=== PATIENT | male | born 1985 | race Caucasian/White ===

== ENCOUNTER 2018-05-21 12:05 | Emergency (ER) | payer MEDICAID, SELFPAY ==
[2018-05-21 12:10] VITALS: BP 150/62; PULSE 93; RESP 16; TEMP 36.4; O2SAT 98
--- NOTE | 2018-05-21 12:44 | ED.GENADUL_ITS ---
Discharge Plan Disposition Patient Disposition: AGAINST MEDICAL ADVICE Condition: Fair Discharge Details Chief Complaint: Nausea/Vomit/Diar Clinical Impression: Alcohol abuse, Abdominal pain Primary Care Provider: Joel Martinez ED Provider: Abigail Villafana Home Meds and New Rx's Prescriptions: No Action gabapentin 600 MG tablet 600 mg PO TID Qty: 270 RF: 4 buprenorphine-naloxone [Suboxone] 1 EACH film 8 mg Sublingual DAILY RF: 0 magnesium oxide 400 MG tablet 800 mg PO DAILY RF: 0 methocarbamol 500 MG tablet 500 mg PO Q 8 pm Qty: 30 RF: 3 acetaminophen [Mapap Extra Strength] 500 MG tablet 1,000 mg PO Q8H Qty: 60 RF: 2 ibuprofen 800 MG tablet 800 mg PO Q8H PRN PRNQty: 60 RF: 3 Discharge Instructions Instructions: Abuse of Alcohol (ED), Abdominal Pain (ED) Additional Instructions: You should stop drinking safely under the supervision of a physician or rehab. Return immediately to the emergency department any worsening or new concerning symptoms. Discharge Data Discharge Physician: Abigail Villafana Medical Decision Making 33yo M w/ a h/o daily alcohol use and former heroin/prescription drug abuse, on suboxone, who presents with 1 month ago of vomiting, diarrhea, weakness and productive cough and 1 week of epigastric and RLQ abdominal pain. Afebrile. Blood pressure and heart rate mildly elevated. Patient appears uncomfortable. Abdomen diffusely tender. No rigidity. No signs of acute abdomen. No other physical signs of acute alcohol withdrawal, no shaking or tremors. Differential diagnosis includes pancreatitis, gastroenteritis, appendicitis, pneumonia, cholecystitis, alcohol withdrawal, electrolyte abnormality. We will place an IV, fluids, labs, CT abdomen and pelvis and chest x-ray. Will give a dose of Zofran, Pepcid and order Ativan as needed. 1350 --nurse initially unable to obtain IV access due to poor peripheral access. Additional staff attempting to obtain IV and patient now requesting to leave. Patient stated if I waited to be taking care of by you guys, I would never be treated. It was discussed with patient that we had tried multiple times to obtain an IV, and subsequently around the same time a critical patient came into the ED which required multiple nursing staff. Patient refusing to sign AMA form or wait for paperwork. HPI General Mode of arrival: ambulatory . Date/Time Provider Initiated Documentation: 05/21/18 12:13 . Limitations to Documentation: no limitations . Information obtained by: patient . HPI Narrative: Patient is a 33-year-old male with a history of daily alcohol abuse and former heroin and prescription drug abuse on Suboxone who presents to the ED with complaint of 1 month of vomiting, alternating diarrhea and constipation, generalized weakness and cough. His cough has been productive of green sputum. States he has been vomiting approximately 20 times daily which is mainly yellow or bile. States he has not had diarrhea for the past few days but prior to that he had one episode daily of watery brown stool with no bleeding. States he has had history of pancreatitis and is concerned that this may be causing his epigastric and right lower quadrant pain for the past week. States the pain is diffuse and feels like bloating and is currently 8/10. He denies any known fever or urinary symptoms. He states his last alcoholic drink was this morning but this made him sick so he stopped. He drank because he thought it would make him feel better. States he did not drink at all yesterday due to his symptoms but states he normally drinks daily. Past medical history: Alcohol abuse, Heroin abuse, Migraines Surgical history: None Social history: Smokes tobacco, Daily alcohol use - 1 pint of liquor or 2 tall boys daily, Former oxycontin/hydrocodone addiction, former heroin user ~ clean since 2014 Meds: Suboxone Allergies: NKDA PCP: Dr. Martinez Related Data Home Medications Medication Instructions Recorded Confirmed buprenorphine-naloxone [Suboxone] 8 mg SUBLINGUAL DAILY film 10/11/17 05/21/18 gabapentin 600 mg PO TID #270 tab-cap 10/11/17 05/21/18 magnesium oxide 800 mg PO DAILY 11/18/17 05/21/18 acetaminophen [Mapap Extra 1,000 mg PO Q8H #60 tab 12/11/17 05/21/18 Strength] ibuprofen 800 mg PO Q8H PRN PRN #60 tablet 12/11/17 05/21/18 methocarbamol 500 mg PO Q 8 pm #30 tab-cap 12/16/17 05/21/18 Previous Rx's Medication Instructions Recorded gabapentin 600 mg PO TID #270 tab-cap 10/11/17 acetaminophen [Mapap Extra 1,000 mg PO Q8H #60 tab 12/11/17 Strength] ibuprofen 800 mg PO Q8H PRN PRN #60 tablet 12/11/17 methocarbamol 500 mg PO Q 8 pm #30 tab-cap 12/16/17 Allergies Allergy/AdvReac Type Severity Reaction Status Date / Time No Known Allergies Allergy Unverified 05/21/18 12:14 General Stated Complaint: Nausea/Vomit/Diar KAVEH: 3 Review of Systems Review of Systems All systems reviewed & are unremarkable except as noted in HPI and below Constitutional Denies chills, Denies excessive sweating, Denies fatigue, Denies fever(s), Reports weakness and Denies weight loss Eyes Reports system reviewed and no additional complaints, except as docu and Denies blurry vision ENT Denies vertigo, Denies dizziness, Denies otalgia, Denies nasal congestion, Denies sore throat and Denies throat swelling Cardiovascular Denies chest pain, Denies syncope, Denies rapid heart rate and Denies dyspnea Respiratory Denies dyspnea Gastrointestinal Reports abdominal pain, Reports diarrhea and Reports vomiting Genitourinary Denies hematuria, Denies dysuria and Denies flank pain Musculoskeletal Denies back pain and Denies joint swelling Integumentary/Breasts Denies lesions and Denies rash Neurologic Denies behavioral changes, Denies confusion, Denies vertigo, Denies dizziness, Denies syncope and Reports weakness Psychiatric Denies behavioral changes, Denies confusion and Denies depression Endocrine Denies excessive sweating and Denies fatigue Hematologic/Lymphatic Denies easy bruising and Denies lymphadenopathy Allergic/Immunologic Denies throat swelling PFSH Family History Mother Heart disease Asthma Father No problems noted. Sister Asthma Sister No problems noted. Brother No problems noted. Grandfather Essential hypertension Heart disease Asthma Grandfather Essential hypertension Heart disease Grandmother No problems noted. Grandmother No problems noted. Son No problems noted. Daughter No problems noted. Daughter Asthma Social History Smoking/Tobacco Use Status: Current every day Exam Const General: cooperative and healthy appearing Orientation: alert and awake [facility] Head: normal to inspection Ears: hearing grossly normal bilaterally and external ears normal General nose exam: external nose normal Face and sinus: normal facial exam Mouth: oral mucosae normal Teeth and gingiva: poor dentition Throat: posterior oropharynx normal Eyes General: appearance normal, both eyes and all related structures Eyelids: eyelids normal EOM: EOM intact bilaterally Neck Neck: normal visual inspection Lymphatic: no lymphadenopathy noted Chest Chest: normal inspection of the chest Resp Effort & Inspection: normal respiratory effort and able to speak in complete sentences Auscultation: clear to auscultation bilaterally Cardio Rate: regular rate Rhythm: regular rhythm GI Inspection: normal to inspection Palpation: soft, not firm, no guarding, no hepatosplenomegaly, no masses and tender in the epigastrum, in the RLQ and in the RUQ; not at McBurney's point, obturator sign negative, psoas sign negative and with no rebound tenderness Auscultation: normal bowel sounds Back/Spine/Pelvis Back: no CVA tenderness Skin General skin exam: no rashes or lesions noted Neuro General: alert and awake Cognition: normal cognition Speech: speech normal Gait: normal gait Motor: muscle tone normal throughout Sensory Exam: no sensory deficits noted Extrem General: normal to inspection, full ROM, normal capillary refill and no edema Psych Appearance: grossly normal Mental Status: mental status grossly normal Speech and Movement: speech and movement normal Affect: normal affect Thought Process: normal Course Vital Signs Temperature 97.5 F L 05/21/18 12:10 Pulse 93 H 05/21/18 12:10 Respiratory Rate 16 05/21/18 12:10 Blood Pressure 150/62 H 05/21/18 12:10 Pulse Oximetry 98 05/21/18 12:10 Temperature 97.5 F L 05/21/18 12:10 Temperature Source Skin 05/21/18 12:10 Pulse 93 H 05/21/18 12:10 Respiratory Rate 16 05/21/18 12:10 Respiratory Effort Non-Labored 05/21/18 12:12 Blood Pressure 150/62 H 05/21/18 12:10 Pulse Oximetry 98 05/21/18 12:10 Oxygen Delivery Method Room Air 05/21/18 12:10 Oxygen Flow Rate 0 05/21/18 12:10 Pain Level 8 05/21/18 12:10
== END 2018-05-21 13:58 | disposition left against medical advice (07) ==
LOC: ER 14:06
PROVIDERS: Emergency Provider Physician Assistant; PCP Family Medicine
DX: F10.10 Alcohol abuse, uncomplicated (principal); R10.13 Epigastric pain; Z53.29 Procedure and treatment not carried out because of patient's decision for other reasons; R10.31 Right lower quadrant pain
CPT/HCPCS: 80053; 83690; 99282; 83735; 84484; 85025

== ENCOUNTER 2018-07-07 10:45 | Emergency (ER) | payer MEDICAID, SELFPAY ==
[2018-07-07 10:54] VITALS: BP 129/79; PULSE 74; RESP 16; TEMP 36.8; O2SAT 99
--- NOTE | 2018-07-07 11:16 | DI.CT_ITS ---
SYMPTOMS/DIAGNOSIS: WRETCHING 1 MONTH, CHRONIC PANCREATITIS, SEVERE PAIN, ? GASTRIC PERFORATION, ACUTE ABD PROCESS CT OF THE CHEST: The heart size is normal. No pleural or pericardial effusions are seen. There is mild respiratory motion. The lungs appear clear. IMPRESSION: Negative chest CT. CT OF THE ABDOMEN AND PELVIS: There is patchy fatty infiltration of the liver. The gallbladder is unremarkable. No biliary dilatation is seen. The spleen is normal in size. There is some fluid around the pancreas and mild dilatation of the pancreatic duct. No focal mass is seen. There is no drainable pseudocyst. The appendix appears normal. Stool is noted throughout the colon. There are no inflammatory changes or bowel dilatation. The bladder and prostate are unremarkable. The kidneys also appear normal. IMPRESSION: Fluid is seen around the pancreas. There is no focal drainable pseudocyst. There is pancreatic ductal dilatation but no biliary dilatation or evidence of calcified gallstones.
[2018-07-07 12:02] LABS: Abs Immature Grans 0.05 k/cumm (0.0-0.09); Absolute Basophil Count 0.02 k/cumm (0.0-0.2); Absolute Eosinophil Count 0.04 k/cumm (0.0-0.7); Basophils % 0.1; Eosinophils % 0.2; HCT 51.2 % (40.0-50.0); HGB 17.9 g/dL (13.5-17.5); Immature Grans % 0.3; Lymphocytes % 6.6; Mean Corpuscular Hemoglobin 34.1 pg (27.0-33.0); Mean Corpuscular Volume 97.5 fL (80-95); Mean Platelet Volume 9.6 fL (8.0-11.0); Monocytes % 4.7; Neutrophils % 88.1; Platelet Count 248 x1000/uL (130-400); RBC 5.25 m/cumm (4.50-6.00); White Blood Cell Count 18.87 k/cumm (4.4-10.8)
--- NOTE | 2018-07-07 12:02 | ED.GENADUL_ITS ---
Discharge Plan Disposition Patient Disposition: HOME Condition: Good Discharge Details Chief Complaint: Abd Prob Clinical Impression: Acute pancreatitis Primary Care Provider: Joel Martinez ED Provider: Jarrod Vaughn Home Meds and New Rx's Prescriptions: New ondansetron HCl [Zofran] 4 mg tablet 4 mg PO QID PRN (Reason: nausea and vomiting) Qty: 20 RF: 0 No Action gabapentin 600 MG tablet 600 mg PO TID Qty: 270 RF: 4 Suboxone 1 EACH film 8 mg Sublingual DAILY RF: 0 magnesium oxide 400 MG tablet 800 mg PO DAILY RF: 0 methocarbamol 500 MG tablet 500 mg PO Q 8 pm Qty: 30 RF: 3 acetaminophen [Mapap Extra Strength] 500 MG tablet 1,000 mg PO Q8H Qty: 60 RF: 2 ibuprofen 800 MG tablet 800 mg PO Q8H PRN PRNQty: 60 RF: 3 Discharge Instructions Instructions: Pancreatitis (ED), Clear Liquid Diet (ED) Additional Instructions: Please take the Zofran as directed for control of your nausea. Please drink 10- 12 cups of fluids per day at minimum. Please start eating and drinking with clear liquids for water down juice and water. Avoid anything fatty. After 1-2 days of this please graduate towards low-sodium low-fat broth, applesauce, crackers and Jell-O. Gradually advance her diet daily from there. If you notice any return of your vomiting in spite of the Zofran please return for admission and IV hydration. If you notice any worsening of your symptoms, or any new symptoms such as vomiting, diarrhea, fever, chills, shortness of breath, chest pain, numbness, weakness, or fainting , please return immediately to the emergency department for reevaluation. Please follow up with your primary care provider as soon as possible for reassessment and reevaluation. As always, it was a pleasure participating in your medical care today. Referrals: Joel Martinez DO [Primary Care Provider] - Medical Decision Making This is a 33-year-old male with past medical history of pancreatitis secondary to alcohol use who presents with 1-2 months of chronic and worsening abdominal pain. His symptoms notably got worse over [place] when he did some drinking during the holidays. Patient has been vomiting 10-20 times per day. He describes it as yellow vomiting with no significant blood. No clinical red flags of Boerhaave syndrome or Melissa-Beckham tear. The patient's symptoms are made worse with food. Physical exam demonstrates tenderness throughout his abdomen including the epigastric region. Because of his symptoms and the frequency of his vomiting we will get a CT scan of the abdomen and chest to rule out any acute process. I do feel that his symptoms are most likely secondary to a worsening chronic pancreatitis versus pancreatic abscess or cyst. We will hold off on narcotics at this time secondary to the patient Suboxone use, but will give Toradol and Tylenol. We will rehydrate the patient and reassess. 1:[address] scan results have returned and per Dr. Mckeon the radiologist there is some mild fluid around the pancreas, but no evidence of Melissa-Beckham tear, mediastinal air, gastric perforation, or other acute abdominal pathology. Patient's laboratory workup demonstrates an elevated white count which I feel is most likely reactive secondary to his multiple episodes of vomiting. No evidence of bandemia. Electrolytes are normal however the patient has an elevated anion gap of 25 most likely secondary to his notably decreased bicarb from his vomiting. Renal function is stable, lipase is notably elevated. Glucose is normal, and laboratory workup is inconsistent with diabetic ketoacidosis. Notable urine ketones are present in the urine. We will do a p.o. trial, the patient has been rehydrated with 2 L of normal saline at this point. Patient's pain is notably improved currently. We will discuss discharge versus admission with the patient. 2 PM The patient has had a notable p.o. trial with a significant amount of water and he has done very well with this. Patient is feeling much better at this time. I had a long discussion with the patient regarding discharge versus admission. Since he is able to tolerate p.o. we have given discharge as an option clearly outlining the risks and benefits with both though especially in light of his labs. At this time patient is requesting discharge home, she do feel is reasonable however I made it very clear to the patient that if he is unable to tolerate anything p.o. that he needs to return immediately for admission and IV hydration. The patient will be given instructions for a brat diet and a graduated diet starting from clear liquids. I had a long and thorough discussion regarding red flags for which to return including a low threshold for return the patient understands. I have extensively reviewed the treatment plan and discharge instructions with the patient and their family. I have addressed all patient concerns at this time. The patient and family was made aware of what symptoms to monitor for that would warrant a return to the emergency department. Discussed the plan with the patient and family, they demonstrate verbal understanding and agreement with our assessment and plan at this time. HPI General Date/Time Provider Initiated Documentation: 07/07/18 10:46 . HPI Narrative: This is a 33-year-old male with a past medical history of IV drug use, who is currently on methadone, as well as a history of chronic alcoholic pancreatitis who presents today for evaluation of abdominal pain. Patient states that for the last month and 1/2-2 months he had has had consistent epigastric abdominal pain which she describes as burning stabbing and aching. It is worse with eating, it is improved by nothing. He has associated vomiting, 10-20 times per day. He describes the vomitus. Yellow with no significant blood. He denies any diarrhea. The patient's symptoms notably got worse over [place] when he did drinking around the holiday season. He had otherwise been sober for quite some time. The patient denies any red flags of tearing chest pain, systemic symptoms of fever or chills, or any other complaints. He states that this feels similar to his previous episodes of pancreatitis. Patient denies any other modifying factors aside for his symptoms being worse with anything he eats. It is improved by nothing. He has no other complaints at this time. Of note the patient did not illicit information initially that he was taking Suboxone or was seen at the Suboxone clinic earlier this morning. Patient denies any previous surgeries on his abdomen. He does admit to both t obacco and marijuana use. Marijuana does not improve his symptoms. His symptoms are not improved with hot showers. He denies any current IV or illicit drug use. Related Data Home Medications Medication Instructions Recorded Confirmed Suboxone 8 mg SUBLINGUAL DAILY film 10/11/17 07/07/18 gabapentin 600 mg PO TID #270 tab-cap 10/11/17 07/07/18 magnesium oxide 800 mg PO DAILY 11/18/17 07/07/18 acetaminophen [Mapap Extra 1,000 mg PO Q8H #60 tab 12/11/17 07/07/18 Strength] ibuprofen 800 mg PO Q8H PRN PRN #60 tablet 12/11/17 07/07/18 methocarbamol 500 mg PO Q 8 pm #30 tab-cap 12/16/17 07/07/18 ondansetron HCl [Zofran] 4 mg PO QID PRN #20 tab 07/07/18 Previous Rx's Medication Instructions Recorded gabapentin 600 mg PO TID #270 tab-cap 10/11/17 acetaminophen [Mapap Extra 1,000 mg PO Q8H #60 tab 12/11/17 Strength] ibuprofen 800 mg PO Q8H PRN PRN #60 tablet 12/11/17 methocarbamol 500 mg PO Q 8 pm #30 tab-cap 12/16/17 ondansetron HCl [Zofran] 4 mg PO QID PRN #20 tab 07/07/18 Allergies Allergy/AdvReac Type Severity Reaction Status Date / Time No Known Allergies Allergy Unverified 07/07/18 12:55 General Stated Complaint: Abd Prob KAVEH: 3 Review of Systems Review of Systems All systems reviewed & are unremarkable except as noted in HPI and below PFSH Social History Smoking/Tobacco Use Status: Current every day Exam Narrative Exam Narrative: 1.Const: Well-nourished, Well-developed, appearing stated age 2.Eyes: PERRL, no conjunctival injection, and symmetrical lids. 3.ENT: Atraumatic external nose and ears. Notably dry MM. Neck: Symmetric, trachea midline, No thyromegaly. 4.CVS: +S1/S2, No murmurs or gallops. Peripheral pulses 2+ and equal in all extremities. Brisk capillary refill in all extremities. No evidence of Marika's crunch, or other abnormality. 5.RESP: Unlabored respiratory effort. Clear to auscultation bilaterally. No wheezes rales or rhonchi 6.GI: Soft, nondistended, tenderness throughout, voluntary guarding in the epigastric region. No evidence of an acute surgical abdomen. 7.MSK: Normocephalic/Atraumatic, Extremities w/o deformity or ttp No cyanosis or clubbing, Normal movement of all extremities 8.Skin: Warm, Dry. No rashes or lesions. No subcutaneous crepitus around the neck or under the skin under the chest. 9.Neuro: cruise staff member II-XII grossly intact. Sensation grossly intact, no focal neurologic deficits. 10.Psych: (AAO) x3. Appropriate mood and affect Course Vital Signs Temperature 36.8 C 07/07/18 10:54 Pulse 74 07/07/18 10:54 Respiratory Rate 16 07/07/18 10:54 Blood Pressure 129/79 07/07/18 10:54 Pulse Oximetry 99 07/07/18 10:54 Temperature 36.8 C 07/07/18 10:54 Temperature Source Skin 07/07/18 10:54 Pulse 74 07/07/18 10:54 Respiratory Rate 16 07/07/18 10:54 Respiratory Effort 07/07/18 11:09 Blood Pressure 129/79 07/07/18 10:54 Blood Pressure Position Sitting 07/07/18 10:54 Pulse Oximetry 99 07/07/18 10:54 Oxygen Delivery Method Room Air 07/07/18 10:54 Oxygen Flow Rate 0 07/07/18 10:54 Pain Level 9 07/07/18 10:54
[2018-07-07 12:03] LABS: Absolute Lymphocyte Count 1.25 k/cumm (1.2-3.4); Absolute Monocyte Count 0.89 k/cumm (0.11-0.7); Absolute Neutrophil Count 16.62 k/cumm (1.2-6.7)
[2018-07-07] MEDS: Acetaminophen 500 MG TAB 1000 MG PO (12:06)
[2018-07-07] MEDS: Ketorolac 30 MG/ML VIAL IVP (12:07)
[2018-07-07] MEDS: Ondansetron 4 MG/2 ML VIAL IVP (12:08)
[2018-07-07] MEDS: Lactated Ringers 1,000 ML 1000 ML IV (12:09)
[2018-07-07 12:18] LABS: Bilirubin Negative (Negative); Blood Trace-intact (Negative); Clarity Clear; Glucose Negative (Negative); Ketones 80 mg/dL (Negative); Leukocyte Esterase Negative (Negative); Nitrite Negative (Negative); Specific Gravity >= 1.030 (1.005-1.025); Urobilinogen 0.2 EU/dL (Up TO 0.2)
[2018-07-07 12:20] LABS: ALT 86 U/L (12-78); AST 82 U/L (15-37); Albumin 5.3 g/dL (3.4-5.0); Alkaline Phosphatase 102 U/L (46-116); Anion Gap 25.6 mmol/L (3-11); BUN 13 mg/dL (7-18); Bilirubin, Total 0.8 mg/dL (0.2-1.0); CO2 14.4 mmol/L (21.0-32.0); CREATININE 1.11 mg/dL (0.70-1.30); Calcium 9.8 mg/dL (8.5-10.1); Chloride 95 mmol/L (98-107); Glucose 91 mg/dL (70-100); Lipase 1351 U/L (73-393); Sodium 135 mmol/L (136-145); Total Protein 9.8 g/dL (6.4-8.2)
[2018-07-07 12:29] LABS: Bacteria Negative HPF (Negative); C & S Indicated? No; Casts 3-5 Hyaline LPF (Negative); Crystals Few Amorphous HPF (Negative); Epithelial Cells Few HPF (Negative); Mucus Trace (Negative); RBC 0-2 (0-2); WBC 0-2 HPF (0-5)
[2018-07-07] MEDS: Normal Saline 1,000 ML 1000 ML IV (12:50)
[2018-07-07] MEDS: Omnipaque 350 MG/ML 100 ML BTL IJ (13:11)
--- NOTE | 2018-07-07 13:46 | NUR.NOTE ---
Nursipt sitting up drinking water at this time just little sips with ice and tolerating well ng Note:
[2018-07-07 14:00] VITALS: BP 136/66; PULSE 63; RESP 16; TEMP 37.1; O2SAT 99
== END 2018-07-07 14:12 | disposition home or self-care (01) ==
PROVIDERS: Emergency Provider Student in an Organized Health Care Education/Training Program; PCP Family Medicine
DX: K85.90 Acute pancreatitis without necrosis or infection, unspecified (principal); Z79.891 Long term (current) use of opiate analgesic; F10.20 Alcohol dependence, uncomplicated
CPT/HCPCS: 36415; 74177; 80053; 83690; 96361; 96374; 96375; 99285; 71260; 81003; 81015; 85025; 99284; J1885; J2405; J3490

== ENCOUNTER 2018-07-07 21:12 | Inpatient (IN) | payer MEDICAID, SELFPAY ==
[2018-07-07 21:14] VITALS: BP 150/80; PULSE 55; RESP 16; TEMP 36.8; O2SAT 99
--- NOTE | 2018-07-07 21:22 | ED.GENADUL_ITS ---
Discharge Plan Disposition Patient Disposition: [facility] INPATIENT Condition: Stable Discharge Details Chief Complaint: Abd Prob Clinical Impression: Acute pancreatitis Reason For Visit: TA Primary Care Provider: Joel Martinez ED Provider: Alex Avendaño Home Meds and New Rx's Prescriptions: No Action gabapentin 600 MG tablet 600 mg PO TID Qty: 270 RF: 4 Suboxone 1 EACH film 8 mg Sublingual DAILY RF: 0 magnesium oxide 400 MG tablet 800 mg PO DAILY RF: 0 methocarbamol 500 MG tablet 500 mg PO Q 8 pm Qty: 30 RF: 3 acetaminophen [Mapap Extra Strength] 500 MG tablet 1,000 mg PO Q8H Qty: 60 RF: 2 ibuprofen 800 MG tablet 800 mg PO Q8H PRN PRNQty: 60 RF: 3 ondansetron HCl [Zofran] 4 mg tablet 4 mg PO QID PRN (Reason: nausea and vomiting) Qty: 20 RF: 0 Medical Decision Making Patient comes in with abodminal pain and persistent vomit since being d/c'd earlier with pancreatitis. He was able to tolerate PO at that time but hasn't since being home and pain hasn't been controlled so came back here. He is actively vomit on my exam. Has epigastric pain without distention. Will repeat labs and speak to hospitalist about admission given he failed outpatient management. HAd CT earlier today so do not feel repeat imaging to eval for acute process is indicated Spoke with Dr. Lazcano who accepts the patient. He feels better but still has pain, will order more pain medication, no long having vomit. He still has no guarding or rebound on exam. Differential Diagnosis pancretitis, hepatitis Lab Data Lab results reviewed: Yes I reviewed the patient's lab results. HPI General Mode of arrival: EMS . Date/Time Provider Initiated Documentation: 07/07/18 21:13 . Limitations to Documentation: no limitations . Information obtained by: patient . History of Present Illness 33 year old M presents to the emergency department with the chief complaint of abdominal pain, described as severe, with intensity rated at 10. Quality is described as sharp, and is localized to the abdomen. Patient started experiencing this day(s) (2) and it has been constant. No relieving factors improve symptom(s), No exacerbating factors reported . Patient notes nausea/vomiting. Patient did receive the following treatments prior to arrival, none Related Data Home Medications Medication Instructions Recorded Confirmed Suboxone 8 mg SUBLINGUAL DAILY film 10/11/17 07/07/18 gabapentin 600 mg PO TID #270 tab-cap 10/11/17 07/07/18 magnesium oxide 800 mg PO DAILY 11/18/17 07/07/18 acetaminophen [Mapap Extra 1,000 mg PO Q8H #60 tab 12/11/17 07/07/18 Strength] ibuprofen 800 mg PO Q8H PRN PRN #60 tablet 12/11/17 07/07/18 methocarbamol 500 mg PO Q 8 pm #30 tab-cap 12/16/17 07/07/18 ondansetron HCl [Zofran] 4 mg PO QID PRN #20 tab 07/07/18 07/07/18 Previous Rx's Medication Instructions Recorded gabapentin 600 mg PO TID #270 tab-cap 10/11/17 acetaminophen [Mapap Extra 1,000 mg PO Q8H #60 tab 12/11/17 Strength] ibuprofen 800 mg PO Q8H PRN PRN #60 tablet 12/11/17 methocarbamol 500 mg PO Q 8 pm #30 tab-cap 12/16/17 ondansetron HCl [Zofran] 4 mg PO QID PRN #20 tab 07/07/18 Allergies Allergy/AdvReac Type Severity Reaction Status Date / Time No Known Allergies Allergy Unverified 07/07/18 12:55 General Stated Complaint: Abd Prob KAVEH: 3 Review of Systems Review of Systems All systems reviewed & are unremarkable except as noted in HPI and below Constitutional Denies chills, Denies fever(s) and Denies weakness ENT Denies change in voice Cardiovascular Denies chest pain Gastrointestinal Denies nausea Musculoskeletal Denies joint swelling Neurologic Denies weakness Endocrine Denies cold intolerance and Denies heat intolerance PFSH Family History Mother Heart disease Asthma Father No problems noted. Sister Asthma Sister No problems noted. Brother No problems noted. Grandfather Essential hypertension Heart disease Asthma Grandfather Essential hypertension Heart disease Grandmother No problems noted. Grandmother No problems noted. Son No problems noted. Daughter No problems noted. Daughter Asthma Social History Smoking/Tobacco Use Status: Current every day Exam Const Orientation: alert HENMT Head: normal to inspection Ears: external ears normal General nose exam: external nose normal Mouth: moist mucous membranes Eyes General: appearance normal, both eyes and all related structures Neck Neck: normal visual inspection Resp Effort & Inspection: normal respiratory effort and able to speak in complete sentences Cardio Rate: regular rate Skin General skin exam: no rashes or lesions noted Neuro General: alert and oriented x3 Extrem General: normal to inspection Psych Mental Status: mental status grossly normal Course Vital Signs Temperature 36.8 C 07/07/18 21:14 Pulse 55 L 07/07/18 21:14 Respiratory Rate 16 07/07/18 21:14 Blood Pressure 150/80 H 07/07/18 21:14 Pulse Oximetry 99 07/07/18 21:14 Temperature 36.8 C 07/07/18 21:14 Temperature Source Skin 07/07/18 21:14 Pulse 55 L 07/07/18 21:14 Respiratory Rate 16 07/07/18 21:14 Blood Pressure 150/80 H 07/07/18 21:14 Blood Pressure Position Sitting 07/07/18 21:14 Pulse Oximetry 99 07/07/18 21:14 Oxygen Delivery Method Room Air 07/07/18 21:14 Oxygen Flow Rate 0 07/07/18 21:14
[2018-07-07] MEDS: Normal Saline 50 ML (21:46)
[2018-07-07] MEDS: HYDROmorphone 2 MG/ML VIAL IVP (21:46)
[2018-07-07] MEDS: Normal Saline 1,000 ML 1000 ML IV (21:47)
[2018-07-07 22:00] LABS: Abs Immature Grans 0.04 k/cumm (0.0-0.09); Absolute Basophil Count 0.02 k/cumm (0.0-0.2); Absolute Eosinophil Count 0.09 k/cumm (0.0-0.7); Absolute Lymphocyte Count 1.31 k/cumm (1.2-3.4); Basophils % 0.1; Eosinophils % 0.6; HCT 47.9 % (40.0-50.0); HGB 16.8 g/dL (13.5-17.5); Immature Grans % 0.3; Lymphocytes % 8.3; Mean Corp. HGB Concentration 35.1 g/dL (32.0-36.0); Mean Corpuscular Hemoglobin 33.8 pg (27.0-33.0); Mean Corpuscular Volume 96.4 fL (80-95); Mean Platelet Volume 9.8 fL (8.0-11.0); Monocytes % 7.5; Neutrophils % 83.2; Platelet Count 216 x1000/uL (130-400); RBC 4.97 m/cumm (4.50-6.00); RBC Distribution Width 12.1 % (11.8-14.1); White Blood Cell Count 15.82 k/cumm (4.4-10.8)
[2018-07-07 22:01] LABS: Absolute Monocyte Count 1.19 k/cumm (0.11-0.7); Absolute Neutrophil Count 13.16 k/cumm (1.2-6.7)
[2018-07-07] MEDS: HYDROmorphone 2 MG/ML VIAL 1 MG IVP (22:06)
[2018-07-07 22:12] LABS: ALT 68 U/L (12-78); AST 56 U/L (15-37); Albumin 4.8 g/dL (3.4-5.0); Alkaline Phosphatase 87 U/L (46-116); BUN 11 mg/dL (7-18); Bilirubin, Direct 0.26 mg/dL (0.00-0.20); Bilirubin, Total 1.1 mg/dL (0.2-1.0); CREATININE 1.02 mg/dL (0.70-1.30); Calcium 9.7 mg/dL (8.5-10.1); Chloride 98 mmol/L (98-107); Glucose 98 mg/dL (70-100); Magnesium 1.9 mg/dL (1.8-2.4); Potassium 3.8 mmol/L (3.5-5.1); Sodium 136 mmol/L (136-145); Total Protein 8.5 g/dL (6.4-8.2)
[2018-07-07 23:01] LABS: ETHANOL BLOOD < 3.0 mg/dL (<3); Lipase 7127 U/L (73-393)
[2018-07-07 23:08] VITALS: BP 150/80; PULSE 55; RESP 16; TEMP 36.8; O2SAT 99
[2018-07-07 23:37] VITALS: BP 144/85; PULSE 48; RESP 16; TEMP 36.5; O2SAT 100
[2018-07-08] VITALS (79 sets, daily range): BP systolic 127–172; BP diastolic 67–97; PULSE 52–82; RESP 11–22; TEMP 36.5–37.7; O2SAT 80–100
[2018-07-08] MEDS: Normal Saline Flush 10 ML SYR IVP ×3 (00:40→10:36)
[2018-07-08] MEDS: Normal Saline 50 ML 100 ML (00:40)
[2018-07-08 01:05] LABS: *AMPHETAMINES SCREEN URINE Negative (Negative); *BARBITURATES SCREEN URINE Negative (Negative); *BENZODIAZEPINES SCREEN URINE Negative (Negative); Cannabinoids THC POSITIVE (Negative); Cocaine Screen,Urine Negative (Negative); METHADONE URINE SCREEN Negative (Negative); OPIATES URINE SCREEN POSITIVE (Negative)
[2018-07-08 01:07] LABS: Tricyclic Antidepressants Negative (Negative)
--- NOTE | 2018-07-08 02:03 | HPE_ITS ---
Date of service: 07/08/18 Time of Service: 02:02 Assessment and Plan (1) Acute pancreatitis: Current visit: Yes Status: Acute Most likely cause of his pancreatitis is his chronic alcohol abuse. CT scan of the abdomen and pelvis failed to show any calcified gallstones. Nevertheless will follow up with an abdominal ultrasound in the morning. Keep n.p.o. for now and give aggressive IV fluid hydration along with narcotic analgesics and antiemetics. (2) High anion gap metabolic acidosis: Current visit: Yes Status: Acute Probably secondary to dehydration and chronic alcoholism in the setting of acute pancreatitis. Will check venous blood gas to assess acidosis and obtain blood lactate level. Continue with aggressive IV fluid hydration (3) Alcohol abuse: Current visit: Yes Status: Chronic Patient states he went through acute alcohol withdrawal the first time he abstain from alcohol. He reportedly has not had a drink of alcohol for a week now. Nevertheless we will monitor CIWA scale and treat accordingly (4) Elevated transaminase level: Current visit: Yes Status: Acute Probably due to alcoholic hepatitis. However given his tattoos and history of IV drug abuse will screen him for HIV and hepatitis History of Present Illness Chief Complaint: nausea, vomiting, abdominal pain Narrative: 33-year-old male with a history of alcohol abuse and former abuser of heroin and narcotics currently in his Suboxone maintenance program to [facility]. He presented earlier on morning of July 07, 2018 to the emergency department with nausea and vomiting and was diagnosed with acute pancreatitis and was found to have an elevated lipase of 1351 and mild elevation of his transaminases and CT scan demonstrated peripancreatic fluid and mild dilatation of the pancreatic duct with no evidence for pseudocyst nor evidence of calcified gallstones. Working diagnosis was that he had acute alcoholic pancreatitis. He has had a history of pancreatitis in the past was first diagnosed in 2015. It is been recommended to him that he be admitted to the hospital when he first presented the emergency room on the morning of July 07, 2018 but because he was able to keep down fluids he decided he would try to treat this as an outpatient. He represented to the emergency department later in the evening of July 07, 2018 with continued nausea and vomiting and worsening abdominal pain. Imaging was not repeated but labs were repeated and now his lipase was found to be elevated to over 7000 and a leukocytosis of 15,000 and an elevated anion gap of 23 with modest elevation of his transaminases with an AST of 56 but a normal alkaline phosphatase of 87 and an elevated total bilirubin of 1.1. Urine drug screen was positive for opiates and THC but otherwise was negative for routine drugs of abuse including methadone barbiturates tricyclic antidepressants amphetamines and benzodiazepines and cocaine. Patient is now admitted for treatment of acute pancreatitis and dehydration. Repeat imaging with an abdominal ultrasound will be performed in the morning. Review of Systems Review of Systems All systems reviewed & are unremarkable except as noted in HPI and below Constitutional Reports system reviewed and no additional complaints, except as docu Gastrointestinal Reports abdominal pain (epigastric and LUQ), Denies coffee ground emesis, Reports nausea and Reports vomiting (biliary emesis) [facility] Medical History Acute pancreatitis (Acute) Opiate addiction (Chronic) Alcohol abuse (Chronic) Heroin abuse (Chronic) Chronic back pain (Chronic) Depression (Chronic) Anxiety, generalized (Chronic) Family History Mother Heart disease Asthma Father No problems noted. Sister Asthma Sister No problems noted. Brother No problems noted. Grandfather Essential hypertension Heart disease Asthma Grandfather Essential hypertension Heart disease Grandmother No problems noted. Grandmother No problems noted. Son No problems noted. Daughter No problems noted. Daughter Asthma Social History Smoking/Tobacco Use Status: Current every day Meds Home Medications Medication Instructions Recorded Confirmed Type Suboxone 8 mg SUBLINGUAL DAILY film 10/11/17 07/07/18 History gabapentin 600 mg PO TID #270 tab-cap 10/11/17 07/07/18 Rx magnesium oxide 800 mg PO DAILY 11/18/17 07/07/18 History acetaminophen [Mapap Extra 1,000 mg PO Q8H #60 tab 12/11/17 07/07/18 Rx Strength] ibuprofen 800 mg PO Q8H PRN PRN #60 tablet 12/11/17 07/07/18 Rx methocarbamol 500 mg PO Q 8 pm #30 tab-cap 12/16/17 07/07/18 Rx ondansetron HCl [Zofran] 4 mg PO QID PRN #20 tab 07/07/18 07/07/18 Rx Allergies Allergy/AdvReac Type Severity Reaction Status Date / Time No Known Allergies Allergy Unverified 07/07/18 12:55 Exam Const General: uncooperative, acute distress moderate, anxious and ill appearing Nutritional Appearance: average body habitus Orientation: alert, awake and oriented x3 Limitations: other limitations (poor historian; not cooperative in obtaining history secondary to abd. pain) [facility] Head: normal to inspection Chest Chest: normal inspection of the chest and normal palpation of entire chest wall Resp Effort & Inspection: normal respiratory effort and able to speak in complete sentences Auscultation: clear to auscultation bilaterally Cardio Jugular venous pressure: no JVD Palpation: normal PMI Rate: tachycardic Rhythm: regular rhythm Heart Sounds: S1 normal, S2 normal and normal, physiologic split S2 Pulses: normal peripheral pulses GI Palpation: soft, no hepatosplenomegaly, guarding in the LUQ and tender in the epigastrum and in the LUQ Percussion: normal to percussion Auscultation: hypoactive bowel sounds Skin General skin exam: no rashes or lesions noted Neuro General: alert, awake, oriented x3, moves all extremities and no focal motor deficits Cognition: normal cognition Speech: speech normal Motor: muscle tone normal throughout and strength 5/5 throughout Sensory Exam: no sensory deficits noted Extrem General: normal to inspection, full ROM, normal capillary refill and no clubbing, cyanosis or edema Psych Appearance: disheveled Mental Status: mental status grossly normal Speech and Movement: speech and movement normal Mood: congruent mood Affect: normal affect Attitude: guarded and avoids eye contact Thought Process: normal Thought Content: normal Insight: fair Judgment: fair Results Imaging Abdomen CT scan report/results: report reviewed (CT OF THE ABDOMEN AND PELVIS: There is patchy fatty infiltration of the liver. The gallbladder is unremarkable. No biliary dilatation is seen. The spleen is normal in size. There is some fluid around the pancreas and mild dilatation of the pancreatic duct. No focal mass is seen. There is no draina) Labs : 07/07/18 21:40 07/08/18 02:25 Laboratory Results - last 24 hr 07/07/18 07/07/18 07/08/18 21:40 21:40 00:30 WBC 15.82 H RBC 4.97 Hgb 16.8 Hct 47.9 MCV 96.4 H MCH 33.8 H MCHC 35.1 RDW 12.1 Plt Count 216 MPV 9.8 Immature Gran % 0.3 Neutrophils % 83.2 Lymphocytes % 8.3 Monocytes % 7.5 Eosinophils % 0.6 Basophils % 0.1 Absolute Neutrophils 13.16 H Absolute Lymphocytes 1.31 Absolute Monocytes 1.19 H Absolute Eosinophils 0.09 Absolute Basophils 0.02 Sodium 136 Potassium 3.8 D Chloride 98 Carbon Dioxide 15.0 L Anion Gap 23.0 H BUN 11 Creatinine 1.02 Estimated GFR/1.73 m2 >= 60.00 Glucose 98 Calcium 9.7 Magnesium 1.9 Total Bilirubin 1.1 H Conjugated Bilirubin 0.26 H AST 56 H ALT 68 Alkaline Phosphatase 87 Total Protein 8.5 H Albumin 4.8 Lipase 7127 H Urine Opiates Screen Positive Urine Methadone Screen Negative Ur Barbiturates Screen Negative Ur Tricyclics Screen Negative Ur Amphetamines Screen Negative U Benzodiazepines Scrn Negative Urine Cocaine Screen Negative Ur THC Screen Positive Ethyl Alcohol < 3.0 Last Vital Signs Temp 36.5 C 07/07/18 23:37 Pulse 48 L 07/07/18 23:37 Resp 16 07/07/18 23:37 BP 144/85 H 07/07/18 23:37 Pulse Ox 100 07/07/18 23:37
[2018-07-08] MEDS: HYDROmorphone 2 MG/ML VIAL IVP ×5 (02:04→13:43)
[2018-07-08] MEDS: Lactated Ringers 1,000 ML 250 ML IV ×4 (02:07→20:43)
[2018-07-08 02:29] LABS: HCO3 (Venous) 16 mmol/L (22-28); O2 Sat (Venous) 87 % (70-80); TCO2 (Venous) 14 mmol/L (22-29); pCO2 (Venous) 30 mm/Hg (34-47); pH (Venous) 7.32 (7.32-7.43); pO2 (Venous) 49 mm/Hg (28-44)
[2018-07-08 02:30] LABS: BE (Venous) -10.4 mmol/L (-3-3); Lactate-non-spesis 1.1 mmol/L (0.6-1.4)
[2018-07-08] MEDS: Ondansetron 4 MG/2 ML VIAL IVP ×3 (02:38→13:42)
[2018-07-08 02:41] LABS: Anion Gap 18.9 mmol/L (3-11); BUN 9 mg/dL (7-18); CO2 16.1 mmol/L (21.0-32.0); CREATININE 0.77 mg/dL (0.70-1.30); Calcium 8.8 mg/dL (8.5-10.1); Chloride 101 mmol/L (98-107); Glucose 105 mg/dL (70-100); Potassium 4.1 mmol/L (3.5-5.1); Sodium 136 mmol/L (136-145)
--- NOTE | 2018-07-08 07:46 | NUR.NOTE ---
Nursing Note: 0745: called [facility] and spoke with Ronit dispensing nurse. verified suboxone dosing of 8mg with last dose at [facility] on 07/07/2018. pt concerned that he cannot slate picker his take home dosing; Ronit states that pt can come if discharged and get his dosing as needed. please send a letter with pt at discharge for [facility] with last dosing information from [facility].
[2018-07-08] MEDS: Buprenorphine/Naloxone 8 mg/2 mg FILM 1 EACH SL (08:02)
[2018-07-08] MEDS: Gabapentin 600 MG TAB PO ×2 (08:02→19:49)
[2018-07-08 08:13] LABS: Abs Immature Grans 0.04 k/cumm (0.0-0.09); Absolute Basophil Count 0.01 k/cumm (0.0-0.2); Absolute Eosinophil Count 0.09 k/cumm (0.0-0.7); Absolute Lymphocyte Count 1.04 k/cumm (1.2-3.4); Absolute Monocyte Count 1.28 k/cumm (0.11-0.7); Absolute Neutrophil Count 11.78 k/cumm (1.2-6.7); Basophils % 0.1; Eosinophils % 0.6; HCT 43.9 % (40.0-50.0); HGB 15.2 g/dL (13.5-17.5); Immature Grans % 0.3; Lymphocytes % 7.3; Mean Corp. HGB Concentration 34.6 g/dL (32.0-36.0); Mean Corpuscular Hemoglobin 33.6 pg (27.0-33.0); Mean Corpuscular Volume 97.1 fL (80-95); Mean Platelet Volume 10.3 fL (8.0-11.0); Neutrophils % 82.7; Platelet Count 193 x1000/uL (130-400); RBC 4.52 m/cumm (4.50-6.00); RBC Distribution Width 11.9 % (11.8-14.1); White Blood Cell Count 14.24 k/cumm (4.4-10.8)
[2018-07-08 08:32] LABS: HIV 1/2 Ab Rapid Negative (Negative)
[2018-07-08 08:34] LABS: ALT 51 U/L (12-78); AST 40 U/L (15-37); Albumin 3.9 g/dL (3.4-5.0); Alkaline Phosphatase 70 U/L (46-116); Anion Gap 17.1 mmol/L (3-11); BUN 7 mg/dL (7-18); Bilirubin, Total 0.9 mg/dL (0.2-1.0); CO2 16.9 mmol/L (21.0-32.0); CREATININE 0.68 mg/dL (0.70-1.30); Chloride 102 mmol/L (98-107); Glucose 105 mg/dL (70-100); Magnesium 1.9 mg/dL (1.8-2.4); Potassium 3.8 mmol/L (3.5-5.1); Sodium 136 mmol/L (136-145); Total Protein 7.2 g/dL (6.4-8.2)
[2018-07-08 08:35] LABS: Lipase 2143 U/L (73-393)
--- NOTE | 2018-07-08 10:23 | DI.US_ITS ---
SYMPTOMS/DIAGNOSIS: PANCREATITIS ABDOMEN ULTRASOUND: Comparison is made with CT dated . The liver is again noted to show fatty infiltration. The gallbladder has a normal appearance. No stones, wall thickening or biliary dilatation is seen. A small amount of fluid is seen around the tail of the pancreas. There is a trace amount of fluid near the inferior pole of the right kidney. The spleen is normal in size. IMPRESSION: A small amount of fluid is seen around the pancreas and near the lower pole of the right kidney. No biliary dilatation, gallstones or common duct stones are seen.
[2018-07-08 11:03] LABS: Bilirubin Small (Negative); Blood Negative (Negative); Clarity Clear; Glucose Negative (Negative); Ketones >=160 mg/dL (Negative); Leukocyte Esterase Negative (Negative); Nitrite Negative (Negative); Specific Gravity >= 1.030 (1.005-1.025); Urobilinogen 0.2 EU/dL (Up TO 0.2)
[2018-07-08 11:05] LABS: C & S Indicated? C&S Done As Ordered
[2018-07-08] MEDS: LORazepam 1 MG TAB PO/SL (11:15)
[2018-07-08 11:49] LABS: Bacteria Negative HPF (Negative); Casts Negative LPF (Negative); Crystals Negative HPF (Negative); Epithelial Cells Rare HPF (Negative); Mucus Negative (Negative); Other Cells Few Transitional (Negative); RBC Negative (0-2); WBC 0-2 HPF (0-5)
--- NOTE | 2018-07-08 12:31 | DI.MRI_ITS ---
SYMPTOMS/DIAGNOSIS: ACUTE PANCREATITIS, ? CHOLEDOCHOLITHIASIS, MRCP MRI OF THE ABDOMEN AND MRCP: Comparison is made with abdominal and pelvic CT dated June,. The exam is limited by patient motion. No biliary dilatation was demonstrated on the ultrasound or previous CT. No biliary dilatation is demonstrated on the current exam. No gallstones or common bile duct stones are seen. There is no abnormal gallbladder wall thickening. The common bile duct is normal in diameter. There is mild dilatation of the pancreatic duct, unchanged. No pancreatic mass is visible. Ascites is present, which appears to have increased when compared with the previous CT. The liver shows fatty infiltration. The kidneys, spleen and adrenals are unremarkable. IMPRESSION: Increased ascites. No evidence of biliary dilatation, gallstones or common duct stones. There is stable mild dilatation of the pancreatic duct.
[2018-07-08] MEDS: Nicotine 14 MG/24 HR PATCH TD (13:42)
[2018-07-08] MEDS: THIAMINE 100 MG in Normal Saline 100 ML 200 MG IVPB (15:06)
--- NOTE | 2018-07-08 16:50 | PDOC.CMIN ---
- If Service Date Differs Date of service: 07/08/18 Time of Service: 16:50 Care Management Initial Assess REASON FOR HOSPITALIZATION:: Pancreatitis and ETOH withdrawal PAST MEDICAL HISTORY/PAST SURGICAL HISTORY:: Acute pancreatitis, opiate addiction, alcohol abuse, elevated transaminase level, chronic back pain, depression, anxiety general. PREVIOUS FUNCTIONAL STATUS/SOCIAL/FAMILY SUPPORTS:: Jose lives with his fianc?e in [facility] he works full-time at [employer]. He identifies his support system as his fianc?. He is independent with ADLs he uses [facility] for transportation. CURRENT FUNCTIONAL STATUS:: Jose is lying in bed, he does not make eye contact nor does he engage with disease case manager rn. He states he is unable to engage due to pain and nausea in his abdomen. Jose is currently being monitored for alcohol withdrawal his CIWA scores have been increasing. ADVANCE DIRECTIVES:: None on file Has patient been provided with information about the portal?: Yes Did the patient sign up for the portal?: No CODE STATUS:: Full Code INSURANCE COVERAGE / FINANCIAL ISSUES:: Medicaid CURRENT HOME/COMMUNITY SERVICES/EQUIPMENT:: [employer], [employer] PRIMARY CARE PHYSICIAN:: POTENTIAL DISCHARGE NEEDS:: Follow-up appointment with primary care provider scheduled prior to discharge.Will need a last dose letter for BAART upon discharge. PATIENT/FAMILY EDUCATION NEEDS:: Discharge education, limitations, follow-up plan of care, and ask me 3 education. Education related to substance abuse and support services. ANTICIPATED BARRIERS TO DISCHARGE:: No anticipated barriers identified at this time. TRANSPORTATION:: Via [facility] at time of discharge. PLAN:: Jose is currently receiving IV fluids, pain management, antiemetics, and benzodiazepines for withdrawal. He continues to be monitored for alcohol withdrawal, and transferred to the ICU for acute detox. CM will continue to provide support to patient, care team, discharge planning.
--- NOTE | 2018-07-08 17:25 | INITIAL_ITS ---
- If Service Date Differs Date of service: 07/08/18 Time of Service: 16:50 Care Management Initial Assess REASON FOR HOSPITALIZATION:: Pancreatitis and ETOH withdrawal PAST MEDICAL HISTORY/PAST SURGICAL HISTORY:: Acute pancreatitis, opiate addiction, alcohol abuse, elevated transaminase level, chronic back pain, depression, anxiety general. PREVIOUS FUNCTIONAL STATUS/SOCIAL/FAMILY SUPPORTS:: Jose lives with his fianc?e in [facility] he works full-time at [employer]. He identifies his support system as his fianc?. He is independent with ADLs he uses [facility] for transportation. CURRENT FUNCTIONAL STATUS:: Jose is lying in bed, he does not make eye contact nor does he engage with immigration case worker. He states he is unable to engage due to pain and nausea in his abdomen. Jose is currently being monitored for alcohol withdrawal his CIWA scores have been increasing. ADVANCE DIRECTIVES:: None on file Has patient been provided with information about the portal?: Yes Did the patient sign up for the portal?: No CODE STATUS:: Full Code INSURANCE COVERAGE / FINANCIAL ISSUES:: Medicaid CURRENT HOME/COMMUNITY SERVICES/EQUIPMENT:: [employer], [employer] PRIMARY CARE PHYSICIAN:: POTENTIAL DISCHARGE NEEDS:: Follow-up appointment with primary care provider scheduled prior to discharge.Will need a last dose letter for BAART upon discharge. PATIENT/FAMILY EDUCATION NEEDS:: Discharge education, limitations, follow-up plan of care, and ask me 3 education. Education related to substance abuse and support services. ANTICIPATED BARRIERS TO DISCHARGE:: No anticipated barriers identified at this time. TRANSPORTATION:: Via [facility] at time of discharge. PLAN:: Jose is currently receiving IV fluids, pain management, antiemetics, and benzodiazepines for withdrawal. He continues to be monitored for alcohol withdrawal, and transferred to the ICU for acute detox. CM will continue to provide support to patient, care team, discharge planning.
--- NOTE | 2018-07-08 19:30 | W.PM.PROGNOT ---
Date of Service Date of service: 07/08/18 Time of Service: 13:00 Assessment and Plan (1) Acute pancreatitis: Current visit: Yes Status: Acute No evidence of choledocholithiasis. Keep in NPO status with aggressive IV hydration and serial abdominal exams. Consider surgical consult. (2) Delirium tremens: Current visit: Yes Status: Acute Transfer to ICU for closer monitoring on CIWA. Has a history of alcohol withdrawal seizures. Continue prn ativan. (3) High anion gap metabolic acidosis: Current visit: Yes Status: Acute Improving. Likely a combination of alcoholic and starvation ketoacidoses. Continue aggressive IVF and monitor. (4) Opiate addiction: Current visit: No Status: Chronic On buprenorphine and naloxone as well as dilaudid - will hold suboxone. (5) Alcohol abuse: Current visit: Yes Status: Chronic As above - continue CIWA, thiamine, banana bag (6) Chronic back pain: Current visit: No Status: Chronic Continue gabapentin (7) Anxiety, generalized: Current visit: No Status: Chronic continue gabapentin (8) Depression: Current visit: No Status: Chronic follow up as outpatient (9) Discharge planning issues: Current visit: Yes Status: Acute Full code Transferred to ICU (10) DVT prophylaxis: Current visit: Yes Status: Acute Not required in an ambulatory 33 year old patient. Subjective Interval history since last seen: Patient reports epigastric pain, nausea. Denies dizziness, chest pain, shortness of breath. He states he hadn't had a bowel movement or flatus in 3 days. Overnight and during the day, the patient reports episodes of having auditory hallucinations. Exam Narrative Exam Narrative: General: male, appears to be under influence of narcotic, in position in bed, in pain HEENT: EOMI, MMM Heart: RRR, tachycardic Lungs: CTAB, diminished breath sounds B GI: abdome is soft, + bowel sounds, tender in epigastrium Extremities: no edema, clubbing, or cyanosis of BLE's Objective Objective Clinical Data: Abnormal lab results 07/07/18 07/07/18 07/08/18 Range/Units 21:40 21:40 02:25 WBC 15.82 H (4.4-10.8) k/cumm MCV 96.4 H (80-95) fL MCH 33.8 H (27.0-33.0) pg Absolute Neutrophils 13.16 H (1.2-6.7) k/cumm Absolute Lymphocytes (1.2-3.4) k/cumm Absolute Monocytes 1.19 H (0.11-0.7) k/cumm VBG pCO2 (34-47) mm/Hg VBG pO2 (28-44) mm/Hg VBG HCO3 (22-28) mmol/L VBG Total CO2 (22-29) mmol/L VBG O2 Saturation (70-80) % VBG Base Excess (-3-3) mmol/L Carbon Dioxide 15.0 L 16.1 L (21.0-32.0) mmol/L Anion Gap 23.0 H 18.9 H (3-11) mmol/L Creatinine (0.70-1.30) mg/dL Glucose 105 H (70-100) mg/dL Total Bilirubin 1.1 H (0.2-1.0) mg/dL Conjugated Bilirubin 0.26 H (0.00-0.20) mg/dL AST 56 H (15-37) U/L Total Protein 8.5 H (6.4-8.2) g/dL Lipase 7127 H (73-393) U/L Ur Specific [place] (1.005-1.025) Urine Protein (Negative) mg/dL Urine Ketones (Negative) mg/dL Urine Bilirubin (Negative) 07/08/18 07/08/18 07/08/18 Range/Units 02:25 07:35 07:35 WBC 14.24 H (4.4-10.8) k/cumm MCV 97.1 H (80-95) fL MCH 33.6 H (27.0-33.0) pg Absolute Neutrophils 11.78 H (1.2-6.7) k/cumm Absolute Lymphocytes 1.04 L (1.2-3.4) k/cumm Absolute Monocytes 1.28 H (0.11-0.7) k/cumm VBG pCO2 30 L (34-47) mm/Hg VBG pO2 49 H (28-44) mm/Hg VBG HCO3 16 L (22-28) mmol/L VBG Total CO2 14 L (22-29) mmol/L VBG O2 Saturation 87 H (70-80) % VBG Base Excess -10.4 L (-3-3) mmol/L Carbon Dioxide 16.9 L (21.0-32.0) mmol/L Anion Gap 17.1 H (3-11) mmol/L Creatinine 0.68 L (0.70-1.30) mg/dL Glucose 105 H (70-100) mg/dL Total Bilirubin (0.2-1.0) mg/dL Conjugated Bilirubin (0.00-0.20) mg/dL AST 40 H (15-37) U/L Total Protein (6.4-8.2) g/dL Lipase 2143 H (73-393) U/L Ur Specific [place] (1.005-1.025) Urine Protein (Negative) mg/dL Urine Ketones (Negative) mg/dL Urine Bilirubin (Negative) 07/08/18 Range/Units 10:30 WBC (4.4-10.8) k/cumm MCV (80-95) fL MCH (27.0-33.0) pg Absolute Neutrophils (1.2-6.7) k/cumm Absolute Lymphocytes (1.2-3.4) k/cumm Absolute Monocytes (0.11-0.7) k/cumm VBG pCO2 (34-47) mm/Hg VBG pO2 (28-44) mm/Hg VBG HCO3 (22-28) mmol/L VBG Total CO2 (22-29) mmol/L VBG O2 Saturation (70-80) % VBG Base Excess (-3-3) mmol/L Carbon Dioxide (21.0-32.0) mmol/L Anion Gap (3-11) mmol/L Creatinine (0.70-1.30) mg/dL Glucose (70-100) mg/dL Total Bilirubin (0.2-1.0) mg/dL Conjugated Bilirubin (0.00-0.20) mg/dL AST (15-37) U/L Total Protein (6.4-8.2) g/dL Lipase (73-393) U/L Ur Specific [place] >= 1.030 H (1.005-1.025) Urine Protein 30 H (Negative) mg/dL Urine Ketones >=160 H (Negative) mg/dL Urine Bilirubin Small H (Negative) Vital Signs Temperature 37.5 C 07/08/18 16:11 Temperature Source Tympanic 07/08/18 16:11 Pulse 58 L 07/08/18 16:11 Pulse Rhythm Regular 07/08/18 14:50 Respiratory Rate 18 07/08/18 16:11 Respiratory Effort 07/08/18 15:50 Respiratory Depth Normal 07/08/18 15:50 Respiratory Pattern Normal 07/08/18 15:50 Blood Pressure 160/92 H 07/08/18 16:11 Blood Pressure Mean 111 07/08/18 15:50 Blood Pressure Position Supine 07/08/18 15:50 Pulse Oximetry 98 07/08/18 16:11 Oxygen Delivery Method Room Air 07/08/18 16:11 Oxygen Flow Rate 0 07/08/18 16:11 Pain Level 7 07/08/18 15:50 Comment 07/08/18 13:28 Intake & Output 07/07/18 07/08/18 07/08/18 23:59 11:59 23:59 Intake Total 1000 / 2060 1060 / 2060 Output Total 200 / 800 600 / 800 Balance 800 / 1260 460 / 1260 Weight 65.771 kg 65.771 kg Intake: IV 1000 / 0 1060 / 2060 Output: Urine 200 / 800 600 / 800 Other: Urine Color Yellow Straw Urine Appearance Clear Clear Urine Odor Normal Voiding Methods Urinal Urinal Laboratory Results WBC 14.24 k/cumm (4.4-10.8) H 07/08/18 07:35 RBC 4.52 m/cumm (4.50-6.00) 07/08/18 07:35 Hgb 15.2 g/dL (13.5-17.5) 07/08/18 07:35 Hct 43.9 % (40.0-50.0) 07/08/18 07:35 MCV 97.1 fL (80-95) H 07/08/18 07:35 MCH 33.6 pg (27.0-33.0) H 07/08/18 07:35 MCHC 34.6 g/dL (32.0-36.0) 07/08/18 07:35 RDW 11.9 % (11.8-14.1) 07/08/18 07:35 Plt Count 193 x1000/uL (130-400) 07/08/18 07:35 MPV 10.3 fL (8.0-11.0) 07/08/18 07:35 Immature Gran % 0.3 07/08/18 07:35 Neutrophils % 82.7 07/08/18 07:35 Lymphocytes % 7.3 07/08/18 07:35 Monocytes % 9.0 07/08/18 07:35 Eosinophils % 0.6 07/08/18 07:35 Basophils % 0.1 07/08/18 07:35 Absolute Neutrophils 11.78 k/cumm (1.2-6.7) H 07/08/18 07:35 Absolute Lymphocytes 1.04 k/cumm (1.2-3.4) L 07/08/18 07:35 Absolute Monocytes 1.28 k/cumm (0.11-0.7) H 07/08/18 07:35 Absolute Eosinophils 0.09 k/cumm (0.0-0.7) 07/08/18 07:35 Absolute Basophils 0.01 k/cumm (0.0-0.2) 07/08/18 07:35 VBG pH 7.32 (7.32-7.43) 07/08/18 02:25 VBG pCO2 30 mm/Hg (34-47) L 07/08/18 02:25 VBG pO2 49 mm/Hg (28-44) H 07/08/18 02:25 VBG HCO3 16 mmol/L (22-28) L 07/08/18 02:25 VBG Total CO2 14 mmol/L (22-29) L 07/08/18 02:25 VBG O2 Saturation 87 % (70-80) H 07/08/18 02:25 VBG Base Excess -10.4 mmol/L (-3-3) L 07/08/18 02:25 Sodium 136 mmol/L (136-145) 07/08/18 07:35 Potassium 3.8 mmol/L (3.5-5.1) 07/08/18 07:35 Chloride 102 mmol/L (98-107) 07/08/18 07:35 Carbon Dioxide 16.9 mmol/L (21.0-32.0) L 07/08/18 07:35 Anion Gap 17.1 mmol/L (3-11) H 07/08/18 07:35 BUN 7 mg/dL (7-18) 07/08/18 07:35 Creatinine 0.68 mg/dL (0.70-1.30) L 07/08/18 07:35 Estimated GFR/1.73 m2 >= 60.00 (mL/min/1.73m2) 07/08/18 07:35 Glucose 105 mg/dL (70-100) H 07/08/18 07:35 Lactate 1.1 mmol/L (0.6-1.4) 07/08/18 02:25 Calcium 9.0 mg/dL (8.5-10.1) 07/08/18 07:35 Magnesium 1.9 mg/dL (1.8-2.4) 07/08/18 07:35 Total Bilirubin 0.9 mg/dL (0.2-1.0) 07/08/18 07:35 Conjugated Bilirubin 0.26 mg/dL (0.00-0.20) H 07/07/18 21:40 AST 40 U/L (15-37) H 07/08/18 07:35 ALT 51 U/L (12-78) 07/08/18 07:35 Alkaline Phosphatase 70 U/L (46-116) 07/08/18 07:35 Total Protein 7.2 g/dL (6.4-8.2) 07/08/18 07:35 Albumin 3.9 g/dL (3.4-5.0) 07/08/18 07:35 Lipase 2143 U/L (73-393) H 07/08/18 07:35 Urine Color Yellow (Yellow) 07/08/18 10:30 Urine Clarity Clear 07/08/18 10:30 Urine pH 6.0 (5-8) 07/08/18 10:30 Ur Specific [place] >= 1.030 (1.005-1.025) H 07/08/18 10:30 Urine Protein 30 mg/dL (Negative) H 07/08/18 10:30 Urine Ketones >=160 mg/dL (Negative) H 07/08/18 10:30 Urine Blood Negative (Negative) 07/08/18 10:30 Urine Nitrite Negative (Negative) 07/08/18 10:30 Urine Bilirubin Small (Negative) H 07/08/18 10:30 Urine Urobilinogen 0.2 EU/dL (Up TO 0.2) 07/08/18 10:30 Ur Leukocyte Esterase Negative (Negative) 07/08/18 10:30 Urine RBC Negative (0-2) 07/08/18 10:30 Urine WBC 0-2 HPF (0-5) 07/08/18 10:30 Ur Epithelial Cells Rare HPF (Negative) 07/08/18 10:30 Urine Crystals Negative HPF (Negative) 07/08/18 10:30 Urine Bacteria Negative HPF (Negative) 07/08/18 10:30 Urine Casts Negative LPF (Negative) 07/08/18 10:30 Urine Mucus Negative (Negative) 07/08/18 10:30 Urine Other Few transitional (Negative) 07/08/18 10:30 Ur Culture Indicated? C&s done as ordered 07/08/18 10:30 Urine Glucose Negative mg/dL (Negative) 07/08/18 10:30 Urine Opiates Screen Positive (Negative) 07/08/18 00:30 Urine Methadone Screen Negative (Negative) 07/08/18 00:30 Ur Barbiturates Screen Negative (Negative) 07/08/18 00:30 Ur Tricyclics Screen Negative (Negative) 07/08/18 00:30 Ur Amphetamines Screen Negative (Negative) 07/08/18 00:30 U Benzodiazepines Scrn Negative (Negative) 07/08/18 00:30 Urine Cocaine Screen Negative (Negative) 07/08/18 00:30 Ur THC Screen Positive (Negative) 07/08/18 00:30 Ethyl Alcohol < 3.0 mg/dL (<3) 07/07/18 21:40 HIV 1&2 Antibody Rapid Negative (Negative) 07/08/18 07:35 US abdomen: A small amount of fluid is seen around the pancreas and near the lower pole of the right kidney. No biliary dilatation, gallstones or common duct stones are seen. MRCP: Increased ascites. No evidence of biliary dilatation, gallstones or common duct stones. There is stable mild dilatation of the pancreatic duct
[2018-07-09] VITALS (66 sets, daily range): BP systolic 120–155; BP diastolic 79–126; PULSE 57–113; RESP 8–25; TEMP 36.2–36.8; O2SAT 92–100
[2018-07-09] MEDS: Lactated Ringers 1,000 ML 250 ML IV ×3 (00:38→08:37)
[2018-07-09 07:12] LABS: Abs Immature Grans 0.01 k/cumm (0.0-0.09); Absolute Basophil Count 0.02 k/cumm (0.0-0.2); Absolute Eosinophil Count 0.17 k/cumm (0.0-0.7); Absolute Lymphocyte Count 1.98 k/cumm (1.2-3.4); Absolute Monocyte Count 1.04 k/cumm (0.11-0.7); Absolute Neutrophil Count 6.48 k/cumm (1.2-6.7); Basophils % 0.2; Eosinophils % 1.8; HCT 41.1 % (40.0-50.0); HGB 14.4 g/dL (13.5-17.5); Immature Grans % 0.1; Lymphocytes % 20.4; Mean Corpuscular Hemoglobin 33.7 pg (27.0-33.0); Mean Corpuscular Volume 96.3 fL (80-95); Mean Platelet Volume 9.9 fL (8.0-11.0); Monocytes % 10.7; Neutrophils % 66.8; Platelet Count 184 x1000/uL (130-400); RBC 4.27 m/cumm (4.50-6.00); RBC Distribution Width 11.6 % (11.8-14.1)
[2018-07-09 07:30] LABS: ALT 36 U/L (12-78); AST 28 U/L (15-37); Albumin 3.3 g/dL (3.4-5.0); Alkaline Phosphatase 62 U/L (46-116); Anion Gap 10.3 mmol/L (3-11); BUN 6 mg/dL (7-18); Bilirubin, Direct 0.19 mg/dL (0.00-0.20); Bilirubin, Total 0.8 mg/dL (0.2-1.0); CO2 25.7 mmol/L (21.0-32.0); CREATININE 0.76 mg/dL (0.70-1.30); Calcium 8.9 mg/dL (8.5-10.1); Chloride 102 mmol/L (98-107); Glucose 89 mg/dL (70-100); Magnesium 1.6 mg/dL (1.8-2.4); Potassium 3.3 mmol/L (3.5-5.1); Sodium 138 mmol/L (136-145); Total Protein 6.5 g/dL (6.4-8.2)
--- NOTE | 2018-07-09 07:39 | PDOC.CMPRO ---
Care Management Progress Note S/O: Jose was sitting up in bed, his significant other at his bedside when CM met with him; he shared no concerns at this time. Jose was transferred to the ICU and ICU level of care for closer monitoring on CIWA, he continues aggressive IV hydration and will be kept NPO per MD. CM will continue to follow. A: 33 year old male with Opiate and Alcohol addiction, chronic back pain, anxiety and depression as well as hx of alcohol withdrawal seizures-admitted to [facility] with Acute Pancreatitis P: Jose is currently receiving IV fluids, pain management, antiemetics, and benzodiazepines for withdrawal. He continues to be monitored for alcohol withdrawal, and transferred to the ICU for acute detox. CM will continue to provide support to patient, care team, discharge planning.
--- NOTE | 2018-07-09 07:42 | CMPROGNOTE_ITS ---
Care Management Progress Note S/O: Jose was sitting up in bed, his significant other at his bedside when CM met with him; he shared no concerns at this time. Jose was transferred to the ICU and ICU level of care for closer monitoring on CIWA, he continues aggressive IV hydration and will be kept NPO per MD. CM will continue to follow. A: 33 year old male with Opiate and Alcohol addiction, chronic back pain, anxiety and depression as well as hx of alcohol withdrawal seizures-admitted to [facility] with Acute Pancreatitis P: Jose is currently receiving IV fluids, pain management, antiemetics, and benzodiazepines for withdrawal. He continues to be monitored for alcohol withdrawal, and transferred to the ICU for acute detox. CM will continue to prov lissa support to patient, care team, discharge planning.
[2018-07-09] MEDS: Potassium Chloride 20 MEQ TABCR 40 MEQ PO (08:37)
[2018-07-09] MEDS: Gabapentin 600 MG TAB PO ×3 (08:37→20:36)
[2018-07-09] MEDS: MAGNESIUM SULFATE 2 GM/50 ML BAG IVPB (08:37)
[2018-07-09] MEDS: Nicotine 14 MG/24 HR PATCH TD (09:58)
[2018-07-09] MEDS: Buprenorphine/Naloxone 8 mg/2 mg FILM 1 EACH SL (10:24)
[2018-07-09 11:08] LABS: Lipase 499 U/L (73-393)
[2018-07-09] MEDS: Oxazepam 10 MG CAP PO (11:27)
--- NOTE | 2018-07-09 14:43 | NUR.NOTE ---
Patient removed all monitoring equipment stating that the doctor said he was not detoxingso he doesn't need to be held prisoner. Dr. Nelson made aware. Shortly there after patient walked out of room with IV pole asking where the waiting room was and left the unit. Superviser made aware. Dr. Nelson in to speak with patient.Nursing Note:
--- NOTE | 2018-07-09 15:03 | PGE_ITS ---
Date of Service Date of service: 07/09/18 Time of Service: 14:58 Assessment and Plan (1) Acute pancreatitis: Current visit: Yes Status: Acute No evidence of gallstones, and MRCP negative. May be on basis of prior history of ETOH abuse, with recent binge type drinking during the holidays, in patient with prior history of recurrent pancreatitis. Triglycerides were not checked, but previously normal. Was kept NPO with IVFs and pain control. Doing well, with lipase nearly normalized this morning. Reinitiate diet with clears and advance to full if tolerated. Adjust IVFs and pain control. Patient improved overall. (2) Alcohol abuse: Current visit: Yes Status: Chronic Recent drinking behavior during the holidays, with prior elevated daily use. Currently reports that he does not drink on a daily basis, and last drank over 10 days ago. Showing no signs of withdrawl. (3) High anion gap metabolic acidosis: Current visit: Yes Status: Acute Resolved. (4) Opiate addiction: Current visit: No Status: Chronic D/C Dilaudid as abdominal pain is essentially resolved, and restart Suboxone at home doses. (5) DVT prophylaxis: Current visit: Yes Status: Acute SCDs when in bed. Subjective Interval history since last seen: 33-year-old man with a history of alcohol abuse admitted from [facility] Emergency Department on 07/07 with a diagnosis of Acute Pancreatitis. Mr. Burns has a history of ETOH and heroin/narcotics abuse currently on a Suboxone maintenance program through [facility]. He states that during his time he drank upwards of 1-2 bottles of Vodka daily, most recently not been drinking but had lapsed through the holidays. He specifically states that the last time he drank was on Radha. He also reports a prior history of recurrent pancreatitis, first diagnosed in 2014. He presented early on the morning of admission to the ED with complaints of nausea and vomiting, diagnosed with acute pancreatitis with an elevated lipase and CT scan showing peripancreatic fluid with mild dilatation of the pancreatic duct - no evidence for pseudocyst nor evidence of gallstones were seen however. As he was able to tolerate fluids he was discharged, but returned shortly after with worsening abdominal pain - repeat lipase was markedly higher, and the patient had developed a leukocytosis and an elevated anion gap. At that time he was referred for admission for further evaluation and treatment. Since admission Mr. Burns has been moved to the ICU, maintained NPO and on IVFs, and on CIWA protocol. This morning he reports vast improvement in his symptoms. No overnight events reported. Afebrile. Exam Narrative Exam Narrative: General: Patient appears comfortable, AAOX3, NAD Neck: Supple CV: Regular, nontachycardic, S1S2, No rubs, murmurs, or gallops. Pulmonary: Clear to auscultation bilaterally, no crackles, wheezing, or rhonchi Abdomen: + Bowel Sounds, soft, Minimally tender in the epigastric region, nondistended Vascular: No lower extremity edema Psych: Normal mood and affect. Objective Objective Clinical Data: Abnormal lab results 07/09/18 07/09/18 Range/Units 06:35 06:35 RBC 4.27 L (4.50-6.00) m/cumm MCV 96.3 H (80-95) fL MCH 33.7 H (27.0-33.0) pg RDW 11.6 L (11.8-14.1) % Absolute Monocytes 1.04 H (0.11-0.7) k/cumm Potassium 3.3 L (3.5-5.1) mmol/L BUN 6 L (7-18) mg/dL Magnesium 1.6 L (1.8-2.4) mg/dL Albumin 3.3 L (3.4-5.0) g/dL Lipase 499 H (73-393) U/L Vital Signs Temperature 36.2 C L 07/09/18 10:52 Temperature Source Tympanic 07/09/18 10:52 Pulse 63 07/09/18 14:01 Pulse Rhythm Regular 07/08/18 14:50 Pulse 66 07/09/18 14:20 Respiratory Rate 15 07/09/18 14:20 Respiratory Effort 07/09/18 10:52 Respiratory Depth Normal 07/09/18 10:52 Respiratory Pattern Normal 07/09/18 10:52 Blood Pressure 130/83 07/09/18 14:01 Blood Pressure Mean 93 07/09/18 14:01 Blood Pressure Position Sitting 07/09/18 10:52 Pulse Oximetry 100 07/09/18 14:20 Oxygen Delivery Method Room Air 07/09/18 10:52 Oxygen Flow Rate 0 07/09/18 10:52 Pain Level 2 07/08/18 19:59 Comment 07/08/18 13:28 Intake & Output 07/08/18 07/09/18 07/09/18 23:59 11:59 23:59 Intake Total 2060 / 3060 2945.834 / 2945.834 Output Total 1200 / 1400 2200 / 2800 600 / 2800 Balance 860 / 1660 745.834 / 145.834 -600 / 145.834 Weight 65.771 kg Intake: IV 2060 / 3060 2945.834 / 2945.834 Output: Urine 1200 / 1400 2200 / 2800 600 / 2800 Other: Urine Color Yellow Yellow Urine Appearance Clear Clear Clear Urine Odor None Normal Comment has voided 600cc's so far this shift with dipstick negative except for ketones Voiding Methods Urinal Urinal Urinal Laboratory Results WBC 9.70 k/cumm (4.4-10.8) D 07/09/18 06:35 RBC 4.27 m/cumm (4.50-6.00) L 07/09/18 06:35 Hgb 14.4 g/dL (13.5-17.5) 07/09/18 06:35 Hct 41.1 % (40.0-50.0) 07/09/18 06:35 MCV 96.3 fL (80-95) H 07/09/18 06:35 MCH 33.7 pg (27.0-33.0) H 07/09/18 06:35 MCHC 35.0 g/dL (32.0-36.0) 07/09/18 06:35 RDW 11.6 % (11.8-14.1) L 07/09/18 06:35 Plt Count 184 x1000/uL (130-400) 07/09/18 06:35 MPV 9.9 fL (8.0-11.0) 07/09/18 06:35 Immature Gran % 0.1 07/09/18 06:35 Neutrophils % 66.8 07/09/18 06:35 Lymphocytes % 20.4 07/09/18 06:35 Monocytes % 10.7 07/09/18 06:35 Eosinophils % 1.8 07/09/18 06:35 Basophils % 0.2 07/09/18 06:35 Absolute Neutrophils 6.48 k/cumm (1.2-6.7) 07/09/18 06:35 Absolute Lymphocytes 1.98 k/cumm (1.2-3.4) 07/09/18 06:35 Absolute Monocytes 1.04 k/cumm (0.11-0.7) H 07/09/18 06:35 Absolute Eosinophils 0.17 k/cumm (0.0-0.7) 07/09/18 06:35 Absolute Basophils 0.02 k/cumm (0.0-0.2) 07/09/18 06:35 VBG pH 7.32 (7.32-7.43) 07/08/18 02:25 VBG pCO2 30 mm/Hg (34-47) L 07/08/18 02:25 VBG pO2 49 mm/Hg (28-44) H 07/08/18 02:25 VBG HCO3 16 mmol/L (22-28) L 07/08/18 02:25 VBG Total CO2 14 mmol/L (22-29) L 07/08/18 02:25 VBG O2 Saturation 87 % (70-80) H 07/08/18 02:25 VBG Base Excess -10.4 mmol/L (-3-3) L 07/08/18 02:25 Sodium 138 mmol/L (136-145) 07/09/18 06:35 Potassium 3.3 mmol/L (3.5-5.1) L 07/09/18 06:35 Chloride 102 mmol/L (98-107) 07/09/18 06:35 Carbon Dioxide 25.7 mmol/L (21.0-32.0) 07/09/18 06:35 Anion Gap 10.3 mmol/L (3-11) 07/09/18 06:35 BUN 6 mg/dL (7-18) L 07/09/18 06:35 Creatinine 0.76 mg/dL (0.70-1.30) 07/09/18 06:35 Estimated GFR/1.73 m2 >= 60.00 (mL/min/1.73m2) 07/09/18 06:35 Glucose 89 mg/dL (70-100) 07/09/18 06:35 Lactate 1.1 mmol/L (0.6-1.4) 07/08/18 02:25 Calcium 8.9 mg/dL (8.5-10.1) 07/09/18 06:35 Magnesium 1.6 mg/dL (1.8-2.4) L 07/09/18 06:35 Total Bilirubin 0.8 mg/dL (0.2-1.0) 07/09/18 06:35 Conjugated Bilirubin 0.19 mg/dL (0.00-0.20) 07/09/18 06:35 AST 28 U/L (15-37) 07/09/18 06:35 ALT 36 U/L (12-78) 07/09/18 06:35 Alkaline Phosphatase 62 U/L (46-116) 07/09/18 06:35 Total Protein 6.5 g/dL (6.4-8.2) 07/09/18 06:35 Albumin 3.3 g/dL (3.4-5.0) L 07/09/18 06:35 Lipase 499 U/L (73-393) H 07/09/18 06:35 Urine Color Yellow (Yellow) 07/08/18 10:30 Urine Clarity Clear 07/08/18 10:30 Urine pH 6.0 (5-8) 07/08/18 10:30 Ur Specific [place] >= 1.030 (1.005-1.025) H 07/08/18 10:30 Urine Protein 30 mg/dL (Negative) H 07/08/18 10:30 Urine Ketones >=160 mg/dL (Negative) H 07/08/18 10:30 Urine Blood Negative (Negative) 07/08/18 10:30 Urine Nitrite Negative (Negative) 07/08/18 10:30 Urine Bilirubin Small (Negative) H 07/08/18 10:30 Urine Urobilinogen 0.2 EU/dL (Up TO 0.2) 07/08/18 10:30 Ur Leukocyte Esterase Negative (Negative) 07/08/18 10:30 Urine RBC Negative (0-2) 07/08/18 10:30 Urine WBC 0-2 HPF (0-5) 07/08/18 10:30 Ur Epithelial Cells Rare HPF (Negative) 07/08/18 10:30 Urine Crystals Negative HPF (Negative) 07/08/18 10:30 Urine Bacteria Negative HPF (Negative) 07/08/18 10:30 Urine Casts Negative LPF (Negative) 07/08/18 10:30 Urine Mucus Negative (Negative) 07/08/18 10:30 Urine Other Few transitional (Negative) 07/08/18 10:30 Ur Culture Indicated? C&s done as ordered 07/08/18 10:30 Urine Glucose Negative mg/dL (Negative) 07/08/18 10:30 Urine Opiates Screen Positive (Negative) 07/08/18 00:30 Urine Methadone Screen Negative (Negative) 07/08/18 00:30 Ur Barbiturates Screen Negative (Negative) 07/08/18 00:30 Ur Tricyclics Screen Negative (Negative) 07/08/18 00:30 Ur Amphetamines Screen Negative (Negative) 07/08/18 00:30 U Benzodiazepines Scrn Negative (Negative) 07/08/18 00:30 Urine Cocaine Screen Negative (Negative) 07/08/18 00:30 Ur THC Screen Positive (Negative) 07/08/18 00:30 Ethyl Alcohol < 3.0 mg/dL (<3) 07/07/18 21:40 HIV 1&2 Antibody Rapid Negative (Negative) 07/08/18 07:35
[2018-07-09] MEDS: POTASSIUM CHLORIDE 20 MEQ, POTASSIUM CHLORIDE 10 MEQ 30 MEQ PO (16:02)
[2018-07-09] MEDS: Lactated Ringers 1,000 ML 75 ML IV (16:27)
--- NOTE | 2018-07-09 17:08 | NUR.NOTE ---
Visitor in room during VS and urinal emtying by nurse. Patient looked at monitor and stated to visitor, See? They got my blood pressure up... bastards. No outward behaviors manifesting aggression. Nursing Note:
[2018-07-09] MEDS: Acetaminophen 325 MG TAB PO (18:37)
[2018-07-10 04:08] VITALS: TEMP 36.5
[2018-07-10] MEDS: Lactated Ringers 1,000 ML 75 ML IV (06:39)
[2018-07-10] MEDS: Nicotine 14 MG/24 HR PATCH TD (06:47)
[2018-07-10 07:34] LABS: Abs Immature Grans 0.02 k/cumm (0.0-0.09); Absolute Basophil Count 0.04 k/cumm (0.0-0.2); Absolute Eosinophil Count 0.14 k/cumm (0.0-0.7); Absolute Lymphocyte Count 2.87 k/cumm (1.2-3.4); Absolute Monocyte Count 0.87 k/cumm (0.11-0.7); Absolute Neutrophil Count 4.27 k/cumm (1.2-6.7); Basophils % 0.5; Eosinophils % 1.7; HCT 48.8 % (40.0-50.0); Immature Grans % 0.2; Mean Corp. HGB Concentration 35.2 g/dL (32.0-36.0); Mean Corpuscular Hemoglobin 33.6 pg (27.0-33.0); Mean Corpuscular Volume 95.3 fL (80-95); Mean Platelet Volume 9.7 fL (8.0-11.0); Monocytes % 10.6; Platelet Count 180 x1000/uL (130-400); RBC 5.12 m/cumm (4.50-6.00); RBC Distribution Width 11.5 % (11.8-14.1); White Blood Cell Count 8.21 k/cumm (4.4-10.8)
[2018-07-10 07:37] LABS: HGB 17.2 g/dL (13.5-17.5)
[2018-07-10 07:42] LABS: Anion Gap 10.1 mmol/L (3-11); BUN 8 mg/dL (7-18); CO2 27.9 mmol/L (21.0-32.0); CREATININE 0.89 mg/dL (0.70-1.30); Calcium 9.9 mg/dL (8.5-10.1); Chloride 101 mmol/L (98-107); Glucose 102 mg/dL (70-100); Magnesium 2.1 mg/dL (1.8-2.4); Potassium 3.8 mmol/L (3.5-5.1); Sodium 139 mmol/L (136-145)
[2018-07-10] MEDS: Potassium Chloride 20 MEQ TABCR PO (08:37)
[2018-07-10] MEDS: Buprenorphine/Naloxone 8 mg/2 mg FILM 1 EACH SL (08:37)
[2018-07-10] MEDS: Gabapentin 600 MG TAB PO ×2 (08:37→13:30)
[2018-07-10 08:38] VITALS: BP 144/89; PULSE 70; TEMP 36.9; O2SAT 97
--- NOTE | 2018-07-10 09:51 | PDOC.CMDIS ---
LACE Index Scoring Tool - Questions: Length of Stay (in days): 3 Acuity (Admit via E.D.?): Yes E.D. Visits: 4 - Answers: Total Score: 10 Risk of Readmission: High Risk Care Management Discharge Reason for Hospitalization: Pancreatitis and ETOH withdrawal Discharge Plan: Jose will return home when ready per MD. He will follow up with [facility] (CM faxed last dose letter), his PCP and plan of care as prescribed. Jose was also provided resources for substance abuse cessation. CM reviewed follow up contact information as well. Jose will transport via private vehicle with a friend. Patient/Family Education Needs: Cessation, substance abuse treatment and service support information, discharge instructions, discussed Ask Me Three self care needs upon discharge. Services Needed at Discharge: Outpatient Therapy ([facility], Recovery supports)
[2018-07-10 12:37] VITALS: TEMP 37.1
[2018-07-10 12:49] VITALS: BP 140/89; PULSE 69; RESP 16; TEMP 37.1; O2SAT 96
--- NOTE | 2018-07-10 13:02 | W.PM.DS.N ---
Date of service: 07/10/18 Time of Service: 13:02 DS: Diagnosis Discharge Diagnosis (1) Acute pancreatitis: Status: Acute (2) Alcohol abuse: Status: Chronic (3) High anion gap metabolic acidosis: Status: Acute (4) Opiate addiction: Status: Chronic Discharge Plan Disposition Patient Disposition: HOME Condition: Stable Discharge Details Reason For Visit: ACUTE PANCREATITIS Admit Date/Time: 07/07/18 21:31 Admit Provider: Miko Lazcano Attending Provider: Miko Lazcano Primary Care Provider: Joel Martinez [facility] Course Hospital Course: CC: Abdominal Pain, Nausea HPI: 33-year-old man with a history of alcohol abuse and recurrent pancreatitis, admitted from [facility] Emergency Department on 07/07 with a diagnosis of Acute Pancreatitis. Mr. Burns has a history of ETOH and heroin/narcotics abuse currently on a Suboxone maintenance program through [email or web address]. He states that during his time he drank upwards of 1-2 bottles of Vodka daily, most recently not been drinking but had lapsed through the holidays. He specifically states that the last time he drank was on [employer] Radha. He also reports a prior history of recurrent pancreatitis, first diagnosed in 2014. He presented early on the morning of admission to the ED with complaints of nausea and vomiting, diagnosed with acute pancreatitis with an elevated lipase and CT scan showing peripancreatic fluid with mild dilatation of the pancreatic duct - no evidence for pseudocyst nor evidence of gallstones were seen however. As he was able to tolerate fluids he was discharged, but returned shortly after with worsening abdominal pain - repeat lipase was markedly higher, and the patient had developed a leukocytosis and an elevated anion gap. At that time he was referred for admission for further evaluation and treatment. Since admission Mr. Burns was moved to the ICU, maintained NPO and on IVFs, and on a CIWA protocol. His initial symptoms of sweating, tachycardia, and slightly altered mental status may have been secondary to acute pancreatitis, as the patient has been clear and without any withdrawl symptoms over the last 48 hours. This morning he reports essential resolution of his abdominal pain, and has tolerated advancement in his diet without any recurrence of symptoms. No overnight events reported. He remains Afebrile. Hospital Course: (1) Acute pancreatitis: No evidence of gallstones, and MRCP negative. May be on basis of prior history of ETOH abuse, with recent binge type drinking during the holidays, in patient with prior history of recurrent pancreatitis. Triglycerides were not checked, but previously normal. Was kept NPO with IVFs and pain control, with diet advanced slowly over the last 24 hours. Doing well, with lipase nearly normalized yesterday morning, and currently asymptomatic with pain and nausea essentially resolved. Recommend patient advance diet slowly, and avoid alcohol entirely. (2) Alcohol abuse: Recent drinking behavior during the holidays, with prior elevated daily use. Currently reports that he does not drink on a daily basis, and last drank over 10 days prior to admission. Showing no signs of withdrawl currently, asymptomatic over the course of last 2 days. (3) High anion gap metabolic acidosis: Resolved. (4) Opiate addiction: Initially maintained on Dilaudid, discontinued yesterday as abdominal pain was essentially resolved, and restarted Suboxone at home doses. Home Meds and New Rx's Prescriptions: Continued gabapentin 600 MG tablet 600 mg PO TID Qty: 270 RF: 4 Suboxone 1 EACH film 8 mg Sublingual DAILY RF: 0 magnesium oxide 400 MG tablet 800 mg PO DAILY RF: 0 methocarbamol 500 MG tablet 500 mg PO Q 8 pm Qty: 30 RF: 3 acetaminophen [Mapap Extra Strength] 500 MG tablet 1,000 mg PO Q8H Qty: 60 RF: 2 ibuprofen 800 MG tablet 800 mg PO Q8H PRN PRNQty: 60 RF: 3 ondansetron HCl [Zofran] 4 mg tablet 4 mg PO QID PRN (Reason: nausea and vomiting) Qty: 20 RF: 0 Discharge Instructions Instructions: Pancreatitis (DC), Pancreatitis (GEN) Additional Instructions: Please see your PCP within 2 weeks of discharge. Activity:: No strenuous activity Equipment/Supplies:: No Equipment Needed Diet:: GI Diet - slowly advance Discharge Orders Discharge Orders: Discharge Order (Routine); Ordered 07/10/18 Ordered By: Shahab Nelson Exam Narrative Exam Narrative: General: Patient appears comfortable, AAOX3, NAD Neck: Supple CV: Regular, nontachycardic, S1S2, No rubs, murmurs, or gallops. Pulmonary: Clear to auscultation bilaterally, no crackles, wheezing, or rhonchi Abdomen: + Bowel Sounds, soft, Minimally tender in the epigastric region, nondistended Vascular: No lower extremity edema Psych: Normal mood and affect. DS: Data Vitals/I&O Vitals and I&O: Vital Signs Temperature 37.1 C 07/10/18 12:49 Temperature Source Temporal Artery Scan 07/10/18 12:49 Pulse 69 07/10/18 12:49 Pulse Rhythm Regular 07/08/18 14:50 Pulse 66 07/09/18 14:20 Respiratory Rate 16 07/10/18 12:49 Respiratory Effort Non-Labored 07/10/18 12:37 Respiratory Depth Normal 07/10/18 12:37 Respiratory Pattern Normal 07/10/18 12:37 Blood Pressure 140/89 07/10/18 12:49 Blood Pressure Mean 107 07/10/18 08:38 Blood Pressure Position Sitting 07/10/18 12:37 Pulse Oximetry 96 07/10/18 12:49 Oxygen Delivery Method Room Air 07/10/18 12:49 Oxygen Flow Rate 0 07/10/18 12:49 Pain Level 0 07/10/18 12:37 Comment 07/08/18 13:28 Intake & Output 07/09/18 07/10/18 07/10/18 23:59 11:59 23:59 Intake Total 3271.2 / 6217.034 1165 / 1165 Output Total 2525 / 4725 1000 / 1000 Balance 746.2 / 1492.034 165 / 165 Intake: IV 2010.2 / 4957.034 1165 / 1165 Oral 1260 / 1260 Output: Urine 2525 / 4725 1000 / 1000 Other: Urine Color Yellow Yellow Urine Appearance Cloudy Cloudy Urine Odor Normal Normal Voiding Methods Urinal Urinal Completed studies during hospitalization [Text1]: Exam(s) 07/07/[address]:CT chest/abd/pel w SYMPTOMS/DIAGNOSIS: WRETCHING 1 MONTH, CHRONIC PANCREATITIS, SEVERE PAIN, ? GASTRIC PERFORATION, ACUTE ABD PROCESS CT OF THE CHEST: The heart size is normal. No pleural or pericardial effusions are seen. There is mild respiratory motion. The lungs appear clear. IMPRESSION: Negative chest CT. CT OF THE ABDOMEN AND PELVIS: There is patchy fatty infiltration of the liver. The gallbladder is unremarkable. No biliary dilatation is seen. The spleen is normal in size. There is some fluid around the pancreas and mild dilatation of the pancreatic duct. No focal mass is seen. There is no drainable pseudocyst. The appendix appears normal. Stool is noted throughout the colon. There are no inflammatory changes or bowel dilatation. The bladder and prostate are unremarkable. The kidneys also appear normal. IMPRESSION: Fluid is seen around the pancreas. There is no focal drainable pseudocyst. There is pancreatic ductal dilatation but no biliary dilatation or evidence of calcified gallstones. Exam(s) 07/08/2018 a US:US abdomen SYMPTOMS/DIAGNOSIS: PANCREATITIS ABDOMEN ULTRASOUND: Comparison is made with CT dated . The liver is again noted to show fatty infiltration. The gallbladder has a normal appearance. No stones, wall thickening or biliary dilatation is seen. A small amount of fluid is seen around the tail of the pancreas. There is a trace amount of fluid near the inferior pole of the right kidney. The spleen is normal in size. IMPRESSION: A small amount of fluid is seen around the pancreas and near the lower pole of the right kidney. No biliary dilatation, gallstones or common duct stones are seen. Exam(s) 07/08/2018 a MRI:MR abdsam wo SYMPTOMS/DIAGNOSIS: ACUTE PANCREATITIS, ? CHOLEDOCHOLITHIASIS, MRCP MRI OF THE ABDOMEN AND MRCP: Comparison is made with abdominal and pelvic CT dated June,. The exam is limited by patient motion. No biliary dilatation was demonstrated on the ultrasound or previous CT. No biliary dilatation is demonstrated on the current exam. No gallstones or common bile duct stones are seen. There is no abnormal gallbladder wall thickening. The common bile duct is normal in diameter. There is mild dilatation of the pancreatic duct, unchanged. No pancreatic mass is visible. Ascites is present, which appears to have increased when compared with the previous CT. The liver shows fatty infiltration. The kidneys, spleen and adrenals are unremarkable. IMPRESSION: Increased ascites. No evidence of biliary dilatation, gallstones or common duct stones. There is stable mild dilatation of the pancreatic duct. Labs on day of discharge: Labs from last 24 hours 07/10/18 07/10/18 07:20 07:20 WBC 8.21 RBC 5.12 Hgb 17.2 D Hct 48.8 MCV 95.3 H MCH 33.6 H MCHC 35.2 RDW 11.5 L Plt Count 180 MPV 9.7 Immature Gran % 0.2 Neutrophils % 52.0 Lymphocytes % 35.0 Monocytes % 10.6 Eosinophils % 1.7 Basophils % 0.5 Absolute Neutrophils 4.27 Absolute Lymphocytes 2.87 Absolute Monocytes 0.87 H Absolute Eosinophils 0.14 Absolute Basophils 0.04 Sodium 139 Potassium 3.8 Chloride 101 Carbon Dioxide 27.9 Anion Gap 10.1 BUN 8 Creatinine 0.89 Estimated GFR/1.73 m2 >= 60.00 Glucose 102 H Calcium 9.9 Magnesium 2.1 Additional Comments Urine Culture Final 07/10/18 Day 1 Result NO GROWTH 24 HOURS Day 2 Result NO GROWTH 48 HOURS [facility] Medical History Acute pancreatitis (Acute) Opiate addiction (Chronic) Alcohol abuse (Chronic) Heroin abuse (Chronic) Chronic back pain (Chronic) Depression (Chronic) Anxiety, generalized (Chronic) Family History Mother Heart disease Asthma Father No problems noted. Sister Asthma Sister No problems noted. Brother No problems noted. Grandfather Essential hypertension Heart disease Asthma Grandfather Essential hypertension Heart disease Grandmother No problems noted. Grandmother No problems noted. Son No problems noted. Daughter No problems noted. Daughter Asthma Social History Smoking/Tobacco Use Status: Current every day
[2018-07-11 11:35] LABS: Hepatitis A Antibody IgM Negative (NEGAT); Hepatitis B Core Antibody Negative (NEGAT); Hepatitis B surface Ag Negative (NEGAT); Hepatitis C Ab w Rflx HCV PCR Negative (NEGAT)
[2018-07-11 11:36] LABS: HIV-1/2 Ag & Ab Screen Negative (NEGAT)
== END 2018-07-10 14:45 | disposition home or self-care (01) | DRG 439 ==
LOC: ER 22:18 → MS 07-08 08:35 → ICU 07-08 19:04
PROVIDERS: Internal Medicine; Admitting Provider Internal Medicine; Emergency Provider Emergency Medicine; PCP Family Medicine; Visit Provider Internal Medicine
DX: K85.90 Acute pancreatitis without necrosis or infection, unspecified (principal); F10.121 Alcohol abuse with intoxication delirium; E87.2 Acidosis; K86.1 Other chronic pancreatitis; E86.0 Dehydration; M54.5 Low back pain; G89.29 Other chronic pain; F41.8 Other specified anxiety disorders; F17.210 Nicotine dependence, cigarettes, uncomplicated; F11.21 Opioid dependence, in remission
CPT/HCPCS: 36415; 80048; 80053; 80076; 80307; 82805; 83690; 86704; 86709; 86803; 87340; 87389; 96361; 96374; 96375; 96376; 99223; 99232; 99239; 99285; 99291; 74181; 76700; 80320; 81003; 81015; 83605; 83735; 85025; 87086; 99284; G0378; J2405; J3490

== ENCOUNTER 2018-09-19 15:00 | Emergency (ER) | payer MEDICAID, SELFPAY ==
[2018-09-19 15:03] VITALS: BP 132/72; PULSE 57; RESP 20; TEMP 37.3; O2SAT 98
--- NOTE | 2018-09-19 15:18 | W.ED.GENAD ---
Discharge Plan Disposition Patient Disposition: HOME Condition: Stable Discharge Details Chief Complaint: Cellulitis Clinical Impression: Cellulitis of arm, right Primary Care Provider: Joel Martinez ED Provider: Alex Avendaño Home Meds and New Rx's Prescriptions: New sulfamethoxazole-trimethoprim [Bactrim DS] 800-160 mg tablet 1 tab PO BID Qty: 10 RF: 0 cephalexin 500 mg capsule 500 mg PO TID 5 Days Qty: 15 RF: 0 No Action Creon 24,000-76,000 -120,000 unit capsule,delayed release(DR/EC) 1 cap PO TID Qty: 90 RF: 3 ketoconazole 2 % cream 1 applic TP DAILY Qty: 30 RF: 0 gabapentin 600 MG tablet 600 mg PO TID Qty: 270 RF: 4 buprenorphine-naloxone [Suboxone] 1 EACH film 8 mg Sublingual DAILY RF: 0 magnesium oxide 400 MG tablet 800 mg PO DAILY RF: 0 methocarbamol 500 MG tablet 500 mg PO Q 8 pm Qty: 30 RF: 3 acetaminophen [Mapap Extra Strength] 500 MG tablet 1,000 mg PO Q8H Qty: 60 RF: 2 ibuprofen 800 MG tablet 800 mg PO Q8H PRN PRNQty: 60 RF: 3 ondansetron HCl [Zofran] 4 mg tablet 4 mg PO QID PRN (Reason: nausea and vomiting) Qty: 20 RF: 0 Discharge Instructions Instructions: Cellulitis (ED) Additional Instructions: You are being treated for a skin infection if not better in a week see your primary care provider if you feel the rash is becoming worse, you start to have high fevers or feel more ill return to the emergency department for reevaluation Medical Decision Making 33 yo male with hx of prior opiate abuse on suboxone who denies recent use of drugs, who comes in with complaint of rash in the right arm in the ac fossa area. States he woke up with it and denies any trauma. Denies any recent needle sticks. HE has a small 5mm area that appears to be an area that either an insect bit or a needle keven. He has no swelling and has full rom of the elbow. He has around this about 5cm of brown and erythema without crepitus and has mild warmth. there is no fluctuance. There is no drainable pocket of fluid on bedside u/s but the skin does have appearance of cellulitis. Given lack of trauma and the u/s findings will tx as possible cellulitis. No crepitus or fevers and appears well systemically so doubt nec fasc at this time. ADvised f/u with pcp and return precautions given. No murmurs or other stigmata of endocarditis so doubt this at this time Differential Diagnosis cellulitis, contusion HPI General Mode of arrival: ambulatory. Date/Time Provider Initiated Documentation: 09/19/18 15:06. Limitations to Documentation: no limitations. Information obtained by: patient. History of Present Illness 33 year old M presents to the emergency department with the chief complaint of right arm rash, described as moderate, and is localized to the right and upper extremity. Patient reports no radiation. Patient started experiencing this day(s) (1) and it has been constant. No relieving factors improve symptom(s), No exacerbating factors reported . Patient notes no other symptoms.. Patient did receive the following treatments prior to arrival, none Related Data Home Medications Medication Instructions Recorded Confirmed buprenorphine-naloxone [Suboxone] 8 mg SUBLINGUAL DAILY film 10/11/17 09/19/18 gabapentin 600 mg PO TID #270 tab-cap 10/11/17 09/19/18 magnesium oxide 800 mg PO DAILY 11/18/17 09/19/18 acetaminophen [Mapap Extra 1,000 mg PO Q8H #60 tab 12/11/17 09/19/18 Strength] ibuprofen 800 mg PO Q8H PRN PRN #60 tab 12/11/17 09/19/18 methocarbamol 500 mg PO Q 8 pm #30 tab-cap 12/16/17 09/19/18 ondansetron HCl [Zofran] 4 mg PO QID PRN #20 tab 07/07/18 09/19/18 ketoconazole 2 % topical cream 1 applic TP DAILY #30 gm 07/21/18 09/19/18 [id number] 1 cap PO TID #90 cap 07/21/18 09/19/18 24,000-76,000-120,000 unit capsule,delayed rel cephalexin 500 mg PO TID 5 Days #15 cap 09/19/18 sulfamethoxazole-trimethoprim 1 tab PO BID #10 tab 09/19/18 [Bactrim DS] Previous Rx's Medication Instructions Recorded gabapentin 600 mg PO TID #270 tab-cap 10/11/17 acetaminophen [Mapap Extra 1,000 mg PO Q8H #60 tab 12/11/17 Strength] ibuprofen 800 mg PO Q8H PRN PRN #60 tab 12/11/17 methocarbamol 500 mg PO Q 8 pm #30 tab-cap 12/16/17 ondansetron HCl [Zofran] 4 mg PO QID PRN #20 tab 07/07/18 ketoconazole 2 % topical cream 1 applic TP DAILY #30 gm 07/21/18 [id number] 1 cap PO TID #90 cap 07/21/18 24,000-76,000-120,000 unit capsule,delayed rel cephalexin 500 mg PO TID 5 Days #15 cap 09/19/18 sulfamethoxazole-trimethoprim 1 tab PO BID #10 tab 09/19/18 [Bactrim DS] Allergies Allergy/AdvReac Type Severity Reaction Status Date / Time No Known Allergies Allergy Verified 07/21/18 10:13 General Stated Complaint: Cellulitis KAVEH: 3 Review of Systems Review of Systems All systems reviewed & are unremarkable except as noted in HPI and below Constitutional Denies weakness ENT Denies change in voice Cardiovascular Denies chest pain and Denies dyspnea Respiratory Denies cough and Denies dyspnea Gastrointestinal Denies abdominal pain, Denies nausea and Denies vomiting Genitourinary Denies dysuria Neurologic Denies weakness COUNT INCLUDES THE [facility] Medical History Acute pancreatitis (Acute) Opiate addiction (Chronic) Alcohol abuse (Chronic) Heroin abuse (Chronic) Chronic back pain (Chronic) Depression (Chronic) Anxiety, generalized (Chronic) Family History Mother Heart disease Asthma Father No problems noted. Sister Asthma Sister No problems noted. Brother No problems noted. Grandfather Essential hypertension Heart disease Asthma Grandfather Essential hypertension Heart disease Grandmother No problems noted. Grandmother No problems noted. Son No problems noted. Daughter No problems noted. Daughter Asthma Social History Smoking/Tobacco Use Status: Current every day Alcohol Intake: current Alcohol Intake frequency: a few times a week Drug use: Daily Substance use type: marijuana Housing: apartment Number of Children: 3 What type of physical activity do you participate in: none Drive intox or ride w/intox rail car driver: No Working smoke detector in home: Yes Carbon monox detector in home: Yes Do you feel safe at home: Yes Do you feel safe in your relationship?: Yes Exam Const General: no acute distress Orientation: alert HENMT Head: normal to inspection Ears: external ears normal General nose exam: external nose normal Mouth: moist mucous membranes Eyes General: appearance normal, both eyes and all related structures Neck Neck: normal visual inspection Resp Effort & Inspection: normal respiratory effort and able to speak in complete sentences Cardio Rate: regular rate Skin General skin exam: elasticity normal Neuro General: alert and oriented x3 Extrem General: normal capillary refill Psych Mental Status: mental status grossly normal Course Vital Signs Temperature 37.3 C 09/19/18 15:03 Pulse 57 L 09/19/18 15:03 Respiratory Rate 20 09/19/18 15:03 Blood Pressure 132/72 09/19/18 15:03 Pulse Oximetry 98 09/19/18 15:03 Temperature 37.3 C 09/19/18 15:03 Pulse 57 L 09/19/18 15:03 Respiratory Rate 20 09/19/18 15:03 Respiratory Effort Non-Labored 09/19/18 15:03 Blood Pressure 132/72 09/19/18 15:03 Pulse Oximetry 98 09/19/18 15:03 Oxygen Delivery Method Room Air 09/19/18 15:03 Oxygen Flow Rate 0 09/19/18 15:03 Pain Level 7 09/19/18 15:03
--- NOTE | 2018-09-19 15:22 | ED.GENADUL_ITS ---
Discharge Plan Disposition Patient Disposition: HOME Condition: Stable Discharge Details Chief Complaint: Cellulitis Clinical Impression: Cellulitis of arm, right Primary Care Provider: Joel Martinez ED Provider: Alex Avendaño Home Meds and New Rx's Prescriptions: New sulfamethoxazole-trimethoprim [Bactrim DS] 800-160 mg tablet 1 tab PO BID Qty: 10 RF: 0 cephalexin 500 mg capsule 500 mg PO TID 5 Days Qty: 15 RF: 0 No Action Creon 24,000-76,000 -120,000 unit capsule,delayed release(DR/EC) 1 cap PO TID Qty: 90 RF: 3 ketoconazole 2 % cream 1 applic TP DAILY Qty: 30 RF: 0 gabapentin 600 MG tablet 600 mg PO TID Qty: 270 RF: 4 buprenorphine-naloxone [Suboxone] 1 EACH film 8 mg Sublingual DAILY RF: 0 magnesium oxide 400 MG tablet 800 mg PO DAILY RF: 0 methocarbamol 500 MG tablet 500 mg PO Q 8 pm Qty: 30 RF: 3 acetaminophen [Mapap Extra Strength] 500 MG tablet 1,000 mg PO Q8H Qty: 60 RF: 2 ibuprofen 800 MG tablet 800 mg PO Q8H PRN PRNQty: 60 RF: 3 ondansetron HCl [Zofran] 4 mg tablet 4 mg PO QID PRN (Reason: nausea and vomiting) Qty: 20 RF: 0 Discharge Instructions Instructions: Cellulitis (ED) Additional Instructions: You are being treated for a skin infection if not better in a week see your primary care provider if you feel the rash is becoming worse, you start to have high fevers or feel more ill return to the emergency department for reevaluation Medical Decision Making 33 yo male with hx of prior opiate abuse on suboxone who denies recent use of drugs, who comes in with complaint of rash in the right arm in the ac fossa area. States he woke up with it and denies any trauma. Denies any recent needle sticks. HE has a small 5mm area that appears to be an area that either an insect bit or a needle keven. He has no swelling and has full rom of the elbow. He has around this about 5cm of brown and erythema without crepitus and has mild warmth. there is no fluctuance. There is no drainable pocket of fluid on bedside u/s but the skin does have appearance of cellulitis. Given lack of trauma and the u/s findings will tx as possible cellulitis. No crepitus or fevers and appears well systemically so doubt nec fasc at this time. ADvised f/u with pcp and return precautions given. No murmurs or other stigmata of endocarditis so doubt this at this time Differential Diagnosis cellulitis, contusion HPI General Mode of arrival: ambulatory . Date/Time Provider Initiated Documentation: 09/19/18 15:06 . Limitations to Documentation: no limitations . Information obtained by: patient . History of Present Illness 33 year old M presents to the emergency department with the chief complaint of right arm rash, described as moderate, and is localized to the right and upper extremity. Patient reports no radiation. Patient started experiencing this day(s) (1) and it has been constant. No relieving factors improve symptom(s), No ex acerbating factors reported . Patient notes no other symptoms.. Patient did receive the following treatments prior to arrival, none Related Data Home Medications Medication Instructions Recorded Confirmed buprenorphine-naloxone [Suboxone] 8 mg SUBLINGUAL DAILY film 10/11/17 09/19/18 gabapentin 600 mg PO TID #270 tab-cap 10/11/17 09/19/18 magnesium oxide 800 mg PO DAILY 11/18/17 09/19/18 acetaminophen [Mapap Extra 1,000 mg PO Q8H #60 tab 12/11/17 09/19/18 Strength] ibuprofen 800 mg PO Q8H PRN PRN #60 tab 12/11/17 09/19/18 methocarbamol 500 mg PO Q 8 pm #30 tab-cap 12/16/17 09/19/18 ondansetron HCl [Zofran] 4 mg PO QID PRN #20 tab 07/07/18 09/19/18 ketoconazole 2 % topical cream 1 applic TP DAILY #30 gm 07/21/18 09/19/18 itgruf-xclkjdbf-koxujxw 1 cap PO TID #90 cap 07/21/18 09/19/18 24,000-76,000-120,000 unit capsule,delayed rel cephalexin 500 mg PO TID 5 Days #15 cap 09/19/18 sulfamethoxazole-trimethoprim 1 tab PO BID #10 tab 09/19/18 [Bactrim DS] Previous Rx's Medication Instructions Recorded gabapentin 600 mg PO TID #270 tab-cap 10/11/17 acetaminophen [Mapap Extra 1,000 mg PO Q8H #60 tab 12/11/17 Strength] ibuprofen 800 mg PO Q8H PRN PRN #60 tab 12/11/17 methocarbamol 500 mg PO Q 8 pm #30 tab-cap 12/16/17 ondansetron HCl [Zofran] 4 mg PO QID PRN #20 tab 07/07/18 ketoconazole 2 % topical cream 1 applic TP DAILY #30 gm 07/21/18 tgqiff-isrwnbic-yiljptu 1 cap PO TID #90 cap 07/21/18 24,000-76,000-120,000 unit capsule,delayed rel cephalexin 500 mg PO TID 5 Days #15 cap 09/19/18 sulfamethoxazole-trimethoprim 1 tab PO BID #10 tab 09/19/18 [Bactrim DS] Allergies Allergy/AdvReac Type Severity Reaction Status Date / Time No Known Allergies Allergy Verified 07/21/18 10:13 General Stated Complaint: Cellulitis KAVEH: 3 Review of Systems Review of Systems All systems reviewed & are unremarkable except as noted in HPI and below Constitutional Denies weakness ENT Denies change in voice Cardiovascular Denies chest pain and Denies dyspnea Respiratory Denies cough and Denies dyspnea Gastrointestinal Denies abdominal pain, Denies nausea and Denies vomiting Genitourinary Denies dysuria Neurologic Denies weakness [facility] Medical History Acute pancreatitis (Acute) Opiate addiction (Chronic) Alcohol abuse (Chronic) Heroin abuse (Chronic) Chronic back pain (Chronic) Depression (Chronic) Anxiety, generalized (Chronic) Family History Mother Heart disease Asthma Father No problems noted. Sister Asthma Sister No problems noted. Brother No problems noted. Grandfather Essential hypertension Heart disease Asthma Grandfather Essential hypertension Heart disease Grandmother No problems noted. Grandmother No problems noted. Son No problems noted. Daughter No problems noted. 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 Working smoke detector in home: Yes Carbon monox detector in home: Yes Do you feel safe at home: Yes Do you feel safe in your relationship?: Yes Exam Const General: no acute distress Orientation: alert HENMT Head: normal to inspection Ears: external ears normal General nose exam: external nose normal Mouth: moist mucous membranes Eyes General: appearance normal, both eyes and all related structures Neck Neck: normal visual inspection Resp Effort & Inspection: normal respiratory effort and able to speak in complete sentences Cardio Rate: regular rate Skin General skin exam: elasticity normal Neuro General: alert and oriented x3 Extrem General: normal capillary refill Psych Mental Status: mental status grossly normal Course Vital Signs Temperature 37.3 C 09/19/18 15:03 Pulse 57 L 09/19/18 15:03 Respiratory Rate 20 09/19/18 15:03 Blood Pressure 132/72 09/19/18 15:03 Pulse Oximetry 98 09/19/18 15:03 Temperature 37.3 C 09/19/18 15:03 Pulse 57 L 09/19/18 15:03 Respiratory Rate 20 09/19/18 15:03 Respiratory Effort Non-Labored 09/19/18 15:03 Blood Pressure 132/72 09/19/18 15:03 Pulse Oximetry 98 09/19/18 15:03 Oxygen Delivery Method Room Air 09/19/18 15:03 Oxygen Flow Rate 0 09/19/18 15:03 Pain Level 7 09/19/18 15:03
[2018-09-19 15:29] VITALS: BP 132/72; PULSE 57; RESP 20; TEMP 37.3; O2SAT 98
== END 2018-09-19 15:29 | disposition home or self-care (01) ==
LOC: ER 15:25
PROVIDERS: Emergency Provider Emergency Medicine; PCP Family Medicine
DX: L03.113 Cellulitis of right upper limb (principal)
CPT/HCPCS: 99283

== ENCOUNTER 2019-03-08 11:36 | Emergency (ER) | payer MEDICAID, SELFPAY ==
[2019-03-08] VITALS (9 sets, daily range): BP systolic 122–127; BP diastolic 72–83; PULSE 68–89; RESP 15–29; TEMP 36.7; O2SAT 93–98
[2019-03-08] MEDS: LORazepam 2 MG/ML VIAL 1 MG IVP (12:00)
[2019-03-08] MEDS: Normal Saline 1,000 ML 1000 ML IV (12:00)
--- NOTE | 2019-03-08 12:06 | W.ED.GENAD ---
Discharge Plan Disposition Patient Disposition: HOME Condition: Stable Discharge Details Chief Complaint: DrugWithdr Clinical Impression: Opiate addiction, Alcohol abuse Primary Care Provider: Joel Martinez ED Provider: Alex Avendaño Home Meds and New Rx's Prescriptions: New chlordiazepoxide HCl 25 mg capsule See Rx Instructions .ROUTE .COMPLEX PRN (Reason: alcohol withdrawal) Qty: 15 RF: 0 Continued Creon 24,000-76,000 -120,000 unit capsule,delayed release(DR/EC) 1 cap PO TID Qty: 90 RF: 3 ketoconazole 2 % cream 1 applic TP DAILY Qty: 30 RF: 0 gabapentin 600 MG tablet 600 mg PO TID Qty: 270 RF: 4 buprenorphine-naloxone [Suboxone] 1 EACH film 8 mg Sublingual DAILY RF: 0 magnesium oxide 400 MG tablet 800 mg PO DAILY RF: 0 methocarbamol 500 MG tablet 500 mg PO Q 8 pm Qty: 30 RF: 3 acetaminophen [Mapap Extra Strength] 500 MG tablet 1,000 mg PO Q8H Qty: 60 RF: 2 ibuprofen 800 MG tablet 800 mg PO Q8H PRN PRNQty: 60 RF: 3 Discharge Instructions Instructions: Abuse of Alcohol (ED) Additional Instructions: call [facility] services for help with your opiate addictions if you have persistent vomit, high fevers or feel more ill return to the emergency department Medical Decision Making 33 yo male with hx of substance abuse, depession, prior hx of pancreatits, who comes in with chief complaint of feeling shaky and that he is going through withdrawal. Denies fevers, chest pain, sob. Has been drinking alcohol today already but is clinically sober on my exam. He has no outward evidence of alcohol withdrawal, no tachycardia, diaphhoresis, htn and has no focal deficits. He states his whole body hurts similar to when he has gone through opiate withdrawal. Will give dose of ativan as he does appear anxious and check for electrolyte abnormalities and monitor pt's labs show mild anion gap acidosis likely from alcoholic ketoacidosis and ethyl alcohol level of over 200 so doubt alcohol withdrawal. The patient is very upset that I advised I can't admit him to the hospital for alcohol withdrawal when he is not in alcohol withdrawal. He is clinically sober and stable for d/c. He denies si/hi on my exam. Will give him librium as he states he does want to come off alcohol. Return precautions given. given resources for [facility] and friend is going to take him home. shortly after d/c the patient injected unknown substance into left forearm. No changes in mental status so do not feel he requires any additional work up Differential Diagnosis alcohol withdrawal, opiate withdrawal, anxiety Medical Records Medical records reviewed: Yes I reviewed the patient's medical records. Lab Data Lab results reviewed: Yes I reviewed the patient's lab results. HPI General Mode of arrival: ambulatory. Date/Time Provider Initiated Documentation: 03/08/19 11:51. Limitations to Documentation: no limitations. Information obtained by: patient. History of Present Illness 33 year old M presents to the emergency department with the chief complaint of I'm detoxing, described as moderate, No relieving factors improve symptom(s), No exacerbating factors reported . Patient did receive the following treatments prior to arrival, none Related Data Home Medications Medication Instructions Recorded Confirmed buprenorphine-naloxone [Suboxone] 8 mg SUBLINGUAL DAILY film 10/11/17 03/08/19 gabapentin 600 mg PO TID #270 tab-cap 10/11/17 03/08/19 magnesium oxide 800 mg PO DAILY 11/18/17 03/08/19 acetaminophen [Mapap Extra 1,000 mg PO Q8H #60 tab 12/11/17 03/08/19 Strength] ibuprofen 800 mg PO Q8H PRN PRN #60 tab 12/11/17 03/08/19 methocarbamol 500 mg PO Q 8 pm #30 tab-cap 12/16/17 03/08/19 ketoconazole 2 % topical cream 1 applic TP DAILY #30 gm 07/21/18 03/08/19 qplrro-efcmpazq-ubsssmi 1 cap PO TID #90 cap 07/21/18 03/08/19 24,000-76,000-120,000 unit capsule,delayed rel chlordiazepoxide HCl See Rx Instructions .ROUTE 03/08/19 .COMPLEX PRN #15 cap Previous Rx's Medication Instructions Recorded gabapentin 600 mg PO TID #270 tab-cap 10/11/17 acetaminophen [Mapap Extra 1,000 mg PO Q8H #60 tab 12/11/17 Strength] ibuprofen 800 mg PO Q8H PRN PRN #60 tab 12/11/17 methocarbamol 500 mg PO Q 8 pm #30 tab-cap 12/16/17 ketoconazole 2 % topical cream 1 applic TP DAILY #30 gm 07/21/18 bipgkm-qsycpchl-hmpswix 1 cap PO TID #90 cap 07/21/18 24,000-76,000-120,000 unit capsule,delayed rel chlordiazepoxide HCl See Rx Instructions .ROUTE 03/08/19 .COMPLEX PRN #15 cap Allergies Allergy/AdvReac Type Severity Reaction Status Date / Time No Known Allergies Allergy Verified 03/08/19 11:52 General Stated Complaint: DrugWithdr KAVEH: 2 Review of Systems Review of Systems All systems reviewed & are unremarkable except as noted in HPI and below Constitutional Denies chills, Denies fever(s) and Denies weakness Cardiovascular Denies chest pain and Denies dyspnea Respiratory Denies cough and Denies dyspnea Gastrointestinal Denies abdominal pain, Denies nausea and Denies vomiting Musculoskeletal Denies joint swelling Neurologic Denies weakness [facility] Social History (Updated 07/21/18 @ 10:20 by Nilda Butcher LPN) Smoking/Tobacco Use Status: Current every day Tobacco Type: cigarettes Alcohol Intake: current Alcohol Intake frequency: a few times a week Alcohol type: hard liquor Drug use: Daily Substance use type: marijuana Housing: apartment Number of Children: 3 What type of physical activity do you participate in: none Drive 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 Working smoke detector in home: Yes Carbon monox detector in home: Yes Do you feel safe at home: Yes Do you feel safe in your relationship?: Yes Exam Const General: no acute distress Orientation: alert HENMT Head: normal to inspection Ears: external ears normal Mouth: moist mucous membranes Eyes General: appearance normal, both eyes and all related structures Neck Neck: normal visual inspection Resp Effort & Inspection: normal respiratory effort and able to speak in complete sentences Cardio Rate: regular rate Skin General skin exam: no rashes or lesions noted Neuro General: alert and oriented x3 Extrem General: normal to inspection Psych Mental Status: mental status grossly normal Course Vital Signs Temperature 36.7 C 03/08/19 11:47 Pulse 82 03/08/19 11:47 Respiratory Rate 16 03/08/19 11:47 Blood Pressure 125/82 03/08/19 11:47 Pulse Oximetry 97 03/08/19 11:47 Temperature 36.7 C 03/08/19 11:47 Temperature Source Skin 03/08/19 11:47 Pulse 82 03/08/19 11:47 Respiratory Rate 16 03/08/19 11:47 Respiratory Effort Non-Labored 03/08/19 11:47 Blood Pressure 125/82 03/08/19 11:47 Blood Pressure Position Supine 03/08/19 11:47 Pulse Oximetry 97 03/08/19 11:47 Oxygen Delivery Method Room Air 03/08/19 11:47 Oxygen Flow Rate 0 03/08/19 11:47 Pain Level 10 03/08/19 11:47
[2019-03-08 12:09] LABS: Abs Immature Grans 0.01 k/cumm (0.0-0.09); Absolute Basophil Count 0.02 k/cumm (0.0-0.2); Absolute Eosinophil Count 0.04 k/cumm (0.0-0.7); Absolute Lymphocyte Count 1.96 k/cumm (1.2-3.4); Absolute Monocyte Count 0.64 k/cumm (0.11-0.7); Absolute Neutrophil Count 5.91 k/cumm (1.2-6.7); Basophils % 0.2; Eosinophils % 0.5; HCT 42.1 % (40.0-50.0); HGB 14.4 g/dL (13.5-17.5); Immature Grans % 0.1; Lymphocytes % 22.8; Mean Corp. HGB Concentration 34.2 g/dL (32.0-36.0); Mean Corpuscular Hemoglobin 33.9 pg (27.0-33.0); Mean Corpuscular Volume 99.1 fL (80-95); Mean Platelet Volume 9.4 fL (8.0-11.0); Monocytes % 7.5; Neutrophils % 68.9; Platelet Count 271 x1000/uL (130-400); RBC 4.25 m/cumm (4.50-6.00); RBC Distribution Width 11.5 % (11.8-14.1); White Blood Cell Count 8.58 k/cumm (4.4-10.8)
[2019-03-08] MEDS: Ketorolac 15 MG/ML VIAL IVP (12:10)
[2019-03-08] MEDS: chlordiazePOXIDE 25 MG CAP 50 MG PO (12:13)
[2019-03-08 12:27] LABS: ALT 116 U/L (16-63); AST 194 U/L (15-37); Albumin 3.9 g/dL (3.4-5.0); Alkaline Phosphatase 122 U/L (46-116); Anion Gap 15.1 mmol/L (3-11); BUN 5 mg/dL (7-18); Bilirubin, Total 0.4 mg/dL (0.2-1.0); CO2 22.9 mmol/L (21.0-32.0); Calcium 8.8 mg/dL (8.5-10.1); Chloride 103 mmol/L (98-107); ETHANOL BLOOD 223.1 mg/dL (<3); Glucose 94 mg/dL (70-100); Lipase 45 U/L (73-393); Magnesium 1.9 mg/dL (1.8-2.4); Potassium 3.3 mmol/L (3.5-5.1); Sodium 141 mmol/L (136-145); Total Protein 7.6 g/dL (6.4-8.2)
--- NOTE | 2019-03-08 16:13 | NUR.NOTE ---
1300 pt angry that he will not be admitted. pt seen injecting something into L forearm. informed him to stop, he should not be injecting drugs here-he agreed. 5 minutes later pt was injecting again. kellen escorted pt out of ER. dropped his syringe and some of his paraphenalia on the floor on the way out.Nursing Note:
== END 2019-03-08 13:12 | disposition home or self-care (01) ==
LOC: ER 13:28
PROVIDERS: Emergency Provider Emergency Medicine; PCP Family Medicine
DX: F11.23 Opioid dependence with withdrawal (principal); F10.229 Alcohol dependence with intoxication, unspecified; Y90.7 Blood alcohol level of 200-239 mg/100 ml; E87.2 Acidosis
CPT/HCPCS: 36415; 80053; 83690; 96361; 96374; 96375; 99284; 80320; 83735; 85025; J1885; J2060

== ENCOUNTER 2019-04-24 14:46 | Inpatient (IN) | payer MEDICAID, SELFPAY ==
[2019-04-24] VITALS (33 sets, daily range): BP systolic 99–137; BP diastolic 48–91; PULSE 58–92; RESP 13–28; TEMP 36.5–37; O2SAT 96–99
--- NOTE | 2019-04-24 15:09 | ED.GENADUL_ITS ---
Discharge Plan Disposition Patient Disposition: [facility] INPATIENT Condition: Stable Discharge Details Chief Complaint: GenMedical Clinical Impression: Acute alcohol intoxication with alcoholism with delirium, Polysubstance abuse Primary Care Provider: Joel Martinez ED Provider: Angel Quintanilla Home Meds and New Rx's Prescriptions: No Action Creon 24,000-76,000 -120,000 unit capsule,delayed release(DR/EC) 1 cap PO TID Qty: 90 RF: 3 ketoconazole 2 % cream 1 applic TP DAILY Qty: 30 RF: 0 gabapentin 600 MG tablet 600 mg PO TID Qty: 270 RF: 4 buprenorphine-naloxone [Suboxone] 1 EACH film 8 mg Sublingual DAILY RF: 0 magnesium oxide 400 MG tablet 800 mg PO DAILY RF: 0 methocarbamol 500 MG tablet 500 mg PO Q 8 pm Qty: 30 RF: 3 acetaminophen [Mapap Extra Strength] 500 MG tablet 1,000 mg PO Q8H Qty: 60 RF: 2 ibuprofen 800 MG tablet 800 mg PO Q8H PRN PRNQty: 60 RF: 3 clonazepam [Klonopin] 1 mg Tablet 1 mg PO TID RF: 0 chlordiazepoxide HCl 25 mg capsule See Rx Instructions .ROUTE .COMPLEX PRN (Reason: alcohol withdrawal) Qty: 15 RF: 0 Medical Decision Making 34yom polysubstance abuser who has a hx of PTSD, Anx, previous [place] attempt and [place] [facility] [place]icidailty. Lost his job 2 weeks ago and with sworsening mood and heroin (4-6bags IV) and Alcohol (1/2- 1pint) use. Depression with thoughts of bleeding to . Vital signs are stable. IV placed, labs obtained. [facility] and mental health consultation ordered. He is given anxiolytic, parenteral fluids with banana bag. Medical screening examination including laboratory analysis performed. Initial blood draw with elevated alcohol, slight anion gap. Patient able to take liquids by mouth but became progressively more agitated. As above, received parenteral fluids. His presentation is of withdrawal and an agitated delirium, requiring Ativan. Likely this is polysubstance withdrawal although a component of mood disorder and alcohol intoxication is present. Patient medically stable for evaluation by mental health team once further alert. He will require a period of observation given his persistent delirium and withdrawal symptoms. Discussed with Dr. Shah and patient to be admitted. Lab Data Lab results reviewed: Yes I reviewed the patient's lab results. Labs: Laboratory Results - last 24 hr 04/24/19 04/24/19 04/24/19 15:40 15:40 15:40 WBC 11.46 H RBC 4.45 L Hgb 15.2 Hct 43.9 MCV 98.7 H MCH 34.2 H MCHC 34.6 RDW 11.2 L Plt Count 309 MPV 9.6 Immature Gran % 0.3 Neutrophils % 77.2 Lymphocytes % 17.5 Monocytes % 4.7 Eosinophils % 0.1 Basophils % 0.2 Absolute Neutrophils 8.85 H Absolute Lymphocytes 2.01 Absolute Monocytes 0.54 Absolute Eosinophils 0.01 Absolute Basophils 0.02 Sodium 142 Potassium 3.7 Chloride 104 Carbon Dioxide 25.3 Anion Gap 12.7 H BUN 6 L Creatinine 0.92 Estimated GFR/1.73 m2 >= 60.00 Glucose 95 Calcium 9.2 Total Bilirubin 0.3 AST 204 H ALT 205 H Alkaline Phosphatase 102 Total Protein 8.2 Albumin 4.3 Lipase 42 L TSH 0.30 L Salicylates 5.7 Acetaminophen < 2 L Ethyl Alcohol 243.4 HPI General Mode of arrival: ambulatory . Date/Time Provider Initiated Documentation: 04/24/19 15:04 . Limitations to Documentation: no limitations . Information obtained by: patient . History of Present Illness 34 year old M presents to the emergency department with the chief complaint of Vomiting x 1 day, feels like pancreatitis acting up, described as moderate, Quality is described as dull, and is localized to the abdomen. Patient reports no radiation. Patient started experiencing this hour(s) and it has been constant. Patient notes other; denies fever/chills. Patient did receive the following treatments prior to arrival, other (has been using etoh, heroin. reports suicidality) Related Data Home Medications Medication Instructions Recorded Confirmed buprenorphine-naloxone [Suboxone] 8 mg SUBLINGUAL DAILY film 10/11/17 04/24/19 gabapentin 600 mg PO TID #270 tab-cap 10/11/17 04/24/19 magnesium oxide 800 mg PO DAILY 11/18/17 04/24/19 acetaminophen [Mapap Extra 1,000 mg PO Q8H #60 tab 12/11/17 04/24/19 Strength] ibuprofen 800 mg PO Q8H PRN PRN #60 tab 12/11/17 04/24/19 methocarbamol 500 mg PO Q 8 pm #30 tab-cap 12/16/17 04/24/19 ketoconazole 2 % topical cream 1 applic TP DAILY #30 gm 07/21/18 04/24/19 ifwmyc-qnjufyqq-ftmcjxg 1 cap PO TID #90 cap 07/21/18 04/24/19 24,000-76,000-120,000 unit capsule,delayed rel chlordiazepoxide HCl See Rx Instructions .ROUTE 03/08/19 04/24/19 .COMPLEX PRN #15 cap clonazepam [Klonopin] 1 mg PO TID 04/24/19 04/24/19 Previous Rx's Medication Instructions Recorded gabapentin 600 mg PO TID #270 tab-cap 10/11/17 acetaminophen [Mapap Extra 1,000 mg PO Q8H #60 tab 12/11/17 Strength] ibuprofen 800 mg PO Q8H PRN PRN #60 tab 12/11/17 methocarbamol 500 mg PO Q 8 pm #30 tab-cap 12/16/17 ketoconazole 2 % topical cream 1 applic TP DAILY #30 gm 07/21/18 dupocs-kjlmeibc-zynhjhh 1 cap PO TID #90 cap 07/21/18 24,000-76,000-120,000 unit capsule,delayed rel chlordiazepoxide HCl See Rx Instructions .ROUTE 03/08/19 .COMPLEX PRN #15 cap Allergies Allergy/AdvReac Type Severity Reaction Status Date / Time No Known Allergies Allergy Verified 04/24/19 15:15 General Stated Complaint: GenMedical KAVEH: 2 Review of Systems Narrative: see hpi. No CP, SOB. No injury. [facility] Medical History Acute pancreatitis (Acute) Alcohol abuse (Chronic) Anxiety, generalized (Chronic) Chronic back pain (Chronic) Depression (Chronic) Heroin abuse (Chronic) Opiate addiction (Chronic) Family History Mother Heart disease Asthma Father No problems noted. Sister Asthma Sister No problems noted. Brother No problems noted. Grandfather Essential hypertension Heart disease Asthma Grandfather Essential hypertension Heart disease Grandmother No problems noted. Grandmother No problems noted. Son No problems noted. Daughter No problems noted. 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 HEAD: Normocephalic, atraumatic ENT: Mucous membranes dry, oropharynx unremarkable, External ear exam unremarkable EYES: PERRL, EOMI NECK: Full ROM, no LINDA, no menigismus CHEST/RESP: Nontender, clear to auscultation bilateral, no wheeze/rhonchi/rales CARDIOVASCULAR: RRR, no murmur, rub estuardo. 2+ Rad pulse bilateral ABDOMEN: Soft, mild diffuse tenderness without rebound or guarding, no mass. +Bowel sounds EXT: Full ROM, no edema, no rash Neuro: Grossly normal neurologic exam, conversant, interactive. Psych: Speech fluent, thoughts congruent, affect depressed and anxious Course Vital Signs Vital signs: Vital Signs Temperature 36.6 C 04/24/19 14:56 Pulse 82 04/24/19 14:56 Respiratory Rate 22 04/24/19 14:56 Blood Pressure 107/61 04/24/19 14:56 Pulse Oximetry 97 04/24/19 14:56 Temperature 36.6 C 04/24/19 15:00 Temperature Source Skin 04/24/19 15:00 Pulse 71 04/24/19 15:00 Respiratory Rate 18 04/24/19 15:00 Blood Pressure 107/61 04/24/19 15:00 Blood Pressure Position Left Lateral 04/24/19 15:00 Pulse Oximetry 97 04/24/19 15:00 Oxygen Delivery Method Room Air 04/24/19 15:00 Oxygen Flow Rate 0 04/24/19 15:00 Comment 04/24/19 14:56
--- NOTE | 2019-04-24 15:25 | NUR.NOTE ---
Nursing Note: blood draw at this time with ultrasound by Bernadette NAM
--- NOTE | 2019-04-24 15:28 | NUR.NOTE ---
Nursing Note: patient is uncooperative with blood draws, screaming at RN
--- NOTE | 2019-04-24 15:30 | NUR.NOTE ---
Nursing Note: requested other rn
--- NOTE | 2019-04-24 15:39 | NUR.NOTE ---
Nursing Note: at this time patient requested his phone to be returned to him, doctor was notified of this request.
--- NOTE | 2019-04-24 15:42 | NUR.NOTE ---
Nursing Note: Access in room at this time
--- NOTE | 2019-04-24 15:43 | NUR.NOTE ---
Nursing Note:access left room at this time
--- NOTE | 2019-04-24 15:43 | NUR.NOTE ---
Nursing Note: rn in room at this time, talk about his phone per Dr Quintanilla
[2019-04-24] MEDS: Normal Saline 1,000 ML 150 ML IV (15:45)
[2019-04-24] MEDS: LORazepam 2 MG/ML VIAL 0.5 MG IVP (15:46)
[2019-04-24] MEDS: Pantoprazole 40 MG VIAL IVP (15:47)
[2019-04-24] MEDS: Ondansetron 4 MG/2 ML VIAL IVP (15:47)
[2019-04-24 15:49] LABS: Abs Immature Grans 0.03 k/cumm (0.0-0.09); Absolute Basophil Count 0.02 k/cumm (0.0-0.2); Absolute Eosinophil Count 0.01 k/cumm (0.0-0.7); Absolute Monocyte Count 0.54 k/cumm (0.11-0.7); Basophils % 0.2; Eosinophils % 0.1; HCT 43.9 % (40.0-50.0); HGB 15.2 g/dL (13.5-17.5); Immature Grans % 0.3; Lymphocytes % 17.5; Mean Corp. HGB Concentration 34.6 g/dL (32.0-36.0); Mean Corpuscular Hemoglobin 34.2 pg (27.0-33.0); Mean Corpuscular Volume 98.7 fL (80-95); Mean Platelet Volume 9.6 fL (8.0-11.0); Monocytes % 4.7; Neutrophils % 77.2; Platelet Count 309 x1000/uL (130-400); RBC 4.45 m/cumm (4.50-6.00); RBC Distribution Width 11.2 % (11.8-14.1); White Blood Cell Count 11.46 k/cumm (4.4-10.8)
--- NOTE | 2019-04-24 15:49 | NUR.NOTE ---
Nursing Note: patient requested drink at this time.
[2019-04-24 15:50] LABS: Absolute Lymphocyte Count 2.01 k/cumm (1.2-3.4); Absolute Neutrophil Count 8.85 k/cumm (1.2-6.7)
--- NOTE | 2019-04-24 15:50 | NUR.NOTE ---
Nursing Note:Per Doctor Socorro patient was given water at this time.
--- NOTE | 2019-04-24 15:51 | NUR.NOTE ---
Nursing Note: Nurse is room at this time
--- NOTE | 2019-04-24 15:56 | NUR.NOTE ---
pt has an IV pump in the room for admin of bannana bag. pts observer has visibilty of the pump and cord .Nursing Note:
[2019-04-24] MEDS: clonazePAM 0.5 MG TAB 1 MG PO (15:57)
[2019-04-24] MEDS: Ketorolac 15 MG/ML VIAL IVP (15:57)
[2019-04-24] MEDS: MAGNESIUM SULFATE 8.12 MEQ, MULTIVITAMIN 10 ML, THIAMINE 100 MG, FOLIC ACID 1 MG in Nor... 168.867 MG IV (15:57)
--- NOTE | 2019-04-24 15:58 | NUR.NOTE ---
Nursing Note: rn left room, 15:53
--- NOTE | 2019-04-24 16:14 | NUR.NOTE ---
Nursing Note: rn in room at this time, wrapping IV
--- NOTE | 2019-04-24 16:15 | NUR.NOTE ---
Nursing Note: patient's spouse in room with patient, approved/per Doctor Socorro da silva
[2019-04-24 16:19] LABS: ALT 205 U/L (16-63); AST 204 U/L (15-37); Albumin 4.3 g/dL (3.4-5.0); Alkaline Phosphatase 102 U/L (46-116); Anion Gap 12.7 mmol/L (3-11); BUN 6 mg/dL (7-18); Bilirubin, Total 0.3 mg/dL (0.2-1.0); CO2 25.3 mmol/L (21.0-32.0); CREATININE 0.92 mg/dL (0.70-1.30); Calcium 9.2 mg/dL (8.5-10.1); Chloride 104 mmol/L (98-107); ETHANOL BLOOD 243.4 mg/dL (<3); Glucose 95 mg/dL (70-100); Lipase 42 U/L (73-393); Potassium 3.7 mmol/L (3.5-5.1); Sodium 142 mmol/L (136-145); Total Protein 8.2 g/dL (6.4-8.2)
--- NOTE | 2019-04-24 16:32 | NUR.NOTE ---
Nursing Note: spouse left the room.
[2019-04-24 16:33] LABS: Salicylate 5.7 mg/dL (2.8-20.0)
[2019-04-24 16:35] LABS: Acetaminophen < 2 ug/mL (10-30)
--- NOTE | 2019-04-24 16:40 | NUR.NOTE ---
Nursing Note: RN in room, getting vitals signs
--- NOTE | 2019-04-24 16:41 | NUR.NOTE ---
Nursing Note: patient stumble onto iv cart, patient assisted back to bed, Vital went obtain at this time
--- NOTE | 2019-04-24 16:45 | NUR.NOTE ---
Nursing Note: spouse in room to say goodbye
--- NOTE | 2019-04-24 16:46 | NUR.NOTE ---
Nursing Note: Dr Quintanilla and Rn in room with patient.
--- NOTE | 2019-04-24 16:47 | CMSP_ITS ---
- If Service Date Differs Date of service: 04/24/19 Time of Service: 16:47 Care Management Safety Plan Jose presented to the ED with complaints of vomiting X 1 day which he reports feels like his pancreatitis. He shared that he lost his job 2 weeks ago and has had an increase in depression with an associated increase in alcohol and heroin use. Per provider, he stated that he has thoughts of bleeding to . CPSO has been ordered. Per provider, he is medically stable for evaluation by mental health which has been ordered. Jose has had a previous suicide attempt and hospitalization at [facility]. CM will respond to ED to assess patient after patient has been medically cleared and assessed by screener. If screener deems patient meets criteria for psychiatric stabilization CM will facilitate interdepartmental huddle with [facility] screener for safety planning considerations and meet with patient to review [facility] policy and safety plan, establish individual wishes for treatment and maintain patient rights. In the interim; please note safety plan below to guide patient care while awaiting further assessment in the ED. INTERIM SAFETY PLAN: 1. Will remain on suicide precautions and in paper clothes. 2. Will remain in room under direct supervision of one-on-one staff at all times provided by ATIYA, CLIENT SERVICES DIRECTOR oral surgery assistant. 3. May have paper cups, plates, finger foods as well as a cardboard spoon with which to eat meals. 4. Follow [facility] Management of the Admitted Behavioral Health Patient policy. 5. Comfort bath system only. 6. No personal belongings 7. No visitors. 8. Phone contact limited to incoming calls. 9. Due to VOLUNTARY status, if patient wishes to leave [facility], the [facility] animal care service worker must be contacted to re-evaluate patient prior to patient exiting the building. If deemed appropriate for inpatient psychiatric care, safety plan will be established with patient, and care team, to adhere to patient goals, identify restrictions based on behavioral status, address nutrition, and determine allowed personal belongings, tools for hygiene and personal care. As well plan will determine level of activity including ambulation, level of supervision, visitors, and determine privileges based on level of acuity, behaviors and level of engagement by patient.
[2019-04-24] MEDS: LORazepam 2 MG/ML VIAL 1 MG IVP ×2 (17:01→17:43)
[2019-04-24 17:42] LABS: Bilirubin Negative (Negative); Blood Negative (Negative); Clarity Clear (Clear); Glucose Negative (Negative); Ketones Negative (Negative); Leukocyte Esterase Negative (Negative); Nitrite Negative (Negative); Urobilinogen 0.2 EU/dL (Up TO 0.2); pH 5.5 (5-8)
[2019-04-24 17:48] LABS: *AMPHETAMINES SCREEN URINE Negative (Negative); *BARBITURATES SCREEN URINE Negative (Negative); *BENZODIAZEPINES SCREEN URINE Negative (Negative); Cannabinoids THC POSITIVE (Negative); Cocaine Screen,Urine Negative (Negative); METHADONE URINE SCREEN Negative (Negative); OPIATES URINE SCREEN POSITIVE (Negative)
--- NOTE | 2019-04-24 17:52 | NUR.NOTE ---
pt has continued to be agitated in his bed , sitting upa and attempting to get out . he was transferd to 1 and placed on monitor while he continues to receive Ativan as orderd . anticipate admit to ICU .Nursing Note:
[2019-04-24 17:53] LABS: Tricyclic Antidepressants Negative (Negative)
[2019-04-24] MEDS: Haloperidol 5 MG/ML VIAL (18:30)
--- NOTE | 2019-04-24 18:36 | NUR.NOTE ---
pt has continued to be sitting up in the bed and falling back requirinfg constant assist to not bang his head on the rails ect, Nursing Note:
--- NOTE | 2019-04-24 19:22 | W.PM.HP.N ---
Date of service: 04/24/19 Time of Service: 19:22 Assessment and Plan Assessment and plan (1) Delirium: Status: Acute Assessment and plan: patient is acutely delirious secondary to alcohol intoxication and/or opioid abuse. He is afebrile although he has a mild leukocytosis. he has no obvious signs of infection for cause for his delirium. I will treat him for alcohol intoxication, monitor for signs of alcohol withdrawal w/ CIWA scoring and treat w/ benzodiazepines accordingly. He liz receive iv fluids as he appears to be dehydrated (dry mucous membranes and poor oral intake); give MVS/thiamine per iv, and await clearance of his opiates. Once he is mentallly alert then mental health consult can be obtained to assess the seriousness of his S.I. and depression. (2) Alcohol abuse: Status: Chronic Assessment and plan: treatment as above w/ iv fluids, MVS, thiamine and treatment for acute alcohol withdrawal. (3) Opiate addiction: Status: Chronic Assessment and plan: patient reportedly is in treatment at [facility] with suboxone but patient is currently abusing heroin and therefore should probably be referred to inpatient treatment program as his outpatient program is not working for him. Qualifiers: Substance use status: with opioid-induced mood disorder Qualified Code(s): F11.24 - Opioid dependence with opioid-induced mood disorder (4) Heroin abuse: Status: Chronic Assessment and plan: consider referral to inpatient drug treatment and psychiatric treatment facility once he rosy up. (5) Elevated transaminase level: Status: Acute Assessment and plan: secondary to alcoholic hepatitis (6) Depression: Status: Chronic Assessment and plan: by report he has been more depressed since losing his job couple weeks ago. Once he is more awake and coherent then he can be assessed as to the seriousness of his suicidal ideation and determine whether or not he needs inpatient psychiatric treatment of his depression. Qualifiers: Depression Type: major depressive disorder Major depression recurrence: recurrent Active/Remission status: currently active Major depression episode severity: moderate Qualified Code(s): F33.1 - Major depressive disorder, recurrent, moderate History of Present Illness History of Present Illness Chief Complaint: alcohol intoxication, delirium, Narrative: Information from telephone report from Dr. Angel Quintanilla, review of patient's chart and interview w/ patient's girlfriend. Limited information from patient as he is delirious and unable to sustain attention for interview. 34 yr old male w/ PMH PTSD, depression, alcoholism, heroin abuse who has been in drug treatment through [facility], who lost his job 2 weeks ago and has been contemplating suicide w/ plan to cut himself and bleed to or to take an overdose. He has been increasing his alcohol use drinking 1 pint per day and abusing heroin (4 to 6 bags/day). Evaluation in the ER by Dr. Angel Quintanilla revealed the patient to be agitated, tachycardic and intoxicated w/ CAREN of 243 mg/dL, nauseated with dull abdominal pain. Labs reveal leukocytosis of 11,460, elevated transaminases (AST 204, ALT 205 w/ normal alkaline phosphatase and normal bilirubin and normal lipase), negative UA, tox screen + for opiates and THC. Patient was treated in the ER w/ iv fluids, MVS/thiamine via banana bag, and given benzodiazepines including oral Klonopin 1 mg and total of 3.5 mg lorazepam and haldol 4 mg IV. He is now being admitted to ICU for evluation and treatment of acute delirium, alcohol intoxication, possible narcotic withdrawal and suicidal ideation. Review of Systems Unobtainable due to mental status [facility] Medical History (Updated 04/24/19 @ 20:42 by Miko Lazcano) Acute pancreatitis (Resolved) Alcohol abuse (Chronic) Anxiety, generalized (Chronic) Chronic back pain (Chronic) Depression (Chronic) Heroin abuse (Chronic) Opiate addiction (Chronic) Family History Mother Heart disease Asthma Father No problems noted. Sister Asthma Sister No problems noted. Brother No problems noted. Grandfather Essential hypertension Heart disease Asthma Grandfather Essential hypertension Heart disease Grandmother No problems noted. Grandmother No problems noted. Son No problems noted. Daughter No problems noted. 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: No Working smoke detector in home: Yes Carbon monox detector in home: Yes Do you feel safe at home: Yes Do you feel safe in your relationship?: Yes Meds Home Medications and Allergies Home Medications Medication Instructions Recorded Confirmed Type buprenorphine-naloxone [Suboxone] 8 mg SUBLINGUAL DAILY film 10/11/17 04/24/19 History gabapentin 600 mg PO TID #270 tab-cap 10/11/17 04/24/19 Rx magnesium oxide 800 mg PO DAILY 11/18/17 04/24/19 History acetaminophen [Mapap Extra 1,000 mg PO Q8H #60 tab 12/11/17 04/24/19 Rx Strength] ibuprofen 800 mg PO Q8H PRN PRN #60 tab 12/11/17 04/24/19 Rx methocarbamol 500 mg PO Q 8 pm #30 tab-cap 12/16/17 04/24/19 Rx ketoconazole 2 % topical cream 1 applic TP DAILY #30 gm 07/21/18 04/24/19 Rx [id number]-[id number]-[id number] 1 cap PO TID #90 cap 07/21/18 04/24/19 Rx 24,000-76,000-120,000 unit capsule,delayed rel chlordiazepoxide HCl See Rx Instructions .ROUTE 03/08/19 04/24/19 Rx .COMPLEX PRN #15 cap clonazepam [Klonopin] 1 mg PO TID 04/24/19 04/24/19 History Allergies Allergy/AdvReac Type Severity Reaction Status Date / Time No Known Allergies Allergy Verified 04/24/19 15:15 Exam Const General: combative, disheveled, ill appearing acutely, intoxicated appearing and lethargic Nutritional Appearance: average body habitus Orientation: oriented to person, not oriented to place, not oriented to time and confused Limitations: altered mental status [facility] Head: normal to inspection, no palpable skull fracture, normocephalic and atraumatic Ears: hearing grossly normal bilaterally General nose exam: mucous membranes and turbinates abnormal other (dry) Face and sinus: normal facial exam Mouth: oral mucosa abnormal (dry) Teeth and gingiva: poor dentition Eyes General: appearance normal, both eyes and all related structures Alignment and Position: alignment normal Periorbital: periorbital findings normal Eyelids: eyelids normal Conjunctivae: conjunctival abnormality right conjunctival injection Sclera: sclerae normal Cornea: corneas normal Pupils: pinpoint bilaterally EOM: EOM intact bilaterally Direct ophthalmoscopy: normal light reflex Neck Neck: normal visual inspection, full ROM, no lymphadenopathy, no meningeal signs, trachea midline, supple and no JVD Thyroid: thyroid normal Carotids: normal carotid upstroke Lymphatic: no lymphadenopathy noted Resp Effort & Inspection: normal respiratory effort and able to speak in complete sentences Auscultation: clear to auscultation bilaterally Cardio Jugular venous pressure: no JVD Palpation: normal PMI Rate: regular rate Rhythm: regular rhythm Heart Sounds: S1 normal, S2 normal, normal, physiologic split S2, no gallops, no murmurs and no rubs Bruits: no abdominal aortic bruits and no carotid bruits Pulses: normal peripheral pulses GI Inspection: normal to inspection Palpation: soft, no hepatosplenomegaly and nontender Percussion: normal to percussion Auscultation: normal bowel sounds Skin General skin exam: no rashes or lesions noted, elasticity normal and turgor normal Neuro General: tone normal, moves all extremities, no meningeal signs and no focal motor deficits Cranial Nerves: PERRL, EOM intact bilaterally, no nystagmus, facial strength normal, tongue midline, hearing normal, able to rotate head bilaterally and able to elevate shoulders bilaterally Cognition: abnormal cognition Speech: abnormal speech slurred Motor: muscle tone normal throughout, strength 5/5 throughout and no movement abnormalities noted Sensory Exam: no sensory deficits noted Extrem General: normal to inspection, full ROM, no joint enlargement, no clubbing, cyanosis or edema, no pedal edema and no calf tenderness Psych Appearance: disheveled Mental Status: other (delirium) Speech and Movement: agitated and restless Mood: labile mood and other (delirium) Affect: dysphoric affect Attitude: avoids eye contact Thought Process: circumstantial Thought Content: delusions Insight: poor Judgment: poor Results Labs Result diagrams: 04/24/19 15:40 04/24/19 15:40 Labs: Laboratory Results - last 24 hr 04/24/19 04/24/19 04/24/19 15:40 15:40 15:40 WBC 11.46 H RBC 4.45 L Hgb 15.2 Hct 43.9 MCV 98.7 H MCH 34.2 H MCHC 34.6 RDW 11.2 L Plt Count 309 MPV 9.6 Immature Gran % 0.3 Neutrophils % 77.2 Lymphocytes % 17.5 Monocytes % 4.7 Eosinophils % 0.1 Basophils % 0.2 Absolute Neutrophils 8.85 H Absolute Lymphocytes 2.01 Absolute Monocytes 0.54 Absolute Eosinophils 0.01 Absolute Basophils 0.02 Sodium 142 Potassium 3.7 Chloride 104 Carbon Dioxide 25.3 Anion Gap 12.7 H BUN 6 L Creatinine 0.92 Estimated GFR/1.73 m2 >= 60.00 Glucose 95 Calcium 9.2 Total Bilirubin 0.3 AST 204 H ALT 205 H Alkaline Phosphatase 102 Total Protein 8.2 Albumin 4.3 Lipase 42 L TSH 0.30 L Urine Color Urine Clarity Urine pH Ur Specific [place] Urine Protein Urine Ketones Urine Blood Urine Nitrite Urine Bilirubin Urine Urobilinogen Ur Leukocyte Esterase Urine Glucose Salicylates 5.7 Urine Opiates Screen Urine Methadone Screen Acetaminophen < 2 L Ur Barbiturates Screen Ur Tricyclics Screen Ur Amphetamines Screen U Benzodiazepines Scrn Urine Cocaine Screen Ur THC Screen Ethyl Alcohol 243.4 04/24/19 04/24/19 17:30 17:30 WBC RBC Hgb Hct MCV MCH MCHC RDW Plt Count MPV Immature Gran % Neutrophils % Lymphocytes % Monocytes % Eosinophils % Basophils % Absolute Neutrophils Absolute Lymphocytes Absolute Monocytes Absolute Eosinophils Absolute Basophils Sodium Potassium Chloride Carbon Dioxide Anion Gap BUN Creatinine Estimated GFR/1.73 m2 Glucose Calcium Total Bilirubin AST ALT Alkaline Phosphatase Total Protein Albumin Lipase TSH Urine Color Yellow Urine Clarity Clear Urine pH 5.5 Ur Specific [place] 1.010 Urine Protein Negative Urine Ketones Negative Urine Blood Negative Urine Nitrite Negative Urine Bilirubin Negative Urine Urobilinogen 0.2 Ur Leukocyte Esterase Negative Urine Glucose Negative Salicylates Urine Opiates Screen Positive A Urine Methadone Screen Negative Acetaminophen Ur Barbiturates Screen Negative Ur Tricyclics Screen Negative Ur Amphetamines Screen Negative U Benzodiazepines Scrn Negative Urine Cocaine Screen Negative Ur THC Screen Positive A Ethyl Alcohol Last Vital Signs Temp 36.6 C 04/24/19 17:39 Pulse 84 04/24/19 17:48 Resp 21 04/24/19 18:30 BP 128/71 04/24/19 17:46 Pulse Ox 99 04/24/19 18:30
[2019-04-24] MEDS: diazePAM 10 MG/2 ML SYR IVP ×3 (19:54→21:46)
[2019-04-24] MEDS: Normal Saline Flush 10 ML SYR IVP ×2 (20:19→21:48)
[2019-04-24] MEDS: DEXTROSE 5%-0.45% SALINE 1,000 ML 150 ML IV (20:36)
[2019-04-24] MEDS: Enoxaparin 40 MG/0.4 ML SYR SC (22:37)
[2019-04-25] VITALS (22 sets, daily range): BP systolic 104–129; BP diastolic 57–104; PULSE 0–97; RESP 14–35; TEMP 36.4–37.1; O2SAT 95–100
[2019-04-25] MEDS: ACETAMINOPHEN 1,000 MG/100 ML BTL 400 MG IVPB (00:17)
[2019-04-25] MEDS: Normal Saline Flush 10 ML SYR IVP ×3 (00:17→10:39)
[2019-04-25] MEDS: DEXTROSE 5%-0.45% SALINE 1,000 ML 150 ML IV (03:28)
[2019-04-25] MEDS: diazePAM 10 MG/2 ML SYR IVP ×2 (03:41→05:44)
[2019-04-25 07:14] LABS: Abs Immature Grans 0.01 k/cumm (0.0-0.09); Absolute Basophil Count 0.02 k/cumm (0.0-0.2); Absolute Eosinophil Count 0.07 k/cumm (0.0-0.7); Absolute Lymphocyte Count 2.08 k/cumm (1.2-3.4); Absolute Monocyte Count 0.85 k/cumm (0.11-0.7); Basophils % 0.2; Eosinophils % 0.8; HCT 41.2 % (40.0-50.0); HGB 14.2 g/dL (13.5-17.5); Immature Grans % 0.1; Lymphocytes % 24.7; Mean Corp. HGB Concentration 34.5 g/dL (32.0-36.0); Mean Corpuscular Hemoglobin 34.3 pg (27.0-33.0); Mean Corpuscular Volume 99.5 fL (80-95); Monocytes % 10.1; Neutrophils % 64.1; Platelet Count 264 x1000/uL (130-400); RBC 4.14 m/cumm (4.50-6.00); White Blood Cell Count 8.43 k/cumm (4.4-10.8)
[2019-04-25 07:35] LABS: ALT 148 U/L (16-63); AST 122 U/L (15-37); Albumin 2.1 g/dL (3.4-5.0); Alkaline Phosphatase 87 U/L (46-116); Anion Gap 11.1 mmol/L (3-11); BUN 5 mg/dL (7-18); Bilirubin, Total 0.6 mg/dL (0.2-1.0); CO2 22.9 mmol/L (21.0-32.0); CREATININE 0.78 mg/dL (0.70-1.30); Calcium 8.6 mg/dL (8.5-10.1); Chloride 107 mmol/L (98-107); Glucose 127 mg/dL (70-100); Magnesium 2.1 mg/dL (1.8-2.4); Potassium 3.9 mmol/L (3.5-5.1); Sodium 141 mmol/L (136-145); Total Protein 6.8 g/dL (6.4-8.2)
--- NOTE | 2019-04-25 08:36 | PDOC.CMIN ---
- If Service Date Differs Date of service: 04/25/19 Time of Service: 08:36 Care Management Initial Assess REASON FOR HOSPITALIZATION:: delerium PAST MEDICAL HISTORY/PAST SURGICAL HISTORY:: Medical History (Updated 04/24/19 @ 20:42 by Miko Lazcano). Acute pancreatitis (Resolved). Alcohol abuse (Chronic). Anxiety, generalized (Chronic). Chronic back pain (Chronic). Depression (Chronic). Heroin abuse (Chronic). Opiate addiction (Chronic ADVANCE DIRECTIVES:: None on file CODE STATUS:: Full Code INSURANCE COVERAGE / FINANCIAL ISSUES:: Medicaid PRIMARY CARE PHYSICIAN:: Joel Martinez POTENTIAL DISCHARGE NEEDS:: Substance abuse treatment program PATIENT/FAMILY EDUCATION NEEDS:: Discharge plan, limitations, follow up plan, Ask Me Three. TRANSPORTATION:: via private vehicle
[2019-04-25] MEDS: Acetaminophen 325 MG TAB PO (09:39)
--- NOTE | 2019-04-25 10:22 | PHARADMIT ---
Admission Pharmacy Clinical Review Code Status Full Code Current Weight 63.9 kg Renally Cleared and Narrow Therapeutic Index Meds CrCl ~115 ML/MIN QTc Value / Action Taken QTc 416 BP Control, Fever BP 124/73 Electrolytes reviewed Na 141, K+ 3.9, Mag 2.1 DVT Prophylaxis LMWH 40mg Opiate Usage / Scheduled Bowel Regimen Ordered no opiates, yes bowel reg Plt/SCr for Heparin / Enoxaparin Plt 264, SCr 0.78 INR for Warfarin H/H stable, WBC/Bands H/H 14.2/41.2, WBC 8.43 (down from admission) Antibiotic appropriateness Cultures and Sensitivities Surgical ABX d/c within 24 hr DM control / Insulin Dosing Heart Failure (Check EF%) (CARLOS's, B-Block, Diuretics) IV to PO Switch Home Meds Reviewed Yes - Clonazepam+methocarbamol -- additive [employer] esteban's Home Meds Not Ordered Clonazepam, methocarbamol, gabapentin, creon, magnesium oxide, suboxone 8mg film Comments Acute leukocytosis yesterday but no sign of infection; MEHNAZ pt but currently abusing opiates so suboxone not ordered [facility] protocol
--- NOTE | 2019-04-25 11:46 | NUR.NOTE ---
The girlfriend is at the bedside visiting. She stepped out while the patient spoke with the recovery coordinator. Nursing Note:
--- NOTE | 2019-04-25 12:16 | DSE_ITS ---
Date of service: 04/25/19 Time of Service: 12:16 DS: Diagnosis Discharge Diagnosis (1) Delirium: Status: Acute (2) Alcohol abuse: Status: Chronic (3) Opiate addiction: Status: Chronic (4) Heroin abuse: Status: Chronic (5) Elevated transaminase level: Status: Acute (6) Depression: Status: Chronic Discharge Plan Disposition Patient Disposition: HOME Condition: Stable Discharge Details Chief Complaint: GenMedical Clinical Impression: Acute alcohol intoxication with alcoholism with delirium, Polysubstance abuse Reason For Visit: DELIRIUM,ALCOHOL INTOX,POLYSUBST ABUSE,SI Admit Date/Time: 04/24/19 17:47 Admit Provider: Miko Lazcano Attending Provider: Miko Lazcano Primary Care Provider: Joel Martinez ED Provider: Angel Quintanilla Hospital Course Hospital Course: Chief Complaint: Intoxication HPI: 33-year-old man with a history of alcohol abuse and recurrent pancreatitis, adm itted from [facility] Emergency Department on 06/24 with a diagnosis of Acute Delirium due to intoxication. Mr. Burns has a history of ETOH and heroin/narcotics abuse, and follows chronically at [facility]. He states that he has in the past drank upwards of 1-2 bottles of Vodka daily. He has also had a prior history of recurrent pancreatitis, PTSD, depression, and anxiety. He is also on pancreatic replace ment therapy for chronic pancreatitis. There was possible note of contemplation of suicide following loss of his job 2 weeks ago prior to admission, according to the admitting physician's conversation with the patient's girlfriend at the time of admission, with increase in alcohol use and recurrent abuse of heroin following. The patient presented to the ED agitated, tachycardic, and intoxicated with a BAL of 243. He had mild leukocytosis, elevated LFTs (AST/ALT in the 200's), and a tox screen positive for Opiates and THC. He was administered benzos and haldol, and given hydration and IVFs with thiamine/MVI, and referred for admission for acute delirium in the setting of alcohol and drug intoxication. This morning Mr. Burns is at his baseline mental status. He has met with a Drug and Alcohol counselor, with information provided to him to contact [facility] for treatment. He denies any suicidality, and indicates that he may have stated this in order to stop from being discharged home from the ED. Labwork is without significant abnormality, LFTs appear improved and with elevation in setting of EtOH and drug abuse. TSH was mildly low in the setting of acute illness, and should be rechecked soon as an outpatient. Home Meds and New Rx's Prescriptions: Continued Creon 24,000-76,000 -120,000 unit capsule,delayed release(DR/EC) 1 cap PO TID Qty: 90 RF: 3 ketoconazole 2 % cream 1 applic TP DAILY Qty: 30 RF: 0 gabapentin 600 MG tablet 600 mg PO TID Qty: 270 RF: 4 buprenorphine-naloxone [Suboxone] 1 EACH film 8 mg Sublingual DAILY RF: 0 magnesium oxide 400 MG tablet 800 mg PO DAILY RF: 0 methocarbamol 500 MG tablet 500 mg PO Q 8 pm Qty: 30 RF: 3 acetaminophen [Mapap Extra Strength] 500 MG tablet 1,000 mg PO Q8H Qty: 60 RF: 2 ibuprofen 800 MG tablet 800 mg PO Q8H PRN PRNQty: 60 RF: 3 clonazepam [Klonopin] 1 mg Tablet 1 mg PO TID RF: 0 chlordiazepoxide HCl 25 mg capsule See Rx Instructions .ROUTE .COMPLEX PRN (Reason: alcohol withdrawal) Qty: 15 RF: 0 Discharge Instructions Activity:: Activity as Tolerated Equipment/Supplies:: No Equipment Needed Diet:: As Tolerated Discharge Orders Discharge Orders: Discharge Order (Routine); Ordered 04/25/19 Ordered By: Shahab Nelson DS: Summary Status at Discharge Functional status at discharge: independent ambulation Overall status at discharge: patient is back to baseline Mental Status: mental status grossly normal Speech and Movement: speech and movement normal Mood: congruent mood Affect: normal affect Exam Psych Mental Status: mental status grossly normal Speech and Movement: speech and movement normal Mood: congruent mood Affect: normal affect DS: Data Vitals/I&O Vitals and I&O: Vital Signs Temperature 37.1 C 04/25/19 07:43 Temperature Source Temporal Artery Scan 04/25/19 07:43 Pulse 88 04/25/19 08:01 Pulse 84 04/25/19 10:00 Respiratory Rate 20 04/25/19 10:00 Respiratory Effort Non-Labored 04/25/19 07:43 Respiratory Depth Normal 04/25/19 07:43 Respiratory Pattern Normal 04/25/19 07:43 Blood Pressure 124/73 04/25/19 08:01 Blood Pressure Mean 84 04/25/19 08:01 Blood Pressure Position Supine 04/24/19 17:40 Pulse Oximetry 97 04/25/19 07:43 Oxygen Delivery Method Room Air 04/25/19 07:43 Oxygen Flow Rate 0 04/25/19 07:43 Pain Level 7 04/25/19 09:39 Comment 04/24/19 14:56 Intake & Output 04/24/19 04/25/19 04/25/19 23:59 11:59 23:59 Intake Total 3027 / 3027 Output Total 350 / 350 0 / 0 Balance -350 / -350 3026 / 3027 Weight 62.3 kg 63.9 kg Intake: IV 2109 / 2109 Oral 7 / 7 Output: Urine 350 / 350 0 / 0 Other: Urine Color Yellow Urine Appearance Cloudy Urine Odor None Comment Pt getting up to void with urinal. I have not assessed any urine yet Voiding Methods Urinal Urinal Data Completed and Pending Labs on day of discharge: Labs from last 24 hours 04/25/19 04/25/19 04/24/19 06:45 06:20 17:30 WBC 8.43 RBC 4.14 L Hgb 14.2 Hct 41.2 MCV 99.5 H MCH 34.3 H MCHC 34.5 RDW 11.0 L Plt Count 264 MPV 10.0 Immature Gran % 0.1 Neutrophils % 64.1 Lymphocytes % 24.7 Monocytes % 10.1 Eosinophils % 0.8 Basophils % 0.2 Absolute Neutrophils 5.40 Absolute Lymphocytes 2.08 Absolute Monocytes 0.85 H Absolute Eosinophils 0.07 Absolute Basophils 0.02 Sodium 141 Potassium 3.9 Chloride 107 Carbon Dioxide 22.9 Anion Gap 11.1 H BUN 5 L Creatinine 0.78 Estimated GFR/1.73 m2 >= 60.00 Glucose 127 H Calcium 8.6 Magnesium 2.1 Total Bilirubin 0.6 AST 122 H ALT 148 H Alkaline Phosphatase 87 Total Protein 6.8 Albumin 2.1 L Lipase TSH Urine Color Urine Clarity Urine pH Ur Specific Red[place] Urine Protein Urine Ketones Urine Blood Urine Nitrite Urine Bilirubin Urine Urobilinogen Ur Leukocyte Esterase Urine Glucose Salicylates Urine Opiates Screen Positive A Urine Methadone Screen Negative Acetaminophen Ur Barbiturates Screen Negative Ur Tricyclics Screen Negative Ur Amphetamines Screen Negative U Benzodiazepines Scrn Negative Urine Cocaine Screen Negative Ur THC Screen Positive A Ethyl Alcohol 04/24/19 04/24/19 04/24/19 17:30 15:40 15:40 WBC 11.46 H RBC 4.45 L Hgb 15.2 Hct 43.9 MCV 98.7 H MCH 34.2 H MCHC 34.6 RDW 11.2 L Plt Count 309 MPV 9.6 Immature Gran % 0.3 Neutrophils % 77.2 Lymphocytes % 17.5 Monocytes % 4.7 Eosinophils % 0.1 Basophils % 0.2 Absolute Neutrophils 8.85 H Absolute Lymphocytes 2.01 Absolute Monocytes 0.54 Absolute Eosinophils 0.01 Absolute Basophils 0.02 Sodium Potassium Chloride Carbon Dioxide Anion Gap BUN Creatinine Estimated GFR/1.73 m2 Glucose Calcium Magnesium Total Bilirubin AST ALT Alkaline Phosphatase Total Protein Albumin Lipase TSH Urine Color Yellow Urine Clarity Clear Urine pH 5.5 Ur Specific [place] 1.010 Urine Protein Negative Urine Ketones Negative Urine Blood Negative Urine Nitrite Negative Urine Bilirubin Negative Urine Urobilinogen 0.2 Ur Leukocyte Esterase Negative Urine Glucose Negative Salicylates 5.7 Urine Opiates Screen Urine Methadone Screen Acetaminophen < 2 L Ur Barbiturates Screen Ur Tricyclics Screen Ur Amphetamines Screen U Benzodiazepines Scrn Urine Cocaine Screen Ur THC Screen Ethyl Alcohol 04/24/19 15:40 WBC RBC Hgb Hct MCV MCH MCHC RDW Plt Count MPV Immature Gran % Neutrophils % Lymphocytes % Monocytes % Eosinophils % Basophils % Absolute Neutrophils Absolute Lymphocytes Absolute Monocytes Absolute Eosinophils Absolute Basophils Sodium 142 Potassium 3.7 Chloride 104 Carbon Dioxide 25.3 Anion Gap 12.7 H BUN 6 L Creatinine 0.92 Estimated GFR/1.73 m2 >= 60.00 Glucose 95 Calcium 9.2 Magnesium Total Bilirubin 0.3 AST 204 H ALT 205 H Alkaline Phosphatase 102 Total Protein 8.2 Albumin 4.3 Lipase 42 L TSH 0.30 L Urine Color Urine Clarity Urine pH Ur Specific [place] Urine Protein Urine Ketones Urine Blood Urine Nitrite Urine Bilirubin Urine Urobilinogen Ur Leukocyte Esterase Urine Glucose Salicylates Urine Opiates Screen Urine Methadone Screen Acetaminophen Ur Barbiturates Screen Ur Tricyclics Screen Ur Amphetamines Screen U Benzodiazepines Scrn Urine Cocaine Screen Ur THC Screen Ethyl Alcohol 243.4 [facility] Medical History Acute pancreatitis (Resolved) Alcohol abuse (Chronic) Anxiety, generalized (Chronic) Chronic back pain (Chronic) Depression (Chronic) Heroin abuse (Chronic) Opiate addiction (Chronic) Family History Mother Heart disease Asthma Father No problems noted. Sister Asthma Sister No problems noted. Brother No problems noted. Grandfather Essential hypertension Heart disease Asthma Grandfather Essential hypertension Heart disease Grandmother No problems noted. Grandmother No problems noted. Son No problems noted. Daughter No problems noted. 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
== END 2019-04-25 13:15 | disposition home or self-care (01) | DRG 897 ==
LOC: ER 18:00 → ICU 19:27
PROVIDERS: Admitting Provider Internal Medicine; Emergency Provider Emergency Medicine; PCP Family Medicine; Visit Provider Internal Medicine
DX: F10.221 Alcohol dependence with intoxication delirium (principal); F11.24 Opioid dependence with opioid-induced mood disorder; Y90.8 Blood alcohol level of 240 mg/100 ml or more; R94.6 Abnormal results of thyroid function studies; F32.9 Major depressive disorder, single episode, unspecified; Z56.0 Unemployment, unspecified; F17.210 Nicotine dependence, cigarettes, uncomplicated
CPT/HCPCS: 36415; 80053; 80307; 83690; 96361; 96365; 96366; 96375; 96376; 99223; 99238; 99285; J1650; 80320; 80329; 81003; 83735; 84443; 85025; 99284; J0131; J1630; J1885; J2060; J2405; J3360

== ENCOUNTER 2019-08-30 16:37 | Emergency (ER) | payer MEDICAID, SELFPAY ==
[2019-08-30 16:44] VITALS: BP 128/79; PULSE 68; RESP 15; TEMP 36.4; O2SAT 96
--- NOTE | 2019-08-30 16:48 | ED.GENADUL_ITS ---
Discharge Plan Disposition Patient Disposition: AGAINST MEDICAL ADVICE Discharge Details Chief Complaint: Laceration Clinical Impression: Eloped from emergency department Primary Care Provider: Joel Martinez ED Provider: Jarrod Vaughn Home Meds and New Rx's Prescriptions: No Action quetiapine [Seroquel] 50 mg Tablet 50 RF: 0 Medical Decision Making This is a 33-year-old male with a past medical history of IV drug use, who is currently on methadone, as well as a history of chronic alcoholic pancreatitis. Unfortunately the patient left without being seen. He was in the emergency department and triage area for a total of less than 25 minutes. He was pursued to the parking lot when nursing did go to look for him, he stated that he had a bus to catch and that he was fine. Recommendations at that time by nursing staff were given to the patient that he should come and be seen. He declined. I was not able to evaluate the patient. HPI General Date/Time Provider Initiated Documentation: 08/30/19 16:45 . HPI Narrative: This is a 33-year-old male with a past medical history of IV drug use, who is currently on methadone, as well as a history of chronic alcoholic pancreatitis. Unfortunately the patient left without being seen. He was in the emergency department and triage area for a total of less than 25 minutes. He was pursued to the parking lot when nursing did go to look for him, he stated that he had a bus to catch and that he was fine. Recommendations at that time by nursing staff were given to the patient that he should come and be seen. He declined. I was not able to evaluate the patient. Related Data Home Medications Medication Instructions Recorded Confirmed quetiapine [Seroquel] 50 08/30/19 Allergies Allergy/AdvReac Type Severity Reaction Status Date / Time No Known Allergies Allergy Verified 08/30/19 16:48 General Stated Complaint: Laceration KAVEH: 3 PFSH Medical History (Updated 08/30/19 @ 17:04 by Jarrod Vaughn DO) Acute pancreatitis (Resolved) Alcohol abuse (Chronic) Anxiety, generalized (Chronic) Chronic back pain (Chronic) Depression (Chronic) Heroin abuse (Chronic) Opiate addiction (Chronic) Severe depression (Acute) Social History (Updated 05/01/19 @ 10:29 by Nilda Butcher LPN) Smoking/Tobacco Use Status: Current every day Tobacco Type: cigarettes Alcohol Intake: current Alcohol Intake frequency: 3 or more drinks per day Alcohol type: hard liquor Counseling provided: other Drug use: Daily Substance use type: marijuana Details: pt states that he drinks vodka throughout day Housing: apartment Number of Children: 3 What type of physical activity do you participate in: none Drive intox or ride w/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 Working smoke detector in home: Yes Carbon monox detector in home: Yes Do you feel safe at home: Yes Do you feel safe in your relationship?: Yes Course Vital Signs Vital signs: Vital Signs Temperature 36.4 C L 08/30/19 16:44 Pulse 68 08/30/19 16:44 Respiratory Rate 15 08/30/19 16:44 Blood Pressure 128/79 08/30/19 16:44 Pulse Oximetry 96 08/30/19 16:44 Temperature 36.4 C L 08/30/19 16:44 Temperature Source Tympanic 08/30/19 16:44 Pulse 68 08/30/19 16:44 Respiratory Rate 15 08/30/19 16:44 Respiratory Effort Non-Labored 08/30/19 16:47 Blood Pressure 128/79 08/30/19 16:44 Blood Pressure Position Sitting 08/30/19 16:44 Pulse Oximetry 96 08/30/19 16:44 Oxygen Delivery Method Room Air 08/30/19 16:44 Oxygen Flow Rate 0 08/30/19 16:44 Pain Level 2 08/30/19 16:44
== END 2019-08-30 17:02 | disposition left against medical advice (07) ==
PROVIDERS: Emergency Provider Student in an Organized Health Care Education/Training Program; PCP Family Medicine
DX: Z53.21 Procedure and treatment not carried out due to patient leaving prior to being seen by health care provider (principal)

== ENCOUNTER 2020-01-27 08:48 | Inpatient (IN) | payer MEDICAID, SELFPAY ==
[2020-01-27] VITALS (95 sets, daily range): BP systolic 92–130; BP diastolic 48–77; PULSE 68–112; RESP 8–18; TEMP 36.9–37; O2SAT 91–100
--- NOTE | 2020-01-27 08:45 | RT.EKG_ITS ---
APPROVED REPORT Exam: Resting ECG Patient Location: E HR:67 bpm ECG Measurements Heart Rate 67 AXIS DE 145 P 82 QRSd 88 QRS 72 QT 411 T 57 QTc 433 <Conclusion> Sinus rhythm, rate 67, peaked t waves, inferior J pt elvation. Similar tracing to that of 05/21/18
--- NOTE | 2020-01-27 08:45 | DI.CT_ITS ---
EXAM: CT ABDOMEN PELVIS W CLINICAL HISTORY: epigastric and LUQ pain TECHNIQUE: FINDINGS: CT examination pelvis was performed bolus infusion of 100 cc of Omnipaque 350. Visualized lung bases are clear. There is severe hepatic steatosis. No biliary dilatation. Gallbladder CT normal. Spleen. Pancreas unremarkable except for a couple of small calcifications in the pancreatic head. Adrenals and kidneys appear normal. No urinary tract calcification or obstruction. Unremarkable diamond earance of urinary bladder. Small fat containing left inguinal hernia noted. No significant abdominal or pelvic. Appendix is normal in appearance. There are multiple loops of small bowel with significantly thickened red[place] predominantly left upper q uadrant. There is apparent wall thickening portions of the colon including sigmoid, descending, mathew sverse and ascending colon. Findings are suggestive of colitis and enteritis, please correlate clini umer. No evidence of obstruction. IMPRESSION: Marked small bowel and colonic wall thickening, consistent with enteritis, infectious versus inflamma tory process suggested. Please correlate clinically.
--- NOTE | 2020-01-27 08:47 | W.ED.GENAD ---
Discharge Plan Disposition Patient Disposition: [facility] INPATIENT Condition: Poor Discharge Details Chief Complaint: Abd Prob Clinical Impression: Elevated transaminase level, Alcohol abuse, Colitis, Alcoholic fatty liver, Nausea and vomiting, Hypoglycemia Admit Date/Time: 01/27/20 11:33 Admit Provider: Selvin Tavarez Attending Provider: Selvin Tavarez Primary Care Provider: Joel Martinez ED Provider: Prachi Sharif Discharge Data Discharge Date/Time-TO BE ENTERED AT DEPARTURE: 01/27/20 13:10 Medical Decision Making Patient is a 34-year-old gentleman presenting today with chief complaint of epigastric and left upper quadrant which began at 6 PM last night. States sudden onset. He reports this feels like recurrent bout of his chronic pancreatitis. Possible history significant for depression, delirium, opiate addiction, alcohol abuse, anxiety. Patient is on Suboxone. States that since last night he has had frequent vomiting. Contacted EMS, EMS noted to be hypoglycemic in the 40s. Mentation was normal. They were able to give oral glucagon as well as ODT Zofran. He denies any fevers or chills. States he did have black tarry stools yesterday. States the pain does radiate into his back. States that this feels like his pancreatitis has historically. Patient reports that he drinks alcohol daily, typically takes multiple shots at night. He did not drink any alcohol last night secondary to his pain and vomiting. On exam, patient appears uncomfortable. He is holding an emesis bag. He appears dehydrated. No jaundice. Lungs are clear, normal cardiac exam. Vital signs are stable. Abdomen is significant for tenderness in epigastrium left upper quadrant with guarding and rebound tenderness. No pain elsewhere. No mass. Fingerstick here 63. Glucose is increasing. We will begin aggressive hydration, piggyback this with D5 NS. Will give Ativan. I am wondering if some of this is also due to alcohol withdrawal, the stress the patient nausea. Will give morphine to help with discomfort. Plan for imaging. Contacted by the lab. Patient is elected 4.5. Will add on VBG. CBC reviewed. No significant abnormalities noted. Chemistry significant for 9.8, anion gap of 30.2, glucose of 54, lactate 4.5. T bili and albumin are within normal limits. AST 408, ALT 255. Historically, this is been in the 200 range. Troponin is less than 0.05. Urine is still pending. Patient reports feeling much improved after the IV Ativan. Will increase patients D5NS to 100mL/hr as repeat is now 58. FINDINGS: Lungs: Visualized portions of the lung bases are normal. Liver: Severe fatty infiltration of the liver. Gallbladder and bile ducts: Normal. No calcified stones. No ductal dilation. Pancreas: Calcification in the head of the pancreas. Small. Spleen: Normal. No splenomegaly. Adrenals: Normal. No mass. Kidneys and ureters: Normal. No hydronephrosis. Stomach and bowel: Thickening of the rectosigmoid colon. Thickening of much of the sigmoid colon descending colon splenic flexure transverse colon hepatic flexure and ascending colon. Colitis either infectious versus inflammatory. Pseudomembranous colitis within the differential diagnosis. Fluidfilled stomach Numerous loops of thickened small bowel in the left upper and mid abdomen. Probable enteritis. Appendix: Appendix normal. Intraperitoneal space: No free fluid within the pelvis or within the dependent portions of the peritoneum. Vasculature: Unremarkable. No abdominal aortic aneurysm. Lymph nodes: Unremarkable. No enlarged lymph nodes. Bladder: Unremarkable as visualized. Reproductive: Unremarkable as visualized. Bones/joints: Osseous structures are unremarkable. No fracture. Soft tissues: Unremarkable. IMPRESSION: 1. Thickening of the rectosigmoid colon. Thickening of much of the sigmoid colon descending colon splenic flexure transverse colon hepatic flexure and ascending colon. Colitis either infectious versus inflammatory. Pseudomembranous colitis within the differential diagnosis. 2. Numerous loops of thickened small bowel in the left upper and mid abdomen. Probable enteritis. 3. Severe fatty infiltration of the liver. 4. No free fluid within the pelvis or within the dependent portions of the peritoneum. 5. Appendix normal. Discussed these findings with the patient. Has not had any diarrhea. His pain is much improved. He does feel that he is able to tolerate his Suboxone at this point. We will also place nicotine patch. Spoke with Dr. Tavarez regarding admission for colitis, hypoglycemia, alcohol dependence, transaminitis. He agrees to admission is as I place holding orders. Patient agrees to admission as well. He did speak with recovery collector and does want to be coming from alcohol. Since that there has been any social separates, in particular a spouse that has been wanting him to drink alcohol, that has caused him to continue to relapse over the past year. HPI General Mode of arrival: EMS. Date/Time Provider Initiated Documentation: 01/27/20 09:33. Limitations to Documentation: no limitations. Information obtained by: patient, EMS, RN notes reviewed and old records reviewed. History of Present Illness 34 year old M presents to the emergency department with the chief complaint of abdominal pain, nausea/vomiting, described as severe and similar to prior episodes, with intensity rated at 8. Quality is described as stabbing, and is localized to the abdomen. Patient reports radiation to back. Patient started experiencing this day(s) (last night) and it has been constant. No relieving factors improve symptom(s), No exacerbating factors reported . Patient notes loss of appetite and nausea/vomiting; denies chest pain, cough, fever/chills, headaches, rash and shortness of breath. Patient did receive the following treatments prior to arrival, none Related Data Home Medications Medication Instructions Recorded Confirmed buprenorphine 8 mg-naloxone 2 mg 1 film SL DAILY 11/22/19 01/27/20 sublingual film gabapentin 600 mg PO TID 01/27/20 01/27/20 methocarbamol 500 mg PO PRN PRN 01/27/20 01/27/20 Allergies Allergy/AdvReac Type Severity Reaction Status Date / Time No Known Allergies Allergy Verified 01/27/20 08:56 General KAVEH: 3 Review of Systems Constitutional Constitutional: Reports as per HPI, Denies chills, Denies fatigue, Denies fever(s) and Denies headache(s) ENT Ears, Nose, Mouth, and Throat: Denies headache(s) Cardiovascular Cardiovascular: Reports as per HPI, Denies chest pain and Denies dyspnea Respiratory Respiratory: Reports as per HPI, Denies cough and Denies dyspnea Gastrointestinal Gastrointestinal: Reports as per HPI Genitourinary Genitourinary: Denies system reviewed and no additional complaints, except as documented (patient denies any change in urinary habits) Musculoskeletal Musculoskeletal: Reports as per HPI and Denies back pain Integumentary/Breasts Skin/Breast: Reports as per HPI and Denies rash Neurologic Neurologic: Reports as per HPI and Denies headache(s) Endocrine Endocrine: Denies fatigue [facility], [facility] Medical History Acute pancreatitis (Resolved) Alcohol abuse (Chronic) Anxiety, generalized (Chronic) Chronic back pain (Chronic) Depression (Chronic) Heroin abuse (Chronic) Opiate addiction (Chronic) Severe depression (Acute) Family History Mother Heart disease Asthma Father No problems noted. Sister Asthma Sister No problems noted. Brother No problems noted. Grandfather Essential hypertension Heart disease Asthma Grandfather Essential hypertension Heart disease Grandmother No problems noted. Grandmother No problems noted. Son No problems noted. Daughter No problems noted. 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 Working smoke detector in home: Yes Carbon monox detector in home: Yes Do you feel safe at home: Yes Do you feel safe in your relationship?: Yes Exam Const General: cooperative, disheveled and ill appearing acutely Nutritional Appearance: average body habitus Orientation: alert, awake and oriented x3 HENMT Head: normal to inspection Mouth: mucous membranes dry (appears dry) Resp Effort & Inspection: normal respiratory effort, able to speak in complete sentences and no respiratory distress Auscultation: clear to auscultation bilaterally, no rales, no rhonchi and no wheezes Cardio Rate: regular rate Rhythm: regular rhythm Heart Sounds: S1 normal and S2 normal GI Inspection: normal to inspection, no abdominal wall ecchymosis, non-distended, no visible herniation and no visible pulsation Palpation: soft, no hepatosplenomegaly, no aortic enlargement, not firm, guarding in the LUQ, no hepatomegaly, no hepatosplenomegaly, no hernias, no masses, not rigid, tender in the epigastrum, in the LUQ and with rebound tenderness; Rivers's sign negative and No ascites Percussion: normal to percussion Auscultation: hypoactive bowel sounds Back/Spine/Pelvis Back: no CVA tenderness Skin General skin exam: no rashes or lesions noted Trauma: no lacerations or abrasions Neuro General: patient alert and patient awake Cognition: normal cognition Speech: speech normal Gait: normal gait Psych Appearance: grossly normal and well kempt Mental Status: mental status grossly normal Speech and Movement: speech and movement normal
[2020-01-27] MEDS: Normal Saline 1,000 ML 1000 ML IV (09:42)
[2020-01-27] MEDS: LORazepam 2 MG/ML VIAL 1 MG IVP ×3 (09:43→22:28)
[2020-01-27] MEDS: MORPHine 10 MG/ML VIAL 2 MG IVP (09:43)
[2020-01-27] MEDS: DEXTROSE 5%-0.9% SALINE 1,000 ML 80 ML IV ×2 (10:04→21:14)
[2020-01-27 10:06] LABS: Abs Immature Grans 0.02 10^3/uL (0.0-0.06); Absolute Basophil Count 0.04 10^3/uL (0.0-0.2); Absolute Lymphocyte Count 0.67 10^3/uL (1.2-3.4); Absolute Monocyte Count 0.36 10^3/uL (0.1-0.8); Absolute Neutrophil Count 9.53 10^3/uL (1.2-6.7); Basophils % 0.4; HCT 43.8 % (40.0-50.0); HGB 14.6 g/dL (13.5-17.5); Immature Grans % 0.2; Lymphocytes % 6.3; MCH 33.8 pg (27.0-33.0); MCHC 33.3 % (32.0-36.0); MCV 101.4 fL (80-95); MPV 10.3 fL (8.0-11.0); Monocytes % 3.4; Neutrophils % 89.7; Platelet Count 189 10^3/uL (130-400); RBC 4.32 10^6/uL (4.36-5.78); RDW 12.5 % (11.8-14.1); RDW-SD 47.2 fL; WBC 10.62 10^3/uL (4.4-10.8)
[2020-01-27 10:13] LABS: Lactate 4.5 mmol/L (0.6-1.4)
[2020-01-27] MEDS: Omnipaque 350 MG/ML 100 ML BTL IJ (10:13)
[2020-01-27] MEDS: Normal Saline - Diluent 50 ML VIAL IV (10:14)
[2020-01-27 10:41] LABS: ALT 255 U/L (16-63); AST 408 U/L (15-37); Albumin 4.9 g/dL (3.4-5.0); Alkaline Phosphatase 91 U/L (46-116); Anion Gap 30.2 mmol/L (3-11); BUN 13 mg/dL (7-18); Bilirubin, Total 0.7 mg/dL (0.2-1.0); CO2 9.8 mmol/L (21.0-32.0); Calcium 8.8 mg/dL (8.5-10.1); Chloride 98 mmol/L (98-107); Glucose 54 mg/dL (74-106); Lipase 51 U/L (73-393); Magnesium 2.1 mg/dL (1.8-2.4); Potassium 5.1 mmol/L (3.5-5.1); Sodium 138 mmol/L (136-145); Total Protein 8.3 g/dL (6.4-8.2); Troponin I < 0.05 ng/mL (<0.06)
[2020-01-27 10:58] LABS: BE (Venous) -14.4 mmol/L (-3-3); HCO3 (Venous) 13 mmol/L (22-28); O2 Sat (Venous) 83 % (70-80); TCO2 (Venous) 12 mmol/L (22-29); pCO2 (Venous) 33 mm/Hg (34-47); pH (Venous) 7.22 (7.35-7.45); pO2 (Venous) 51 mm/Hg (28-44)
--- NOTE | 2020-01-27 11:14 | DI.VRAD_ITS ---
PROCEDURE INFORMATION: Exam: CT Abdomen And Pelvis With Contrast Exam date and time: 01/27/2020 8:56 AM Age: 34 years old Clinical indication: Other: Epigastric and luq pain TECHNIQUE: Imaging protocol: Computed tomography of the abdomen and pelvis with intravenous contrast. Radiation optimization: All CT scans at this facility use at least one of these dose optimization techniques: automated exposure control; mA and/or kV adjustment per patient size (includes targeted exams where dose is matched to clinical indication); or iterative reconstruction. Contrast material: OMNIPAQUE 350; Contrast volume: 100 ml; Contrast route: INTRAVENOUS (IV); COMPARISON: CT Abdomen^CAP WITH (Adult) 07/07/2018 12:58 PM FINDINGS: Lungs: Visualized portions of the lung bases are normal. Liver: Severe fatty infiltration of the liver. Gallbladder and bile ducts: Normal. No calcified stones. No ductal dilation. Pancreas: Calcification in the head of the pancreas. Small. Spleen: Normal. No splenomegaly. Adrenals: Normal. No mass. Kidneys and ureters: Normal. No hydronephrosis. Stomach and bowel: Thickening of the rectosigmoid colon. Thickening of much of the sigmoid colon descending colon splenic flexure transverse colon hepatic flexure and ascending colon. Colitis either infectious versus inflammatory. Pseudomembranous colitis within the differential diagnosis. Fluid-filled stomach Numerous loops of thickened small bowel in the left upper and mid abdomen. Probable enteritis. Appendix: Appendix normal. Intraperitoneal space: No free fluid within the pelvis or within the dependent portions of the peritoneum. Vasculature: Unremarkable. No abdominal aortic aneurysm. Lymph nodes: Unremarkable. No enlarged lymph nodes. Bladder: Unremarkable as visualized. Reproductive: Unremarkable as visualized. Bones/joints: Osseous structures are unremarkable. No fracture. Soft tissues: Unremarkable. IMPRESSION: 1. Thickening of the rectosigmoid colon. Thickening of much of the sigmoid colon descending colon splenic flexure transverse colon hepatic flexure and ascending colon. Colitis either infectious versus inflammatory. Pseudomembranous colitis within the differential diagnosis. 2. Numerous loops of thickened small bowel in the left upper and mid abdomen. Probable enteritis. 3. Severe fatty infiltration of the liver. 4. No free fluid within the pelvis or within the dependent portions of the peritoneum. 5. Appendix normal. Dictated and Authenticated by: Fernando Schaffer MD. Ordering:LIVE Velarde MD
--- NOTE | 2020-01-27 11:14 | NUR.NOTE ---
1114 patient speaking with a football coach
[2020-01-27] MEDS: Lactated Ringers 1,000 ML 1000 ML IV (11:49)
[2020-01-27 11:51] LABS: Bilirubin Negative (Negative); Blood Negative (Negative); Clarity Clear (Clear); Glucose Negative (Negative); Ketones 80 mg/dL (Negative); Leukocyte Esterase Negative (Negative); Nitrite Negative (Negative); Specific Gravity >= 1.030 (1.005-1.025); Urobilinogen 0.2 EU/dL (Up TO 0.2); pH 5.5 (5-8)
[2020-01-27 11:55] LABS: Tricyclic Antidepressants Negative (Negative)
[2020-01-27] MEDS: Buprenorphine/Naloxone 8 mg/2 mg FILM 1 EACH SL (11:55)
[2020-01-27 12:02] LABS: Bacteria Rare HPF (Negative); Epithelial Cells Rare HPF (Negative); RBC Negative HPF (0-2); WBC 0-2 HPF (0-5)
[2020-01-27] MEDS: Nicotine 21 MG/24 HR PATCH TD (12:02)
[2020-01-27 12:03] LABS: *AMPHETAMINES SCREEN URINE Negative (Negative); *BARBITURATES SCREEN URINE Negative (Negative); *BENZODIAZEPINES SCREEN URINE Negative (Negative); C & S Indicated? No; Cannabinoids THC POSITIVE (Negative); Casts Negative LPF (Negative); Cocaine Screen,Urine Negative (Negative); Crystals Negative HPF (Negative); METHADONE URINE SCREEN Negative (Negative); Mucus Negative (Negative); OPIATES URINE SCREEN POSITIVE (Negative)
[2020-01-27] MEDS: PHENobarbital 130 MG/ML VIAL 60 MG IVP (14:11)
[2020-01-27] MEDS: Normal Saline Flush 10 ML SYR IVP ×3 (14:12→19:59)
--- NOTE | 2020-01-27 15:26 | HPE_ITS ---
Date of service: 01/27/20 Time of Service: 15:26 Assessment and Plan Assessment and plan (1) Colitis: Status: Acute Assessment and plan: CT findings of rectosigmoid colitis / enteritis also noted. Inflammatory vs infectious. C. Diff possibly. C. Diff screening pending. IV fluids. Pain control. No elevated WBC count, F/C. Elevated Lactate; repeat pending. Holding off on antibiotics for now pending C.Diff results and whether there is improvement with fluids or not. Toradol prn for pain. Watch for GI bleeding. (2) Hypoglycemia: Status: Acute Assessment and plan: Low normal. + ketotic breath and urine ketones Receiving D5 NS at 80ml/hr. Finger stick glucose Q4H until stabilizes. (3) Severe depression: Status: Acute Assessment and plan: Not currently on antidepressant. Treats with Etoh. (4) Opiate addiction: Status: Chronic Assessment and plan: Cont Suboxone. Qualifiers: Substance use status: with opioid-induced mood disorder Qualified Code(s): F11.24 - Opioid dependence with opioid-induced mood disorder (5) Alcohol abuse: Status: Chronic Assessment and plan: Withdrawal precautions; CIWA monitoring. Phenobarbital loading dose 10mg/kg; 60mg administered. PRN lorazepam for CIWA scoring. Thiamine received in ED; continue daily. Continuous cardiac monitoring. (6) Elevated transaminase level: Status: Acute Assessment and plan: Chronic d/t Etoh abuse. + fatty liver. Monitor. Avoid acetaminophen. History of Present Illness History of Present Illness Chief Complaint: abdominal pain Narrative: This is a 34 yo male with a PMH of chronic pancreatitis, Etoh and substance abuse, alcoholic fatty liver / hepatitis. He presented with LUQ and epigastric pain that came on suddenly the evening befo re admission. + nauseam emesis, diaphoresis. Pain described as stabbing and radiating to his back. It feeks like his previous episodes of acute pancreatitis. Yesterday, he did have watery stools that he described as black but no ongoing diarrhea today. No hematemesis. He drinks alcohol daily and his last drink was at 4 PM the day before presentation. No F/C. CIWA score in the ED was 18. CT abd/pelvis showed evidence of colitis; rectosigmoid colon. Pancreas appeared normal. Urine ketones +. Serum glucose 63. Review of Systems All systems reviewed & are unremarkable except as noted in HPI and below PFSH Medical History Acute pancreatitis (Resolved) Alcohol abuse (Chronic) Anxiety, generalized (Chronic) Chronic back pain (Chronic) Depression (Chronic) Heroin abuse (Chronic) Opiate addiction (Chronic) Severe depression (Acute) Family History Mother Heart disease Asthma Father No problems noted. Sister Asthma Sister No problems noted. Brother No problems noted. Grandfather Essential hypertension Heart disease Asthma Grandfather Essential hypertension Heart disease Grandmother No problems noted. Grandmother No problems noted. Son No problems noted. Daughter No problems noted. 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 Working smoke detector in home: Yes Carbon monox detector in home: Yes Do you feel safe at home: Yes Do you feel safe in your relationship?: Yes Meds Home Medications and Allergies Home Medications Medication Instructions Recorded Confirmed Type buprenorphine 8 mg-naloxone 2 mg 1 film SL DAILY 11/22/19 01/27/20 History sublingual film gabapentin 600 mg PO TID 01/27/20 01/27/20 History methocarbamol 500 mg PO PRN PRN 01/27/20 01/27/20 History Allergies Allergy/AdvReac Type Severity Reaction Status Date / Time No Known Allergies Allergy Verified 01/27/20 08:56 Exam Const General: cooperative and acute distress mild Nutritional Appearance: average body habitus Orientation: alert and oriented x3 HENMT Head: normal to inspection and normocephalic Neck Neck: normal visual inspection and full ROM Resp Effort & Inspection: normal respiratory effort Auscultation: clear to auscultation bilaterally Cardio Jugular venous pressure: no JVD Rate: regular rate Rhythm: regular rhythm Heart Sounds: S1 normal and S2 normal GI Inspection: normal to inspection Palpation: soft and tender (epigastric and LUQ. No guarding/rebound.) Auscultation: hypoactive bowel sounds Skin General skin exam: no rashes or lesions noted Neuro General: patient alert, patient oriented x3 and moves all extremities Cognition: normal cognition Speech: speech normal Extrem General: no clubbing, cyanosis or edema Psych Appearance: grossly normal Mental Status: mental status grossly normal Speech and Movement: speech and movement normal Mood: congruent mood Affect: blunted Attitude: cooperative Results Labs Result diagrams: 01/27/20 10:00 01/27/20 10:00 Labs: Laboratory Results - last 24 hr 01/27/20 01/27/20 01/27/20 10:00 10:00 10:00 WBC 10.62 RBC 4.32 L Hgb 14.6 Hct 43.8 MCV 101.4 H MCH 33.8 H MCHC 33.3 RDW 12.5 Plt Count 189 MPV 10.3 Immature Gran % 0.2 Neutrophils % 89.7 Lymphocytes % 6.3 Monocytes % 3.4 Eosinophils % 0.0 Basophils % 0.4 Absolute Neutrophils 9.53 H Absolute Lymphocytes 0.67 L Absolute Monocytes 0.36 Absolute Eosinophils 0.00 Absolute Basophils 0.04 VBG pH VBG pCO2 VBG pO2 VBG HCO3 VBG Total CO2 VBG O2 Saturation VBG Base Excess Sodium 138 Potassium 5.1 Chloride 98 Carbon Dioxide 9.8 L Anion Gap 30.2 H BUN 13 Creatinine 1.00 Estimated GFR/1.73 m2 >= 60.00 Glucose 54 L Lactate 4.5 H* Calcium 8.8 Magnesium 2.1 Total Bilirubin 0.7 AST 408 H ALT 255 H Alkaline Phosphatase 91 Troponin I < 0.05 Total Protein 8.3 H Albumin 4.9 Lipase 51 Urine Color Urine Clarity Urine pH Ur Specific [place] Urine Protein Urine Ketones Urine Blood Urine Nitrite Urine Bilirubin Urine Urobilinogen Ur Leukocyte Esterase Urine RBC Urine WBC Ur Epithelial Cells Urine Crystals Urine Bacteria Urine Casts Urine Mucus Ur Culture Indicated? Urine Glucose Urine Opiates Screen Urine Methadone Screen Ur Barbiturates Screen Ur Tricyclics Screen Ur Amphetamines Screen U Benzodiazepines Scrn Urine Cocaine Screen Ur THC Screen 01/27/20 01/27/20 01/27/20 10:55 11:15 11:15 WBC RBC Hgb Hct MCV MCH MCHC RDW Plt Count MPV Immature Gran % Neutrophils % Lymphocytes % Monocytes % Eosinophils % Basophils % Absolute Neutrophils Absolute Lymphocytes Absolute Monocytes Absolute Eosinophils Absolute Basophils VBG pH 7.22 L VBG pCO2 33 L VBG pO2 51 H VBG HCO3 13 L VBG Total CO2 12 L VBG O2 Saturation 83 H VBG Base Excess -14.4 L Sodium Potassium Chloride Carbon Dioxide Anion Gap BUN Creatinine Estimated GFR/1.73 m2 Glucose Lactate Calcium Magnesium Total Bilirubin AST ALT Alkaline Phosphatase Troponin I Total Protein Albumin Lipase Urine Color Yellow Urine Clarity Clear Urine pH 5.5 Ur Specific [place] >= 1.030 H Urine Protein 30 H Urine Ketones 80 H Urine Blood Negative Urine Nitrite Negative Urine Bilirubin Negative Urine Urobilinogen 0.2 Ur Leukocyte Esterase Negative Urine RBC Negative Urine WBC 0-2 Ur Epithelial Cells Rare Urine Crystals Negative Urine Bacteria Rare Urine Casts Negative Urine Mucus Negative Ur Culture Indicated? No Urine Glucose Negative Urine Opiates Screen Positive A Urine Methadone Screen Negative Ur Barbiturates Screen Negative Ur Tricyclics Screen Negative Ur Amphetamines Screen Negative U Benzodiazepines Scrn Negative Urine Cocaine Screen Negative Ur THC Screen Positive A Last Vital Signs Temp 37.0 C 01/27/20 13:38 Pulse 79 01/27/20 14:16 Resp 11 L 01/27/20 14:16 BP 98/63 L 01/27/20 14:16 Pulse Ox 93 L 01/27/20 14:16
[2020-01-27] MEDS: LORazepam 2 MG/ML VIAL IVP ×2 (15:30→20:24)
[2020-01-27] MEDS: MAGNESIUM SULFATE 8.12 MEQ, MULTIVITAMIN 10 ML, THIAMINE 100 MG, FOLIC ACID 1 MG in Nor... 169 MG IV (15:58)
[2020-01-27 16:06] LABS: Lactate 1.1 mmol/L (0.6-1.4)
[2020-01-27] MEDS: Heparin 5,000 UNITS/ML VIAL 5000 UNITS SC (16:31)
[2020-01-27] MEDS: Gabapentin 600 MG TAB PO (19:58)
[2020-01-28] VITALS (43 sets, daily range): BP systolic 98–123; BP diastolic 63–98; PULSE 57–91; RESP 9–22; TEMP 36.4–36.6; O2SAT 95–100
[2020-01-28] MEDS: Thiamine 100 MG TAB PO (08:03)
[2020-01-28] MEDS: Gabapentin 600 MG TAB PO ×2 (08:03→14:07)
[2020-01-28] MEDS: Heparin 5,000 UNITS/ML VIAL 5000 UNITS SC ×2 (08:03→16:05)
[2020-01-28] MEDS: Buprenorphine/Naloxone 8 mg/2 mg FILM 1 EACH SL (08:04)
[2020-01-28 08:12] LABS: ALT 146 U/L (16-63); AST 126 U/L (15-37); Albumin 3.6 g/dL (3.4-5.0); Alkaline Phosphatase 65 U/L (46-116); Anion Gap 9.6 mmol/L (3-11); BUN 8 mg/dL (7-18); Bilirubin, Total 1.1 mg/dL (0.2-1.0); CO2 24.4 mmol/L (21.0-32.0); CREATININE 0.91 mg/dL (0.70-1.30); Chloride 103 mmol/L (98-107); Glucose 160 mg/dL (74-106); Potassium 3.9 mmol/L (3.5-5.1); Sodium 137 mmol/L (136-145); Total Protein 6.3 g/dL (6.4-8.2)
[2020-01-28] MEDS: Normal Saline Flush 10 ML SYR IVP ×5 (08:14→16:06)
[2020-01-28] MEDS: LORazepam 2 MG/ML VIAL IVP ×3 (08:15→14:07)
[2020-01-28] MEDS: Ketorolac 30 MG/ML VIAL IVP ×2 (08:15→14:07)
[2020-01-28 08:18] LABS: COVID-19 RT-PCR UVMMC Result Negative (Negative)
[2020-01-28 08:33] LABS: Abs Immature Grans 0.02 10^3/uL (0.0-0.06); Absolute Basophil Count 0.01 10^3/uL (0.0-0.2); Absolute Eosinophil Count 0.07 10^3/uL (0.0-0.7); Absolute Lymphocyte Count 1.89 10^3/uL (1.2-3.4); Absolute Monocyte Count 0.62 10^3/uL (0.1-0.8); Basophils % 0.1; Eosinophils % 0.9; HCT 37.8 % (40.0-50.0); HGB 13.2 g/dL (13.5-17.5); Immature Grans % 0.3; Lymphocytes % 24.8; MCH 34.9 pg (27.0-33.0); MCHC 34.9 % (32.0-36.0); MPV 10.1 fL (8.0-11.0); Monocytes % 8.1; Neutrophils % 65.8; Platelet Count 182 10^3/uL (130-400); RBC 3.78 10^6/uL (4.36-5.78); RDW 12.3 % (11.8-14.1); RDW-SD 45.3 fL; WBC 7.61 10^3/uL (4.4-10.8)
--- NOTE | 2020-01-28 09:06 | PHA.REVIEW ---
Pharmacy Admission Review - Admission Clinical Review (Last Reviewed 01/27/20 @ 15:36 by Selvin Tavarez MD) Colitis (Acute) Alcoholic fatty liver (Acute) Nausea and vomiting (Acute) Hypoglycemia (Acute) Severe depression (Acute) Elevated transaminase level (Acute) No Known Allergies Allergy (Verified 01/27/20 08:56) Height 5 ft 6 in Weight 63.93 kg - Comments Comments/Follow Ups: Follow CIWA score, withdrawl may level out rather than ramp up. Eating well, slept most of night, will walk today. Scheduled Oxazepam, prn Lorazepam for withdrawl score. Ketorolac IVP, Gabapentin for pain. Suboxone - Renal Dosing Renal Dosing: BUN 8 mg/dL (7-18) 01/28/20 07:45 Creatinine 0.91 mg/dL (0.70-1.30) 01/28/20 07:45 Medications needing adjustments: Reviewed (CrCl~101ml/min) - Anticoagulation Anticoagulation: Hgb 13.2 g/dL (13.5-17.5) L 01/28/20 07:45 Hct 37.8 % (40.0-50.0) L 01/28/20 07:45 Plt Count 182 10^3/uL (130-400) 01/28/20 07:45 Creatinine 0.91 mg/dL (0.70-1.30) 01/28/20 07:45 DVT Prohphylaxis: Reviewed Medications: Heparin Therapeutic Anticoagulation: N/A - Opiate Usage Evaluate Pain Scale/Pains Meds: Reviewed (Pain 01/04-no bowel meds orderd, Ketorolac & Gabpentin) - Relevant Labs Sodium 137 mmol/L (136-145) 01/28/20 07:45 Potassium 3.9 mmol/L (3.5-5.1) D 01/28/20 07:45 Chloride 103 mmol/L (98-107) 01/28/20 07:45 Magnesium 2.1 mg/dL (1.8-2.4) 01/27/20 10:00 Electrolytes, C-Reactive P, ESR: Reviewed (Lytes good, did receive Banana bag x1 on admission, LFT's improved but elevated, Lactate down 4.5 to 1.1) - DM Control DM Control: Glucose 160 mg/dL (74-106) H D 01/28/20 07:45 Finger Stick Blood Glucose 177 Insulin Dosing: N/A - Heart Failure/KY Heart Failure/[place]: Troponin I < 0.05 ng/mL (<0.06) 01/27/20 10:00 EF%, CARLOS's, B-Blockers, Diuretics: N/A - BP Control BP Control: Blood Pressure 115/78 Blood Pressure 123/84 Blood Pressure 106/66 Blood Pressure 106/68 Blood Pressure 103/68 Blood Pressure 102/66 Blood Pressure 103/68 Blood Pressure 98/63 Blood Pressure 101/61 Blood Pressure 121/73 If elevated: N/A - Qtc Review If Elevated: N/A - IV to PO Switch IV Medications: Reviewed (Ketorolac, avoid APAP due to elevated LFT's) - Home Meds Home Med List reviewed: Reviewed Relevent Home Meds Not ordered & why?: Buspar-has Lorazepam for anxiety, Methocarbamol-not needed - Current meds Current Medication Order Review: Reviewed (Does not have Multivit or Folic acid ordered)
[2020-01-28] MEDS: DEXTROSE 5%-0.9% SALINE 1,000 ML 80 ML IV (09:44)
--- NOTE | 2020-01-28 11:21 | INITIAL_ITS ---
- If Service Date Differs Date of service: 01/28/20 Time of Service: 11:21 Care Management Initial Assess REASON FOR HOSPITALIZATION:: Colitis, ETOH withdrawal PAST MEDICAL HISTORY/PAST SURGICAL HISTORY:: Medical History (Updated 04/24/19 @ 20:42 by Miko Lazcano). Acute pancreatitis (Resolved). Alcohol abuse (Chronic). Anxiety, generalized (Chronic). Chronic back pain (Chronic). Depression (Chronic). Heroin abuse (Chronic). Opiate addiction PREVIOUS FUNCTIONAL STATUS/SOCIAL/FAMILY SUPPORTS:: Jose was living with his girlfriend until a recent breakup. He was kicked out of his apartment after she left. Jose is not engage with this CM at the time of assessment. CURRENT FUNCTIONAL STATUS:: Jose is standing at the sink with his back to the door, he is not able to engage at this time. CM attempted to speak with Jose he did not turn around or acknowledge CM in the room. Jose NICHOLAS's are in the high teens and 20's he is being treated with ativan and Serax. CM will attempt to meet with him again when his scores are lower. CM did review paitent with primary nurse. ADVANCE DIRECTIVES:: None on file Has patient been provided with info about the portal/API?: No Did the patient sign up for the portal?: No CODE STATUS:: Full Code INSURANCE COVERAGE / FINANCIAL ISSUES:: Medicaid CURRENT HOME/COMMUNITY SERVICES/EQUIPMENT:: [facility] PRIMARY CARE PHYSICIAN:: POTENTIAL DISCHARGE NEEDS:: Follow up with primary care, last dose letter PATIENT/FAMILY EDUCATION NEEDS:: Discharge education, limitations and follow up plan of care including ask me three and self management. Local resources for housing supports. ANTICIPATED BARRIERS TO DISCHARGE:: Pateint reports to nursing he is now homeless, if he is discharge early during the day he can go to economic services and discuss senior living with them if after hours he will need to contact 211 to assist with senior living. TRANSPORTATION:: Anticipate RCT PLAN:: Jose is currently being treated for colitis and alcohol withdrawal. He may benefit form a referral to retail performance coach and economic services. CM will need to complete an assessment of services when he is engaged and ready to meet with CM.
--- NOTE | 2020-01-28 13:13 | PGE_ITS ---
Date of Service Date of service: 01/28/20 Time of Service: 13:14 Assessment and Plan Assessment and plan (1) Colitis: Status: Acute Assessment and plan: WBC count remains normal No fever. Inflammatory? Infectious? No further stools to check for C.Diff Stable with improvement. (2) Hypoglycemia: Status: Acute Assessment and plan: Resolved with IV D5NS and oral fluid intake. Stop IV fluids. Monitor. (3) Severe depression: Status: Acute Assessment and plan: Currently not on an antidepressant (4) Anxiety, generalized: Status: Chronic Assessment and plan: Heightened with alcohol withdrawal but generally doing well w/o behavioral disturbances or delirium CIWA monitoring with prn Lorazepam Baseline Serax; 15mg po Q6H; change to Q8 hours tomorrow. (5) Alcohol abuse: Status: Chronic Assessment and plan: See anxiety. Subjective Subjective Interval history since last seen: Pt slept well through the night and required to Lorazepam per CIWA scoring until this AM Feels anxious. States he has a generally high anxiety level at baseline and panic attacks. No delirium. No diarrhea; no sample for C.Diff testing has been available. Ongoing discomfort in R abd; improves with IV Toradol. Exam Const General: cooperative and anxious Nutritional Appearance: average body habitus Orientation: alert and oriented x3 Eyes Sclera: sclerae normal Resp Effort & Inspection: normal respiratory effort Auscultation: clear to auscultation bilaterally Cardio Jugular venous pressure: no JVD Rate: regular rate Rhythm: regular rhythm Heart Sounds: S1 normal and S2 normal Neuro General: patient alert, patient oriented x3 and moves all extremities Cognition: normal cognition Speech: speech normal Psych Appearance: grossly normal Speech and Movement: speech and movement normal Mood: anxious mood Affect: blunted Attitude: cooperative Thought Process: normal Thought Content: normal Objective Objective Clinical Data: Abnormal lab results 01/28/20 01/28/20 Range/Units 07:45 07:45 RBC 3.78 L (4.36-5.78) 10^6/uL Hgb 13.2 L (13.5-17.5) g/dL Hct 37.8 L (40.0-50.0) % MCV 100.0 H (80-95) fL MCH 34.9 H (27.0-33.0) pg Glucose 160 H D (74-106) mg/dL Calcium 8.0 L (8.5-10.1) mg/dL Total Bilirubin 1.1 H (0.2-1.0) mg/dL AST 126 H (15-37) U/L ALT 146 H (16-63) U/L Total Protein 6.3 L (6.4-8.2) g/dL Vital Signs Temperature 36.4 C L 01/28/20 07:50 Temperature Source Tympanic 01/28/20 07:50 Pulse 57 L 01/28/20 13:01 Pulse 60 01/28/20 13:01 Respiratory Rate 11 L 01/28/20 13:01 Respiratory Effort Non-Labored 01/28/20 07:50 Respiratory Depth Normal 01/28/20 07:50 Respiratory Pattern Normal 01/28/20 07:50 Blood Pressure 121/74 01/28/20 13:01 Blood Pressure Mean 83 01/28/20 13:01 Blood Pressure Position Supine 01/27/20 13:38 Pulse Oximetry 97 01/28/20 13:01 Oxygen Delivery Method Room Air 01/27/20 15:30 Oxygen Flow Rate 0 01/27/20 15:30 Pain Level 7 01/28/20 09:14 Intake & Output 01/27/20 01/28/20 01/28/20 23:59 11:59 23:59 Intake Total 3580.200 / 4672.200 3253.2 / 3753.2 500 / 3753.2 Output Total 500 / 500 Balance 3580.200 / 4672.200 2753.2 / 3253.2 500 / 3253.2 Weight 63.93 kg Intake: IV 2890.200 / 3982.200 2053.2 / 2053.2 Oral 690 / 690 1200 / 1700 500 / 1700 Output: Urine 500 / 500 Other: Urine Color Yellow Urine Appearance Clear Comment Pt reports history of burning with urination. Urinal available at bedside. Patient voided to ICU room toilet before I could get a measurement on it. The amount above is approximated. Voiding Methods Urinal Laboratory Results WBC 7.61 10^3/uL (4.4-10.8) 01/28/20 07:45 RBC 3.78 10^6/uL (4.36-5.78) L 01/28/20 07:45 Hgb 13.2 g/dL (13.5-17.5) L 01/28/20 07:45 Hct 37.8 % (40.0-50.0) L 01/28/20 07:45 MCV 100.0 fL (80-95) H 01/28/20 07:45 MCH 34.9 pg (27.0-33.0) H 01/28/20 07:45 MCHC 34.9 % (32.0-36.0) 01/28/20 07:45 RDW 12.3 % (11.8-14.1) 01/28/20 07:45 Plt Count 182 10^3/uL (130-400) 01/28/20 07:45 MPV 10.1 fL (8.0-11.0) 01/28/20 07:45 Immature Gran % 0.3 01/28/20 07:45 Neutrophils % 65.8 01/28/20 07:45 Band Neutrophils % Cancelled 01/28/20 06:15 Lymphocytes % 24.8 01/28/20 07:45 Atypical Lymphs % Cancelled 01/28/20 06:15 Monocytes % 8.1 01/28/20 07:45 Eosinophils % 0.9 01/28/20 07:45 Basophils % 0.1 01/28/20 07:45 Metamyelocytes % Cancelled 01/28/20 06:15 Myelocytes % Cancelled 01/28/20 06:15 Promyelocytes % Cancelled 01/28/20 06:15 Other Cells % Cancelled 01/28/20 06:15 Nucleated RBC % Cancelled 01/28/20 06:15 Absolute Neutrophils 5.00 10^3/uL (1.2-6.7) 01/28/20 07:45 Absolute Lymphocytes 1.89 10^3/uL (1.2-3.4) 01/28/20 07:45 Absolute Monocytes 0.62 10^3/uL (0.1-0.8) 01/28/20 07:45 Absolute Eosinophils 0.07 10^3/uL (0.0-0.7) 01/28/20 07:45 Absolute Basophils 0.01 10^3/uL (0.0-0.2) 01/28/20 07:45 RBC Morphology Cancelled 01/28/20 06:15 Polychromasia Cancelled 01/28/20 06:15 Hypochromasia Cancelled 01/28/20 06:15 Poikilocytosis Cancelled 01/28/20 06:15 Basophilic Stippling Cancelled 01/28/20 06:15 Anisocytosis Cancelled 01/28/20 06:15 Microcytosis Cancelled 01/28/20 06:15 Macrocytosis Cancelled 01/28/20 06:15 Spherocytes Cancelled 01/28/20 06:15 Tear Drop Cells Cancelled 01/28/20 06:15 Ovalocytes Cancelled 01/28/20 06:15 Stomatocytes Cancelled 01/28/20 06:15 [place] Bodies Cancelled 01/28/20 06:15 Patricia Cells/Echinocytes Cancelled 01/28/20 06:15 Acanthocytes (Spur) Cancelled 01/28/20 06:15 Schistocytes Cancelled 01/28/20 06:15 VBG pH 7.22 (7.35-7.45) L 01/27/20 10:55 VBG pCO2 33 mm/Hg (34-47) L 01/27/20 10:55 VBG pO2 51 mm/Hg (28-44) H 01/27/20 10:55 VBG HCO3 13 mmol/L (22-28) L 01/27/20 10:55 VBG Total CO2 12 mmol/L (22-29) L 01/27/20 10:55 VBG O2 Saturation 83 % (70-80) H 01/27/20 10:55 VBG Base Excess -14.4 mmol/L (-3-3) L 01/27/20 10:55 Sodium 137 mmol/L (136-145) 01/28/20 07:45 Potassium 3.9 mmol/L (3.5-5.1) D 01/28/20 07:45 Chloride 103 mmol/L (98-107) 01/28/20 07:45 Carbon Dioxide 24.4 mmol/L (21.0-32.0) 01/28/20 07:45 Anion Gap 9.6 mmol/L (3-11) 01/28/20 07:45 BUN 8 mg/dL (7-18) 01/28/20 07:45 Creatinine 0.91 mg/dL (0.70-1.30) 01/28/20 07:45 Estimated GFR/1.73 m2 >= 60.00 (mL/min/1.73m2) 01/28/20 07:45 Glucose 160 mg/dL (74-106) H D 01/28/20 07:45 Lactate 1.1 mmol/L (0.6-1.4) 01/27/20 15:57 Calcium 8.0 mg/dL (8.5-10.1) L 01/28/20 07:45 Magnesium 2.1 mg/dL (1.8-2.4) 01/27/20 10:00 Total Bilirubin 1.1 mg/dL (0.2-1.0) H 01/28/20 07:45 AST 126 U/L (15-37) H 01/28/20 07:45 ALT 146 U/L (16-63) H 01/28/20 07:45 Alkaline Phosphatase 65 U/L (46-116) 01/28/20 07:45 Troponin I < 0.05 ng/mL (<0.06) 01/27/20 10:00 Total Protein 6.3 g/dL (6.4-8.2) L 01/28/20 07:45 Albumin 3.6 g/dL (3.4-5.0) 01/28/20 07:45 Lipase 51 U/L (73-393) 01/27/20 10:00 Urine Color Yellow (Yellow) 01/27/20 11:15 Urine Clarity Clear (Clear) 01/27/20 11:15 Urine pH 5.5 (5-8) 01/27/20 11:15 Ur Specific [place] >= 1.030 (1.005-1.025) H 01/27/20 11:15 Urine Protein 30 mg/dL (Negative) H 01/27/20 11:15 Urine Ketones 80 mg/dL (Negative) H 01/27/20 11:15 Urine Blood Negative (Negative) 01/27/20 11:15 Urine Nitrite Negative (Negative) 01/27/20 11:15 Urine Bilirubin Negative (Negative) 01/27/20 11:15 Urine Urobilinogen 0.2 EU/dL (Up TO 0.2) 01/27/20 11:15 Ur Leukocyte Esterase Negative (Negative) 01/27/20 11:15 Urine RBC Negative HPF (0-2) 01/27/20 11:15 Urine WBC 0-2 HPF (0-5) 01/27/20 11:15 Ur Epithelial Cells Rare HPF (Negative) 01/27/20 11:15 Urine Crystals Negative HPF (Negative) 01/27/20 11:15 Urine Bacteria Rare HPF (Negative) 01/27/20 11:15 Urine Casts Negative LPF (Negative) 01/27/20 11:15 Urine Mucus Negative (Negative) 01/27/20 11:15 Ur Culture Indicated? No 01/27/20 11:15 Urine Glucose Negative mg/dL (Negative) 01/27/20 11:15 Urine Opiates Screen Positive (Negative) A 01/27/20 11:15 Urine Methadone Screen Negative (Negative) 01/27/20 11:15 Ur Barbiturates Screen Negative (Negative) 01/27/20 11:15 Ur Tricyclics Screen Negative (Negative) 01/27/20 11:15 Ur Amphetamines Screen Negative (Negative) 01/27/20 11:15 U Benzodiazepines Scrn Negative (Negative) 01/27/20 11:15 Urine Cocaine Screen Negative (Negative) 01/27/20 11:15 Ur THC Screen Positive (Negative) A 01/27/20 11:15 COVID-19 PCR Negative (Negative) 01/27/20 12:05 Nasopharyn COVID-19 PCR Not Applicable 01/27/20 12:05 Ref Test [facility] 01/27/20 12:05
[2020-01-28] MEDS: Nicotine 14 MG/24 HR PATCH TD (14:33)
--- NOTE | 2020-01-28 17:29 | NUR.NOTE ---
The patient had been sitting in the chair texting when I noted him getting dressed. I went in the room and questioned what his intentions were. The patient states that he is having to leave because his ex-girlfriend found out he is in the hospital and she is breaking into his apartment to take his stuff. I explained to the patient the dangers of leaving without having resolved his pancreatitis and how alcohol withdrawal could be life-threatening if left un-treated. The patient verbalized understanding and states I wish I could stay another day and get better but I have to go. I am not losing my stuff that I have worked so hard for. I called Dr. Tavarez and got no response so I paged him. I called Kelli [facility] Nursing Divisional Human Resources Director and notified her of the patient leaving. Dr. Tavarez arrived and spoke with the patient within 5 min of the text page. He advised the patient of the dangers of leaving and informed him to return immediately if his symptoms worsened. I removed the midline held pressure for 5 min. No bleeding present under gauze after the 5 min. I secured it with tape and gauze. RCT was called and a ride was arraigned for the patient as he did not have a safe ride home. The patient exited the unit at 1740 to wait at the ER entrance. Nursing Note:
== END 2020-01-28 17:42 | disposition left against medical advice (07) | DRG 392 ==
LOC: ER 12:55 → ICU 13:22
PROVIDERS: Emergency Medicine; Admitting Provider Family Medicine; Emergency Provider Physician Assistant; PCP Family Medicine; Visit Provider Family Medicine
DX: K52.9 Noninfective gastroenteritis and colitis, unspecified (principal); F32.9 Major depressive disorder, single episode, unspecified; F11.90 Opioid use, unspecified, uncomplicated; F10.10 Alcohol abuse, uncomplicated; K76.0 Fatty (change of) liver, not elsewhere classified; F41.1 Generalized anxiety disorder; G89.29 Other chronic pain; M54.9 Dorsalgia, unspecified; F17.210 Nicotine dependence, cigarettes, uncomplicated; E16.2 Hypoglycemia, unspecified
CPT/HCPCS: 36410; 36415; 36416; 80053; 80307; 82805; 82962; 83690; 93005; 96361; 96374; 96375; 99223; 99232; 99285; U0003; 74177; 81003; 81015; 83605; 83735; 84484; 85025; 93010; J1644; J1885; J2060; J2270; J2560; J3490; J7042

== ENCOUNTER 2020-02-13 09:19 | Emergency (ER) | payer MEDICAID, SELFPAY ==
[2020-02-13 09:23] VITALS: BP 141/80; PULSE 77; RESP 18; TEMP 36.7; O2SAT 97
--- NOTE | 2020-02-13 09:30 | DI.CT_ITS ---
EXAM: CT ABDOMEN PELVIS W CLINICAL HISTORY: abdominal pain, n/v. TECHNIQUE: Imaging Protocol: Axial computed tomography images with coronal and sagittal reformatted images were created and reviewed CONTRAST MATERIAL: Intravenous: Omnipaque 350 Contrast volume:100 Oral: no COMPARISON: CT CT ABDOMEN PELVIS W from 01/27/2020 FINDINGS: ABDOMEN: Lung Bases: Normal where visualized. Liver: Severe hepatic steatosis.. No measurable mass. Gallbladder and biliary tract: No radiodense calculus or dilation. Pancreas: Normal density, no abnormal calcifications or inflammatory process. Spleen: Normal. Kidneys: Normal size, contour and axis. No radiodense stones or obstructive uropathy. No masses seen. Adrenal glands: No masses seen. Abdominal Aorta: Abdominal portion non-dilated. PELVIS: Bladder: Symmetric distention, no gross wall thickening. Bowel: Limited evaluation of the bowel due to lack of oral contrast and paucity of intra-abdominal fa t. There is no abnormal small or large bowel dilatation. The colon is nearly empty of stool. There is a question of mild colonic wall thickening versus decompression. There is no small bowel wall th ickening. There is no free air or free fluid. Peritoneal cavity: No ascites, collection or mesenteric inflammatory response. Bones: Within normal limits. Reproductive organs: Within normal limits. Lymph nodes: Unremarkable. Impression: Continued or recurrent colonic wall thickening, greatest at the transverse and descending colons. RADIATION DOSE DELIVERED: 595.57mGy.cm Total DLP DATA REPOSITORY: All CT scans at this facility are submitted to the National Radiology Data Registry (NRDR) Dose Index Registry (DIR) with the [employer] (ACR). RADIATION OPTIMIZATION: All CT scans at this facility use at least one of these dose optimization te chniques: automated exposure control; mA and/or kV adjustment per patient size (includes targeted exa ms where dose is matched to clinical indication); or iterative reconstruction.
--- NOTE | 2020-02-13 09:43 | W.ED.GENAD ---
Discharge Plan Disposition Patient Disposition: HOME Condition: Stable Discharge Details Chief Complaint: Abd Prob Clinical Impression: Anxiety, generalized, Nausea and vomiting, Abdominal pain Primary Care Provider: Joel Martinez ED Provider: Alex Avendaño Home Meds and New Rx's Prescriptions: New ondansetron 4 mg tablet,disintegrating 4 mg PO Q8H PRN (Reason: nausea and vomiting) Qty: 30 RF: 0 lorazepam 1 mg tablet 1 mg PO TID PRN (Reason: anxiety) Qty: 14 RF: 0 Continued buprenorphine-naloxone 8-2 mg film 1 film SL DAILY RF: 0 methocarbamol 500 mg tablet 500 mg PO PRN PRNRF: 0 gabapentin 600 mg tablet 600 mg PO TID RF: 0 Discharge Instructions Instructions: Acute Nausea and Vomiting (ED), Abdominal Pain (ED) Additional Instructions: your blood work and cat scan did not show any concerning findings follow up with your primary care provider and [facility] as soon as possible do not drink alcohol or operate heavy machinery if you take the lorazepam return to the emergency department if you feel more ill, have worsening pain or persistent vomit you can take 1000mg tylenol and 600mg ibuprofen every 6 hours for pain as needed Medical Decision Making 34 yo male with hx of opiate abuse on suboxone, alcohol abuse with last drink yesterday, depression, who comes in with cc of abdominal pain and n/v since yesterday. Was admitted beginning of the month for similar symptoms and then left ama. HE states he had been feeling better until yesterday. Denies drug use and denies fevers, chest pain/pressure, dyspnea. He arrives HD stable, does appear anxious. Has soft abdomen with no distention and has tenderness to deep palpation in all quadrants. Suspect alcohol withdrawal vs possible ibs but given his history will evaluate for pancreatitis, hepatitis and also obtain ct to eval for recurrent colitis vs sbo labs show no significant acute abnormality, awaiting ct results. Pt now sleeping in no distress hd stable ct shows mild nonspecific inflammation of descending colon otherwise no acute findings per Dr. Mckeon. He is sleeping on reassessment and has no tenderness. Feel he is appropriate for outpatient management, will d/c with zofran and given I feel partly his symptoms could be from anxiety prn ativan. Stressed f/u with pcp and nekhs and return precautions given Differential Diagnosis Differential Diagnosis: alcohol abuse, colitis, alcohol withdrawal, pancreatitis Medical Records Medical records reviewed: Yes I reviewed the patient's medical records. Imaging Data Radiologic Study: Attestation: I personally reviewed and interpreted this imaging study as follows: Imaging: CT Scan Radiologist's impression: mild nonspecific inflammation of descending colon otherwise no acute changes per dr. mckeon, no longer has any small bowel inflammation Lab Data Lab results reviewed: Yes I reviewed the patient's lab results. HPI General Mode of arrival: ambulatory. Date/Time Provider Initiated Documentation: 02/13/20 09:23. Limitations to Documentation: no limitations. Information obtained by: patient. History of Present Illness 34 year old M presents to the emergency department with the chief complaint of abdominal pain, described as moderate, Patient started experiencing this day(s) (1) and it has been constant. No relieving factors improve symptom(s), No exacerbating factors reported . Patient notes nausea/vomiting. Patient did receive the following treatments prior to arrival, none Related Data Home Medications Medication Instructions Recorded Confirmed buprenorphine 8 mg-naloxone 2 mg 1 film SL DAILY 11/22/19 01/27/20 sublingual film gabapentin 600 mg PO TID 01/27/20 01/27/20 methocarbamol 500 mg PO PRN PRN 01/27/20 01/27/20 lorazepam 1 mg PO TID PRN #14 tab 02/13/20 ondansetron 4 mg PO Q8H PRN #30 tab 02/13/20 Previous Rx's Medication Instructions Recorded lorazepam 1 mg PO TID PRN #14 tab 02/13/20 ondansetron 4 mg PO Q8H PRN #30 tab 02/13/20 Allergies Allergy/AdvReac Type Severity Reaction Status Date / Time No Known Allergies Allergy Verified 02/07/20 14:30 General Stated Complaint: Abd Prob KAVEH: 3 Review of Systems All systems reviewed & are unremarkable except as noted in HPI and below Constitutional Constitutional: Denies chills, Denies fever(s) and Denies weakness ENT Ears, Nose, Mouth, and Throat: Denies change in voice Cardiovascular Cardiovascular: Denies chest pain and Denies dyspnea Respiratory Respiratory: Denies cough and Denies dyspnea Genitourinary Genitourinary: Denies dysuria Neurologic Neurologic: Denies weakness Psychiatric Psychiatric: Denies depression [facility] Medical History (Updated 02/13/20 @ 11:36 by Alex Avendaño MD) Acute pancreatitis (Resolved) Alcohol abuse (Chronic) Anxiety, generalized (Chronic) Chronic back pain (Chronic) Depression (Chronic) Heroin abuse (Chronic) Opiate addiction (Chronic) Severe depression (Acute) Family History Mother Heart disease Asthma Father No problems noted. Sister Asthma Sister No problems noted. Brother No problems noted. Grandfather Essential hypertension Heart disease Asthma Grandfather Essential hypertension Heart disease Grandmother No problems noted. Grandmother No problems noted. Son No problems noted. Daughter No problems noted. Daughter Asthma Social History Smoking/Tobacco Use Status: Current every day Tobacco Type: cigarettes Alcohol Intake: current Alcohol Intake frequency: 3 or more drinks per day Alcohol type: hard liquor Counseling provided: other Drug use: Daily Substance use type: marijuana Details: pt states that he drinks vodka throughout day Housing: apartment Number of Children: 3 What type of physical activity do you participate in: none Drive intox or ride w/intox mechanic driver: No Working smoke detector in home: Yes Carbon monox detector in home: Yes Do you feel safe at home: Yes Do you feel safe in your relationship?: Yes Exam Const General: no acute distress Orientation: alert HENMT Head: normal to inspection Ears: external ears normal General nose exam: external nose normal Mouth: moist mucous membranes Eyes General: appearance normal, both eyes and all related structures Neck Neck: normal visual inspection Resp Effort & Inspection: normal respiratory effort and able to speak in complete sentences Cardio Rate: regular rate GI Palpation: soft Skin General skin exam: no rashes or lesions noted Neuro General: patient alert and patient oriented x3 Extrem General: capillary refill normal Psych Mental Status: mental status grossly normal Course Vital Signs Vital signs: Vital Signs Temperature 36.7 C 02/13/20 09:23 Pulse 77 02/13/20 09:23 Respiratory Rate 18 02/13/20 09:23 Blood Pressure 141/80 H 02/13/20 09:23 Pulse Oximetry 97 02/13/20 09:23 Temperature 36.7 C 02/13/20 09:23 Temperature Source Skin 02/13/20 09:23 Pulse 77 02/13/20 09:23 Respiratory Rate 18 02/13/20 09:23 Blood Pressure 141/80 H 02/13/20 09:23 Blood Pressure Position Sitting 02/13/20 09:23 Pulse Oximetry 97 02/13/20 09:23 Oxygen Delivery Method Room Air 02/13/20 09:23 Oxygen Flow Rate 0 02/13/20 09:23 Pain Level 7 02/13/20 09:23
[2020-02-13] MEDS: Normal Saline 1,000 ML 1000 ML IV (10:04)
[2020-02-13] MEDS: Ondansetron 4 MG/2 ML VIAL IVP (10:05)
[2020-02-13] MEDS: LORazepam 2 MG/ML VIAL IVP (10:06)
[2020-02-13] MEDS: Ketorolac 15 MG/ML VIAL IVP (10:06)
[2020-02-13 10:12] LABS: Abs Immature Grans 0.01 10^3/uL (0.0-0.06); Absolute Basophil Count 0.02 10^3/uL (0.0-0.2); Absolute Eosinophil Count 0.02 10^3/uL (0.0-0.7); Absolute Lymphocyte Count 0.86 10^3/uL (1.2-3.4); Absolute Monocyte Count 0.49 10^3/uL (0.1-0.8); Absolute Neutrophil Count 4.65 10^3/uL (1.2-6.7); Basophils % 0.3; Eosinophils % 0.3; HCT 41.1 % (40.0-50.0); HGB 14.3 g/dL (13.5-17.5); Immature Grans % 0.2; Lymphocytes % 14.2; MCH 34.5 pg (27.0-33.0); MCHC 34.8 % (32.0-36.0); MPV 10.3 fL (8.0-11.0); Monocytes % 8.1; Neutrophils % 76.9; Nucleated RBC 0 %; Platelet Count 148 10^3/uL (130-400); RBC 4.15 10^6/uL (4.36-5.78); RDW 12.8 % (11.8-14.1); RDW-SD 46.7 fL; WBC 6.05 10^3/uL (4.4-10.8)
[2020-02-13 10:24] LABS: PTT Activated 22.7 sec (21.0-31.4); Prothrombin Time 10.5 sec (9.3-11.0)
[2020-02-13 10:26] LABS: ALT 357 U/L (16-63); AST 543 U/L (15-37); Albumin 4.4 g/dL (3.4-5.0); Alkaline Phosphatase 99 U/L (46-116); Anion Gap 13.1 mmol/L (3-11); BUN 7 mg/dL (7-18); Bilirubin, Direct 0.25 mg/dL (0.00-0.20); Bilirubin, Total 0.9 mg/dL (0.2-1.0); CO2 26.9 mmol/L (21.0-32.0); CREATININE 0.84 mg/dL (0.70-1.30); Calcium 9.1 mg/dL (8.5-10.1); Chloride 100 mmol/L (98-107); Glucose 123 mg/dL (74-106); Lipase 222 U/L (73-393); Magnesium 1.9 mg/dL (1.8-2.4); Potassium 3.8 mmol/L (3.5-5.1); Sodium 140 mmol/L (136-145); Total Protein 7.7 g/dL (6.4-8.2)
[2020-02-13] MEDS: Omnipaque 350 MG/ML 100 ML BTL IJ (10:51)
[2020-02-13] MEDS: Normal Saline - Diluent 50 ML VIAL IV (10:52)
--- NOTE | 2020-02-13 12:40 | CMSP_ITS ---
- If Service Date Differs Date of service: 02/13/20 Time of Service: 12:40 Care Management Safety Plan Chief Complaint: Jose is a 34 year old male who originally presents in the emergency department for medical reasons. Once Jose is medically cleared and is about to be discharged, he reports suicidal ideation, telling CM he will kill himself if he is discharged from the hospital. CM will respond to ED to assess patient after patient has been medically cleared and assessed by screener. If screener deems patient meets criteria for psychiatric stabilization CM will facilitate interdepartmental huddle with [facility] screener for safety planning considerations and meet with patient to review [facility] policy and safety plan, establish individual wishes for treatment and maintain patient rights. In the interim; please note safety plan below to guide patient care while aw aiting further assessment in the ED. SAFETY PLAN: 1. Will remain on suicide precautions and in paper clothes. 2. Will remain in room under direct supervision of one-on-one staff at all times provided by [employer], ATIYA, FITNESS AND WELLNESS MANAGER primary special educator. 3. May have paper cups, plates, finger foods as well as a cardboard spoon with which to eat meals. 4. Follow [facility] Management of the Admitted Behavioral Health Patient policy. 5. Comfort bath system only. 6. No personal belongings 7. Visitors: No visitors at this time. 8. Activities: None currently but will be allowed television if moved to Med/Surg. 8. No telephone privileges at this time. 9. Due to VOLUNTARY status, if patient wishes to leave [facility], the [facility] probation worker must be contacted to re-evaluate patient prior to patient exiting the building. If deemed appropriate for inpatient psychiatric care, safety plan will be established with patient, and care team, to adhere to patient goals, identify restrictions based on behavioral status, address nutrition, and determine allowed personal belongings, tools for hygiene and personal care. As well plan will determine level of activity including ambulation, level of supervision, visitors, and determine privileges based on level of acuity, behaviors and level of engagement by patient. DISPOSITION: [facility] is contacted and Malathi, crisis screener, evaluates Jose for safety. Jose denies suicidal ideation during the screening and refuses inpatient alcohol rehab. Jose also speaks with a swimming coach or instructor by telephone. Jose is discharged back to the community with a plan to follow-up with Malathi from [facility] and the swimming coach or instructor tomorrow to address housing and alcohol use issues.
--- NOTE | 2020-02-13 12:41 | NUR.NOTE ---
Nursing Note: Attempted to discharge patient. Patient states he does not want to be discharged because he's homeless and has no way to make meals or anywhere to go. Requested care management to speak with patient prior to discharge. Patient states he can't be discharged so he will just kill myself. provider made aware. Pt was changed into safety attire, all belongings are out of room and secured. CPSO in place, notified.
[2020-02-13 13:10] LABS: *AMPHETAMINES SCREEN URINE Negative (Negative); *BARBITURATES SCREEN URINE POSITIVE (Negative); *BENZODIAZEPINES SCREEN URINE Negative (Negative); Cannabinoids THC POSITIVE (Negative); Cocaine Screen,Urine Negative (Negative); METHADONE URINE SCREEN Negative (Negative); OPIATES URINE SCREEN Negative (Negative)
[2020-02-13 13:14] LABS: Tricyclic Antidepressants Negative (Negative)
[2020-02-13 13:17] LABS: ETHANOL BLOOD < 3.0 mg/dL (<3)
[2020-02-13 13:40] VITALS: BP 130/72; PULSE 74; RESP 14; TEMP 36.8; O2SAT 97
[2020-02-13] MEDS: Buprenorphine/Naloxone 8 mg/2 mg FILM 1 EACH SL (14:51)
[2020-02-13 14:57] VITALS: BP 134/81; PULSE 64; RESP 16; TEMP 36.7; O2SAT 100
== END 2020-02-13 15:02 | disposition home or self-care (01) ==
PROVIDERS: Emergency Provider Emergency Medicine; PCP Family Medicine
DX: R10.12 Left upper quadrant pain (principal); R11.2 Nausea with vomiting, unspecified; F41.8 Other specified anxiety disorders; R45.851 Suicidal ideations; Z59.0 Homelessness; F10.10 Alcohol abuse, uncomplicated; F11.20 Opioid dependence, uncomplicated
CPT/HCPCS: 36415; 80053; 80307; 83690; 96361; 96374; 96375; 99285; 74177; 80320; 81003; 82248; 83735; 85025; 85610; 85730; 99284; J1885; J2060; J2405; J3490

== ENCOUNTER 2020-02-15 19:28 | Emergency (ER) | payer MEDICAID, SELFPAY ==
[2020-02-15 19:22] VITALS: BP 113/64; PULSE 69; RESP 16; TEMP 36.6; O2SAT 100
[2020-02-15] MEDS: Normal Saline 1,000 ML 1000 ML IV (19:45)
[2020-02-15 19:51] LABS: Abs Immature Grans 0.02 10^3/uL (0.0-0.06); Absolute Basophil Count 0.04 10^3/uL (0.0-0.2); Absolute Eosinophil Count 0.04 10^3/uL (0.0-0.7); Absolute Lymphocyte Count 1.62 10^3/uL (1.2-3.4); Absolute Monocyte Count 0.48 10^3/uL (0.1-0.8); Absolute Neutrophil Count 4.89 10^3/uL (1.2-6.7); Basophils % 0.6; Eosinophils % 0.6; HCT 43.4 % (40.0-50.0); HGB 14.9 g/dL (13.5-17.5); Immature Grans % 0.3; Lymphocytes % 22.8; MCH 34.5 pg (27.0-33.0); MCHC 34.3 % (32.0-36.0); MCV 100.5 fL (80-95); MPV 10.3 fL (8.0-11.0); Monocytes % 6.8; Neutrophils % 68.9; Nucleated RBC 0 %; Platelet Count 153 10^3/uL (130-400); RBC 4.32 10^6/uL (4.36-5.78); RDW 12.7 % (11.8-14.1); RDW-SD 47.5 fL; WBC 7.09 10^3/uL (4.4-10.8)
[2020-02-15] MEDS: Pantoprazole 40 MG VIAL IVP (19:51)
[2020-02-15] MEDS: Normal Saline Flush 10 ML SYR IVP (19:52)
[2020-02-15 20:04] LABS: ALT 309 U/L (16-63); AST 376 U/L (15-37); Albumin 4.4 g/dL (3.4-5.0); Alkaline Phosphatase 90 U/L (46-116); Anion Gap 16.7 mmol/L (3-11); BUN 5 mg/dL (7-18); Bilirubin, Total 0.7 mg/dL (0.2-1.0); CO2 24.3 mmol/L (21.0-32.0); Calcium 9.1 mg/dL (8.5-10.1); Chloride 103 mmol/L (98-107); ETHANOL BLOOD 173.7 mg/dL (<3); Glucose 76 mg/dL (74-106); Lipase 113 U/L (73-393); Magnesium 1.9 mg/dL (1.8-2.4); Potassium 3.4 mmol/L (3.5-5.1); Sodium 144 mmol/L (136-145); Total Protein 7.6 g/dL (6.4-8.2)
--- NOTE | 2020-02-15 20:34 | ED.GENADUL_ITS ---
Discharge Plan Disposition [facility] Condition: Fair Discharge Details Clinical Impression: Alcohol abuse, Elevated transaminase level, Nausea and vomiting Primary Care Provider: Joel Martinez ED Provider: Myranda Yoo Home Meds and New Rx's Prescriptions: Continued buprenorphine-naloxone 8-2 mg film 1 film SL DAILY RF: 0 methocarbamol 500 mg tablet 500 mg PO PRN PRNRF: 0 gabapentin 600 mg tablet 600 mg PO TID RF: 0 ondansetron 4 mg tablet,disintegrating 4 mg PO Q8H PRN (Reason: nausea and vomiting) Qty: 30 RF: 0 lorazepam 1 mg tablet 1 mg PO TID PRN (Reason: anxiety) Qty: 14 RF: 0 Discharge Instructions Instructions: Abuse of Alcohol (ED), Acute Nausea and Vomiting (ED) Additional Instructions: Continue usual meds as previously directed Referrals: Joel Martinez DO [Primary Care Provider] - Medical Decision Making 34-year-old male with a past medical history significant for alcohol abuse opioid addiction homeless who returns to the emergency department for reports of nausea vomiting and abdominal pain. He refused an IV by EMS we established 1 here he is given a liter of normal saline. He received Zofran in route to the hospital which resolved his nausea and vomiting. CBC CMP lipase obtained remains with persistent transaminitis but improved since yesterday. His blood alcohol level is 170. He has been resting quietly in his room when I reviewed his labs with him he states that he will not be discharged. He states that he cannot go on living on the street. He states that he will kill himself if I discharge him. He denies any specific plan. He makes it clear that he is only suicidal if I discharge him. Plan is to sober him up and obtain a mental health consult. CPS so initiated. When patient was asked to undress to secure personal belongings per protocol for suicidal patient he denied suicidal ideation. He stated he just wanted a mental health consult because he was hearing voices. Case discussed with Elza Goodrich from mental health who will evaluate patient. Personal belongings removed and patient remains under constant observation. Patient has been medically cleared and mental health screening completed. Recommendations are for protective custody. 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 Medical Records Medical records reviewed: Yes I reviewed the patient's medical records. Lab Data Lab results reviewed: Yes I reviewed the patient's lab results. HPI General Mode of arrival: EMS . Date/Time Provider Initiated Documentation: 02/15/20 19:32 . Limitations to Documentation: altered mental status (Intoxicated) . Information obtained by: patient and old records reviewed (EMS) . HPI Narrative: This is a 34-year-old homeless male known to the emergency department with a history significant for alcohol abuse. He was evaluated in the emergency department yesterday medical screening showed no acute medical condition he refused to leave the emergency department stating that he was now suicidal. There was no specific plan he states he just cannot live this way. He had a mental health evaluation and was ultimately discharged. Tonight he called 911 again complaining of nausea and vomiting. He received ODT Zofran as he refused to allow EMS to start a IV on him. Related Data Home Medications Medication Instructions Recorded Confirmed buprenorphine 8 mg-naloxone 2 mg 1 film SL DAILY 11/22/19 02/15/20 sublingual film gabapentin 600 mg PO TID 01/27/20 02/15/20 methocarbamol 500 mg PO PRN PRN 01/27/20 01/27/20 lorazepam 1 mg PO TID PRN #14 tab 02/13/20 02/15/20 ondansetron 4 mg PO Q8H PRN #30 tab 02/13/20 02/15/20 Previous Rx's Medication Instructions Recorded lorazepam 1 mg PO TID PRN #14 tab 02/13/20 ondansetron 4 mg PO Q8H PRN #30 tab 02/13/20 Allergies Allergy/AdvReac Type Severity Reaction Status Date / Time No Known Allergies Allergy Verified 02/15/20 19:30 General Stated Complaint: Abd Prob KAVEH: 3 Review of Systems Constitutional Constitutional: Denies fever(s) ENT Ears, Nose, Mouth, and Throat: Reports system reviewed and no additional complaints, except as documented Cardiovascular Cardiovascular: Denies chest pain and Denies dyspnea Respiratory Respiratory: Denies cough and Denies dyspnea Gastrointestinal Gastrointestinal: Reports abdominal pain, Denies diarrhea, Reports nausea and Reports vomiting Genitourinary Genitourinary: Reports other (No difficulty urinating) Psychiatric Psychiatric: Reports suicidal ideation and Reports other (Ongoing alcohol abuse) [facility] Medical History Acute pancreatitis (Resolved) Alcohol abuse (Chronic) Anxiety, generalized (Chronic) Chronic back pain (Chronic) Depression (Chronic) Heroin abuse (Chronic) Opiate addiction (Chronic) Severe depression (Acute) Family History Mother Heart disease Asthma Father No problems noted. Sister Asthma Sister No problems noted. Brother No problems noted. Grandfather Essential hypertension Heart disease Asthma Grandfather Essential hypertension Heart disease Grandmother No problems noted. Grandmother No problems noted. Son No problems noted. Daughter No problems noted. Daughter Asthma Social History Smoking/Tobacco Use Status: Current every day Tobacco Type: cigarettes Alcohol Intake: current Alcohol Intake frequency: 3 or more drinks per day Alcohol type: hard liquor Counseling provided: other Drug use: Occasionally Substance use type: marijuana and heroin Details: pt states that he drinks vodka throughout day has not used heroin for years occasional marijuana Housing: apartment Number of Children: 3 What type of physical activity do you participate in: none Drive intox or ride w/intox ambulance driver paramedic: No Working smoke detector in home: Yes Carbon monox detector in home: Yes Do you feel safe at home: Yes Do you feel safe in your relationship?: Yes Exam Const General: disheveled, frail appearing, ill appearing chronically and intoxicated appearing Nutritional Appearance: cachectic Orientation: oriented x3 HENMT Head: normal to inspection, normocephalic and atraumatic Mouth: moist mucous membranes abnormal Resp Effort & Inspection: normal respiratory effort Cardio Rate: regular rate Rhythm: regular rhythm GI Inspection: normal to inspection and non-distended Palpation: soft, not firm, no guarding, no masses and tender (Generalized) Auscultation: normal bowel sounds Neuro General: patient awake and patient oriented x3 Extrem General: normal to inspection, full ROM and no pedal edema Psych Appearance: disheveled Speech and Movement: agitated Mood: angry Affect: blunted Insight: limited Judgment: poor Course Vital Signs Vital signs: Vital Signs Temperature 36.6 C 02/15/20 19:22 Pulse 69 02/15/20 19:22 Respiratory Rate 16 02/15/20 19:22 Blood Pressure 113/64 02/15/20 19:22 Pulse Oximetry 100 02/15/20 19:22 Temperature 36.6 C 02/15/20 19:22 Temperature Source Skin 02/15/20 19:22 Pulse 69 02/15/20 19:22 Respiratory Rate 16 02/15/20 19:22 Respiratory Effort 02/15/20 19:28 Blood Pressure 113/64 02/15/20 19:22 Blood Pressure Position Left Lateral 02/15/20 19:22 Pulse Oximetry 100 02/15/20 19:22 Oxygen Delivery Method Room Air 02/15/20 19:22 Oxygen Flow Rate 0 02/15/20 19:22 Pain Level 8 02/15/20 19:22 Comment 02/15/20 19:22 Lab/Test Results Lab/Test Results: Laboratory Tests Range/Units 02/15/20 02/15/20 19:40 19:40 WBC (4.4-10.8) 10^3/uL 7.09 RBC (4.36-5.78) 10^6/uL 4.32 L Hgb (13.5-17.5) g/dL 14.9 Hct (40.0-50.0) % 43.4 MCV (80-95) fL 100.5 H MCH (27.0-33.0) pg 34.5 H MCHC (32.0-36.0) % 34.3 RDW (11.8-14.1) % 12.7 Plt Count (130-400) 10^3/uL 153 MPV (8.0-11.0) fL 10.3 Immature Gran % 0.3 Neutrophils % 68.9 Lymphocytes % 22.8 Monocytes % 6.8 Eosinophils % 0.6 Basophils % 0.6 Nucleated RBC % % 0 Absolute Neutrophils (1.2-6.7) 10^3/uL 4.89 Absolute Lymphocytes (1.2-3.4) 10^3/uL 1.62 Absolute Monocytes (0.1-0.8) 10^3/uL 0.48 Absolute Eosinophils (0.0-0.7) 10^3/uL 0.04 Absolute Basophils (0.0-0.2) 10^3/uL 0.04 Sodium (136-145) mmol/L 144 Potassium (3.5-5.1) mmol/L 3.4 L Chloride (98-107) mmol/L 103 Carbon Dioxide (21.0-32.0) mmol/L 24.3 Anion Gap (3-11) mmol/L 16.7 H BUN (7-18) mg/dL 5 L Creatinine (0.70-1.30) mg/dL 0.90 Estimated GFR/1.73 m2 (mL/min/1.73m2) >= 60.00 Glucose (74-106) mg/dL 76 Calcium (8.5-10.1) mg/dL 9.1 Magnesium (1.8-2.4) mg/dL 1.9 Total Bilirubin (0.2-1.0) mg/dL 0.7 AST (15-37) U/L 376 H ALT (16-63) U/L 309 H Alkaline Phosphatase (46-116) U/L 90 Total Protein (6.4-8.2) g/dL 7.6 Albumin (3.4-5.0) g/dL 4.4 Lipase (73-393) U/L 113 Ethyl Alcohol (<3) mg/dL 173.7
[2020-02-15 21:12] VITALS: BP 138/78; PULSE 65; RESP 16; TEMP 36.7; O2SAT 98
--- NOTE | 2020-02-15 21:13 | CMSP_ITS ---
- If Service Date Differs Date of service: 02/15/20 Time of Service: 21:14 Care Management Safety Plan Jose is a 34 year old man who presented to the ED with medical issues. He has a history of alcohol and drug use, is homeless and is intoxicated. He was treated and upon discharge stated that if he was discharged, he would kill himself. He was also seen in the ED on 02/13/20 and made the same statement upon discharge. He was seen and released by [facility] at that time. This evening [facility] crisis was contacted and will evaluate when sober. CM will respond to ED to assess patient after patient has been medically cleared and assessed by screener. If screener deems patient meets criteria for psychiatric stabilization CM will facilitate interdepartmental huddle with [facility] screener for safety planning considerations and meet with patient to review [facility] policy and safety plan, establish individual wishes for treatment and maintain patient rights. In the interim; please note safety plan below to guide patient care while awaiting further assessment in the ED. SAFETY PLAN: 1. Will remain on suicide precautions and in paper clothes. 2. Will remain in room under direct supervision of one-on-one staff at all times provided by ATIYA, PROFESSIONAL FEE CODER relay worker. 3. May have paper cups, plates, finger foods as well as a cardboard spoon with which to eat meals. 4. Follow [facility] Management of the Admitted Behavioral Health Patient policy. 5. Comfort bath system only. 6. No personal belongings 7. No visitors. 8. Phone contact - none 9. Due to VOLUNTARY status, if patient wishes to leave [facility], the [facility] ball worker must be contacted to re-evaluate patient prior to patient exiting the building. If deemed appropriate for inpatient psychiatric care, safety plan will be established with patient, and care team, to adhere to patient goals, identify restrictions based on behavioral status, address nutrition, and determine allowed personal belongings, tools for hygiene and personal care. As well plan will determine level of activity including ambulation, level of supervision, visitors, and determine privileges based on level of acuity, behaviors and level of engagement by patient.
[2020-02-15 22:25] VITALS: BP 122/69; PULSE 64; RESP 16; O2SAT 100
--- NOTE | 2020-02-15 22:28 | NUR.NOTE ---
all pt belongings given to police
[2020-02-17 10:28] LABS: TSH 4.89 uIU/mL (0.36-3.74)
== END 2020-02-15 22:30 | disposition home or self-care (01) ==
PROVIDERS: Family Medicine; Emergency Provider Nurse Practitioner Acute Care; PCP Family Medicine
DX: F10.120 Alcohol abuse with intoxication, uncomplicated (principal); R74.0 Nonspecific elevation of levels of transaminase and lactic acid dehydrogenase [LDH]; Y90.6 Blood alcohol level of 120-199 mg/100 ml; R11.2 Nausea with vomiting, unspecified; Z59.0 Homelessness
CPT/HCPCS: 36415; 80053; 83690; 96361; 96374; 99285; 80320; 83735; 85025; 99284

== ENCOUNTER 2020-02-16 06:08 | Inpatient (IN) | payer MEDICAID, SELFPAY ==
[2020-02-16] VITALS (9 sets, daily range): BP systolic 118–138; BP diastolic 69–91; PULSE 59–74; RESP 16–17; TEMP 36.5–37; O2SAT 96–100
--- NOTE | 2020-02-16 06:11 | ED.GENADUL_ITS ---
Discharge Plan Disposition [facility] Condition: Serious Discharge Details Chief Complaint: PsychEval Clinical Impression: Suicidal ideation Admit Date/Time: 02/16/20 11:49 Admit Provider: Selvin Tavarez Attending Provider: Selvin Tavarez Primary Care Provider: Joel Martinez ED Provider: Luis Hill Discharge Data Discharge Date/Time-TO BE ENTERED AT DEPARTURE: 02/16/20 13:10 Medical Decision Making <Arnulfo Junior MD - Last Filed: 02/16/20 21:24> Patient returns to ED after sobering up at corrections. Wants help with his alcohol dependence. Threatens suicide if discharged. Has been here on the in the . He is medically cleared and no further laboratory studies to him is required. CPSO ordered. Mental health contacted. Patient has been screened by mental health. He will be a voluntary psych admission. I have confirmed his dose of Suboxone with [facility]. Will place him on CIWA protocol. Continue his gabapentin. Start multivitamin, thiamine, folic acid. Care management to fill out care plan. If unlikely to be placed today will recommend admission to the transition unit this afternoon. Medical Records Medical records reviewed: Yes I reviewed the patient's medical records. Lab Data Lab results reviewed: Yes I reviewed the patient's lab results. Lab results narrative: Labs from last 2 days unremarkable. Transaminitis which is likely from his drinking. <Luis Hill MD - Last Filed: 02/16/20 11:09> 8:00??care signed out by Dr. Junior. Please see Dr. Junior's documentation regarding initial ED presentation and course. Plan at signout was to follow-up psychiatric placement for disposition. UDS is only test pending. [facility] human services is working on placement. 11:08??patient has remained stable here in the emergency department. UDS reviewed and positive for THC. Notified the patient will not be able to leave facility secondary to COVID-19 testing today. Plan to hospitalize as a hold pending transfer to psychiatric treatment facility. I called and spoke with Dr. Tavarez who will admit the patient. Care transition to Dr. Tavarez at this time. HPI <Arnulfo Junior MD - Last Filed: 02/16/20 21:24> General Mode of arrival: EMS . Date/Time Provider Initiated Documentation: 02/16/20 06:28 . Limitations to Documentation: no limitations . Information obtained by: patient, RN notes reviewed and old records reviewed . HPI Narrative: Patient is transported by EMS from [facility] to ED with complaint of being suicidal. Patient was seen here last night with complaint of continued abdominal pain and vomiting. Laboratory studies remain unchanged. He was treated with Zofran and fluids. At time of discharge she stated at that point that he was suicidal if we discharged him back to the street. He was taken into protective custody because his alcohol level was 170. He has spent the night in corrections. This morning his alcohol by breathalyzer is 0. EMS was called because he is complaining of being suicidal. Patient states as long as he gets help with his drinking problem he will not kill himself. But if we discharge him he will jump in front of a truck or jump off a bridge. Continues to complain of abdominal pain and nausea. Related Data Home Medications Medication Instructions Recorded Confirmed buprenorphine 8 mg-naloxone 2 mg 1 film SL DAILY 11/22/19 02/16/20 sublingual film gabapentin 600 mg PO TID 01/27/20 02/16/20 lorazepam 1 mg PO TID PRN #14 tab 02/13/20 02/16/20 Previous Rx's Medication Instructions Recorded lorazepam 1 mg PO TID PRN #14 tab 02/13/20 Allergies Allergy/AdvReac Type Severity Reaction Status Date / Time No Known Allergies Allergy Verified 02/15/20 19:30 General Stated Complaint: PsychEval KAVEH: 2 Review of Systems <Arnulfo Junior MD - Last Filed: 02/16/20 21:24> Narrative: 04/10 Review of Systems completed and is negative except as stated above in HPI (Systems reviewed: Const, ENT, Resp, CV, GI, , MSK, Skin, Neuro, Psych) PFSH <Arnulfo Junior MD - Last Filed: 02/16/20 21:24> Medical History Alcohol abuse (Chronic) Anxiety, generalized (Chronic) Chronic back pain (Chronic) Depression (Chronic) Opiate addiction (Chronic) Severe depression (Acute) Family History Mother Heart disease Asthma Father No problems noted. Sister Asthma Sister No problems noted. Brother No problems noted. Grandfather Essential hypertension Heart disease Asthma Grandfather Essential hypertension Heart disease Grandmother No problems noted. Grandmother No problems noted. Son No problems noted. Daughter No problems noted. Daughter Asthma Social History Smoking/Tobacco Use Status: Current every day Tobacco Type: cigarettes Alcohol Intake: current Alcohol Intake frequency: 3 or more drinks per day Alcohol type: hard liquor Counseling provided: other Drug use: Occasionally Substance use type: marijuana and heroin Details: pt states that he drinks vodka throughout day has not used heroin for years occasional marijuana Housing: apartment Number of Children: 3 What type of physical activity do you participate in: none Drive intox or ride w/intox flatbed driver: No Working smoke detector in home: Yes Carbon monox detector in home: Yes Do you feel safe at home: Yes Do you feel safe in your relationship?: Yes Exam <Arnulfo Junior MD - Last Filed: 02/16/20 21:24> Narrative Exam Narrative: Vitals: Afebrile with normal vitals and normal room air pulse ox. Const: WDWN male in NAD. HEENT: NC/AT. Normal facial exam. Eyes: Normal conjunctiva and sclera. Neck: Supple. Trachea midline. Lungs: Normal respiratory effort. Lungs are clear. Cor: RRR without murmur/gallop. Good radial pulses. GI: Soft. NT/ND. No guarding or rebound. Neuro: A+O x 3. Normal speech, mentation, gait. Cranial nerves II - XII grossly intact. No gross motor or sensory deficit. Ext: No C/C/E. Skin: Warm and dry. Psych: Depressed. Keeps eyes closed during interview. Wants help with detox/rehab and threatens suicide if discharged. Course <Arnulfo Junior MD - Last Filed: 02/16/20 21:24> Vital Signs Vital signs: Respiratory Effort 02/16/20 06:04 Sign Out <Arnulfo Junior MD - Last Filed: 02/16/20 21:24> Sign Out Data: Sign Out Comment: pending psych admission Last updated by Arnulfo Junior MD at 02/16/20 07:32
--- NOTE | 2020-02-16 06:32 | CMSP_ITS ---
- If Service Date Differs Date of service: 02/16/20 Time of Service: 06:33 Care Management Safety Plan Jose is a 34 year old man who presented to the ED stating that he wanted to kill himself. He has a history of alcohol and drug use, and is homeless. He was seen in the ED last night and made the same statement at the time of discharge, associating the SI with being homeless. Per provider, he stated If you send me home I will kill myself. I cant live on the street anymore . At the time he was intoxicated . He was screened by [facility] crisis and then was released into protective custody under [facility]. This morning he was released by the [facility] and returned to the ED. He was also seen in the ED on 02/13/20 and made a similar statement re: SI upon discharge. He was seen and released by [facility] at that time as well. CM will respond to ED to assess patient after patient has been medically cleared and assessed by screener. If screener deems patient meets criteria for psychiatric stabilization CM will facilitate interdepartmental huddle with [facility] screener for safety planning considerations and meet with patient to review [facility] policy and safety plan, establish individual wishes for treatment and maintain patient rights. In the interim; please note safety plan below to guide patient care while awaiting further assessment in the ED. SAFETY PLAN: 1. Will remain on suicide precautions and in paper clothes. 2. Will remain in room under direct supervision of one-on-one staff at all times provided by ATIYA, BLADDER CHANGER tar heater operator. 3. May have paper cups, plates, finger foods as well as a cardboard spoon with which to eat meals. 4. Follow [facility] Management of the Admitted Behavioral Health Patient policy. 5. Comfort bath system only. 6. No personal belongings 7. No visitors. 8. Phone contact - none 9. Due to VOLUNTARY status, if patient wishes to leave [facility], the [facility] lumber yard worker must be contacted to re-evaluate patient prior to patient exiting the building. If deemed appropriate for inpatient psychiatric care, safety plan will be established with patient, and care team, to adhere to patient goals, identify restrictions based on behavioral status, address nutrition, and determine allowed personal belongings, tools for hygiene and personal care. As well plan will determine level of activity including ambulation, level of supervision, visitors, and determine privileges based on level of acuity, behaviors and level of engagement by patient. cc: Dictated by: Melina Hobbs Dictated: 02/15/20 me: [id number] <Electronically signed by Melina Clayton > Date: 2128 Date:
[2020-02-16] MEDS: LORazepam 1 MG TAB PO/SL ×3 (07:41→16:27)
[2020-02-16] MEDS: Buprenorphine/Naloxone 8 mg/2 mg FILM 1 EACH SL (08:34)
[2020-02-16] MEDS: Thiamine 100 MG TAB PO (08:34)
[2020-02-16] MEDS: Multivitamin TAB 1 TAB PO (08:34)
[2020-02-16] MEDS: Folic Acid 1 MG TAB PO (08:34)
[2020-02-16] MEDS: Gabapentin 300 MG CAP 600 MG PO ×2 (08:34→13:39)
[2020-02-16 08:59] LABS: *AMPHETAMINES SCREEN URINE Negative (Negative); *BARBITURATES SCREEN URINE Negative (Negative); *BENZODIAZEPINES SCREEN URINE Negative (Negative); Cannabinoids THC POSITIVE (Negative); Cocaine Screen,Urine Negative (Negative); METHADONE URINE SCREEN Negative (Negative); OPIATES URINE SCREEN Negative (Negative)
[2020-02-16 09:03] LABS: Tricyclic Antidepressants Negative (Negative)
--- NOTE | 2020-02-16 11:17 | CMSP_ITS ---
- If Service Date Differs Date of service: 02/16/20 Time of Service: 11:17 Care Management Safety Plan Chief Complaint: Jose is a 34 year old male who presents in the ED for the third time in the last 4 days. Jose has a history of alcohol and drug use and is currently homeless. He receives services through [facility]. Jose is reporting vague suicidal ideation and expresses a desire to detox from alcohol. He is at [facility] seeking a voluntary placement. Jose was assessed by Elza Miller, [facility] Crisis Screener, earlier this morning and he was found to meet criteria for a voluntary psychiatric hospitalization. A referral is faxed to [facility] for review. All other [facility] are full at this time and not accepting referrals. VOLUNTARY FOR INPATIENT PSYCHIATRIC STABILIZATION. Patient is appropriate in all interactions since arriving at [facility]; Pt has demonstrated appropriate coping and communication skills, has articulated his needs and concerns and is fully engaged during staff interactions. Safety plan has been established with patient, and care team, to adhere to patient goals, identify restrictions based on behavioral status, address nutrition, and determine allowed personal belongings, tools for hygiene and personal care. Determine level of activity including ambulation, level of supervision, visitors, and determine privileges based on behaviors and level of engagement by pt. SAFETY PLAN: 1. Will remain on suicide precautions and in paper clothes. 2. Will remain in room under direct supervision of one-on-one staff at all times provided by [employer]; [employer], [employer] supervisor vat house. 3. May have paper cups, plates, finger foods as well as a cardboard spoon with which to eat meals. 4. Follow [facility] Management of the Admitted Behavioral Health Patient policy. 5. Comfort bath system only while in the ED. Will be allowed to shower with supervision if moved to Med/Surg, if behavior remains appropriate. 6. No personal belongings 7. Visitors-No visitors at this time 8. Activities: Soft tip markers, paper, television if available, and other activities at nursing discretion. 9. Bathroom privileges: While in the ED, must be accompanied by staff. If patient is moved to Med/Surg, he will be allowed to use the bathroom in his room without supervision. 10. Phone: Once a mobile phone is available, patient will be allowed one telephone call to his significant other to let her know he is seeking a voluntary psychiatric placement and will be remaining at [facility] until a placement is secured. 11. Due to VOLUNTARY status, if patient wishes to leave [facility], the [facility] cement storage worker must be contacted to re-evaluate patient prior to patient exiting the building. Patient is currently voluntarily at [facility] and seeking inpatient admission when a bed becomes available. [facility] Frontline Editorial Cartoonist will continue seeking placement. Please contact the [employer] Ski Molder ([phone]) and [facility] Editorial Cartoonist ([phone]) for any needed changes in the Safety Plan. Safety plan has been provided to interdepartmental care team.
--- NOTE | 2020-02-16 11:58 | PDOC.MHCN_ITS ---
Date of service: 02/16/20 Time of Service: 11:58 Mental Health Crisis Note Presenting Issue How did you arrive at the ED and why did you come: Jose arrived to ER via [facility] after disclosing to corrections he wanted to swan dive off a bridge. I told corrections to call for an ambulance and have him brought to [facility]. Precipitating Factors Jose stated to the doctor that he wanted to jump in front of a car or off a bridge. He told this worker he wanted to jump in front of a car or o.d. He deneid to this worker any other thoughts of SI. He is not showing signs of delusions. Disposition BEHAVIOR: Jose is cooperative but seems to be manipulating the system to get his needs met. He is simple in his answers and very linier in his thoughts even though he reported last night he was having hallucinations. EYE CONTACT: Eye contact is avoidant. MOOD: Jose presents as sleepy and reports depression. AFFECT: Jose's affect is flat. APPETITE: Jose reported he has not eaten in days. SLEEP(trouble falling/staying asleep: Jose reported that he is not sleeping well and is tired. Plan Jose is seeking a voluntary admission. [facility] is the only possible to today so all information was faxed to them. Informed career resource technician who will fax hospital information. Signature Clinician's Name/Title: Elza Miller MS, [facility] Emergency Services Clinician
--- NOTE | 2020-02-16 14:06 | HPE_ITS ---
Date of service: 02/16/20 Time of Service: 14:06 Assessment and Plan Assessment and plan (1) Suicidal ideation: Status: Acute Assessment and plan: Stated to ED physician and mental health provider that he would jump off a bridge or throw himself in front of a vehicle if he wasn't admitted and treated. No current SI (2) Colitis: Status: Acute Assessment and plan: No fever, elevated WBC count. bowel wall thickening on CT scans of 01/26 and 02/13/2020: inflammatory? Less likely infectious. Will give prednisone 40 mg now and daily. (3) Alcoholic fatty liver: Status: Acute Assessment and plan: Elevated LFTs; have been elevated with each admission. Encouraging alcohol cessation. (4) Alcohol abuse: Status: Chronic Assessment and plan: CIWA monitoring Serax 10mg Q8H PRN lorazepam Thiamine and folate daily. (5) Heroin abuse: Status: Chronic Assessment and plan: Cont Buprenorphine/Naloxone per home dose. History of Present Illness History of Present Illness Chief Complaint: alcohol withdrawal and SI Narrative: This is a 34 yo male with a h/o alcohol abuse syndrome, alcoholic fatty liver, depression/anxiety opiate addition. He has been sobbering in corrections facility after presenting to the ED on 02/12 and 02/14. He threatened suicide if not admitted. Mental health has evaluated. He is a voluntary admission. He does wish to detox and remain sober. He does c/o abd pain that has improved since presenting to the ED; tolerating small amounts of food. Lipase normal. He reported that he had been vomiting at home earlier in the week. CT abd/pelvis on 02/13/2020 showed recurrent colonic wall thickening , greatest at the transverse and descending colons. AST and ALT elevated at 376 adn 309 respectively. Bilirubin normal. Review of Systems All systems reviewed & are unremarkable except as noted in HPI and below PFSH Medical History Alcohol abuse (Chronic) Anxiety, generalized (Chronic) Chronic back pain (Chronic) Depression (Chronic) Opiate addiction (Chronic) Severe depression (Acute) Family History Mother Heart disease Asthma Father No problems noted. Sister Asthma Sister No problems noted. Brother No problems noted. Grandfather Essential hypertension Heart disease Asthma Grandfather Essential hypertension Heart disease Grandmother No problems noted. Grandmother No problems noted. Son No problems noted. Daughter No problems noted. Daughter Asthma Social History Smoking/Tobacco Use Status: Current every day Tobacco Type: cigarettes Alcohol Intake: current Alcohol Intake frequency: 3 or more drinks per day Alcohol type: hard liquor Counseling provided: other Drug use: Occasionally Substance use type: marijuana and heroin Details: pt states that he drinks vodka throughout day has not used heroin for years occasional marijuana Housing: apartment Number of Children: 3 What type of physical activity do you participate in: none Drive intox or ride w/intox regional otr company driver: No Working smoke detector in home: Yes Carbon monox detector in home: Yes Do you feel safe at home: Yes Do you feel safe in your relationship?: Yes Meds Home Medications and Allergies Home Medications Medication Instructions Recorded Confirmed Type buprenorphine 8 mg-naloxone 2 mg 1 film SL DAILY 11/22/19 02/16/20 History sublingual film gabapentin 600 mg PO TID 01/27/20 02/16/20 History lorazepam 1 mg PO TID PRN #14 tab 02/13/20 02/16/20 Rx Allergies Allergy/AdvReac Type Severity Reaction Status Date / Time No Known Allergies Allergy Verified 02/15/20 19:30 Exam Const General: cooperative and in distress mild Nutritional Appearance: average body habitus Orientation: alert and oriented x3 Eyes General: appearance normal, both eyes and all related structures Conjunctivae: conjunctivae normal Resp Effort & Inspection: normal respiratory effort Auscultation: clear to auscultation bilaterally Cardio Rate: regular rate Rhythm: regular rhythm Heart Sounds: S1 normal and S2 normal Neuro General: moves all extremities Cranial Nerves: CN's II-XI intact bilaterally Cognition: normal cognition Extrem General: no clubbing, cyanosis or edema Psych Appearance: grossly normal Speech and Movement: slowed movement Mood: irritable mood Affect: blunted Attitude: cooperative Thought Process: normal Thought Content: normal Results Labs Labs: Laboratory Results - last 24 hr 02/16/20 08:40 Urine Opiates Screen Negative Urine Methadone Screen Negative Ur Barbiturates Screen Negative Ur Tricyclics Screen Negative Ur Amphetamines Screen Negative U Benzodiazepines Scrn Negative Urine Cocaine Screen Negative Ur THC Screen Positive A Last Vital Signs Temp 37.0 C 02/16/20 13:53 Pulse 74 02/16/20 13:53 Resp 16 02/16/20 13:53 BP 132/85 02/16/20 13:53 Pulse Ox 100 02/16/20 13:53 COVID-19 Screening Have you,or household,traveled outside [place] in last 14 days?: No Had IN PERSON contact w/suspected or confirmed C-19 person: No
[2020-02-16 15:05] LABS: Vitamin B12 1157 pg/mL (193-986)
[2020-02-16] MEDS: Nicotine 7 MG/24 HR PATCH TD (15:54)
[2020-02-16] MEDS: Oxazepam 10 MG CAP PO ×2 (15:54→23:00)
[2020-02-17] VITALS (15 sets, daily range): BP systolic 114–142; BP diastolic 68–98; PULSE 56–85; TEMP 36.5–36.9; O2SAT 98–100
[2020-02-17] LABS: COVID-19 RT-PCR UVMMC Result Negative (Negative)
[2020-02-17] MEDS: Oxazepam 10 MG CAP PO ×4 (06:17→20:17)
[2020-02-17] MEDS: Folic Acid 1 MG TAB PO (08:54)
[2020-02-17] MEDS: Thiamine 100 MG TAB PO (08:54)
[2020-02-17] MEDS: Buprenorphine/Naloxone 8 mg/2 mg FILM 1 EACH SL (08:54)
[2020-02-17] MEDS: Gabapentin 300 MG CAP 600 MG PO (08:54)
[2020-02-17] MEDS: Nicotine 7 MG/24 HR PATCH TD (08:54)
[2020-02-17] MEDS: Multivitamin TAB 1 TAB PO (08:54)
[2020-02-17] MEDS: HYDROmorphone 2 MG/ML VIAL 0.5 MG IVP (08:55)
[2020-02-17] MEDS: LORazepam 1 MG TAB PO/SL ×4 (08:55→20:17)
[2020-02-17] MEDS: Normal Saline Flush 10 ML SYR IVP (08:55)
[2020-02-17 09:09] LABS: Lipase 467 U/L (73-393)
--- NOTE | 2020-02-17 09:26 | W.PM.PROGNOT ---
Date of Service Date of service: 02/17/20 Time of Service: 09:26 Assessment and Plan Assessment and plan (1) Acute alcoholic pancreatitis: Status: Acute Assessment and plan: Sounds the patient is not vomiting allow him to have clear liquids but place him on a low-fat diet. I have ordered antiemetics as well as narcotic analgesics to control his abdominal pain. Patient had an abdominal and pelvic CT scan on admission with IV contrast from February 13, 2020 that showed severe hepatic steatosis but no gallstones and no biliary ductal dilatation and the pancreas showed no calcifications or inflammatory process. If his pancreatitis does not resolve quickly then I will reimage his abdomen with an ultrasound of his pancreas on Wednesday. If he starts throwing up if he has emesis I will make him n.p.o. For now we will start aggressive IV fluid hydration along with analgesics and antiemetics. Qualifiers: Acute pancreatitis complication: unspecified Qualified Code(s): K85.20 - Alcohol induced acute pancreatitis without necrosis or infection (2) Alcohol abuse: Status: Chronic Assessment and plan: See was score this morning is 8 however her last day he has been scoring between 2-7 but has been as high as 15 yesterday morning. He is currently on Serax 10 mg every 8 hours. We will increase this up to 10 mg q6h continue with thiamine and multivitamin supplementation along with PRN lorazepam. (3) Opiate addiction: Status: Chronic Qualifiers: Substance use status: with opioid-induced mood disorder Qualified Code(s): F11.24 - Opioid dependence with opioid-induced mood disorder (4) Severe depression: Status: Chronic Assessment and plan: Patient is not currently on any antidepressants to treat his depression. We will start him on low-dose citalopram while in the hospital. (5) Suicidal ideation: Status: Acute Assessment and plan: Awaiting voluntary placement in a psychiatric bed pending medical clearance and treatment from his pancreatitis and alcohol withdrawal. Subjective Subjective Interval history since last seen: Patient's had some increased abdominal pain since last night. He has been on a clear liquid diet he was diagnosed with a colitis but has a history of pancreatitis. Checked a lipase level this morning was elevated 467. His transaminases are also elevated with an AST of 288 and ALT of 331. Electrolytes and renal function within normal limits. CBC this morning shows no anemia but he has macrocytic changes consistent with his history of alcoholism. He has no leukocytosis. Vital signs are otherwise stable with normal blood pressure and heart rate. As for his alcohol withdrawal he is scoring a CIWA score of 8 this morning. He is receiving program doses of Serax 10 mg every 8 hours as well as thiamine and folic acid and nicotine replacement. He is on Suboxone for his chronic narcotic addiction. Patient remains voluntary admission for suicidal ideation. At present time is not medically cleared for transfer to an inpatient psychiatric bed as he is currently under treatment for acute alcoholic pancreatitis and undergoing treatment for acute alcohol withdrawal. Exam Narrative Exam Narrative: Young male sitting up in bed alert and oriented x3. No hallucinations. Lungs are clear to auscultation Heart is regular rate and rhythm without murmur rub or gallop. Abdomen with active bowel sounds he has voluntary guarding but no rebound tenderness. When I am able to distract him his abdomen is soft but when he is aware and pushing on his abdomen he tightens up his abdominal wall muscles. There is no palpable masses no bruits. Extremities without peripheral cyanosis or edema. Neurologic exam is grossly intact no tremors. Skin is warm and dry not diaphoretic. Objective Objective Clinical Data: Abnormal lab results 02/15/20 02/17/20 Range/Units 19:40 08:52 Lipase 467 H (73-393) U/L Vitamin B12 1157 H (193-986) pg/mL Vital Signs Temperature 36.6 C 02/16/20 19:54 Temperature Source Temporal Artery Scan 02/16/20 19:54 Pulse 68 02/17/20 07:50 Pulse Rhythm Regular 02/17/20 07:55 Respiratory Rate 16 02/16/20 19:54 Respiratory Effort Non-Labored 02/17/20 07:55 Respiratory Depth Normal 02/17/20 07:55 Respiratory Pattern Normal 02/17/20 07:55 Blood Pressure 136/79 02/17/20 07:50 Blood Pressure Mean 93 02/17/20 07:50 Blood Pressure Position Supine 02/16/20 13:53 Pulse Oximetry 99 02/17/20 07:50 Oxygen Delivery Method Room Air 02/16/20 19:54 Oxygen Flow Rate 0 02/16/20 19:54 Pain Level 8 02/17/20 08:00 Intake & Output 02/16/20 02/16/20 02/17/20 11:59 23:59 11:59 Intake Total 118 / 836 718 / 836 Output Total 290 / 1065 775 / 1065 Balance -172 / -229 -57 / -229 Weight 63.503 kg 63.503 kg Intake: Oral 118 / 836 718 / 836 Output: Urine 290 / 1065 775 / 1065 Other: Urine Color Dark Norma Yellow Urine Appearance Clear Clear Urine Odor Strong Normal Voiding Methods Urinal Urinal Laboratory Results Lipase 467 U/L (73-393) H 02/17/20 08:52 Vitamin B12 Cancelled 02/16/20 13:37 Urine Opiates Screen Negative (Negative) 02/16/20 08:40 Urine Methadone Screen Negative (Negative) 02/16/20 08:40 Ur Barbiturates Screen Negative (Negative) 02/16/20 08:40 Ur Tricyclics Screen Negative (Negative) 02/16/20 08:40 Ur Amphetamines Screen Negative (Negative) 02/16/20 08:40 U Benzodiazepines Scrn Negative (Negative) 02/16/20 08:40 Urine Cocaine Screen Negative (Negative) 02/16/20 08:40 Ur THC Screen Positive (Negative) A 02/16/20 08:40 COVID-19 PCR Negative (Negative) 02/16/20 08:00 Nasopharyn COVID-19 PCR Not Applicable 02/16/20 08:00 Ref Test Perform Site [facility] 02/16/20 08:00
[2020-02-17 09:32] LABS: Abs Immature Grans 0.02 10^3/uL (0.0-0.06); Absolute Basophil Count 0.02 10^3/uL (0.0-0.2); Absolute Eosinophil Count 0.04 10^3/uL (0.0-0.7); Absolute Lymphocyte Count 1.38 10^3/uL (1.2-3.4); Absolute Monocyte Count 0.65 10^3/uL (0.1-0.8); Absolute Neutrophil Count 5.73 10^3/uL (1.2-6.7); Basophils % 0.3; Eosinophils % 0.5; HCT 45.7 % (40.0-50.0); HGB 15.7 g/dL (13.5-17.5); Immature Grans % 0.3; Lymphocytes % 17.6; MCH 34.3 pg (27.0-33.0); MCHC 34.4 % (32.0-36.0); MCV 99.8 fL (80-95); MPV 11.4 fL (8.0-11.0); Monocytes % 8.3; Nucleated RBC 0 %; Platelet Count 115 10^3/uL (130-400); RBC 4.58 10^6/uL (4.36-5.78); RDW 12.1 % (11.8-14.1); RDW-SD 44.6 fL; WBC 7.84 10^3/uL (4.4-10.8)
[2020-02-17 09:44] LABS: ALT 331 U/L (16-63); AST 288 U/L (15-37); Albumin 3.7 g/dL (3.4-5.0); Alkaline Phosphatase 89 U/L (46-116); Anion Gap 12.7 mmol/L (3-11); BUN 8 mg/dL (7-18); Bilirubin, Total 0.9 mg/dL (0.2-1.0); CO2 25.3 mmol/L (21.0-32.0); Calcium 8.8 mg/dL (8.5-10.1); Chloride 98 mmol/L (98-107); Glucose 104 mg/dL (74-106); Sodium 136 mmol/L (136-145)
[2020-02-17 09:54] LABS: Potassium 4.5 mmol/L (3.5-5.1)
[2020-02-17] MEDS: Lactated Ringers 1,000 ML 200 ML IV ×3 (11:00→20:28)
--- NOTE | 2020-02-17 11:46 | PDOC.MHCN ---
Date of service: 02/17/20 Time of Service: 11:12 Mental Health Crisis Note Presenting Issue How did you arrive at the ED and why did you come: Client arrived at the ED two days ago with SI. Precipitating Factors Client reports feeling much better than he has been feeling. He reported that they diagnosed him with pancreatitis. Client is happy with this diagnosis because he feels like no one was listening to him when he was saying that he wasn't well. Client is reporting no SI or HI. Client is unsure if he will continue to seek voluntary hospitalization. Client is future orientated and wants supports to help him stay sober when he leaves the hospital. Disposition BEHAVIOR: Client was engaged and cooperative when speaking with this communications writer. EYE CONTACT: Client was unable to see this communications writer when being assessed due to technical difficulties with the hospital device, but this communications writer was able to see client. Client did look at the device although he could not see this communications writer. MOOD: Client appeared happy that a diagnosis was made. AFFECT: Normal APPETITE: Client was able to eat some fruit today, but when he was given a creamy soup, he was in extreme pain. SLEEP(trouble falling/staying asleep: unkown Plan Client will remain at [facility] until medically cleared. production control manager will contact [facility] when he is medically cleared to discuss with him if he feels he is still in need of inpatient treatment. Signature Clinician's Name/Title: Bridget Baca [facility] Emergency Clinician
--- NOTE | 2020-02-17 13:35 | PHACLINREV_ITS ---
Pharmacy Admission Review - Admission Clinical Review (Last Reviewed 02/16/20 @ 14:20 by Selvin Tavarez MD) Acute alcoholic pancreatitis (Acute) Suicidal ideation (Acute) Colitis (Acute) Alcoholic fatty liver (Acute) No Known Allergies Allergy (Verified 02/15/20 19:30) Height 5 ft 6 in Weight 63.503 kg - Renal Dosing Renal Dosing: BUN 8 mg/dL (7-18) 02/17/20 09:12 Creatinine 0.70 mg/dL (0.70-1.30) 02/17/20 09:12 Medications needing adjustments: Reviewed (CRCL ~102ML/MIN) - Anticoagulation Anticoagulation: Hgb 15.7 g/dL (13.5-17.5) 02/17/20 09:12 Hct 45.7 % (40.0-50.0) 02/17/20 09:12 Plt Count 115 10^3/uL (130-400) L 02/17/20 09:12 Creatinine 0.70 mg/dL (0.70-1.30) 02/17/20 09:12 DVT Prohphylaxis: N/A Therapeutic Anticoagulation: N/A - Opiate Usage Evaluate Pain Scale/Pains Meds: N/A - Relevant Labs Sodium 136 mmol/L (136-145) 02/17/20 09:12 Potassium 4.5 mmol/L (3.5-5.1) D 02/17/20 09:12 Chloride 98 mmol/L (98-107) 02/17/20 09:12 - DM Control DM Control: Glucose 104 mg/dL (74-106) 02/17/20 09:12 Insulin Dosing: N/A - BP Control BP Control: Blood Pressure 132/78 Blood Pressure 136/79 If elevated: N/A - Qtc Review If Elevated: N/A - Home Meds Home Med List reviewed: Reviewed (methocarbamol not ordered) - Current meds Current Medication Order Review: Reviewed (spoke with MD re: promethazine, cital opram and QT prolongation. Md will order Qtc measurement if promethazine multiple doses needed)
[2020-02-17] MEDS: Gabapentin 600 MG TAB PO ×2 (14:04→20:17)
[2020-02-17] MEDS: Citalopram 10 MG TAB PO (14:04)
--- NOTE | 2020-02-17 19:39 | CMPROGNOTE_ITS ---
- If Service Date Differs Date of service: 02/17/20 Time of Service: 19:39 Care Management Progress Note S/O: Jose was lying in bed when CM met with him. CM facilitated a zoom meeting with Bridget from [facility] who determined that he is no longer feeling suicidal. He stated that he was feeling suicidal because he felt that he wasn't being heard regarding his medical concerns and he needed help with his withdrawal. Now that he is being medically treated for acute pancreatitis vs colitis. He also feels that he is through the hardest part of alcohol withdrawal. He agreed to speak with a recovery collector, and agreed to starting outpatient services with [facility] upon discharge. CM will contact [facility] once he is ready for discharge to ensure that services can begin. CM paged the recovery collector, who will be reaching out to Jose by phone. Jose is no longer on suicide precautions. CM will continue to follow. A: Jose is a 34 year old male admitted to [facility] on 02/16/20 for alcohol withdrawal. P: Anticipate Jose will return home once medically cleared. He will receive support from a recovery collector, and will begin outpatient services at [facility]. He will be driven home via private vehicle by friends. He will follow up with his PCP and discharge plan of care. CM will continue to follow.
--- NOTE | 2020-02-17 19:39 | PDOC.CMPRO ---
- If Service Date Differs Date of service: 02/17/20 Time of Service: 19:39 Care Management Progress Note S/O: Jose was lying in bed when CM met with him. CM facilitated a zoom meeting with Bridget from [facility] who determined that he is no longer feeling suicidal. He stated that he was feeling suicidal because he felt that he wasn't being heard regarding his medical concerns and he needed help with his withdrawal. Now that he is being medically treated for acute pancreatitis vs colitis. He also feels that he is through the hardest part of alcohol withdrawal. He agreed to speak with a high school football coach, and agreed to starting outpatient services with [facility] upon discharge. CM will contact [facility] once he is ready for discharge to ensure that services can begin. CM paged the high school football coach, who will be reaching out to Jose by phone. Jose is no longer on suicide precautions. CM will continue to follow. A: Jose is a 34 year old male admitted to [facility] on 02/16/20 for alcohol withdrawal. P: Anticipate Jose will return home once medically cleared. He will receive support from a high school football coach, and will begin outpatient services at [facility]. He will be driven home via private vehicle by friends. He will follow up with his PCP and discharge plan of care. CM will continue to follow.
[2020-02-18] MEDS: LORazepam 2 MG/ML VIAL IVP ×2 (00:25→06:26)
[2020-02-18] MEDS: Lactated Ringers 1,000 ML 200 ML IV ×2 (01:28→06:27)
[2020-02-18] MEDS: HYDROmorphone 2 MG/ML VIAL IVP ×2 (06:26→13:04)
[2020-02-18 06:41] VITALS: O2SAT 98
[2020-02-18 08:15] VITALS: BP 147/91; PULSE 72; O2SAT 100
[2020-02-18] MEDS: Folic Acid 1 MG TAB PO (08:40)
[2020-02-18] MEDS: Thiamine 100 MG TAB PO (08:41)
[2020-02-18] MEDS: Buprenorphine/Naloxone 8 mg/2 mg FILM 1 EACH SL (08:41)
[2020-02-18] MEDS: Citalopram 10 MG TAB PO (08:41)
[2020-02-18] MEDS: Multivitamin TAB 1 TAB PO (08:41)
[2020-02-18] MEDS: Gabapentin 600 MG TAB PO ×3 (08:41→19:45)
[2020-02-18] MEDS: Nicotine 7 MG/24 HR PATCH TD (08:42)
[2020-02-18] MEDS: Oxazepam 10 MG CAP PO (08:42)
--- NOTE | 2020-02-18 09:32 | PGE_ITS ---
Date of Service Date of service: 02/18/20 Time of Service: 09:32 Assessment and Plan Assessment and plan (1) Acute alcoholic pancreatitis: Status: Acute Assessment and plan: Trial of solid foods. If he is intolerant of this then we will back off to clear liquids or even make him n.p.o. except ice chips. Continue aggressive IV fluid hydration although I think we can decrease the rate from 200 mL an hour of lactated Ringer's to 100 mL/h. If he tolerates his diet will be able to discontinue IV fluids. Qualifiers: Acute pancreatitis complication: unspecified Qualified Code(s): K85.20 - Alcohol induced acute pancreatitis without necrosis or infection (2) Alcohol abuse: Status: Chronic Assessment and plan: Continue thiamine multivitamin and folic acid supplementation. Increase Serax to 15 mg p.o. 4 times daily. Continue to monitor for withdrawal. Once he gets to the point where he is no longer requiring parenteral Ativan he can be transferred out to the medical/surgical floor. (3) Opiate addiction: Status: Chronic Assessment and plan: Continue his current dose of Suboxone. Hopefully as his pancreatitis improves we can back off the use of Dilaudid. Qualifiers: Substance use status: with opioid-induced mood disorder Qualified Code(s): F11.24 - Opioid dependence with opioid-induced mood disorder (4) Severe depression: Status: Chronic Assessment and plan: Patient is no longer suicidal. [facility] services mental health officer his signed off any need for acute inpatient psychiatric treatment. Upon discharge she will be set up with close outpatient follow-up. I started the patient on citalopram 10 mg daily beginning yesterday. We will give the medication a few days to work before we titrate the dose. (5) Suicidal ideation: Status: Acute Assessment and plan: No longer having suicidal thoughts. Patient be referred to [facility] for outpatient mental health upon discharge Subjective Subjective Interval history since last seen: Patient denies any vomiting or nausea. He has been on clear liquids low-fat diet for his pancreatitis. He would like to try some solid foods today. Still having some epigastric pain which he says is different than his pancreatitis pain. On the put him on some Carafate and Protonix in case he has a alcoholic gastritis. Repeat labs are pending at this time. Apparently lab try to draw him this morning and could not get him and they were going to come back after breakfast. With respect to his alcohol withdrawal he scored a CIWA score of 16 this morning is still requiring Serax. He was given lorazepam 2 mg IV this morning at 6 AM for his high CIWA score. He was also given a milligram of hydromorphone for his pain. Because he still requiring parenteral lorazepam for his withdrawal he is requiring ICU ene toring. I will attempt to advance his diet as tolerated but if he has increased pain or nausea then will back off to clear liquids. May increase his Serax to 15 mg 4 times daily. Exam Narrative Exam Narrative: Alert and oriented person place time circumstance. Skin is nondiaphoretic. Lungs are clear to auscultation. Heart regular rate and rhythm without murmur rub or gallop. Abdomen reveals normal active bowel sounds it soft he does have some voluntary guarding particularly when I palpate in the epigastrium. There is no rebound tenderness. Neurologic exam grossly intact no focal motor or sensory deficits. No visible tremors. Objective Objective Clinical Data: Abnormal lab results 02/17/20 02/17/20 Range/Units 09:12 09:12 MCV 99.8 H (80-95) fL MCH 34.3 H (27.0-33.0) pg Plt Count 115 L (130-400) 10^3/uL MPV 11.4 H (8.0-11.0) fL Anion Gap 12.7 H (3-11) mmol/L AST 288 H (15-37) U/L ALT 331 H (16-63) U/L Vital Signs Temperature 36.9 C 02/17/20 14:43 Temperature Source Temporal Artery Scan 02/17/20 14:43 Pulse 70 02/17/20 20:23 Pulse Rhythm Regular 02/18/20 08:28 Respiratory Rate 16 02/16/20 19:54 Respiratory Effort Non-Labored 02/18/20 08:28 Respiratory Depth Normal 02/18/20 08:28 Respiratory Pattern Normal 02/18/20 08:28 Blood Pressure 142/98 H 02/17/20 20:23 Blood Pressure Mean 107 02/17/20 20:23 Blood Pressure Position Supine 02/16/20 13:53 Pulse Oximetry 98 02/18/20 06:41 Oxygen Delivery Method Room Air 02/16/20 19:54 Oxygen Flow Rate 0 02/16/20 19:54 Pain Level 6 02/17/20 09:55 Intake & Output 02/17/20 02/17/20 02/18/20 11:59 23:59 11:59 Intake Total 3706.666 / 3706.666 2196.667 / 2196.667 Output Total 250 / 3050 2800 / 3050 Balance -250 / 656.666 906.666 / 421.598 8541.667 / 2196.667 Intake: IV 2806.666 / 2806.666 1995.667 / 1995.667 Oral 900 / 900 200 / 200 Output: Urine 250 / 3050 2800 / 3050 Other: Urine Color Yellow Yellow Urine Appearance Clear Clear Clear Urine Odor Normal Normal Voiding Methods Urinal Urinal Laboratory Results WBC 7.84 10^3/uL (4.4-10.8) 02/17/20 09:12 RBC 4.58 10^6/uL (4.36-5.78) 02/17/20 09:12 Hgb 15.7 g/dL (13.5-17.5) 02/17/20 09:12 Hct 45.7 % (40.0-50.0) 02/17/20 09:12 MCV 99.8 fL (80-95) H 02/17/20 09:12 MCH 34.3 pg (27.0-33.0) H 02/17/20 09:12 MCHC 34.4 % (32.0-36.0) 02/17/20 09:12 RDW 12.1 % (11.8-14.1) 02/17/20 09:12 Plt Count 115 10^3/uL (130-400) L 02/17/20 09:12 MPV 11.4 fL (8.0-11.0) H 02/17/20 09:12 Immature Gran % 0.3 02/17/20 09:12 Neutrophils % 73.0 02/17/20 09:12 Lymphocytes % 17.6 02/17/20 09:12 Monocytes % 8.3 02/17/20 09:12 Eosinophils % 0.5 02/17/20 09:12 Basophils % 0.3 02/17/20 09:12 Nucleated RBC % 0 % 02/17/20 09:12 Absolute Neutrophils 5.73 10^3/uL (1.2-6.7) 02/17/20 09:12 Absolute Lymphocytes 1.38 10^3/uL (1.2-3.4) 02/17/20 09:12 Absolute Monocytes 0.65 10^3/uL (0.1-0.8) 02/17/20 09:12 Absolute Eosinophils 0.04 10^3/uL (0.0-0.7) 02/17/20 09:12 Absolute Basophils 0.02 10^3/uL (0.0-0.2) 02/17/20 09:12 Sodium 136 mmol/L (136-145) 02/17/20 09:12 Potassium 4.5 mmol/L (3.5-5.1) D 02/17/20 09:12 Chloride 98 mmol/L (98-107) 02/17/20 09:12 Carbon Dioxide 25.3 mmol/L (21.0-32.0) 02/17/20 09:12 Anion Gap 12.7 mmol/L (3-11) H 02/17/20 09:12 BUN 8 mg/dL (7-18) 02/17/20 09:12 Creatinine 0.70 mg/dL (0.70-1.30) 02/17/20 09:12 Estimated GFR/1.73 m2 >= 60.00 (mL/min/1.73m2) 02/17/20 09:12 Glucose 104 mg/dL (74-106) 02/17/20 09:12 Calcium 8.8 mg/dL (8.5-10.1) 02/17/20 09:12 Total Bilirubin 0.9 mg/dL (0.2-1.0) 02/17/20 09:12 AST 288 U/L (15-37) H 02/17/20 09:12 ALT 331 U/L (16-63) H 02/17/20 09:12 Alkaline Phosphatase 89 U/L (46-116) 02/17/20 09:12 Total Protein 7.0 g/dL (6.4-8.2) 02/17/20 09:12 Albumin 3.7 g/dL (3.4-5.0) 02/17/20 09:12 Lipase 467 U/L (73-393) H 02/17/20 08:52 Vitamin B12 Cancelled 02/16/20 13:37 Urine Opiates Screen Negative (Negative) 02/16/20 08:40 Urine Methadone Screen Negative (Negative) 02/16/20 08:40 Ur Barbiturates Screen Negative (Negative) 02/16/20 08:40 Ur Tricyclics Screen Negative (Negative) 02/16/20 08:40 Ur Amphetamines Screen Negative (Negative) 02/16/20 08:40 U Benzodiazepines Scrn Negative (Negative) 02/16/20 08:40 Urine Cocaine Screen Negative (Negative) 02/16/20 08:40 Ur THC Screen Positive (Negative) A 02/16/20 08:40 COVID-19 PCR Negative (Negative) 02/16/20 08:00 Nasopharyn COVID-19 PCR Not Applicable 02/16/20 08:00 Ref Test [facility] 02/16/20 08:00
[2020-02-18] MEDS: Pantoprazole 40 MG TABCR PO (11:08)
[2020-02-18] MEDS: Sucralfate 1 GM TAB PO ×2 (11:08→17:17)
[2020-02-18] MEDS: Methocarbamol 500 MG TAB PO (11:09)
[2020-02-18 12:15] LABS: Abs Immature Grans 0.01 10^3/uL (0.0-0.06); Absolute Basophil Count 0.02 10^3/uL (0.0-0.2); Absolute Eosinophil Count 0.04 10^3/uL (0.0-0.7); Absolute Lymphocyte Count 1.63 10^3/uL (1.2-3.4); Basophils % 0.3; Eosinophils % 0.7; HCT 41.4 % (40.0-50.0); HGB 14.4 g/dL (13.5-17.5); Immature Grans % 0.2; Lymphocytes % 26.7; MCH 34.7 pg (27.0-33.0); MCHC 34.8 % (32.0-36.0); MCV 99.8 fL (80-95); MPV 11.5 fL (8.0-11.0); Monocytes % 11.5; Neutrophils % 60.6; Nucleated RBC 0 %; Platelet Count 121 10^3/uL (130-400); RBC 4.15 10^6/uL (4.36-5.78); RDW 12.1 % (11.8-14.1)
[2020-02-18 12:27] LABS: ALT 284 U/L (16-63); AST 199 U/L (15-37); Albumin 3.9 g/dL (3.4-5.0); Alkaline Phosphatase 84 U/L (46-116); Anion Gap 9.9 mmol/L (3-11); BUN 4 mg/dL (7-18); Bilirubin, Total 0.7 mg/dL (0.2-1.0); CO2 27.1 mmol/L (21.0-32.0); CREATININE 0.72 mg/dL (0.70-1.30); Calcium 9.3 mg/dL (8.5-10.1); Chloride 103 mmol/L (98-107); Glucose 81 mg/dL (74-106); Lipase 211 U/L (73-393); Potassium 3.7 mmol/L (3.5-5.1); Sodium 140 mmol/L (136-145); Total Protein 7.2 g/dL (6.4-8.2)
[2020-02-18] MEDS: Normal Saline Flush 10 ML SYR IVP (13:30)
[2020-02-18] MEDS: Lactated Ringers 1,000 ML 125 ML IV (13:51)
[2020-02-18] MEDS: LORazepam 1 MG TAB PO/SL (14:45)
--- NOTE | 2020-02-18 16:43 | CMPROGNOTE_ITS ---
- If Service Date Differs Date of service: 02/18/20 Time of Service: 16:43 Care Management Progress Note S/O: CM witnessed Jose walking in the sepulveda independently today. Per report, he did have a high CIWA score of 16 this morning which required IV lorazepam. He remains at ICU level of care today to continue to monitor his withdrawal. Per provider, his diet will be advanced today to see if he can tolerate solid foods. CM will continue to follow. A: Jose is a 34 year old male admitted to [facility] on 02/16/20 for alcohol withdrawal. P: Anticipate Jose will return home once medically cleared. He will receive support from a monomer recovery supervisor, and will begin outpatient services at [facility]. He wi ll be driven home via private vehicle by friends. He will follow up with his PCP and discharge plan of care. CM will continue to follow.
[2020-02-18 17:48] VITALS: O2SAT 100
[2020-02-18 17:49] VITALS: BP 145/94; PULSE 69; O2SAT 100
[2020-02-18 19:42] VITALS: O2SAT 100
[2020-02-18 19:43] VITALS: BP 142/85; PULSE 53
--- NOTE | 2020-02-21 17:50 | W.PM.DS.N ---
Date of service: 02/21/20 Time of Service: 17:51 DS: Diagnosis Discharge Diagnosis (1) Acute alcoholic pancreatitis: Status: Acute (2) Alcohol abuse: Status: Chronic (3) Opiate addiction: Status: Chronic (4) Severe depression: Status: Chronic (5) Suicidal ideation: Status: Resolved Discharge Plan Disposition Patient Disposition: AGAINST MEDICAL ADVICE Condition: Serious Discharge Details Chief Complaint: PsychEval Clinical Impression: Suicidal ideation Reason For Visit: ALCOHOL WITHDRAWAL Admit Date/Time: 02/17/20 09:40 Admit Provider: Selvin Tavarez Attending Provider: Selvin Tavarez Primary Care Provider: Joel Martinez ED Provider: [facility] Hospital Course Hospital Course: Please see Dr. Selvin Tavarez's admission H&P from February 16, 2020 regarding patient's presentation. In summary this 34-year-old male with a past medical history significant for alcoholism and heroin abuse currently on Suboxone therapy also history of depression anxiety disorder had presented emergency department 3 times in the last 4 days and has been homeless since being released from incarceration. Patient had been sobering while incarcerated and now that he is been released from custody is indicated that he wants help with his alcohol dependence and had been to the emergency department 3 times in 4 days and was threatening suicide if he is discharged from the emergency department. He has been a client of [facility] where he receives his Suboxone therapy. Patient was admitted expressly because of the suicidal ideation and a referral to [facility] human services was made. Eventually they deemed that he was of low risk for suicidal intent and indicated that he could be managed as an outpatient. During the interim the patient was complaining of abdominal discomfort and a CT scan of his abdomen pelvis demonstrated colonic wall thickening greatest at the transverse and descending colon suggestive of a colitis. There is no bowel obstruction. CT the pancreas showed normal density with no calcification or acute inflammatory process in biliary tract showed no calculus or dilatation. He does have fatty liver changes. Eventually laboratory evaluation demonstrated evidence of an acute pancreatitis with a lipase of 467 transaminases were elevated with an AST of 288 and ALT of 331. Patient was admitted to the hospital given IV fluids see PSO observer was placed to monitor until [facility] cleared him from any suicidal precautions. Patient was given Serax on a program basis at 10 mg 4 times daily and later increased to 15 mg 4 times daily and was monitored with for withdrawal symptoms with CIWA protocol and was given multivitamin and thiamine and folic acid along with PRN Ativan. Patient's pancreatitis improved and his diet was advanced. However patient became upset that the medications were not prescribed the way he wanted them as prescribed and he left the hospital facility AGAINST MEDICAL ADVICE on the evening of February 18, 2020. Home Meds and New Rx's Prescriptions: No Action gabapentin 600 mg tablet 600 mg PO TID Qty: 270 RF: 3 methocarbamol 500 mg tablet 500 mg PO DAILY PRN (Reason: at first sign of headaches) Qty: 60 RF: 1 sumatriptan succinate 50 mg tablet See Rx Instructions PO .COMPLEX Qty: 20 RF: 3 venlafaxine 75 mg tablet 75 mg PO BID Qty: 60 RF: 3 buprenorphine-naloxone 8-2 mg film 1 film SL DAILY RF: 0 lorazepam 1 mg tablet 1 mg PO TID PRN (Reason: anxiety) Qty: 14 RF: 0 Discharge Instructions Additional Instructions: Patient informed that he may still have additional symptoms of withdrawl. RN told patient to seek medical attention if he is having symptoms that he is unable to control on his own. Activity:: Activity as Tolerated Equipment/Supplies:: No Equipment Needed Diet:: Low Fat Discharge Data Discharge Date/Time-TO BE ENTERED AT DEPARTURE: 02/18/20 20:20 Discharge Comment: Patient escorted out of hospital. DS: Summary Status at Discharge Functional status at discharge: independent ambulation Overall status at discharge: patient is back to baseline Mental Status: mental status grossly normal Speech and Movement: speech and movement normal Mood: congruent mood Affect: normal affect Exam Psych Mental Status: mental status grossly normal Speech and Movement: speech and movement normal Mood: congruent mood Affect: normal affect DS: Data Vitals/I&O Vitals and I&O: Vital Signs Temperature 36.9 C 02/17/20 14:43 Temperature Source Temporal Artery Scan 02/17/20 14:43 Pulse 53 L 02/18/20 19:43 Pulse Rhythm Regular 02/18/20 17:51 Respiratory Rate 16 02/16/20 19:54 Respiratory Effort 02/18/20 20:00 Respiratory Depth Normal 02/18/20 20:00 Respiratory Pattern Normal 02/18/20 20:00 Blood Pressure 142/85 H 02/18/20 19:43 Blood Pressure Mean 95 02/18/20 19:43 Blood Pressure Position Supine 02/16/20 13:53 Pulse Oximetry 100 02/18/20 19:42 Oxygen Delivery Method Room Air 02/16/20 19:54 Oxygen Flow Rate 0 02/16/20 19:54 Pain Level 8 02/18/20 08:00 [facility] Medical History (Updated 02/21/20 @ 17:53 by Miko Lazcano) Alcohol abuse (Chronic) Anxiety, generalized (Chronic) Chronic back pain (Chronic) Depression (Chronic) Family history of schizophrenia (Chronic) Father Migraine with aura (Acute) Opiate addiction (Chronic) Severe depression (Chronic) Family History Mother Heart disease Asthma Father No problems noted. Sister Asthma Sister No problems noted. Brother No problems noted. Grandfather Essential hypertension Heart disease Asthma Grandfather Essential hypertension Heart disease Grandmother No problems noted. Grandmother No problems noted. Son No problems noted. Daughter No problems noted. 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
== END 2020-02-18 20:20 | disposition left against medical advice (07) | DRG 894 ==
LOC: ER 12:03 → ICU 14:29
PROVIDERS: Emergency Medicine; Internal Medicine; Admitting Provider Family Medicine; Emergency Provider Student in an Organized Health Care Education/Training Program; PCP Family Medicine; Visit Provider Family Medicine
DX: F10.239 Alcohol dependence with withdrawal, unspecified (principal); K85.20 Alcohol induced acute pancreatitis without necrosis or infection; F32.2 Major depressive disorder, single episode, severe without psychotic features; R45.851 Suicidal ideations; F11.24 Opioid dependence with opioid-induced mood disorder; F41.1 Generalized anxiety disorder; G89.29 Other chronic pain; M54.9 Dorsalgia, unspecified; F17.210 Nicotine dependence, cigarettes, uncomplicated; K52.9 Noninfective gastroenteritis and colitis, unspecified; K70.0 Alcoholic fatty liver
CPT/HCPCS: 36410; 36415; 80053; 80307; 83690; 87798; 99222; 99233; 99285; NC; U0003; 82607; 84443; 85025; 99284; G0378; J2060

== ENCOUNTER 2020-04-22 12:32 | Inpatient (IN) | payer MEDICAID, SELFPAY ==
--- NOTE | 2020-04-22 13:15 | DI.CT_ITS ---
EXAM: CT ABDOMEN PELVIS W CLINICAL HISTORY: abd pain, vomiting, h/o pancreatitis TECHNIQUE: CT CT ABDOMEN PELVIS W from 02/13/2020 FINDINGS: CT examination of the abdomen and pelvis was performed with bolus infusion of 100 cc of Omnipaque 350 . Images obtained through the lung bases are unremarkable except for a 4 millimeter in diameter nonca lcified left lower lobe intrapulmonary nodule.. There is severe hepatic steatosis without evidence of focal mass.. Spleen is unremarkable in appearance.. Gallbladder and bile ducts are unremarkable except for mild nonspecific distention the gallbladder. . There are multiple pancreatic head coarse calcifications consistent with chronic pancreatitis. There is slight prominence of the pancreatic duct which is a nonspecific finding. No biliary dilatation s een.. Adrenals appear normal bilaterally. Kidneys are unremarkable in appearance except for an incidental tiny nonobstructing left renal calculus. No ureteral calcification seen. There is no evidence of abdominal or pelvic adenopathy. Abdominal aorta is of normal diameter and no major vascular abnormality is seen. Appendix is normal. No evidence diverticulitis or bowel obstruction. No significant abdominal wall hernia seen. Impression: Coarse pancreatic calcifications are seen, these appear to have been present on prior CT of February 12. Findings are consistent with chronic pancreatitis. No evidence of acute process. RADIATION DOSE DELIVERED: 552.68mGy.cm Total DLP 552.68mGy.cm Total DLP DATA REPOSITORY: All CT scans at this facility are submitted to the National Radiology Data Registry (NRDR) Dose Index Registry (DIR) with the [employer] (ACR). RADIATION OPTIMIZATION: All CT scans at this facility use at least one of these dose optimization te chniques: automated exposure control; mA and/or kV adjustment per patient size (includes targeted exa ms where dose is matched to clinical indication); or iterative reconstruction.
--- NOTE | 2020-04-22 13:17 | ED.GENADUL_ITS ---
Discharge Plan Disposition Condition: Fair Discharge Details Chief Complaint: PsychEval Admit Date/Time: 04/22/20 16:03 Admit Provider: Selvin Tavarez Attending Provider: Selvin Tavarez Primary Care Provider: Joel Martinez ED Provider: Cammie Hill Discharge Instructions Activity:: Activity as Tolerated Equipment/Supplies:: No Equipment Needed Diet:: As Tolerated Discharge Orders Discharge Orders: Discharge Order (Routine); Ordered 04/24/20 Ordered By: Selvin Tavarez Discharge Data Discharge Date/Time-TO BE ENTERED AT DEPARTURE: 04/22/20 19:20 Medical Decision Making Jose Burns is a 35 y/o man who presented to the emergency department with depression, upper abdominal pain, vomiting. Benign cardiopulmonary exam. Abdomen TTP in upper quadrants, worse on left, no peritoneal signs. No acute suicidality, no psychosis. Concern for pancreatitis, gastritis, dehydration, metabolic/lyte derangement, depression. Exam/hx at this time not c/w acute coronary syndrome, acute aortic pathology, other acute vascular etiology, sepsis, acute emergent intracranial process, etoh withdrawal. Plan for IVF hydration, CT a/p, screening labs, UA, IV zofran, will monitor and reassess. Labs concerning for AKA. Will continue IVF. Plan for admission. Clinical Impression: AKA, depression Disposition: [facility] inpatient Medical Records Medical records reviewed: Yes I reviewed the patient's medical records. Imaging Data Radiologic Study: Attestation: I personally reviewed and interpreted this imaging study as follows: Radiologist's impression: EXAM: CT ABDOMEN PELVIS W CLINICAL HISTORY: abd pain, vomiting, h/o pancreatitis TECHNIQUE: CT CT ABDOMEN PELVIS W from 02/13/2020 FINDINGS: CT examination of the abdomen and pelvis was performed with bolus infusion of 100 cc of Omnipaque 350. Images obtained through the lung bases are unremarkable except for a 4 millimeter in diameter noncalcified left lower lobe intrapulmonary nodule.. There is severe hepatic steatosis without evidence of focal mass.. Spleen is unremarkable in appearance.. Gallbladder and bile ducts are unremarkable except for mild nonspecific distention the gallbladder.. There are multiple pancreatic head coarse calcifications consistent with chronic pancreatitis. There is slight prominence of the pancreatic duct which is a nonspecific finding. No biliary dilatation seen.. Adrenals appear normal bilaterally. Kidneys are unremarkable in appearance except for an incidental tiny nonobstructing left renal calculus. No ureteral calcification seen. There is no evidence of abdominal or pelvic adenopathy. Abdominal aorta is of normal diameter and no major vascular abnormality is seen. Appendix is normal. No evidence diverticulitis or bowel obstruction. No significant abdominal wall hernia seen. Impression: Coarse pancreatic calcifications are seen, these appear to have been present on prior CT of February 12. Findings are consistent with chronic pancreatitis. No evidence of acute process. Lab Data Lab results reviewed: Yes I reviewed the patient's lab results. HPI General Mode of arrival: ambulatory . Date/Time Provider Initiated Documentation: 04/22/20 12:34 . Limitations to Documentation: no limitations . Information obtained by: patient, RN notes reviewed and old records reviewed . HPI Narrative: Jose Hdz is a 35-year-old man with a history of alcohol abuse, alcoholic fatty liver, opiate addiction, depression, anxiety presenting to emergency department for abdominal pain, vomiting, and depression. Patient reports that he had stopped drinking, but began drinking again 1.5 weeks ago. Patient reports that he is drinking 1 gallon of vodka per day. Patient reports that he did drink this morning prior to arrival. He states that since drinking he has had abdominal pain in the left upper quadrant becoming generalized and severe over the past few days. Patient reports that he vomits whenever he tries to eat or drink anything. He notes occasional blood streaking in his vomit, no coffee-ground emesis. Denies fever, diarrhea, constipation, shortness of breath, cough, numbness, weakness. Patient reports that he has had pancreatitis in the past, which feels similar to this. Patient reports that he intermittently has suicidal thoughts and would like to go to [place]. Patient states I want to live that's why I'm here, he denies any acute s uicidality but would like to go to [place] for treatment of his depression. He denies homicidality. He denies any attempt to self-harm. Related Data Home Medications Medication Instructions Recorded Confirmed buprenorphine 8 mg-naloxone 2 mg 1 film SL DAILY 11/22/19 04/22/20 sublingual film gabapentin 600 mg tablet 600 mg PO TID #270 tab 02/20/20 04/22/20 venlafaxine 100 mg tablet 100 mg PO BID #60 tab 03/11/20 04/22/20 multivitamin [Multiple Vitamins] 1 tab PO DAILY #0 tab 04/24/20 Previous Rx's Medication Instructions Recorded gabapentin 600 mg tablet 600 mg PO TID #270 tab 02/20/20 venlafaxine 100 mg tablet 100 mg PO BID #60 tab 03/11/20 multivitamin [Multiple Vitamins] 1 tab PO DAILY #0 tab 04/24/20 Allergies Allergy/AdvReac Type Severity Reaction Status Date / Time No Known Allergies Allergy Verified 03/11/20 15:42 General Stated Complaint: Abd Prob KAVEH: 2 Review of Systems Narrative: Constitutional: denies fevers Eyes: denies eye pain ENT: denies ear pain, dental pain, sore throat Cardiovascular: denies chest pain, edema Respiratory: denies SOB, cough GI: reports abdominal pain, vomiting, denies diarrhea : denies flank pain MSK: denies back pain, neck pain, arthralgias, myalgias Skin: denies rash Neuro: denies headaches, numbness, weakness Psych: reports depression, denies suicidal thoughts, homicidal thoughts, hallucinations PFSH Medical History Alcohol abuse Anxiety, generalized Chronic back pain Depression Family history of schizophrenia Father History of alcohol abuse Migraine with aura Opiate addiction Severe depression Family History Mother Heart disease Asthma Father No problems noted. Sister Asthma Sister No problems noted. Brother No problems noted. Grandfather Essential hypertension Heart disease Asthma Grandfather Essential hypertension Heart disease Grandmother No problems noted. Grandmother No problems noted. Son No problems noted. Daughter No problems noted. 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 Working smoke detector in home: Yes Carbon monox detector in home: Yes Do you feel safe at home: Yes Do you feel safe in your relationship?: Yes Exam Narrative Exam Narrative: Constitutional: well and run-[id number], pleasant, conversing normally HENT: head atraumatic/normocephalic/normal inspection, mucous membranes moist Eyes: conjunctiva normal, sclera normal, pupils 3mm b/l Neck: no stridor, normal ROM, trachea midline Chest: normal inspection Resp: normal work of breathing, LCTAB Cardio: normal rate, normal rhythm, no murmur appreciated GI: abdomen soft, tender to palpation across the upper abdomen, worse in the LUQ, neg murphys, no rebound, no guarding, non-distended Back: normal inspection, no rash Skin: warm, dry, normal color, no rash Neuro: alert, not altered, grossly non-focal, normal tone Ext: no edema Psych: normal mood, somewhat flat affect, normal behavior, good eye contact, no ortiz, no hallucinations Course Vital Signs Vital signs: Respiratory Effort 04/22/20 13:14
[2020-04-22 13:46] LABS: Abs Immature Grans 0.02 10^3/uL (0.0-0.06); Absolute Basophil Count 0.04 10^3/uL (0.0-0.2); Absolute Eosinophil Count 0.02 10^3/uL (0.0-0.7); Absolute Lymphocyte Count 0.77 10^3/uL (1.2-3.4); Absolute Monocyte Count 0.58 10^3/uL (0.1-0.8); Absolute Neutrophil Count 6.37 10^3/uL (1.2-6.7); Basophils % 0.5; Eosinophils % 0.3; HCT 41.5 % (40.0-50.0); HGB 14.3 g/dL (13.5-17.5); Immature Grans % 0.3; Lymphocytes % 9.9; MCHC 34.5 % (32.0-36.0); MCV 101.7 fL (80-95); MPV 10.9 fL (8.0-11.0); Monocytes % 7.4; Neutrophils % 81.6; Nucleated RBC 0 %; RBC 4.08 10^6/uL (4.36-5.78); RDW 11.7 % (11.8-14.1); RDW-SD 43.8 fL
[2020-04-22 13:58] LABS: Diff Comment PLT Morph Reviewed; Macrocytosis 1+
[2020-04-22 14:00] LABS: ALT 132 U/L (16-63); AST 158 U/L (15-37); Albumin 4.7 g/dL (3.4-5.0); Alkaline Phosphatase 94 U/L (46-116); Anion Gap 24.1 mmol/L (3-11); BUN 12 mg/dL (7-18); Bilirubin, Total 1.9 mg/dL (0.2-1.0); CO2 14.9 mmol/L (21.0-32.0); CREATININE 0.97 mg/dL (0.70-1.30); Calcium 9.1 mg/dL (8.5-10.1); Chloride 93 mmol/L (98-107); ETHANOL BLOOD 30.7 mg/dL (<3); Glucose 62 mg/dL (74-106); Lipase 35 U/L (73-393); Potassium 4.1 mmol/L (3.5-5.1); Sodium 132 mmol/L (136-145); Total Protein 8.3 g/dL (6.4-8.2)
[2020-04-22] MEDS: Normal Saline 1,000 ML 1000 ML IV (14:00)
[2020-04-22] MEDS: Ondansetron 4 MG/2 ML VIAL IVP (14:20)
[2020-04-22] MEDS: Omnipaque 350 MG/ML 100 ML BTL IJ (14:58)
[2020-04-22] MEDS: Normal Saline - Diluent 50 ML VIAL IV (14:59)
[2020-04-22] MEDS: Normal Saline Flush 10 ML SYR IVP ×3 (15:00→22:53)
[2020-04-22] MEDS: DEXTROSE 5%-0.9% SALINE 1,000 ML 500 ML IV (15:49)
--- NOTE | 2020-04-22 16:03 | PDOC.CMSAFED ---
- If Service Date Differs Date of service: 04/22/20 Time of Service: 16:18 Care Management Safety Plan Well known patient to [facility] ER with four visits in January 2020 central to alcohol withdrawal, SI, homelessness. Hx of MALIK (Opiate addiction, heroin use disorder, alcohol use disorder) alcoholic fatty liver, severe depression, chronic back pain, generalized anxiety disorder, alcoholic pancreatitis, SI, family hx of schizophrenia. Awaiting medical clearance and MH assessment. In the interim; please note safety plan below to guide patient care while awaiting further assessment. SAFETY PLAN: 1. Will remain on suicide precautions and in paper clothes. 2. Will remain in room under direct supervision of one-on-one staff at all times provided by ATIYA, [employer] OFFICER resource manager forester. 3. May have paper cups, plates, finger foods as well as a cardboard spoon with which to eat meals. 4. Follow [facility] Management of the Admitted Behavioral Health Patient policy. 5. Shower permitted with escort. 6. Television, remote, soft cart items permitted per RN discretion. 7. No visitors. 8. Permitted patient's own phone, use of cordless phone per RN discretion. 9. Due to VOLUNTARY status, if patient wishes to leave [facility], the [facility] pediatric social worker must be contacted to re-evaluate patient prior to patient exiting the building. Please contact the Facilities Mechanical Design Engineer Learning Analyst ([phone]) and [facility] Demonstrator Sewing Techniques ([phone]) for any needed changes in the Safety Plan. Safety plan has been provided to interdepartmental care team. If deemed appropriate for inpatient psychiatric care, safety plan will be established with patient, and care team, to adhere to patient goals, identify restrictions based on behavioral status, address nutrition, and determine allowed personal belongings, tools for hygiene and personal care. As well plan will determine level of activity including ambulation, level of supervision, visitors, and determine privileges based on level of acuity, behaviors and level of engagement by patient.
--- NOTE | 2020-04-22 17:52 | NUR.NOTE ---
Nursing Note: Pt expresses frustration at not being seen by mental health because that's why I'm here. Pt made aware he was not medically cleared for mental health to screen him. Pt again expresses frustration at NPO status and being locked in a glass room. Pt educated on policy for all psychiatric evaluation patients, in that the expectation for the ED is to secure belongings, change into safety attire and provide safe room for evaluation.
[2020-04-22 18:05] LABS: Bilirubin Negative (Negative); Blood Negative (Negative); Clarity Clear (Clear); Glucose Negative (Negative); Ketones >=160 mg/dL (Negative); Leukocyte Esterase Negative (Negative); Nitrite Negative (Negative); Specific Gravity 1.025 (1.005-1.025); Urobilinogen 0.2 EU/dL (Up TO 0.2); pH 5.5 (5-8)
[2020-04-22] MEDS: Normal Saline 1,000 ML 100 ML IV (18:05)
[2020-04-22 18:16] LABS: Bacteria Negative HPF (Negative); C & S Indicated? No; Casts Negative LPF (Negative); Crystals Negative HPF (Negative); Epithelial Cells Rare HPF (Negative); Mucus Negative (Negative); RBC 0-2 HPF (0-2); WBC 0-2 HPF (0-5)
[2020-04-22 18:58] VITALS: BP 117/82; PULSE 72; RESP 18; TEMP 36.7; O2SAT 98
--- NOTE | 2020-04-22 19:18 | HPE_ITS ---
Date of service: 04/22/20 Time of Service: 19:19 Assessment and Plan Assessment and plan (1) Alcohol abuse: Status: Chronic Assessment and plan: Etoh level of 30.7 CIWA precautions Scheduled oral phenobarbitol for withdrawal; tapering dosage. He desires detox then placement. Case management involved. (2) Depression with anxiety: Status: Acute Assessment and plan: Cont Venlafaxine 100mg BID Desires dual treatment at [facility]. (3) Homeless: Status: Acute Assessment and plan: Case Managment involved. (4) Abdominal pain with vomiting: Status: Acute Assessment and plan: Chronic pancreatitis? Gastritis? PUD? Pantoprazole 40mg IV BID NPO except for ice chips and water as tolerated. IV fluids PRN compazine. (5) Alcoholic ketoacidosis: Status: Acute Assessment and plan: Feed when able. IV D5 NS History of Present Illness History of Present Illness Chief Complaint: abd pain Narrative: Jose Hdz is a 35-year-old man with a history of alcohol abuse, alcoholic fatty liver, opiate addiction, chronic pancreatitis, depression, anxiety presented to emergency department for abdominal pain, vomiting, and depression. Patient reported that he had stopped drinking, but began drinking again 1.5 weeks ago; drinking 1 gallon of vodka per day. He did drink the morning prior to arrival. He stated that since drinking he has had abdominal pain in the left upper quadrant becoming generalized and severe over the past few days. Patient reports that he vomits whenever he tries to eat or drink anything. He notes occasional blood streaking in his vomit, no coffee-ground emesis. Denied fever, diarrhea, constipation, shortness of breath, cough, numbness, weakness. He intermittently has suicidal thoughts and would like to go to [place]. Patient states I want to live that's why I'm here, he denies any acute evaristo cidality but would like to go to [place] for treatment of his depression. He denies homicidality. He denies any attempt to self-harm He endorses being homeless at this time and has been sleeping [id number]. In the ED his CT abd/pelvis showed calcifications of the pancreas compatible with chronic pancreatitis. WBC count and Hgb normal but with an elevated MCV. VGB pH low at 7.22 Na 132. K 4.1. CO2 low at 14.9. Anion Gap high at 24.1 BUN 12, Creatinine 0.97. TBili 1.9. AST 158. Alt 132. Troponin neg. Trigs 106. B12 1157. TSH 4.89. Review of Systems All systems reviewed & are unremarkable except as noted in HPI and below PFSH Medical History Alcohol abuse Anxiety, generalized Chronic back pain Depression Family history of schizophrenia Father History of alcohol abuse Migraine with aura Opiate addiction Severe depression Family History Mother Heart disease Asthma Father No problems noted. Sister Asthma Sister No problems noted. Brother No problems noted. Grandfather Essential hypertension Heart disease Asthma Grandfather Essential hypertension Heart disease Grandmother No problems noted. Grandmother No problems noted. Son No problems noted. Daughter No problems noted. 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 Working smoke detector in home: Yes Carbon monox detector in home: Yes Do you feel safe at home: Yes Do you feel safe in your relationship?: Yes Meds Home Medications and Allergies Home Medications Medication Instructions Recorded Confirmed Type buprenorphine 8 mg-naloxone 2 mg 1 film SL DAILY 11/22/19 04/22/20 History sublingual film gabapentin 600 mg tablet 600 mg PO TID #270 tab 02/20/20 04/22/20 Rx venlafaxine 100 mg tablet 100 mg PO BID #60 tab 03/11/20 04/22/20 Rx Allergies Allergy/AdvReac Type Severity Reaction Status Date / Time No Known Allergies Allergy Verified 03/11/20 15:42 Exam Const General: cooperative, anxious and disheveled Nutritional Appearance: thin Orientation: alert, oriented to person and oriented to place Eyes Sclera: sclerae normal EOM: EOM intact bilaterally Resp Effort & Inspection: normal respiratory effort Auscultation: clear to auscultation bilaterally Cardio Rate: regular rate Rhythm: regular rhythm Heart Sounds: S1 normal and S2 normal GI Inspection: normal to inspection Palpation: soft and tender in the epigastrum and in the LLQ Auscultation: normal bowel sounds Skin General skin exam: no rashes or lesions noted Extrem General: no pedal edema and no calf tenderness Psych Appearance: grossly normal Speech and Movement: speech and movement normal Affect: anxious affect Attitude: cooperative Results Labs Result diagrams: 04/22/20 13:40 04/22/20 13:40 Labs: Laboratory Results - last 24 hr 04/22/20 04/22/20 04/22/20 13:40 13:40 16:24 WBC 7.80 RBC 4.08 L Hgb 14.3 Hct 41.5 MCV 101.7 H MCH 35.0 H MCHC 34.5 RDW 11.7 L Plt Count MPV 10.9 Immature Gran % 0.3 Neutrophils % 81.6 Lymphocytes % 9.9 Monocytes % 7.4 Eosinophils % 0.3 Basophils % 0.5 Nucleated RBC % 0 Absolute Neutrophils 6.37 Absolute Lymphocytes 0.77 L Absolute Monocytes 0.58 Absolute Eosinophils 0.02 Absolute Basophils 0.04 RBC Morphology See below Macrocytosis 1+ Sodium 132 L Potassium 4.1 Chloride 93 L Carbon Dioxide 14.9 L Anion Gap 24.1 H BUN 12 Creatinine 0.97 Estimated GFR/1.73 m2 >= 60.00 Glucose 62 L Calcium 9.1 Total Bilirubin 1.9 H AST 158 H ALT 132 H Alkaline Phosphatase 94 Total Protein 8.3 H Albumin 4.7 Lipase 35 Urine Color Yellow Urine Clarity Clear Urine pH 5.5 Ur Specific [place] 1.025 Urine Protein Trace H Urine Ketones >=160 H Urine Blood Negative Urine Nitrite Negative Urine Bilirubin Negative Urine Urobilinogen 0.2 Ur Leukocyte Esterase Negative Urine RBC 0-2 Urine WBC 0-2 Ur Epithelial Cells Rare Urine Crystals Negative Urine Bacteria Negative Urine Casts Negative Urine Mucus Negative Ur Culture Indicated? No Urine Glucose Negative Ethyl Alcohol 30.7 Last Vital Signs Temp 36.7 C 04/22/20 18:58 Pulse 72 04/22/20 18:58 Resp 18 04/22/20 18:58 BP 117/82 04/22/20 18:58 Pulse Ox 98 04/22/20 18:58 COVID-19 Screening Have you,or household,traveled outside [place] in last 14 days?: No Had IN PERSON contact w/suspected or confirmed C-19 person: No
[2020-04-22] MEDS: DEXTROSE 5%-0.9% SALINE 1,000 ML 150 ML IV (20:31)
[2020-04-22] MEDS: Gabapentin 600 MG TAB PO (20:32)
[2020-04-22] MEDS: Venlafaxine 50 MG TAB 100 MG PO (20:32)
[2020-04-22] MEDS: PHENobarbital 64.8 MG TAB PO (20:32)
[2020-04-22 20:41] VITALS: BP 120/74; PULSE 81; RESP 20; TEMP 37.3; O2SAT 95
[2020-04-22] MEDS: Pantoprazole 40 MG VIAL IVP (21:18)
[2020-04-22 22:32] VITALS: BP 131/78; PULSE 70; RESP 18; TEMP 37.1; O2SAT 97
[2020-04-22] MEDS: LORazepam 1 MG TAB PO/SL (22:51)
[2020-04-22] MEDS: chlordiazePOXIDE 25 MG CAP PO (22:52)
[2020-04-22] MEDS: MORPHine 10 MG/ML VIAL 5 MG IVP (22:53)
[2020-04-22] MEDS: Prochlorperazine 10 MG/2 ML VIAL 5 MG IVP (23:02)
[2020-04-23 00:31] VITALS: BP 138/76; PULSE 70; RESP 18; TEMP 36.6; O2SAT 96
[2020-04-23 01:36] LABS: COVID-19 RT-PCR UVMMC Result Negative (Negative)
[2020-04-23] MEDS: LORazepam 1 MG TAB PO/SL ×3 (02:02→20:35)
[2020-04-23 02:27] VITALS: BP 117/74; PULSE 70; RESP 17; TEMP 36.4; O2SAT 94
[2020-04-23] MEDS: DEXTROSE 5%-0.9% SALINE 1,000 ML 150 ML IV ×4 (02:49→22:40)
[2020-04-23 04:30] VITALS: BP 115/66; PULSE 67; RESP 17; TEMP 36.7; O2SAT 94
[2020-04-23 06:30] VITALS: BP 118/65; PULSE 61; RESP 16; TEMP 36.6; O2SAT 93
[2020-04-23 07:37] LABS: ALT 80 U/L (16-63); AST 73 U/L (15-37); Albumin 3.3 g/dL (3.4-5.0); Alkaline Phosphatase 64 U/L (46-116); Anion Gap 8.1 mmol/L (3-11); BUN 7 mg/dL (7-18); Bilirubin, Total 1.3 mg/dL (0.2-1.0); CO2 23.9 mmol/L (21.0-32.0); CREATININE 0.74 mg/dL (0.70-1.30); Calcium 7.8 mg/dL (8.5-10.1); Chloride 103 mmol/L (98-107); Glucose 139 mg/dL (74-106); Magnesium 1.9 mg/dL (1.8-2.4); Potassium 3.7 mmol/L (3.5-5.1); Sodium 135 mmol/L (136-145); Total Protein 5.8 g/dL (6.4-8.2)
[2020-04-23 08:47] VITALS: BP 115/73; PULSE 70; RESP 18; TEMP 36.9; O2SAT 92
[2020-04-23] MEDS: Normal Saline Flush 10 ML SYR IVP (09:35)
[2020-04-23] MEDS: Enoxaparin 40 MG/0.4 ML SYR SC (09:36)
[2020-04-23] MEDS: Pantoprazole 40 MG VIAL IVP ×2 (09:36→20:33)
[2020-04-23] MEDS: Gabapentin 600 MG TAB PO ×3 (09:36→20:34)
[2020-04-23] MEDS: Venlafaxine 50 MG TAB 100 MG PO ×2 (09:36→20:34)
[2020-04-23] MEDS: Buprenorphine/Naloxone 8 mg/2 mg FILM 1 EACH SL (09:36)
[2020-04-23] MEDS: Thiamine 100 MG TAB PO (09:37)
[2020-04-23] MEDS: Folic Acid 1 MG TAB PO (09:37)
[2020-04-23] MEDS: chlordiazePOXIDE 25 MG CAP PO ×4 (09:37→20:35)
[2020-04-23] MEDS: Multivitamin TAB 1 TAB PO (09:37)
--- NOTE | 2020-04-23 11:57 | INITIAL_ITS ---
- If Service Date Differs Date of service: 04/23/20 Time of Service: 16:35 Care Management Initial Assess REASON FOR HOSPITALIZATION:: Chronic Pancreatitis PAST MEDICAL HISTORY/PAST SURGICAL HISTORY:: Alcohol use disorder, generalized anxiety, chronic back pain, depression, family hx of schizophrenia, migraine with aura, opiate addiction, severe depression. PREVIOUS FUNCTIONAL STATUS/SOCIAL/FAMILY SUPPORTS:: Jose has a long history of struggling with mental health, substance use and in relationships. He has been homeless and per chart review, seeking support for sometime. He is attached to [facility] who sent him to ED. He has chronic pancreatitis and has been sick and unable to eat for over a week. CURRENT FUNCTIONAL STATUS:: Jose is currently scoring high enough on the CIWA scale to delay mental health crisis evaluation. He is hopeful to detox and then transfer to for psychiatric stabilization. Awaiting medical clearance for evaluation to support disposition coordination. CM continues to follow. ADVANCE DIRECTIVES:: None on file. Has patient been provided with info about the portal/API?: No Did the patient sign up for the portal?: No CODE STATUS:: Full Code INSURANCE COVERAGE / FINANCIAL ISSUES:: [employer] CURRENT HOME/COMMUNITY SERVICES/EQUIPMENT:: [employer]ART PRIMARY CARE PHYSICIAN:: Joel Martinez POTENTIAL DISCHARGE NEEDS:: Mental Health Crisis Eval, Container Repairer (connected), CIWA monitoring, possible [facility] follow up; last dose letter if needed. PATIENT/FAMILY EDUCATION NEEDS:: Review discharge instructions, discuss Ask Me Three. ANTICIPATED BARRIERS TO DISCHARGE:: None identified. TRANSPORTATION:: TBD by disposition. PLAN:: Jose continues to be closely monitored on CIWA scale. Once medically cleared, he will have a mental health crisis evaluation. He is hopeful to detox and then transfer to for psychiatric stabilization. Awaiting medical clearance for evaluation to support disposition coordination. CM continues to follow.
--- NOTE | 2020-04-23 13:45 | W.PM.PROGNOT ---
Date of Service Date of service: 04/23/20 Time of Service: 13:45 Assessment and Plan Assessment and plan (1) Alcoholic ketoacidosis: Status: Acute Assessment and plan: Resolved (2) Alcohol abuse: Status: Chronic Assessment and plan: On CIWA monitoring with prn Ativan for scoring. MVI, thiamine, folate daily (3) Depression with anxiety: Status: Acute Assessment and plan: Cont Effexor. (4) Abdominal pain: Status: Acute Assessment and plan: Chronic pancreatitis and likely gastritis vs PUD. IV pantoprazole. Will advance diet as tolerates. Qualifiers: Abdominal location: left upper quadrant Qualified Code(s): R10.12 - Left upper quadrant pain Subjective Subjective Patient reports: afebrile; denies shortness of breath Interval history since last seen: required lorazepam for CIWA scoring of 8 last PM; anxiety. Slept much of the morning Still has abd pain but somewhat improved. + nausea, no emesis. Exam Const General: cooperative Nutritional Appearance: average body habitus Orientation: awake (wakens to verbal stimuli) Resp Effort & Inspection: normal respiratory effort Auscultation: clear to auscultation bilaterally Cardio Rate: regular rate Rhythm: regular rhythm Heart Sounds: S1 normal and S2 normal GI Palpation: soft and tender in the epigastrum and in the LUQ Auscultation: hypoactive bowel sounds Extrem General: no pedal edema and no calf tenderness Psych Appearance: grossly normal Affect: blunted Attitude: cooperative Objective Last Vital Signs Temp 36.9 C 04/23/20 08:47 Pulse 70 04/23/20 08:47 Resp 18 04/23/20 08:47 BP 115/73 04/23/20 08:47 Pulse Ox 92 04/23/20 08:47 Laboratory Results - last 24 hr 04/22/20 04/22/20 04/22/20 13:40 13:40 16:24 WBC 7.80 RBC 4.08 L Hgb 14.3 Hct 41.5 MCV 101.7 H MCH 35.0 H MCHC 34.5 RDW 11.7 L Plt Count MPV 10.9 Immature Gran % 0.3 Neutrophils % 81.6 Lymphocytes % 9.9 Monocytes % 7.4 Eosinophils % 0.3 Basophils % 0.5 Nucleated RBC % 0 Absolute Neutrophils 6.37 Absolute Lymphocytes 0.77 L Absolute Monocytes 0.58 Absolute Eosinophils 0.02 Absolute Basophils 0.04 RBC Morphology See below Macrocytosis 1+ Sodium 132 L Potassium 4.1 Chloride 93 L Carbon Dioxide 14.9 L Anion Gap 24.1 H BUN 12 Creatinine 0.97 Estimated GFR/1.73 m2 >= 60.00 Glucose 62 L Calcium 9.1 Magnesium Total Bilirubin 1.9 H AST 158 H ALT 132 H Alkaline Phosphatase 94 Total Protein 8.3 H Albumin 4.7 Lipase 35 Urine Color Yellow Urine Clarity Clear Urine pH 5.5 Ur Specific [place] 1.025 Urine Protein Trace H Urine Ketones >=160 H Urine Blood Negative Urine Nitrite Negative Urine Bilirubin Negative Urine Urobilinogen 0.2 Ur Leukocyte Esterase Negative Urine RBC 0-2 Urine WBC 0-2 Ur Epithelial Cells Rare Urine Crystals Negative Urine Bacteria Negative Urine Casts Negative Urine Mucus Negative Ur Culture Indicated? No Urine Glucose Negative Ethyl Alcohol 30.7 COVID-19 PCR Nasopharyn COVID-19 PCR Ref Test Perform Site 04/22/20 04/23/20 04/23/20 18:24 06:47 06:47 WBC RBC Hgb Hct MCV MCH MCHC RDW Plt Count MPV Immature Gran % Neutrophils % Lymphocytes % Monocytes % Eosinophils % Basophils % Nucleated RBC % Absolute Neutrophils Absolute Lymphocytes Absolute Monocytes Absolute Eosinophils Absolute Basophils RBC Morphology Macrocytosis Sodium 135 L Potassium 3.7 Chloride 103 Carbon Dioxide 23.9 Anion Gap 8.1 BUN 7 Creatinine 0.74 Estimated GFR/1.73 m2 >= 60.00 Glucose 139 H D Calcium 7.8 L Magnesium 1.9 Total Bilirubin 1.3 H AST 73 H ALT 80 H Alkaline Phosphatase 64 Total Protein 5.8 L Albumin 3.3 L Lipase Urine Color Urine Clarity Urine pH Ur Specific [place] Urine Protein Urine Ketones Urine Blood Urine Nitrite Urine Bilirubin Urine Urobilinogen Ur Leukocyte Esterase Urine RBC Urine WBC Ur Epithelial Cells Urine Crystals Urine Bacteria Urine Casts Urine Mucus Ur Culture Indicated? Urine Glucose Ethyl Alcohol COVID-19 PCR Negative Nasopharyn COVID-19 PCR Not Applicable Ref Test Perform Site [facility]
[2020-04-23 15:35] VITALS: BP 137/93; PULSE 70; RESP 18; TEMP 36.4; O2SAT 95
--- NOTE | 2020-04-23 16:32 | PDOC.CMSAFE ---
- If Service Date Differs Date of service: 04/23/20 Time of Service: 16:32 Care Management Safety Plan Well known patient to [facility] ER with four visits in January 2020 central to alcohol withdrawal, SI, homelessness. Hx of MALIK (Opiate addiction, heroin use disorder, alcohol use disorder) alcoholic fatty liver, severe depression, chronic back pain, generalized anxiety disorder, alcoholic pancreatitis, SI, family hx of schizophrenia. Awaiting medical clearance and MH assessment. In the interim; please note safety plan below to guide patient care while awaiting further assessment. SAFETY PLAN: 1. Will remain on suicide precautions and in paper clothes. 2. Will remain in room under direct supervision of one-on-one staff at all times provided by ATIYA, INSTRUMENTATION CONTROLS ENGINEER sap basis administrator. 3. May have paper cups, plates, finger foods as well as a cardboard spoon with which to eat meals. 4. Follow [facility] Management of the Admitted Behavioral Health Patient policy. 5. Shower permitted with escort. 6. Television, remote, soft cart items permitted per RN discretion. 7. No visitors. 8. Permitted patient's own phone, use of cordless phone per RN discretion. 9. Due to VOLUNTARY status, if patient wishes to leave [facility], the [facility] shed workers supervisor must be contacted to re-evaluate patient prior to patient exiting the building. Please contact the Delivery Supervisor Disk And Tape Machine Tender ([phone]) and [facility] Wind Turbine Engineer ([phone]) for any needed changes in the Safety Plan. Safety plan has been provided to interdepartmental care team. If deemed appropriate for inpatient psychiatric care, safety plan will be established with patient, and care team, to adhere to patient goals, identify restrictions based on behavioral status, address nutrition, and determine allowed personal belongings, tools for hygiene and personal care. As well plan will determine level of activity including ambulation, level of supervision, visitors, and determine privileges based on level of acuity, behaviors and level of engagement by patient.
[2020-04-24] MEDS: DEXTROSE 5%-0.9% SALINE 1,000 ML 150 ML IV (05:01)
[2020-04-24] MEDS: Normal Saline Flush 10 ML SYR IVP (08:28)
[2020-04-24] MEDS: Venlafaxine 50 MG TAB 100 MG PO (08:28)
[2020-04-24] MEDS: Pantoprazole 40 MG VIAL IVP (08:29)
[2020-04-24] MEDS: Gabapentin 600 MG TAB PO ×2 (08:29→13:39)
[2020-04-24] MEDS: Buprenorphine/Naloxone 8 mg/2 mg FILM 1 EACH SL (08:29)
[2020-04-24] MEDS: Enoxaparin 40 MG/0.4 ML SYR SC (08:29)
[2020-04-24] MEDS: Multivitamin TAB 1 TAB PO (08:30)
[2020-04-24] MEDS: chlordiazePOXIDE 25 MG CAP PO ×2 (08:30→13:39)
[2020-04-24] MEDS: Folic Acid 1 MG TAB PO (08:30)
[2020-04-24] MEDS: Thiamine 100 MG TAB PO (08:30)
--- NOTE | 2020-04-24 09:21 | PDOC.MHCN ---
Date of service: 04/24/20 Time of Service: 09:21 Mental Health Crisis Note Presenting Issue How did you arrive at the ED and why did you come: Jose arrived to the ER Wednesday and was admitted. Precipitating Factors Jose is denying SI and HI. He is not showing any signs of delusions. Disposition BEHAVIOR: Jose is cooperative and engaged. He seems to not have any memories of yesterday and this is confusing for him. He has a lot that he is carrying around with him emotionally so was very talkative. EYE CONTACT: Jose made good eye contact. MOOD: Jose presents as depressed and overwhelmed. AFFECT: Jose's affect is flat. APPETITE: Jose reported that he has been eating a lot. SLEEP(trouble falling/staying asleep: Jose reported he slept okay. Plan Jose will go to [facility] to see about getting money to put minutes on his phone. He will need to go to [employer] for housing needs. This clinician will do an in house referral for IOP, counseling and case management. Signature Clinician's Name/Title: Elza Miller MS, [facility] [[email or web address]] Emergency Services Clinician
[2020-04-24 09:42] VITALS: BP 135/87; PULSE 85; RESP 20; TEMP 36.9; O2SAT 94
[2020-04-24] MEDS: LORazepam 1 MG TAB PO/SL ×3 (09:48→13:47)
--- NOTE | 2020-04-24 13:49 | W.PM.DS.N ---
Date of service: 04/24/20 Time of Service: 13:50 DS: Diagnosis Discharge Diagnosis (1) Alcoholic ketoacidosis: Status: Acute (2) Alcohol abuse: Status: Chronic (3) Depression with anxiety: Status: Acute (4) Abdominal pain: Status: Acute Discharge Plan Disposition Patient Disposition: HOME Condition: Fair Discharge Details Reason For Visit: CHRONIC PANCREATITIS Admit Date/Time: 04/22/20 16:03 Admit Provider: Selvin Tavarez Attending Provider: Selvin Tavarez Primary Care Provider: Joel Martinez [facility] Course Hospital Course: Jose Hdz is a 35-year-old man with a history of alcohol abuse, alcoholic fatty liver, opiate addiction, chronic pancreatitis, depression, anxiety presented to emergency department for abdominal pain, vomiting, and depression. Patient reported that he had stopped drinking, but began drinking again 1.5 weeks ago; drinking 1 gallon of vodka per day. He did drink the morning prior to arrival. He stated that since drinking he has had abdominal pain in the left upper quadrant becoming generalized and severe over the past few days. Patient reported that he vomits whenever he tries to eat or drink anything. He noted occasional blood streaking in his vomit, no coffee-ground emesis. Denied fever, diarrhea, constipation, shortness of breath, cough, numbness, weakness. He intermittently has suicidal thoughts and would like to go to [facility]. Patient stated I want to live that's why I'm here, he denied any acute suicidality but would like to go to [facility] for treatment of his depression. He denied homicidality. He denied any attempt to self-harm He endorsed being homeless at this time and has been sleeping [id number]. In the ED his CT abd/pelvis showed calcifications of the pancreas compatible with chronic pancreatitis. WBC count and Hgb normal but with an elevated MCV. VGB pH low at 7.22 Na 132. K 4.1. CO2 low at 14.9. Anion Gap high at 24.1 BUN 12, Creatinine 0.97. TBili 1.9. AST 158. Alt 132. Troponin neg. Trigs 106. B12 1157. TSH 4.89. He was placed on CIWA precautions with prn Ativan for withdrawal signs and symptoms. Mental health consulted. A plan for him to call [facility] for assistance to obtain minutes for his phone, [employer] for housing needs. He is not transferring to [facility] and he is OK with the above plan. His abd pain resolved and his appetite was good. Home Meds and New Rx's Prescriptions: New multivitamin [Multiple Vitamins] Tablet 1 tab PO DAILY Qty: 0 RF: 0 Continued venlafaxine 100 mg tablet 100 mg PO BID Qty: 60 RF: 1 gabapentin 600 mg tablet 600 mg PO TID Qty: 270 RF: 3 buprenorphine-naloxone 8-2 mg film 1 film SL DAILY RF: 0 Discharge Instructions Activity:: Activity as Tolerated Equipment/Supplies:: No Equipment Needed Diet:: As Tolerated DS: Summary Status at Discharge Functional status at discharge: independent ambulation Overall status at discharge: patient is progressing back to baseline Mental Status: mental status grossly normal Speech and Movement: slowed movement Mood: dysthymic mood Affect: blunted Exam Const General: cooperative and no acute distress Nutritional Appearance: average body habitus Resp Effort & Inspection: normal respiratory effort Auscultation: clear to auscultation bilaterally Cardio Rate: regular rate Rhythm: regular rhythm Heart Sounds: S1 normal and S2 normal Extrem General: no pedal edema and no calf tenderness Psych Appearance: grossly normal Mental Status: mental status grossly normal Speech and Movement: slowed movement Mood: dysthymic mood Affect: blunted DS: Data Vitals/I&O Vitals and I&O: Vital Signs Temperature 36.9 C 04/24/20 09:42 Temperature Source Tympanic 04/24/20 09:42 Pulse 85 04/24/20 09:42 Pulse Rhythm Regular 04/24/20 08:30 Respiratory Rate 20 04/24/20 09:42 Respiratory Effort Non-Labored 04/24/20 08:30 Respiratory Depth Normal 04/24/20 08:30 Respiratory Pattern Normal 04/24/20 08:30 Blood Pressure 135/87 04/24/20 09:42 Pulse Oximetry 94 04/24/20 09:42 Oxygen Delivery Method Room Air 04/24/20 09:42 Oxygen Flow Rate 0 04/24/20 09:42 Pain Level 0 04/24/20 09:42 Intake & Output 04/23/20 04/24/20 04/24/20 23:59 11:59 23:59 Intake Total 2897.5 / 4842.5 2129.65 / 2129.65 Balance 2897.5 / 4842.5 / Intake: IV 1937.5 / 3882.5 1649.65 / 1648. Oral 960 / 960 480 / 480 Other: Urine Color Yellow Urine Appearance Clear Clear Urine Odor Normal Voiding Methods Toilet [facility] Medical History Alcohol abuse Anxiety, generalized Chronic back pain Depression Family history of schizophrenia Father History of alcohol abuse Migraine with aura Opiate addiction Severe depression Family History Mother Heart disease Asthma Father No problems noted. Sister Asthma Sister No problems noted. Brother No problems noted. Grandfather Essential hypertension Heart disease Asthma Grandfather Essential hypertension Heart disease Grandmother No problems noted. Grandmother No problems noted. Son No problems noted. Daughter No problems noted. 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
--- NOTE | 2020-04-24 18:12 | PDOC.CMDIS ---
- If Service Date Differs Date of service: 04/24/20 Time of Service: 18:12 LACE Index Scoring Tool - Questions: Length of Stay (in days): 3 Acuity (Admit via E.D.?): Yes E.D. Visits: 6 - Answers: Total Score: 10 Risk of Readmission: High Risk Care Management Discharge Reason for Hospitalization: Chronic Pancreatitis Discharge Plan: Jose was discharged today after being medically cleared. He was seen by Mental Health crisis and was cleared, as he has no SI/HI. He was referred to outpatient management and follow up for his mental health. [facility] has also offered to help Jose pay for his phone in order to keep in contact with him. CM offered him resources for drug/alcohol cessation. CM wrote a last dose letter and printed out an RCT bus schedule. CM also found and provided to him a direct contact for [employer] services in order for him to seek long term in the community. Patient/Family Education Needs: Review discharge instructions regarding activity levels and local resources, discussion of self care needs including ask me three.
== END 2020-04-24 15:25 | disposition home or self-care (01) | DRG 641 ==
LOC: ER 16:25 → MS 19:21
PROVIDERS: General Practice; Admitting Provider Family Medicine; Emergency Provider Student in an Organized Health Care Education/Training Program; PCP Family Medicine; Visit Provider Family Medicine
DX: E87.2 Acidosis (principal); F11.20 Opioid dependence, uncomplicated; F10.10 Alcohol abuse, uncomplicated; F41.8 Other specified anxiety disorders; K70.0 Alcoholic fatty liver; Z59.0 Homelessness; K86.89 Other specified diseases of pancreas; G89.29 Other chronic pain; M54.9 Dorsalgia, unspecified; F17.210 Nicotine dependence, cigarettes, uncomplicated
CPT/HCPCS: 36415; 80053; 83690; 96361; 96374; 99222; 99232; 99239; 99285; J1650; U0003; 74177; 80320; 81003; 81015; 83735; 85025; 85049; J0780; J2270; J2405; J3490; J7042

== ENCOUNTER 2021-01-09 12:37 | Emergency (ER) | payer MEDICAID, SELFPAY ==
[2021-01-09] VITALS (7 sets, daily range): BP systolic 142; BP diastolic 77; PULSE 77–109; RESP 14–16; TEMP 36.9; O2SAT 94–98
--- NOTE | 2021-01-09 12:30 | RT.EKG_ITS ---
APPROVED REPORT Exam: Resting ECG Reason for Exam: nausea Patient Location: E HR:84 bpm ECG Measurements Heart Rate 84 AXIS IA 140 P 62 QRSd 81 QRS 75 QT 371 T 60 QTc 438 Conclusion Sinus rhythm...normal P axis, V-rate 60- 99. Peaked T waves, seen in previous EKG. No STEMI. I have reviewed and interpreted ECG and agree with software generated interpretation.
--- NOTE | 2021-01-09 13:15 | DI.CT_ITS ---
Exam(s) CT ABDOMEN PELVIS W EXAM: CT ABDOMEN PELVIS W CLINICAL HISTORY: LUQ abd pain, r/o acute pancreatitis. TECHNIQUE: Imaging Protocol: Axial computed tomography images with coronal and sagittal reformatted images were created and reviewed CONTRAST MATERIAL: Intravenous: Omnipaque 100cc Oral: None CT CT ABDOMEN PELVIS W from 01/27/[address] ABDOMEN PELVIS W from 04/22/2020 FINDINGS: VISUALIZED LUNG BASES: Small 4 millimeter noncalcified subpleural nodule in the lateral basal segment of the left lower lobe is unchanged from June 2018 and therefore most probably benign.. No pleur al effusions. ABDOMEN: There is no ascites. LIVER: There is again noted be profoundly hypodense implying severe fatty parenchymal change just jeffery atosis, unchanged. There are no discrete focal hepatic lesions identified. No dilatation of intrahe patic ducts. GALLBLADDER/BILIARY: Again noted be somewhat distended but without obvious calculi therein nor promin ent edema of the gallbladder wall. CBD is not dilated. PANCREAS: There are coarse calcifications evident within the pancreatic head and other calcifications evident within the tail now evident. These have developed since the bout of pancreatitis in June 2018 (see CT scan 07/07/2018). The pancreatic duct is slightly prominent, unchanged. There is no t jonathan discernible mass in the pancreas. No peripancreatic fluid although there is very mild haziness in the fat around the pancreas evident. SPLEEN: Spleen is not enlarged. No obvious intrasplenic lesions. Splenic and portal veins are paten t. ADRENALS: There are no significant adrenal masses. KIDNEYS:No cysts evident. No solid renal masses. No calculi nor hydronephrosis.. ABDOMINAL AORTA: Abdominal aorta is not enlarged. LYMPH NODES:There is no retroperitineal nor paraaortic adenopathy. ABDOMINAL WALL: No evidence of significant anterior abdominal wall hernia. GI: Stomach appears slightly distended. There is no evidence of small-bowel obstruction. However, t here appearance of the colon is that of a diffuse colitis pattern. The colon is not distended. PELVIS: GI: No evidence of appendicitis.There is no evidence of significant sigmoid diverticular disease.Diff use colitis pattern LYMPH NODES: There is no intrapelvic nor inguinal adenopathy. REPRODUCTIVE: Prostate size normal. Seminal vesicles appear unremarkable. URINARY BLADDER: No calculi nor obvious masses evident OSSEOUS: No significant osseous lesions. Benign bone islands noted in the right femoral head. Sacroiliac joints appear unremarkable. IMPRESSION: 1. Severe hepatic steatosis is again noted. No discrete focal hepatic lesions identified. 2. Progressive calcification within the pancreatic head and tail reflect chronic pancreatitis. Pancr eatic duct is again noted be slightly dilated. There is very subtle haziness in the peripancreatic f at. Correlation with appropriate blood work recommended. There is no peripancreatic fluid collectio n. There is no obvious mass in the pancreas nor regional lymphadenopathy. 3. Appears mildly distended. No obvious calcified gallstones within the gallbladder lumen. Gallblad elva wall does not appear edematous. The common bile duct is not dilated. 4. There appears to be a diffuse abnormality of the colon wall consistent with colitis involving the entire length of the colon (the appendix appears unremarkable). RADIATION DOSE DELIVERED: 512.65mGy.cm Total DLP DATA REPOSITORY: All CT scans at this facility are submitted to the National Radiology Data Registry (NRDR) Dose Index Registry (DIR) with the [employer] (ACR). RADIATION OPTIMIZATION: All CT scans at this facility use at least one of these dose optimization te chniques: automated exposure control; mA and/or kV adjustment per patient size (includes targeted exa ms where dose is matched to clinical indication); or iterative reconstruction.
[2021-01-09 13:18] LABS: Abs Immature Grans 0.04 10^3/uL (0.0-0.06); Absolute Basophil Count 0.03 10^3/uL (0.0-0.2); Absolute Lymphocyte Count 1.05 10^3/uL (1.2-3.4); Absolute Monocyte Count 0.42 10^3/uL (0.1-0.8); Basophils % 0.3; HCT 42.6 % (40.0-50.0); HGB 14.6 g/dL (13.5-17.5); Immature Grans % 0.3; Lymphocytes % 9.1; MCH 34.3 pg (27.0-33.0); MCHC 34.3 % (32.0-36.0); MPV 9.3 fL (8.0-11.0); Monocytes % 3.6; Neutrophils % 86.7; Nucleated RBC 0 %; Platelet Count 258 10^3/uL (130-400); RBC 4.26 10^6/uL (4.36-5.78); RDW 11.9 % (11.8-14.1); RDW-SD 43.5 fL; WBC 11.53 10^3/uL (4.4-10.8)
[2021-01-09] MEDS: Normal Saline 1,000 ML 1000 ML IV (13:24)
--- NOTE | 2021-01-09 13:24 | ED.GENADUL_ITS ---
Discharge Plan Disposition Patient Disposition: AGAINST MEDICAL ADVICE Condition: Fair Discharge Details Clinical Impression: Alcoholic ketoacidosis, Vomiting Primary Care Provider: Joel Martinez ED Provider: Abigail Villafana Home Meds and New Rx's Prescriptions: Continued gabapentin 600 mg tablet 600 mg PO TID Qty: 270 RF: 3 buprenorphine-naloxone 8-2 mg film 1 film SL DAILY RF: 0 Discharge Instructions Instructions: Abuse of Alcohol (ED), Acute Nausea and Vomiting (ED) Additional Instructions: You are leaving the hospital AGAINST MEDICAL ADVICE. It is recommended that you stay for admission for continued fluids and observation. If you plan to stop drinking, be sure to do this safely as abruptly stopping drinking can result in alcohol withdrawal seizures or even . Take the Ativan as needed for symptoms of alcohol withdrawal. Do not take the Ativan with alcohol. Call your primary care doctor for information regarding rehabilitation centers such as [facility] or talk to the [facility]. Return immediately to the emergency department if you develop any worsening or new concerning symptoms. 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 Patient appears uncomfortable. Heart rate 90s, blood pressure 142/77. He is afebrile and appears nontoxic. Abdomen tender but no guarding or rigidity. He has tenderness in the left side of his abdomen. Differential diagnosis includes gastritis, pancreatitis, biliary colic, cholecystitis. Will place an IV, bolus IV fluids, screening labs, CT abdomen and pelvis and gallbladder ultrasound. Labs and imaging reviewed. White blood cell count 11. Bicarb 7. Anion gap 31. T bili 1.2. AST 130. ALT 98. Lipase normal at 194. Gallbladder ultrasound negative for acute findings. CT notes hepatic steatosis, chronic pancreatitis and colitis but no other acute findings. Patient reassessed and he feels somewhat better. With his elevated anion gap, will continue fluid hydration. Will give Pepcid IV and Carafate PO. Patient reassessed. He was given a total of 3 L of IV fluids and states he feels better. Repeat BMP notes his bicarb is still low at 11 and anion gap still high at 20. His potassium is 5.3 which I suspect is likely due to the shift in ions with his fluid hydration and alcoholic ketoacidosis. He denies chest pain or sob. I discussed with patient that I recommend he stay for admission but he declines. Patient states he does not have a ride home and plans to walk home. I advised patient that this is not recommended and he s hould stay. Patient understands the risks of leaving including risks of and disability due to missed diagnoses or worsening condition. He demonstrates capacity to make decisions. We will send patient home with a few tabs of Ativan for withdrawal symptoms as he states he plans to stop drinking. He states he will talk to his primary care doctor about rehab. He was offered to speak to the chemical recovery operator but declined. He states he will also follow-up with the [facility] clinic. He was advised to return here immediately with any worsening symptoms. Medical Records Medical records reviewed: Yes I reviewed the patient's medical records. Imaging Data Radiologic Study: Radiologist's impression: CT ABDOMEN PELVIS W CLINICAL HISTORY: LUQ abd pain, r/o acute pancreatitis. TECHNIQUE: Imaging Protocol: Axial computed tomography images with coronal and sagittal reformatted images were created and reviewed CONTRAST MATERIAL: Intravenous: Omnipaque 100cc Oral: None CT CT ABDOMEN PELVIS W from 01/27/[address] ABDOMEN PELVIS W from 04/22/2020 FINDINGS: VISUALIZED LUNG BASES: Small 4 millimeter noncalcified subpleural nodule in the lateral basal segment of the left lower lobe is unchanged from June 2018 and therefore most probably benign.. No pleural effusions. ABDOMEN: There is no ascites. LIVER: There is again noted be profoundly hypodense implying severe fatty parenchymal change just steatosis, unchanged. There are no discrete focal hepatic lesions identified. No dilatation of intrahepatic ducts. GALLBLADDER/BILIARY: Again noted be somewhat distended but without obvious araceli culi therein nor prominent edema of the gallbladder wall. CBD is not dilated. PANCREAS: There are coarse calcifications evident within the pancreatic head and other calcifications evident within the tail now evident. These have developed since the bout of pancreatitis in June 2018 (see CT scan 07/07/2018). The pancreatic duct is slightly prominent, unchanged. There is no truly discernible mass in the pancreas. No peripancreatic fluid although there is very mild haziness in the fat around the pancreas evident. SPLEEN: Spleen is not enlarged. No obvious intrasplenic lesions. Splenic and portal veins are patent. ADRENALS: There are no significant adrenal masses. KIDNEYS:No cysts evident. No solid renal masses. No calculi nor hydronephrosis.. ABDOMINAL AORTA: Abdominal aorta is not enlarged. LYMPH NODES:There is no retroperitineal nor paraaortic adenopathy. ABDOMINAL WALL: No evidence of significant anterior abdominal wall hernia. GI: Stomach appears slightly distended. There is no evidence of small-bowel obstruction. However, there appearance of the colon is that of a diffuse colitis pattern. The colon is not distended. PELVIS: GI: No evidence of appendicitis.There is no evidence of significant sigmoid diverticular disease.Diffuse colitis pattern LYMPH NODES: There is no intrapelvic nor inguinal adenopathy. REPRODUCTIVE: Prostate size normal. Seminal vesicles appear unremarkable. URINARY BLADDER: No calculi nor obvious masses evident OSSEOUS: No significant osseous lesions. Benign bone islands noted in the right femoral head. Sacroiliac joints appear unremarkable. IMPRESSION: 1. Severe hepatic steatosis is again noted. No discrete focal hepatic lesions identified. 2. Progressive calcification within the pancreatic head and tail reflect chronic pancreatitis. Pancreatic duct is again noted be slightly dilated. There is very subtle haziness in the peripancreatic fat. Correlation with appropriate blood work recommended. There is no peripancreatic fluid collection. There is no obvious mass in the pancreas nor regional lymphadenopathy. 3. Appears mildly distended. No obvious calcified gallstones within the gallbladder lumen. Gallbladder wall does not appear edematous. The common bile duct is not dilated. 4. There appears to be a diffuse abnormality of the colon wall consistent with colitis involving the entire length of the colon (the appendix appears unremarkable). Lab Data Lab results reviewed: Yes I reviewed the patient's lab results. Labs: Laboratory Tests Range/Units 01/09/21 01/09/21 01/09/21 13:10 13:10 13:10 WBC (4.4-10.8) 10^3/uL 11.53 H RBC (4.36-5.78) 10^6/uL 4.26 L Hgb (13.5-17.5) g/dL 14.6 Hct (40.0-50.0) % 42.6 MCV (80-95) fL 100.0 H MCH (27.0-33.0) pg 34.3 H MCHC (32.0-36.0) % 34.3 RDW (11.8-14.1) % 11.9 Plt Count (130-400) 10^3/uL 258 MPV (8.0-11.0) fL 9.3 Immature Gran % 0.3 Neutrophils % 86.7 Lymphocytes % 9.1 Monocytes % 3.6 Eosinophils % 0.0 Basophils % 0.3 Nucleated RBC % % 0 Absolute Neutrophils (1.2-6.7) 10^3/uL 10.00 H Absolute Lymphocytes (1.2-3.4) 10^3/uL 1.05 L Absolute Monocytes (0.1-0.8) 10^3/uL 0.42 Absolute Eosinophils (0.0-0.7) 10^3/uL 0.00 Absolute Basophils (0.0-0.2) 10^3/uL 0.03 Sodium (136-145) mmol/L 138 Potassium (3.5-5.1) mmol/L 4.7 Chloride (98-107) mmol/L 99 Carbon Dioxide (21.0-32.0) mmol/L 7.6 L Anion Gap (3-11) mmol/L 31.4 H BUN (7-18) mg/dL 11 Creatinine (0.70-1.30) mg/dL 1.0 Estimated GFR/1.73 m2 (mL/min/1.73m2) >= 60.00 Glucose (74-106) mg/dL 73 L Calcium (8.5-10.1) mg/dL 9.4 Total Bilirubin (0.2-1.0) mg/dL 1.2 H AST (15-37) U/L 130 H ALT (16-63) U/L 98 H Alkaline Phosphatase (46-116) U/L 98 Total Protein (6.4-8.2) g/dL 8.4 H Albumin (3.4-5.0) g/dL 4.9 Lipase (73-393) U/L 194 Range/Units 01/09/21 16:56 WBC (4.4-10.8) 10^3/uL RBC (4.36-5.78) 10^6/uL Hgb (13.5-17.5) g/dL Hct (40.0-50.0) % MCV (80-95) fL MCH (27.0-33.0) pg MCHC (32.0-36.0) % RDW (11.8-14.1) % Plt Count (130-400) 10^3/uL MPV (8.0-11.0) fL Immature Gran % Neutrophils % Lymphocytes % Monocytes % Eosinophils % Basophils % Nucleated RBC % % Absolute Neutrophils (1.2-6.7) 10^3/uL Absolute Lymphocytes (1.2-3.4) 10^3/uL Absolute Monocytes (0.1-0.8) 10^3/uL Absolute Eosinophils (0.0-0.7) 10^3/uL Absolute Basophils (0.0-0.2) 10^3/uL Sodium (136-145) mmol/L 135 L Potassium (3.5-5.1) mmol/L 5.3 H Chloride (98-107) mmol/L 103 Carbon Dioxide (21.0-32.0) mmol/L 11.4 L Anion Gap (3-11) mmol/L 20.6 H BUN (7-18) mg/dL 10 Creatinine (0.70-1.30) mg/dL 0.9 Estimated GFR/1.73 m2 (mL/min/1.73m2) >= 60.00 Glucose (74-106) mg/dL 93 Calcium (8.5-10.1) mg/dL 7.7 L Total Bilirubin (0.2-1.0) mg/dL AST (15-37) U/L ALT (16-63) U/L Alkaline Phosphatase (46-116) U/L Total Protein (6.4-8.2) g/dL Albumin (3.4-5.0) g/dL Lipase (73-393) U/L ECG Data Attestation: I personally reviewed and interpreted this ECG (s) as follows: Interpretation: Rate of 84, sinus, peaked T waves, seen in previous EKG. No STEMI. HPI General Mode of arrival: ambulatory . Date/Time Provider Initiated Documentation: 01/09/21 12:37 . Limitations to Documentation: no limitations . Information obtained by: patient . HPI Narrative: Patient is a 35-year-old male with a history of narcotic abuse currently on buprenorphine and a history of daily alcohol abuse presents for left-sided abdominal pain and multiple episodes of vomiting for the past few days. Patient states the vomitus is mainly bile or food. He denies any hematemesis. He states he had a few loose stools yesterday but denies any rectal bleeding. He does admit to intermittent sharp left-sided abdominal pain. He denies any known fever, recent antibiotics, recent travel. He states he has been drinking 1/5 of liquor daily for the past several weeks to months. He states he has had a history of pancreatitis in the past and states this feels similar. He states his last drink was last night. Related Data Home Medications Medication Instructions Recorded Confirmed buprenorphine 8 mg-naloxone 2 mg 1 film SL DAILY 11/22/19 01/09/21 sublingual film gabapentin 600 mg tablet 600 mg PO TID #270 tab 02/20/20 01/09/21 Previous Rx's Medication Instructions Recorded gabapentin 600 mg tablet 600 mg PO TID #270 tab 02/20/20 Allergies Allergy/AdvReac Type Severity Reaction Status Date / Time No Known Allergies Allergy Verified 03/11/20 15:42 General Stated Complaint: Abd Prob KAVEH: 3 Review of Systems All systems reviewed & are unremarkable except as noted in HPI and below Constitutional Constitutional: Reports as per HPI, Denies chills and Denies fever(s) Eyes Eyes: Denies blurry vision ENT Ears, Nose, Mouth, and Throat: Denies dizziness, Denies sore throat and Denies throat swelling Cardiovascular Cardiovascular: Denies chest pain and Denies dyspnea Respiratory Respiratory: Denies cough and Denies dyspnea Gastrointestinal Gastrointestinal: Reports abdominal pain, Denies diarrhea and Reports vomiting Genitourinary Genitourinary: Denies hematuria and Denies dysuria Musculoskeletal Musculoskeletal: Denies back pain and Denies numbness Integumentary/Breasts Skin/Breast: Denies lesions and Denies rash Neurologic Neurologic: Denies dizziness, Denies localized weakness and Denies numbness Allergic/Immunologic Allergic/Immunologic: Denies throat swelling [facility] Medical History Alcohol abuse Anxiety, generalized Chronic back pain Depression Family history of schizophrenia Father History of alcohol abuse Migraine with aura Opiate addiction Severe depression Family History Mother Heart disease Asthma Father No problems noted. Sister Asthma Sister No problems noted. Brother No problems noted. Grandfather Essential hypertension Heart disease Asthma Grandfather Essential hypertension Heart disease Grandmother No problems noted. Grandmother No problems noted. Son No problems noted. Daughter No problems noted. Daughter Asthma Social History Smoking/Tobacco Use Status: Current every day Tobacco Type: cigarettes Smoking risk assessment performed?: Yes Alcohol Intake: current Alcohol Intake frequency: 3 or more drinks per day Alcohol type: hard liquor Counseling provided: other Drug use: Occasionally Substance use type: marijuana and heroin Housing: apartment Number of Children: 3 What type of physical activity do you participate in: none Drive intox or ride w/intox driver education instructor: No Working smoke detector in home: Yes Carbon monox detector in home: Yes Do you feel safe at home: Yes Do you feel safe in your relationship?: Yes Exam Const General: cooperative and no acute distress HENMT Head: normal to inspection Face and sinus: normal facial exam Eyes General: appearance normal, both eyes and all related structures EOM: EOM intact bilaterally Neck Neck: normal visual inspection and No submandibular swelling Lymphatic: no lymphadenopathy noted Chest Chest: normal inspection of the chest and no tenderness Resp Effort & Inspection: normal respiratory effort and able to speak in complete sentences Auscultation: clear to auscultation bilaterally Cardio Rate: regular rate Rhythm: regular rhythm GI Inspection: normal to inspection Palpation: soft, not firm, not rigid and tender in the epigastrum and in the LUQ Auscultation: hypoactive bowel sounds Skin General skin exam: no rashes or lesions noted Neuro General: patient alert, patient awake and patient oriented x3 Cognition: normal cognition Speech: speech normal Motor: muscle tone normal throughout Sensory Exam: no sensory deficits noted Extrem General: normal to inspection, full ROM, capillary refill normal, no calf tenderness bilaterally and no edema Psych Appearance: grossly normal Mental Status: mental status grossly normal Speech and Movement: speech and movement normal Affect: normal affect Course Vital Signs Vital signs: Vital Signs Temperature 98.4 F 01/09/21 12:44 Pulse 94 H 01/09/21 12:44 Respiratory Rate 16 01/09/21 12:44 Blood Pressure 142/77 H 01/09/21 12:44 Pulse Oximetry 98 01/09/21 12:44 Temperature 98.4 F 01/09/21 12:44 Temperature Source Tympanic 01/09/21 12:44 Pulse 94 H 01/09/21 12:44 Pulse 109 H 01/09/21 13:09 Respiratory Rate 16 01/09/21 13:09 Respiratory Effort Non-Labored 01/09/21 13:17 Blood Pressure 142/77 H 01/09/21 12:44 Pulse Oximetry 97 01/09/21 13:09 Oxygen Delivery Method Room Air 01/09/21 12:44 Oxygen Flow Rate 0 01/09/21 12:44 Pain Level 8 01/09/21 12:44 Lab/Test Results Lab/Test Results: Laboratory Tests Range/Units 01/09/21 13:10 WBC (4.4-10.8) 10^3/uL 11.53 H RBC (4.36-5.78) 10^6/uL 4.26 L Hgb (13.5-17.5) g/dL 14.6 Hct (40.0-50.0) % 42.6 MCV (80-95) fL 100.0 H MCH (27.0-33.0) pg 34.3 H MCHC (32.0-36.0) % 34.3 RDW (11.8-14.1) % 11.9 Plt Count (130-400) 10^3/uL 258 MPV (8.0-11.0) fL 9.3 Immature Gran % 0.3 Neutrophils % 86.7 Lymphocytes % 9.1 Monocytes % 3.6 Eosinophils % 0.0 Basophils % 0.3 Nucleated RBC % % 0 Absolute Neutrophils (1.2-6.7) 10^3/uL 10.00 H Absolute Lymphocytes (1.2-3.4) 10^3/uL 1.05 L Absolute Monocytes (0.1-0.8) 10^3/uL 0.42 Absolute Eosinophils (0.0-0.7) 10^3/uL 0.00 Absolute Basophils (0.0-0.2) 10^3/uL 0.03
[2021-01-09 13:31] LABS: Lipase 194 U/L (73-393)
[2021-01-09] MEDS: Ondansetron 4 MG/2 ML VIAL IVP (13:32)
[2021-01-09 13:34] LABS: ALT 98 U/L (16-63); AST 130 U/L (15-37); Albumin 4.9 g/dL (3.4-5.0); Alkaline Phosphatase 98 U/L (46-116); Anion Gap 31.4 mmol/L (3-11); BUN 11 mg/dL (7-18); Bilirubin, Total 1.2 mg/dL (0.2-1.0); CO2 7.6 mmol/L (21.0-32.0); Calcium 9.4 mg/dL (8.5-10.1); Chloride 99 mmol/L (98-107); Glucose 73 mg/dL (74-106); Potassium 4.7 mmol/L (3.5-5.1); Sodium 138 mmol/L (136-145); Total Protein 8.4 g/dL (6.4-8.2)
--- NOTE | 2021-01-09 13:45 | DI.US_ITS ---
Exam(s) US ABDOMEN LIMITED EXAM: US ABDOMEN LIMITED CLINICAL HISTORY: LUQ abd pain, elev bili, LFTs, r/o cholecystitis TECHNIQUE: Ultrasound abdomen performed using standard protocol. COMPARISON: US US ABDOMEN from 07/08/[address] ABDOMEN PELVIS W from 01/09/2021 FINDINGS: Study apparently limited to the gallbladder There is no ascites evident. LIVER: 1 is seen in the liver appears hyperechoic indicating steatosis. GALLBLADDER/BILIARY: Gallbladder lumen is somewhat distended.. No obvious gallstones or gallbladder wall edema. No pericholecystic fluid. The common hepatic duct isnot dilated, measuring 3-4mm at the level of jeanna hepatis. PANCREAS: Not studied IMPRESSION: 1. Gallbladder appears somewhat distended but not truly edematous and there is also no pericholecyst ic fluid. Common hepatic duct is not dilated. 2. Hepatic steatosis incidentally noted. 3. No ascites evident on these limited right upper quadrant images. DATA REPOSITORY:
[2021-01-09] MEDS: Normal Saline - Diluent 50 ML VIAL IV (13:57)
[2021-01-09] MEDS: Omnipaque 350 MG/ML 100 ML BTL IV (13:57)
[2021-01-09] MEDS: Sucralfate 1 GM TAB PO (14:38)
[2021-01-09] MEDS: FAMOTIDINE 20 MG/50 ML BAG 200 MG IVPB (14:38)
[2021-01-09 17:13] LABS: Anion Gap 20.6 mmol/L (3-11); BUN 10 mg/dL (7-18); CO2 11.4 mmol/L (21.0-32.0); CREATININE 0.9 mg/dL (0.70-1.30); Calcium 7.7 mg/dL (8.5-10.1); Chloride 103 mmol/L (98-107); Glucose 93 mg/dL (74-106); Potassium 5.3 mmol/L (3.5-5.1); Sodium 135 mmol/L (136-145)
[2021-01-09] MEDS: LORazepam 0.5 MG TAB 2 MG PO (19:01)
== END 2021-01-09 19:10 | disposition left against medical advice (07) ==
PROVIDERS: Emergency Provider Physician Assistant; PCP Family Medicine
DX: R11.10 Vomiting, unspecified (principal); E78.2 Mixed hyperlipidemia; Z53.29 Procedure and treatment not carried out because of patient's decision for other reasons; F10.10 Alcohol abuse, uncomplicated
CPT/HCPCS: 36415; 80048; 80053; 83690; 93005; 96361; 96374; 96375; 99285; 74177; 76705; 85025; 93010; J2405; J3490

== ENCOUNTER 2021-04-03 15:01 | Outpatient (REF) | payer MEDICAID, SELFPAY ==
[2021-04-03 22:11] LABS: Abs Immature Grans 0.01 10^3/uL (0.0-0.06); Absolute Basophil Count 0.02 10^3/uL (0.0-0.2); Absolute Lymphocyte Count 1.37 10^3/uL (1.2-3.4); Absolute Monocyte Count 0.74 10^3/uL (0.1-0.8); Absolute Neutrophil Count 3.98 10^3/uL (1.2-6.7); Basophils % 0.3; Eosinophils % 1.6; HCT 37.9 % (40.0-50.0); HGB 12.8 g/dL (13.5-17.5); Immature Grans % 0.2; MCH 33.5 pg (27.0-33.0); MCHC 33.8 % (32.0-36.0); MCV 99.2 fL (80-95); MPV 10.4 fL (8.0-11.0); Monocytes % 11.9; Nucleated RBC 0 %; Platelet Count 384 10^3/uL (130-400); RBC 3.82 10^6/uL (4.36-5.78); RDW 12.5 % (11.8-14.1); RDW-SD 45.8 fL; WBC 6.22 10^3/uL (4.4-10.8)
[2021-04-03 22:32] LABS: ALT 37 U/L (16-63); AST 40 U/L (15-37); Albumin 3.8 g/dL (3.4-5.0); Alkaline Phosphatase 106 U/L (46-116); Anion Gap 7.1 mmol/L (3-11); BUN 9 mg/dL (7-18); Bilirubin, Total 0.3 mg/dL (0.2-1.0); CO2 29.9 mmol/L (21.0-32.0); CREATININE 1.1 mg/dL (0.70-1.30); Calcium 8.9 mg/dL (8.5-10.1); Chloride 101 mmol/L (98-107); Glucose 92 mg/dL (74-106); Potassium 4.1 mmol/L (3.5-5.1); Sodium 138 mmol/L (136-145); Total Protein 7.4 g/dL (6.4-8.2)
[2021-04-03 22:36] LABS: ESR 32 mm/hr (0-15)
[2021-04-03 23:07] LABS: C-Reactive Protein 1.43 mg/dL (0.0-0.3); Uric Acid 6.3 mg/dL (3.5-7.2)
== END 2021-04-03 15:02 | disposition home or self-care (01) ==
LOC: LBN 15:01
PROVIDERS: PCP Family Medicine; Visit Provider Nurse Practitioner Family
DX: M25.572 Pain in left ankle and joints of left foot (principal)
CPT/HCPCS: 80053; 85652; 84550; 85025; 86140

== ENCOUNTER 2021-04-04 04:02 | Outpatient (CLI) | payer MEDICAID, SELFPAY ==
--- NOTE | 2021-04-04 | DI.RAD_ITS ---
Exam(s) XR FOOT LT COMPLETE XR ANKLE LT COMPLETE EXAM: XR FOOT LT COMPLETE CLINICAL HISTORY: LT ANKLE PAIN, M25.572 TECHNIQUE: COMPARISON: CR XR ANKLE LT COMPLETE from 04/04/2021 CR XR ANKLE LT COMPLETE from 04/04/2021 FINDINGS: Three views of the ankle and three views of the foot were obtained. The ankle mortise is well mainta ined. Alignment of the ankle and foot appears within normal limits except for a mild hallux valgus d eformity. There are mild secondary degenerative changes at the 1st MTP joint with a prominent medial marginal o steophyte of the base of the proximal phalanx of the great toe. Mild marginal osteophyte formation also noted at the talonavicular joint. IMPRESSION: RADIATION DOSE DELIVERED: Total DLP
== END 2021-04-04 04:22 ==
PROVIDERS: PCP Family Medicine; Visit Provider Nurse Practitioner Family
DX: M25.572 Pain in left ankle and joints of left foot (principal); M25.775 Osteophyte, left foot; M19.272 Secondary osteoarthritis, left ankle and foot
CPT/HCPCS: 73610; 73630

== ENCOUNTER 2021-04-17 14:06 | Outpatient (REF) | payer MEDICAID, SELFPAY ==
[2021-04-17 14:38] LABS: Clarity Cloudy; Nucleated Cells 11938 uL (0)
[2021-04-17 14:44] LABS: Mononuclear Cells 20 %; Polynuclear Cells 80 %
[2021-04-17 14:50] LABS: Crystals (BF) No Crystals seen
[2021-04-19 10:58] LABS: COVID-19 RT-PCR UVMMC Result Negative (Negative)
== END 2021-04-17 14:07 | disposition home or self-care (01) ==
LOC: LBN 14:06
PROVIDERS: PCP Family Medicine; Visit Provider Physician Assistant Medical
DX: Z20.822 Contact with and (suspected) exposure to COVID-19 (principal); J06.9 Acute upper respiratory infection, unspecified; M25.461 Effusion, right knee
CPT/HCPCS: U0003; 85025; 87070; 87205; 89051; 89060

== ENCOUNTER 2021-05-02 12:53 | Outpatient (REF) | payer MEDICAID, SELFPAY ==
[2021-05-05 15:19] LABS: Chlamydia Result Negative (Negative); GC Result Negative (Negative)
== END 2021-05-02 12:54 | disposition home or self-care (01) ==
LOC: LBN 12:53
PROVIDERS: PCP Family Medicine; Visit Provider Family Medicine
DX: Z11.3 Encounter for screening for infections with a predominantly sexual mode of transmission (principal)
CPT/HCPCS: 87491; 87591

== ENCOUNTER 2021-05-08 12:50 | Emergency (ER) | payer MEDICAID, SELFPAY ==
[2021-05-08 13:16] VITALS: BP 113/72; PULSE 67; RESP 16; TEMP 36.7; O2SAT 100
--- NOTE | 2021-05-08 14:00 | DI.RAD_ITS ---
Exam(s) XR KNEE RT 3V AP,LAT,CARLINE EXAM: XR KNEE RT 3V AP,LAT,CARLINE CLINICAL HISTORY: pain post injury TECHNIQUE: COMPARISON: No exams were available for comparison FINDINGS: Three views were obtained. There is no evidence of acute fracture or dislocation. Note is made of a knee joint effusion. IMPRESSION: RADIATION DOSE DELIVERED: Total DLP
--- NOTE | 2021-05-08 14:00 | DI.CT_ITS ---
Exam(s) CT CHEST/ABD/PEL W EXAM: CT CHEST/ABD/PEL W TECHNIQUE: CT examination of the chest, abdomen, and pelvis was performed with bolus infusion of 50 cc of Omnipaque 350. The IV reportedly infiltrated, there is decreased opacification of vascular str uctures period Note is also made that there was significant motion artifact on this examination which limits interpr etation.. COMPARISON: CT CT ABDOMEN PELVIS W from 01/09/2021 FINDINGS: There is no evidence of a thoracic vascular injury. The lungs are clear. No pneumothorax or pleural effusion. No mediastinal hematoma. No adenopathy in the chest. Tracheobronchial tree appears intact. The liver, spleen, and pancreas appear hugo except for atrophy and calcification of the pancreas, polanco spicious for chronic pancreatitis. No acute injury. L. Gallbladder and bile ducts are normal. Adrenals and kidneys are unremarkable except for bilateral nonobstructing nephrolithiasis.. No evide nce of urinary tract injury or obstruction. No abdominal or pelvic vascular injury seen. No abdominal or pelvic adenopathy. No significant abdomi nal wall hernia or hematoma. No evidence of bowel injury. No fracture identified in the region surveyed. IMPRESSION: No evidence of acute injury of the chest, abdomen, or pelvis. RADIATION DOSE DELIVERED: 1,044.47mGy.cm Total DLP 1,044.47mGy.cm Total DLP CTDIvol DATA REPOSITORY: All CT scans at this facility are submitted to the National Radiology Data Registry (NRDR) Dose Index Registry (DIR) with the [employer] ([employer]). RADIATION OPTIMIZATION: All CT scans at this facility use at least one of these dose optimization te chniques: automated exposure control; mA and/or kV adjustment per patient size (includes targeted exa ms where dose is matched to clinical indication); or iterative reconstruction.
--- NOTE | 2021-05-08 14:00 | DI.CT_ITS ---
Exam(s) CT HEAD CERVICAL SPINE WO EXAM: CT HEAD CERVICAL SPINE WO COMPARISON: No exams were available for comparison FINDINGS: CT examination of the cervical spine was performed without contrast administration. There is no evidence of acute cervical spine fracture or dislocation. Intervertebral disc spaces are well maintained. Tracheolaryngeal structures appear intact. No cervical mass or adenopathy. Noncontrast cranial CT was performed. Ventricular system is normal in appearance. No evidence of acute intracranial hemorrhage, mass effect, or midline shift. No calvarial fracture. The orbital and temporal bone structures appear intact. Visualized mastoid air cells and paranasal sinuses appear clear. IMPRESSION: No evidence of acute cervical spine injury. No evidence of acute intracranial injury. RADIATION DOSE DELIVERED: 1,248.4mGy.cm Total DLP 1,248.4mGy.cm Total DLP CTDIvol DATA REPOSITORY: All CT scans at this facility are submitted to the National Radiology Data Registry (NRDR) Dose Index Registry (DIR) with the [employer] (ACR). RADIATION OPTIMIZATION: All CT scans at this facility use at least one of these dose optimization te chniques: automated exposure control; mA and/or kV adjustment per patient size (includes targeted exa ms where dose is matched to clinical indication); or iterative reconstruction.
[2021-05-08 14:47] LABS: Clarity Clear (Clear); Specific Gravity 1.015 (1.005-1.025)
[2021-05-08 14:48] LABS: Bilirubin Negative (Negative); Blood Negative (Negative); Glucose 250 mg/dL (Negative); Ketones Negative (Negative); Leukocyte Esterase Negative (Negative); Nitrite Negative (Negative); Urobilinogen 0.2 EU/dL (Up TO 0.2)
[2021-05-08 16:00] LABS: Abs Immature Grans 0.04 10^3/uL (0.0-0.06); Absolute Basophil Count 0.01 10^3/uL (0.0-0.2); Absolute Lymphocyte Count 0.46 10^3/uL (1.2-3.4); Absolute Monocyte Count 0.18 10^3/uL (0.1-0.8); Absolute Neutrophil Count 9.22 10^3/uL (1.2-6.7); Basophils % 0.1; HCT 38.9 % (40.0-50.0); HGB 12.9 g/dL (13.5-17.5); Immature Grans % 0.4; Lymphocytes % 4.6; MCH 32.2 pg (27.0-33.0); MCHC 33.2 % (32.0-36.0); Monocytes % 1.8; Neutrophils % 93.1; Nucleated RBC 0 %; Platelet Count 236 10^3/uL (130-400); RBC 4.01 10^6/uL (4.36-5.78); RDW-SD 46.2 fL; WBC 9.91 10^3/uL (4.4-10.8)
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
[2021-05-08] MEDS: Omnipaque 350 MG/ML 100 ML BTL IJ (16:14)
[2021-05-08] MEDS: Normal Saline - Diluent 50 ML VIAL IV (16:22)
[2021-05-08 16:51] LABS: Albumin 3.5 g/dL (3.4-5.0); Alkaline Phosphatase 109 U/L (46-116); BUN 5 mg/dL (7-18); Bilirubin, Total 0.7 mg/dL (0.2-1.0); CREATININE 0.8 mg/dL (0.70-1.30); Calcium 9.1 mg/dL (8.5-10.1); Glucose 179 mg/dL (74-106); Total Protein 8.2 g/dL (6.4-8.2)
[2021-05-08 16:52] LABS: ALT 27 U/L (16-63); AST 32 U/L (15-37); Anion Gap 8.5 mmol/L (3-11); CO2 27.5 mmol/L (21.0-32.0); Chloride 100 mmol/L (98-107); Lipase 27 U/L (73-393); Magnesium 2.5 mg/dL (1.8-2.4); Potassium 4.5 mmol/L (3.5-5.1); Sodium 136 mmol/L (136-145)
--- NOTE | 2021-05-08 17:00 | DI.VRAD_ITS ---
PROCEDURE INFORMATION: Exam: CT Head Without Contrast Exam date and time: 05/08/2021 2:05 PM Age: 36 years old Clinical indication: Injury or trauma; Other: Loc and hi; Blunt trauma (contusions or hematomas) TECHNIQUE: Imaging protocol: Computed tomography of the head without contrast. COMPARISON: No relevant prior studies available. FINDINGS: Brain: There is no evidence of acute hemorrhage within the brain parenchyma or the subarachnoid space. No abnormal attenuation is noted within the brain parenchyma. Cerebral ventricles: There is no significant ventricular effacement or midline shift. The ventricular system is normal in size and distribution. Paranasal sinuses: The sinuses are normal. Mastoid air cells: The mastoid sinuses are normal. Orbital cavity: The orbits are normal. Bones/joints: The skull is normal. No skull fracture. Soft tissues: The extracranial soft tissues are normal. IMPRESSION: No acute abnormality. PROCEDURE INFORMATION: Exam: CT Cervical Spine Without Contrast Exam date and time: 05/08/2021 2:05 PM Age: 36 years old Clinical indication: Injury or trauma; Other: Loc and hi; Blunt trauma (contusions or hematomas) TECHNIQUE: Imaging protocol: Computed tomography images of the cervical spine without contrast. COMPARISON: No relevant prior studies available. FINDINGS: Bones/joints: Normal lordotic curvature of the cervical spine. No spondylolysis or spondylolisthesis. No vertebral body compression fractures. No fracture of the posterior or lateral elements. Discs/Spinal canal/Neural foramina: No significant disc protrusion. No severe spinal canal stenosis. No significant neural foraminal narrowing. Lungs: The visualized bilateral upper lung delgado are clear. Soft tissues: No prevertebral soft tissue swelling. IMPRESSION: No acute cervical spine fracture or malalignment. Dictated and Authenticated by: Tabatha Trivedi MD. Ordering:JUAN LUIS Pat MD
--- NOTE | 2021-05-08 17:10 | DI.VRAD_ITS ---
PROCEDURE INFORMATION: Exam: CT Chest With Contrast; Diagnostic Exam date and time: 05/08/2021 4:19 PM Age: 36 years old Clinical indication: Injury or trauma; Other: Trauma, pain, chest abd/pelvis, left hip; Lower; Blunt trauma (contusions or hematomas) TECHNIQUE: Imaging protocol: Diagnostic computed tomography of the chest with contrast. Contrast material: OMNIPAQUE 350; Contrast volume: 50 ml; Contrast route: INTRAVENOUS (IV); COMPARISON: CT Abdomen^CAP WITH (Adult) 07/07/2018 12:58 PM FINDINGS: Thyroid: The thyroid gland is within normal limits. Lungs: The tracheobronchial tree is patent bilaterally. There are dependent atelectatic changes at the lung bases. Pleural spaces: Unremarkable. No pneumothorax. No pleural effusion. Heart: The heart and pericardium are within normal limits. Aorta: The aorta is unremarkable. Lymph nodes: No enlarged lymph nodes. Bones/joints: Unremarkable. No acute fracture. Soft tissues: Unremarkable. IMPRESSION: Unremarkable CT scan of the chest. PROCEDURE INFORMATION: Exam: CT Abdomen And Pelvis With Contrast Exam date and time: 05/08/2021 4:19 PM Age: 36 years old Clinical indication: Injury or trauma; Other: Trauma, pain, chest abd/pelvis, left hip; Lower; Blunt trauma (contusions or hematomas) TECHNIQUE: Imaging protocol: Computed tomography of the abdomen and pelvis with contrast. Contrast material: OMNIPAQUE 350; Contrast volume: 50 ml; Contrast route: INTRAVENOUS (IV); COMPARISON: CT Abdomen^CAP WITH (Adult) 07/07/2018 12:58 PM FINDINGS: Liver: The liver is within normal limits. Gallbladder and bile ducts: The gallbladder is unremarkable. Pancreas: The pancreas appears somewhat atrophic. There are calcifications within the pancreas which are suspicious for chronic pancreatitis. Clinical correlation is recommended. Spleen: The spleen is within normal limits. Adrenal glands: The adrenal glands are unremarkable. Kidneys and ureters: There is bilateral nephrolithiasis without evidence of obstruction. Stomach and bowel: There are feces within the colon which are suspicious for constipation. Appendix: No evidence of appendicitis. Intraperitoneal space: Unremarkable. No free air. No significant fluid collection. Vasculature: Unremarkable. No abdominal aortic aneurysm. Lymph nodes: No enlarged lymph nodes. Urinary bladder: The urinary bladder is unremarkable. Reproductive: The prostate and seminal vesicles are within normal limits. Bones/joints: Unremarkable. No acute fracture. Soft tissues: Unremarkable. Other findings: The study is limited due to motion artifact. IMPRESSION: Bilateral nephrolithiasis without evidence of obstruction. Somewhat atrophic pancreas. There are pancreatic calcifications which are suspicious for chronic pancreatitis. Clinical correlation is recommended. Suspect some degree of constipation. Limited study as above. Dictated and Authenticated by: Eber Benavides MD. Ordering:JUAN LUIS Pat MD
--- NOTE | 2021-05-08 17:12 | DI.VRAD_ITS ---
PROCEDURE INFORMATION: Exam: XR Right Knee Exam date and time: 05/08/2021 2:05 PM Age: 36 years old Clinical indication: Other: Pain post injury TECHNIQUE: Imaging protocol: XR Right knee. Views: 3 views. COMPARISON: No relevant prior studies available. FINDINGS: Bones/joints: There is a suprapatellar effusion. Soft tissues: There is slight soft tissue swelling at the level of the patella tendon. IMPRESSION: Suprapatellar effusion. Clinical correlation is recommended. Further evaluation as clinically warranted. Dictated and Authenticated by: Eber Benavides MD. Ordering:JUAN LUIS Pat MD
[2021-05-08 17:25] LABS: ETHANOL BLOOD < 3.0 mg/dL (<10)
== END 2021-05-08 18:14 | disposition home or self-care (01) ==
PROVIDERS: Physician Assistant; Emergency Provider Physician Assistant; PCP Family Medicine
DX: S06.899A Other specified intracranial injury with loss of consciousness of unspecified duration, initial encounter (principal); M25.561 Pain in right knee; M25.461 Effusion, right knee; V03.90XA Pedestrian on foot injured in collision with car, pick-up truck or van, unspecified whether traffic or nontraffic accident, initial encounter
CPT/HCPCS: 29505; 73562; 74177; 80053; 83690; 86900; 86901; 90471; 99285; 70450; 71260; 72125; 80320; 81003; 83735; 85025; 99284; J3490

== ENCOUNTER 2021-06-03 02:45 | Outpatient (CLI) | payer MEDICAID, SELFPAY ==
[2021-06-03 11:21] LABS: ESR 41 mm/hr (0-15)
[2021-06-03 13:09] LABS: C-Reactive Protein 0.63 mg/dL (0.0-0.3)
[2021-06-03 21:57] LABS: Rheumatoid Factor 14.2 IU/mL (<12.0)
[2021-06-04 11:50] LABS: Cyclic Citrullinated Peptide <2.5 U/mL (<5.0)
[2021-06-04 13:56] LABS: Lyme Ab w Rflx to Lyme Confirm Positive (Negative)
[2021-06-04 20:24] LABS: Anaplasma phagocytophilum Negative (Negative); B. miyamotoi PCR Negative (Negative); Babesia divergens/MO-1 Negative (Negative); Babesia duncani Negative (Negative); Babesia microti Negative (Negative); Ehrlichia chaffeensis Negative (Negative); Ehrlichia ewingii/canis Negative (Negative); Ehrlichia muris eauclairensis Negative (Negative)
[2021-06-05 13:25] LABS: Lyme IgG Ab Positive (Negative); Lyme IgM Ab Positive (Negative)
== END 2021-06-03 02:46 | disposition home or self-care (01) ==
LOC: LBO 02:45
PROVIDERS: PCP Family Medicine; Visit Provider Family Medicine
DX: M25.561 Pain in right knee (principal); M25.572 Pain in left ankle and joints of left foot; R22.41 Localized swelling, mass and lump, right lower limb
CPT/HCPCS: 36415; 85652; 86200; 86617; 87798; 86140; 86431; 86618

== ENCOUNTER 2021-07-08 07:06 | Emergency (ER) | payer MEDICAID, SELFPAY ==
[2021-07-08 07:18] VITALS: BP 139/87; PULSE 84; RESP 20; TEMP 37.1; O2SAT 100
--- NOTE | 2021-07-08 07:22 | ED.GENADUL_ITS ---
Discharge Plan Disposition Patient Disposition: HOME Condition: Stable Discharge Details Clinical Impression: Abdominal pain, Acute pancreatitis Primary Care Provider: Joel Martinez ED Provider: Jarrod Vaughn Home Meds and New Rx's Prescriptions: New pantoprazole [Protonix] 40 mg tablet,delayed release (DR/EC) 40 mg PO DAILY Qty: 60 RF: 0 Continued buprenorphine-naloxone 8-2 mg film 1 film SL DAILY RF: 0 pregabalin 150 mg capsule 150 mg PO BID Qty: 60 RF: 3 Discharge Instructions Instructions: Pancreatitis (ED) Additional Instructions: At this time you have evidence of mild pancreatitis. Please continue to decrease your alcohol use. Please take the Protonix as directed to help with your stomach pain. Maalox and Pepto-Bismol can also help with the irritation in your stomach, intestines and pancreas please avoid any fatty or greasy foods. Drink plenty of fluids. Avoid any spicy foods if you notice any worsening of your symptoms, or any new symptoms such as vomiting, diarrhea, fever, chills, shortness of breath, chest pain, numbness, weakness, or fainting , please return immediately to the emergency department for reevaluation. Please follow up with your primary care provider as soon as possible for reassessment and reevaluation. As always, it was a pleasure participating in your medical care today. Referrals: Joel Martinez DO [Primary Care Provider] - Medical Decision Making <Alex Avendaño MD - Last Filed: 07/08/21 07:26> 36 yo male with hx of alcohol abuse, prior substance abuse and states he has been clean for years, prior pancreatitis, who comes in with 3 days of worsening mid abdomen pain and n/v. STates his last drink of alcohol was during the night and was liquor. HE denies chest pain, fevers, chills. He arrives clinically sober, does appear in pain. He localizes the pain to the mid abdomen and is tender with palpation around the umbilicus and llq as well. Given his history and acute worsening pain will obtain labs and ct to evaluate for acute pancreatitis, hepatitis and small bowel obstruction Differential Diagnosis Differential Diagnosis: chronic vs acute pancreatitis, sbo, alcohol induced gastritis Medical Records Medical records reviewed: Yes I reviewed the patient's medical records. Lab Data Lab results reviewed: Yes I reviewed the patient's lab results. <Jarrod Vaughn DO - Last Filed: 07/08/21 10:43> Patient was signed out to me by my colleague Dr. Alex Avendaño, please refer to his HPI, physical exam, assessment and plan. At time of signout we are awaiting CT scan. CT scan shows evidence of acute on chronic pancreatitis with mild duodenitis gastritis. No biliary obstruction. Laboratory work-up demonstrates a mild white count like secondary to his vomiting and stomach irritation. Initial lactate was elevated at 3.6, repeat lactate after fluid rehydration is down to 1.8. Electrolytes stable. Patient has mild elevation of his transaminases, bilirubin is normal. He has a history of transaminitis. Secondary to his alcohol intake. Lipase is elevated at 551. Symptoms consistent with pancreatitis. Recommend continued fluids at home. Will give Protonix here. We will give Protonix for home use as well. Recommend continue alcohol cessation. Did offer to contact the recovery coaches, however the patient is not interested in that at this time. Discussed red flags for which to return. Patient was able to tolerate p.o. Stable for discharge. He has received liters of normal saline. I have extensively reviewed the treatment plan and discharge instructions with the patient. I have addressed all patient concerns at this time. The patient was made aware of what symptoms to monitor for that would warrant a return to the emergency department. Discussed the plan with the patient, they demonstrate verbal understanding and agreement with our assessment and plan at this time. The documentation in this chart was dictated using [employer] dictation software. Please excuse any dictation errors. FINDINGS: CT examination of the abdomen and pelvis was performed with bolus infusion of 100 cc of Omnipaque 350. Images obtained through the lung bases are unremarkable. The liver shows decreased attenuation consistent with hepatic steatosis. The liver may be mildly enlarged.. Spleen is unremarkable in appearance.. Gallbladder and bile ducts are unremarkable. The pancreas appears atrophic and contains multiple calcifications, mostly in the head of the pancreas. Pancreatic duct is moderately dilated. There is moderate peripancreatic edema. The findings are consistent with acute and chronic pancreatitis.. There is marked associated dilatation and wall thickening portions of the stomach and duodenum, presumably secondary to adjacent pancreatitis. No gross free fluid in the peritoneal cavity. No pseudocyst identified. Adrenals appear normal bilaterally. Kidneys appear normal with no evidence of renal mass, hydronephrosis, or nephr olithiasis. Unremarkable bladder. There is no evidence of abdominal or pelvic adenopathy. Abdominal aorta is of normal diameter and no abnormality is seen involving major visceral branches.. Appendix is normal. No evidence diverticulitis or bowel obstruction. No significant abdominal wall hernia seen. Impression: The appearance is consistent with acute and chronic pancreatitis with secondary inflammation of adjacent duodenum and stomach. No evidence of duodenal obstruction. No biliary obstruction.. HPI <Alex Avendaño MD - Last Filed: 07/08/21 07:26> General Mode of arrival: ambulatory . Date/Time Provider Initiated Documentation: 07/08/21 07:13 . Limitations to Documentation: no limitations . Information obtained by: patient . History of Present Illness 36 year old M presents to the emergency department with the chief complaint of abdominal pain, described as moderate, with intensity rated at 8. Quality is described as sharp, and is localized to the abdomen. Patient reports no radiation. Patient started experiencing this day(s) (3) and it has been constant. No exacerbating factors reported . Patient notes nausea/vomiting. Patient did receive the following treatments prior to arrival, none Related Data Home Medications Medication Instructions Recorded Confirmed buprenorphine 8 mg-naloxone 2 mg 1 film SL DAILY 11/22/19 07/08/21 sublingual film pregabalin 150 mg capsule 150 mg PO BID #60 cap 07/03/21 07/08/21 pantoprazole [Protonix] 40 mg PO DAILY #60 tab 07/08/21 Previous Rx's Medication Instructions Recorded pregabalin 150 mg capsule 150 mg PO BID #60 cap 07/03/21 pantoprazole [Protonix] 40 mg PO DAILY #60 tab 07/08/21 Allergies Allergy/AdvReac Type Severity Reaction Status Date / Time No Known Allergies Allergy Verified 07/08/21 07:54 General Stated Complaint: Abd Prob KAVEH: 3 Review of Systems <Alex Avendaño MD - Last Filed: 07/08/21 07:26> All systems reviewed & are unremarkable except as noted in HPI and below Constitutional Constitutional: Denies chills, Denies fever(s) and Denies weakness Cardiovascular Cardiovascular: Denies chest pain and Denies dyspnea Respiratory Respiratory: Denies cough and Denies dyspnea Musculoskeletal Musculoskeletal: Denies joint swelling Neurologic Neurologic: Denies weakness PFS <Alex Avendaño MD - Last Filed: 07/08/21 07:26> All Active Problems (Updated 07/08/21 @ 10:35 by Jarrod Vaughn DO) Abdominal pain (Acute) Acute pancreatitis (Acute) Contusion of right knee (Acute) Lyme disease (Acute) Abrasion (Acute) Trauma (Acute) Inflammatory arthritis (Acute) Alcoholic ketoacidosis (Acute) Vomiting (Acute) Abdominal pain (Acute) Alcoholic ketoacidosis (Acute) Abdominal pain with vomiting (Acute) Depression with anxiety (Acute) History of alcohol abuse (Acute) Family history of schizophrenia (Chronic) Father Migraine with aura (Acute) Homeless (Acute) Colitis (Acute) Alcoholic fatty liver (Acute) Nausea and vomiting (Acute) Hypoglycemia (Acute) Severe depression (Chronic) Delirium (Acute) Opiate addiction (Chronic) Alcohol abuse (Chronic) Heroin abuse (Chronic) Elevated transaminase level (Acute) Chronic back pain (Chronic) Depression (Chronic) Anxiety, generalized (Chronic) Family History Mother Heart disease Asthma Father No problems noted. Sister Asthma Sister No problems noted. Brother No problems noted. Grandfather Essential hypertension Heart disease Asthma Grandfather Essential hypertension Heart disease Grandmother No problems noted. Grandmother No problems noted. Son No problems noted. Daughter No problems noted. Daughter Asthma Social History Smoking/Tobacco Use Status: Current every day Tobacco Type: cigarettes Smoking risk assessment performed?: Yes Alcohol Intake: current Alcohol Intake frequency: 3 or more drinks per day Alcohol type: hard liquor Counseling provided: other Drug use: Occasionally Substance use type: marijuana and heroin Details: middle of the night. Housing: apartment Number of Children: 3 What type of physical activity do you participate in: none Drive intox or ride w/intox stock car driver: No Working smoke detector in home: Yes Carbon monox detector in home: Yes Do you feel safe at home: Yes Do you feel safe in your relationship?: Yes Exam <Alex Avendaño MD - Last Filed: 07/08/21 07:26> Const General: no acute distress Orientation: alert HENMT Head: normal to inspection Ears: external ears normal General nose exam: external nose normal Mouth: moist mucous membranes Eyes General: appearance normal, both eyes and all related structures Neck Neck: normal visual inspection Resp Effort & Inspection: normal respiratory effort and able to speak in complete sentences Cardio Rate: regular rate GI Palpation: tender Skin General skin exam: no rashes or lesions noted Neuro General: patient alert and patient oriented x3 Extrem General: normal to inspection Psych Mental Status: mental status grossly normal Course <Alex Avendaño MD - Last Filed: 07/08/21 07:26> Vital Signs Vital signs: Vital Signs Temperature 37.1 C 07/08/21 07:18 Pulse 84 07/08/21 07:18 Respiratory Rate 20 07/08/21 07:18 Blood Pressure 139/87 07/08/21 07:18 Pulse Oximetry 100 07/08/21 07:18 Temperature 37.1 C 07/08/21 07:18 Temperature Source Temporal Artery Scan 07/08/21 07:18 Pulse 84 07/08/21 07:18 Respiratory Rate 20 07/08/21 07:18 Blood Pressure 139/87 07/08/21 07:18 Blood Pressure Position Sitting 07/08/21 07:18 Pulse Oximetry 100 07/08/21 07:18 Oxygen Delivery Method Room Air 07/08/21 07:18 Oxygen Flow Rate 0 07/08/21 07:18 Pain Level 8 07/08/21 07:18 Sign Out <Alex Avendaño MD - Last Filed: 07/08/21 07:26> Sign Out Data: Sign Out Comment: alcohol abuse, prior pancreatitis, 3 days of worsening abdomen pain/n/v. Pending labs and ct Last updated by Alex Avendaño MD at 07/08/21 07:26
[2021-07-08 07:45] LABS: Abs Immature Grans 0.04 10^3/uL (0.0-0.06); Absolute Basophil Count 0.05 10^3/uL (0.0-0.2); Absolute Lymphocyte Count 2.16 10^3/uL (1.2-3.4); Absolute Monocyte Count 0.94 10^3/uL (0.1-0.8); Basophils % 0.3; Eosinophils % 0.3; HCT 47.8 % (40.0-50.0); HGB 16.6 g/dL (13.5-17.5); Immature Grans % 0.3; Lymphocytes % 14.1; MCH 32.5 pg (27.0-33.0); MCHC 34.7 % (32.0-36.0); MCV 93.5 fL (80-95); MPV 9.2 fL (8.0-11.0); Monocytes % 6.1; Neutrophils % 78.9; Nucleated RBC 0 %; Platelet Count 271 10^3/uL (130-400); RBC 5.11 10^6/uL (4.36-5.78); RDW 12.8 % (11.8-14.1); RDW-SD 44.3 fL; WBC 15.33 10^3/uL (4.4-10.8)
[2021-07-08 07:47] LABS: Lactate 3.6 mmol/L (0.6-1.4)
[2021-07-08] MEDS: Ketorolac 15 MG/ML VIAL IVP (07:49)
[2021-07-08] MEDS: Normal Saline 1,000 ML 1000 ML IV ×2 (07:49→09:35)
[2021-07-08 07:50] LABS: Absolute Eosinophil Count 0.05 10^3/uL (0.0-0.7)
[2021-07-08] MEDS: Normal Saline Flush 10 ML SYR IVP (07:50)
[2021-07-08] MEDS: Ondansetron 4 MG/2 ML VIAL IVP (07:50)
[2021-07-08] MEDS: HYDROmorphone 2 MG/ML VIAL 1 MG IVP (07:50)
[2021-07-08 08:06] LABS: ALT 82 U/L (16-63); AST 63 U/L (15-37); Albumin 4.8 g/dL (3.4-5.0); Alkaline Phosphatase 156 U/L (46-116); Anion Gap 15.9 mmol/L (3-11); BUN 9 mg/dL (7-18); Bilirubin, Direct 0.2 mg/dL (0.0-0.2); Bilirubin, Total 0.8 mg/dL (0.2-1.0); CO2 24.1 mmol/L (21.0-32.0); CREATININE 0.9 mg/dL (0.70-1.30); Calcium 9.9 mg/dL (8.5-10.1); Chloride 98 mmol/L (98-107); ETHANOL BLOOD 52.8 mg/dL (<10); Glucose 103 mg/dL (74-106); Lipase 551 U/L (73-393); Magnesium 2.1 mg/dL (1.8-2.4); Potassium 4.1 mmol/L (3.5-5.1); Sodium 138 mmol/L (136-145); Total Protein 9.1 g/dL (6.4-8.2)
[2021-07-08] MEDS: Omnipaque 350 MG/ML 100 ML BTL IJ (09:00)
--- NOTE | 2021-07-08 09:05 | DI.CT_ITS ---
Exam(s) CT ABDOMEN PELVIS W EXAM: CT ABDOMEN PELVIS W CLINICAL HISTORY: abdominal pain, n/v TECHNIQUE: COMPARISON: CT CT CHEST/ABD/PEL W from 05/08/2021 FINDINGS: CT examination of the abdomen and pelvis was performed with bolus infusion of 100 cc of Omnipaque 350 . Images obtained through the lung bases are unremarkable. The liver shows decreased attenuation consistent with hepatic steatosis. The liver may be mildly enl arged.. Spleen is unremarkable in appearance.. Gallbladder and bile ducts are unremarkable. The pancreas appears atrophic and contains multiple calcifications, mostly in the head of the pancrea s. Pancreatic duct is moderately dilated. There is moderate peripancreatic edema. The findings are consistent with acute and chronic pancreatitis.. There is marked associated dilatation and wall thickening portions of the stomach and duodenum, presu mably secondary to adjacent pancreatitis. No gross free fluid in the peritoneal cavity. No pseudocy st identified. Adrenals appear normal bilaterally. Kidneys appear normal with no evidence of renal mass, hydronephrosis, or nephrolithiasis. Unremarkab le bladder. There is no evidence of abdominal or pelvic adenopathy. Abdominal aorta is of normal diameter and no abnormality is seen involving major visceral branches.. Appendix is normal. No evidence diverticulitis or bowel obstruction. No significant abdominal wall hernia seen. Impression: The appearance is consistent with acute and chronic pancreatitis with secondary inflammation of adjac ent duodenum and stomach. No evidence of duodenal obstruction. No biliary obstruction.. RADIATION DOSE DELIVERED: 672.68mGy.cm Total DLP 672.68mGy.cm Total DLP 12.89mGy CTDIvol DATA REPOSITORY: All CT scans at this facility are submitted to the National Radiology Data Registry (NRDR) Dose Index Registry (DIR) with the [employer] (A[employer]). RADIATION OPTIMIZATION: All CT scans at this facility use at least one of these dose optimization te chniques: automated exposure control; mA and/or kV adjustment per patient size (includes targeted exa ms where dose is matched to clinical indication); or iterative reconstruction.
[2021-07-08 09:51] LABS: Lactate 1.8 mmol/L (0.6-1.4)
[2021-07-08 09:52] LABS: Bilirubin Negative (Negative); Blood Negative (Negative); Clarity Clear (Clear); Glucose Negative (Negative); Ketones 15 mg/dL (Negative); Leukocyte Esterase Negative (Negative); Nitrite Negative (Negative); Specific Gravity 1.015 (1.005-1.025); Urobilinogen 0.2 EU/dL (Up TO 0.2)
[2021-07-08 10:01] LABS: *AMPHETAMINES SCREEN URINE Negative (Negative); *BARBITURATES SCREEN URINE Negative (Negative); *BENZODIAZEPINES SCREEN URINE Negative (Negative); Cannabinoids THC Positive (Negative); Cocaine Screen,Urine Negative (Negative); METHADONE URINE SCREEN Negative (Negative); OPIATES URINE SCREEN Positive (Negative)
[2021-07-08 10:02] LABS: Bacteria Few HPF (Negative); C & S Indicated? Yes; Casts Negative LPF (Negative); Crystals Negative HPF (Negative); Epithelial Cells Rare HPF (Negative); Mucus Moderate (Negative); RBC 0-2 HPF (0-2); WBC 0-2 HPF (0-5)
[2021-07-08 10:06] LABS: Tricyclic Antidepressants Negative (Negative)
[2021-07-08] MEDS: Pantoprazole 40 MG VIAL IVP (10:52)
--- NOTE | 2021-07-08 10:53 | NUR.NOTE ---
Nursing Note: Pt reports my pain is really bad, i need help before I leave [facility], medicated IV protonix as ordered, provider notified of pt request for clonipin or ativan to help me detox at home, I cant go to rehab, cont. to monitor.
[2021-07-08 10:55] VITALS: BP 125/86; PULSE 79; RESP 18; TEMP 36.1; O2SAT 100
[2021-07-08 11:29] VITALS: BP 139/72; PULSE 84; RESP 19; TEMP 36.5; O2SAT 98
== END 2021-07-08 11:31 | disposition home or self-care (01) ==
PROVIDERS: Emergency Medicine; Emergency Provider Student in an Organized Health Care Education/Training Program; PCP Family Medicine
DX: R10.9 Unspecified abdominal pain (principal); R11.2 Nausea with vomiting, unspecified; K85.90 Acute pancreatitis without necrosis or infection, unspecified; F10.20 Alcohol dependence, uncomplicated
CPT/HCPCS: 36415; 80053; 80307; 83690; 96361; 96374; 96375; 99285; 74177; 80320; 81003; 81015; 82248; 83605; 83735; 85025; 87086; 99284; J1885; J2405; J3490

== ENCOUNTER 2021-07-12 05:10 | Emergency (ER) | payer MEDICAID, SELFPAY ==
[2021-07-12] VITALS (43 sets, daily range): BP systolic 120–171; BP diastolic 72–99; PULSE 59–80; RESP 18; TEMP 36.5; O2SAT 93–100
--- NOTE | 2021-07-12 05:19 | W.ED.GENAD ---
Discharge Plan Disposition Patient Disposition: HOME Condition: Improving Discharge Details Clinical Impression: Vomiting, Chronic abdominal pain, Acute on chronic pancreatitis Primary Care Provider: Joel Martinez ED Provider: Abigail Villafana Home Meds and New Rx's Prescriptions: New sucralfate [Carafate] 1 gram tablet 1 gm PO QACHS Qty: 14 RF: 0 ondansetron 4 mg tablet,disintegrating 4 mg PO TID PRN (Reason: nausea and vomiting) Qty: 6 RF: 0 pantoprazole [Protonix] 40 mg tablet,delayed release (DR/EC) 40 mg PO DAILY Qty: 30 RF: 0 Continued buprenorphine-naloxone 8-2 mg film 1 film SL DAILY RF: 0 pregabalin 150 mg capsule 150 mg PO BID Qty: 60 RF: 3 pantoprazole [Protonix] 40 mg tablet,delayed release (DR/EC) 40 mg PO DAILY Qty: 60 RF: 0 Discharge Instructions Instructions: Gastritis (ED), Pancreatitis (ED), Diet for Stomach Ulcers and Gastritis (ED), Alcohol Use Disorder (ED) Additional Instructions: Your lab work and imaging today revealed that you currently still have acute pancreatitis. Your lab work appears to be improving. Your symptoms may also be associated with inflammation in your stomach related to vomiting. This can also be related to an ulcer or gastroesophageal reflux disease (GERD). Drink plenty of fluids and get plenty of rest. You are being sent home with prescriptions for Protonix and carafate to take as needed and directed for abdominal pain and Zofran to take as needed injected for nausea or vomiting. Follow-up with your primary care doctor in 1 week. Follow-up with general surgery if your symptoms do not improve or worsen for further evaluation and consideration for upper endoscopy. Return to the emergency department with any worsening or new concerning symptoms. Referrals: Zoraida Fox MD [ [facility] STAFF PHYSICIAN] - Discharge Data Discharge Date/Time-TO BE ENTERED AT DEPARTURE: 07/12/21 13:49 Discharge Physician: Abigail Villafana Medical Decision Making <Arnulfo Junior MD - Last Filed: 07/12/21 07:29> Patient with worsening abdominal pain despite initially doing better after discharge from ED with acute on chronic pancreatitis. Reports no alcohol since discharge and already through withdrawal. Vomiting this morning. CP, back pain and abdominal at this point. Will place IV and give fluids, Phenergan and Toradol. He is on suboxone so opiates unlikely to be helpful. Recheck labs, EKG. Chest x-ray due to complaint of chest pain and vomiting. Will likely need admission. Medical Records Medical records reviewed: Yes I reviewed the patient's medical records. Lab Data Lab results reviewed: Yes I reviewed the patient's lab results. ECG Data Attestation: I personally reviewed and interpreted this ECG (s) as follows: <Abigail Villafana DO - Last Filed: 07/12/21 19:22> 0800 --please see Dr. Junior's note for initial presentation, exam and plan. Case endorsed to follow-up on labs and imaging and final disposition. Patient seen in the ED 4 days ago and diagnosed with acute on chronic pancreatitis and discharged home. He had a CT abdomen and pelvis on that ED visit which noted The appearance is consistent with acute and chronic pancreatitis with secondary inflammation of adjacent duodenum and stomach. No evidence of duodenal obstruction. No biliary obstruction. His last alcoholic drink was 5 days ago. 0850 -- Labs and imaging reviewed. WBC 10.86. Lactate 1.1. Troponin within normal limits. Lipase 456, decreased from 551 on 07/08/21. UA notes ketones but no evidence of infection. UDS positive for THC. Negative alcohol. CXR negative. Patient reassessed at bedside and he states his symptoms are improving but still with some pain. He states he has been vomiting all week. Mainly with pain in the upper abdomen radiating to his chest. Chest pain is now resolved. Troponin negative. EKG was unremarkable for acute findings. As his lipase is improving and his symptoms are somewhat improved at this time, do not see an indication for repeat imaging at this time. Consider alcoholic gastritis as a compounding diagnosis in addition to his acute on chronic pancreatitis which may be resolving and pain and vomiting associated with his recent alcohol withdrawal/detox. 1200 -- patient able to take sips of water and eat and admitted to improvement of the symptoms but still complains of some abdominal distention. Patient endorses that he is concerned about a bowel obstruction. Will refer for repeat in 1320 --CT notes acute on chronic pancreatitis but no bowel obstruction. Patient reassessed and he feels comfortable going home. We will send prescriptions for PPI, antiemetic and Carafate electronically to his pharmacy. He was given doses of Zofran, Carafate to go. Advised to follow up with the primary care doctor for re-evaluation. Usual and customary return precautions given prior to discharge. Medical Records Medical records reviewed: Yes I reviewed the patient's medical records. Imaging Data Radiologic Study: Radiologist's impression: XR Chest --07/12/21 Exam date and time: 07/12/2021 5:33 AM Age: 36 years old Clinical indication: Pain; Other: Cp TECHNIQUE: Imaging protocol: XR of the chest. Views: 1 view. COMPARISON: CT CHEST/ABD/PEL W 05/08/2021 4:15 PM FINDINGS: Lungs: Unremarkable. No consolidation. Pleural spaces: Unremarkable. No pleural effusion. No pneumothorax. Heart/Mediastinum: Unremarkable. No cardiomegaly. Bones/joints: Unremarkable. IMPRESSION: No acute findings. CT from 07/08/[address] ABDOMEN PELVIS W/ CLINICAL HISTORY: abdominal pain, n/v TECHNIQUE: COMPARISON: CT CT CHEST/ABD/PEL W from 05/08/2021 FINDINGS: CT examination of the abdomen and pelvis was performed with bolus infusion of 100 cc of Omnipaque 350. Images obtained through the lung bases are unremarkable. The liver shows decreased attenuation consistent with hepatic steatosis. The liver may be mildly enlarged.. Spleen is unremarkable in appearance.. Gallbladder and bile ducts are unremarkable. The pancreas appears atrophic and contains multiple calcifications, mostly in the head of the pancreas. Pancreatic duct is moderately dilated. There is moderate peripancreatic edema. The findings are consistent with acute and chronic pancreatitis.. There is marked associated dilatation and wall thickening portions of the stomach and duodenum, presumably secondary to adjacent pancreatitis. No gross free fluid in the peritoneal cavity. No pseudocyst identified. Adrenals appear normal bilaterally. Kidneys appear normal with no evidence of renal mass, hydronephrosis, or nephrolithiasis. Unremarkable bladder. There is no evidence of abdominal or pelvic adenopathy. Abdominal aorta is of normal diameter and no abnormality is seen involving major visceral branches.. Appendix is normal. No evidence diverticulitis or bowel obstruction. No significant abdominal wall hernia seen. Impression: The appearance is consistent with acute and chronic pancreatitis with secondary inflammation of adjacent duodenum and stomach. No evidence of duodenal obstruction. No biliary obstruction. CT Abdomen And Pelvis With Contrast Exam date and time: 07/12/2021 12:09 PM Age: 36 years old Clinical indication: Abdominal pain; Generalized; Patient HX: Abd pain/nausea/vomiting. ? Sbo TECHNIQUE: Imaging protocol: Computed tomography of the abdomen and pelvis with contrast. Radiation optimization: All CT scans at this facility use at least one of these dose optimization techniques: automated exposure control; mA and/or kV adjustment per patient size (includes targeted exams where dose is matched to clinical indication); or iterative reconstruction. Contrast material: [id number]; Contrast volume: 94 ml; Contrast route: INTRAVENOUS (IV); COMPARISON: CT ABDOMEN PELVIS W 07/08/2021 9:00 AM FINDINGS: Lungs: Mild basilar atelectasis. No significant airspace consolidation at the lung bases Liver: There is fatty infiltration of the liver. No new intrahepatic abnormality is identified. Gallbladder and bile ducts: There is no significant biliary ductal dilatation. Pancreas: As noted on the patient's prior examination there calcifications in the pancreatic head likely related to chronic calcific pancreatitis. There is pancreatic duct dilatation which was previously identified, it appears slightly more prominent/increased on the current examination. There is mild peripancreatic inflammation, findings are suspicious for acute pancreatitis, in the setting of also chronic calcific pancreatitis. Spleen: Spleen is unremarkable. Adrenal glands: Adrenals are unremarkable Kidneys and ureters: See Urinary bladder finding. Stomach and bowel: Non-opacified loops of bowel are unremarkable. No evidence of obstruction, mass or pneumatosis. Prominent stool is seen within the right colon. The Appendix: No findings to suggest acute appendicitis Intraperitoneal space: No free fluid focal collections or free intraperitoneal air. No new fluid collections. Vasculature: Aorta is nonaneurysmal Lymph nodes: No significant adenopathy. There are small retroperitoneal nodes which are not enlarged by size criteria. Urinary bladder: No radiopaque urinary tract calculi. No mass or hydronephrosis. No radiopaque bladder calculi. Mild bladder wall thickening Reproductive: Prostate gland, seminal vesicles are unremarkable Bones/joints: There is no new or acute bony abnormality identified. Soft tissues: Subcutaneous soft tissues are unremarkable the the IMPRESSION: 1. Pancreatic calcifications consistent with chronic calcific pancreatitis. There is inflammation in the peripancreatic fat consistent with active/acute pancreatitis. Pancreatic ductal dilatation appears slightly more prominent than on the patient's recent examination. 2. Fatty infiltration of the liver also previously noted. 3. No other new or progressive findings identified. Lab Data Lab results reviewed: Yes I reviewed the patient's lab results. Labs: Laboratory Tests Range/Units 07/12/21 07/12/21 07/12/21 05:15 05:15 05:55 WBC (4.4-10.8) 10^3/uL RBC (4.36-5.78) 10^6/uL Hgb (13.5-17.5) g/dL Hct (40.0-50.0) % MCV (80-95) fL MCH (27.0-33.0) pg MCHC (32.0-36.0) % RDW (11.8-14.1) % Plt Count (130-400) 10^3/uL MPV (8.0-11.0) fL Immature Gran % Neutrophils % Lymphocytes % Monocytes % Eosinophils % Basophils % Nucleated RBC % % Absolute Neutrophils (1.2-6.7) 10^3/uL Absolute Lymphocytes (1.2-3.4) 10^3/uL Absolute Monocytes (0.1-0.8) 10^3/uL Absolute Eosinophils (0.0-0.7) 10^3/uL Absolute Basophils (0.0-0.2) 10^3/uL VBG Lactate (0.6-1.4) mmol/L Sodium (136-145) mmol/L Potassium (3.5-5.1) mmol/L Chloride (98-107) mmol/L Carbon Dioxide (21.0-32.0) mmol/L Anion Gap (3-11) mmol/L BUN (7-18) mg/dL Creatinine (0.70-1.30) mg/dL Estimated GFR/1.73 m2 (mL/min/1.73m2) Glucose (74-106) mg/dL Calcium (8.5-10.1) mg/dL Magnesium (1.8-2.4) mg/dL Total Bilirubin (0.2-1.0) mg/dL AST (15-37) U/L ALT (16-63) U/L Alkaline Phosphatase (46-116) U/L Troponin I (<or=60) ng/L Total Protein (6.4-8.2) g/dL Albumin (3.4-5.0) g/dL Lipase (73-393) U/L Urine Color (Yellow) Yellow Urine Clarity (Clear) Clear Urine pH (5-8) 7.5 Ur Specific [place] (1.005-1.025) 1.025 Urine Protein (Negative) mg/dL Negative Urine Ketones (Negative) mg/dL 15 H Urine Blood (Negative) Negative Urine Nitrite (Negative) Negative Urine Bilirubin (Negative) Negative Urine Urobilinogen (Up TO 0.2) EU/dL 0.2 Ur Leukocyte Esterase (Negative) Negative Urine Glucose (Negative) mg/dL Negative Urine Opiates Screen (Negative) Negative Urine Methadone Screen (Negative) Negative Ur Barbiturates Screen (Negative) Negative Ur Tricyclics Screen (Negative) Negative Ur Amphetamines Screen (Negative) Negative U Benzodiazepines Scrn (Negative) Negative Urine Cocaine Screen (Negative) Negative Ur THC Screen (Negative) Positive A Ethyl Alcohol (<10) mg/dL COVID-19 Source Nasal/Nares Range/Units 07/12/21 07/12/21 07/12/21 07:35 07:35 07:35 WBC (4.4-10.8) 10^3/uL 10.86 H RBC (4.36-5.78) 10^6/uL 4.58 Hgb (13.5-17.5) g/dL 14.9 Hct (40.0-50.0) % 43.3 MCV (80-95) fL 94.5 MCH (27.0-33.0) pg 32.5 MCHC (32.0-36.0) % 34.4 RDW (11.8-14.1) % 12.8 Plt Count (130-400) 10^3/uL 267 MPV (8.0-11.0) fL 9.5 Immature Gran % 0.5 Neutrophils % 76.9 Lymphocytes % 14.4 Monocytes % 7.3 Eosinophils % 0.5 Basophils % 0.4 Nucleated RBC % % 0 Absolute Neutrophils (1.2-6.7) 10^3/uL 8.35 H Absolute Lymphocytes (1.2-3.4) 10^3/uL 1.56 Absolute Monocytes (0.1-0.8) 10^3/uL 0.79 Absolute Eosinophils (0.0-0.7) 10^3/uL 0.05 Absolute Basophils (0.0-0.2) 10^3/uL 0.04 VBG Lactate (0.6-1.4) mmol/L 1.1 Sodium (136-145) mmol/L 136 Potassium (3.5-5.1) mmol/L 3.4 L Chloride (98-107) mmol/L 98 Carbon Dioxide (21.0-32.0) mmol/L 24.2 Anion Gap (3-11) mmol/L 13.8 H BUN (7-18) mg/dL 5 L Creatinine (0.70-1.30) mg/dL 0.9 Estimated GFR/1.73 m2 (mL/min/1.73m2) >= 60.00 Glucose (74-106) mg/dL 119 H Calcium (8.5-10.1) mg/dL 9.9 Magnesium (1.8-2.4) mg/dL 2.1 Total Bilirubin (0.2-1.0) mg/dL 0.5 AST (15-37) U/L 50 H ALT (16-63) U/L 61 Alkaline Phosphatase (46-116) U/L 133 H Troponin I (<or=60) ng/L < 50 Total Protein (6.4-8.2) g/dL 8.6 H Albumin (3.4-5.0) g/dL 4.4 Lipase (73-393) U/L 456 H Urine Color (Yellow) Urine Clarity (Clear) Urine pH (5-8) Ur Specific [place] (1.005-1.025) Urine Protein (Negative) mg/dL Urine Ketones (Negative) mg/dL Urine Blood (Negative) Urine Nitrite (Negative) Urine Bilirubin (Negative) Urine Urobilinogen (Up TO 0.2) EU/dL Ur Leukocyte Esterase (Negative) Urine Glucose (Negative) mg/dL Urine Opiates Screen (Negative) Urine Methadone Screen (Negative) Ur Barbiturates Screen (Negative) Ur Tricyclics Screen (Negative) Ur Amphetamines Screen (Negative) U Benzodiazepines Scrn (Negative) Urine Cocaine Screen (Negative) Ur THC Screen (Negative) Ethyl Alcohol (<10) mg/dL < 3.0 COVID-19 Source ECG Data Attestation: I personally reviewed and interpreted this ECG (s) as follows: Interpretation: Rate of 54, sinus, peaked T waves in inferior and anterior lateral leads which is seen in but more prominent compared to previous EKG. No STEMI. HPI <Arnulfo Junior MD - Last Filed: 07/12/21 07:29> General Mode of arrival: ambulatory. Date/Time Provider Initiated Documentation: 07/12/21 05:11. Limitations to Documentation: no limitations. Information obtained by: patient, RN notes reviewed and old records reviewed. HPI Narrative: Patient returns to ED with worsening abdominal pain. Patient seen here Wednesday and diagnosed with acute on chronic pancreatitis. Home on Protonix and clear liquids. Seems to be better for the first couple of days but worse in the last 24 hours. Has not had any alcohol since last visit to ED. Reports he has already gone through withdrawal and has not a problem. Pain is worse radiating to the back and into the chest. Has had sweats and felt hot but never actually took his temperature. Vomited this morning. Related Data Home Medications Medication Instructions Recorded Confirmed buprenorphine 8 mg-naloxone 2 mg 1 film SL DAILY 11/22/19 07/12/21 sublingual film pregabalin 150 mg capsule 150 mg PO BID #60 cap 07/03/21 07/12/21 pantoprazole [Protonix] 40 mg PO DAILY #60 tab 07/08/21 07/12/21 ondansetron 4 mg PO TID PRN #6 tab 07/12/21 pantoprazole [Protonix] 40 mg PO DAILY #30 tab 07/12/21 sucralfate [Carafate] 1 gm PO QACHS #14 tab 07/12/21 Previous Rx's Medication Instructions Recorded pregabalin 150 mg capsule 150 mg PO BID #60 cap 07/03/21 pantoprazole [Protonix] 40 mg PO DAILY #60 tab 07/08/21 ondansetron 4 mg PO TID PRN #6 tab 07/12/21 pantoprazole [Protonix] 40 mg PO DAILY #30 tab 07/12/21 sucralfate [Carafate] 1 gm PO QACHS #14 tab 07/12/21 Allergies Allergy/AdvReac Type Severity Reaction Status Date / Time No Known Allergies Allergy Verified 07/12/21 05:22 General KAVEH: 3 Review of Systems <Arnulfo Junior MD - Last Filed: 07/12/21 07:29> Narrative: 04/10 Review of Systems completed and is negative except as stated above in HPI (Systems reviewed: Const, Eyes, ENT, Resp, CV, GI, , MSK, Skin, Neuro) PFSH <Arnulfo Junior MD - Last Filed: 07/12/21 07:29> All Active Problems (Updated 07/12/21 @ 13:27 by Abigail Villafana DO) Vomiting (Acute) Chronic abdominal pain (Acute) Acute on chronic pancreatitis (Acute) Abdominal pain (Acute) Acute pancreatitis (Acute) Contusion of right knee (Acute) Lyme disease (Acute) Abrasion (Acute) Trauma (Acute) Inflammatory arthritis (Acute) Alcoholic ketoacidosis (Acute) Vomiting (Acute) Abdominal pain (Acute) Alcoholic ketoacidosis (Acute) Abdominal pain with vomiting (Acute) Depression with anxiety (Acute) Family history of schizophrenia (Chronic) Father Migraine with aura (Acute) Homeless (Acute) Colitis (Acute) Alcoholic fatty liver (Acute) Nausea and vomiting (Acute) Hypoglycemia (Acute) Severe depression (Chronic) Delirium (Acute) Alcohol abuse (Chronic) Heroin abuse (Chronic) Elevated transaminase level (Acute) Chronic back pain (Chronic) Anxiety, generalized (Chronic) Medical History Depression History of alcohol abuse Opiate addiction Surgical History No significant past surgical history Family History Mother Heart disease Asthma Father No problems noted. Sister Asthma Sister No problems noted. Brother No problems noted. Grandfather Essential hypertension Heart disease Asthma Grandfather Essential hypertension Heart disease Grandmother No problems noted. Grandmother No problems noted. Son No problems noted. Daughter No problems noted. Daughter Asthma Social History Smoking/Tobacco Use Status: Current every day Tobacco Type: cigarettes Smoking risk assessment performed?: Yes Alcohol Intake: current Alcohol Intake frequency: 3 or more drinks per day Alcohol type: hard liquor Counseling provided: other Drug use: Occasionally Substance use type: former substance user and marijuana Details: middle of the night. Denies any Heroin use. 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 HEENT: NC/AT. Normal facial exam. Eyes: Normal conjunctiva and sclera. Neck: Supple. Trachea midline. Lungs: Normal respiratory effort. Lungs are clear. Cor: RRR without murmur/gallop. Good radial pulses. GI: Soft. ND. Tender in the epigastric area. No guarding. Neuro: A+O x 3. Normal speech, mentation, gait. Cranial nerves II - XII grossly intact. No gross motor or sensory deficit. Ext: No C/C/E. Skin: Warm and dry. Sign Out <Arnulfo Junior MD - Last Filed: 07/12/21 07:29> Sign Out Data: Sign Out Comment: difficulty getting access; labs pending Last updated by Arnulfo Junior MD at 07/12/21 07:59
--- NOTE | 2021-07-12 05:30 | DI.RAD_ITS ---
Exam(s) XR PORTABLE CHEST AP EXAM: XR PORTABLE CHEST AP CLINICAL HISTORY: cp. TECHNIQUE: 2D digital imaging was performed. COMPARISON: No exams were available for comparison FINDINGS: Heart size is upper normal. The mediastinum is not widened. Lungs are clear. No infiltrates nor obvious pleural effusions. IMPRESSION: No acute pulmonary findings on this single AP portable view of the chest. DATA REPOSITORY: RADIATION DOSE DELIVERED: All CT scans at this facility use at least one of these dose optimization techniques: automated exposure control; mA and/or kV adjustment per patient size (includes targeted e xams where dose is matched to clinical indication); or iterative reconstruction.
--- NOTE | 2021-07-12 05:30 | RT.EKG_ITS ---
APPROVED REPORT Exam: Resting ECG Reason for Exam: Patient Location: E HR:54 bpm ECG Measurements Heart Rate 54 AXIS TN 181 P 54 QRSd 71 QRS 77 QT 443 T 72 QTc 419 Conclusion Slow sinus arrhythmia...V-rate 43- 60, mean< 60 Normal Britt There are no significant changes compared to prior EKG performed on 01/09/2021 at 13:36.
[2021-07-12 06:13] LABS: Source Nasal/Nares
[2021-07-12 06:24] LABS: Bilirubin Negative (Negative); Blood Negative (Negative); Clarity Clear (Clear); Glucose Negative (Negative); Ketones 15 mg/dL (Negative); Leukocyte Esterase Negative (Negative); Nitrite Negative (Negative); Specific Gravity 1.025 (1.005-1.025); Urobilinogen 0.2 EU/dL (Up TO 0.2); pH 7.5 (5-8)
[2021-07-12 06:54] LABS: *AMPHETAMINES SCREEN URINE Negative (Negative); *BARBITURATES SCREEN URINE Negative (Negative); *BENZODIAZEPINES SCREEN URINE Negative (Negative); Cannabinoids THC Positive (Negative); Cocaine Screen,Urine Negative (Negative); METHADONE URINE SCREEN Negative (Negative); OPIATES URINE SCREEN Negative (Negative); Tricyclic Antidepressants Negative (Negative)
--- NOTE | 2021-07-12 07:42 | DI.VRAD_ITS ---
PROCEDURE INFORMATION: Exam: XR Chest Exam date and time: 07/12/2021 5:33 AM Age: 36 years old Clinical indication: Pain; Other: Cp TECHNIQUE: Imaging protocol: XR of the chest. Views: 1 view. COMPARISON: CT CHEST/ABD/PEL W 05/08/2021 4:15 PM FINDINGS: Lungs: Unremarkable. No consolidation. Pleural spaces: Unremarkable. No pleural effusion. No pneumothorax. Heart/Mediastinum: Unremarkable. No cardiomegaly. Bones/joints: Unremarkable. IMPRESSION: No acute findings. Dictated and Authenticated by: Igor Laird MD. Ordering:LASHAY Arredondo MD
[2021-07-12 07:50] LABS: Lactate 1.1 mmol/L (0.6-1.4)
[2021-07-12] MEDS: Normal Saline Flush 10 ML SYR IVP ×3 (07:50→12:30)
[2021-07-12] MEDS: Lactated Ringers 1,000 ML 1000 ML IV (07:51)
[2021-07-12 07:56] LABS: Abs Immature Grans 0.05 10^3/uL (0.0-0.06); Absolute Basophil Count 0.04 10^3/uL (0.0-0.2); Absolute Eosinophil Count 0.05 10^3/uL (0.0-0.7); Absolute Lymphocyte Count 1.56 10^3/uL (1.2-3.4); Absolute Monocyte Count 0.79 10^3/uL (0.1-0.8); Basophils % 0.4; Eosinophils % 0.5; HCT 43.3 % (40.0-50.0); HGB 14.9 g/dL (13.5-17.5); Immature Grans % 0.5; Lymphocytes % 14.4; MCH 32.5 pg (27.0-33.0); MCHC 34.4 % (32.0-36.0); MCV 94.5 fL (80-95); MPV 9.5 fL (8.0-11.0); Monocytes % 7.3; Neutrophils % 76.9; Nucleated RBC 0 %; Platelet Count 267 10^3/uL (130-400); RBC 4.58 10^6/uL (4.36-5.78); RDW 12.8 % (11.8-14.1); RDW-SD 44.3 fL; WBC 10.86 10^3/uL (4.4-10.8)
[2021-07-12 08:00] LABS: Absolute Neutrophil Count 8.35 10^3/uL (1.2-6.7)
[2021-07-12 08:16] LABS: ALT 61 U/L (16-63); AST 50 U/L (15-37); Albumin 4.4 g/dL (3.4-5.0); Alkaline Phosphatase 133 U/L (46-116); Anion Gap 13.8 mmol/L (3-11); BUN 5 mg/dL (7-18); Bilirubin, Total 0.5 mg/dL (0.2-1.0); CO2 24.2 mmol/L (21.0-32.0); CREATININE 0.9 mg/dL (0.70-1.30); Calcium 9.9 mg/dL (8.5-10.1); Chloride 98 mmol/L (98-107); Glucose 119 mg/dL (74-106); Lipase 456 U/L (73-393); Magnesium 2.1 mg/dL (1.8-2.4); Potassium 3.4 mmol/L (3.5-5.1); Sodium 136 mmol/L (136-145); Total Protein 8.6 g/dL (6.4-8.2)
[2021-07-12 08:17] LABS: ETHANOL BLOOD < 3.0 mg/dL (<10); Troponin I < 50 ng/L (<or=60)
[2021-07-12] MEDS: Ketorolac 30 MG/ML VIAL IVP (08:18)
[2021-07-12] MEDS: Sucralfate 1 GM TAB PO (09:32)
[2021-07-12] MEDS: LORazepam 2 MG/ML VIAL 0.5 MG IVP (09:33)
[2021-07-12] MEDS: FAMOTIDINE 20 MG/50 ML BAG 200 MG IVPB (09:33)
--- NOTE | 2021-07-12 12:00 | DI.CT_ITS ---
Exam(s) CT ABDOMEN PELVIS W EXAM: CT ABDOMEN PELVIS W CLINICAL HISTORY: abdominal pain, nausea, constipation. TECHNIQUE: Imaging Protocol: Axial computed tomography images with coronal and sagittal reformatted images were created and reviewed CONTRAST MATERIAL: Intravenous: Omnipaque 94cc Oral: None COMPARISON: CT CT ABDOMEN PELVIS W from 07/08/2021 FINDINGS: VISUALIZED LUNG BASES: Mild increased markings in the posterior basal segment of both lower lobes but no pleural effusions.. ABDOMEN: There is no ascites in the upper abdomen. LIVER: Hepatic steatosis again noted. No discrete new focal hepatic lesions. Subcapsular finding in the medial aspect of the right hepatic lobe is again noted and most probably related to 5 more profo und fatty parenchymal change. GALLBLADDER/BILIARY: No obvious gallbladder pathology. CBD is not dilated. PANCREAS: Multilevel parenchymal calcifications are again noted in the pancreatic head and tail and t here is dilatation of the pancreatic duct to a diameter of 7-8 millimeters. Duct in the uncinate pro cess is not dilated. The dilatation of the duct appears proximal to the largest group of calcificati ons which is in the pancreatic head. There is mild peripancreatic streaking noted consistent with an element of pancreatitis. Splenic vein behind the pancreas remains patent. There is no pseudoaneury sm of the gastroduodenal mCi gastro duodenal artery. Spleen size is normal. There is no evidence of pancreatic pseudocyst SPLEEN: Spleen is not enlarged. No obvious intrasplenic lesions. Splenic and portal veins are paten t. ADRENALS: There are no significant adrenal masses. KIDNEYS:No cysts evident. No solid renal masses. No calculi nor hydronephrosis.. ABDOMINAL AORTA: Abdominal aorta is not enlarged. LYMPH NODES:There is no retroperitoneal nor paraaortic adenopathy. ABDOMINAL WALL: No evidence of significant anterior abdominal wall nor inguinal hernia. GI: There is no evidence of bowel obstruction, free air, nor abscess. PELVIS: GI: No evidence of appendicitis.No evidence of sigmoid diverticulitis. LYMPH NODES: There is no intrapelvic nor inguinal adenopathy. REPRODUCTIVE: Prostate gland is not enlarged. Seminal vesicles unremarkable although there is small amount of fluid adjacent to the right side of the seminal vesicles. This was not previously present. URINARY BLADDER: No calculi nor obvious masses evident OSSEOUS: No significant osseous lesions. IMPRESSION: 1. Again noted are prominent pancreatic calcifications in the pancreatic head with pancreatic duct di latation again noted and mild peripancreatic streaking consistent with acute pancreatitis superimpose d upon an element of chronic pancreatitis. Also calcifications noted in the pancreatic tail. Althou gh there is no obvious discrete mass evident in the pancreas, a subtle ductal lesion cannot be exclud ed. There is no evidence of pancreatic pseudocyst although there is a small amount of free fluid in the lower right pelvis which was not previously present 4 days ago. 2. Hepatic steatosis is again noted. 3. No significant findings in the kidneys. No splenomegaly. 4. RADIATION DOSE DELIVERED: 629.99mGy.cm Total DLP DATA REPOSITORY: All CT scans at this facility are submitted to the National Radiology Data Registry (NRDR) Dose Index Registry (DIR) with the [employer] ([employer]). RADIATION OPTIMIZATION: All CT scans at this facility use at least one of these dose optimization te chniques: automated exposure control; mA and/or kV adjustment per patient size (includes targeted exa ms where dose is matched to clinical indication); or iterative reconstruction.
--- NOTE | 2021-07-12 12:08 | NUR.NOTE ---
Nursing Note: Pt tolerated water, chicken broth, and jello. States he does not feel nauseas but I didn't come here for that, I came here because my stomach is swollen and nothings moving . made aware
[2021-07-12] MEDS: Normal Saline 100 ML BAG IJ (12:26)
[2021-07-12] MEDS: Omnipaque 350 MG/ML 100 ML BTL IJ (12:29)
[2021-07-12 12:35] LABS: COVID-19 PCR Negative (Negative)
--- NOTE | 2021-07-12 12:45 | DI.VRAD_ITS ---
PROCEDURE INFORMATION: Exam: CT Abdomen And Pelvis With Contrast Exam date and time: 07/12/2021 12:09 PM Age: 36 years old Clinical indication: Abdominal pain; Generalized; Patient HX: Abd pain/nausea/vomiting. ? Sbo TECHNIQUE: Imaging protocol: Computed tomography of the abdomen and pelvis with contrast. Radiation optimization: All CT scans at this facility use at least one of these dose optimization techniques: automated exposure control; mA and/or kV adjustment per patient size (includes targeted exams where dose is matched to clinical indication); or iterative reconstruction. Contrast material: [id number]; Contrast volume: 94 ml; Contrast route: INTRAVENOUS (IV); COMPARISON: CT ABDOMEN PELVIS W 07/08/2021 9:00 AM FINDINGS: Lungs: Mild basilar atelectasis. No significant airspace consolidation at the lung bases Liver: There is fatty infiltration of the liver. No new intrahepatic abnormality is identified. Gallbladder and bile ducts: There is no significant biliary ductal dilatation. Pancreas: As noted on the patient's prior examination there calcifications in the pancreatic head likely related to chronic calcific pancreatitis. There is pancreatic duct dilatation which was previously identified, it appears slightly more prominent/increased on the current examination. There is mild peripancreatic inflammation, findings are suspicious for acute pancreatitis, in the setting of also chronic calcific pancreatitis. Spleen: Spleen is unremarkable. Adrenal glands: Adrenals are unremarkable Kidneys and ureters: See Urinary bladder finding. Stomach and bowel: Non-opacified loops of bowel are unremarkable. No evidence of obstruction, mass or pneumatosis. Prominent stool is seen within the right colon. The Appendix: No findings to suggest acute appendicitis Intraperitoneal space: No free fluid focal collections or free intraperitoneal air. No new fluid collections. Vasculature: Aorta is nonaneurysmal Lymph nodes: No significant adenopathy. There are small retroperitoneal nodes which are not enlarged by size criteria. Urinary bladder: No radiopaque urinary tract calculi. No mass or hydronephrosis. No radiopaque bladder calculi. Mild bladder wall thickening Reproductive: Prostate gland, seminal vesicles are unremarkable Bones/joints: There is no new or acute bony abnormality identified. Soft tissues: Subcutaneous soft tissues are unremarkable the the IMPRESSION: 1. Pancreatic calcifications consistent with chronic calcific pancreatitis. There is inflammation in the peripancreatic fat consistent with active/acute pancreatitis. Pancreatic ductal dilatation appears slightly more prominent than on the patient's recent examination. 2. Fatty infiltration of the liver also previously noted. 3. No other new or progressive findings identified. Dictated and Authenticated by: Kendra Garcia MD. Ordering:SCOTT Hayes MD
== END 2021-07-12 13:49 | disposition home or self-care (01) ==
PROVIDERS: Emergency Medicine; Emergency Provider Physician Assistant; PCP Family Medicine
DX: K85.90 Acute pancreatitis without necrosis or infection, unspecified (principal); K86.1 Other chronic pancreatitis; R10.9 Unspecified abdominal pain; G89.29 Other chronic pain; R11.10 Vomiting, unspecified; K59.00 Constipation, unspecified
CPT/HCPCS: 80053; 80307; 83690; 87635; 93005; 96374; 96375; 99285; 71045; 74177; 80320; 81003; 83605; 83735; 84484; 85025; 93010; 99284; J1885; J2060; J3490

== ENCOUNTER 2022-01-13 15:47 | Emergency (ER) | payer MEDICAID, SELFPAY ==
[2022-01-13 15:25] VITALS: BP 120/64; PULSE 80; RESP 18; TEMP 36.1; O2SAT 98
--- NOTE | 2022-01-13 15:32 | ED.GENADUL_ITS ---
Discharge Plan Disposition Patient Disposition: HOME Condition: Improving Discharge Details Clinical Impression: Abdominal pain, vomiting, and diarrhea Primary Care Provider: Joel Martinez ED Provider: Abigail Villafana Home Meds and New Rx's Prescriptions: New sucralfate [Carafate] 1 gram tablet 1 gm PO QACHS Qty: 14 0RF famotidine [Pepcid] 20 mg tablet 20 mg PO DAILY Qty: 14 0RF promethazine 25 mg tablet 25 mg PO TID PRN (Reason: nausea and vomiting) Qty: 7 0RF Continued buprenorphine-naloxone 8-2 mg film 1 film SL DAILY pregabalin 150 mg capsule 150 mg PO BID Qty: 60 3RF pantoprazole [Protonix] 40 mg tablet,delayed release (DR/EC) 40 mg PO DAILY Qty: 60 0RF sucralfate [Carafate] 1 gram tablet 1 gm PO QACHS Qty: 14 0RF ondansetron 4 mg tablet,disintegrating 4 mg PO TID PRN (Reason: nausea and vomiting) Qty: 6 0RF pantoprazole [Protonix] 40 mg tablet,delayed release (DR/EC) 40 mg PO DAILY Qty: 30 0RF Discharge Instructions Instructions: Abdominal Pain (ED) Additional Instructions: Your CT scan today revealed chronic pancreatitis but your lab work is reassuring and shows no evidence of acute pancreatitis. Your CT scan also noted possible duodenitis which may be an inflammation of your small intestine in the setting of a viral illness. As you have vomiting, this is best treated with fluids, rest, and antinausea medication. Prescriptions for Pepcid, Phenergan and Carafate have been sent electronically to your mail delivery pharmacy. Drink plenty of fluids and get plenty of rest. Follow-up with your primary care doctor in 1 week and for referral to general surgery if your symptoms do not improve or worsen for further evaluation as needed. Return to the emergency department with any worsening or new concerning symptoms. Referrals: Zoraida Fox MD [ [facility] STAFF PHYSICIAN] - Discharge Data Discharge Date/Time-TO BE ENTERED AT DEPARTURE: 01/13/22 20:39 Discharge Physician: Abigail Villafana Medical Decision Making 36-year-old male with history of polysubstance abuse, pancreatitis, anxiety and depression presents with epigastric abdominal pain, nausea, vomiting and near sy ncope and syncopal episodes over the past few days. Vitals within normal limits. Patient appears diaphoretic and uncomfortable. Repeat oral temp in room 98.4. His abdomen is diffusely tender but worse in the epigastrium. Differential diagnosis includes pancreatitis, gastroenteritis, cholecystitis, appendicitis, GERD, PUD, ACS. History and presentation does not appear consistent with PE or dissection. Will obtain screening labs, CT abdomen and pelvis, give Phenergan, IV Tylenol, GI cocktail and reassess. Labs and imaging reviewed. White blood cell count 17. Bicarb 19. Anion gap 21. Lipase within normal limits. Troponin negative. Mild elevation of transaminases which is his baseline. Alcohol level 57. Ct notes: IMPRESSION: 1. Chronic calcific pancreatitis with mild-moderate atrophy of the pancreas and mild irregular distension of the pancreatic duct through the body and much of the tail. Peripancreatic fat stranding in keeping with superimposed acute pancreatitis. 2. Apparent mural thickening through the proximal duodenum with adjacent hazy fat stranding suggesting possible secondary acute duodenitis, uncertain finding. 3. Probable fatty infiltration of the liver, difficult to confidently diagnose by CT imaging after administration of intravenous contrast. 4. Possible mild mural thickening suggested through the partially collapsed descending colon, sigmoid colon, and rectum. Artifact of incomplete distention is suspected. Acute proctocolitis could probably mimic this appearance. Clinical correlation is recommended. BMP rechecked after IV fluids and significantly improved. Patient had a repeat glucose of 59. He was able to drink juice and eat crackers and felt much better and felt good to go home. Advised to increase fluids, rest and a bland diet. Prescriptions for Phenergan, Carafate and Pepcid sent electronically to his pharmacy. He was given Carafate and Phenergan to go. Advised to follow up with the primary care doctor for re-evaluation. Usual and customary return precautions given prior to discharge. Medical Records Medical records reviewed: Yes I reviewed the patient's medical records. Imaging Data Radiologic Study: Radiologist's impression: CT Abdomen And Pelvis With Contrast Exam date and time: 01/13/2022 5:54 PM Age: 36 years old Clinical indication: Other: Abd pain, vomiting; Additional info: R/O appendicitis, colitis, sbo TECHNIQUE: Imaging protocol: Computed tomography of the abdomen and pelvis with contrast. Radiation optimization: All CT scans at this facility use at least one of these dose optimization techniques: automated exposure control; mA and/or kV adjustment per patient size (includes targeted exams where dose is matched to clinical indication); or iterative reconstruction. Contrast material: OMNIPAQUE 350; Contrast volume: 100 ml; Contrast route: INTRAVENOUS (IV);? COMPARISON: CT ABDOMEN PELVIS W 07/12/2021 12:19 PM FINDINGS: Lungs: Minimal dependent atelectasis. Liver: Probable fatty infiltration of the liver, difficult to confidently diagnose by CT imaging after administration of intravenous contrast. Gallbladder and bile ducts: Normal appearing gallbladder. No calcified gallstones. No biliary dilatation. Pancreas: Mild-moderate pancreatic atrophy. Numerous coarse pancreatic calcifications suggesting chronic calcific pancreatitis. Mild irregular distention of the pancreatic duct through the body and much of the tail. Mild peripancreatic fat stranding suggesting superimposed acute pancreatitis. Spleen: Normal appearing spleen. Adrenal glands: Normal appearing adrenal glands. Kidneys and ureters: 1 mm nonobstructing left renal calculus. Otherwise normal-appearing kidneys. No hydronephrosis. No obstructing ureteral stones. Stomach and bowel: No oral contrast. Stomach partially decompressed. Mild hazy fat stranding adjacent to the proximal duodenum. No small bowel dilatation to suggest obstruction. Mild mural thickening suggested through the partially collapsed descending colon, sigmoid colon, and rectum. Artifact of incomplete distention? Acute segmental colitis/proctocolitis? Mild prominence of the perirectal veins suggesting probable hemorrhoids. Appendix: Normal appendix. Intraperitoneal space: No gross ascites or free air. Vasculature: Normal caliber abdominal aorta. Lymph nodes: No pathologically enlarged mesenteric, retroperitoneal, or pelvic sidewall lymph nodes. Urinary bladder: Normal appearing urinary bladder. Reproductive: Normal-appearing prostate gland and seminal vesicles. Bones/joints: No acute fracture seen among the bones of the abdomen or pelvis. Soft tissues: Small fat containing left inguinal region hernia. IMPRESSION: 1. Chronic calcific pancreatitis with mild-moderate atrophy of the pancreas and mild irregular distension of the pancreatic duct through the body and much of the tail. Peripancreatic fat stranding in keeping with superimposed acute pancreatitis. 2. Apparent mural thickening through the proximal duodenum with adjacent hazy fat stranding suggesting possible secondary acute duodenitis, uncertain finding. 3. Probable fatty infiltration of the liver, difficult to confidently diagnose by CT imaging after administration of intravenous contrast. 4. Possible mild mural thickening suggested through the partially collapsed descending colon, sigmoid colon, and rectum. Artifact of incomplete distention is suspected. Acute proctocolitis could probably mimic this appearance. Clinical correlation is recommended. Lab Data Lab results reviewed: Yes I reviewed the patient's lab results. Labs: Laboratory Tests Range/Units 01/13/22 01/13/22 01/13/22 15:35 15:35 15:35 WBC (4.4-10.8) 10^3/uL 17.47 H RBC (4.36-5.78) 10^6/uL 4.55 Hgb (13.5-17.5) g/dL 15.3 Hct (40.0-50.0) % 42.4 MCV (80-95) fL 93 MCH (27.0-33.0) pg 33.6 H MCHC (32.0-36.0) % 36.1 H RDW (11.8-14.1) % 11.9 Plt Count (130-400) 10^3/uL 238 MPV (8.0-11.0) fL 9.3 Immature Gran % 0.5 Neutrophils % 80.8 Lymphocytes % 11.8 Monocytes % 6.5 Eosinophils % 0.1 Basophils % 0.3 Nucleated RBC % (0.0-0.3) % 0.0 Absolute Neutrophils (1.2-6.7) 10^3/uL 14.12 H Absolute Lymphocytes (1.2-3.4) 10^3/uL 2.06 Absolute Monocytes (0.1-0.8) 10^3/uL 1.14 H Absolute Eosinophils (0.0-0.7) 10^3/uL 0.02 Absolute Basophils (0.0-0.2) 10^3/uL 0.05 Sodium (136-145) mmol/L 136 Potassium (3.5-5.1) mmol/L 3.6 Chloride (98-107) mmol/L 96 L Carbon Dioxide (21.0-32.0) mmol/L 19.0 L Anion Gap (3-11) mmol/L 21.0 H BUN (7-18) mg/dL 12 Creatinine (0.70-1.30) mg/dL 0.8 Estimated GFR/1.73 m2 (mL/min/1.73m2) >= 60.00 Glucose (74-106) mg/dL 64 L Calcium (8.5-10.1) mg/dL 9.3 Magnesium (1.8-2.4) mg/dL 1.9 Total Bilirubin (0.2-1.0) mg/dL 0.7 AST (15-37) U/L 73 H ALT (16-63) U/L 66 H Alkaline Phosphatase (46-116) U/L 107 Troponin I (<or=60) ng/L < 50 Total Protein (6.4-8.2) g/dL 7.9 Albumin (3.4-5.0) g/dL 4.5 Lipase (73-393) U/L 121 Ethyl Alcohol (<10) mg/dL 57.1 H Cancelled ECG Data Attestation: I personally reviewed and interpreted this ECG (s) as follows: Interpretation: rate of 71, sinus, normal axis, no STEMI. HPI General Mode of arrival: ambulatory . Date/Time Provider Initiated Documentation: 01/13/22 16:05 . Limitations to Documentation: no limitations . Information obtained by: patient . HPI Narrative: Patient is a 36-year-old male with a history of polysubstance abuse, pancreatitis, anxiety and depression who presents with abdominal pain and nausea and vomiting over the past 2 days. He states pain feels different than his usual pancreatitis and that it is more severe and associated with frequent nausea and vomiting. Patient states he did drink 3 beers today. He states his pain is in the epigastrium, sharp, constant. He states he has been vomiting every time he attempts to drink or eat anything. He states the vomiting initially with food and is now clear and bile. He denies any fever, cough, chest pain, urinary symptoms or diarrhea. He has not taken any medication for pain. Related Data Home Medications Medication Instructions Recorded Confirmed buprenorphine 8 mg-naloxone 2 mg 1 film sublingual DAILY 11/22/19 01/13/22 sublingual film pregabalin 150 mg capsule 150 mg PO BID #60 caps 07/03/21 01/13/22 pantoprazole 40 mg tablet,delayed 40 mg PO DAILY #60 tabs 07/08/21 01/13/22 release (Protonix) ondansetron 4 mg disintegrating 4 mg PO TID PRN nausea and 07/12/21 01/13/22 tablet vomiting #6 tabs pantoprazole 40 mg tablet,delayed 40 mg PO DAILY #30 tabs 07/12/21 01/13/22 release (Protonix) sucralfate 1 gram tablet (Carafate) 1 gm PO QACHS #14 tabs 07/12/21 01/13/22 famotidine 20 mg tablet (Pepcid) 20 mg PO DAILY #14 tabs 01/13/22 promethazine 25 mg tablet 25 mg PO TID PRN nausea and 01/13/22 vomiting #7 tabs sucralfate 1 gram tablet (Carafate) 1 gm PO QACHS #14 tabs 01/13/22 Previous Rx's Medication Instructions Recorded pregabalin 150 mg capsule 150 mg PO BID #60 caps 07/03/21 pantoprazole 40 mg tablet,delayed 40 mg PO DAILY #60 tabs 07/08/21 release (Protonix) ondansetron 4 mg disintegrating 4 mg PO TID PRN nausea and 07/12/21 tablet vomiting #6 tabs pantoprazole 40 mg tablet,delayed 40 mg PO DAILY #30 tabs 07/12/21 release (Protonix) sucralfate 1 gram tablet (Carafate) 1 gm PO QACHS #14 tabs 07/12/21 famotidine 20 mg tablet (Pepcid) 20 mg PO DAILY #14 tabs 01/13/22 promethazine 25 mg tablet 25 mg PO TID PRN nausea and 01/13/22 vomiting #7 tabs sucralfate 1 gram tablet (Carafate) 1 gm PO QACHS #14 tabs 01/13/22 Allergies Allergy/AdvReac Type Severity Reaction Status Date / Time No Known Allergies Allergy Verified 07/12/21 05:22 General Stated Complaint: Abd Prob KAVEH: 3 Review of Systems All systems reviewed & are unremarkable except as noted in HPI and below Constitutional Constitutional: Denies chills, Denies excessive sweating, Denies fatigue, Denies fever(s), Denies weakness and Denies weight loss Eyes Eyes: Reports system reviewed and no additional complaints, except as documented and Denies blurry vision ENT Ears, Nose, Mouth, and Throat: Denies vertigo, Denies dizziness, Denies otalgia, Denies nasal congestion, Denies sore throat and Denies throat swelling Cardiovascular Cardiovascular: Denies chest pain, Denies syncope, Denies rapid heart rate and Denies dyspnea Respiratory Respiratory: Denies chest congestion, Denies cough, Denies pain on inspiration and Denies dyspnea Gastrointestinal Gastrointestinal: Reports abdominal pain, Denies diarrhea, Reports nausea and Reports vomiting Genitourinary Genitourinary: Denies hematuria, Denies dysuria and Denies flank pain Musculoskeletal Musculoskeletal: Denies back pain and Denies joint swelling Integumentary/Breasts Skin/Breast: Denies lesions and Denies rash Neurologic Neurologic: Denies behavioral changes, Denies confusion, Denies vertigo, Denies dizziness, Denies syncope, Denies localized weakness and Denies weakness Psychiatric Psychiatric: Denies behavioral changes, Denies confusion and Denies depression Endocrine Endocrine: Denies excessive sweating and Denies fatigue Hematologic/Lymphatic Hematologic/Lymphatic: Denies easy bruising and Denies lymphadenopathy Allergic/Immunologic Allergic/Immunologic: Denies throat swelling PFSH All Active Problems (Updated 01/13/22 @ 19:45 by Abigail Villafana DO) Abdominal pain, vomiting, and diarrhea (Acute) Contusion of right knee (Acute) Lyme disease (Acute) Abrasion (Acute) Trauma (Acute) Inflammatory arthritis (Acute) Alcoholic ketoacidosis (Acute) Vomiting (Acute) Abdominal pain (Acute) Alcoholic ketoacidosis (Acute) Abdominal pain with vomiting (Acute) Depression with anxiety (Acute) Family history of schizophrenia (Chronic) Father Migraine with aura (Acute) Homeless (Acute) Colitis (Acute) Alcoholic fatty liver (Acute) Nausea and vomiting (Acute) Hypoglycemia (Acute) Severe depression (Chronic) Delirium (Acute) Alcohol abuse (Chronic) Heroin abuse (Chronic) Elevated transaminase level (Acute) Chronic back pain (Chronic) Anxiety, generalized (Chronic) Medical History Depression History of alcohol abuse Opiate addiction Surgical History No significant past surgical history Family History Mother Heart disease Asthma Father No problems noted. Sister Asthma Sister No problems noted. Brother No problems noted. Grandfather Essential hypertension Heart disease Asthma Grandfather Essential hypertension Heart disease Grandmother No problems noted. Grandmother No problems noted. Son No problems noted. Daughter No problems noted. Daughter Asthma Social History Smoking/Tobacco Use Status: Current every day Tobacco Type: cigarettes Smoking risk assessment performed?: Yes Alcohol Intake: current Alcohol Intake frequency: 3 or more drinks per day Alcohol type: hard liquor Counseling provided: other Drug use: Occasionally Substance use type: former substance user and marijuana Details: middle of the night. Denies any Heroin use. Housing: apartment Number of Children: 3 What type of physical activity do you participate in: none Drive intox or ride w/intox train driver: No Working smoke detector in home: Yes Carbon monox detector in home: Yes Do you feel safe at home: Yes Do you feel safe in your relationship?: Yes Exam Const General: uncomfortable and diaphoretic Orientation: alert, awake and oriented x3 HENMT Head: normal to inspection Ears: hearing grossly normal bilaterally and external ears normal General nose exam: external nose normal Face and sinus: normal facial exam Mouth: oral mucosae normal Teeth and gingiva: poor dentition Throat: posterior oropharynx normal Eyes General: appearance normal, both eyes and all related structures Eyelids: eyelids normal Pupils: PERRL EOM: EOM intact bilaterally Neck Neck: normal visual inspection Lymphatic: no lymphadenopathy noted Chest Chest: normal inspection of the chest Resp Effort & Inspection: normal respiratory effort and able to speak in complete sentences Auscultation: clear to auscultation bilaterally Cardio Rate: regular rate Rhythm: regular rhythm GI Inspection: normal to inspection Palpation: soft, not firm, no guarding, no hepatosplenomegaly, no masses and tender (diffuse, worse in epigastrum) Auscultation: normal bowel sounds Skin General skin exam: no rashes or lesions noted Neuro General: patient alert and patient awake Cognition: normal cognition Speech: speech normal Gait: normal gait Motor: muscle tone normal throughout Sensory Exam: no sensory deficits noted Extrem General: normal to inspection, full ROM and capillary refill normal Psych Appearance: grossly normal Mental Status: mental status grossly normal Speech and Movement: speech and movement normal Affect: normal affect Thought Process: normal Course Vital Signs Vital signs: Vital Signs Temperature 97.0 F L 01/13/22 15:25 Pulse 80 01/13/22 15:25 Respiratory Rate 18 01/13/22 15:25 Blood Pressure 120/64 01/13/22 15:25 Pulse Oximetry 98 01/13/22 15:25 Temperature 97.0 F L 01/13/22 15:25 Pulse 80 01/13/22 15:25 Respiratory Rate 18 01/13/22 15:25 Blood Pressure 120/64 01/13/22 15:25 Blood Pressure Position Supine 01/13/22 15:25 Pulse Oximetry 98 01/13/22 15:25 Oxygen Delivery Method Room Air 01/13/22 15:25 Oxygen Flow Rate 0 01/13/22 15:25 Pain Level 10 01/13/22 15:25
[2022-01-13] MEDS: ACETAMINOPHEN 1,000 MG/100 ML BTL 400 MG IVPB (15:43)
[2022-01-13 15:45] LABS: Abs Immature Grans 0.09 10^3/uL (0.0-0.06); Absolute Basophil Count 0.05 10^3/uL (0.0-0.2); Absolute Eosinophil Count 0.02 10^3/uL (0.0-0.7); Absolute Lymphocyte Count 2.06 10^3/uL (1.2-3.4); Absolute Monocyte Count 1.14 10^3/uL (0.1-0.8); Basophils % 0.3; Eosinophils % 0.1; HCT 42.4 % (40.0-50.0); HGB 15.3 g/dL (13.5-17.5); Immature Grans % 0.5; Lymphocytes % 11.8; MCH 33.6 pg (27.0-33.0); MCHC 36.1 % (32.0-36.0); MCV 93 fL (80-95); MPV 9.3 fL (8.0-11.0); Monocytes % 6.5; Neutrophils % 80.8; Platelet Count 238 10^3/uL (130-400); RBC 4.55 10^6/uL (4.36-5.78); RDW 11.9 % (11.8-14.1); RDW-SD 40.7 fL; WBC 17.47 10^3/uL (4.4-10.8)
[2022-01-13 15:47] LABS: Absolute Neutrophil Count 14.12 10^3/uL (1.2-6.7)
--- NOTE | 2022-01-13 15:55 | NUR.NOTE ---
pt unable to answer questions regaurding alcohol screening d/t intoxitation IAN RN
[2022-01-13 16:05] LABS: ALT 66 U/L (16-63); AST 73 U/L (15-37); Albumin 4.5 g/dL (3.4-5.0); Alkaline Phosphatase 107 U/L (46-116); BUN 12 mg/dL (7-18); Bilirubin, Total 0.7 mg/dL (0.2-1.0); CREATININE 0.8 mg/dL (0.70-1.30); Calcium 9.3 mg/dL (8.5-10.1); Chloride 96 mmol/L (98-107); ETHANOL BLOOD 57.1 mg/dL (<10); Glucose 64 mg/dL (74-106); Lipase 121 U/L (73-393); Magnesium 1.9 mg/dL (1.8-2.4); Potassium 3.6 mmol/L (3.5-5.1); Sodium 136 mmol/L (136-145); Total Protein 7.9 g/dL (6.4-8.2); Troponin I < 50 ng/L (<or=60)
--- NOTE | 2022-01-13 16:30 | RT.EKG_ITS ---
APPROVED REPORT Exam: Resting ECG Reason for Exam: upper abd pain Patient Location: E HR:71 bpm ECG Measurements Heart Rate 71 AXIS PA 156 P 40 QRSd 85 QRS 68 QT 409 T 60 QTc 446 Conclusion Sinus rhythm...normal P axis, V-rate 60- 99 ST elev, probable normal early repol pattern...ST elevation, age<55. Sinus. Normal axis. Benign early repolarization, seen in previous EKG. No STEMI. I have reviewed and interpreted ECG and agree with software generated interpretation.
[2022-01-13] MEDS: Normal Saline 1,000 ML 1000 ML IV (16:36)
[2022-01-13] MEDS: Famotidine 20 MG/2 ML VIAL IVP (16:50)
[2022-01-13] MEDS: LORazepam 20 MG/10 ML VIAL IVP (16:50)
--- NOTE | 2022-01-13 17:57 | DI.CT_ITS ---
Exam(s) CT ABDOMEN PELVIS W EXAM: CT ABDOMEN PELVIS W CLINICAL HISTORY: abd pain, vomiting. TECHNIQUE: Imaging Protocol: Axial computed tomography images with coronal and sagittal reformatted images were created and reviewed CONTRAST MATERIAL: Intravenous: Omnipaque 350 Contrast volume:100 ml Oral: / no COMPARISON: CT CT ABDOMEN PELVIS W from 07/12/2021 FINDINGS: ABDOMEN: Lung Bases: Normal where visualized. Liver: Moderate diffuse fatty infiltration.. No measurable mass. Gallbladder and biliary tract: No radiodense calculus or dilation. Pancreas: Evaluation mildly limited by motion. Pancreatic calcifications are again seen. There is s table ductal dilatation. There is a question of mild surrounding stranding in the fat which could in dicate an element of acute pancreatitis. No pseudocyst. No surrounding fluid. No visible mass. Spleen: Normal. Kidneys: Normal size, contour and axis. No radiodense stones or obstructive uropathy. No masses seen. Adrenal glands: No masses seen. Abdominal Aorta: Abdominal portion non-dilated. Stomach and small bowel: There is mild thickening of the wall of the descending duodenum adjacent to the pancreatic head which could represent secondary involvement by pancreatitis. PELVIS: Bladder: No gross wall thickening. No calculi.No focal mass. Bowel: Descending colon mostly decompressed. No definite wall thickening or inflammation. No obstru ction or bowel wall thickening. Appendix normal. Peritoneal cavity: No ascites, collection or mesenteric inflammatory response. Soft tissues: Small fa tty containing left inguinal hernia. Bones: Within normal limits for age. Reproductive organs: Within normal limits. Lymph nodes: Unremarkable. Impression: Evidence of chronic pancreatitis as seen previously. Superimposed mild acute pancreatitis. No surro unding fluid collection. Mild adjacent wall thickening of the duodenum. RADIATION DOSE DELIVERED: 566.11mGy.cm Total DLP DATA REPOSITORY: All CT scans at this facility are submitted to the National Radiology Data Registry (NRDR) Dose Index Registry (DIR) with the [employer] (ACR). RADIATION OPTIMIZATION: All CT scans at this facility use at least one of these dose optimization te chniques: automated exposure control; mA and/or kV adjustment per patient size (includes targeted exa ms where dose is matched to clinical indication); or iterative reconstruction.
[2022-01-13] MEDS: Omnipaque 350 MG/ML 100 ML BTL IJ (18:04)
[2022-01-13] MEDS: Normal Saline Flush 10 ML SYR IVP (18:05)
--- NOTE | 2022-01-13 18:21 | PDOC.ERCMPRO ---
- If Service Date Differs Date of service: 01/13/22 Time of Service: 18:21 Care Management Progress Note Pt declines full [employer] screen but states he is off drugs because I dont want to be a Junkie and his current coping mechanis is drinking. Pt reports he has cut down his alcohol use to 8 drinks per day. Pt was not interested in AA or treatment programs but was intrigued by the idea of [employer] online recovery resource which includes contingency management. He was provided the information and he agreed to a follow up call by [employer] staff two days from now.
--- NOTE | 2022-01-13 18:47 | DI.VRAD_ITS ---
PROCEDURE INFORMATION: Exam: CT Abdomen And Pelvis With Contrast Exam date and time: 01/13/2022 5:54 PM Age: 36 years old Clinical indication: Other: Abd pain, vomiting; Additional info: R/O appendicitis, colitis, sbo TECHNIQUE: Imaging protocol: Computed tomography of the abdomen and pelvis with contrast. Radiation optimization: All CT scans at this facility use at least one of these dose optimization techniques: automated exposure control; mA and/or kV adjustment per patient size (includes targeted exams where dose is matched to clinical indication); or iterative reconstruction. Contrast material: OMNIPAQUE 350; Contrast volume: 100 ml; Contrast route: INTRAVENOUS (IV); COMPARISON: CT ABDOMEN PELVIS W 07/12/2021 12:19 PM FINDINGS: Lungs: Minimal dependent atelectasis. Liver: Probable fatty infiltration of the liver, difficult to confidently diagnose by CT imaging after administration of intravenous contrast. Gallbladder and bile ducts: Normal appearing gallbladder. No calcified gallstones. No biliary dilatation. Pancreas: Mild-moderate pancreatic atrophy. Numerous coarse pancreatic calcifications suggesting chronic calcific pancreatitis. Mild irregular distention of the pancreatic duct through the body and much of the tail. Mild peripancreatic fat stranding suggesting superimposed acute pancreatitis. Spleen: Normal appearing spleen. Adrenal glands: Normal appearing adrenal glands. Kidneys and ureters: 1 mm nonobstructing left renal calculus. Otherwise normal-appearing kidneys. No hydronephrosis. No obstructing ureteral stones. Stomach and bowel: No oral contrast. Stomach partially decompressed. Mild hazy fat stranding adjacent to the proximal duodenum. No small bowel dilatation to suggest obstruction. Mild mural thickening suggested through the partially collapsed descending colon, sigmoid colon, and rectum. Artifact of incomplete distention? Acute segmental colitis/proctocolitis? Mild prominence of the perirectal veins suggesting probable hemorrhoids. Appendix: Normal appendix. Intraperitoneal space: No gross ascites or free air. Vasculature: Normal caliber abdominal aorta. Lymph nodes: No pathologically enlarged mesenteric, retroperitoneal, or pelvic sidewall lymph nodes. Urinary bladder: Normal appearing urinary bladder. Reproductive: Normal-appearing prostate gland and seminal vesicles. Bones/joints: No acute fracture seen among the bones of the abdomen or pelvis. Soft tissues: Small fat containing left inguinal region hernia. IMPRESSION: 1. Chronic calcific pancreatitis with mild-moderate atrophy of the pancreas and mild irregular distension of the pancreatic duct through the body and much of the tail. Peripancreatic fat stranding in keeping with superimposed acute pancreatitis. 2. Apparent mural thickening through the proximal duodenum with adjacent hazy fat stranding suggesting possible secondary acute duodenitis, uncertain finding. 3. Probable fatty infiltration of the liver, difficult to confidently diagnose by CT imaging after administration of intravenous contrast. 4. Possible mild mural thickening suggested through the partially collapsed descending colon, sigmoid colon, and rectum. Artifact of incomplete distention is suspected. Acute proctocolitis could probably mimic this appearance. Clinical correlation is recommended. Dictated and Authenticated by: Stas Frausto MD. Ordering:SCOTT Hayes MD
[2022-01-13 19:41] LABS: Anion Gap 11.7 mmol/L (3-11); BUN 12 mg/dL (7-18); CO2 23.3 mmol/L (21.0-32.0); CREATININE 0.8 mg/dL (0.70-1.30); Calcium 8.3 mg/dL (8.5-10.1); Chloride 100 mmol/L (98-107); Glucose 59 mg/dL (74-106); Potassium 4.4 mmol/L (3.5-5.1); Sodium 135 mmol/L (136-145)
[2022-01-13] MEDS: Sucralfate 1 GM TAB PO (20:01)
[2022-01-13 20:15] VITALS: BP 122/76; PULSE 70; RESP 18; TEMP 37; O2SAT 99
== END 2022-01-13 20:39 | disposition home or self-care (01) ==
PROVIDERS: Emergency Provider Physician Assistant; PCP Family Medicine
DX: R10.10 Upper abdominal pain, unspecified (principal); R11.10 Vomiting, unspecified; R19.7 Diarrhea, unspecified; R93.5 Abnormal findings on diagnostic imaging of other abdominal regions, including retroperitoneum; R55 Syncope and collapse; F10.10 Alcohol abuse, uncomplicated; F11.20 Opioid dependence, uncomplicated
CPT/HCPCS: 36415; 80048; 80053; 83690; 93005; 96361; 96374; 96375; 99285; 74177; 80320; 83735; 84484; 85025; 93010; 99284; J0131; J3490

== ENCOUNTER 2022-01-23 18:10 | Outpatient (REF) | payer MEDICAID, SELFPAY ==
[2022-01-25 14:15] LABS: COVID-19 RT-PCR UVMMC Result Negative (Negative)
== END 2022-01-23 18:11 | disposition home or self-care (01) ==
LOC: LBN 18:10
PROVIDERS: PCP Family Medicine; Visit Provider Physician Assistant Medical
DX: Z20.822 Contact with and (suspected) exposure to COVID-19 (principal); R11.2 Nausea with vomiting, unspecified
CPT/HCPCS: U0003

== ENCOUNTER 2022-01-24 13:43 | Emergency (ER) | payer MEDICAID, SELFPAY ==
[2022-01-24 13:59] VITALS: BP 134/86; PULSE 63; RESP 18; TEMP 36.9; O2SAT 98
--- NOTE | 2022-01-24 14:00 | DI.CT_ITS ---
Exam(s) CT ABDOMEN PELVIS WO EXAM: CT ABDOMEN PELVIS WO CLINICAL HISTORY: recurrent abdominal pain alcoholism TECHNIQUE: COMPARISON: CT CT ABDOMEN PELVIS W from 01/13/2022 FINDINGS: CT examination of the abdomen and pelvis was performed without contrast administration. Images obtained through the lung bases are unremarkable. The liver shows geographic steatosis with no evidence of a focal mass. Spleen is unremarkable in appearance.. Gallbladder and bile ducts are unremarkable. The pancreas shows evidence of chronic pancreatitis with multiple calcifications and mild ductal dila tation, there is also mild peripancreatic edema not present on prior CT of January 13 which may repres ent acute pancreatitis period. Adrenals appear normal bilaterally. Kidneys appear normal except for a small nonobstructing left renal calculus.. Unremarkable bladder. There is no evidence of abdominal or pelvic adenopathy. Abdominal aorta is of normal diameter and no abnormality is seen involving major visceral branches.. Appendix is nonvisualized but no evidence of appendicitis. No evidence diverticulitis or bowel obstr uction. No significant abdominal wall hernia seen. Impression: Findings are suggestive of acute on chronic pancreatitis. Some interval increase in peripancreatic e cyndi in comparison with prior CT of January 13.. RADIATION DOSE DELIVERED: 666.63mGy.cm Total DLP 666.63mGy.cm Total DLP !Error CTDIvol DATA REPOSITORY: All CT scans at this facility are submitted to the National Radiology Data Registry (NRDR) Dose Index Registry (DIR) with the [employer] (ACR). RADIATION OPTIMIZATION: All CT scans at this facility use at least one of these dose optimization te chniques: automated exposure control; mA and/or kV adjustment per patient size (includes targeted exa ms where dose is matched to clinical indication); or iterative reconstruction.
--- NOTE | 2022-01-24 14:14 | W.ED.GENAD ---
Discharge Plan Disposition Patient Disposition: HOME Condition: Stable Discharge Details Clinical Impression: Nausea, Gastritis, Chronic alcoholic pancreatitis Primary Care Provider: Joel Martinez ED Provider: Selvin Reis Home Meds and New Rx's Prescriptions: New pantoprazole 40 mg tablet,delayed release (DR/EC) 40 mg PO DAILY 20 Days Qty: 20 0RF ondansetron 4 mg tablet,disintegrating 4 mg PO Q8H PRN (Reason: nausea and vomiting) Qty: 10 0RF No Action buprenorphine-naloxone 8-2 mg film 1 film SL DAILY pregabalin 150 mg capsule 150 mg PO BID Qty: 60 3RF pantoprazole [Protonix] 40 mg tablet,delayed release (DR/EC) 40 mg PO DAILY Qty: 60 0RF sucralfate [Carafate] 1 gram tablet 1 gm PO QACHS Qty: 14 0RF ondansetron 4 mg tablet,disintegrating 4 mg PO TID PRN (Reason: nausea and vomiting) Qty: 6 0RF pantoprazole [Protonix] 40 mg tablet,delayed release (DR/EC) 40 mg PO DAILY Qty: 30 0RF sucralfate [Carafate] 1 gram tablet 1 gm PO QACHS Qty: 14 0RF famotidine [Pepcid] 20 mg tablet 20 mg PO DAILY Qty: 14 0RF promethazine 25 mg tablet 25 mg PO TID PRN (Reason: nausea and vomiting) Qty: 7 0RF Discharge Instructions Instructions: Gastritis (ED) Additional Instructions: Please follow-up with primary care physician care management team. Please return to the emergency department he needed any further assistance. Medical Decision Making 36-year-old male presents with epigastric abdominal discomfort over the past several days to weeks, decreased p.o. intake, in the setting of alcoholism, drinks multiple beers per day, has a history of chronic pancreatitis. Patient is nontoxic afebrile nontachycardic normotensive. Abdomen soft nontender nondistended subjective epigastric discomfort. Consider acute on chronic pancreatitis versus gastritis. Screening labs imaging fluids GI cocktail close reassessment likely discharge home with GI follow-up he was admission 18: 36 patient resting comfortably no acute distress. No vomiting in department was able to tolerate p.o. medications. Likely acute on chronic pancreatitis however lipase level is normal patient is nonperitoneal well-hydrated hemodynamically stable. Providing p.o. medications as an outpatient and outpatient follow-up. Patient upset that he is being discharged throwing stuff in the room, security called to bedside. HPI General Date/Time Provider Initiated Documentation: 01/24/22 14:05. HPI Narrative: 36-year-old male history of alcoholism presents with epigastric abdominal discomfort chronic however worsening over the past couple of days, decreased p.o. intake. Endorses drinking multiple beers per day. Has been told he is chronic pancreatitis Related Data Home Medications Medication Instructions Recorded Confirmed buprenorphine 8 mg-naloxone 2 mg 1 film sublingual DAILY 11/22/19 01/24/22 sublingual film pregabalin 150 mg capsule 150 mg PO BID #60 caps 07/03/21 01/24/22 pantoprazole 40 mg tablet,delayed 40 mg PO DAILY #60 tabs 07/08/21 01/24/22 release (Protonix) ondansetron 4 mg disintegrating 4 mg PO TID PRN nausea and 07/12/21 01/24/22 tablet vomiting #6 tabs pantoprazole 40 mg tablet,delayed 40 mg PO DAILY #30 tabs 07/12/21 01/24/22 release (Protonix) sucralfate 1 gram tablet (Carafate) 1 gm PO QACHS #14 tabs 07/12/21 01/24/22 famotidine 20 mg tablet (Pepcid) 20 mg PO DAILY #14 tabs 01/13/22 01/24/22 promethazine 25 mg tablet 25 mg PO TID PRN nausea and 01/13/22 01/24/22 vomiting #7 tabs sucralfate 1 gram tablet (Carafate) 1 gm PO QACHS #14 tabs 01/13/22 01/24/22 ondansetron 4 mg disintegrating 4 mg PO Q8H PRN nausea and 01/24/22 tablet vomiting #10 tabs pantoprazole 40 mg tablet,delayed 40 mg PO DAILY 20 days #20 tabs 01/24/22 release Previous Rx's Medication Instructions Recorded pregabalin 150 mg capsule 150 mg PO BID #60 caps 07/03/21 pantoprazole 40 mg tablet,delayed 40 mg PO DAILY #60 tabs 07/08/21 release (Protonix) ondansetron 4 mg disintegrating 4 mg PO TID PRN nausea and 07/12/21 tablet vomiting #6 tabs pantoprazole 40 mg tablet,delayed 40 mg PO DAILY #30 tabs 07/12/21 release (Protonix) sucralfate 1 gram tablet (Carafate) 1 gm PO QACHS #14 tabs 07/12/21 famotidine 20 mg tablet (Pepcid) 20 mg PO DAILY #14 tabs 01/13/22 promethazine 25 mg tablet 25 mg PO TID PRN nausea and 01/13/22 vomiting #7 tabs sucralfate 1 gram tablet (Carafate) 1 gm PO QACHS #14 tabs 01/13/22 ondansetron 4 mg disintegrating 4 mg PO Q8H PRN nausea and 01/24/22 tablet vomiting #10 tabs pantoprazole 40 mg tablet,delayed 40 mg PO DAILY 20 days #20 tabs 01/24/22 release Allergies Allergy/AdvReac Type Severity Reaction Status Date / Time No Known Allergies Allergy Verified 01/24/22 14:02 General Stated Complaint: Abd Prob KAVEH: 3 Review of Systems Narrative: Review of Systems Constitutional: negative Eyes: negative ENT: negative Cardiovascular: negative Respiratory: negative Gastrointestinal: Abdominal pain, nausea : negative Musculoskeletal: negative Skin: negative Neurologic: negative Psych: negative PFSH All Active Problems (Updated 01/24/22 @ 18:41 by Selvin Reis MD) Abdominal pain, vomiting, and diarrhea (Acute) Nausea (Acute) Gastritis (Acute) Chronic alcoholic pancreatitis (Acute) Contusion of right knee (Acute) Lyme disease (Acute) Abrasion (Acute) Trauma (Acute) Inflammatory arthritis (Acute) Alcoholic ketoacidosis (Acute) Vomiting (Acute) Abdominal pain (Acute) Alcoholic ketoacidosis (Acute) Abdominal pain with vomiting (Acute) Depression with anxiety (Acute) Family history of schizophrenia (Chronic) Father Migraine with aura (Acute) Homeless (Acute) Colitis (Acute) Alcoholic fatty liver (Acute) Nausea and vomiting (Acute) Hypoglycemia (Acute) Severe depression (Chronic) Delirium (Acute) Alcohol abuse (Chronic) Heroin abuse (Chronic) Elevated transaminase level (Acute) Chronic back pain (Chronic) Anxiety, generalized (Chronic) Medical History Depression History of alcohol abuse Opiate addiction Surgical History No significant past surgical history Family History Mother Heart disease Asthma Father No problems noted. Sister Asthma Sister No problems noted. Brother No problems noted. Grandfather Essential hypertension Heart disease Asthma Grandfather Essential hypertension Heart disease Grandmother No problems noted. Grandmother No problems noted. Son No problems noted. Daughter No problems noted. Daughter Asthma Social History Smoking/Tobacco Use Status: Current every day Tobacco Type: cigarettes Smoking risk assessment performed?: Yes Alcohol Intake: current Alcohol Intake frequency: 3 or more drinks per day Alcohol type: hard liquor Counseling provided: other Drug use: Occasionally Substance use type: former substance user and marijuana Details: middle of the night. Denies any Heroin use. Housing: apartment Number of Children: 3 What type of physical activity do you participate in: none Drive intox or ride w/intox feedmobile driver: No Working smoke detector in home: Yes Carbon monox detector in home: Yes Do you feel safe at home: Yes Do you feel safe in your relationship?: Yes Exam Narrative Exam Narrative: Physical Examination General: alert, awake, cooperative, resting comfortably, no acute distress HEENT: normocephalic, atraumatic; PERRL, EOM intact, conjunctiva normal; no nasal discharge; moist mucous membranes, oral and pharyngeal mucosa normal, tolerating secretions Neck: supple, trachea midline; full ROM Chest: normal to inspection Respiratory: normal respiratory effort, speaking in full sentences, clear to auscultation, no wheezing, rales or rhonchi Cardiac: regular rate, regular rhythm, S1S2 intact, no murmurs rubs or gallops GI: Subjective epigastric abdominal discomfort no guarding no rebound no distention Skin: no lesions, rashes or trauma appreciated Neuro: AAOx3, normal speech, moving all extremities Psych: Appropriate mood and affect Course Vital Signs Vital signs: Vital Signs Temperature 36.9 C 01/24/22 13:59 Pulse 63 01/24/22 13:59 Respiratory Rate 18 01/24/22 13:59 Blood Pressure 134/86 01/24/22 13:59 Pulse Oximetry 98 01/24/22 13:59 Temperature 36.9 C 01/24/22 13:59 Temperature Source Temporal Artery Scan 01/24/22 13:59 Pulse 63 01/24/22 13:59 Respiratory Rate 18 01/24/22 13:59 Blood Pressure 134/86 01/24/22 13:59 Blood Pressure Position Sitting 01/24/22 13:59 Pulse Oximetry 98 01/24/22 13:59 Oxygen Delivery Method Room Air 01/24/22 13:59 Oxygen Flow Rate 0 01/24/22 13:59
[2022-01-24] MEDS: Lidocaine 2% Viscous 15 ML CUP PO (16:00)
[2022-01-24] MEDS: Mylanta Suspension 30 ML CUP PO (16:01)
[2022-01-24 16:54] LABS: Abs Immature Grans 0.04 10^3/uL (0.0-0.06); Absolute Basophil Count 0.05 10^3/uL (0.0-0.2); Absolute Eosinophil Count 0.09 10^3/uL (0.0-0.7); Absolute Lymphocyte Count 2.63 10^3/uL (1.2-3.4); Absolute Monocyte Count 0.85 10^3/uL (0.1-0.8); Absolute Neutrophil Count 6.78 10^3/uL (1.2-6.7); Basophils % 0.5; Eosinophils % 0.9; HCT 41.9 % (40.0-50.0); HGB 14.8 g/dL (13.5-17.5); Immature Grans % 0.4; Lymphocytes % 25.2; MCH 32.9 pg (27.0-33.0); MCHC 35.3 % (32.0-36.0); MCV 93 fL (80-95); MPV 9.5 fL (8.0-11.0); Monocytes % 8.1; Neutrophils % 64.9; Platelet Count 251 10^3/uL (130-400); RDW 11.5 % (11.8-14.1); RDW-SD 39.1 fL; WBC 10.44 10^3/uL (4.4-10.8)
[2022-01-24 16:58] LABS: Bilirubin Negative (Negative); Blood Negative (Negative); Clarity Clear (Clear); Glucose Negative (Negative); Ketones Negative (Negative); Leukocyte Esterase Negative (Negative); Nitrite Negative (Negative); Urobilinogen 0.2 EU/dL (Up TO 0.2); pH 5.5 (5-8)
[2022-01-24 17:01] LABS: ALT 75 U/L (16-63); AST 81 U/L (15-37); Albumin 3.9 g/dL (3.4-5.0); Alkaline Phosphatase 123 U/L (46-116); Anion Gap 9.8 mmol/L (3-11); BUN 7 mg/dL (7-18); Bilirubin, Total 0.7 mg/dL (0.2-1.0); CO2 26.2 mmol/L (21.0-32.0); CREATININE 0.8 mg/dL (0.70-1.30); Calcium 8.9 mg/dL (8.5-10.1); Chloride 98 mmol/L (98-107); Glucose 103 mg/dL (74-106); Lipase 191 U/L (73-393); Potassium 3.5 mmol/L (3.5-5.1); Sodium 134 mmol/L (136-145); Total Protein 7.3 g/dL (6.4-8.2)
[2022-01-24 17:11] LABS: *AMPHETAMINES SCREEN URINE Negative (Negative); *BARBITURATES SCREEN URINE Negative (Negative); *BENZODIAZEPINES SCREEN URINE Negative (Negative); Cannabinoids THC Positive (Negative); Cocaine Screen,Urine Negative (Negative); METHADONE URINE SCREEN Negative (Negative); OPIATES URINE SCREEN Negative (Negative)
[2022-01-24 17:13] LABS: Tricyclic Antidepressants Negative (Negative)
[2022-01-24] MEDS: LORazepam 20 MG/10 ML VIAL IVP (17:14)
[2022-01-24] MEDS: Ondansetron 4 MG/2 ML VIAL IVP (17:16)
[2022-01-24] MEDS: Famotidine 20 MG/2 ML VIAL IVP (17:16)
[2022-01-24] MEDS: Normal Saline 1,000 ML 1000 ML IV (17:17)
--- NOTE | 2022-01-24 18:30 | DI.VRAD_ITS ---
PROCEDURE INFORMATION: Exam: CT Abdomen And Pelvis Without Contrast Exam date and time: 01/24/2022 17:47 Age: 36 years old Clinical indication: Other: Recurrent abdominal pain alcoholism TECHNIQUE: Imaging protocol: Computed tomography of the abdomen and pelvis without contrast. Radiation optimization: All CT scans at this facility use at least one of these dose optimization techniques: automated exposure control; mA and/or kV adjustment per patient size (includes targeted exams where dose is matched to clinical indication); or iterative reconstruction. COMPARISON: CT ABDOMEN PELVIS W 01/13/2022 17:54 FINDINGS: Liver: Heterogeneous fatty liver. No hepatic masses on noncontrast imaging. Gallbladder and bile ducts: No calcified stones. No ductal dilation. Pancreas: Chronic pathology in the pancreas including atrophy for age, ductal dilation and calcifications. All similar to prior. There is evidence of acute pancreatitis as well with mild edema involving the entirety of the parenchyma as well as the surrounding retroperitoneal fat. Spleen: No splenomegaly or focal lesions. Adrenal glands: No mass. Kidneys and ureters: Nonobstructive left nephrolithiasis. No right nephrolithiasis. No right hydronephrosis. Stomach and bowel: Submucosal fat deposition in the colon, likely habitus and or diet related. No colitis or diverticular disease. No gross pathology in the small bowel without IV contrast. Appendix: No evidence of appendicitis. Intraperitoneal space: No free air. No significant fluid collection. Vasculature: No abdominal aortic aneurysm. Lymph nodes: No significantly enlarged lymph nodes. Urinary bladder: Unremarkable as visualized. Reproductive: Unremarkable as visualized. Bones/joints: No acute fracture. Soft tissues: No suspicious lesions. IMPRESSION: 1. Acute on chronic pancreatitis. The acute component appears mild. Chronic component appears similar to prior. 2. Additional findings as described. Dictated and Authenticated by: Maritza Reyes MD. Ordering:MARIE Montalvo MD
--- NOTE | 2022-01-24 18:42 | NUR.NOTE ---
Nursing Note: Referral faxed to PCP needs multiple resoures within 1 week.
[2022-01-24 19:00] VITALS: PULSE 85; RESP 22; TEMP 36.6; O2SAT 98
== END 2022-01-24 19:00 | disposition home or self-care (01) ==
PROVIDERS: Emergency Provider Emergency Medicine; PCP Family Medicine
DX: K29.70 Gastritis, unspecified, without bleeding (principal); K86.0 Alcohol-induced chronic pancreatitis; F17.210 Nicotine dependence, cigarettes, uncomplicated
CPT/HCPCS: 36415; 80053; 80307; 83690; 96361; 96374; 96375; 99284; 74176; 81003; 85025; J2405; J3490

== ENCOUNTER 2022-02-20 17:07 | Inpatient (IN) | payer MEDICAID, SELFPAY ==
[2022-02-20] VITALS (10 sets, daily range): BP systolic 121; BP diastolic 60; PULSE 70–100; RESP 18; TEMP 37.7; O2SAT 94
[2022-02-20 17:51] LABS: Abs Immature Grans 0.04 10^3/uL (0.0-0.06); Absolute Basophil Count 0.02 10^3/uL (0.0-0.2); Absolute Lymphocyte Count 0.19 10^3/uL (1.2-3.4); Absolute Monocyte Count 0.05 10^3/uL (0.1-0.8); Absolute Neutrophil Count 10.28 10^3/uL (1.2-6.7); Basophils % 0.2; HGB 12.8 g/dL (13.5-17.5); Immature Grans % 0.4; Lymphocytes % 1.8; MCH 33.5 pg (27.0-33.0); MCHC 34.6 % (32.0-36.0); MCV 97 fL (80-95); MPV 9.7 fL (8.0-11.0); Monocytes % 0.5; Neutrophils % 97.1; Platelet Count 179 10^3/uL (130-400); RBC 3.82 10^6/uL (4.36-5.78); RDW 12.4 % (11.8-14.1); RDW-SD 43.8 fL; WBC 10.58 10^3/uL (4.4-10.8)
--- NOTE | 2022-02-20 17:58 | W.ED.GENAD ---
Discharge Plan Disposition Patient Disposition: [facility] INPATIENT Condition: Stable Discharge Details Clinical Impression: Abdominal pain, vomiting, and diarrhea, Pancolitis, Transaminitis, Hypokalemia Admit Date/Time: 02/20/22 22:43 Admit Provider: Giuseppe Vicente Attending Provider: Giuseppe Vicente Primary Care Provider: Joel Martinez ED Provider: Abigail Villafana Discharge Data Discharge Date/Time-TO BE ENTERED AT DEPARTURE: 02/21/22 00:02 Medical Decision Making 36-year-old male with a history of chronic alcohol abuse, recurrent pancreatitis, anxiety, depression, heroin use in remission presents for vomiting, diarrhea and abdominal pain since this morning. Last drink last night. Heart rate 100. Temperature 99.9. Patient appears uncomfortable and is moaning but is nontoxic-appearing. His abdomen is soft and diffusely mildly tender. Differential diagnosis includes acute pancreatitis, chronic pancreatitis, gastroenteritis, colitis, cholecystitis, appendicitis. Will obtain screening labs, CT abdomen pelvis and give Zofran, fluids and reassess. Labs and imaging reviewed. White blood cell count normal at 10. Potassium low at 2.9, will replete. Elevation of transaminases with AST of 780, ALT of 162 and alk phos of 272. T bili elevated at 1.3. Lipase within normal limits at 35. CT abdomen and pelvis notes pancolitis with no significant biliary dilatation or radiopaque stones in the biliary tree. Pancreatic calcifications most suggestive of chronic pancreatitis and no signs of appendicitis. Patient reassessed and he is still complaining of some nausea but pain somewhat improved. He is hemodynamically stable and currently demonstrates no signs of alcohol withdrawal. Will admit for persistent nausea in the setting of significant elevation of transaminitis. Acetaminophen level within normal limits. Acute hepatitis panel pending. Case discussed with Dr. Vicente who accepts patient for admission. Medical Records Medical records reviewed: Yes I reviewed the patient's medical records. Imaging Data Radiologic Study: Radiologist's impression: CT Abdomen And Pelvis With Contrast Exam date and time: 02/20/2022 18:46 Age: 36 years old Clinical indication: Other: Diffuse abd pain, h/o pancreatitis TECHNIQUE: Imaging protocol: Computed tomography of the abdomen and pelvis with contrast. Contrast material: 350; Contrast volume: 100 ml; Contrast route: INTRAVENOUS (IV);? COMPARISON: CT ABDOMEN PELVIS WO 01/24/2022 17:47 FINDINGS: Liver: No mass. Gallbladder and bile ducts: No significant biliary dilation or radiopaque stones in the biliary tree. Pancreas: Pancreatic calcifications most suggestive of chronic pancreatitis. Pancreatic ductal dilation for age. No acute appearing edema around the pancreas however. Findings all consistent with chronic pancreatitis. Spleen: No splenomegaly or focal lesions. Adrenal glands: No mass. Kidneys and ureters: Punctate left nephrolithiasis is similar. No renal masses or hydronephrosis bilaterally. Stomach and bowel: Wall thickening is centrally throughout the colon, generally moderate with mild disease in the sigmoid colon. No ischemia or obstruction. No focal pathology in the small bowel. Appendix: No evidence of appendicitis. Intraperitoneal space: No free air. No significant fluid collection. Vasculature: No abdominal aortic aneurysm. Lymph nodes: No significantly enlarged lymph nodes. Urinary bladder: Unremarkable as visualized. Reproductive: Unremarkable as visualized. Bones/joints: Minor wall thickening around the gallbladder, minor periportal edema in the liver suggests this is due to systemic illness or fractures other than cholecystitis. Could be worked up further with ultrasound if clinically indicated. Soft tissues: No suspicious lesions.? IMPRESSION: 1. Pancolitis, generally moderate in severity. 2. Additional findings as described. Lab Data Lab results reviewed: Yes I reviewed the patient's lab results. Labs: Laboratory Tests Range/Units 02/20/22 02/20/22 02/20/22 17:30 17:45 17:45 WBC (4.4-10.8) 10^3/uL 10.58 RBC (4.36-5.78) 10^6/uL 3.82 L Hgb (13.5-17.5) g/dL 12.8 L Hct (40.0-50.0) % 37.0 L MCV (80-95) fL 97 H MCH (27.0-33.0) pg 33.5 H MCHC (32.0-36.0) % 34.6 RDW (11.8-14.1) % 12.4 Plt Count (130-400) 10^3/uL 179 MPV (8.0-11.0) fL 9.7 Immature Gran % 0.4 Neutrophils % 97.1 Lymphocytes % 1.8 Monocytes % 0.5 Eosinophils % 0.0 Basophils % 0.2 Nucleated RBC % (0.0-0.3) % 0.0 Absolute Neutrophils (1.2-6.7) 10^3/uL 10.28 H Absolute Lymphocytes (1.2-3.4) 10^3/uL 0.19 L Absolute Monocytes (0.1-0.8) 10^3/uL 0.05 L Absolute Eosinophils (0.0-0.7) 10^3/uL 0.00 Absolute Basophils (0.0-0.2) 10^3/uL 0.02 Sodium (136-145) mmol/L 139 Potassium (3.5-5.1) mmol/L 2.9 L Chloride (98-107) mmol/L 103 Carbon Dioxide (21.0-32.0) mmol/L 27.3 Anion Gap (3-11) mmol/L 8.7 BUN (7-18) mg/dL 4 L Creatinine (0.70-1.30) mg/dL 0.8 Estimated GFR/1.73 m2 (mL/min/1.73m2) >= 60.00 Glucose (74-106) mg/dL 117 H Calcium (8.5-10.1) mg/dL 8.4 L Total Bilirubin (0.2-1.0) mg/dL 1.3 H AST (15-37) U/L 780 H ALT (16-63) U/L 162 H Alkaline Phosphatase (46-116) U/L 272 H Total Protein (6.4-8.2) g/dL 6.2 L Albumin (3.4-5.0) g/dL 3.0 L Lipase (73-393) U/L 35 Urine Color (Yellow) Yellow Urine Clarity (Clear) Clear Urine pH (5-8) 7.0 Ur Specific [facility] (1.005-1.025) 1.015 Urine Protein (Negative) mg/dL Negative Urine Ketones (Negative) mg/dL Trace H Urine Blood (Negative) Negative Urine Nitrite (Negative) Negative Urine Bilirubin (Negative) Negative Urine Urobilinogen (Up TO 0.2) EU/dL 1.0 H Ur Leukocyte Esterase (Negative) Negative Urine Glucose (Negative) mg/dL Negative Acetaminophen (10-30) ug/mL COVID-19 Source Range/Units 02/20/22 02/20/22 17:45 22:50 WBC (4.4-10.8) 10^3/uL RBC (4.36-5.78) 10^6/uL Hgb (13.5-17.5) g/dL Hct (40.0-50.0) % MCV (80-95) fL MCH (27.0-33.0) pg MCHC (32.0-36.0) % RDW (11.8-14.1) % Plt Count (130-400) 10^3/uL MPV (8.0-11.0) fL Immature Gran % Neutrophils % Lymphocytes % Monocytes % Eosinophils % Basophils % Nucleated RBC % (0.0-0.3) % Absolute Neutrophils (1.2-6.7) 10^3/uL Absolute Lymphocytes (1.2-3.4) 10^3/uL Absolute Monocytes (0.1-0.8) 10^3/uL Absolute Eosinophils (0.0-0.7) 10^3/uL Absolute Basophils (0.0-0.2) 10^3/uL Sodium (136-145) mmol/L Potassium (3.5-5.1) mmol/L Chloride (98-107) mmol/L Carbon Dioxide (21.0-32.0) mmol/L Anion Gap (3-11) mmol/L BUN (7-18) mg/dL Creatinine (0.70-1.30) mg/dL Estimated GFR/1.73 m2 (mL/min/1.73m2) Glucose (74-106) mg/dL Calcium (8.5-10.1) mg/dL Total Bilirubin (0.2-1.0) mg/dL AST (15-37) U/L ALT (16-63) U/L Alkaline Phosphatase (46-116) U/L Total Protein (6.4-8.2) g/dL Albumin (3.4-5.0) g/dL Lipase (73-393) U/L Urine Color (Yellow) Urine Clarity (Clear) Urine pH (5-8) Ur Specific [facility] (1.005-1.025) Urine Protein (Negative) mg/dL Urine Ketones (Negative) mg/dL Urine Blood (Negative) Urine Nitrite (Negative) Urine Bilirubin (Negative) Urine Urobilinogen (Up TO 0.2) EU/dL Ur Leukocyte Esterase (Negative) Urine Glucose (Negative) mg/dL Acetaminophen (10-30) ug/mL < 2 COVID-19 Source Nasal/Nares HPI General Mode of arrival: ambulatory. Date/Time Provider Initiated Documentation: 02/20/22 17:29. Limitations to Documentation: no limitations. Information obtained by: patient. HPI Narrative: Patient is a 36-year-old male with a history of chronic alcohol abuse, recurrent pancreatitis, anxiety, depression, history of heroin use now in remission presents for vomiting, diarrhea and abdominal pain since this morning. Patient admits to drinking 2 16 ounce beers last night. He states he has had multiple episodes of bilious vomiting. He also admits to watery brown diarrhea. He states his abdominal pain has been constant and crampy. Related Data Home Medications Medication Instructions Recorded Confirmed buprenorphine 8 mg-naloxone 2 mg 1 film sublingual DAILY 11/22/19 02/20/22 sublingual film pantoprazole 40 mg tablet,delayed 40 mg PO DAILY #60 tabs 07/08/21 02/20/22 release (Protonix) ondansetron 4 mg disintegrating 4 mg PO TID PRN nausea and 07/12/21 02/20/22 tablet vomiting #6 tabs pantoprazole 40 mg tablet,delayed 40 mg PO DAILY #30 tabs 07/12/21 02/20/22 release (Protonix) famotidine 20 mg tablet (Pepcid) 20 mg PO DAILY #14 tabs 01/13/22 02/20/22 sucralfate 1 gram tablet (Carafate) 1 gm PO QACHS #14 tabs 01/13/22 02/20/22 Previous Rx's Medication Instructions Recorded pantoprazole 40 mg tablet,delayed 40 mg PO DAILY #60 tabs 07/08/21 release (Protonix) ondansetron 4 mg disintegrating 4 mg PO TID PRN nausea and 07/12/21 tablet vomiting #6 tabs pantoprazole 40 mg tablet,delayed 40 mg PO DAILY #30 tabs 07/12/21 release (Protonix) famotidine 20 mg tablet (Pepcid) 20 mg PO DAILY #14 tabs 01/13/22 sucralfate 1 gram tablet (Carafate) 1 gm PO QACHS #14 tabs 01/13/22 Allergies Allergy/AdvReac Type Severity Reaction Status Date / Time No Known Allergies Allergy Verified 01/27/22 14:31 General Stated Complaint: Abd Prob KAVEH: 3 Review of Systems All systems reviewed & are unremarkable except as noted in HPI and below Constitutional Constitutional: Denies chills, Denies excessive sweating, Denies fatigue, Denies fever(s), Denies weakness and Denies weight loss Eyes Eyes: Reports system reviewed and no additional complaints, except as documented and Denies blurry vision ENT Ears, Nose, Mouth, and Throat: Denies vertigo, Denies dizziness, Denies otalgia, Denies nasal congestion, Denies sore throat and Denies throat swelling Cardiovascular Cardiovascular: Denies chest pain, Denies syncope, Denies rapid heart rate and Denies dyspnea Respiratory Respiratory: Denies chest congestion, Denies cough, Denies pain on inspiration and Denies dyspnea Gastrointestinal Gastrointestinal: Reports abdominal pain, Reports diarrhea and Reports vomiting Genitourinary Genitourinary: Denies hematuria, Denies dysuria and Denies flank pain Musculoskeletal Musculoskeletal: Denies back pain and Denies joint swelling Integumentary/Breasts Skin/Breast: Denies lesions and Denies rash Neurologic Neurologic: Denies behavioral changes, Denies confusion, Denies vertigo, Denies dizziness, Denies syncope, Denies localized weakness and Denies weakness Psychiatric Psychiatric: Denies behavioral changes, Denies confusion and Denies depression Endocrine Endocrine: Denies excessive sweating and Denies fatigue Hematologic/Lymphatic Hematologic/Lymphatic: Denies easy bruising and Denies lymphadenopathy Allergic/Immunologic Allergic/Immunologic: Denies throat swelling PFSH All Active Problems Abdominal pain, vomiting, and diarrhea (Acute) Pancolitis (Acute) Transaminitis (Acute) Hypokalemia (Acute) Nausea (Acute) Gastritis (Acute) Chronic alcoholic pancreatitis (Acute) Contusion of right knee (Acute) Lyme disease (Acute) Abrasion (Acute) Trauma (Acute) Inflammatory arthritis (Acute) Alcoholic ketoacidosis (Acute) Vomiting (Acute) Abdominal pain (Acute) Alcoholic ketoacidosis (Acute) Abdominal pain with vomiting (Acute) Depression with anxiety (Acute) Family history of schizophrenia (Chronic) Father Migraine with aura (Acute) Homeless (Acute) Colitis (Acute) Alcoholic fatty liver (Acute) Nausea and vomiting (Acute) Hypoglycemia (Acute) Severe depression (Chronic) Delirium (Acute) Alcohol abuse (Chronic) Heroin abuse (Chronic) Elevated transaminase level (Acute) Chronic back pain (Chronic) Anxiety, generalized (Chronic) Medical History Depression History of alcohol abuse Opiate addiction Surgical History No significant past surgical history Family History Mother Heart disease Asthma Father No problems noted. Sister Asthma Sister No problems noted. Brother No problems noted. Grandfather Essential hypertension Heart disease Asthma Grandfather Essential hypertension Heart disease Grandmother No problems noted. Grandmother No problems noted. Son No problems noted. Daughter No problems noted. 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: No Working smoke detector in home: Yes Carbon monox detector in home: Yes Do you feel safe at home: Yes Do you feel safe in your relationship?: Yes Exam Const General: cooperative Orientation: alert, awake and oriented x3 HENMT Head: normal to inspection Ears: hearing grossly normal bilaterally and external ears normal General nose exam: external nose normal Face and sinus: normal facial exam Mouth: oral mucosae normal Teeth and gingiva: poor dentition Eyes General: appearance normal, both eyes and all related structures Eyelids: eyelids normal EOM: EOM intact bilaterally Neck Neck: normal visual inspection Lymphatic: no lymphadenopathy noted Chest Chest: normal inspection of the chest Resp Effort & Inspection: normal respiratory effort and able to speak in complete sentences Auscultation: clear to auscultation bilaterally Cardio Rate: regular rate Rhythm: regular rhythm GI Inspection: normal to inspection Palpation: soft, not firm, no guarding, no hepatosplenomegaly, no masses and tender (diffuse, mild) Auscultation: hypoactive bowel sounds Skin General skin exam: no rashes or lesions noted Neuro General: patient alert, patient awake and moves all extremities Cognition: normal cognition Speech: speech normal Motor: muscle tone normal throughout Sensory Exam: no sensory deficits noted Extrem General: normal to inspection, full ROM and capillary refill normal Psych Appearance: grossly normal Mental Status: mental status grossly normal Speech and Movement: speech and movement normal Affect: normal affect Thought Process: normal Course Vital Signs Vital signs: Vital Signs Temperature 99.9 F H 02/20/22 17:12 Pulse 100 H 02/20/22 17:12 Respiratory Rate 18 02/20/22 17:12 Blood Pressure 121/60 02/20/22 17:12 Pulse Oximetry 94 02/20/22 17:12 Temperature 99.9 F H 02/20/22 17:12 Temperature Source Oral 02/20/22 17:12 Pulse 100 H 02/20/22 17:12 Respiratory Rate 18 02/20/22 17:12 Respiratory Effort Non-Labored 02/20/22 17:30 Blood Pressure 121/60 02/20/22 17:12 Blood Pressure Position Left Lateral 02/20/22 17:12 Pulse Oximetry 94 02/20/22 17:12 Oxygen Delivery Method Room Air 02/20/22 17:12 Oxygen Flow Rate 0 02/20/22 17:12 Pain Level 7 02/20/22 17:30 PAWSS Have you Been Recently Intoxicated or Drunk Within the Last 30 days?: No Have you Ever Experienced Previous Episodes of Alcohol Withdrawal?: Yes Have you ever Experienced Withdrawal Seizures?: Yes Have you ever Experienced Delirium Tremens(DT)s?: Yes Have you ever undergone Alcohol Rehabilitation Treatment (i.e, inpt ot outpatient treatment programs)?: Yes Have you ever Experienced Blackouts?: Yes Have you ever Combined Alcohol with other Downers within the last 90 days?: Yes Have you ever Combined Alcohol with any other Substance of Abuse during the last 90 days?: Yes Positive Blood Alcohol level on Presentation? [PCS.BAL]: Unable to Obtain Evidence of Increased Autonomic Activity (i.e. HR>120, tremor, sweating, agitation, nausea)?: No Result: 7
[2022-02-20 18:19] LABS: ALT 162 U/L (16-63); AST 780 U/L (15-37); Alkaline Phosphatase 272 U/L (46-116); Anion Gap 8.7 mmol/L (3-11); BUN 4 mg/dL (7-18); Bilirubin, Total 1.3 mg/dL (0.2-1.0); CO2 27.3 mmol/L (21.0-32.0); CREATININE 0.8 mg/dL (0.70-1.30); Calcium 8.4 mg/dL (8.5-10.1); Chloride 103 mmol/L (98-107); Glucose 117 mg/dL (74-106); Lipase 35 U/L (73-393); Sodium 139 mmol/L (136-145); Total Protein 6.2 g/dL (6.4-8.2)
[2022-02-20 18:26] LABS: Potassium 2.9 mmol/L (3.5-5.1)
--- NOTE | 2022-02-20 18:30 | DI.CT_ITS ---
Exam(s) CT ABDOMEN PELVIS W EXAM: CT ABDOMEN PELVIS W CLINICAL HISTORY: diffuse abd pain, h/o pancreatitis. TECHNIQUE: Imaging Protocol: Axial computed tomography images with coronal and sagittal reformatted images were created and reviewed CONTRAST MATERIAL: Intravenous: Omnipaque 100cc Oral: None COMPARISON: CT CT ABDOMEN PELVIS WO from 01/24/2022 FINDINGS: VISUALIZED LUNG BASES: No nodules nor pleural effusions evident. ABDOMEN: There is no ascites. LIVER: There are no focal hepatic lesions evident. However, there is some periportal edema evident o n this contrast infused study. GALLBLADDER/BILIARY: No obvious gallstones but gallbladder does appears slightly edematous. CBD is n ot dilated. CBD is not dilated. PANCREAS: Previously described abundant calcifications in the pancreas are again noted, again noted b e most prominent and confluent in the pancreatic head and uncinate process and there is moderate dila tation of the entire pancreatic duct with maximum duct diameter of 6 millimeters. No obvious acute p ancreatitis at this time. No peripancreatic fluid. Slightly enlarged portal caval lymph nodes. There is a suggestion of a possible mass on the medial wall of the duodenum around the just below the insertional site of the CBD into the medial wall the duodenum (series 4/image 31). SPLEEN: Spleen is not enlarged. No obvious intrasplenic lesions. Splenic and portal veins are paten t. ADRENALS: There are no significant adrenal masses. KIDNEYS:No cysts evident. No solid renal masses. Tiny punctate 1 millimeter nonobstructive calculus noted in the lower pole the left kidney. No calculi in the ureters nor within the urinary bladder. Urinary bladder wall is uniformly slightly thickened. No calculi in the bladder. No obvious bladder masses.. ABDOMINAL AORTA: Abdominal aorta is not enlarged. LYMPH NODES:Slightly prominent portacaval lymph node measuring 2 x 1.2 cm. ABDOMINAL WALL: No evidence of significant anterior abdominal wall nor inguinal hernia. GI: There is a Maria colitis pattern involving the entire colon from cecum to the rectosigmoid. The ap pendix appears unremarkable. No evidence of bowel obstruction. No significant colonic diverticular disease. PELVIS: GI: No evidence of appendicitis.No evidence of sigmoid diverticulitis. LYMPH NODES: There is no intrapelvic nor inguinal adenopathy. REPRODUCTIVE: Prostate size normal. Seminal vesicles unremarkable. URINARY BLADDER: Uniform wall mild wall thickening. OSSEOUS: No significant osseous lesions. Sacroiliac joints unremarkable. IMPRESSION: 1. The main acute appearing finding is a diffuse colitis pattern with circumferential edema like thic kening of the entire colon. No colonic distention. No appendicitis. No diverticulitis. No free fl uid. No small bowel obstruction. 2. Numerous prominent parenchymal calcifications throughout the but again noted be most prominent con fluent in the pancreatic head and uncinate process, this resulting in dilatation of the pancreatic du ct to a diameter of 6 millimeters. The CBD is not dilated. However, there is a subtle suggestion of a possible mass on the medial wall of the duodenum adjacent to the insertional aspect of the CBD at this level. Recommend endoscopy with direct visualization. 3. No radiopaque gallstones but the gallbladder wall does appears slightly edematous towards the fund us. Recommend follow-up ultrasound. 4. Other findings as above. RADIATION DOSE DELIVERED: 598.37mGy.cm Total DLP DATA REPOSITORY: All CT scans at this facility are submitted to the National Radiology Data Registry (NRDR) Dose Index Registry (DIR) with the [employer] (A[employer]). RADIATION OPTIMIZATION: All CT scans at this facility use at least one of these dose optimization te chniques: automated exposure control; mA and/or kV adjustment per patient size (includes targeted exa ms where dose is matched to clinical indication); or iterative reconstruction.
[2022-02-20] MEDS: Omnipaque 350 MG/ML 100 ML BTL IJ (18:52)
--- NOTE | 2022-02-20 19:03 | DI.VRAD_ITS ---
PROCEDURE INFORMATION: Exam: CT Abdomen And Pelvis With Contrast Exam date and time: 02/20/2022 18:46 Age: 36 years old Clinical indication: Other: Diffuse abd pain, h/o pancreatitis TECHNIQUE: Imaging protocol: Computed tomography of the abdomen and pelvis with contrast. Contrast material: 350; Contrast volume: 100 ml; Contrast route: INTRAVENOUS (IV); COMPARISON: CT ABDOMEN PELVIS WO 01/24/2022 17:47 FINDINGS: Liver: No mass. Gallbladder and bile ducts: No significant biliary dilation or radiopaque stones in the biliary tree. Pancreas: Pancreatic calcifications most suggestive of chronic pancreatitis. Pancreatic ductal dilation for age. No acute appearing edema around the pancreas however. Findings all consistent with chronic pancreatitis. Spleen: No splenomegaly or focal lesions. Adrenal glands: No mass. Kidneys and ureters: Punctate left nephrolithiasis is similar. No renal masses or hydronephrosis bilaterally. Stomach and bowel: Wall thickening is centrally throughout the colon, generally moderate with mild disease in the sigmoid colon. No ischemia or obstruction. No focal pathology in the small bowel. Appendix: No evidence of appendicitis. Intraperitoneal space: No free air. No significant fluid collection. Vasculature: No abdominal aortic aneurysm. Lymph nodes: No significantly enlarged lymph nodes. Urinary bladder: Unremarkable as visualized. Reproductive: Unremarkable as visualized. Bones/joints: Minor wall thickening around the gallbladder, minor periportal edema in the liver suggests this is due to systemic illness or fractures other than cholecystitis. Could be worked up further with ultrasound if clinically indicated. Soft tissues: No suspicious lesions. IMPRESSION: 1. Pancolitis, generally moderate in severity. 2. Additional findings as described. Dictated and Authenticated by: Maritza Reyes MD. Ordering:SCOTT Hayes MD
[2022-02-20] MEDS: POTASSIUM CHLORIDE 20 MEQ/100 ML BAG 50 MEQ IVPB (21:00)
[2022-02-20] MEDS: Potassium Chloride 20 MEQ TABCR 40 MEQ PO (21:00)
[2022-02-20] MEDS: Ketorolac 30 MG/ML VIAL IVP (21:00)
[2022-02-20] MEDS: Normal Saline 1,000 ML 1000 ML IV (21:00)
[2022-02-20] MEDS: Ondansetron 4 MG/2 ML VIAL IVP (21:00)
[2022-02-20 21:28] LABS: Bilirubin Negative (Negative); Blood Negative (Negative); Clarity Clear (Clear); Glucose Negative (Negative); Ketones Trace mg/dL (Negative); Leukocyte Esterase Negative (Negative); Nitrite Negative (Negative); Specific Gravity 1.015 (1.005-1.025)
[2022-02-20] MEDS: Prochlorperazine 10 MG/2 ML VIAL IVP (22:22)
[2022-02-20 22:53] LABS: Source Nasal/Nares
[2022-02-20 23:07] LABS: Acetaminophen < 2 ug/mL (10-30)
[2022-02-20 23:29] LABS: COVID-19 PCR Negative (Negative)
[2022-02-21] VITALS (45 sets, daily range): BP systolic 110–139; BP diastolic 67–96; PULSE 43–97; RESP 2–31; TEMP 36.4–37.6; O2SAT 95–99
[2022-02-21] MEDS: Ondansetron 4 MG/2 ML VIAL 8 MG IVP ×2 (06:13→23:16)
[2022-02-21] MEDS: Ketorolac 30 MG/ML VIAL IVP ×2 (07:31→19:30)
[2022-02-21] MEDS: Normal Saline Flush 10 ML SYR IVP ×7 (07:32→23:02)
[2022-02-21] MEDS: Multivitamin TAB 1 TAB PO (07:41)
[2022-02-21] MEDS: Thiamine 100 MG TAB PO (07:41)
[2022-02-21] MEDS: Folic Acid 1 MG TAB PO (07:41)
[2022-02-21] MEDS: LORazepam 1 MG TAB PO/SL ×2 (07:41→15:31)
[2022-02-21] MEDS: Prochlorperazine 10 MG/2 ML VIAL IVP (08:19)
--- NOTE | 2022-02-21 10:00 | HPE_ITS ---
Date of service: 02/21/22 Time of Service: 10:00 Assessment and Plan Assessment and plan (1) Abdominal pain, vomiting, and diarrhea: Status: Acute Assessment and plan: I think this with acute alcohol withdrawal. I do not think symptoms of delirium tremens. We will continue to treat him with the CIWA protocol. We will follow-up another white blood cell count over the next 24 hours. If that increases, then we can investigate the colitis a little further. At this time, however, I do not think he has infectious colitis. (2) Transaminitis: Status: Acute Assessment and plan: Awaiting hepatitis test I will repeat comprehensive metabolic panel today History of Present Illness History of Present Illness Chief Complaint: abdominal pain Narrative: -year-old male who comes to the hospital with abdominal pain, and associated nausea and vomiting. He says it has been increasing over the past several days after he stopped drinking alcohol because he was unable to afford it. He developed nausea, vomiting, and some mild diarrhea. In the emergency department, he was found to have an elevated AST. CAT scan was performed that demonstrated some evidence of colitis. White blood cell count was within normal limits. Review of Systems Constitutional Constitutional: Reports body ache(s), Reports chills, Reports difficulty sleeping, Reports excessive sweating, Reports poor appetite and Reports weakness Eyes Eyes: Reports blurry vision and Reports change in vision ENT Ears, Nose, Mouth, and Throat: Reports hoarseness Cardiovascular Cardiovascular: Denies chest pain, Reports diaphoresis and Denies dyspnea Respiratory Respiratory: Denies chest congestion, Reports cough and Denies dyspnea Gastrointestinal Gastrointestinal: Reports abdominal pain, Reports change in bowel habits, Reports change in stool character, Reports heartburn, Reports loose stools, Reports nausea and Reports vomiting Musculoskeletal Musculoskeletal: Reports back pain, Reports myalgias and Reports muscle cramps Neurologic Neurologic: Reports confusion, Reports tremor(s) and Reports weakness Psychiatric Psychiatric: Reports anxiety, Reports confusion, Reports irritability and Reports mood swings Endocrine Endocrine: Reports excessive sweating Hematologic/Lymphatic Hematologic/Lymphatic: Denies easy bleeding and Denies easy bruising PFSH All Active Problems Abdominal pain, vomiting, and diarrhea (Acute) Pancolitis (Acute) Transaminitis (Acute) Hypokalemia (Acute) Nausea (Acute) Gastritis (Acute) Chronic alcoholic pancreatitis (Acute) Contusion of right knee (Acute) Lyme disease (Acute) Abrasion (Acute) Trauma (Acute) Inflammatory arthritis (Acute) Alcoholic ketoacidosis (Acute) Vomiting (Acute) Abdominal pain (Acute) Alcoholic ketoacidosis (Acute) Abdominal pain with vomiting (Acute) Depression with anxiety (Acute) Family history of schizophrenia (Chronic) Father Migraine with aura (Acute) Homeless (Acute) Colitis (Acute) Alcoholic fatty liver (Acute) Nausea and vomiting (Acute) Hypoglycemia (Acute) Severe depression (Chronic) Delirium (Acute) Alcohol abuse (Chronic) Heroin abuse (Chronic) Elevated transaminase level (Acute) Chronic back pain (Chronic) Anxiety, generalized (Chronic) Medical History Depression History of alcohol abuse Opiate addiction Surgical History No significant past surgical history Family History Mother Heart disease Asthma Father No problems noted. Sister Asthma Sister No problems noted. Brother No problems noted. Grandfather Essential hypertension Heart disease Asthma Grandfather Essential hypertension Heart disease Grandmother No problems noted. Grandmother No problems noted. Son No problems noted. Daughter No problems noted. Daughter Asthma Social History Smoking/Tobacco Use Status: Current every day Tobacco Type: cigarettes Smoking risk assessment performed?: Yes Alcohol Intake: current Alcohol Intake frequency: 0-2 drinks per day Alcohol type: beer and hard liquor Counseling provided: other Drug use: Daily Substance use type: marijuana, opiates and IV drugs Details: States has used some oxycotin from his doctor, denies heroin use Housing: apartment Number of Children: 3 What type of physical activity do you participate in: none Drive intox or ride w/intox rickshaw driver: No Working smoke detector in home: Yes Carbon monox detector in home: Yes Do you feel safe at home: Yes Do you feel safe in your relationship?: Yes Meds Allergies and Home Medications Allergies Allergy/AdvReac Type Severity Reaction Status Date / Time No Known Allergies Allergy Verified 01/27/22 14:31 Home Medications Medication Instructions Recorded Confirmed Type buprenorphine 8 mg-naloxone 2 mg 1 film sublingual DAILY 11/22/19 02/20/22 History sublingual film pantoprazole 40 mg tablet,delayed 40 mg PO DAILY #60 tabs 07/08/21 02/20/22 Rx release (Protonix) ondansetron 4 mg disintegrating 4 mg PO TID PRN nausea and 07/12/21 02/20/22 Rx tablet vomiting #6 tabs pantoprazole 40 mg tablet,delayed 40 mg PO DAILY #30 tabs 07/12/21 02/20/22 Rx release (Protonix) famotidine 20 mg tablet (Pepcid) 20 mg PO DAILY #14 tabs 01/13/22 02/20/22 Rx sucralfate 1 gram tablet (Carafate) 1 gm PO QACHS #14 tabs 01/13/22 02/20/22 Rx Exam Const General: cooperative, anxious and lethargic Nutritional Appearance: malnourished Orientation: awake, oriented to person and oriented to place Eyes General: appearance normal, both eyes and all related structures Conjunctivae: conjunctivae normal Sclera: sclerae normal Neck Neck: full ROM and supple Resp Effort & Inspection: normal respiratory effort, no audible wheezes and no use of accessory muscles Auscultation: clear to auscultation bilaterally Cardio Jugular venous pressure: no JVD Rate: regular rate GI Inspection: non-distended Palpation: soft, no guarding, no hernias and tender Auscultation: normal bowel sounds Skin General skin exam: normal turgor Other: diaphoretic Neuro General: no focal motor deficits Cognition: normal cognition Extrem Right lower extremity: no edema Left lower extremity: no edema Psych Appearance: disheveled Speech and Movement: slowed movement Affect: sad Attitude: cooperative and avoids eye contact Thought Content: normal Insight: fair Judgment: fair Results Labs Result diagrams: 02/20/22 17:45 02/20/22 17:45 Labs: Laboratory Results - last 24 hr 02/20/22 02/20/22 02/20/22 17:30 17:45 17:45 WBC 10.58 RBC 3.82 L Hgb 12.8 L Hct 37.0 L MCV 97 H MCH 33.5 H MCHC 34.6 RDW 12.4 Plt Count 179 MPV 9.7 Immature Gran % 0.4 Neutrophils % 97.1 Lymphocytes % 1.8 Monocytes % 0.5 Eosinophils % 0.0 Basophils % 0.2 Nucleated RBC % 0.0 Absolute Neutrophils 10.28 H Absolute Lymphocytes 0.19 L Absolute Monocytes 0.05 L Absolute Eosinophils 0.00 Absolute Basophils 0.02 Sodium 139 Potassium 2.9 L Chloride 103 Carbon Dioxide 27.3 Anion Gap 8.7 BUN 4 L Creatinine 0.8 Estimated GFR/1.73 m2 >= 60.00 Glucose 117 H Calcium 8.4 L Total Bilirubin 1.3 H AST 780 H ALT 162 H Alkaline Phosphatase 272 H Total Protein 6.2 L Albumin 3.0 L Lipase 35 Urine Color Yellow Urine Clarity Clear Urine pH 7.0 Ur Specific [place] 1.015 Urine Protein Negative Urine Ketones Trace H Urine Blood Negative Urine Nitrite Negative Urine Bilirubin Negative Urine Urobilinogen 1.0 H Ur Leukocyte Esterase Negative Urine Glucose Negative Acetaminophen COVID-19 Source SARS-CoV-2 (PCR) 02/20/22 02/20/22 17:45 22:50 WBC RBC Hgb Hct MCV MCH MCHC RDW Plt Count MPV Immature Gran % Neutrophils % Lymphocytes % Monocytes % Eosinophils % Basophils % Nucleated RBC % Absolute Neutrophils Absolute Lymphocytes Absolute Monocytes Absolute Eosinophils Absolute Basophils Sodium Potassium Chloride Carbon Dioxide Anion Gap BUN Creatinine Estimated GFR/1.73 m2 Glucose Calcium Total Bilirubin AST ALT Alkaline Phosphatase Total Protein Albumin Lipase Urine Color Urine Clarity Urine pH Ur Specific [place] Urine Protein Urine Ketones Urine Blood Urine Nitrite Urine Bilirubin Urine Urobilinogen Ur Leukocyte Esterase Urine Glucose Acetaminophen < 2 COVID-19 Source Nasal/Nares SARS-CoV-2 (PCR) Negative Last Vital Signs Temp 98.6 F 02/21/22 07:15 Pulse 52 L 02/21/22 07:15 Resp 18 02/21/22 07:15 BP 138/77 02/21/22 07:15 Pulse Ox 98 02/21/22 07:15 PAWSS Have you Been Recently Intoxicated or Drunk Within the Last 30 days?: Yes Have you Ever Experienced Previous Episodes of Alcohol Withdrawal?: Yes Have you ever Experienced Withdrawal Seizures?: Yes Have you ever Experienced Delirium Tremens(DT)s?: Yes Have you ever undergone Alcohol Rehabilitation Treatment (i.e, inpt ot outpatient treatment programs)?: Yes Have you ever Experienced Blackouts?: Yes Have you ever Combined Alcohol with other Downers within the last 90 days?: Yes Have you ever Combined Alcohol with any other Substance of Abuse during the last 90 days?: Yes Positive Blood Alcohol level on Presentation? [PCS.BAL]: Unable to Obtain Evidence of Increased Autonomic Activity (i.e. HR>120, tremor, sweating, agitation, nausea)?: Yes Result: 9
--- NOTE | 2022-02-21 10:06 | INITIAL_ITS ---
- If Service Date Differs Date of service: 02/21/22 Time of Service: 10:06 Care Management Initial Assess REASON FOR HOSPITALIZATION:: vomiting and diarrhea, pancolitis, transaminitis PAST MEDICAL HISTORY/PAST SURGICAL HISTORY:: All Active Problems. Abdominal pain, vomiting, and diarrhea (Acute). Pancolitis (Acute). Transaminitis (Acute). Hypokalemia (Acute). Nausea (Acute). Gastritis (Acute). Chronic alcoholic pancreatitis (Acute). Contusion of right knee (Acute). Lyme disease (Acute). Abrasion (Acute). Trauma (Acute). Inflammatory arthritis (Acute). Alcoholic ketoacidosis (Acute). Vomiting (Acute). Abdominal pain (Acute). Alcoholic ketoacidosis (Acute). Abdominal pain with vomiting (Acute). Depression with anxiety (Acute). Family history of schizophrenia (Chronic). Father. Migraine with aura (Acute). Homeless (Acute). Colitis (Acute). Alcoholic fatty liver (Acute). Nausea and vomiting (Acute). Hypoglycemia (Acute). Severe depression (Chronic). Delirium (Acute). Alcohol abuse (Chronic). Heroin abuse (Chronic). Elevated transaminase level (Acute). Chronic back pain (Chronic). Anxiety, generalized (Chronic). Medical History. Depression. History of alcohol abuse. Opiate addiction. Surgical History. No significant past surgical history PREVIOUS FUNCTIONAL STATUS/SOCIAL/FAMILY SUPPORTS:: Jose has a long history of struggling with mental health, substance use and in relationships. He is attached to [employer] and has found support with [employer] regularly. He is living in a house in [facility]. He is independent with ADL's. CURRENT FUNCTIONAL STATUS:: Jose was lying in bed when CM met with him. He reported that he is tired and not feeling well today. He stated that he spoke to the MD earlier, but he isn't sure of his plan. CM informed him that he is observation status, and will remain overnight to be re evaluated in the morning. CM will continue to follow. ADVANCE DIRECTIVES:: None on file. Has patient been provided with info about the portal/API?: Yes Did the patient sign up for the portal?: No CODE STATUS:: Full Code INSURANCE COVERAGE / FINANCIAL ISSUES:: [facility] CURRENT HOME/COMMUNITY SERVICES/EQUIPMENT:: [facility] PRIMARY CARE PHYSICIAN:: Joel Myrter POTENTIAL DISCHARGE NEEDS:: Last dose letter for [facility], follow up appointments, recovery resources. PATIENT/FAMILY EDUCATION NEEDS:: Review discharge instructions and limitations, discussion of self care needs inlcuding ask me three. ANTICIPATED BARRIERS TO DISCHARGE:: None. TRANSPORTATION:: [facility] bus vs private vehicle. PLAN:: Anticipate Jose will return home once medically cleared. He will likely take the [facility] bus home. He will follow up with his PCP and discharge plan of care . CM will continue to follow.
[2022-02-21 11:22] LABS: HGB 12.1 g/dL (13.5-17.5); MCH 33.9 pg (27.0-33.0); MCHC 34.6 % (32.0-36.0); MCV 98 fL (80-95); MPV 10.4 fL (8.0-11.0); Platelet Count 175 10^3/uL (130-400); RBC 3.57 10^6/uL (4.36-5.78); RDW 12.9 % (11.8-14.1); RDW-SD 46.7 fL; WBC 14.79 10^3/uL (4.4-10.8)
[2022-02-21 11:39] LABS: ALT 267 U/L (16-63); AST 451 U/L (15-37); Albumin 2.7 g/dL (3.4-5.0); Alkaline Phosphatase 244 U/L (46-116); Anion Gap 4.9 mmol/L (3-11); BUN 7 mg/dL (7-18); Bilirubin, Total 0.7 mg/dL (0.2-1.0); CO2 27.1 mmol/L (21.0-32.0); CREATININE 0.8 mg/dL (0.70-1.30); Calcium 8.2 mg/dL (8.5-10.1); Chloride 105 mmol/L (98-107); Glucose 131 mg/dL (74-106); Potassium 3.9 mmol/L (3.5-5.1); Sodium 137 mmol/L (136-145); Total Protein 5.8 g/dL (6.4-8.2)
[2022-02-21] MEDS: LORazepam 20 MG/10 ML VIAL IVP ×2 (16:26→19:31)
[2022-02-21] MEDS: LORazepam 20 MG/10 ML VIAL 4 MG IVP (21:16)
[2022-02-21 21:41] LABS: ALT 215 U/L (16-63); AST 244 U/L (15-37); Albumin 2.8 g/dL (3.4-5.0); Alkaline Phosphatase 233 U/L (46-116); Bilirubin, Direct 0.2 mg/dL (0.0-0.2); Bilirubin, Total 0.5 mg/dL (0.2-1.0); Total Protein 6.1 g/dL (6.4-8.2)
[2022-02-21] MEDS: PHENobarbital 130 MG/ML VIAL IVP ×5 (22:11→23:35)
[2022-02-21 22:56] LABS: Lab Add On Test DONE
[2022-02-21 23:03] LABS: Magnesium 1.9 mg/dL (1.8-2.4)
[2022-02-22] VITALS (149 sets, daily range): BP systolic 139–168; BP diastolic 56–93; PULSE 35–100; RESP 14–56; TEMP 37; O2SAT 93–98
[2022-02-22] MEDS: PHENobarbital 130 MG/ML VIAL IVP ×6 (00:13→01:26)
[2022-02-22] MEDS: Normal Saline Flush 10 ML SYR IVP ×4 (00:18→05:55)
[2022-02-22] MEDS: dexmedeTOMidine IN 0.9 % NACL 400 MCG/100 ML BTL IVPB (02:52)
[2022-02-22 06:28] LABS: Abs Immature Grans 0.06 10^3/uL (0.0-0.06); Absolute Basophil Count 0.02 10^3/uL (0.0-0.2); Absolute Eosinophil Count 0.06 10^3/uL (0.0-0.7); Absolute Monocyte Count 1.22 10^3/uL (0.1-0.8); Absolute Neutrophil Count 8.68 10^3/uL (1.2-6.7); Basophils % 0.2; Eosinophils % 0.5; HCT 36.1 % (40.0-50.0); HGB 12.5 g/dL (13.5-17.5); Immature Grans % 0.5; Lymphocytes % 16.7; MCH 33.2 pg (27.0-33.0); MCHC 34.6 % (32.0-36.0); MCV 96 fL (80-95); MPV 11.4 fL (8.0-11.0); Monocytes % 10.1; Platelet Count 175 10^3/uL (130-400); RBC 3.77 10^6/uL (4.36-5.78); RDW 12.3 % (11.8-14.1); RDW-SD 43.5 fL; WBC 12.06 10^3/uL (4.4-10.8)
[2022-02-22 06:39] LABS: Absolute Lymphocyte Count 2.01 10^3/uL (1.2-3.4)
[2022-02-22 06:42] LABS: BUN 5 mg/dL (7-18); CREATININE 0.9 mg/dL (0.70-1.30); Calcium 8.5 mg/dL (8.5-10.1); Chloride 105 mmol/L (98-107); Glucose 115 mg/dL (74-106); Potassium 3.7 mmol/L (3.5-5.1); Sodium 139 mmol/L (136-145)
[2022-02-22 06:47] LABS: ALT 184 U/L (16-63); AST 170 U/L (15-37); Albumin 2.9 g/dL (3.4-5.0); Alkaline Phosphatase 221 U/L (46-116); Bilirubin, Direct 0.1 mg/dL (0.0-0.2); Bilirubin, Total 0.5 mg/dL (0.2-1.0); Total Protein 6.2 g/dL (6.4-8.2)
--- NOTE | 2022-02-22 08:30 | W.PM.PROGNOT ---
Date of Service Date of service: 02/22/22 Time of Service: 08:30 Assessment and Plan Assessment and plan (1) Alcohol withdrawal delirium, acute, hyperactive: Status: Acute Assessment and plan: We will continue to treat the signs and symptoms of acute alcohol withdrawal using phenobarbital protocol. If we can wean the dexmedetomidine later, we will try that, but it is not appropriate at this time. I will check a phenobarbital level today. Subjective Subjective Interval history since last seen: His anxiety and agitation increase yesterday with escalating CIWA scores despite benzodiazepine treatment. Eventually required transfer to the intensive care unit for CIWA score greater than 20. LFTs were mildly improved, and benzo diazepam was transition to phenobarbital. Dexmedetomidine was added to help with agitation. Despite maximal medical therapy, his agitation poses a danger to himself. He required four-point restraints. Exam Narrative Exam Narrative: He is agitated, and follows only minimal commands. Const General: anxious and not diaphoretic Orientation: confused Limitations: altered mental status HENMT Mouth: moist mucous membranes Eyes General: appearance normal, both eyes and all related structures Conjunctivae: conjunctivae normal Sclera: sclerae normal Pupils: PERRL Resp Effort & Inspection: normal respiratory effort, no audible wheezes and no cough Auscultation: clear to auscultation bilaterally GI Inspection: normal to inspection and non-distended Palpation: soft, no guarding and nontender Neuro General: patient confused Cognition: abnormal cognition Motor: strength 5/5 throughout Pupils: Normal pupillary reactivity/response: bilateral Objective Last Vital Signs Temp 98.6 F 02/22/22 08:00 Pulse 41 L 02/22/22 08:00 Resp 19 02/22/22 08:00 BP 140/66 02/22/22 08:00 Pulse Ox 96 02/22/22 07:35 Laboratory Results - last 24 hr 02/21/22 02/21/22 02/21/22 11:00 11:00 21:17 WBC 14.79 H RBC 3.57 L Hgb 12.1 L Hct 35.0 L MCV 98 H MCH 33.9 H MCHC 34.6 RDW 12.9 Plt Count 175 MPV 10.4 Immature Gran % Neutrophils % Lymphocytes % Monocytes % Eosinophils % Basophils % Nucleated RBC % Absolute Neutrophils Absolute Lymphocytes Absolute Monocytes Absolute Eosinophils Absolute Basophils Sodium 137 Potassium 3.9 D Chloride 105 Carbon Dioxide 27.1 Anion Gap 4.9 BUN 7 Creatinine 0.8 Estimated GFR/1.73 m2 >= 60.00 Glucose 131 H Calcium 8.2 L Magnesium Total Bilirubin 0.7 0.5 Conjugated Bilirubin 0.2 AST 451 H 244 H ALT 267 H 215 H Alkaline Phosphatase 244 H 233 H Total Protein 5.8 L 6.1 L Albumin 2.7 L 2.8 L Add-On Test Request 02/21/22 02/21/22 02/22/22 21:17 21:17 05:37 WBC RBC Hgb Hct MCV MCH MCHC RDW Plt Count MPV Immature Gran % Neutrophils % Lymphocytes % Monocytes % Eosinophils % Basophils % Nucleated RBC % Absolute Neutrophils Absolute Lymphocytes Absolute Monocytes Absolute Eosinophils Absolute Basophils Sodium 139 Potassium 3.7 Chloride 105 Carbon Dioxide 25.0 Anion Gap 9.0 BUN 5 L Creatinine 0.9 Estimated GFR/1.73 m2 >= 60.00 Glucose 115 H Calcium 8.5 Magnesium 1.9 Total Bilirubin Conjugated Bilirubin AST ALT Alkaline Phosphatase Total Protein Albumin Add-On Test Request DONE 02/22/22 02/22/22 05:43 05:47 WBC 12.06 H RBC 3.77 L Hgb 12.5 L Hct 36.1 L MCV 96 H MCH 33.2 H MCHC 34.6 RDW 12.3 Plt Count 175 MPV 11.4 H Immature Gran % 0.5 Neutrophils % 72.0 Lymphocytes % 16.7 Monocytes % 10.1 Eosinophils % 0.5 Basophils % 0.2 Nucleated RBC % 0.0 Absolute Neutrophils 8.68 H Absolute Lymphocytes 2.01 Absolute Monocytes 1.22 H Absolute Eosinophils 0.06 Absolute Basophils 0.02 Sodium Potassium Chloride Carbon Dioxide Anion Gap BUN Creatinine Estimated GFR/1.73 m2 Glucose Calcium Magnesium Total Bilirubin 0.5 Conjugated Bilirubin 0.1 AST 170 H ALT 184 H Alkaline Phosphatase 221 H Total Protein 6.2 L Albumin 2.9 L Add-On Test Request PAWSS Have you Been Recently Intoxicated or Drunk Within the Last 30 days?: Yes Have you Ever Experienced Previous Episodes of Alcohol Withdrawal?: Yes Have you ever Experienced Withdrawal Seizures?: Yes Have you ever Experienced Delirium Tremens(DT)s?: Yes Have you ever undergone Alcohol Rehabilitation Treatment (i.e, inpt ot outpatient treatment programs)?: Yes Have you ever Experienced Blackouts?: Yes Have you ever Combined Alcohol with other Downers within the last 90 days?: Yes Have you ever Combined Alcohol with any other Substance of Abuse during the last 90 days?: Yes Positive Blood Alcohol level on Presentation? [PCS.BAL]: Unable to Obtain Evidence of Increased Autonomic Activity (i.e. HR>120, tremor, sweating, agitation, nausea)?: Yes Result: 9
[2022-02-22] MEDS: POTASSIUM CHLORIDE/D5-0.9%NACL 1,000 ML 80 MEQ IV ×2 (08:47→21:20)
[2022-02-22 09:03] LABS: PHENOBARBITAL 43.9 ug/mL (15.0-40.0)
[2022-02-22] MEDS: dexmedeTOMidine IN 0.9 % NACL 400 MCG/100 ML BTL 8 MCG IVPB (09:32)
--- NOTE | 2022-02-22 10:45 | PHACLINREV_ITS ---
Pharmacy Admission Review - Admission Clinical Review (Last Reviewed 02/21/22 @ 10:02 by Giuseppe Vicente MD) Alcohol withdrawal delirium, acute, hyperactive (Acute) Abdominal pain, vomiting, and diarrhea (Acute) Pancolitis (Acute) Transaminitis (Acute) Hypokalemia (Acute) No Known Allergies Allergy (Verified 01/27/22 14:31) Resuscitation Status Full Code Height 5 ft 6 in Weight 63 kg Abdominal pain/V&D,Alc withdrawl - Comments Comments/Follow Ups: Patient has rec'd 1430mg Phenobarb so far and has exceeded the soft stop Phenobarbital level per protocol (SS: 1280mg based on IBW) and is approaching hard stop (HS: 1920mg). MD aware per nurse. Precedex infusion increased to 0.7mg/kg...the max in the protocol guidelines, to continue for 24 hours only. Precedex started 02/22/22 ~3am. Previously patient rec'd 6mg oral Lorazepam and 10mg IV Lorazepam before being transferred to ICU and started Phenobarbital. Pt continues to score CIWA>20 and is in harm to himself and others, currently NPO - Renal Dosing Renal Dosing: BUN 5 mg/dL (7-18) L 02/22/22 05:37 Creatinine 0.9 mg/dL (0.70-1.30) 02/22/22 05:37 Medications needing adjustments: Reviewed (CrCl~99ml/min) - Anticoagulation Anticoagulation: Hgb 12.5 g/dL (13.5-17.5) L 02/22/22 05:43 Hct 36.1 % (40.0-50.0) L 02/22/22 05:43 Plt Count 175 10^3/uL (130-400) 02/22/22 05:43 Creatinine 0.9 mg/dL (0.70-1.30) 02/22/22 05:37 DVT Prophylaxis: N/A - Opiate Usage Evaluate Pain Scale/Pains Meds: N/A - Relevant Labs Sodium 139 mmol/L (136-145) 02/22/22 05:37 Potassium 3.7 mmol/L (3.5-5.1) 02/22/22 05:37 Chloride 105 mmol/L (98-107) 02/22/22 05:37 Magnesium 1.9 mg/dL (1.8-2.4) 02/21/22 21:17 Electrolytes, C-Reactive P, ESR: Intervened (Phenobarb level 43.9 (range is 15- 40)) - DM Control DM Control: Glucose 115 mg/dL (74-106) H 02/22/22 05:37 Insulin Dosing: N/A - BP Control BP Control: Blood Pressure [Left Arm] 146/93 Blood Pressure 140/66 Blood Pressure 140/66 Blood Pressure 140/66 Blood Pressure 152/72 Blood Pressure 152/72 Blood Pressure 146/71 Blood Pressure 150/64 If elevated: Reviewed (BP okay, HR in the 40's) - IV to PO Switch IV Medications: Reviewed (Ketorolac, Phenobarb, Zofran) - Home Meds Home Med List reviewed: Reviewed (Suboxone film 8/2mg daily with 12/3mg daily last filled 02/12/22 for 7 day supply, therefore has not had it for a few days, OxyIR 5mg #20 tabs rec'd 01/27/22 from for pancreatitis/abdominal pain) - Current meds Current Medication Order Review: Reviewed (Patient could use a PPI while an inpatient, IVF's with KCL running)
[2022-02-22 10:49] LABS: BE 1 mmol/L (-2-3); HCO3 24 mmol/L (22-26); pCO2 33 mmHg (35-45); pH 7.48 (7.35-7.45); pO2 66 mmHg (80-105); sO2 95 % (95-98); tCO2 22 mmol/L (23-27)
[2022-02-22 10:52] LABS: FIO2 21 %; Site Left Radial
[2022-02-22] MEDS: Ketorolac 30 MG/ML VIAL IVP (12:13)
[2022-02-23] VITALS (73 sets, daily range): BP systolic 107–156; BP diastolic 56–88; PULSE 35–88; RESP 10–44; TEMP 36.6–37.2; O2SAT 93–100
[2022-02-23] MEDS: dexmedeTOMidine IN 0.9 % NACL 400 MCG/100 ML BTL 8 MCG IVPB (00:10)
[2022-02-23 08:11] LABS: HCT 38.9 % (40.0-50.0); MCH 33.5 pg (27.0-33.0); MCV 93 fL (80-95); RBC 4.18 10^6/uL (4.36-5.78); RDW 12.4 % (11.8-14.1); RDW-SD 42.5 fL; WBC 13.57 10^3/uL (4.4-10.8)
--- NOTE | 2022-02-23 08:15 | RT.EKG_ITS ---
APPROVED REPORT Exam: Resting ECG Reason for Exam: med changes Patient Location: I HR:38 bpm ECG Measurements Heart Rate 38 AXIS GA 140 P 61 QRSd 86 QRS 75 QT 528 T 64 QTc 420 Conclusion Sinus bradycardia...rate< 50
--- NOTE | 2022-02-23 08:46 | W.PM.PROGNOT ---
Date of Service Date of service: 02/23/22 Time of Service: 08:46 Assessment and Plan Assessment and plan (1) Alcohol withdrawal delirium, acute, hyperactive: Status: Acute Assessment and plan: Patient is sedated and unable to be aroused today. Will continue with CIWA Abdomen was soft to palpation. Subjective Subjective Interval history since last seen: Arrived with patient in bed. He was sedated and unable to be aroused. Exam Const General: other Orientation: other Resp Effort & Inspection: normal respiratory effort, no audible wheezes and no cough GI Palpation: soft, no guarding and nontender Objective Last Vital Signs Temp 36.8 C 02/23/22 00:31 Pulse 41 L 02/23/22 00:36 Resp 20 02/23/22 06:20 BP 156/62 H 02/23/22 00:36 Pulse Ox 93 02/23/22 06:20 Laboratory Results - last 24 hr 02/22/22 02/22/22 02/23/22 05:43 10:50 07:45 WBC 13.57 H RBC 4.18 L Hgb 14.0 Hct 38.9 L MCV 93 MCH 33.5 H MCHC 36.0 RDW 12.4 Plt Count MPV ABG Sample Site Left Radial ABG pH 7.48 H ABG pCO2 33 L ABG pO2 66 L ABG HCO3 24 ABG Total CO2 22 L ABG O2 Saturation 95 ABG Base Excess 1 FiO2 21 Phenobarbital 43.9 H PAWSS Have you Been Recently Intoxicated or Drunk Within the Last 30 days?: Yes Have you Ever Experienced Previous Episodes of Alcohol Withdrawal?: Yes Have you ever Experienced Withdrawal Seizures?: Yes Have you ever Experienced Delirium Tremens(DT)s?: Yes Have you ever undergone Alcohol Rehabilitation Treatment (i.e, inpt ot outpatient treatment programs)?: Yes Have you ever Experienced Blackouts?: Yes Have you ever Combined Alcohol with other Downers within the last 90 days?: Yes Have you ever Combined Alcohol with any other Substance of Abuse during the last 90 days?: Yes Positive Blood Alcohol level on Presentation? [PCS.BAL]: Unable to Obtain Evidence of Increased Autonomic Activity (i.e. HR>120, tremor, sweating, agitation, nausea)?: Yes Result: 9
--- NOTE | 2022-02-23 09:08 | W.PULMCC ---
General Date of Service Date of service: 02/23/22 Time of Service: 08:45 Reason for Admission to ICU: Alcohol withdrawal Agitation Colitis Assessment and Plan Assessment and plan (1) Alcohol withdrawal delirium, acute, hyperactive: Status: Acute (2) Abdominal pain, vomiting, and diarrhea: Status: Acute (3) Pancolitis: Status: Acute (4) Transaminitis: Status: Acute (5) Hypokalemia: Status: Acute (6) Polysubstance use disorder: Status: Acute (7) Agitation: Status: Acute Assessment and plan: This is a 36 yo man admitted to the ICU for EtOH withdrawal and agitation in addition to transaminitis. His elevated LFT's as improving with supportive care. His EtOH withdrawal has been sufficiently treated with phenobarb (phenobarb level is supratherapeutic). I would not recommend any further benzo's or phenobarb. His agitation could be due to withdrawal of other substances, pain or behavioral in nature. He has been on Precedex for 24 hours and we should try to wean this off. To facilitate this I recommend adding clonidine 0.2 tid and seroquel 50mg qam and qhs while titrating down Precedex to a RASS -1 to 1. If he is unable to take PO we can use Zyprexa IV qhs and qam in addition to Haldol as needed. Prior to either of these regimens we need to obtain an EKG given his bradycardia and the QTc prolonging nature of all of these medications. Once he is more calm and alert and able to take PO the fluids can be discontinued. Recommendations Pulmonary: No acute concerns Cardiac: Recommend EKG to assess QTc Renal: No acute concerns I&O: Intake & Output 02/20/22 02/21/22 02/22/22 02/23/22 23:59 23:59 23:59 23:59 Intake Total 1350 / 1350 1095.599 / 1095.599 133.120 / 133.120 Output Total 100 / 100 3200 / 3200 1600 / 1600 Balance 1250 / 1250 -2104.401 / -2104.401 -1466.880 / -1466.880 Weight 70.307 kg 64 kg 63 kg 61 kg Daily Fluid Goal:: even GI Nutrition: Transaminitis - resolving - supportive care - continue to trend LFT's Colitis - promote PO intake as tolerated Date of Last Bowel Movement: 02/23/22 Infectious Disease: No acute concerns Hematologic: No acute concerns Neurologic: EtOH withdrawal - recommend against further phenobarb or benzo's - withdrawal had been adequately treated - on thiamine and MVI Agitation - appropriate pain control per primary service - recommend starting clonidine 0.2mg tid as blood pressure tolerates - recommend seroquel 50mg qam and qhs - recommend removal of Flores once able - if unable to take PO can try Zyprexa 5mg IV qam and qhs and Haldol prn - prior to any of the above ensure QTc is not prolonged - wean Precedex Endocrine: No acute concerns Lines: PIV Flores Prophylaxis: recommend starting Lovenox for DVT ppx Code Status: Resuscitation Status Full Code Subjective Critical and life-threatening events over the past 24 hours: This is a 36 yo man who has a history of polysubstance use disorder including EtOH with prior withdrawal who is admitted to the ICU wor EtOH withdrawal and agitation. He presented with nausea and vomiting that had been worsening and he had stopped drinking due to financial constraints. He had a CT performed that was significant for a colitis. His labs also found acute liver failure and a hypokalemia. His withdrawal was originally treated with benzo's, which was later switched to phenobarb. A phenobarb level was obtained which did find a supratherapeutic level, but despite appropriate treatment of his withdrawals he remained agitated necessitating a Precedex infusion. On my assessment today he is on the Precedex and easily arousable while on 0.7. Per nursing reports he has episodes of significant agitation that pose safety concerns to both himself and to staff. He tells me he is ahvign significant back pain. He told me he did not know where he was and that they kidnapped me. Exam Narrative Exam Narrative: Gen: NAD, normal respiratory effort, well-nourished HENT: PERRL, nasal turbinates normal without erythema or inflammation, moist oral mucosa, Mallampati 2, No LAD or JVD Chest: No respiratory distress, normal appearance of chest, clear to auscultation bilaterally, no crackles or wheezes, normal inspiratory effort Heart: regular rate and rhythym, no murmurs, rubs or gallops Abdomen: Non-distended, soft, non tender Extremities: No clubbing, edema, cyanosis, rashes Neuro: AAOx3 , non focal Psych: cooperative, appropriate mental affect Most Recent VS/Results Last Vital Signs Temp 36.8 C 02/23/22 08:00 Pulse 37 L 02/23/22 08:54 Resp 20 02/23/22 08:54 BP 145/63 H 02/23/22 08:54 Pulse Ox 96 02/23/22 08:54 Laboratory Results - last 24 hr 02/22/22 02/23/22 10:50 07:45 WBC 13.57 H RBC 4.18 L Hgb 14.0 Hct 38.9 L MCV 93 MCH 33.5 H MCHC 36.0 RDW 12.4 Plt Count MPV ABG Sample Site Left Radial ABG pH 7.48 H ABG pCO2 33 L ABG pO2 66 L ABG HCO3 24 ABG Total CO2 22 L ABG O2 Saturation 95 ABG Base Excess 1 FiO2 21 Review of Systems Unobtainable due to mental status Time spent with patient Time spent in Critical Care: 40 Time spent in Critical care included: Chart review, Documenting critically ill care, Time at immediate bedside and Discussing critically ill care with other medical staff Multi-Disciplinary Checklist Lines/Tubes CENTRAL LINE: no ARTERIAL LINE: no FLORES: yes, Flores Day#: 2 ENDOTRACHEAL TUBE: no ICU Maintenance GLUCOSE 140-180mg/dL: yes NUTRITION AT GOAL: no, Reason/Intervention: patient has been sedated PRESSURE ULCER: no RESTRAINTS: yes, Reviewed Necessity: Yes ANTIBIOTICS(if yes, consider Stewardship): No Social Issues FAMILY UPDATED: no, Reason/Intervention: defer to primary service PT/OT: no, Reason/Intervention: inappropriate at this time GOALS/DISPOSITION/SAMPLE PULLER: yes CODE STATUS: Full Prophylaxis DVT PROPHYLAXIS: no Reason/Intervention: recommend starting this today GI PROPHYLAXIS: no
--- NOTE | 2022-02-23 09:36 | PDOC.CMPRO ---
- If Service Date Differs Date of service: 02/23/22 Time of Service: 09:36 Care Management Progress Note S/O: Jose was using the bathroom when CM attempted to meet with him. Per report, earlier today he was sedated and not able to engage with the provider. CM talked to his RN, who reported that he has been more alert this afternoon. He remains on CIWA, but his most recent score was 0. CM will continue to follow. A: Jose is a 36 year old male admitted to [facility] on 02/20/22 with vomiting, diarrhea, pancolitis. P: Anticipate Jose will return home once medically cleared. He will likely take the [facility] bus home. He will follow up with his PCP and discharge plan of care. CM will continue to follow.
[2022-02-23] MEDS: POTASSIUM CHLORIDE/D5-0.9%NACL 1,000 ML 80 MEQ IV (10:55)
[2022-02-23 11:18] LABS: Hepatitis A Antibody IgM Negative (Negative); Hepatitis B Core Antibody Negative (Negative); Hepatitis B surface Ag Negative (Negative); Hepatitis C Ab w Rflx HCV PCR Negative (Negative)
--- NOTE | 2022-02-23 13:46 | NUR.NOTE ---
Patient has complaints of an 8 out of 10 belly pain. RN notified. Nursing Note:
[2022-02-23] MEDS: Ondansetron 4 MG/2 ML VIAL 8 MG IVP (13:53)
[2022-02-23] MEDS: Ketorolac 30 MG/ML VIAL IVP (13:53)
[2022-02-23] MEDS: Sucralfate 1 GM TAB PO ×2 (16:15→21:08)
[2022-02-23] MEDS: Normal Saline Flush 10 ML SYR IVP (21:08)
[2022-02-23] MEDS: Famotidine 20 MG TAB PO (21:08)
[2022-02-24] MEDS: Ketorolac 30 MG/ML VIAL IVP ×2 (00:38→09:26)
[2022-02-24] MEDS: Normal Saline Flush 10 ML SYR IVP ×3 (00:38→09:27)
[2022-02-24] MEDS: POTASSIUM CHLORIDE/D5-0.9%NACL 1,000 ML 80 MEQ IV (00:39)
[2022-02-24 02:56] VITALS: BP 134/84; PULSE 63; RESP 16; TEMP 36.7; O2SAT 100
[2022-02-24 07:31] VITALS: BP 127/77; PULSE 51; RESP 18; TEMP 37; O2SAT 99
[2022-02-24] MEDS: Sucralfate 1 GM TAB PO (07:35)
[2022-02-24] MEDS: Pantoprazole 40 MG TABCR PO (07:35)
--- NOTE | 2022-02-24 08:45 | W.PM.PROGNOT ---
Date of Service Date of service: 02/24/22 Time of Service: 08:45 Objective Last Vital Signs Temp 37.0 C 02/24/22 07:31 Pulse 51 L 02/24/22 07:31 Resp 18 02/24/22 07:31 BP 127/77 02/24/22 07:31 Pulse Ox 99 02/24/22 07:31 Laboratory Results - last 24 hr 02/20/22 02/23/22 02/23/22 17:45 08:29 08:30 Sodium Cancelled Potassium Cancelled Chloride Cancelled Carbon Dioxide Cancelled Anion Gap Cancelled BUN Cancelled Creatinine Cancelled Est GFR (CKD-EPI 2020) Cancelled Glucose Cancelled Calcium Cancelled Phosphorus Cancelled Magnesium Cancelled Total Bilirubin Cancelled AST Cancelled ALT Cancelled Alkaline Phosphatase Cancelled Total Protein Cancelled Albumin Cancelled Hepatitis A IgM Ab Negative Hep Bs Antigen Negative Hep B Core Total Ab Negative Hepatitis C Antibody Negative PAWSS Have you Been Recently Intoxicated or Drunk Within the Last 30 days?: Yes Have you Ever Experienced Previous Episodes of Alcohol Withdrawal?: Yes Have you ever Experienced Withdrawal Seizures?: Yes Have you ever Experienced Delirium Tremens(DT)s?: Yes Have you ever undergone Alcohol Rehabilitation Treatment (i.e, inpt ot outpatient treatment programs)?: Yes Have you ever Experienced Blackouts?: Yes Have you ever Combined Alcohol with other Downers within the last 90 days?: Yes Have you ever Combined Alcohol with any other Substance of Abuse during the last 90 days?: Yes Positive Blood Alcohol level on Presentation? [PCS.BAL]: Unable to Obtain Evidence of Increased Autonomic Activity (i.e. HR>120, tremor, sweating, agitation, nausea)?: Yes Result: 9
--- NOTE | 2022-02-24 08:57 | W.PM.DS.N ---
Date of service: 02/24/22 Time of Service: 08:57 DS: Diagnosis Discharge Diagnosis (1) Alcohol withdrawal delirium, acute, hyperactive: Status: Acute (2) Abdominal pain, vomiting, and diarrhea: Status: Acute (3) Pancolitis: Status: Acute (4) Transaminitis: Status: Acute (5) Hypokalemia: Status: Acute (6) Polysubstance use disorder: Status: Acute (7) Agitation: Status: Acute Discharge Plan Disposition Patient Disposition: HOME Condition: Stable Discharge Details Reason For Visit: Vomiting and diarrhea,Pancolitis,Transaminitis Admit Date/Time: 02/23/22 11:58 Admit Provider: Zoraida Fox Attending Provider: Zoraida Fox Primary Care Provider: Joel Martinez [facility] Course Hospital Course: see addendum Home Meds and New Rx's Prescriptions: No Action buprenorphine-naloxone 8-2 mg film 1 film SL DAILY ondansetron 4 mg tablet,disintegrating 4 mg PO TID PRN (Reason: nausea and vomiting) Qty: 6 0RF pantoprazole [Protonix] 40 mg tablet,delayed release (DR/EC) 40 mg PO DAILY Qty: 30 0RF sucralfate [Carafate] 1 gram tablet 1 gm PO QACHS Qty: 14 0RF famotidine [Pepcid] 20 mg tablet 20 mg PO DAILY Qty: 14 0RF buprenorphine-naloxone [Suboxone] 12-3 mg film 1 film sublingual DAILY Rx Instructions: TAKES IN ADDITION TO 8MG FILM, BUT HASN'T HAD IN OVER A WEEK -SW 02/23/22 Discharge Instructions Additional Instructions: -No alcohol -low fat diet -take medications -No aspirin/ibuprofen ordered Advil or Aleve or Naprosyn -limit coffee and soda -f/u Primary doctor on Wednesday or Activity:: Activity as Tolerated Equipment/Supplies:: No Equipment Needed Diet:: low fat diet Discharge Orders Discharge Orders: Discharge Order (Routine); Ordered 02/24/22 Ordered By: Becca Douglass DS: Summary Time Spent with Patient providing and/or coordinating discharge services: Less than 30 minutes Status at Discharge Functional status at discharge: independent ambulation Overall status at discharge: patient is back to baseline Mental Status: mental status grossly normal Speech and Movement: speech and movement normal Mood: congruent mood Affect: normal affect Exam Psych Mental Status: mental status grossly normal Speech and Movement: speech and movement normal Mood: congruent mood Affect: normal affect DS: Data Vitals/I&O Vitals and I&O: Vital Signs Temperature 37.0 C 02/24/22 07:31 Temperature Source Tympanic 02/24/22 07:31 Pulse 51 L 02/24/22 07:31 Pulse Rhythm Regular 02/24/22 03:00 Pulse 88 02/23/22 15:00 Respiratory Rate 18 02/24/22 07:31 Respiratory Effort 02/24/22 03:00 Respiratory Depth Normal 02/24/22 03:00 Respiratory Pattern Normal 02/24/22 03:00 Blood Pressure 127/77 02/24/22 07:31 Blood Pressure Mean 73 02/23/22 16:01 Blood Pressure Position Sitting 02/23/22 15:34 Pulse Oximetry 99 02/24/22 07:31 Oxygen Delivery Method Room Air 02/24/22 07:31 Oxygen Flow Rate 0 02/24/22 07:31 Pain Level 7 02/24/22 07:31 Intake & Output 02/23/22 02/23/22 02/24/22 11:59 23:59 11:59 Intake Total 1146.960 / 2756.960 1610 / 2756.960 Output Total 3000 / 3001 1 / 3001 Balance -1853.040 / -909.946 0796 / -244.040 Weight 61 kg 61.5 kg Intake: IV 1146.960 / 2146.960 1000 / 2146.960 Oral 610 / 610 Output: Urine 3000 / 3000 Stool Other: Urine Color Yellow Urine Appearance Clear Comment nash to gravity Nash catheter discontinued ginna colored urine Stool Size Moderate Stool Characteristics Soft Soft Brown [place] Data Completed and Pending Labs on day of discharge: Labs from last 24 hours 02/24/22 02/23/22 02/23/22 06:23 08:30 08:29 Sodium Pending Cancelled Potassium Pending Cancelled Chloride Pending Cancelled Carbon Dioxide Pending Cancelled Anion Gap Pending Cancelled BUN Pending Cancelled Creatinine Pending Cancelled Est GFR (CKD-EPI 2020) Pending Cancelled Glucose Pending Cancelled Calcium Pending Cancelled Phosphorus Cancelled Magnesium Pending Cancelled Total Bilirubin Pending Cancelled AST Pending Cancelled ALT Pending Cancelled Alkaline Phosphatase Pending Cancelled Total Protein Pending Cancelled Albumin Pending Cancelled Hepatitis A IgM Ab Hep Bs Antigen Hep B Core Total Ab Hepatitis C Antibody 02/20/22 17:45 Sodium Potassium Chloride Carbon Dioxide Anion Gap BUN Creatinine Est GFR (CKD-EPI 2020) Glucose Calcium Phosphorus Magnesium Total Bilirubin AST ALT Alkaline Phosphatase Total Protein Albumin Hepatitis A IgM Ab Negative Hep Bs Antigen Negative Hep B Core Total Ab Negative Hepatitis C Antibody Negative PFSH All Active Problems (Updated 02/24/22 @ 00:07 by TIANA ODELL) Agitation (Acute) Polysubstance use disorder (Acute) Alcohol withdrawal delirium, acute, hyperactive (Acute) Abdominal pain, vomiting, and diarrhea (Acute) Pancolitis (Acute) Transaminitis (Acute) Hypokalemia (Acute) Contusion of right knee (Acute) Lyme disease (Acute) Abrasion (Acute) Trauma (Acute) Inflammatory arthritis (Acute) Alcoholic ketoacidosis (Acute) Vomiting (Acute) Abdominal pain (Acute) Alcoholic ketoacidosis (Acute) Abdominal pain with vomiting (Acute) Depression with anxiety (Acute) Family history of schizophrenia (Chronic) Father Migraine with aura (Acute) Homeless (Acute) Colitis (Acute) Alcoholic fatty liver (Acute) Nausea and vomiting (Acute) Hypoglycemia (Acute) Severe depression (Chronic) Delirium (Acute) Alcohol abuse (Chronic) Heroin abuse (Chronic) Elevated transaminase level (Acute) Chronic back pain (Chronic) Anxiety, generalized (Chronic) Medical History Depression History of alcohol abuse Opiate addiction Surgical History No significant past surgical history Family History Mother Heart disease Asthma Father No problems noted. Sister Asthma Sister No problems noted. Brother No problems noted. Grandfather Essential hypertension Heart disease Asthma Grandfather Essential hypertension Heart disease Grandmother No problems noted. Grandmother No problems noted. Son No problems noted. Daughter No problems noted. 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
[2022-02-24] MEDS: Thiamine 100 MG TAB PO (09:17)
[2022-02-24] MEDS: Multivitamin TAB 1 TAB PO (09:17)
--- NOTE | 2022-02-24 09:27 | W.PM.PROGNOT ---
Date of Service Date of service: 02/24/22 Time of Service: 09:27 Assessment and Plan Assessment and plan (1) Alcohol withdrawal delirium, acute, hyperactive: Status: Acute (2) Abdominal pain, vomiting, and diarrhea: Status: Acute (3) Pancolitis: Status: Acute (4) Transaminitis: Status: Acute (5) Hypokalemia: Status: Acute (6) Polysubstance use disorder: Status: Acute (7) Agitation: Status: Acute Assessment and plan: Patient is awake and alert this morning. He is eager to be d/c home. Mild Abdominal tenderness. Encouraged and discussed taking protonix, pepcid and carafate as prescribed to help treat/prevent gastritis. Strongly encouraged he continue to abstain from ETOH consumption. D/C home later today. Subjective Subjective Interval history since last seen: Patient reports having some abdominal discomfort. Denies having any nausea or vomiting. Exam Const General: cooperative, healthy appearing and comfortable Orientation: alert and oriented x3 Resp Effort & Inspection: normal respiratory effort, no audible wheezes and no cough GI Inspection: normal to inspection Palpation: soft, guarding and tender Objective Last Vital Signs Temp 37.0 C 02/24/22 07:31 Pulse 51 L 02/24/22 07:31 Resp 18 02/24/22 07:31 BP 127/77 02/24/22 07:31 Pulse Ox 99 02/24/22 07:31 Laboratory Results - last 24 hr 02/20/22 02/23/22 02/23/22 17:45 08:29 08:30 Sodium Cancelled Potassium Cancelled Chloride Cancelled Carbon Dioxide Cancelled Anion Gap Cancelled BUN Cancelled Creatinine Cancelled Est GFR (CKD-EPI 2020) Cancelled Glucose Cancelled Calcium Cancelled Phosphorus Cancelled Magnesium Cancelled Total Bilirubin Cancelled AST Cancelled ALT Cancelled Alkaline Phosphatase Cancelled Total Protein Cancelled Albumin Cancelled Hepatitis A IgM Ab Negative Hep Bs Antigen Negative Hep B Core Total Ab Negative Hepatitis C Antibody Negative PAWSS Have you Been Recently Intoxicated or Drunk Within the Last 30 days?: Yes Have you Ever Experienced Previous Episodes of Alcohol Withdrawal?: Yes Have you ever Experienced Withdrawal Seizures?: Yes Have you ever Experienced Delirium Tremens(DT)s?: Yes Have you ever undergone Alcohol Rehabilitation Treatment (i.e, inpt ot outpatient treatment programs)?: Yes Have you ever Experienced Blackouts?: Yes Have you ever Combined Alcohol with other Downers within the last 90 days?: Yes Have you ever Combined Alcohol with any other Substance of Abuse during the last 90 days?: Yes Positive Blood Alcohol level on Presentation? [PCS.BAL]: Unable to Obtain Evidence of Increased Autonomic Activity (i.e. HR>120, tremor, sweating, agitation, nausea)?: Yes Result: 9
--- NOTE | 2022-02-24 09:35 | PDOC.CMDIS ---
- If Service Date Differs Date of service: 02/24/22 Time of Service: 09:35 LACE Index Scoring Tool - Questions: Length of Stay (in days): 1 Acuity (Admit via E.D.?): No E.D. Visits: 5 - Answers: Total Score: 5 Risk of Readmission: Low Risk Care Management Discharge Reason for Hospitalization: vomiting and diarrhea, pancolitis, transaminitis Discharge Plan: Jose is discharged home via [facility] with no services. He will follow up with his PCP on 03/03/22 as scheduled and follow discharge plan of care as prescribed. Patient/Family Education Needs: Review discharge instructions, limitations, medications and plan to follow up with community providers. ask me three. Services Needed at Discharge: Transportation ([facility], arranged by CM)
--- NOTE | 2022-02-24 09:37 | W.PM.DS.N ---
Date of service: 02/24/22 Time of Service: 09:37 DS: Diagnosis Discharge Diagnosis (1) Alcohol withdrawal delirium, acute, hyperactive: Status: Acute (2) Abdominal pain, vomiting, and diarrhea: Status: Acute (3) Pancolitis: Status: Acute (4) Transaminitis: Status: Acute (5) Hypokalemia: Status: Acute (6) Polysubstance use disorder: Status: Acute (7) Agitation: Status: Acute Discharge Plan Disposition Patient Disposition: HOME Condition: Stable Discharge Details Reason For Visit: Vomiting and diarrhea,Pancolitis,Transaminitis Admit Date/Time: 02/23/22 11:58 Admit Provider: Zoraida Fox Attending Provider: Zoraida Fox Primary Care Provider: Joel Martinez Hospital Course Hospital Course: see addendum Home Meds and New Rx's Prescriptions: No Action buprenorphine-naloxone 8-2 mg film 1 film SL DAILY ondansetron 4 mg tablet,disintegrating 4 mg PO TID PRN (Reason: nausea and vomiting) Qty: 6 0RF pantoprazole [Protonix] 40 mg tablet,delayed release (DR/EC) 40 mg PO DAILY Qty: 30 0RF sucralfate [Carafate] 1 gram tablet 1 gm PO QACHS Qty: 14 0RF famotidine [Pepcid] 20 mg tablet 20 mg PO DAILY Qty: 14 0RF buprenorphine-naloxone [Suboxone] 12-3 mg film 1 film sublingual DAILY Rx Instructions: TAKES IN ADDITION TO 8MG FILM, BUT HASN'T HAD IN OVER A WEEK -SW 02/23/22 Discharge Instructions Instructions: Low Fat Diet (DC), Alcohol Withdrawal (DC) Additional Instructions: -No alcohol -low fat diet -take medications -No aspirin/ibuprofen ordered Advil or Aleve or Naprosyn -limit coffee and soda -f/u Primary doctor on Wednesday or Stand Alone Forms: Nursing Discharge Form Referrals: Joel Martinez DO [Primary Care Provider] - 03/03/22 10:45 am Activity:: Activity as Tolerated Equipment/Supplies:: No Equipment Needed Diet:: low fat diet Discharge Orders Discharge Orders: Discharge Order (Routine); Ordered 02/24/22 Ordered By: Becca Douglass DS: Data Vitals/I&O Vitals and I&O: Vital Signs Temperature 37.0 C 02/24/22 07:31 Temperature Source Tympanic 02/24/22 07:31 Pulse 51 L 02/24/22 07:31 Pulse Rhythm Regular 02/24/22 03:00 Pulse 88 02/23/22 15:00 Respiratory Rate 18 02/24/22 07:31 Respiratory Effort 02/24/22 03:00 Respiratory Depth Normal 02/24/22 03:00 Respiratory Pattern Normal 02/24/22 03:00 Blood Pressure 127/77 02/24/22 07:31 Blood Pressure Mean 73 02/23/22 16:01 Blood Pressure Position Sitting 02/23/22 15:34 Pulse Oximetry 99 02/24/22 07:31 Oxygen Delivery Method Room Air 02/24/22 07:31 Oxygen Flow Rate 0 02/24/22 07:31 Pain Level 7 02/24/22 07:31 Intake & Output 02/23/22 02/24/22 02/24/22 18:59 06:59 18:59 Intake Total 1684.133 / 2684.133 1000 / 2684.133 708 / 708 Output Total 1401 / 1401 Balance 283.133 / 4714.910 9705 / 1283.133 708 / 708 Weight 61.5 kg Intake: IV 1074.133 / 2074.133 1000 / 2074.133 708 / 708 Oral 610 / 610 Output: Urine 1400 / 1400 Stool 1 / Other: Urine Appearance Clear Comment Perez catheter discontinued ginna colored urine Stool Size Moderate Stool Characteristics Soft Brown [place] Data Completed and Pending Labs on day of discharge: Labs from last 24 hours 02/24/22 02/23/22 02/23/22 06:23 08:30 08:29 Sodium Pending Cancelled Potassium Pending Cancelled Chloride Pending Cancelled Carbon Dioxide Pending Cancelled Anion Gap Pending Cancelled BUN Pending Cancelled Creatinine Pending Cancelled Est GFR (CKD-EPI 2020) Pending Cancelled Glucose Pending Cancelled Calcium Pending Cancelled Phosphorus Cancelled Magnesium Pending Cancelled Total Bilirubin Pending Cancelled AST Pending Cancelled ALT Pending Cancelled Alkaline Phosphatase Pending Cancelled Total Protein Pending Cancelled Albumin Pending Cancelled Hepatitis A IgM Ab Hep Bs Antigen Hep B Core Total Ab Hepatitis C Antibody 02/20/22 17:45 Sodium Potassium Chloride Carbon Dioxide Anion Gap BUN Creatinine Est GFR (CKD-EPI 2020) Glucose Calcium Phosphorus Magnesium Total Bilirubin AST ALT Alkaline Phosphatase Total Protein Albumin Hepatitis A IgM Ab Negative Hep Bs Antigen Negative Hep B Core Total Ab Negative Hepatitis C Antibody Negative PFSH All Active Problems (Updated 02/24/22 @ 00:07 by TIANA ODELL) Agitation (Acute) Polysubstance use disorder (Acute) Alcohol withdrawal delirium, acute, hyperactive (Acute) Abdominal pain, vomiting, and diarrhea (Acute) Pancolitis (Acute) Transaminitis (Acute) Hypokalemia (Acute) Contusion of right knee (Acute) Lyme disease (Acute) Abrasion (Acute) Trauma (Acute) Inflammatory arthritis (Acute) Alcoholic ketoacidosis (Acute) Vomiting (Acute) Abdominal pain (Acute) Alcoholic ketoacidosis (Acute) Abdominal pain with vomiting (Acute) Depression with anxiety (Acute) Family history of schizophrenia (Chronic) Father Migraine with aura (Acute) Homeless (Acute) Colitis (Acute) Alcoholic fatty liver (Acute) Nausea and vomiting (Acute) Hypoglycemia (Acute) Severe depression (Chronic) Delirium (Acute) Alcohol abuse (Chronic) Heroin abuse (Chronic) Elevated transaminase level (Acute) Chronic back pain (Chronic) Anxiety, generalized (Chronic) Medical History Depression History of alcohol abuse Opiate addiction Surgical History No significant past surgical history Family History Mother Heart disease Asthma Father No problems noted. Sister Asthma Sister No problems noted. Brother No problems noted. Grandfather Essential hypertension Heart disease Asthma Grandfather Essential hypertension Heart disease Grandmother No problems noted. Grandmother No problems noted. Son No problems noted. Daughter No problems noted. Daughter Asthma Social History Smoking/Tobacco Use Status: Current every day Tobacco Type: cigarettes Smoking risk assessment performed?: Yes Alcohol Intake: current Alcohol Intake frequency: 0-2 drinks per day Alcohol type: beer and hard liquor Counseling provided: other Drug use: Daily Substance use type: marijuana, opiates and IV drugs Details: States has used some oxycotin from his doctor, denies heroin use Housing: apartment Number of Children: 3 What type of physical activity do you participate in: none Drive intox or ride w/intox driver's license reviewing officer: No Working smoke detector in home: Yes Carbon monox detector in home: Yes Do you feel safe at home: Yes Do you feel safe in your relationship?: Yes
== END 2022-02-24 10:29 | disposition home or self-care (01) | DRG 897 ==
LOC: ER 23:47 → MS 23:51 → ICU 02-21 15:53 → MS 02-23 16:56
PROVIDERS: Surgery; Admitting Provider Surgery; Emergency Provider Physician Assistant; PCP Family Medicine; Visit Provider Surgery
DX: F10.231 Alcohol dependence with withdrawal delirium (principal); K86.0 Alcohol-induced chronic pancreatitis; R74.01 Elevation of levels of liver transaminase levels; E87.6 Hypokalemia; K52.9 Noninfective gastroenteritis and colitis, unspecified; F32.A Depression, unspecified; F11.11 Opioid abuse, in remission; K29.70 Gastritis, unspecified, without bleeding; G43.109 Migraine with aura, not intractable, without status migrainosus; Z59.00 Homelessness unspecified; K70.0 Alcoholic fatty liver; G89.29 Other chronic pain; M54.9 Dorsalgia, unspecified; F41.1 Generalized anxiety disorder; F17.210 Nicotine dependence, cigarettes, uncomplicated; Z78.1 Physical restraint status; R45.1 Restlessness and agitation; F19.10 Other psychoactive substance abuse, uncomplicated
CPT/HCPCS: 36415; 80048; 80053; 80076; 82805; 83690; 85027; 86704; 86709; 86803; 87340; 87635; 96361; 96365; 96366; 96375; 99285; 36600; 74177; 80184; 80329; 81003; 83735; 84100; 85025; 93005; 93010; G0378; J0780; J1885; J2405; J2560; J3480; J3490

== ENCOUNTER 2022-03-03 14:26 | Outpatient (REF) | payer MEDICAID, SELFPAY | END 2022-03-03 14:27 | disposition home or self-care (01) | LOC: LBN 14:26 | PROVIDERS: PCP Family Medicine; Visit Provider Family Medicine | DX: S90.512A Abrasion, left ankle, initial encounter; S90.511A Abrasion, right ankle, initial encounter; L08.89 Other specified local infections of the skin and subcutaneous tissue | CPT/HCPCS: 87077; 87070; 87186; 87205 ==

== ENCOUNTER 2022-06-03 10:38 | Inpatient (IN) | payer MEDICAID, SELFPAY ==
[2022-06-03] VITALS (58 sets, daily range): BP systolic 103–130; BP diastolic 62–103; PULSE 51–91; RESP 9–30; TEMP 36.9–37.7; O2SAT 66–100
[2022-06-03 11:06] LABS: HCT 44.7 % (40.0-50.0); HGB 15.5 g/dL (13.5-17.5); MCH 32.4 pg (27.0-33.0); MCHC 34.7 % (32.0-36.0); MCV 93 fL (80-95); Platelet Count 537 10^3/uL (130-400); RBC 4.79 10^6/uL (4.36-5.78); RDW 13.2 % (11.8-14.1); RDW-SD 45.3 fL; WBC 4.81 10^3/uL (4.4-10.8)
[2022-06-03] MEDS: Normal Saline 1,000 ML 1000 ML IV (11:08)
[2022-06-03 11:20] LABS: Absolute Basophil Count 0.05 10^3/uL (0.0-0.2); Absolute Lymphocyte Count 3.75 10^3/uL (1.2-3.4); Absolute Monocyte Count 0.34 10^3/uL (0.1-0.8); Absolute Neutrophil Count 0.67 10^3/uL (1.2-6.7); Atypical Lymphocytes % 13; Diff Comment Manual Differential; RBC Morphology Normal
[2022-06-03] MEDS: Ketamine 500 MG/10 ML VIAL 19 MG IVP (11:26)
[2022-06-03 11:27] LABS: ALT 106 U/L (16-63); AST 52 U/L (15-37); Albumin 4.1 g/dL (3.4-5.0); Alkaline Phosphatase 123 U/L (46-116); Anion Gap 13.4 mmol/L (3-11); BUN 3 mg/dL (7-18); Bilirubin, Total 0.2 mg/dL (0.2-1.0); CO2 25.6 mmol/L (21.0-32.0); CREATININE 0.8 mg/dL (0.70-1.30); Calcium 9.5 mg/dL (8.5-10.1); Chloride 100 mmol/L (98-107); Estimated GFR 115.45 (mL/min/1.73m2); Glucose 161 mg/dL (74-106); Lipase 14 U/L (73-393); Sodium 139 mmol/L (136-145); Total Protein 7.8 g/dL (6.4-8.2)
--- NOTE | 2022-06-03 11:28 | NUR.NOTE ---
Nursing Note: PT MEDICATED PER EMAR, MONITORS MAINTAINED, PT VISUALIZED FROM NURSING STAION, SR UP AND CALL BHAGAT WITHIN REACH. PT VERBALIZED UNDERSTANDING USE OF KETAMINE AND AGRESS, WILL ALERT STAFF NEEDED, CONT. TO MONITOR.
--- NOTE | 2022-06-03 11:58 | NUR.NOTE ---
Nursing Note: PT RESTING ON STRETCHER, AWAKE, REPORTS FEELING BETTER, MONITORS MAINTAINED.
--- NOTE | 2022-06-03 12:45 | DI.CT_ITS ---
Exam(s) CT ABDOMEN PELVIS W EXAM: CT ABDOMEN PELVIS W CLINICAL HISTORY: abdominal pain TECHNIQUE: COMPARISON: CT CT ABDOMEN PELVIS W from 02/20/2022 FINDINGS: CT examination of the abdomen and pelvis was performed with bolus infusion of 80 cc of Omnipaque 350. Images obtained through the lung bases are unremarkable. The liver appears normal with no evidence of a focal mass. Spleen is unremarkable in appearance.. Gallbladder and bile ducts are unremarkable. Note is again made of prominent coarse pancreatic calcifications and chronic dilatation of the pancre atic duct as noted on prior examinations. On today's examination, there is peripancreatic edema and possible small fluid collection adjacent to the pancreatic head. Additionally, there is wall thicken ing of the gastric antrum and the descending duodenum, these findings may be associated with localize d inflammatory process. Prominence of portal lymph nodes again noted .. Adrenals appear normal bilaterally. Kidneys: Note is made of a tiny nonobstructing left lower pole renal calculus. No other urinary trac t calcification seen. No evidence of hydronephrosis or renal mass. Unremarkable bladder. Apart from the aforementioned prominence of portal lymph nodes, there is no evidence of abdominal or pelvic adenopathy. Abdominal aorta is of normal diameter and no abnormality is seen involving major v isceral branches.. Appendix is normal. No evidence diverticulitis or bowel obstruction. No significant abdominal wall hernia seen. Impression: The appearance is consistent with chronic pancreatitis with superimposed acute pancreatitis. Appropr iate follow-up examinations are requested due to the presence of marked wall thickening of gastric an trum and duodenum, to exclude an underlying neoplastic process.. RADIATION DOSE DELIVERED: 570.87mGy.cm Total DLP 570.87mGy.cm Total DLP DATA REPOSITORY: All CT scans at this facility are submitted to the National Radiology Data Registry (NRDR) Dose Index Registry (DIR) with the [employer] (ACR). RADIATION OPTIMIZATION: All CT scans at this facility use at least one of these dose optimization te chniques: automated exposure control; mA and/or kV adjustment per patient size (includes targeted exa ms where dose is matched to clinical indication); or iterative reconstruction.
[2022-06-03] MEDS: ACETAMINOPHEN 1,000 MG/100 ML BTL 400 MG IVPB (13:48)
--- NOTE | 2022-06-03 13:49 | NUR.NOTE ---
Nursing Note: Vinnie, Pt Risk Assessment, in to see pt, to discusss alcohol treatment/rehab programs with pt per pt request, pt states I need help, I cant stop drinking on my own, pt assisted to call Jasiel Peralta during their visit, continue to monitor.
[2022-06-03] MEDS: Normal Saline - Diluent 50 ML VIAL IJ (14:55)
[2022-06-03] MEDS: Normal Saline Flush 10 ML SYR IVP ×2 (14:56→19:45)
[2022-06-03] MEDS: Omnipaque 350 MG/ML 100 ML BTL IJ (14:56)
--- NOTE | 2022-06-03 15:26 | W.ED.GENAD ---
Discharge Plan Disposition Patient Disposition: Admit to [facility] Condition: Serious Discharge Details Chief Complaint: Abd Prob Clinical Impression: Acute pancreatitis, Duodenal mass, Alcoholism Primary Care Provider: Joel Martinez ED Provider: Luis Hill Home Meds and New Rx's Prescriptions: No Action (DME) Tegaderm-Absorbent 3 inx3.75 in See Rx Instructions .Route .MEDSUPPLY Qty: 10 0RF Rx Instructions: As directed on both ankles, change every 3-5 days until healed gabapentin 800 mg tablet 800 mg PO TID Qty: 270 3RF buprenorphine-naloxone 8-2 mg film 1 film SL DAILY buprenorphine-naloxone [Suboxone] 12-3 mg film 1 film sublingual DAILY Rx Instructions: TAKES IN ADDITION TO 8MG FILM, BUT HASN'T HAD IN OVER A WEEK -SW 02/23/22 Medical Decision Making 37-year-old male with history of alcoholism, opioid use disorder, pancreatitis, here with severe abdominal pain that started yesterday. Patient continues to consume alcohol. Concern for acute pancreatitis. I reviewed CT of the abdomen pelvis from 02/20/2022 as interpreted by radiology: IMPRESSION: 1. The main acute appearing finding is a diffuse colitis pattern with circumferential edema like thickening of the entire colon.? No colonic distention.? No appendicitis.? No diverticulitis.? No free fluid.? No small bowel obstruction. 2. Numerous prominent parenchymal calcifications throughout the but again noted be most prominent confluent in the pancreatic head and uncinate process, this resulting in dilatation of the pancreatic duct to a diameter of 6 millimeters.? The CBD is not dilated.? However, there is a subtle suggestion of a possible mass on the medial wall of the duodenum adjacent to the insertional aspect of the CBD at this level.? Recommend endoscopy with direct visualization. 3. No radiopaque gallstones but the gallbladder wall does appears slightly edematous towards the fundus.? Recommend follow-up ultrasound. 4. Other findings as above. I do not believe patient has had work-up for mass noted on prior CT. Repeat CT of the abdomen pelvis to assess for acute surgical pathology including pancreatic abscess was performed today and interpreted by radiology: Impression: The appearance is consistent with chronic pancreatitis with superimposed acute pancreatitis.? Appropriate follow-up examinations are requested due to the presence of marked wall thickening of gastric antrum and duodenum, to exclude an underlying neoplastic process.. Patient was reassessed and continues to have pain. I will give Pepcid 20 mg IV. I have called the hospitalist and discussed case with Dr. Tavarez, he will admit the patient for IV fluid and analgesia. Lab Data Lab results reviewed: Yes I reviewed the patient's lab results. Labs: Laboratory Tests Range/Units 06/03/22 06/03/22 10:10 10:10 WBC (4.4-10.8) 10^3/uL 4.81 RBC (4.36-5.78) 10^6/uL 4.79 Hgb (13.5-17.5) g/dL 15.5 Hct (40.0-50.0) % 44.7 MCV (80-95) fL 93 MCH (27.0-33.0) pg 32.4 MCHC (32.0-36.0) % 34.7 RDW (11.8-14.1) % 13.2 Plt Count (130-400) 10^3/uL 537 H MPV (8.0-11.0) fL 9.0 Immature Gran % 0.0 Neutrophils % 14.0 Lymphocytes % 65.0 Atypical Lymphs % 13 Monocytes % 7.0 Eosinophils % 0.0 Basophils % 1.0 Nucleated RBC % (0.0-0.3) % 0.0 Absolute Neutrophils (1.2-6.7) 10^3/uL 0.67 L Absolute Lymphocytes (1.2-3.4) 10^3/uL 3.75 H Absolute Monocytes (0.1-0.8) 10^3/uL 0.34 Absolute Eosinophils (0.0-0.7) 10^3/uL 0.00 Absolute Basophils (0.0-0.2) 10^3/uL 0.05 RBC Morphology Normal Sodium (136-145) mmol/L 139 Potassium (3.5-5.1) mmol/L 4.0 Chloride (98-107) mmol/L 100 Carbon Dioxide (21.0-32.0) mmol/L 25.6 Anion Gap (3-11) mmol/L 13.4 H BUN (7-18) mg/dL 3 L Creatinine (0.70-1.30) mg/dL 0.8 Est GFR (CKD-EPI 2020) (mL/min/1.73m2) 115.45 Glucose (74-106) mg/dL 161 H Calcium (8.5-10.1) mg/dL 9.5 Total Bilirubin (0.2-1.0) mg/dL 0.2 AST (15-37) U/L 52 H ALT (16-63) U/L 106 H Alkaline Phosphatase (46-116) U/L 123 H Total Protein (6.4-8.2) g/dL 7.8 Albumin (3.4-5.0) g/dL 4.1 Lipase (73-393) U/L 14 Sign Out No HPI General Mode of arrival: EMS. Date/Time Provider Initiated Documentation: 06/03/22 10:42. Limitations to Documentation: no limitations. Information obtained by: patient. HPI Narrative: 37-year-old male with history of alcoholism, pancreatitis with recurrent episodes, here with chief complaint of severe abdominal pain. Patient notes severe constant mid to upper abdominal pain started yesterday morning and has persisted. Not able to eat anything. Patient notes he drank alcohol last night and tried to drink alcohol again this morning but was vomiting. Patient notes the pain is similar to prior flares of pancreatitis. Patient is quite upset and interested and seeking alcohol rehabilitation. Related Data Home Medications Medication Instructions Recorded Confirmed buprenorphine 8 mg-naloxone 2 mg 1 film sublingual DAILY 11/22/19 06/03/22 sublingual film buprenorphine 12 mg-naloxone 3 mg 1 film sublingual DAILY 02/23/22 02/23/22 sublingual film (Suboxone) Tegaderm-Absorbent #10 ea 03/03/22 03/03/22 gabapentin 800 mg tablet 800 mg PO TID #270 tabs 03/03/22 06/03/22 Previous Rx's Medication Instructions Recorded Tegaderm-Absorbent #10 ea 03/03/22 gabapentin 800 mg tablet 800 mg PO TID #270 tabs 03/03/22 Allergies Allergy/AdvReac Type Severity Reaction Status Date / Time No Known Allergies Allergy Verified 06/03/22 10:47 General Stated Complaint: Abd Prob KAVEH: 3 Review of Systems All systems reviewed & are unremarkable except as noted in HPI and below Constitutional Constitutional: Denies fever(s) Gastrointestinal Gastrointestinal: Reports as per HPI, Reports abdominal pain, Reports nausea and Reports vomiting PFSH All Active Problems (Updated 06/03/22 @ 15:43 by Luis Hill MD) Acute pancreatitis (Acute) Duodenal mass (Acute) Alcoholism (Acute) Infected abrasion of skin of right ankle (Acute) Infected abrasion of skin of left ankle (Acute) Agitation (Acute) Polysubstance use disorder (Acute) Transaminitis (Acute) Contusion of right knee (Acute) Lyme disease (Acute) Abrasion (Acute) Trauma (Acute) Inflammatory arthritis (Acute) Alcoholic ketoacidosis (Acute) Vomiting (Acute) Abdominal pain (Acute) Alcoholic ketoacidosis (Acute) Abdominal pain with vomiting (Acute) Depression with anxiety (Acute) Family history of schizophrenia (Chronic) Father Migraine with aura (Acute) Homeless (Acute) Colitis (Acute) Alcoholic fatty liver (Acute) Nausea and vomiting (Acute) Hypoglycemia (Acute) Severe depression (Chronic) Delirium (Acute) Alcohol abuse (Chronic) Heroin abuse (Chronic) Elevated transaminase level (Acute) Chronic back pain (Chronic) Anxiety, generalized (Chronic) Medical History Depression History of alcohol abuse Opiate addiction Surgical History No significant past surgical history Family History Mother Heart disease Asthma Father No problems noted. Sister Asthma Sister No problems noted. Brother No problems noted. Grandfather Essential hypertension Heart disease Asthma Grandfather Essential hypertension Heart disease Grandmother No problems noted. Grandmother No problems noted. Son No problems noted. Daughter No problems noted. Daughter Asthma Social History Smoking/Tobacco Use Status: Current every day Tobacco Type: cigarettes Smoking risk assessment performed?: Yes Alcohol Intake: current Alcohol Intake frequency: 0-2 drinks per day Alcohol type: beer and hard liquor Counseling provided: other Drug use: Daily Substance use type: marijuana and methamphetamine Details: States has used some oxycotin from his doctor, denies heroin use. past IV drug user. on MAT program now Housing: apartment Number of Children: 3 What type of physical activity do you participate in: none Drive intox or ride w/intox dedicated regional driver: No Working smoke detector in home: Yes Carbon monox detector in home: Yes Do you feel safe at home: Yes Do you feel safe in your relationship?: Yes Exam Const General: cooperative [facility] Mouth: mucous membranes dry Eyes Conjunctivae: normal conjunctivae Sclera: normal sclerae EOM: EOM intact bilaterally Neck Neck: trachea midline and supple Resp Auscultation: clear to auscultation bilaterally, no rales, no rhonchi and no wheezes Cardio Rate: regular rate Rhythm: regular rhythm GI Palpation: soft, not firm, no guarding, no masses and not rigid Skin General skin exam: no rashes or lesions noted Neuro General: patient alert, patient awake and tone normal Extrem General: no edema Psych Appearance: grossly normal Mental Status: mental status grossly normal Affect: anxious affect Course Vital Signs Vital signs: Vital Signs Temperature 36.9 C 06/03/22 10:43 Pulse 86 06/03/22 10:43 Respiratory Rate 18 06/03/22 10:43 Blood Pressure 128/103 H 06/03/22 10:43 Pulse Oximetry 99 06/03/22 10:43 Temperature 36.9 C 06/03/22 10:43 Temperature Source Oral 06/03/22 10:43 Pulse 77 06/03/22 13:31 Pulse 86 06/03/22 13:20 Respiratory Rate 18 06/03/22 13:20 Respiratory Effort 06/03/22 10:45 Blood Pressure 124/90 06/03/22 13:31 Blood Pressure Mean 98 06/03/22 13:31 Blood Pressure Position Sitting 06/03/22 10:43 Pulse Oximetry 99 06/03/22 13:32 Oxygen Delivery Method Room Air 06/03/22 10:43 Oxygen Flow Rate 0 06/03/22 10:43 Pain Level 8 06/03/22 10:43 Lab/Test Results Lab/Test Results: Laboratory Tests Range/Units 06/03/22 06/03/22 10:10 10:10 WBC (4.4-10.8) 10^3/uL 4.81 RBC (4.36-5.78) 10^6/uL 4.79 Hgb (13.5-17.5) g/dL 15.5 Hct (40.0-50.0) % 44.7 MCV (80-95) fL 93 MCH (27.0-33.0) pg 32.4 MCHC (32.0-36.0) % 34.7 RDW (11.8-14.1) % 13.2 Plt Count (130-400) 10^3/uL 537 H MPV (8.0-11.0) fL 9.0 Immature Gran % 0.0 Neutrophils % 14.0 Lymphocytes % 65.0 Atypical Lymphs % 13 Monocytes % 7.0 Eosinophils % 0.0 Basophils % 1.0 Nucleated RBC % (0.0-0.3) % 0.0 Absolute Neutrophils (1.2-6.7) 10^3/uL 0.67 L Absolute Lymphocytes (1.2-3.4) 10^3/uL 3.75 H Absolute Monocytes (0.1-0.8) 10^3/uL 0.34 Absolute Eosinophils (0.0-0.7) 10^3/uL 0.00 Absolute Basophils (0.0-0.2) 10^3/uL 0.05 RBC Morphology Normal Sodium (136-145) mmol/L 139 Potassium (3.5-5.1) mmol/L 4.0 Chloride (98-107) mmol/L 100 Carbon Dioxide (21.0-32.0) mmol/L 25.6 Anion Gap (3-11) mmol/L 13.4 H BUN (7-18) mg/dL 3 L Creatinine (0.70-1.30) mg/dL 0.8 Est GFR (CKD-EPI 2020) (mL/min/1.73m2) 115.45 Glucose (74-106) mg/dL 161 H Calcium (8.5-10.1) mg/dL 9.5 Total Bilirubin (0.2-1.0) mg/dL 0.2 AST (15-37) U/L 52 H ALT (16-63) U/L 106 H Alkaline Phosphatase (46-116) U/L 123 H Total Protein (6.4-8.2) g/dL 7.8 Albumin (3.4-5.0) g/dL 4.1 Lipase (73-393) U/L 14 PAWSS Have you Been Recently Intoxicated or Drunk Within the Last 30 days?: Yes Have you Ever Experienced Previous Episodes of Alcohol Withdrawal?: Yes Have you ever Experienced Withdrawal Seizures?: Yes Have you ever Experienced Delirium Tremens(DT)s?: Yes Have you ever undergone Alcohol Rehabilitation Treatment (i.e, inpt ot outpatient treatment programs)?: No Have you ever Experienced Blackouts?: Yes Have you ever Combined Alcohol with other Downers within the last 90 days?: No Have you ever Combined Alcohol with any other Substance of Abuse during the last 90 days?: No Positive Blood Alcohol level on Presentation? [PCS.BAL]: No Evidence of Increased Autonomic Activity (i.e. HR>120, tremor, sweating, agitation, nausea)?: No Result: 5
[2022-06-03] MEDS: Famotidine 20 MG/2 ML VIAL IVP (15:29)
[2022-06-03 15:59] LABS: Source Nasal/Nares
[2022-06-03 16:39] LABS: COVID-19 PCR POSITIVE (Negative)
[2022-06-03] MEDS: PHENobarbital 150 MG in Normal Saline 50 ML 100 MG IVPB (18:12)
--- NOTE | 2022-06-03 18:40 | HPE_ITS ---
Date of service: 06/03/22 Time of Service: 18:40 Assessment and Plan Assessment and plan (1) Acute pancreatitis: Status: Acute Assessment and plan: Acute on chronic. Lipase normal but imaging and clinical picture are of acute on chronic pancreatitis. NPO with sips and ice chips. Acetaminophen given in ED. Cont his buprenorphine. PRN toradol with max of 2 doses at this time; re-evaluate if he requires these and they are helpful. Aware of potential bleeding risk when used with lovenox. (2) Duodenal mass: Status: Acute Assessment and plan: F/U for further evaluation as outpt. (3) Polysubstance use disorder: Status: Acute Assessment and plan: Cont buprenorphine. (4) Alcoholic fatty liver: Status: Acute Assessment and plan: Mild LFT elevations. (5) Alcohol withdrawal: Status: Acute Assessment and plan: CIWA protocol with phenobarbitol. Soft and hard stops calculated by pharmacy. Will add clonidine 0.2 mg po TID. History of Present Illness History of Present Illness Chief Complaint: Abdominal pain Narrative: This is a 37 yo male with a PMH of chronic pancreatitis, alcohol use disorder, polysubstance use disorder, hepatic steatosis, depression and anxiety. He presented to the ED with c/o severe abdominal pain. The location of the pain was in the mid to upper adb and was described as constant. Onset was the day before presentation. He did endorse drinking alcohol the night before presentation but did not eat the day before. He feels the pain is similar to previous pain from pancreatitis. He was admitted on 02/21/22 to the surgery service with similar complaints. He underwent alcohol withdrawal on a phenobarbitol protocol. Precedex was administered initially during the course of his withdrawal. He was then started on clonidine and seroquel. Lab upon presentation for this admission showed a normal WBC count and Hgb. Platelets 537. Lytes normal. Mildly elevated anion gap of 13.4. Creatinine 0.8. AST 52. ALT 106. CT abd/pelvis: appearance is consistent with chronic pancreatitis with superimposed acute pancreatitis.? Appropriate follow-up examinations are requested due to the presence of marked wall thickening of gastric antrum and duodenum, to exclude an underlying neoplastic process. This later process was noted on previous scan as well. He did have a CIWA score in the ED of 14. Phenobarbitol withdrawal protocol initiated. Review of Systems All systems reviewed & are unremarkable except as noted in HPI and below PFSH All Active Problems (Updated 06/03/22 @ 18:49 by Selvin Tavarez MD) Alcohol withdrawal (Acute) Acute pancreatitis (Acute) Duodenal mass (Acute) Alcoholism (Acute) Infected abrasion of skin of right ankle (Acute) Infected abrasion of skin of left ankle (Acute) Agitation (Acute) Polysubstance use disorder (Acute) Transaminitis (Acute) Contusion of right knee (Acute) Lyme disease (Acute) Abrasion (Acute) Trauma (Acute) Inflammatory arthritis (Acute) Alcoholic ketoacidosis (Acute) Vomiting (Acute) Abdominal pain (Acute) Alcoholic ketoacidosis (Acute) Abdominal pain with vomiting (Acute) Depression with anxiety (Acute) Family history of schizophrenia (Chronic) Father Migraine with aura (Acute) Homeless (Acute) Colitis (Acute) Alcoholic fatty liver (Acute) Nausea and vomiting (Acute) Hypoglycemia (Acute) Severe depression (Chronic) Delirium (Acute) Alcohol abuse (Chronic) Heroin abuse (Chronic) Elevated transaminase level (Acute) Chronic back pain (Chronic) Anxiety, generalized (Chronic) Medical History Depression History of alcohol abuse Opiate addiction Surgical History No significant past surgical history Family History Mother Heart disease Asthma Father No problems noted. Sister Asthma Sister No problems noted. Brother No problems noted. Grandfather Essential hypertension Heart disease Asthma Grandfather Essential hypertension Heart disease Grandmother No problems noted. Grandmother No problems noted. Son No problems noted. Daughter No problems noted. Daughter Asthma Social History Smoking/Tobacco Use Status: Current every day Tobacco Type: cigarettes Smoking risk assessment performed?: Yes Alcohol Intake: current Alcohol Intake frequency: 0-2 drinks per day Alcohol type: beer and hard liquor Counseling provided: other Drug use: Never Substance use type: marijuana and methamphetamine Details: States has used some oxycotin from his doctor, denies heroin use. past IV drug user. 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: No Working smoke detector in home: Yes Carbon monox detector in home: Yes Do you feel safe at home: Yes Do you feel safe in your relationship?: Yes Meds Allergies and Home Medications Allergies Allergy/AdvReac Type Severity Reaction Status Date / Time No Known Allergies Allergy Verified 06/03/22 10:47 Home Medications Medication Instructions Recorded Confirmed Type buprenorphine 8 mg-naloxone 2 mg 1 film sublingual DAILY 11/22/19 06/03/22 History sublingual film buprenorphine 12 mg-naloxone 3 mg 1 film sublingual DAILY 02/23/22 02/23/22 History sublingual film (Suboxone) Tegaderm-Absorbent #10 ea 03/03/22 03/03/22 Rx gabapentin 800 mg tablet 800 mg PO TID #270 tabs 03/03/22 06/03/22 Rx Exam Const General: cooperative and no acute distress Nutritional Appearance: thin Orientation: alert and oriented x3 Eyes General: appearance normal, both eyes and all related structures Sclera: sclerae normal Neck Neck: full ROM and no JVD Resp Effort & Inspection: normal respiratory effort and able to speak in complete sentences Auscultation: clear to auscultation bilaterally Cardio Rate: regular rate Rhythm: regular rhythm Heart Sounds: S1 normal and S2 normal GI Inspection: non-distended Palpation: soft and tender in the epigastrum and in the LUQ Auscultation: normal bowel sounds Skin General skin exam: no rashes or lesions noted Neuro General: no focal motor deficits Cranial Nerves: facial strength normal Cognition: normal cognition Speech: speech normal Extrem General: no pedal edema and no calf tenderness Psych Appearance: grossly normal Mood: congruent mood Affect: normal affect Results Labs Result diagrams: 06/03/22 10:10 06/03/22 10:10 Labs: Laboratory Results - last 24 hr 06/03/22 06/03/22 06/03/22 10:10 10:10 15:56 WBC 4.81 RBC 4.79 Hgb 15.5 Hct 44.7 MCV 93 MCH 32.4 MCHC 34.7 RDW 13.2 Plt Count 537 H MPV 9.0 Immature Gran % 0.0 Neutrophils % 14.0 Lymphocytes % 65.0 Atypical Lymphs % 13 Monocytes % 7.0 Eosinophils % 0.0 Basophils % 1.0 Nucleated RBC % 0.0 Absolute Neutrophils 0.67 L Absolute Lymphocytes 3.75 H Absolute Monocytes 0.34 Absolute Eosinophils 0.00 Absolute Basophils 0.05 RBC Morphology Normal Sodium 139 Potassium 4.0 Chloride 100 Carbon Dioxide 25.6 Anion Gap 13.4 H BUN 3 L Creatinine 0.8 Est GFR (CKD-EPI 2020) 115.45 Glucose 161 H Calcium 9.5 Total Bilirubin 0.2 AST 52 H ALT 106 H Alkaline Phosphatase 123 H Total Protein 7.8 Albumin 4.1 Lipase 14 COVID-19 Source Nasal/Nares SARS-CoV-2 (PCR) POSITIVE A* Last Vital Signs Temp 36.9 C 06/03/22 10:43 Pulse 83 06/03/22 14:31 Resp 18 06/03/22 13:20 BP 115/78 06/03/22 14:31 Pulse Ox 99 06/03/22 13:32 PAWSS Have you Been Recently Intoxicated or Drunk Within the Last 30 days?: Yes Have you Ever Experienced Previous Episodes of Alcohol Withdrawal?: Yes Have you ever Experienced Withdrawal Seizures?: Yes Have you ever Experienced Delirium Tremens(DT)s?: Yes Have you ever undergone Alcohol Rehabilitation Treatment (i.e, inpt ot outpatient treatment programs)?: No Have you ever Experienced Blackouts?: Yes Have you ever Combined Alcohol with other Downers within the last 90 days?: No Have you ever Combined Alcohol with any other Substance of Abuse during the last 90 days?: No Positive Blood Alcohol level on Presentation? [PCS.BAL]: No Evidence of Increased Autonomic Activity (i.e. HR>120, tremor, sweating, agitation, nausea)?: No Result: 5
[2022-06-03] MEDS: REMDESIVIR 200 MG in Normal Saline 250 ML 250 MG IVPB (18:42)
[2022-06-03 19:42] LABS: ETHANOL BLOOD 168.9 mg/dL (<10)
[2022-06-03] MEDS: cloNIDine 0.1 MG TAB 0.2 MG PO (19:45)
[2022-06-03] MEDS: Ketorolac 30 MG/ML VIAL IVP (19:45)
[2022-06-03] MEDS: Gabapentin 800 MG TAB PO (19:45)
[2022-06-03] MEDS: Enoxaparin 40 MG/0.4 ML SYR SC (19:46)
[2022-06-03] MEDS: HYDROmorphone 2 MG/ML SYR 1 MG IVP (20:40)
[2022-06-03] MEDS: PHENobarbital 110 MG in Normal Saline 50 ML 100 MG IVPB (20:44)
[2022-06-04] VITALS (106 sets, daily range): BP systolic 92–128; BP diastolic 58–88; PULSE 44–91; RESP 9–21; TEMP 35.6–37.6; O2SAT 90–100
[2022-06-04] MEDS: PHENobarbital 110 MG in Normal Saline 50 ML 100 MG IVPB (00:17)
[2022-06-04] MEDS: HYDROmorphone 2 MG/ML SYR 1 MG IVP ×2 (04:17→23:59)
[2022-06-04 06:47] LABS: HCT 42.6 % (40.0-50.0); HGB 14.3 g/dL (13.5-17.5); MCH 33.3 pg (27.0-33.0); MCHC 33.6 % (32.0-36.0); MCV 99 fL (80-95); RDW 13.4 % (11.8-14.1); RDW-SD 48.6 fL; WBC 6.83 10^3/uL (4.4-10.8)
[2022-06-04] MEDS: Gabapentin 800 MG TAB PO ×3 (08:57→19:37)
[2022-06-04] MEDS: Thiamine 100 MG TAB PO (08:57)
[2022-06-04] MEDS: Buprenorphine/Naloxone 8 mg/2 mg FILM 1 EACH SL (08:57)
[2022-06-04] MEDS: cloNIDine 0.1 MG TAB 0.2 MG PO ×3 (08:57→19:38)
[2022-06-04] MEDS: Multivitamin TAB 1 TAB PO (08:57)
[2022-06-04] MEDS: Folic Acid 1 MG TAB PO (08:57)
[2022-06-04] MEDS: PHENobarbital 130 MG/ML VIAL IVP ×4 (09:23→23:46)
[2022-06-04] MEDS: Normal Saline Flush 10 ML SYR IVP ×2 (09:24→10:20)
--- NOTE | 2022-06-04 10:03 | INITIAL_ITS ---
- If Service Date Differs Date of service: 06/04/22 Time of Service: 10:03 Care Management Initial Assess REASON FOR HOSPITALIZATION:: Acute pancreatitis PAST MEDICAL HISTORY/PAST SURGICAL HISTORY:: All Active Problems (Updated 06/03/22 @ 18:49 by Selvin Tavarez MD). Alcohol withdrawal (Acute). Acute pancreatitis (Acute). Duodenal mass (Acute). Alcoholism (Acute). Infected abrasion of skin of right ankle (Acute). Infected abrasion of skin of left ankle (Acute). Agitation (Acute). Polysubstance use disorder (Acute). Transaminitis (Acute). Contusion of right knee (Acute). Lyme disease (Acute). Abrasion (Acute). Trauma (Acute). Inflammatory arthritis (Acute). Alcoholic ketoacidosis (Acute). Vomiting (Acute). Abdominal pain (Acute). Alcoholic ketoacidosis (Acute). Abdominal pain with vomiting (Acute). Depression with anxiety (Acute). Family history of schizophrenia (Chronic). Father. Migraine with aura (Acute). Homeless (Acute). Colitis (Acute). Alcoholic fatty liver (Acute). Nausea and vomiting (Acute). Hypoglycemia (Acute). Severe depression (Chronic). Delirium (Acute). Alcohol abuse (Chronic). Heroin abuse (Chronic). Elevated transaminase level (Acute). Chronic back pain (Chronic). Anxiety, generalized (Chronic). Medical History . Depression. History of alcohol abuse. Opiate addiction. Surgical History . No significant past surgical history PREVIOUS FUNCTIONAL STATUS/SOCIAL/FAMILY SUPPORTS:: Jose has a long history of mental health, substance use and relationship issues. He is attached to [employer] and has found support with [employer] for housing in the past. He was living in a house in [facility] and is independent with ADLs. CURRENT FUNCTIONAL STATUS:: CANDICE was unable to meet with Jose as he is on Covid precautions . He is also on a [facility] phenobarbital protocol and has been scoring between 2 and 12. He is afebrile and his vital signs are stable. ADVANCE DIRECTIVES:: none on file Has patient been provided with info about the portal/API?: Yes Did the patient sign up for the portal?: No CODE STATUS:: Full Code INSURANCE COVERAGE / FINANCIAL ISSUES:: Medicaid PRIMARY CARE PHYSICIAN:: Joel Martinez POTENTIAL DISCHARGE NEEDS:: follow up with PCP and plan of care. Jose would likely benefit from substance use treatment but unknown if he would be amenable to the idea. PATIENT/FAMILY EDUCATION NEEDS:: Follow up with PCP and plan of care TRANSPORTATION:: via priavte vehicle with family/friend PLAN:: Anticipate Jose Alfredo will be discharged home with no new services. He will follow up with his PCP and plan of care and transport with a friend. CM will support Jose Alfredo and assess for discharge needs.
[2022-06-04] MEDS: Ketorolac 30 MG/ML VIAL IVP (10:35)
[2022-06-04 12:06] LABS: *AMPHETAMINES SCREEN URINE Negative (Negative); *BARBITURATES SCREEN URINE Positive (Negative); *BENZODIAZEPINES SCREEN URINE Negative (Negative); Cannabinoids THC Positive (Negative); Cocaine Screen,Urine Negative (Negative); METHADONE URINE SCREEN Negative (Negative); OPIATES URINE SCREEN Positive (Negative)
[2022-06-04 12:07] LABS: Tricyclic Antidepressants Negative (Negative)
--- NOTE | 2022-06-04 13:36 | W.PM.PROGNOT ---
Date of Service Date of service: 06/04/22 Time of Service: 13:36 Assessment and Plan Assessment and plan (1) Acute pancreatitis: Status: Acute Assessment and plan: Acute on chronic. Lipase normal but imaging and clinical picture are of acute on chronic pancreatitis. tolerating feedings continue prn ketorolac I think that if he does not escalate later today on his alcohol withdrawal then he could move out of ICU to med/surg. I told him that when his pain is controlled and we are sure that he is tolerating his diet then he could return home. Professional time spent interviewing and examining patient, discussion of goals of care with hospital team (care management, nursing and consulting professionals) was 30 minutes. (2) Duodenal mass: Status: Acute Assessment and plan: F/U for further evaluation as outpt. (3) COVID-19: Status: Acute Assessment and plan: positive testing on admission. not vaccinated. He does not recall any exposures. Currently receiving Remdesivir as he is felt to be higher risk for deterioration however, so far no real symptoms and his oxygen status has been fine. 99% SPO2 on RA. (4) Polysubstance use disorder: Status: Acute Assessment and plan: Cont buprenorphine. (5) Alcoholic fatty liver: Status: Acute Assessment and plan: Mild LFT elevations. (6) Alcohol withdrawal: Status: Acute Assessment and plan: CIWA protocol with phenobarbitol. Soft and hard stops calculated by pharmacy. Will add clonidine 0.2 mg po TID. Subjective Subjective Interval history since last seen: Patient admitted w/ acute alcohol withdrawal and chronic pancreatitis. Lipase was normal. transaminases mildly elevated. Patient was begun on phenobarbital protocol and had 710 mg so far. His calculated soft stop of 15 mg/kg is 960mg and his hard stop of 20 mg/kg is 1280 mg. After being medicated w/ phenobarbital and ketorolac for his abdominal pains, he is much better this afternoon. He tolerated some lunch. Exam Narrative Exam Narrative: Alert and oriented x 3, cooperative and pleasant Lungs: clear Heart: RRR, no murmur Abdomen: soft, minimal tenderness to palpation; normal bowel sounds, no guarding Objective Last Vital Signs Temp 36 C L 06/04/22 04:36 Pulse 76 06/04/22 09:10 Resp 16 06/04/22 11:00 BP 111/65 06/04/22 09:10 Pulse Ox 99 12/08/22 11:00 Laboratory Results - last 24 hr 06/03/22 06/03/22 06/04/22 10:10 15:56 06:00 WBC 6.83 RBC 4.30 L Hgb 14.3 Hct 42.6 MCV 99 H D MCH 33.3 H MCHC 33.6 RDW 13.4 Plt Count MPV Urine Opiates Screen Urine Methadone Screen Ur Barbiturates Screen Ur Tricyclics Screen Ur Amphetamines Screen U Benzodiazepines Scrn Urine Cocaine Screen Ur THC Screen Ethyl Alcohol 168.9 H COVID-19 Source Nasal/Nares SARS-CoV-2 (PCR) POSITIVE A* 06/04/22 10:30 WBC RBC Hgb Hct MCV MCH MCHC RDW Plt Count MPV Urine Opiates Screen Positive A Urine Methadone Screen Negative Ur Barbiturates Screen Positive A Ur Tricyclics Screen Negative Ur Amphetamines Screen Negative U Benzodiazepines Scrn Negative Urine Cocaine Screen Negative Ur THC Screen Positive A Ethyl Alcohol COVID-19 Source SARS-CoV-2 (PCR) PAWSS Have you Been Recently Intoxicated or Drunk Within the Last 30 days?: Yes Have you Ever Experienced Previous Episodes of Alcohol Withdrawal?: Yes Have you ever Experienced Withdrawal Seizures?: Yes Have you ever Experienced Delirium Tremens(DT)s?: Yes Have you ever undergone Alcohol Rehabilitation Treatment (i.e, inpt ot outpatient treatment programs)?: Yes Have you ever Experienced Blackouts?: No Have you ever Combined Alcohol with other Downers within the last 90 days?: Yes Have you ever Combined Alcohol with any other Substance of Abuse during the last 90 days?: No Positive Blood Alcohol level on Presentation? [PCS.BAL]: Yes Evidence of Increased Autonomic Activity (i.e. HR>120, tremor, sweating, agitation, nausea)?: No Result: 6
[2022-06-04] MEDS: Pantoprazole 40 MG TABCR PO (14:34)
[2022-06-04] MEDS: REMDESIVIR 100 MG in Normal Saline 250 ML 250 MG IVPB (18:10)
[2022-06-05] VITALS: PULSE 45
[2022-06-05] MEDS: PHENobarbital 130 MG/ML VIAL IVP (00:36)
[2022-06-05 01:37] VITALS: PULSE 56; RESP 16
[2022-06-05] MEDS: Ketorolac 15 MG/ML VIAL IVP ×2 (04:50→13:48)
[2022-06-05] MEDS: Normal Saline Flush 10 ML SYR IVP ×3 (04:53→13:48)
[2022-06-05 06:59] LABS: Absolute Monocyte Count 0.49 10^3/uL (0.1-0.8); HCT 37.1 % (40.0-50.0); HGB 12.7 g/dL (13.5-17.5); MCH 32.9 pg (27.0-33.0); MCHC 34.2 % (32.0-36.0); MCV 96 fL (80-95); MPV 9.6 fL (8.0-11.0); Platelet Count 411 10^3/uL (130-400); RBC 3.86 10^6/uL (4.36-5.78); RDW 12.9 % (11.8-14.1); RDW-SD 45.3 fL; WBC 6.08 10^3/uL (4.4-10.8)
[2022-06-05 07:00] VITALS: PULSE 73
[2022-06-05 07:17] VITALS: BP 101/65; PULSE 63; RESP 16; TEMP 36.1; O2SAT 99
[2022-06-05 07:18] LABS: ALT 78 U/L (16-63); AST 54 U/L (15-37); Albumin 3.1 g/dL (3.4-5.0); Alkaline Phosphatase 103 U/L (46-116); Anion Gap 7.8 mmol/L (3-11); BUN 10 mg/dL (7-18); Bilirubin, Total 0.2 mg/dL (0.2-1.0); CO2 26.2 mmol/L (21.0-32.0); CREATININE 0.8 mg/dL (0.70-1.30); Calcium 8.5 mg/dL (8.5-10.1); Chloride 104 mmol/L (98-107); Estimated GFR 115.45 (mL/min/1.73m2); Glucose 100 mg/dL (74-106); LDH 158 U/L (85-227); Potassium 3.6 mmol/L (3.5-5.1); Sodium 138 mmol/L (136-145); Total Protein 6.2 g/dL (6.4-8.2)
[2022-06-05 07:26] LABS: Absolute Lymphocyte Count 3.83 10^3/uL (1.2-3.4); Atypical Lymphocytes % 7
[2022-06-05 07:27] LABS: Absolute Basophil Count 0.06 10^3/uL (0.0-0.2); Diff Comment Manual Differential; RBC Morphology Normal
[2022-06-05 07:53] LABS: D-Dimer 518 ng/mlFEU (<500)
[2022-06-05] MEDS: Pantoprazole 40 MG TABCR PO (09:32)
[2022-06-05] MEDS: Gabapentin 800 MG TAB PO ×2 (09:32→13:47)
[2022-06-05] MEDS: Multivitamin TAB 1 TAB PO (09:32)
[2022-06-05] MEDS: Buprenorphine/Naloxone 8 mg/2 mg FILM 1 EACH SL (09:33)
[2022-06-05] MEDS: Folic Acid 1 MG TAB PO (09:33)
[2022-06-05] MEDS: cloNIDine 0.1 MG TAB 0.2 MG PO ×2 (09:33→13:47)
[2022-06-05] MEDS: Thiamine 100 MG TAB PO (09:33)
[2022-06-05 11:33] VITALS: BP 119/68; PULSE 71; RESP 18; TEMP 37; O2SAT 99
--- NOTE | 2022-06-05 12:39 | CMPROGNOTE_ITS ---
- If Service Date Differs Date of service: 06/05/22 Time of Service: 12:39 Care Management Progress Note S/O: Jose remains inpatient, CM connected with Wrapping Checker Mirella who reported meeting with Jose on admission and providing contact information and advised he has a scheduled intake interview with Kellee Kong on Wednesday. No change to overall plan, CM continues to follow. A: 37 year old male admitted to [facility] 06/03/22 for chronic pancreatitis, intractable abdominal pain P: Jose Alfredo will be discharged home with no new services, he met with a recovery collector and has a phone interview with Kellee Kong on Wednesday. He will follow up with his PCP and plan of care and transport with a friend. CM will support Jose Alfredo and assess for discharge needs.
[2022-06-05 14:39] VITALS: BP 123/74; PULSE 51; RESP 18; TEMP 36.8; O2SAT 97
--- NOTE | 2022-06-05 16:55 | DSE_ITS ---
Date of service: 06/05/22 Time of Service: 15:50 DS: Diagnosis Discharge Diagnosis (1) Acute pancreatitis: Status: Acute (2) Duodenal mass: Status: Acute (3) COVID-19: Status: Acute (4) Polysubstance use disorder: Status: Acute (5) Alcoholic fatty liver: Status: Acute (6) Alcohol withdrawal: Status: Acute Discharge Plan Disposition Patient Disposition: Against Medical Advise Condition: Improving Discharge Details Reason For Visit: Chronic Pancreatitis, Intractable Abdominal Pain Admit Date/Time: 06/03/22 15:43 Admit Provider: Selvin Tavarez Attending Provider: Selvin Tavarez Primary Care Provider: Joel Martinez [facility] Course Hospital Course: This is a 37 yo male with a PMH of chronic pancreatitis, alcohol use disorder, polysubstance use disorder, hepatic steatosis, depression and anxiety.? He presented to the ED with c/o severe abdominal pain. The location of the pain was in the mid to upper adb and was described as constant.? Onset was the day before presentation.? He did endorse drinking alcohol the night before presentation but did not eat the day before.? He feels the pain is similar to previous pain from pancreatitis. He was previously admitted on 02/21/22 to the surgery service with similar complaints.? He underwent alcohol withdrawal on a phenobarbitol protocol.? Precedex was administered initially during the course of his withdrawal.? He was then started on clonidine and seroquel. Lab upon presentation for this admission showed a normal WBC count and Hgb. Platelets 537. Lytes normal.? Mildly elevated anion gap of 13.4. Creatinine 0.8. AST 52. ALT 106. CT abd/pelvis:?appearance is consistent with chronic pancreatitis with superimposed acute pancreatitis.? Appropriate follow-up examinations are requested due to the presence of marked wall thickening of gastric antrum and duodenum, to exclude an underlying neoplastic process.? This later process was noted on previous scan as well. He did have a CIWA score in the ED of 14.? Phenobarbitol withdrawal protocol initiated. Patient had 710 mg of Phenobarbital so far. His calculated soft stop of 15 mg/kg is 960mg and his hard stop of 20 mg/kg is 1280 mg. After being medicated w/ phenobarbital and ketorolac for his abdominal pains, he was much better on day 2 of hospitalization and ate some solid food without issue. Today @ 1550 he rang for the nurse, announced he had a family emergency and had to leave. The nurse did take his IV out. He left prior to being seen by a provider, which would have been against medical advice had there been a converstation. Dr Lazcano aware. Home Meds and New Rx's Prescriptions: No Action (DME) Tegaderm-Absorbent 3 inx3.75 in See Rx Instructions .Route .MEDSUPPLY Qty: 10 0RF Rx Instructions: As directed on both ankles, change every 3-5 days until healed gabapentin 800 mg tablet 800 mg PO TID Qty: 270 3RF buprenorphine-naloxone 8-2 mg film 1 film SL DAILY buprenorphine-naloxone [Suboxone] 12-3 mg film 1 film sublingual DAILY Rx Instructions: TAKES IN ADDITION TO 8MG FILM, BUT HASN'T HAD IN OVER A WEEK -SW 02/23/22 Discharge Orders Discharge Orders: Discharge Order (Routine); Ordered 06/05/22 Ordered By: Yashira Groves Discharge Data Discharge Date/Time-TO BE ENTERED AT DEPARTURE: 06/05/22 15:51 DS: Summary Time Spent with Patient providing and/or coordinating discharge services: Less than 30 minutes Status at Discharge Functional status at discharge: independent ambulation Overall status at discharge: patient is progressing back to baseline Mental Status: mental status grossly normal Speech and Movement: speech and movement normal Mood: congruent mood Affect: normal affect Exam Psych Mental Status: mental status grossly normal Speech and Movement: speech and movement normal Mood: congruent mood Affect: normal affect DS: Data Vitals/I&O Vitals and I&O: Vital Signs Temperature 36.8 C 06/05/22 14:39 Temperature Source Tympanic 06/05/22 14:39 Pulse 51 L 06/05/22 14:39 Pulse Rhythm Regular 06/05/22 12:00 Pulse 68 06/04/22 14:50 Respiratory Rate 18 06/05/22 14:39 Respiratory Effort Non-Labored 06/05/22 12:00 Respiratory Depth Normal 06/05/22 12:00 Respiratory Pattern Normal 06/05/22 12:00 Blood Pressure 123/74 06/05/22 14:39 Blood Pressure Mean 86 06/04/22 14:38 Blood Pressure Position Sitting 06/04/22 09:00 Pulse Oximetry 97 06/05/22 14:39 Oxygen Delivery Method Room Air 06/05/22 14:39 Oxygen Flow Rate 0 06/05/22 14:39 Pain Level 8 06/05/22 13:48 Comment 06/05/22 01:37 Intake & Output 06/04/22 06/05/22 06/05/22 23:59 11:59 23:59 Intake Total 610 / 1060.8462 510 / 510 Output Total 120 / 320 1600 / 1600 Balance 490 / 740.8462 -1090 / -1090 Intake: IV 250 / 300.8462 Oral 360 / 760 510 / 510 Output: Urine 120 / 320 1600 / 1600 Other: Urine Color Light Norma Yellow Urine Appearance Clear Clear Clear Urine Odor None Normal Comment using urinal at bedside pT voids independently. Stool Size Moderate Stool Characteristics Soft Formed Green Voiding Methods Toilet Data Completed and Pending Labs on day of discharge: Labs from last 24 hours 06/05/22 06/05/22 06/05/22 06:25 06:25 06:25 WBC 6.08 RBC 3.86 L Hgb 12.7 L Hct 37.1 L MCV 96 H MCH 32.9 MCHC 34.2 RDW 12.9 Plt Count 411 H MPV 9.6 Immature Gran % 0.0 Neutrophils % 28.0 Lymphocytes % 56.0 Atypical Lymphs % 7 Monocytes % 8.0 Eosinophils % 0.0 Basophils % 1.0 Nucleated RBC % 0.0 Absolute Neutrophils 1.70 Absolute Lymphocytes 3.83 H Absolute Monocytes 0.49 Absolute Eosinophils 0.00 Absolute Basophils 0.06 RBC Morphology Normal D-Dimer 518 H Sodium 138 Potassium 3.6 Chloride 104 Carbon Dioxide 26.2 Anion Gap 7.8 BUN 10 Creatinine 0.8 Est GFR (CKD-EPI 2020) 115.45 Glucose 100 Calcium 8.5 Total Bilirubin 0.2 AST 54 H ALT 78 H Alkaline Phosphatase 103 Lactate Dehydrogenase 158 Total Protein 6.2 L Albumin 3.1 L PFSH All Active Problems (Updated 06/04/22 @ 13:58 by Miko Lazcano MD) COVID-19 (Acute) Alcohol withdrawal (Acute) Acute pancreatitis (Acute) Duodenal mass (Acute) Alcoholism (Acute) Infected abrasion of skin of right ankle (Acute) Infected abrasion of skin of left ankle (Acute) Agitation (Acute) Polysubstance use disorder (Acute) Transaminitis (Acute) Contusion of right knee (Acute) Lyme disease (Acute) Abrasion (Acute) Trauma (Acute) Inflammatory arthritis (Acute) Alcoholic ketoacidosis (Acute) Vomiting (Acute) Abdominal pain (Acute) Alcoholic ketoacidosis (Acute) Abdominal pain with vomiting (Acute) Depression with anxiety (Acute) Family history of schizophrenia (Chronic) Father Migraine with aura (Acute) Homeless (Acute) Colitis (Acute) Alcoholic fatty liver (Acute) Nausea and vomiting (Acute) Hypoglycemia (Acute) Severe depression (Chronic) Delirium (Acute) Alcohol abuse (Chronic) Heroin abuse (Chronic) Elevated transaminase level (Acute) Chronic back pain (Chronic) Anxiety, generalized (Chronic) Medical History Depression History of alcohol abuse Opiate addiction Surgical History No significant past surgical history Family History Mother Heart disease Asthma Father No problems noted. Sister Asthma Sister No problems noted. Brother No problems noted. Grandfather Essential hypertension Heart disease Asthma Grandfather Essential hypertension Heart disease Grandmother No problems noted. Grandmother No problems noted. Son No problems noted. Daughter No problems noted. Daughter Asthma Social History Smoking/Tobacco Use Status: Current every day Tobacco Type: cigarettes Smoking risk assessment performed?: Yes Alcohol Intake: current Alcohol Intake frequency: 0-2 drinks per day Alcohol type: beer and hard liquor Counseling provided: other Drug use: Never Substance use type: marijuana and methamphetamine Details: States has used some oxycotin from his doctor, denies heroin use. past IV drug user. 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
== END 2022-06-05 15:51 | disposition left against medical advice (07) | DRG 438 ==
LOC: ER 16:04 → ICU 19:05 → ER 06-04 09:24 → ICU 06-04 09:35 → ER 06-05 13:14 → MSD 06-05 13:14 → MS 06-05 13:14 → ICU 06-05 13:14
PROVIDERS: Internal Medicine; Admitting Provider Family Medicine; Emergency Provider Student in an Organized Health Care Education/Training Program; PCP Family Medicine; Visit Provider Family Medicine
DX: K85.90 Acute pancreatitis without necrosis or infection, unspecified (principal); U07.1 COVID-19; F10.239 Alcohol dependence with withdrawal, unspecified; F17.210 Nicotine dependence, cigarettes, uncomplicated; F12.90 Cannabis use, unspecified, uncomplicated; F15.90 Other stimulant use, unspecified, uncomplicated; Z79.899 Other long term (current) drug therapy; K70.0 Alcoholic fatty liver; K86.1 Other chronic pancreatitis; K31.9 Disease of stomach and duodenum, unspecified; R74.01 Elevation of levels of liver transaminase levels; G43.109 Migraine with aura, not intractable, without status migrainosus; F41.1 Generalized anxiety disorder; F32.9 Major depressive disorder, single episode, unspecified; M54.9 Dorsalgia, unspecified; G89.29 Other chronic pain; F11.21 Opioid dependence, in remission
CPT/HCPCS: 36415; 80053; 80307; 83690; 85027; 87635; 96361; 96365; 96367; 99285; J1650; 74177; 80320; 83615; 85025; 85379; 99223; 99232; 99238; J0131; J0248; J1170; J1885; J2560; J3490

== ENCOUNTER 2022-10-07 22:07 | Emergency (ER) | payer MEDICAID, SELFPAY ==
[2022-10-07 22:11] VITALS: BP 143/82; PULSE 79; RESP 18; TEMP 36.4; O2SAT 96
[2022-10-07 22:23] VITALS: RESP 18
--- NOTE | 2022-10-07 22:24 | ED.GENADUL_ITS ---
Discharge Plan Disposition Patient Disposition: Home Condition: Stable Discharge Details Clinical Impression: Mental health-related complaint Primary Care Provider: Joel Martinez ED Provider: Luis Hill Home Meds and New Rx's Prescriptions: Continued (DME) Tegaderm-Absorbent 3 inx3.75 in See Rx Instructions .Route .MEDSUPPLY Qty: 10 0RF Rx Instructions: As directed on both ankles, change every 3-5 days until healed gabapentin 800 mg tablet 800 mg PO TID Qty: 270 3RF buprenorphine-naloxone 8-2 mg film 1 film SL DAILY buprenorphine-naloxone [Suboxone] 12-3 mg film 1 film sublingual DAILY Rx Instructions: TAKES IN ADDITION TO 8MG FILM, BUT HASN'T HAD IN OVER A WEEK - 02/23/22 Discharge Instructions Additional Instructions: Please follow-up with [facility]. Please follow-up with [facility]. Please contact your primary care physician to arrange follow-up. Return to the ER immediately for any worsening or new concerning symptoms. Referrals: [facility] [Outside] [facility] [Outside] Joel Martinez DO [Primary Care Provider] - Medical Decision Making 37-year-old male with history of anxiety and depression, recently seen in the community last week and there was concern that he may be at risk of harming himself and he was advised to seek mental health treatment and that if he did not seek treatment, a warrant would be made for involuntary psychiatric treatment. Patient has had delayed presentation and has demonstrated safety over the past few days. He is here given threat of warrant. He is not seeking inpatient treatment. Patient is not suicidal and is not at risk of harming himself. I did contact [facility] crisis screener given recent interactions and spoke with carton marker machine screener Dexter. Screener evaluated the patient and agrees with my assessment. He has cancelled warrant. Patient was provided food and referral made to [facility] given alcohol abuse. Patient was encouraged to follow-up with [facility], [facility] and his primary care physician. He was encouraged to return immediately for any worsening or new concerning symptoms. HPI General Mode of arrival: ambulatory . Date/Time Provider Initiated Documentation: 10/07/22 22:21 . Limitations to Documentation: no limitations . Information obtained by: patient . HPI Narrative: 37yo male with history of depression and anxiety, here turning himself in for mental health warrant. Patient notes he has been under a lot of stress recently. He is homeless. His sister recently . He had reached out to [facility] for assistance last week and was told that he needed to seek treatment or any warrant would be completed for involuntary admission. Patient notes he is now in a better place. He is not suicidal and notes that if he did want to kill himself he would have already. He is not seeking inpatient treatment at this time. Related Data Home Medications Medication Instructions Recorded Confirmed buprenorphine 8 mg-naloxone 2 mg 1 film sublingual DAILY 11/22/19 10/07/22 sublingual film buprenorphine 12 mg-naloxone 3 mg 1 film sublingual DAILY 02/23/22 10/07/22 sublingual film (Suboxone) Tegaderm-Absorbent #10 ea 03/03/22 03/03/22 gabapentin 800 mg tablet 800 mg PO TID #270 tabs 03/03/22 10/07/22 Previous Rx's Medication Instructions Recorded Tegaderm-Absorbent #10 ea 03/03/22 gabapentin 800 mg tablet 800 mg PO TID #270 tabs 03/03/22 Allergies Allergy/AdvReac Type Severity Reaction Status Date / Time No Known Allergies Allergy Verified 06/03/22 10:47 General Stated Complaint: GenMedical KAVEH: 3 Review of Systems ENT Comments: Chronic unchanged dental pain Psychiatric Psychiatric: Reports as per HPI [facility] All Active Problems (Updated 10/07/22 @ 22:45 by Luis Hill MD) Mental health-related complaint (Acute) COVID-19 (Acute) Alcohol withdrawal (Acute) Acute pancreatitis (Acute) Duodenal mass (Acute) Alcoholism (Acute) Infected abrasion of skin of right ankle (Acute) Infected abrasion of skin of left ankle (Acute) Agitation (Acute) Polysubstance use disorder (Acute) Transaminitis (Acute) Contusion of right knee (Acute) Lyme disease (Acute) Abrasion (Acute) Trauma (Acute) Inflammatory arthritis (Acute) Alcoholic ketoacidosis (Acute) Vomiting (Acute) Abdominal pain (Acute) Alcoholic ketoacidosis (Acute) Abdominal pain with vomiting (Acute) Depression with anxiety (Acute) Family history of schizophrenia (Chronic) Father Migraine with aura (Acute) Homeless (Acute) Colitis (Acute) Alcoholic fatty liver (Acute) Nausea and vomiting (Acute) Hypoglycemia (Acute) Severe depression (Chronic) Delirium (Acute) Alcohol abuse (Chronic) Heroin abuse (Chronic) Elevated transaminase level (Acute) Chronic back pain (Chronic) Anxiety, generalized (Chronic) Medical History Depression History of alcohol abuse Opiate addiction Surgical History No significant past surgical history Family History Mother Heart disease Asthma Father No problems noted. Sister Asthma Sister No problems noted. Brother No problems noted. Grandfather Essential hypertension Heart disease Asthma Grandfather Essential hypertension Heart disease Grandmother No problems noted. Grandmother No problems noted. Son No problems noted. Daughter No problems noted. Daughter Asthma Social History Smoking/Tobacco Use Status: Current every day Tobacco Type: cigarettes Smoking risk assessment performed?: Yes Alcohol Intake: current Alcohol Intake frequency: 0-2 drinks per day Alcohol type: beer and hard liquor Counseling provided: other Drug use: Never Substance use type: marijuana and methamphetamine Details: States has used some oxycotin from his doctor, denies heroin use. past IV drug user. on MAT program now Housing: apartment Number of Children: 3 What type of physical activity do you participate in: none Drive intox or ride w/intox buggy driver: No Working smoke detector in home: Yes Carbon monox detector in home: Yes Do you feel safe at home: Yes Do you feel safe in your relationship?: Yes Additional Social history: Homeless Exam Const General: cooperative and no acute distress Orientation: alert and awake [facility] Head: normocephalic and atraumatic Mouth: moist mucous membranes Cardio Rate: regular rate and not tachycardic Neuro General: patient alert, patient awake, patient oriented x3 and tone normal Psych Appearance: grossly normal Mental Status: mental status grossly normal and other (depressed recently) Speech and Movement: speech and movement normal Mood: other (depressed recently) Affect: normal affect Attitude: cooperative Thought Process: normal Thought Content: normal Insight: insight good Course Vital Signs Vital signs: Vital Signs Temperature 36.4 C L 10/07/22 22:11 Pulse 79 10/07/22 22:11 Respiratory Rate 18 10/07/22 22:11 Blood Pressure 143/82 H 10/07/22 22:11 Pulse Oximetry 96 10/07/22 22:11 Temperature 36.4 C L 10/07/22 22:11 Temperature Source Oral 10/07/22 22:11 Pulse 79 10/07/22 22:11 Respiratory Rate 18 10/07/22 22:11 Respiratory Effort Normal, Non-Labored 10/07/22 22:21 Blood Pressure 143/82 H 10/07/22 22:11 Blood Pressure Position Sitting 10/07/22 22:11 Pulse Oximetry 96 10/07/22 22:11 Oxygen Delivery Method Room Air 10/07/22 22:11 Oxygen Flow Rate 0 10/07/22 22:11 Pain Level 6 10/07/22 22:11 PAWSS Have you Been Recently Intoxicated or Drunk Within the Last 30 days?: Yes Have you Ever Experienced Previous Episodes of Alcohol Withdrawal?: Yes Have you ever Experienced Withdrawal Seizures?: Yes Have you ever Experienced Delirium Tremens(DT)s?: Yes Have you ever undergone Alcohol Rehabilitation Treatment (i.e, inpt ot outpatient treatment programs)?: Yes Have you ever Experienced Blackouts?: Yes Have you ever Combined Alcohol with other Downers within the last 90 days?: No Have you ever Combined Alcohol with any other Substance of Abuse during the last 90 days?: Yes Positive Blood Alcohol level on Presentation? [PCS.BAL]: Unable to Obtain Evidence of Increased Autonomic Activity (i.e. HR>120, tremor, sweating, agitation, nausea)?: No Result: 8
--- OUTSIDE RECORDS SUMMARY | 2022-10-07 22:28 | XMS_ITS | Continuity of Care Document ---
Author Name Unknown Organization [facility] Address [address] [place] [address] Encounter [facility] FIN NBR [id number] Date(s): 07/01/22 - 07/01/22 [facility] [address] [place] [address]- Encounter Diagnosis Alcoholic ketoacidosis(Discharge Diagnosis) - 07/01/22 Dehydration(Discharge Diagnosis) - 07/01/22 Alcoholic hepatitis(Discharge Diagnosis) - 07/01/22 Discharge Disposition: Home or Self Care Attending Physician: Moises Moreira DO Admitting Physician: Moises Moreira DO Allergies, Adverse Reactions, Alerts No Known Allergies Functional Status 07/01/22 Other exposure to Infectious Disease Non e Medications gabapentin 0 Refill(s) Start Date: 07/01/22 Status: Ordered Suboxone 8 mg-2 mg sublingual film 0 Refill(s) Start Date: 07/01/22 Status: Ordered Mental Status 07/01/22 Eye Opening Response Tyesha Spontaneous ly Best Verbal Response [place] Oriented Best Motor Response Blue [place] Obeys comman ds Blue [place] Coma Score 15 Problem List No Known Problems Results Laboratory List Name Date Amylase Level 07/01/22 Beta Hydroxybutyrate 07/01/22 Comprehensive Metabolic Panel 07/01/22 Lipase Level 07/01/22 Magnesium Level 07/01/22 Phosphorus Level 07/01/22 CBC w/ Diff 07/01/22 Automated Diff 07/01/22 Most recent to oldest [Reference Range]: 1 WBC [4.8-10.8 K/mcL] 7.6 K/mcL (07/01/22 6:46 PM) RBC [4.20-6.10 Million/mcL] 4.04 Million /mcL *LOW* (07/01/22 6:46 PM) Neutro Auto [42.2-75.2 %] 83.9 % *HI* (07/01/22 6:46 PM) Lymph Auto [20.5-51.1 %] 12.0 % *LOW* (07/01/22 6:46 PM) [place] Auto [1.7-9.3 %] 3.5 % (07/01/22 6:46 PM) Basophil Auto [0.0-0.8 %] 0.3 % (07/01/22 6:46 PM) BUN [8-26 mg/dL] 11 mg/dL (07/01/22 6:58 PM) Glucose Level [74-106 mg/dL] 61 mg/dL *LOW* (07/01/22 6:58 PM) Potassium Level [3.5-5.1 mmol/L] 4.3 mmo l/L (07/01/22 6:58 PM) Baso Absolute [0.0-0.2 K/mcL] 0.0 K/mcL (07/01/22 6:46 PM) MCV [80.0-99.0 fL] 100.0 fL *HI* (07/01/22 6:46 PM) AST [15-41 IntlUnit/L] 244 IntlUnit/L *HI* (07/01/22 6:58 PM) Amylase Level [28-100 unit/L] 86 unit/L (07/01/22 6:58 PM) ALT [17-63 IntlUnit/L] 81 IntlUnit/L *HI* (07/01/22 6:58 PM) MCHC [32.0-36.0 g/dL] 33.4 g/dL (07/01/22 6:46 PM) Osmolality [275-295 mOsm/kg] 267 mOsm/kg *LOW* (07/01/22 6:58 PM) Sodium Level [134-143 mmol/L] 135 mmol/L (07/01/22 6:58 PM) Lymph Absolute [1.2-3.4 K/mcL] 0.9 K/mcL *LOW* (07/01/22 6:46 PM) Hct [37.0-52.0 %] 40.4 % (07/01/22 6:46 PM) Lipase Level [18-51 unit/L] 38 unit/L (07/01/22 6:58 PM) Calcium Level [8.9-10.3 mg/dL] 8.9 mg/dL (07/01/22 6:58 PM) [place] Absolute [0.1-0.6 K/mcL] 0.3 K/mcL (07/01/22 6:46 PM) Phosphorus Level 4.8 *NA* (07/01/22 6:58 PM) Albumin Level [3.5-5.0 g/dL] 4.6 g/dL (07/01/22 6:58 PM) Protein Total [6.5-8.1 g/dL] 8.2 g/dL *HI* (07/01/22 6:58 PM) MCH [27.0-31.0 pg] 33.4 pg *HI* (07/01/22 6:46 PM) Magnesium Level [1.8-2.5 mg/dL] 2.1 mg/d L (07/01/22 6:58 PM) Neutro Absolute [1.4-6.5 K/mcL] 6.4 K/mc L (07/01/22 6:46 PM) Bilirubin Total [0.2-1.2 mg/dL] 0.8 mg/d L (07/01/22 6:58 PM) Hgb [12.0-18.0 g/dL] 13.5 g/dL (07/01/22 6:46 PM) Alk Phos [38-130 IntlUnit/L] 144 IntlUni t/L *HI* (07/01/22 6:58 PM) MPV [7.4-10.4 fL] 9.4 fL (07/01/22 6:46 PM) Platelets [130-400 K/mcL] 240 K/mcL (07/01/22 6:46 PM) CO2 [22-32 mmol/L] 12 mmol/L *LOW* (07/01/22 6:58 PM) Eos Absolute [0.0-0.2 K/mcL] 0.0 K/mcL (07/01/22 6:46 PM) eGFR Non-AA 117 *NA* (07/01/22 6:58 PM) eGFR AA 117 *NA* (07/01/22 6:58 PM) Chloride Level [98-111 mmol/L] 98 mmol/L (07/01/22 6:58 PM) RDW-CV [11.5-14.5 %] 13.7 % (07/01/22 6:46 PM) A/G Ratio 1.3 *NA* (07/01/22 6:58 PM) BUN/Creat Ratio [8.0-20.0] 14.5 (07/01/22 6:58 PM) Globulin 3.6 *NA* (07/01/22 6:58 PM) Imm Gran Absolute 0.02 1 *NA* (07/01/22 6:46 PM) Imm Gran Auto [0.0-0.5 %] 0.3 % (07/01/22 6:46 PM) Creatinine Level [0.61-1.24 mg/dL] 0.76 mg/dL (07/01/22 6:58 PM) Anion Gap [3.0-12.0] 25.0 *HI* (07/01/22 6:58 PM) Beta-Hydroxybutyrate [0.02-0.27 mmol/L] 14.54 mmol/L *HI* (07/01/22 6:58 PM) Eos, Auto [0.00-3.00 %] 0.00 % (07/01/22 6:46 PM) 1Result Comment: sample redrawn at 1858 Radiology Reports * Exam Date Time Procedure Performing Provider Status 07/01/22 7:[address] Abdomen and Pelvis w/ Contrast Nelson Corona (Verified) Notes: (CT Abdomen and Pelvis w/ Contrast) Reason For Exam: Abdominal Pain CT Abdomen and Pelvis w/ Contrast PROCEDURE INFORMATION: Exam: CT Abdomen And Pelvis With Contrast Exam date and time: 07/01/2022 6:56 PM Age: 37 years old Clinical indication: Abdominal pain TECHNIQUE: Imaging protocol: Computed tomography of the abdomen and pelvis with contrast. Radiation optimization: All CT scans at this facility use at least one of these dose optimization techniques: automated exposure control; mA and/or kV adjustment per patient size (includes targeted exams where dose is matched to clinical indication); or iterative reconstruction. Contrast material: ISOVUE 300; Contrast volume: 100 ml; Contrast route: INTRAVENOUS (IV); COMPARISON: CT ABD/PELVIS W CONTRAST 08/31/2019 4:49 PM FINDINGS: Lungs: Compared to 08/31/2019, lateral left lower lobe 3 mm stable benign nodule (image 16, series 3). No follow-up imaging is recommended. No acute infiltrate in either lung base. Liver: Liver fatty infiltration. Gallbladder and bile ducts: Normal. No calcified stones. No ductal dilation. Pancreas: Pancreatic atrophy with prominent pancreatic duct. Scattered calcifications throughout the pancreas indicating chronic pancreatitis. Spleen: Normal. No splenomegaly. Adrenal glands: Normal. No mass. Kidneys and ureters: Normal. No hydronephrosis. Stomach and bowel: No generalized ileus or bowel obstruction. The majority of the colon is decompressed or under-distended and wall thickness cannot be accurately assessed. A colitis cannot be excluded. Appendix: Normal appendix. Intraperitoneal space: No free air. No significant fluid collection. Vasculature: Unremarkable. No abdominal aortic aneurysm. Lymph nodes: No enlarged lymph nodes. Urinary bladder: Unremarkable as visualized. Reproductive: Unremarkable as visualized. Bones/joints: Unremarkable for patient age. No acute fracture. Soft tissues: Unremarkable. IMPRESSION: 1. The majority of the colon is decompressed or under-distended and wall thickness cannot be accurately assessed. A colitis cannot be excluded. 2. Scattered calcifications throughout the pancreas indicating chronic pancreatitis. 3. Liver fatty infiltration. 4. Otherwise, no acute intra-abdominal or pelvic process. THIS DOCUMENT HAS BEEN ELECTRONICALLY SIGNED BY NELSON HELTON MD on 07/01/2022 07:50 PM Final Signed by: Nelson Helton MD Signed (Electronic Signature): 07/01/2022 7:50 pm Vital Signs Most recent to oldest [Reference Range]: 1 Temperature Temporal Artery [36-38 Deg C ] 36.6 Deg C (07/01/22 5:54 PM) Peripheral Pulse Rate [60-100 bpm] 80 bp m (07/01/22 5:54 PM) Respiratory Rate [12-24 br/min] 14 br/mi n (07/01/22 5:54 PM) Blood Pressure [90-140/60-90 mmHg] 138/8 2mmHg (07/01/22 5:54 PM) Weight Dosing 58.00 kg (07/01/22 6:10 PM) Weight Estimated 58.00 kg (07/01/22 5:54 PM) Height/Length Dosing 167.000 cm (07/01/22 6:10 PM) Height/Length Estimated 167.000 cm (07/01/22 5:54 PM) Social History Social History Type Response Tobacco Current everyday tob acco user Tobacco Use:. 1ppd per day. Sex Hospital Discharge Instructions Patient Education 07/01/2022 20:56:19 Alcoholic Hepatitis Alcoholic Hepatitis Alcoholic hepatitis is liver inflammation that is caused by drinking a lot of alcohol over a long period of time. Heavy drinking can also be intermittent, such as drinking only on weekends. Inflammation of the liver decreases the liver's ability to function normally. This condition can advance to scarring of the liver (cirrhosis) and liver failure. Alcoholic hepatitis requires that a person stop drinking alcohol permanently to prevent further damage. What are the causes? Alcoholic hepatitis is caused by long-term (chronic) heavy alcohol use. The liver filters alcohol out of the bloodstream. When alcohol gets divided into small particles (broken down) in the liver, substances are produced that can damage liver cells. This causes destruction of the liver cells and inflammation. What increases the risk? The following factors may make you more likely to develop this condition: ??? Regularly drinking large amounts of alcohol in a short amount of time (binge drinking). ??? Drinking heavily for years. ??? Being female. ??? Being obese. ??? Having had a hepatitis infection in the past. ??? Having a liver problem that you were born with (genetic liver disease). ??? Having a lack (deficiency) of certain nutrients, such as folate or thiamine. ??? Having a parent or sibling who has alcoholic hepatitis. What are the signs or symptoms? Symptoms of this condition include: ??? Itching. ??? Fever. ??? Pain and swelling in the abdomen. ??? Loss of appetite or losing weight without trying. ??? Nausea, vomiting, or diarrhea. ??? Yellowing of the skin and the whites of the eyes (jaundice). ??? Veins that you can see (spider veins), especially in the abdomen. ??? Bleeding easily from a minor cut. Signs of the buildup of toxins that affect brain function (hepatic encephalopathy): ??? Trouble thinking clearly. ??? Memory problems. ??? Mood changes. ??? Fatigue. ??? Confusion. How is this diagnosed? This condition may be diagnosed with: ??? A physical exam and a review of your medical history. ??? Blood tests to check liver function. ??? Tests that create detailed images of the body. These may include: ??? A liver ultrasound. ??? CT scan. ??? MRI. ??? A liver biopsy. For this test, a small sample of liver tissue is removed and checked for signs of liver damage. How is this treated? The most important part of treatment is to stop drinking alcohol. If you are addicted to alcohol, your health care provider will help you make a plan to quit. This plan may involve: ??? Taking medicine to decrease unpleasant symptoms that are caused by stopping or decreasing alcohol use (withdrawal symptoms). ??? Entering a treatment program to help you stop drinking. ??? Joining a support group. Treatment for alcoholic hepatitis may also include: ??? Steroid medicines to reduce inflammation. ??? Nutritional therapy. Your health care provider or a dietitian may recommend: ??? Eating a healthy diet. ??? Eating specific foods that contain vitamins and minerals to help you improve nutrient levels inyour body. ??? Taking vitamins and dietary supplements to make sure you maintain nutrient levels in your body. ??? Receiving a donated liver (liver transplant). This is only done in very severe cases and only for people who have completely stopped drinking and can commit to never drinking alcohol again. Follow these instructions at home: ??? Do not drink alcohol. Follow your treatment plan, and work with your health care provider as needed. ??? Consider joining an alcohol support group. These groups can provide emotional support and guidance. ??? Take rkop-[id number]-[id number] and prescription medicines only as told by your health care provider. These include vitamins and supplements. ??? Do not use medicines or eat foods that contain alcohol unless told by your health care provider. ??? Follow instructions from your health care provider or dietitian about nutritional therapy. ??? Keep all follow-up visits. This is important. Where to find support ??? Alcoholics Anonymous: aa.org Contact a health care provider if: ??? You have a fever or chills. ??? You have flu-like symptoms such as fatigue, weakness, or muscle aches. ??? You have nausea, vomiting, or a decreased appetite. ??? You bruise easily. ??? Your urine is very dark. ??? You develop new pain in your abdomen. Get help right away if: ??? You develop jaundice and severely itchy skin. ??? Your legs or abdomen suddenly swell. ??? You bleed easily, such as excessive bleeding from a minor cut. ??? You are confused or not thinking clearly. ??? You have a seizure. ??? You have stools that are black, tar-like, or bloody. ??? You vomit blood. These symptoms may represent a serious problem that is an emergency. Do not wait to see if the symptoms will go away. Get medical help right away. Call your local emergency services (911 in the [place] Do not drive yourself to the hospital. Summary ??? Alcoholic hepatitis is liver inflammation that is caused by drinking a lot of alcohol over a long period of time. ??? Alcoholic hepatitis is diagnosed with blood tests that check liver function. ??? The most important part of treatment is to stop drinking alcohol. Follow your treatment plan, and work with your health care provider as needed. ??? Get help right away if you vomit blood or have stools that are black, tar- like, or bloody. This information is not intended to replace advice given to you by your health care provider. Make sure you discuss any questions you have with your health care provider. Document Revised: 03/27/2021 Document Reviewed: 03/27/2021 [employer] Patient Education ?? 2021 [employer] Follow Up Care 07/01/2022 17:54:09 With:[facility] Address: [address] [place] [phone] When:1 week only if needed Comments:It is very important that you follow-up with??a local PCP for preventative health care. ??I did provide you with information about the [facility] and the contact and service clerks supervisor??who will assist you in getting into recovery. ??It is an amazing resource that I really believe you and your significant other to take advantage of.?? You had significant dehydration and alcoholic ketoacidosis which was??reversed in the emergency department. ??You indicated you are feeling much better. ??Please take Zofran 4 mg??underneath your tongue for any further episodes of nausea/vomiting.?? Please reach out to the above resource to help with getting you into alcohol recovery. ??Return to the emergency department any new/worsening or??for any concerns you may have. Physician Emergency department Note * Moises Moreira DO: PERFORM Event Display: ED Note Physician Authored Date: [id number] FAWN HADDAD :1985 Age:37 years Sex:Male Visit Date:07/01/2022 Basic Information Time Seen: Moises Moreira DO / 07/01/2022 18:01 Chief Complaint Pt reports diffuse abd pain with vomiting that started 2 days ago. hx pancreatitis. 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 ??He states he has a history of chronic pancreatitis.?? No fever/chills.?? No current IVDU.?? Patient denies hematemesis, melena or hematochezia. ??No jaundice.?? No abdominal distention or ascitic fluid noted. Review of Systems: CONSTITUTIONAL: _No weight loss, fever, chills; (+)ve generalized weakness??/ fatigue SKIN: _No rash, no itching, no jaundice EYES: _No visual loss, blurred vision, double vision or scleral icterus ENT: _No hearing loss or tinnitus; patent nares without bleeding or congestion; no sore throat CARDIOLOGY: _No chest pain, No edema, No palpitations PULMONOLOGY: _No pleuritic chest pain, No [id number], No cough, No hemoptysis ABDOMEN:_(+)ve nausea/vomiting,??(+)ve diffuse??abdominal pain, no melena, no hematochezia :_no dysuria, no urinary frequency, no urinary urgency NEURO:_No focal neurological deficit, no headache, no dizziness REST OF REVIEW OF SYSTEMS IS NEGATIVE PERTAINS TO CHIEF COMPLAINT Physical Exam Vitals & Measurements T:??36.6?C ??(Temporal Artery)?? HR:??80??(Peripheral)?? RR:??14?? BP:??138/82?? SpO2:??97%?? HT:??167.000??cm?? WT:??58.00??kg??(Estimated)?? Pain Score:??7?? O2 Therapy:??Room air?? General:??alert,??moderate distress??(nausea/diffuse abdominal cramping). Skin:??warm,??dry. no rash.?? Fair skin turgor with slight delayed capillary refill. Head:??no??trauma,??normocephalic.?? Nares are??patent without rhinorrhea or congestion.?? No posterior pharyngeal erythema or tonsillar exudate. Neck:??trachea??midline,??no??adenopathy,??no??midline tenderness.?? Supple. Eye:??normal??conjunctiva, sclera??clear. PERRLA, EOMI Cardiovascular:??regular??rate and rhythm, normal S1/S2, no murmur,??normal??peripheral perfusion. Respiratory: lungs??CTA, respirations??non-labored. Chest wall:??no??deformity.??no??chest wall tenderness to palpation Gastrointestinal:??soft,??non distended,??no??tenderness,??no??guarding/rebound/rigidity. Extremities:??no??deformity,??no??trauma.??no??unilateral leg swelling,??no??posterior calf tenderness Neurological:??oriented??x 4, LOC??appropriate for age, CN III-XII??intact, motor strength??equal & normal bilaterally, sensation??equal & normal bilaterally, speech??normal Psychiatric:??cooperative, affect??appropriate for age,??normal??judgement,??normal??psychiatric thoughts. Medical Decision Making: Abdominal pain??in the setting of severe??alcohol use disorder.?? Differential diagnosis includes pancreatitis, gastritis, colitis, enteritis has possibilities.?? Other etiologies could include alcoholic ketoacidosis. ??Will obtain screening laboratory work-up??and treat with??D5 normal saline,??replace electrolytes as necessary,??and obtain screening laboratory work-up.?? CT imaging with contrast of the abdomen pelvis will also be obtained. Procedure No Qualifying Data Reexamination/Reevaluation 10:00 PM: Laboratory work-up as documented below.?? Significant findings include alcoholic hepatitis, alcoholic ketoacidosis with low CO2, elevated anion gap, and elevated BHB.?? D5 normal saline in addition to isotonic fluids were administered.?? Patient was administered additionally Protonix, droperidol, Benadryl, and acetaminophen IV.?? He had significant clinical improvement with treatments by the emergency department and was tolerating oral fluids.?? I felt he should remain in the hospitalunder observation admission until clearance of acidosis.?? Patient was adamant about being discharged home.?? At this point he is hemodynamics have improved, he remains afebrile, and is significantlyimproved with regard to nausea/vomiting and abdominal cramping.?? He is tolerating oral liquids.?? I do not find it unreasonable to discharge him home with 4 tablets of Zofran 4 mg ODT and instructions to continue aggressive hydration to light ginna-colored urine.?? Resources were provided specifically for the director of the [facility] for alcohol cessation and recovery support.?? All questions were answered.?? Patient expressed understanding of disposition and was grateful for discharge home. Assessment/Plan 1.??Alcoholic ketoacidosis??E87.29 2.??Dehydration??E86.0 3.??Alcoholic hepatitis??K70.10 Patient Discharge Condition Afebrile. ??Hemodynamically stable. Discharge Disposition Discharge home Patient Education Alcoholic Hepatitis Follow Up With When Contact Information [facility] Within 1 week, only if needed [address], [place] [address]- [phone] Additional Instructions: It is very important that you follow-up with??a local PCP for preventativehealth care. ??I did provide you with information about the [facility] and the contact and service clerks supervisor??who will assist you in getting into recovery. ??It is an amazing resource that I really believe you and your significant other to take advantage of.?? You had significant dehydration and alcoholic ketoacidosis which was??reversed in the emergency department. ??You indicated you are feeling much better. ??Please take Zofran 4 mg??underneath your tongue for any further episodes of nausea/vomiting.??Please reach out to the above resource to help with getting you into alcohol recovery. ??Return to [facility] hospital emergency department any new/worsening or??for any concerns you may have. Medication Reconciliation Unchanged buprenorphine-naloxone (Suboxone 8 mg-2 mg sublingual film) ?? gabapentin Problem List/Past Medical History Ongoing No chronic problems Historical No qualifying data Medication Administration Given D5NS, 1000 mL, IV Bolus Sodium Chloride 0.9%, 2000 mL, IV Bolus acetaminophen, 1000 mg, IV Piggyback diphenhydrAMINE, 25 mg, IV Push droperidol, 1.25 mg, IV Push Normal Saline Flush, 10 mL, IV Flush pantoprazole, 40 mg, IV Push Allergies No Known Allergies Social History Alcohol Current- Comments: fifth of vodka/day Electronic Cigarette/Vaping Electronic Cigarette Use: Never. Substance Use Marijuana Tobacco Current everyday tobacco user Tobacco Use:. 1ppd per day. Family History Non-Contributory Diagnostic Results CT Abdomen and Pelvis w/ Contrast 07/01/2022 19:[address] Abdomen and Pelvis w/ Contrast ?? 07/01/22 18:56:47 PROCEDURE INFORMATION: Exam: CT Abdomen And Pelvis With Contrast Exam date and time: 07/01/2022 6:56 PM Age: 37 years old Clinical indication: Abdominal pain ?? TECHNIQUE: Imaging protocol: Computed tomography of the abdomen and pelvis with contrast. Radiation optimization: All CT scans at this facility use at least one of these dose optimization techniques: automated exposure control; mA and/or kV adjustment per patient size (includes targeted exams where dose is matched to clinical indication); or iterative reconstruction. Contrast material: ISOVUE 300; Contrast volume: 100 ml; Contrast route: INTRAVENOUS (IV); ?? COMPARISON: CT ABD/PELVIS W CONTRAST 08/31/2019 4:49 PM ?? FINDINGS: Lungs: Compared to 08/31/2019, lateral left lower lobe 3 mm stable benign nodule (image 16, series 3). No follow-up imaging is recommended. No acute infiltrate in either lung base. ?? Liver: Liver fatty infiltration. Gallbladder and bile ducts: Normal. No calcified stones. No ductal dilation. Pancreas: Pancreatic atrophy with prominent pancreatic duct. Scattered calcifications throughout the pancreas indicating chronic pancreatitis. Spleen: Normal. No splenomegaly. Adrenal glands: Normal. No mass. Kidneys and ureters: Normal. No hydronephrosis. Stomach and bowel: No generalized ileus or bowel obstruction. The majority of the colon is decompressed or under-distended and wall thickness cannot be accurately assessed. A colitis cannot be excluded. Appendix: Normal appendix. ?? Intraperitoneal space: No free air. No significant fluid collection. Vasculature: Unremarkable. No abdominal aortic aneurysm. Lymph nodes: No enlarged lymph nodes. Urinary bladder: Unremarkable as visualized. Reproductive: Unremarkable as visualized. Bones/joints: Unremarkable for patient age. No acute fracture. Soft tissues: Unremarkable. ?? IMPRESSION: 1. The majority of the colon is decompressed or under-distended and wall thickness cannot be accurately assessed. A colitis cannot be excluded. 2. Scattered calcifications throughout the pancreas indicating chronic pancreatitis. 3. Liver fatty infiltration. 4. Otherwise, no acute intra-abdominal or pelvic process. ? THIS DOCUMENT HAS BEEN ELECTRONICALLY SIGNED BY NELSON HELTON MD on 07/01/2022 07:50 PM ?? Signed By: Nelson Helton MD Lab Results CBC and Differential?? LATEST RESULTS?? WBC?? 07/01/22 18:46?? 7.6?? RBC?? 07/01/22 18:46?? 4.04 ??Low?? Hgb?? 07/01/22 18:46?? 13.5?? Hct?? 07/01/22 18:46?? 40.4?? MCV?? 07/01/22 18:46?? 100.0 ??High?? MCH?? 07/01/22 18:46?? 33.4 ??High?? MCHC?? 07/01/22 18:46?? 33.4?? RDW-CV?? 07/01/22 18:46?? 13.7?? Platelets?? 07/01/22 18:46?? 240?? MPV?? 07/01/22 18:46?? 9.4?? Neutro Auto?? 07/01/22 18:46?? 83.9 ??High?? Lymph Auto?? 07/01/22 18:46?? 12.0 ??Low?? [place] Auto?? 07/01/22 18:46?? 3.5?? Eos, Auto?? 07/01/22 18:46?? 0.00?? Basophil Auto?? 07/01/22 18:46?? 0.3?? Imm Gran Auto?? 07/01/22 18:46?? 0.3?? Neutro Absolute?? 07/01/22 18:46?? 6.4?? Lymph Absolute?? 07/01/22 18:46?? 0.9 ??Low?? [place] Absolute?? 07/01/22 18:46?? 0.3?? Eos Absolute?? 07/01/22 18:46?? 0.0?? Baso Absolute?? 07/01/22 18:46?? 0.0?? Imm Gran Absolute?? 07/01/22 18:46?? 0.02? Routine Chemistry?? LATEST RESULTS?? Sodium Level?? 07/01/22 18:58?? 135?? Potassium Level?? 07/01/22 18:58?? 4.3?? Chloride Level?? 07/01/22 18:58?? 98?? CO2?? 07/01/22 18:58?? 12 ??Low?? Alk Phos?? 07/01/22 18:58?? 144 ??High?? AST?? 07/01/22 18:58?? 244 ??High?? ALT?? 07/01/22 18:58?? 81 ??High?? BUN?? 07/01/22 18:58?? 11?? Glucose Level?? 07/01/22 18:58?? 61 ??Low?? Creatinine Level?? 07/01/22 18:58?? 0.76?? BUN/Creat Ratio?? 07/01/22 18:58?? 14.5?? eGFR AA?? 07/01/22 18:58?? 117?? eGFR Non-AA?? 07/01/22 18:58?? 117?? Calcium Level?? 07/01/22 18:58?? 8.9?? Phosphorus Level?? 07/01/22 18:58?? 4.8?? Protein Total?? 07/01/22 18:58?? 8.2 ??High?? Albumin Level?? 07/01/22 18:58?? 4.6?? Globulin?? 07/01/22 18:58?? 3.6?? A/G Ratio?? 07/01/22 18:58?? 1.3?? Bilirubin Total?? 07/01/22 18:58?? 0.8?? Anion Gap?? 07/01/22 18:58?? 25.0 ??High?? Amylase Level?? 07/01/22 18:58?? 86?? Beta-Hydroxybutyrate?? 07/01/22 18:58?? 14.54 ??High?? Lipase Level?? 07/01/22 18:58?? 38?? Magnesium Level?? 07/01/22 18:58?? 2.1?? Osmolality?? 07/01/22 18:58?? 267 ??Low? Electronically Signed on 07/02/22 10:25 AM Moises Moreira DO Emergency department Discharge instructions * Moises Moreira, DO: PERFORM Event Display: ED Discharge Information Authored Date: [id number] FAWN HADDAD :1985 Age:37 years Sex:Male Visit Date:07/01/2022 Discharge Instructions We would like to thank you for allowing us to assist you with your healthcare needs. The following includes patient education materials and information regarding your injury/illness. Diagnosis from Today's Visit Alcoholic ketoacidosis Dehydration Alcoholic hepatitis Discharge Vitals Temperature??(Temporal Artery) 97.9 ??F (36.6 ??C) Heart Rate??(Peripheral) 80 Respiratory Rate?? 14 Blood Pressure?? 138/82?? Height?? 65.75 in (167.000 cm) Weight??(Estimated) 127.89 lb (58.00 kg) Allergies No Known Allergies What to Do Next You Need to Schedule the Following Appointments Follow Up with??[facility] When:??Within 1 week, only if needed Why: It is very important that you follow-up with??a local PCP for preventative health care. ??I did provide you with information about the [facility] and the contact and service clerks supervisor??who will assist you in getting into recovery. ??It is an amazing resource that I really believe you and your significantother to take advantage of.?? You had significant dehydration and alcoholic ketoacidosis which was??reversed in the emergency department. ??You indicated you are feeling much better. ??Please take Zofran 4 mg??underneath your tongue for any further episodes of nausea/vomiting.?? Please reach out tothe above resource to help with getting you into alcohol recovery. ??Return to the emergency department any new/worsening or??for any concerns you may have. Where: [address], [place] [address] [phone] You were treated today on an emergency basis; it may be coppola to contact your primary care provider to notify them of your visit today. You may have been referred to your regular doctor or a specialist, please follow up as instructed. If your condition worsens or you can't get in to see the doctor, contact the Emergency Department. Medications What When Instructions Next Dose Unchanged buprenorphine-naloxone (Suboxone 8 mg-2 mg sublingual film) Unchanged gabapentin Education Materials Alcoholic Hepatitis Alcoholic hepatitis is liver inflammation that is caused by drinking a lot of alcohol over a long period of time. Heavy drinking can also be intermittent, such as drinking only on weekends. Inflammation of the liver decreases the liver's ability to function normally. This condition can advance to scarring of the liver (cirrhosis) and liver failure. Alcoholic hepatitis requires that a person stop drinking alcohol permanently to prevent further damage. What are the causes? Alcoholic hepatitis is caused by long-term (chronic) heavy alcohol use. The liver filters alcohol out of the bloodstream. When alcohol gets divided into small particles (broken down) in the liver, substances are produced that can damage liver cells. This causes destruction of the liver cells and inflammation. What increases the risk? The following factors may make you more likely to develop this condition: ? Regularly drinking large amounts of alcohol in a short amount of time (binge drinking). ? Drinking heavily for years. ? Being female. ? Being obese. ? Having had a hepatitis infection in the past. ? Having a liver problem that you were born with (genetic liver disease). ? Having a lack (deficiency) of certain nutrients, such as folate or thiamine. ? Having a parent or sibling who has alcoholic hepatitis. What are the signs or symptoms? Symptoms of this condition include: ? Itching. ? Fever. ? Pain and swelling in the abdomen. ? Loss of appetite or losing weight without trying. ? Nausea, vomiting, or diarrhea. ? Yellowing of the skin and the whites of the eyes (jaundice). ? Veins that you can see (spider veins), especially in the abdomen. ? Bleeding easily from a minor cut. Signs of the buildup of toxins that affect brain function (hepatic encephalopathy): ? Trouble thinking clearly. ? Memory problems. ? Mood changes. ? Fatigue. ? Confusion. How is this diagnosed? This condition may be diagnosed with: ? A physical exam and a review of your medical history. ? Blood tests to check liver function. ? Tests that create detailed images of the body. These may include: ? A liver ultrasound. ? CT scan. ? MRI. ? A liver biopsy. For this test, a small sample of liver tissue is removed and checked for signs of liver damage. How is this treated? The most important part of treatment is to stop drinking alcohol. If you are addicted to alcohol, your health care provider will help you make a plan to quit. This plan may involve: ? Taking medicine to decrease unpleasant symptoms that are caused by stopping or decreasing alcohol use (withdrawal symptoms). ? Entering a treatment program to help you stop drinking. ? Joining a support group. Treatment for alcoholic hepatitis may also include: ? Steroid medicines to reduce inflammation. ? Nutritional therapy. Your health care provider or a dietitian may recommend: ? Eating a healthy diet. ? Eating specific foods that contain vitamins and minerals to help you improve nutrient levels in your body. ? Taking vitamins and dietary supplements to make sure you maintain nutrient levels in your body. ? Receiving a donated liver (liver transplant). This is only done in very severe cases and only for people who have completely stopped drinking and can commit to never drinking alcohol again. Follow these instructions at home: ? Do not drink alcohol. Follow your treatment plan, and work with your health care provider as needed. ? Consider joining an alcohol support group. These groups can provide emotional support and guidance. ? Take dyne-rlq-chfevrr and prescription medicines only as told by your health care provider. These include vitamins and supplements. ? Do not use medicines or eat foods that contain alcohol unless told by your health care provider. ? Follow instructions from your health care provider or dietitian about nutritional therapy. ? Keep all follow-up visits. This is important. Where to find support ? Alcoholics Anonymous: aa.org Contact a health care provider if: ? You have a fever or chills. ? You have flu-like symptoms such as fatigue, weakness, or muscle aches. ? You have nausea, vomiting, or a decreased appetite. ? You bruise easily. ? Your urine is very dark. ? You develop new pain in your abdomen. Get help right away if: ? You develop jaundice and severely itchy skin. ? Your legs or abdomen suddenly swell. ? You bleed easily, such as excessive bleeding from a minor cut. ? You are confused or not thinking clearly. ? You have a seizure. ? You have stools that are black, tar-like, or bloody. ? You vomit blood. These symptoms may represent a serious problem that is an emergency. Do not wait to see if the symptoms will go away. Get medical help right away. Call your local emergency services (911 in the [place] Do not drive yourself to the hospital. Summary ? Alcoholic hepatitis is liver inflammation that is caused by drinking a lot of alcohol over a long period of time. ? Alcoholic hepatitis is diagnosed with blood tests that check liver function. ? The most important part of treatment is to stop drinking alcohol. Follow your treatment plan, and work with your health care provider as needed. ? Get help right away if you vomit blood or have stools that are black, tar-like, or bloody. This information is not intended to replace advice given to you by your health care provider. Make sure you discuss any questions you have with your health care provider. Document Revised: 03/27/2021 Document Reviewed: 03/27/2021 [employer] Patient Education ?? 2021 [employer] Tests Performed Radiology CT Abdomen and Pelvis w/ Contrast 07/01/2022 19:51 EST Medications and Immunizations Administered Given D5NS, 1000 mL, IV Bolus Sodium Chloride 0.9%, 2000 mL, IV Bolus acetaminophen, 1000 mg, IV Piggyback diphenhydrAMINE, 25 mg, IV Push droperidol, 1.25 mg, IV Push Normal Saline Flush, 10 mL, IV Flush pantoprazole, 40 mg, IV Push Lab Test Name Test Result Date/Time WBC 7.6 K/mcL 07/01/2022 18:46 EST RBC 4.04 Million/mcL 07/01/2022 18:46 EST Hgb 13.5 g/dL 07/01/2022 18:46 EST Hct 40.4 % 07/01/2022 18:46 EST MCV 100.0 fL 07/01/2022 18:46 EST MCH 33.4 pg 07/01/2022 18:46 EST MCHC 33.4 g/dL 07/01/2022 18:46 EST RDW-CV 13.7 % 07/01/2022 18:46 EST Platelets 240 K/mcL 07/01/2022 18:46 EST MPV 9.4 fL 07/01/2022 18:46 EST Neutro Auto 83.9 % 07/01/2022 18:46 EST Lymph Auto 12.0 % 07/01/2022 18:46 EST [place] Auto 3.5 % 07/01/2022 18:46 EST Eos, Auto 0.00 % 07/01/2022 18:46 EST Basophil Auto 0.3 % 07/01/2022 18:46 EST Imm Gran Auto 0.3 % 07/01/2022 18:46 EST Neutro Absolute 6.4 K/mcL 07/01/2022 18:46 EST Lymph Absolute 0.9 K/mcL 07/01/2022 18:46 EST [place] Absolute 0.3 K/mcL 07/01/2022 18:46 EST Eos Absolute 0.0 K/mcL 07/01/2022 18:46 EST Baso Absolute 0.0 K/mcL 07/01/2022 18:46 EST Imm Gran Absolute 0.02 07/01/2022 18:46 EST Sodium Level 135 mmol/L 07/01/2022 18:58 EST Potassium Level 4.3 mmol/L 07/01/2022 18:58 EST Chloride Level 98 mmol/L 07/01/2022 18:58 EST CO2 12 mmol/L 07/01/2022 18:58 EST Alk Phos 144 IntlUnit/L 07/01/2022 18:58 EST AST 244 IntlUnit/L 07/01/2022 18:58 EST ALT 81 IntlUnit/L 07/01/2022 18:58 EST BUN 11 mg/dL 07/01/2022 18:58 EST Glucose Level 61 mg/dL 07/01/2022 18:58 EST Creatinine Level 0.76 mg/dL 07/01/2022 18:58 EST BUN/Creat Ratio 14.5 07/01/2022 18:58 EST eGFR AA 117 07/01/2022 18:58 EST eGFR Non-AA 117 07/01/2022 18:58 EST Calcium Level 8.9 mg/dL 07/01/2022 18:58 EST Phosphorus Level 4.8 07/01/2022 18:58 EST Protein Total 8.2 g/dL 07/01/2022 18:58 EST Albumin Level 4.6 g/dL 07/01/2022 18:58 EST Globulin 3.6 07/01/2022 18:58 EST A/G Ratio 1.3 07/01/2022 18:58 EST Bilirubin Total 0.8 mg/dL 07/01/2022 18:58 EST Anion Gap 25.0 07/01/2022 18:58 EST Amylase Level 86 unit/L 07/01/2022 18:58 EST Beta-Hydroxybutyrate 14.54 mmol/L 07/01/2022 18:58 EST Lipase Level 38 unit/L 07/01/2022 18:58 EST Magnesium Level 2.1 mg/dL 07/01/2022 18:58 EST Osmolality 267 mOsm/kg 07/01/2022 18:58 EST Patient/Licensed Pesticide Applicator Signature Patient Name:FAWN HADDAD I have received this information and my questions have been answered. Patient/Licensed Pesticide Applicator Name: Patient/Licensed Pesticide Applicator Signature: Relationship to Patient: Witness Name/Signature: Date: Electronically Signed on: 07/01/2022 21:58 ESTSigned by:HAYLIE CT Abdomen and Pelvis W contrast IV * Nelson Helton MD: VERIFY, VERIFY Event Display: Report PROCEDURE INFORMATION: Exam: CT Abdomen And Pelvis With Contrast Exam date and time: 07/01/2022 6:56 PM Age: 37 years old Clinical indication: Abdominal pain TECHNIQUE: Imaging protocol: Computed tomography of the abdomen and pelvis with contrast. Radiation optimization: All CT scans at this facility use at least one of these dose optimization techniques: automated exposure control; mA and/or kV adjustment per patient size (includes targeted exams where dose is matched to clinical indication); or iterative reconstruction. Contrast material: ISOVUE 300; Contrast volume: 100 ml; Contrast route: INTRAVENOUS (IV); COMPARISON: CT ABD/PELVIS W CONTRAST 08/31/2019 4:49 PM FINDINGS: Lungs: Compared to 08/31/2019, lateral left lower lobe 3 mm stable benign nodule (image 16, series 3). No follow-up imaging is recommended. No acute infiltrate in either lung base. Liver: Liver fatty infiltration. Gallbladder and bile ducts: Normal. No calcified stones. No ductal dilation. Pancreas: Pancreatic atrophy with prominent pancreatic duct. Scattered calcifications throughout the pancreas indicating chronic pancreatitis. Spleen: Normal. No splenomegaly. Adrenal glands: Normal. No mass. Kidneys and ureters: Normal. No hydronephrosis. Stomach and bowel: No generalized ileus or bowel obstruction. The majority of the colon is decompressed or under-distended and wall thickness cannot be accurately assessed. A colitis cannot be excluded. Appendix: Normal appendix. Intraperitoneal space: No free air. No significant fluid collection. Vasculature: Unremarkable. No abdominal aortic aneurysm. Lymph nodes: No enlarged lymph nodes. Urinary bladder: Unremarkable as visualized. Reproductive: Unremarkable as visualized. Bones/joints: Unremarkable for patient age. No acute fracture. Soft tissues: Unremarkable.
--- NOTE | 2022-10-07 22:39 | PDOC.MHPN2 ---
Date of service: 10/07/22 Time of Service: 22:39 Suicide Severity Rate CSSRS Have you wished you were or wished you could go to sleep and not wake up?: No Have you actually had any thoughts of killing yourself?: No CSSRS3 Have you ever done anything, started to do anything or prepared to do anything to end your life?: Yes CSSRS4 Was this within the past three months?: No Screening Score Total Score: 2 Screening: Positive Mental Health Emergency Note Release [facility] release signed:: No Reason for Visit Client presented to the ED due to prior knowledge of a warrant for emergency examination being written on his behalf. In the last 2 weeks has the pt presented for ES prior to today?: Yes, presented at [facility] Client Information Client is: New Well Housed: No,status: Homeless Stable housing Non Suicidal Self Injury Current: No History: yes, Cutting Safety Risk/Harm to Self or Others Current Ideation to Harm Self or Others: No Risk: Does risk to harm exist?: yes. Access to means: Yes. Types of Means: Other weapons. Counseling provided: Yes Risk: Low Risk Duty to warn indicated: No Asssessment/Mental Status Appearance: Unremarkable Attitude: Cooperative and Passive Behavior: Unremarkable Speech: Normal Affect: Normal Mood: Anxious Thought process: Unremarkable Hallucinations: No evidence Delusions: No evidence Attention: Unremarkable Perception: Not impaired Orientation: Fully orientated Memory: Intact Insight: Good Judgement: Fair Neurovegetative Symptoms Sleep: No change Appetitie: No change Interests: No change Energy: No change Substance Use: ETOH dependence Do you use nicotine?: Yes Have you used substances in the last 7 days?: No Additional Issues: Assaultive/Threatening Behavior: No Medical Concerns: No Client engaged in active self harm w/weapon: No Threatening to run away: No Child reported abuse/neglect: No Voluntarily presenting for services: Yes Domestic violence is a concern: No Extreme Psychosis or extreme behavior is present: No Impression Katy reports he only presented to the ED to clear the warrant for emergency examination as he is no longer interested in seeking in patient treatment and would like to manage his mental health and substance abuse issues on an outpatient level. The client reports he is connected to a SA counselor and saw her yesterday. This client did not endorse SI/HI/NSSI. This clinician gave the client some resources for food, housing and his general welfare, he declined stating he is fine [facility]. Client declined any additional follow up from [facility]. Client walked off EE based on this assessment, [facility] notified of EE dismissal. Resources Reosurces reviewed and given:: 988, [facility] and Other Plan/Disposition Recommended Disposition: Community resources. Person reported agreement to plan: Yes Reports/communication Outcome discussed with: ED/Personnel
--- NOTE | 2022-10-07 23:31 | NUR.NOTE ---
Referral to [facility], alcoholism, homelessness.Nursing Note:
== END 2022-10-07 22:55 | disposition home or self-care (01) ==
PROVIDERS: Emergency Provider Student in an Organized Health Care Education/Training Program; PCP Family Medicine
DX: Z00.8 Encounter for other general examination (principal); F32.A Depression, unspecified; F41.9 Anxiety disorder, unspecified; Z59.00 Homelessness unspecified
CPT/HCPCS: 99282

== ENCOUNTER 2022-11-08 07:29 | Inpatient (IN) | payer MEDICAID, SELFPAY ==
[2022-11-08] VITALS (116 sets, daily range): BP systolic 108–140; BP diastolic 55–93; PULSE 48–108; RESP 8–37; TEMP 36.8–36.9; O2SAT 96–100
--- NOTE | 2022-11-08 | DI.US_ITS ---
Exam(s) US ABDOMEN EXAM: US ABDOMEN CLINICAL HISTORY: transaminitis TECHNIQUE: Ultrasound abdomen performed using standard protocol. COMPARISON: CT CT ABDOMEN PELVIS W from 11/08/2022 FINDINGS: LIVER: Mild hepatic steatosis.. No focal liver lesions are seen.. GALLBLADDER: 11 millimeter polyp. No evidence of cholelithiasis. No evidence of wall thickening. No pericholecystic fluid identified. DILLON'S SIGN: Negative. BILIARY SYSTEM: No intrahepatic or extrahepatic biliary ductal dilation. KIDNEYS: Kidneys are symmetric in size. No evidence of renal calculi. No evidence of hydronephrosis. No renal mass or cyst identified. PANCREAS: Multiple calcifications noted. The duct is dilated to 8 millimeters. SPLEEN: Not enlarged. ABDOMINAL AORTA AND IVC: Visualized portions normal caliber. ASCITES: None seen. IMPRESSION: Atrophic pancreas with multiple calcifications and pancreatic ductal dilatation. 11 millimeter maximal dimension gallbladder polyp. Follow-up could be considered at 6 months due to size over 10 millimeters. DATA REPOSITORY:
--- NOTE | 2022-11-08 08:00 | RT.EKG_ITS ---
APPROVED REPORT Exam: Resting ECG Reason for Exam: nausea vomitting Patient Location: E HR:69 bpm ECG Measurements Heart Rate 69 AXIS UT 139 P 57 QRSd 85 QRS 82 QT 421 T 73 QTc 451 Conclusion Sinus rhythm...normal P axis, V-rate 60- 99 Narrow complex normal sinus rhythm at a rate of 69. Normal axis. Intervals within normal limits. C oncave upsloping ST segments in V2 and V3. T wave inversion in aVL. No ST segment depressions. No acute injury pattern. No prior for comparison.
[2022-11-08 08:49] LABS: Abs Immature Grans 0.02 10^3/uL (0.0-0.06); Absolute Basophil Count 0.01 10^3/uL (0.0-0.2); Absolute Lymphocyte Count 0.34 10^3/uL (1.2-3.4); Absolute Monocyte Count 0.36 10^3/uL (0.1-0.8); Absolute Neutrophil Count 6.95 10^3/uL (1.2-6.7); Basophils % 0.1; HGB 16.4 g/dL (13.5-17.5); Immature Grans % 0.3; Lymphocytes % 4.4; MCH 34.4 pg (27.0-33.0); MCHC 34.9 % (32.0-36.0); MCV 99 fL (80-95); MPV 9.9 fL (8.0-11.0); Monocytes % 4.7; Neutrophils % 90.5; RBC 4.77 10^6/uL (4.36-5.78); RDW 11.5 % (11.8-14.1); RDW-SD 42.5 fL; WBC 7.68 10^3/uL (4.4-10.8)
[2022-11-08] MEDS: Normal Saline 1,000 ML 1000 ML IV ×2 (08:52→14:53)
[2022-11-08] MEDS: LORazepam 2 MG/ML VIAL 1 MG IVP ×2 (08:59→11:55)
[2022-11-08] MEDS: Ketorolac 15 MG/ML VIAL IVP (08:59)
[2022-11-08 09:09] LABS: Albumin 4.5 g/dL (3.4-5.0); Alkaline Phosphatase 333 U/L (46-116); Anion Gap 19.5 mmol/L (3-11); BUN 15 mg/dL (7-18); Bilirubin, Total 2.6 mg/dL (0.2-1.0); CO2 22.5 mmol/L (21.0-32.0); CREATININE 0.8 mg/dL (0.70-1.30); Calcium 9.9 mg/dL (8.5-10.1); Chloride 96 mmol/L (98-107); ETHANOL BLOOD 7.8 mg/dL (<10); Estimated GFR 115.45 (mL/min/1.73m2); Glucose 95 mg/dL (74-106); Lipase 22 U/L (16-77); Magnesium 1.9 mg/dL (1.8-2.4); Potassium 3.9 mmol/L (3.5-5.1); Sodium 138 mmol/L (136-145); Total Protein 8.9 g/dL (6.4-8.2)
--- NOTE | 2022-11-08 09:15 | DI.CT_ITS ---
Exam(s) CT ABDOMEN PELVIS W EXAM: CT ABDOMEN PELVIS W CLINICAL HISTORY: abd pain, n/v. TECHNIQUE: Imaging Protocol: Axial computed tomography images with coronal and sagittal reformatted images were created and reviewed CONTRAST MATERIAL: Intravenous: Omnipaque 350 Contrast volume:100 ml Oral: no COMPARISON: No exams were available for comparison FINDINGS: ABDOMEN: Lung Bases: Normal where visualized. Liver: Mildly enlarged. Mild fatty infiltration. No measurable mass. Gallbladder and biliary tract: No radiodense calculus or dilation. Pancreas: Atrophic. Multiple calcifications and pancreatic ductal dilatation, consistent with chroni c pancreatitis. No evidence of pseudocyst. Spleen: Normal. Kidneys: Normal size, contour and axis. No radiodense stones or obstructive uropathy. No suspicious m asses seen. Adrenal glands: No masses seen. Abdominal Aorta: Abdominal portion non-dilated. Soft tissues: Unremarkable. PELVIS: Bladder: No gross wall thickening. No calculi.No focal mass. Bowel: Dilated loops of small bowel with thickened wall seen on the left upper and mid abdomen. Duod enum also dilated. No pneumatosis. Colon unremarkable. Appendix normal. Peritoneal cavity: No ascites, collection or mesenteric inflammatory response. Bones: Unremarkable for age. Reproductive organs: Within normal limits. Lymph nodes: Unremarkable. Impression: Findings consistent with duodenitis and enteritis of the proximal jejunum. No abscess or free air pe er Chronic pancreatitis. RADIATION DOSE DELIVERED: 526.94mGy.cm Total DLP DATA REPOSITORY: All CT scans at this facility are submitted to the National Radiology Data Registry (NRDR) Dose Index Registry (DIR) with the [employer] (ACR). RADIATION OPTIMIZATION: All CT scans at this facility use at least one of these dose optimization te chniques: automated exposure control; mA and/or kV adjustment per patient size (includes targeted exa ms where dose is matched to clinical indication); or iterative reconstruction.
[2022-11-08 09:21] LABS: Diff Comment PLT Morph Reviewed; Platelet Count 93 10^3/uL (130-400); RBC Morphology Normal
[2022-11-08 09:26] LABS: ALT 1227 U/L (16-63); AST 3867 U/L (15-37)
[2022-11-08] MEDS: Normal Saline - Diluent 50 ML VIAL IJ (10:04)
[2022-11-08] MEDS: Omnipaque 350 MG/ML 100 ML BTL IJ (10:08)
[2022-11-08] MEDS: Normal Saline Flush 10 ML SYR IVP ×2 (10:08→17:47)
--- NOTE | 2022-11-08 10:36 | DI.VRAD_ITS ---
PROCEDURE INFORMATION: Exam: CT Abdomen And Pelvis With Contrast Exam date and time: 11/08/2022 10:02 AM Age: 37 years old Clinical indication: Abdominal pain; Other: Abd pain, n/v TECHNIQUE: Imaging protocol: Computed tomography of the abdomen and pelvis with contrast. Contrast material: OMNIPAQUE 350; Contrast volume: 100 ml; Contrast route: INTRAVENOUS (IV); COMPARISON: No relevant prior studies available. FINDINGS: Liver: Hepatomegaly and diffuse fatty infiltrationNo mass. Gallbladder and bile ducts: Normal. No calcified stones. No ductal dilation. Pancreas: Chronic calcific pancreatitis with associated ductal dilation. Spleen: Normal. No splenomegaly. Adrenal glands: Normal. No mass. Kidneys and ureters: Normal. No hydronephrosis. Stomach and bowel: Prominent thickened small bowel loops with fluid levels most pronounced in the jejunum. Gastric and duodenal thickening. No obstruction Appendix: No evidence of appendicitis. Intraperitoneal space: Unremarkable. No free air. No significant fluid collection. Vasculature: Unremarkable. No abdominal aortic aneurysm. Lymph nodes: Unremarkable. No enlarged lymph nodes. Urinary bladder: Unremarkable as visualized. Reproductive: Unremarkable as visualized. Bones/joints: Disc bulging at L5-S1 with mild central canal stenosis No acute fracture. Soft tissues: Unremarkable. IMPRESSION: Enteritis/ileus suspected Chronic calcific pancreatitis with associated ductal dilatation. No CT evidence for acute pancreatitis Dictated and Authenticated by: Jack Raymond MD. Ordering:NADIA Kan MD
--- NOTE | 2022-11-08 10:48 | W.ED.GENAD ---
Discharge Plan Disposition Patient Disposition: Admit to [facility] Condition: Serious Discharge Details Clinical Impression: Hepatic dysfunction, Abdominal pain, Nausea & vomiting, Homelessness Admit Date/Time: 11/08/22 14:11 Admit Provider: Rosy Baker Attending Provider: Rosy Baker Primary Care Provider: None,None ED Provider: Lucius Randolph Discharge Data Discharge Date/Time-TO BE ENTERED AT DEPARTURE: 11/08/22 15:36 Medical Decision Making Patient presenting to the emergency department via EMS for chief complaint of abdominal pain. Patient is homeless and states he drinks 1/5 of vodka daily and that he has been increasing his alcohol intake over the last 3 days. He states history of chronic pancreatitis which his symptoms feel similar to in the past. Denies fever chills chest pain. Will admit that there is difficult assessing and obtaining review of systems with patient due to him moaning due to discomfort. Patient states his last drink was last night. Physical exam shows diffuse abdominal tenderness with patient just moaning with any palpation of the abdomen. Attempted to review patient medical records but he has not been to our facility before. We will plan on checking patient's labs and obtaining CT imaging for high potential of pancreatitis given patient's reported history but also considered is alcohol withdrawal, or other intra-abdominal pathology. Pending results we will give patient IV fluids, ketorolac. Please see physician interpretation for full interpretation of EKG but upon my review patient is in sinus rhythm with no acute findings to suggest STEMI. Reviewed labs and patient's CBC does show slightly low platelet count at 93, neutrophils 6.95 lymphocytes 0.34 otherwise nondiagnostic CBC. Patient's INR is appropriate at 1, lactate of 1.9, chloride slightly low at 96, significant elevated anion gap at 19.5. Patient has significant alteration of LFTs with a total bilirubin of 2.6, AST is 3867, ALT 1227, alk phos of 333, total protein high at 8.9. Patient's ammonia is less than 10, lipase is 22, alcohol level is 7.8 and nondetectable acetaminophen. I am concerned for hepatitis. So we will order acute hepatitis panel. Asked patient if he had history of hepatitis which he denies any history of this. Reviewed CT imaging and radiologist interpretation that showed chronic pancreatitis with no findings to suggest acute pancreatitis. Otherwise patient appears to have enteritis/ileus. Did discuss case with hospitalist who recommended at minimum consult to tertiary care center for question of acute versus chronic hepatitis. I feel this is reasonable. Spoke with Dr. Keating at [facility]. She stated that there were no beds available recommended further testing such as Qasim bar panel testing, autoimmune hepatic testing and Doppler ultrasound if available. She stated otherwise supportive treatment pending results. Discussed this with hospitalist who agreed to have patient admitted. Patient was reassessed and did have slightly more interaction with me which was reassuring but will continue with supportive care and additional fluid bolus was ordered. Patient is agreeable to staying in the hospital and states continued abdominal discomfort. Imaging Data Radiologic Study: Imaging: CT Scan Radiologist's impression: Exam(s) PROCEDURE INFORMATION: Exam: CT Abdomen And Pelvis With Contrast Exam date and time: 11/08/2022 10:02 AM Age: 37 years old Clinical indication: Abdominal pain; Other: Abd pain, n/v TECHNIQUE: Imaging protocol: Computed tomography of the abdomen and pelvis with contrast. Contrast material: OMNIPAQUE 350; Contrast volume: 100 ml; Contrast route: INTRAVENOUS (IV); COMPARISON: No relevant prior studies available. FINDINGS: Liver: Hepatomegaly and diffuse fatty infiltrationNo mass. Gallbladder and bile ducts: Normal. No calcified stones. No ductal dilation. Pancreas: Chronic calcific pancreatitis with associated ductal dilation. Spleen: Normal. No splenomegaly. Adrenal glands: Normal. No mass. Kidneys and ureters: Normal. No hydronephrosis. Stomach and bowel: Prominent thickened small bowel loops with fluid levels most pronounced in the jejunum. Gastric and duodenal thickening. No obstruction Appendix: No evidence of appendicitis. Intraperitoneal space: Unremarkable. No free air. No significant fluid collection. Vasculature: Unremarkable. No abdominal aortic aneurysm. Lymph nodes: Unremarkable. No enlarged lymph nodes. Urinary bladder: Unremarkable as visualized. Reproductive: Unremarkable as visualized. Bones/joints: Disc bulging at L5-S1 with mild central canal stenosis No acute fracture. Soft tissues: Unremarkable. IMPRESSION: Enteritis/ileus suspected Chronic calcific pancreatitis with associated ductal dilatation. No CT evidence for acute pancreatitis Lab Data Lab results reviewed: Yes I reviewed the patient's lab results. HPI General Mode of arrival: ambulatory. Date/Time Provider Initiated Documentation: 11/08/22 08:13. Limitations to Documentation: no limitations. Information obtained by: patient and RN notes reviewed. History of Present Illness 37 year old M presents to the emergency department with the chief complaint of Abdominal pain nausea vomiting, described as moderate and similar to prior episodes, with intensity rated at 7. Quality is described as aching, and is localized to the abdomen. Patient started experiencing this day(s) and it has been constant. Patient did receive the following treatments prior to arrival, other (100 mcg of fentanyl) Related Data Home Medications Medication Instructions Recorded Confirmed buprenorphine 8 mg-naloxone 2 mg 2 film sublingual DAILY 11/08/22 11/08/22 sublingual film gabapentin 800 mg tablet 800 mg PO TID 11/08/22 11/08/22 Allergies Allergy/AdvReac Type Severity Reaction Status Date / Time No Known Allergies Allergy Unverified 11/08/22 07:38 General Stated Complaint: Abd Prob KAVEH: 3 Review of Systems Constitutional Constitutional: Denies chills, Reports fatigue, Denies fever(s), Reports malaise and Reports poor appetite Cardiovascular Cardiovascular: Denies chest pain and Denies dyspnea Respiratory Respiratory: Denies dyspnea Gastrointestinal Gastrointestinal: Reports abdominal pain, Denies hematochezia, Reports nausea, Reports vomiting and Denies hematemesis Genitourinary Genitourinary: Denies oliguria Endocrine Endocrine: Reports fatigue PFSH All Active Problems (Updated 11/11/22 @ 09:22 by Miko Lazcano MD) Homelessness (Acute) Unsheltered homelessness (Acute) Nicotine dependence (Acute) Alcohol withdrawal (Acute) Duodenitis (Acute) Portal hypertensive gastropathy (Acute) Thrombocytopenia (Chronic) Discharge planning issues (Acute) DVT prophylaxis (Acute) Opioid abuse (Acute) Dilated pancreatic duct (Acute) Chronic pancreatitis (Chronic) GI bleeding (Chronic) Gallbladder polyp (Acute) Transaminitis (Acute) Alcohol abuse (Chronic) IV drug user (Acute) Fatty liver (Acute) Hepatic dysfunction (Acute) Abdominal pain (Acute) Nausea & vomiting (Acute) Medical History (Updated 11/11/22 @ 09:22 by Miko Lazcano MD) DKA (diabetic ketoacidosis) Pancreatitis Surgical History (Updated 11/08/22 @ 17:47 by Rosy Baker MD) No significant past surgical history Family History (Updated 11/08/22 @ 17:48 by Rosy Baker MD) Mother Heart disease Diabetes Father Heart disease Stroke Hypertension Self No problems noted. Sister Diabetes Hypertension Maternal Grandmother Cancer type Social History (Updated 11/08/22 @ 17:50 by Rosy Baker MD) Smoking/Tobacco Use Status: Current every day Tobacco Type: cigarettes Smoking packs per day: 1 Smoking cigarettes per day: 20.0 Years smoked: 30 Smoking pack-years: 30.00 Counseling given: provider counseling and support medications Smoking risk assessment performed?: Yes Alcohol Intake: current Alcohol Intake frequency: 3 or more drinks per day Alcohol type: hard liquor Counseling given: Yes Counseling provided: provider counseling Drug use: Daily Substance use type: marijuana, IV drugs and other Details: fentanyl Counseling given: Yes Counseling provided: provider counseling Housing: homeless Other: Lives alone in a tent in the [facility] Additional Social history: homeless, lives alone in a tent in the [facility] Exam Const General: ill appearing Orientation: alert and awake Resp Effort & Inspection: normal respiratory effort and able to speak in complete sentences Auscultation: clear to auscultation bilaterally Cardio Rate: regular rate Rhythm: regular rhythm Heart Sounds: S1 normal and S2 normal GI Palpation: not firm, guarding, no masses, no pulsatile masses, not rigid, no splenomegaly and tender (Diffuse slightly more epigastric and upper quadrants) Auscultation: hypoactive bowel sounds Back/Spine/Pelvis Back: no CVA tenderness Neuro General: patient alert, patient awake, patient oriented x3, gait normal and moves all extremities Course Vital Signs Vital signs: Vital Signs Pulse 69 11/08/22 07:34 Respiratory Rate 16 11/08/22 07:34 Blood Pressure 129/73 11/08/22 07:34 Pulse Oximetry 100 11/08/22 07:34 Temperature Source Oral 11/08/22 07:34 Pulse 69 11/08/22 07:34 Respiratory Rate 16 11/08/22 07:34 Respiratory Effort Normal, Short of Breath 11/08/22 07:42 Respiratory Pattern Normal 11/08/22 10:40 Blood Pressure 129/73 11/08/22 07:34 Pulse Oximetry 100 11/08/22 07:34 Oxygen Delivery Method Room Air 11/08/22 07:34 Oxygen Flow Rate 0 11/08/22 07:34 Lab/Test Results Lab/Test Results: Laboratory Tests Range/Units 11/08/22 11/08/22 11/08/22 08:13 08:35 08:35 WBC (4.4-10.8) 10^3/uL 7.68 RBC (4.36-5.78) 10^6/uL 4.77 Hgb (13.5-17.5) g/dL 16.4 Hct (40.0-50.0) % 47.0 MCV (80-95) fL 99 H MCH (27.0-33.0) pg 34.4 H MCHC (32.0-36.0) % 34.9 RDW (11.8-14.1) % 11.5 L Plt Count (130-400) 10^3/uL 93 L MPV (8.0-11.0) fL 9.9 Immature Gran % 0.3 Neutrophils % 90.5 Lymphocytes % 4.4 Monocytes % 4.7 Eosinophils % 0.0 Basophils % 0.1 Nucleated RBC % (0.0-0.3) % 0.0 Absolute Neutrophils (1.2-6.7) 10^3/uL 6.95 H Absolute Lymphocytes (1.2-3.4) 10^3/uL 0.34 L Absolute Monocytes (0.1-0.8) 10^3/uL 0.36 Absolute Eosinophils (0.0-0.7) 10^3/uL 0.00 Absolute Basophils (0.0-0.2) 10^3/uL 0.01 RBC Morphology Normal VBG Lactate Cancelled Sodium (136-145) mmol/L 138 Potassium (3.5-5.1) mmol/L 3.9 Chloride (98-107) mmol/L 96 L Carbon Dioxide (21.0-32.0) mmol/L 22.5 Anion Gap (3-11) mmol/L 19.5 H BUN (7-18) mg/dL 15 Creatinine (0.70-1.30) mg/dL 0.8 Est GFR (CKD-EPI 2020) (mL/min/1.73m2) 115.45 Glucose (74-106) mg/dL 95 Calcium (8.5-10.1) mg/dL 9.9 Magnesium (1.8-2.4) mg/dL 1.9 Total Bilirubin (0.2-1.0) mg/dL 2.6 H AST (15-37) U/L 3867 H ALT (16-63) U/L 1227 H Alkaline Phosphatase (46-116) U/L 333 H Total Protein (6.4-8.2) g/dL 8.9 H Albumin (3.4-5.0) g/dL 4.5 Lipase (16-77) U/L 22 Ethyl Alcohol (<10) mg/dL 7.8 Range/Units 11/08/22 08:35 WBC (4.4-10.8) 10^3/uL RBC (4.36-5.78) 10^6/uL Hgb (13.5-17.5) g/dL Hct (40.0-50.0) % MCV (80-95) fL MCH (27.0-33.0) pg MCHC (32.0-36.0) % RDW (11.8-14.1) % Plt Count (130-400) 10^3/uL MPV (8.0-11.0) fL Immature Gran % Neutrophils % Lymphocytes % Monocytes % Eosinophils % Basophils % Nucleated RBC % (0.0-0.3) % Absolute Neutrophils (1.2-6.7) 10^3/uL Absolute Lymphocytes (1.2-3.4) 10^3/uL Absolute Monocytes (0.1-0.8) 10^3/uL Absolute Eosinophils (0.0-0.7) 10^3/uL Absolute Basophils (0.0-0.2) 10^3/uL RBC Morphology VBG Lactate Sodium (136-145) mmol/L Potassium (3.5-5.1) mmol/L Chloride (98-107) mmol/L Carbon Dioxide (21.0-32.0) mmol/L Anion Gap (3-11) mmol/L BUN (7-18) mg/dL Creatinine (0.70-1.30) mg/dL Est GFR (CKD-EPI 2020) (mL/min/1.73m2) Glucose (74-106) mg/dL Calcium (8.5-10.1) mg/dL Magnesium (1.8-2.4) mg/dL Total Bilirubin (0.2-1.0) mg/dL AST (15-37) U/L ALT (16-63) U/L Alkaline Phosphatase (46-116) U/L Total Protein (6.4-8.2) g/dL Albumin (3.4-5.0) g/dL Lipase (16-77) U/L Ethyl Alcohol (<10) mg/dL Cancelled
[2022-11-08] MEDS: HYDROmorphone 2 MG/ML SYR 1 MG IVP (10:55)
[2022-11-08 11:18] LABS: Acetaminophen < 2 ug/mL (10-30)
[2022-11-08] MEDS: Ondansetron 4 MG/2 ML VIAL IVP (11:55)
[2022-11-08 11:58] LABS: Lactate 1.9 mmol/L (0.6-1.4)
[2022-11-08 12:10] LABS: Ammonia < 10 umol/L (11-32)
[2022-11-08 12:13] LABS: PTT Activated 24.2 sec (21.5-31.9); Prothrombin Time 9.9 sec (9.3-11.0)
[2022-11-08 12:55] LABS: COVID-19 PCR Negative (Negative); Influenza A PCR Negative (Negative); Influenza B PCR Negative (Negative); RSV PCR Negative (Negative)
[2022-11-08 13:41] LABS: Source Nasopharynx
[2022-11-08 14:57] LABS: Lab Add On Test DONE
[2022-11-08 15:34] LABS: Iron 256 ug/dL (65-175); Total Iron Binding Capacity 349 ug/dL (250-450); Transferrin Sat 73 % (20-55)
[2022-11-08 15:45] LABS: *AMPHETAMINES SCREEN URINE Negative (Negative); *BARBITURATES SCREEN URINE Negative (Negative); *BENZODIAZEPINES SCREEN URINE Negative (Negative); Cannabinoids THC Positive (Negative); Cocaine Screen,Urine Negative (Negative); METHADONE URINE SCREEN Negative (Negative); OPIATES URINE SCREEN Positive (Negative)
[2022-11-08 15:49] LABS: Bilirubin Small (Negative); Blood Negative (Negative); Clarity Clear (Clear); Glucose Negative (Negative); Ketones >=160 mg/dL (Negative); Leukocyte Esterase Negative (Negative); Nitrite Negative (Negative); Tricyclic Antidepressants Negative (Negative); Urobilinogen 0.2 mg/dL (Up to 0.2); pH 5.5 (5-8)
--- NOTE | 2022-11-08 15:52 | DI.VRAD_ITS ---
PROCEDURE INFORMATION: Exam: US Abdomen Complete Exam date and time: 11/08/2022 3:09 PM Age: 37 years old Clinical indication: Other: Transaminitis, pancreatic findings on CT TECHNIQUE: Imaging protocol: Real-time ultrasound of the abdomen with image documentation. Complete exam. COMPARISON: CT ABDOMEN PELVIS W 11/08/2022 10:02 AM FINDINGS: Liver: Echogenic. No mass. Gallbladder: Polyp versus mass at the gallbladder fundus measuring 11 x 7 x 10 mm. There is no gallbladder wall thickening. No sonographic Rivers's sign or pericholecystic fluid Biliary ducts: Normal. No stones. No dilation. Pancreas: Dilated up to 8 mm. Calcifications in the pancreatic body Right kidney: Normal. No mass. No hydronephrosis. Left kidney: Normal. No mass. No hydronephrosis. Spleen: Normal. No splenomegaly. Aorta: Normal. No aneurysm. Inferior vena cava: Normal. IMPRESSION: Gallbladder fundus polyp versus mass as noted Fatty infiltration of the liver Chronic calcific pancreatitis and pancreatic ductal dilatation Dictated and Authenticated by: Jack Raymond MD. Ordering:ANGIE Gallegos MD
[2022-11-08 15:56] LABS: RBC 0-2 HPF (0-2); WBC 0-2 HPF (0-5)
[2022-11-08 15:57] LABS: Bacteria Negative HPF (Negative); C & S Indicated? No; Casts Negative LPF (Negative); Crystals Negative HPF (Negative); Epithelial Cells Rare HPF (Negative); Mucus Trace (Negative)
[2022-11-08 16:02] LABS: TSH (W/Ref FT4) 0.45 uIU/mL (0.36-3.74)
[2022-11-08] MEDS: LORazepam 1 MG TAB PO/SL (16:07)
[2022-11-08] MEDS: Lactated Ringers 1,000 ML 125 ML IV (16:52)
[2022-11-08] MEDS: THIAMINE 100 MG in Normal Saline 100 ML 200 MG IVPB (16:55)
--- NOTE | 2022-11-08 17:25 | W.PM.HP.N ---
Date of service: 11/08/22 Time of Service: 17:25 Assessment and Plan Assessment and plan (1) Transaminitis: Status: Acute Assessment and plan: In setting of alcohol abuse, gallbladder polyp, IVD use. Await hepatitis panel, autoimmune hepatitis panel, tick panel, HIV. C/s general surgery. Monitor LFTs, INR. I suspect that the INR will start to increase and that the reason that it is normal is because the liver injury is acute. Obtain MRCP. (2) GI bleeding: Status: Chronic Assessment and plan: NPO. Started on IV protonix + carafate. C/s general surgery. Hold chemical DVT ppx and NSAIDS. Trend H/H's. (3) Gallbladder polyp: Status: Acute Assessment and plan: as above (4) Dilated pancreatic duct: Status: Acute Assessment and plan: as above (5) Thrombocytopenia: Status: Chronic Assessment and plan: Suspect this is due to chronic EtOH use. Will check B12 level, tick panel. (6) Chronic pancreatitis: Status: Chronic Assessment and plan: W/ evidence of calcifications and dilated pancreatic duct on CT/US. Obtain MRCP. (7) Opioid abuse: Status: Acute Assessment and plan: Due to patient's severity of abdominal pain, we are holding his suboxone. His pain will be treated with IV dilaudid. Checking HIV/hepatitis studies as he does use drugs IV, though he states he does not share needles. I have also ordered blood cultures. (8) Alcohol abuse: Status: Chronic Assessment and plan: Monitor for signs of EtOH w/d in the ICU with prn IV ativan. Phenobarbital is contraindicated due to severity of the liver injury. (9) Nausea & vomiting: Status: Acute Assessment and plan: Suspect this could be a combination of the primary process driving the elevation of LFTs, such as hepatitis, opioid withdrawal, gastritis/GI bleeding, gastroenteritis. Provide antiemetics. (10) Abdominal pain: Status: Acute Assessment and plan: As above. Treating with IV dilaudid. (11) DVT prophylaxis: Status: Acute Assessment and plan: SCDs. Hold chemical DVT ppx in setting of GI bleeding (12) Discharge planning issues: Status: Acute Assessment and plan: Full code. Admit to ICU. Total Critical Care Time 60 minutes. He is homeless. History of Present Illness History of Present Illness Chief Complaint: Abdominal pain, nausea, vomiting. I couldn't eat Narrative: Mr Madrid is a 37 year old male with PMHx of fatty liver, EtOH abuse w/ prior EtOH withdrawal and seizures (drinks a fifth of vodka per day, last drink last night), as well as h/o chronic pancreatitis and DKA, but reportedly not diabetes, per patient, IVD use (fentanyl; states he does not share needles) and Lyme disease, who presented to [facility] ED today w/ two days of abdominal pain which started as epigastric but became generalized and started to radiate to the back, as well as n/v, which are described as brown and green diarrhea. He also reports chills. His ER workup revealed AST of 3867, ALT of 1227, alk phos of 333, T. bili of 2.6, albumin of 4.5, INR of 1.0, and ammonia of <10. His lipase is 22 (normal). GI consult was sought with [facility] who recommended testing hepatitis panel as well as autoimmune hepatitis studies and observation. He was refused in transfer due to capacity. The patient is being admitted to the ICU under the hospitalist service, where he is indeed gastroccult positive. He was initiated on pantoprazole 80 mg IV BID and carafate and made NPO. Review of Systems All systems reviewed & are unremarkable except as noted in HPI and below PFSH All Active Problems (Updated 11/08/22 @ 19:33 by Rosy Baker MD) Thrombocytopenia (Chronic) Discharge planning issues (Acute) DVT prophylaxis (Acute) Opioid abuse (Acute) Dilated pancreatic duct (Acute) Chronic pancreatitis (Chronic) GI bleeding (Chronic) Gallbladder polyp (Acute) Transaminitis (Acute) Alcohol abuse (Chronic) IV drug user (Acute) Fatty liver (Acute) Hepatic dysfunction (Acute) Abdominal pain (Acute) Nausea & vomiting (Acute) Medical History (Updated 11/08/22 @ 19:33 by Rosy Baker MD) DKA (diabetic ketoacidosis) Pancreatitis Surgical History (Updated 11/08/22 @ 17:47 by Rosy Baker MD) No significant past surgical history Family History (Updated 11/08/22 @ 17:48 by Rosy Baker MD) Mother Heart disease Diabetes Father Heart disease Stroke Hypertension Self No problems noted. Sister Diabetes Hypertension Maternal Grandmother Cancer type Social History (Updated 11/08/22 @ 17:50 by Rosy Baker MD) Smoking/Tobacco Use Status: Current every day Tobacco Type: cigarettes Smoking packs per day: 1 Smoking cigarettes per day: 20.0 Years smoked: 30 Smoking pack-years: 30.00 Counseling given: provider counseling and support medications Smoking risk assessment performed?: Yes Alcohol Intake: current Alcohol Intake frequency: 3 or more drinks per day Alcohol type: hard liquor Counseling given: Yes Counseling provided: provider counseling Drug use: Daily Substance use type: marijuana, IV drugs and other Details: fentanyl Counseling given: Yes Counseling provided: provider counseling Housing: homeless Other: Lives alone in a tent in the [facility] Additional Social history: homeless, lives alone in a tent in the [facility] Med Allergies and Home Medications Allergies Allergy/AdvReac Type Severity Reaction Status Date / Time No Known Allergies Allergy Unverified 11/08/22 07:38 Home Medications Medication Instructions Recorded Confirmed Type buprenorphine 8 mg-naloxone 2 mg 2 film sublingual DAILY 11/08/22 11/08/22 History sublingual film gabapentin 800 mg tablet 800 mg PO TID 11/08/22 11/08/22 History Exam Narrative Exam Narrative: General: Pleasant but ill appearing male who looks uncomfortable, A&Ox3, unkempt appearance Neurological: A&Ox3, anxious, tremulous (generalized) Psychiatric: Anxious Skin: Several well healed track martinez R and L hand/wrist, R AC; hands unwashed. HEENT: Atraumatic, normocephalic, EOMI, no scleral icterus, dry MM, clear oropharynx, no submandibular or cervical lymphadenopathy, no goiter or JVD Cardiovascular: RRR, no m/r/g Lungs: CTAB Gastrointestinal: soft, diffusely tender, nondistended Genitourinary: deferred Extremities: no edema BLEs, 1+ pedal pulses B, no evidence of injection martinez on feet, no clubbing/cyanosis Results Imaging Additional studies: EKG: NSR, HR 69, peaking T waves and upsloping ST segments in II, III, V2-V6. CT abdomen/pelvis: Enteritis/ileus suspected Chronic calcific pancreatitis with associated ductal dilatation. No CT evidence for acute pancreatitis US abdomen: Atrophic pancreas with multiple calcifications and pancreatic ductal dilatation. 11 millimeter maximal dimension gallbladder polyp.? Follow-up could be considered at 6 months due to size over 10 millimeters. Labs 11/08/22 08:35 11/08/22 08:35 Labs: Laboratory Results - last 24 hr 11/08/22 11/08/22 11/08/22 08:13 08:35 08:35 WBC 7.68 RBC 4.77 Hgb 16.4 Hct 47.0 MCV 99 H MCH 34.4 H MCHC 34.9 RDW 11.5 L Plt Count 93 L MPV 9.9 Immature Gran % 0.3 Neutrophils % 90.5 Lymphocytes % 4.4 Monocytes % 4.7 Eosinophils % 0.0 Basophils % 0.1 Nucleated RBC % 0.0 Absolute Neutrophils 6.95 H Absolute Lymphocytes 0.34 L Absolute Monocytes 0.36 Absolute Eosinophils 0.00 Absolute Basophils 0.01 RBC Morphology Normal PT INR APTT VBG Lactate Cancelled Sodium 138 Potassium 3.9 Chloride 96 L Carbon Dioxide 22.5 Anion Gap 19.5 H BUN 15 Creatinine 0.8 Est GFR (CKD-EPI 2020) 115.45 Glucose 95 Calcium 9.9 Magnesium 1.9 Iron TIBC Transferrin % Sat Total Bilirubin 2.6 H AST 3867 H ALT 1227 H Alkaline Phosphatase 333 H Ammonia Total Protein 8.9 H Albumin 4.5 Lipase 22 TSH Urine Color Urine Clarity Urine pH Ur Specific [place] Urine Protein Urine Ketones Urine Blood Urine Nitrite Urine Bilirubin Urine Urobilinogen Ur Leukocyte Esterase Urine RBC Urine WBC Ur Epithelial Cells Urine Crystals Urine Bacteria Urine Casts Urine Mucus Ur Culture Indicated? Urine Glucose Urine Opiates Screen Urine Methadone Screen Acetaminophen Ur Barbiturates Screen Ur Tricyclics Screen Ur Amphetamines Screen U Benzodiazepines Scrn Urine Cocaine Screen Ur THC Screen Ethyl Alcohol 7.8 COVID-19 Source SARS-CoV-2 (PCR) Influenza Type A (PCR) Influenza Type B (PCR) RSV (PCR) Add-On Test Request 11/08/22 11/08/22 11/08/22 08:35 10:30 11:53 WBC RBC Hgb Hct MCV MCH MCHC RDW Plt Count MPV Immature Gran % Neutrophils % Lymphocytes % Monocytes % Eosinophils % Basophils % Nucleated RBC % Absolute Neutrophils Absolute Lymphocytes Absolute Monocytes Absolute Eosinophils Absolute Basophils RBC Morphology PT INR APTT VBG Lactate Sodium Potassium Chloride Carbon Dioxide Anion Gap BUN Creatinine Est GFR (CKD-EPI 2020) Glucose Calcium Magnesium Iron TIBC Transferrin % Sat Total Bilirubin AST ALT Alkaline Phosphatase Ammonia < 10 L Total Protein Albumin Lipase TSH Urine Color Urine Clarity Urine pH Ur Specific [place] Urine Protein Urine Ketones Urine Blood Urine Nitrite Urine Bilirubin Urine Urobilinogen Ur Leukocyte Esterase Urine RBC Urine WBC Ur Epithelial Cells Urine Crystals Urine Bacteria Urine Casts Urine Mucus Ur Culture Indicated? Urine Glucose Urine Opiates Screen Urine Methadone Screen Acetaminophen < 2 Ur Barbiturates Screen Ur Tricyclics Screen Ur Amphetamines Screen U Benzodiazepines Scrn Urine Cocaine Screen Ur THC Screen Ethyl Alcohol Cancelled COVID-19 Source SARS-CoV-2 (PCR) Influenza Type A (PCR) Influenza Type B (PCR) RSV (PCR) Add-On Test Request 11/08/22 11/08/22 11/08/22 11:53 11:53 12:14 WBC RBC Hgb Hct MCV MCH MCHC RDW Plt Count MPV Immature Gran % Neutrophils % Lymphocytes % Monocytes % Eosinophils % Basophils % Nucleated RBC % Absolute Neutrophils Absolute Lymphocytes Absolute Monocytes Absolute Eosinophils Absolute Basophils RBC Morphology PT 9.9 INR 1.0 APTT 24.2 VBG Lactate 1.9 H Sodium Potassium Chloride Carbon Dioxide Anion Gap BUN Creatinine Est GFR (CKD-EPI 2020) Glucose Calcium Magnesium Iron TIBC Transferrin % Sat Total Bilirubin AST ALT Alkaline Phosphatase Ammonia Total Protein Albumin Lipase TSH Urine Color Urine Clarity Urine pH Ur Specific [place] Urine Protein Urine Ketones Urine Blood Urine Nitrite Urine Bilirubin Urine Urobilinogen Ur Leukocyte Esterase Urine RBC Urine WBC Ur Epithelial Cells Urine Crystals Urine Bacteria Urine Casts Urine Mucus Ur Culture Indicated? Urine Glucose Urine Opiates Screen Urine Methadone Screen Acetaminophen Ur Barbiturates Screen Ur Tricyclics Screen Ur Amphetamines Screen U Benzodiazepines Scrn Urine Cocaine Screen Ur THC Screen Ethyl Alcohol COVID-19 Source Nasopharynx SARS-CoV-2 (PCR) Negative Influenza Type A (PCR) Negative Influenza Type B (PCR) Negative RSV (PCR) Negative Add-On Test Request 11/08/22 11/08/22 11/08/22 14:19 14:19 14:19 WBC RBC Hgb Hct MCV MCH MCHC RDW Plt Count MPV Immature Gran % Neutrophils % Lymphocytes % Monocytes % Eosinophils % Basophils % Nucleated RBC % Absolute Neutrophils Absolute Lymphocytes Absolute Monocytes Absolute Eosinophils Absolute Basophils RBC Morphology PT INR APTT VBG Lactate Sodium Potassium Chloride Carbon Dioxide Anion Gap BUN Creatinine Est GFR (CKD-EPI 2020) Glucose Calcium Magnesium Iron 256 H TIBC 349 Transferrin % Sat 73 H Total Bilirubin AST ALT Alkaline Phosphatase Ammonia Total Protein Albumin Lipase TSH 0.45 Urine Color Urine Clarity Urine pH Ur Specific [place] Urine Protein Urine Ketones Urine Blood Urine Nitrite Urine Bilirubin Urine Urobilinogen Ur Leukocyte Esterase Urine RBC Urine WBC Ur Epithelial Cells Urine Crystals Urine Bacteria Urine Casts Urine Mucus Ur Culture Indicated? Urine Glucose Urine Opiates Screen Urine Methadone Screen Acetaminophen Ur Barbiturates Screen Ur Tricyclics Screen Ur Amphetamines Screen U Benzodiazepines Scrn Urine Cocaine Screen Ur THC Screen Ethyl Alcohol COVID-19 Source SARS-CoV-2 (PCR) Influenza Type A (PCR) Influenza Type B (PCR) RSV (PCR) Add-On Test Request DONE 11/08/22 11/08/22 15:10 15:10 WBC RBC Hgb Hct MCV MCH MCHC RDW Plt Count MPV Immature Gran % Neutrophils % Lymphocytes % Monocytes % Eosinophils % Basophils % Nucleated RBC % Absolute Neutrophils Absolute Lymphocytes Absolute Monocytes Absolute Eosinophils Absolute Basophils RBC Morphology PT INR APTT VBG Lactate Sodium Potassium Chloride Carbon Dioxide Anion Gap BUN Creatinine Est GFR (CKD-EPI 2020) Glucose Calcium Magnesium Iron TIBC Transferrin % Sat Total Bilirubin AST ALT Alkaline Phosphatase Ammonia Total Protein Albumin Lipase TSH Urine Color Yellow Urine Clarity Clear Urine pH 5.5 Ur Specific [place] 1.020 Urine Protein 100 H Urine Ketones >=160 H Urine Blood Negative Urine Nitrite Negative Urine Bilirubin Small H Urine Urobilinogen 0.2 Ur Leukocyte Esterase Negative Urine RBC 0-2 Urine WBC 0-2 Ur Epithelial Cells Rare Urine Crystals Negative Urine Bacteria Negative Urine Casts Negative Urine Mucus Trace Ur Culture Indicated? No Urine Glucose Negative Urine Opiates Screen Positive A Urine Methadone Screen Negative Acetaminophen Ur Barbiturates Screen Negative Ur Tricyclics Screen Negative Ur Amphetamines Screen Negative U Benzodiazepines Scrn Negative Urine Cocaine Screen Negative Ur THC Screen Positive A Ethyl Alcohol COVID-19 Source SARS-CoV-2 (PCR) Influenza Type A (PCR) Influenza Type B (PCR) RSV (PCR) Add-On Test Request Last Vital Signs Pulse 69 11/08/22 15:00 Resp 32 H 11/08/22 15:00 BP 122/86 11/08/22 15:00 Pulse Ox 99 11/08/22 13:40 Time Spent Time spent with Patient: 55-74 minutes Time was spent: preparing to see the patient(eg.review tests), obtaining and/or reviewing separately otained hiistory, ordering medications,tests, procedures, referring, communicating with other health career development consultant, indepentently interpreting results, counseling the patient and care coordination
[2022-11-08] MEDS: Sucralfate 1 GM TAB PO ×2 (17:45→22:42)
[2022-11-08] MEDS: Nicotine 21 MG/24 HR PATCH TD ×2 (17:46→21:12)
[2022-11-08] MEDS: Pantoprazole 40 MG VIAL 80 MG IVP (17:46)
[2022-11-08] MEDS: HYDROmorphone 2 MG/ML SYR IVP ×4 (17:47→22:49)
[2022-11-08 19:13] LABS: HCT 41.2 % (40.0-50.0)
[2022-11-08 19:21] LABS: HGB 14.2 g/dL (13.5-17.5)
[2022-11-08 19:26] LABS: C-Reactive Protein 0.42 mg/dL (0.0-0.3)
[2022-11-08 19:43] LABS: ALT 764 U/L (16-63); Albumin 3.3 g/dL (3.4-5.0); Alkaline Phosphatase 234 U/L (46-116); Bilirubin, Direct 0.4 mg/dL (0.0-0.2); Bilirubin, Total 1.6 mg/dL (0.2-1.0); Total Protein 6.8 g/dL (6.4-8.2)
[2022-11-08 19:47] LABS: AST 1106 U/L (15-37)
[2022-11-08 19:54] LABS: Procalcitonin 0.5 ng/mL
[2022-11-08] MEDS: DEXTROSE 5%-LACTATED RINGERS 1,000 ML 125 ML IV (20:12)
[2022-11-08] MEDS: LORazepam 2 MG/ML VIAL IVP (22:52)
[2022-11-09] VITALS (60 sets, daily range): BP systolic 113–127; BP diastolic 64–85; PULSE 58–103; RESP 11–27; TEMP 37–38.2; TEMPC 36; O2SAT 96–100; BMI 21.9
[2022-11-09] MEDS: HYDROmorphone 2 MG/ML SYR IVP ×5 (02:26→20:54)
[2022-11-09] MEDS: DEXTROSE 5%-LACTATED RINGERS 1,000 ML 125 ML IV ×3 (04:08→17:13)
[2022-11-09] MEDS: LORazepam 2 MG/ML VIAL IVP ×5 (05:43→20:27)
[2022-11-09] MEDS: Sucralfate 1 GM TAB PO ×3 (05:43→23:33)
[2022-11-09 07:44] LABS: Absolute Lymphocyte Count 0.91 10^3/uL (1.2-3.4); Absolute Monocyte Count 0.35 10^3/uL (0.1-0.8); Absolute Neutrophil Count 5.33 10^3/uL (1.2-6.7); HCT 43.3 % (40.0-50.0); HGB 15.2 g/dL (13.5-17.5); Lymphocytes % 13.8; MCH 34.2 pg (27.0-33.0); MCHC 35.1 % (32.0-36.0); MCV 98 fL (80-95); MPV 10.2 fL (8.0-11.0); Monocytes % 5.3; Neutrophils % 80.9; RBC 4.44 10^6/uL (4.36-5.78); RDW 11.5 % (11.8-14.1); RDW-SD 41.5 fL; WBC 6.59 10^3/uL (4.4-10.8)
--- NOTE | 2022-11-09 08:00 | DI.MRI_ITS ---
Exam(s) MR ABDOMEN WO EXAM: MR ABDOMEN WO CLINICAL HISTORY: acute liver injury, pancreatic ductal dilatation TECHNIQUE: Multiplanar multisequence MRI of the Abdomen was performed. MRCP sequences also performed. COMPARISON: CT CT ABDOMEN PELVIS W from 11/08/2022 US US ABDOMEN from 11/08/2022 FINDINGS: Liver: Unremarkable. Gallbladder: Unremarkable. No wall thickening. Polyp visible on ultrasound is not visible by MRI. Bile Ducts: Unremarkable. Pancreas: Atrophic. Dilated pancreatic duct. Adrenals: Unremarkable. Kidneys: Unremarkable. Spleen: Unremarkable. Aorta: Unremarkable. Soft Tissues: Unremarkable. Bone: Unremarkable. Lymph Nodes: Unremarkable. Mesentery: No ascites. No focal fluid collection. Bowel: Wall thickening and dilatation of the 2nd portion of the duodenum. The prior CT showed of bow el wall thickening of loops of bowel in the left upper quadrant. wall thickening remains but there is decreased dilatation and fluid. IMPRESSION: No biliary dilatation. No liver abnormality. Polyp seen on ultrasound not identified on the current study. Atrophic pancreas with dilated duct consistent with sequela of prior episodes of pancreatitis. No ev idence of active inflammation. Wall thickening and dilatation of the descending duodenum. Mild wall thickening of left upper quadra nt jejunum. DATA REPOSITORY:
[2022-11-09 08:01] LABS: ALT 581 U/L (16-63); AST 521 U/L (15-37); Albumin 3.6 g/dL (3.4-5.0); Alkaline Phosphatase 221 U/L (46-116); Anion Gap 9.4 mmol/L (3-11); BUN 11 mg/dL (7-18); Bilirubin, Direct 0.3 mg/dL (0.0-0.2); Bilirubin, Total 1.4 mg/dL (0.2-1.0); CO2 25.6 mmol/L (21.0-32.0); CREATININE 0.8 mg/dL (0.70-1.30); Chloride 100 mmol/L (98-107); Estimated GFR 115.45 (mL/min/1.73m2); Glucose 194 mg/dL (74-106); PHOSPHORUS < 2.0 mg/dL (2.6-4.7); Potassium 3.7 mmol/L (3.5-5.1); Sodium 135 mmol/L (136-145); Total Protein 7.4 g/dL (6.4-8.2)
[2022-11-09 08:02] LABS: INR 0.9 (0.9-1.1); Prothrombin Time 9.6 sec (9.3-11.0)
[2022-11-09 08:03] LABS: Diff Comment Diff Reviewed; Platelet Count 69 10^3/uL (130-400); RBC Morphology Normal
[2022-11-09] MEDS: Normal Saline Flush 10 ML SYR IVP ×5 (08:08→21:11)
--- NOTE | 2022-11-09 08:26 | PDOC.CMIN ---
Date of service: 11/09/22 Time of Service: 08:26 Care Management Initial Assmt Initial Assessment REASON FOR HOSPITALIZATION:: acute liver injury PREVIOUS FUNCTIONAL STATUS/SOCIAL/FAMILY SUPPORTS:: Ayaan is currently homeless. CURRENT FUNCTIONAL STATUS:: CM was unable to meet with Ayaan today. This morning he was off of the unit having an MRI and this afternoon he was in the OR having a gastroscopy. He scored 11 on the CIWA scale this morning. He has been medicated with Ativan for withdrawal symptoms and hydromorphone for pain. ADVANCE DIRECTIVES:: none on file CODE STATUS:: Full Code INSURANCE COVERAGE / FINANCIAL ISSUES:: none PRIMARY CARE PHYSICIAN:: none POTENTIAL DISCHARGE NEEDS:: establish with PCP follow up plan of care PATIENT/FAMILY EDUCATION NEEDS:: Review of discharge instructions. limitations, activity, follow up plan, discuss Ask Me Three TRANSPORTATION:: likely RCT coordinated by CM PLAN:: Anticipate Ayaan will be discharged back to the community when medically cleared by provider. He needs to establish with a PCP and would likely benefit from substance use treatment. CM will follow and support discharge needs. PFSH All Active Problems (Updated 11/08/22 @ 19:33 by Rosy Baker MD) Thrombocytopenia (Chronic) Discharge planning issues (Acute) DVT prophylaxis (Acute) Opioid abuse (Acute) Dilated pancreatic duct (Acute) Chronic pancreatitis (Chronic) GI bleeding (Chronic) Gallbladder polyp (Acute) Transaminitis (Acute) Alcohol abuse (Chronic) IV drug user (Acute) Fatty liver (Acute) Hepatic dysfunction (Acute) Abdominal pain (Acute) Nausea & vomiting (Acute) Medical History (Updated 11/08/22 @ 19:33 by Rosy Baker MD) DKA (diabetic ketoacidosis) Pancreatitis Surgical History (Updated 11/08/22 @ 17:47 by Rosy Baker MD) No significant past surgical history Family History (Updated 11/08/22 @ 17:48 by Rosy Baker MD) Mother Heart disease Diabetes Father Heart disease Stroke Hypertension Self No problems noted. Sister Diabetes Hypertension Maternal Grandmother Cancer type Social History (Updated 11/08/22 @ 17:50 by Rosy Baker MD) Smoking/Tobacco Use Status: Current every day Tobacco Type: cigarettes Smoking packs per day: 1 Smoking cigarettes per day: 20.0 Years smoked: 30 Smoking pack-years: 30.00 Counseling given: provider counseling and support medications Smoking risk assessment performed?: Yes Alcohol Intake: current Alcohol Intake frequency: 3 or more drinks per day Alcohol type: hard liquor Counseling given: Yes Counseling provided: provider counseling Drug use: Daily Substance use type: marijuana, IV drugs and other Details: fentanyl Counseling given: Yes Counseling provided: provider counseling Housing: homeless Other: Lives alone in a tent in the [facility] Additional Social history: homeless, lives alone in a tent in the [facility]
[2022-11-09 09:52] LABS: Hemoglobin A1C 5.4 % (<5.7)
--- NOTE | 2022-11-09 09:53 | W.PM.PROGNOT ---
Date of Service Date of service: 11/09/22 Time of Service: 09:53 Assessment and Plan Assessment and plan (1) Transaminitis: Status: Acute Assessment and plan: In setting of alcohol abuse, gallbladder polyp, IVD use. Await hepatitis panel, autoimmune hepatitis panel, tick panel, HIV. C/s general surgery for an EGD. Monitor LFTs, INR. MRCP has been ordered due to the chronic pancreatitis and pancreatic ductal dilatation although based on his ultrasound and CT scan I do not not think this is acute cholecystitis. (2) GI bleeding: Status: Chronic Assessment and plan: NPO. Started on IV protonix + carafate. C/s general surgery. Hold chemical DVT ppx and NSAIDS. Trend H/H's. (3) Gallbladder polyp: Status: Acute Assessment and plan: as above. Will need follow-up imaging as an outpatient and discussion regarding surgical management (4) Dilated pancreatic duct: Status: Acute Assessment and plan: as above (5) Thrombocytopenia: Status: Chronic Assessment and plan: Suspect this is due to chronic EtOH use. Will check B12 level, tick panel. (6) Chronic pancreatitis: Status: Chronic Assessment and plan: W/ evidence of calcifications and dilated pancreatic duct on CT/US. Obtain MRCP. (7) Opioid abuse: Status: Acute Assessment and plan: Due to patient's severity of abdominal pain, we are holding his suboxone. His pain will be treated with IV dilaudid. Infectious hepatitis and HIV studies have been ordered as well as blood cultures all pending at this point (8) Alcohol abuse: Status: Chronic Assessment and plan: Monitor for signs of EtOH w/d in the ICU with prn IV ativan. Phenobarbital is contraindicated due to severity of the liver injury. (9) DVT prophylaxis: Status: Acute Assessment and plan: SCDs. Hold chemical DVT ppx in setting of GI bleeding (10) Discharge planning issues: Status: Acute Assessment and plan: Full code. Admit to ICU. Total Critical Care Time 30 minutes. He is homeless. Subjective Subjective Interval history since last seen: 37 yr old male w/ hx of alcoholism, alcohol withdrawal seizures, pancreatitis w/ 3 day os epigastric abdominal pains, nausea, vomiting, bilious vomiting. No hematochezia or hematemesis. Evaluation yesterday included abdominal ultrasound and CT scan of the abdomen pelvis. CT of the abdomen pelvis suggested evidence of chronic pancreatitis with multiple calcifications and pancreatic ductal dilatation but no pseudocyst. Pancreas is atrophic. Liver is mildly enlarged with mild fatty infiltration but no mass. Gallbladder and biliary tract showed no radiodense calculi or dilatation. Duodenum and proximal jejunum showed findings consistent with duodenitis and enteritis. Abdominal ultrasound showed atrophic pancreas with multiple calcifications pancreatic ductal dilatation and an 11 mm gallbladder polyp. Overnight patient was started on Carafate and Protonix. Stool was found to be positive for Hemoccult. Surgical consult has been requested Dr. Giuseppe Vicente. I have communicated with Dr. Vicente that the patient should undergo an EGD because of ongoing epigastric abdominal pain. Patient is also scheduled for MRCP although this does not appear to be secondary to an acute cholecystitis. Patient continues to have epigastric abdominal pain and nausea but no vomiting. Patient been receiving IV Dilaudid for his pain he has also been treated for alcohol withdrawal with Ativan per alcohol withdrawal protocol. Exam Narrative Exam Narrative: Ayaan is alert oriented person place time circumstance he has a ready complexion to his face. Lungs are clear to auscultation Heart is regular rate and rhythm Abdomen soft but tender with voluntary guarding no rebound tenderness. Particular tender in the epigastrium and left upper quadrant and right upper quadrant less so in the left lower and right lower quadrant. Objective Last Vital Signs Temp 37.9 C H 11/09/22 08:39 Pulse 66 11/09/22 08:36 Resp 20 11/09/22 08:36 BP 119/75 11/09/22 08:36 Pulse Ox 97 11/09/22 08:36 Laboratory Results - last 24 hr 11/08/22 11/08/22 11/08/22 10:30 11:53 11:53 WBC RBC Hgb Hct MCV MCH MCHC RDW Plt Count MPV Immature Gran % Neutrophils % Lymphocytes % Monocytes % Eosinophils % Basophils % Nucleated RBC % Absolute Neutrophils Absolute Lymphocytes Absolute Monocytes Absolute Eosinophils Absolute Basophils RBC Morphology PT INR APTT VBG Lactate 1.9 H Sodium Potassium Chloride Carbon Dioxide Anion Gap BUN Creatinine Est GFR (CKD-EPI 2020) Glucose Calcium Phosphorus Magnesium Iron TIBC Transferrin % Sat Total Bilirubin Conjugated Bilirubin AST ALT Alkaline Phosphatase Ammonia < 10 L C-Reactive Protein Total Protein Albumin Procalcitonin TSH Urine Color Urine Clarity Urine pH Ur Specific Dorothy Urine Protein Urine Ketones Urine Blood Urine Nitrite Urine Bilirubin Urine Urobilinogen Ur Leukocyte Esterase Urine RBC Urine WBC Ur Epithelial Cells Urine Crystals Urine Bacteria Urine Casts Urine Mucus Ur Culture Indicated? Urine Glucose Urine Opiates Screen Urine Methadone Screen Acetaminophen < 2 Ur Barbiturates Screen Ur Tricyclics Screen Ur Amphetamines Screen U Benzodiazepines Scrn Urine Cocaine Screen Ur THC Screen COVID-19 Source SARS-CoV-2 (PCR) Influenza Type A (PCR) Influenza Type B (PCR) RSV (PCR) Add-On Test Request Patient ABO/Rh Antibody Screen 11/08/22 11/08/22 11/08/22 11:53 12:14 14:19 WBC RBC Hgb Hct MCV MCH MCHC RDW Plt Count MPV Immature Gran % Neutrophils % Lymphocytes % Monocytes % Eosinophils % Basophils % Nucleated RBC % Absolute Neutrophils Absolute Lymphocytes Absolute Monocytes Absolute Eosinophils Absolute Basophils RBC Morphology PT 9.9 INR 1.0 APTT 24.2 VBG Lactate Sodium Potassium Chloride Carbon Dioxide Anion Gap BUN Creatinine Est GFR (CKD-EPI 2020) Glucose Calcium Phosphorus Magnesium Iron TIBC Transferrin % Sat Total Bilirubin Conjugated Bilirubin AST ALT Alkaline Phosphatase Ammonia C-Reactive Protein Total Protein Albumin Procalcitonin TSH Urine Color Urine Clarity Urine pH Ur Specific Dorothy Urine Protein Urine Ketones Urine Blood Urine Nitrite Urine Bilirubin Urine Urobilinogen Ur Leukocyte Esterase Urine RBC Urine WBC Ur Epithelial Cells Urine Crystals Urine Bacteria Urine Casts Urine Mucus Ur Culture Indicated? Urine Glucose Urine Opiates Screen Urine Methadone Screen Acetaminophen Ur Barbiturates Screen Ur Tricyclics Screen Ur Amphetamines Screen U Benzodiazepines Scrn Urine Cocaine Screen Ur THC Screen COVID-19 Source Nasopharynx SARS-CoV-2 (PCR) Negative Influenza Type A (PCR) Negative Influenza Type B (PCR) Negative RSV (PCR) Negative Add-On Test Request DONE Patient ABO/Rh Antibody Screen 11/08/22 11/08/22 11/08/22 14:19 14:19 15:10 WBC RBC Hgb Hct MCV MCH MCHC RDW Plt Count MPV Immature Gran % Neutrophils % Lymphocytes % Monocytes % Eosinophils % Basophils % Nucleated RBC % Absolute Neutrophils Absolute Lymphocytes Absolute Monocytes Absolute Eosinophils Absolute Basophils RBC Morphology PT INR APTT VBG Lactate Sodium Potassium Chloride Carbon Dioxide Anion Gap BUN Creatinine Est GFR (CKD-EPI 2020) Glucose Calcium Phosphorus Magnesium Iron 256 H TIBC 349 Transferrin % Sat 73 H Total Bilirubin Conjugated Bilirubin AST ALT Alkaline Phosphatase Ammonia C-Reactive Protein Total Protein Albumin Procalcitonin TSH 0.45 Urine Color Urine Clarity Urine pH Ur Specific Dorothy Urine Protein Urine Ketones Urine Blood Urine Nitrite Urine Bilirubin Urine Urobilinogen Ur Leukocyte Esterase Urine RBC Urine WBC Ur Epithelial Cells Urine Crystals Urine Bacteria Urine Casts Urine Mucus Ur Culture Indicated? Urine Glucose Urine Opiates Screen Positive A Urine Methadone Screen Negative Acetaminophen Ur Barbiturates Screen Negative Ur Tricyclics Screen Negative Ur Amphetamines Screen Negative U Benzodiazepines Scrn Negative Urine Cocaine Screen Negative Ur THC Screen Positive A COVID-19 Source SARS-CoV-2 (PCR) Influenza Type A (PCR) Influenza Type B (PCR) RSV (PCR) Add-On Test Request Patient ABO/Rh Antibody Screen 11/08/22 11/08/22 11/08/22 15:10 18:25 18:25 WBC RBC Hgb 14.2 D Hct 41.2 MCV MCH MCHC RDW Plt Count MPV Immature Gran % Neutrophils % Lymphocytes % Monocytes % Eosinophils % Basophils % Nucleated RBC % Absolute Neutrophils Absolute Lymphocytes Absolute Monocytes Absolute Eosinophils Absolute Basophils RBC Morphology PT INR APTT VBG Lactate Sodium Potassium Chloride Carbon Dioxide Anion Gap BUN Creatinine Est GFR (CKD-EPI 2020) Glucose Calcium Phosphorus Magnesium Iron TIBC Transferrin % Sat Total Bilirubin 1.6 H Conjugated Bilirubin 0.4 H AST 1106 H ALT 764 H Alkaline Phosphatase 234 H Ammonia C-Reactive Protein Total Protein 6.8 Albumin 3.3 L Procalcitonin TSH Urine Color Yellow Urine Clarity Clear Urine pH 5.5 Ur Specific Dorothy 1.020 Urine Protein 100 H Urine Ketones >=160 H Urine Blood Negative Urine Nitrite Negative Urine Bilirubin Small H Urine Urobilinogen 0.2 Ur Leukocyte Esterase Negative Urine RBC 0-2 Urine WBC 0-2 Ur Epithelial Cells Rare Urine Crystals Negative Urine Bacteria Negative Urine Casts Negative Urine Mucus Trace Ur Culture Indicated? No Urine Glucose Negative Urine Opiates Screen Urine Methadone Screen Acetaminophen Ur Barbiturates Screen Ur Tricyclics Screen Ur Amphetamines Screen U Benzodiazepines Scrn Urine Cocaine Screen Ur THC Screen COVID-19 Source SARS-CoV-2 (PCR) Influenza Type A (PCR) Influenza Type B (PCR) RSV (PCR) Add-On Test Request Patient ABO/Rh Antibody Screen 11/08/22 11/08/22 11/08/22 18:25 18:25 18:25 WBC RBC Hgb Hct MCV MCH MCHC RDW Plt Count MPV Immature Gran % Neutrophils % Lymphocytes % Monocytes % Eosinophils % Basophils % Nucleated RBC % Absolute Neutrophils Absolute Lymphocytes Absolute Monocytes Absolute Eosinophils Absolute Basophils RBC Morphology PT INR APTT VBG Lactate Sodium Potassium Chloride Carbon Dioxide Anion Gap BUN Creatinine Est GFR (CKD-EPI 2020) Glucose Calcium Phosphorus Magnesium Iron TIBC Transferrin % Sat Total Bilirubin Conjugated Bilirubin AST ALT Alkaline Phosphatase Ammonia C-Reactive Protein 0.42 H Total Protein Albumin Procalcitonin 0.5 TSH Urine Color Urine Clarity Urine pH Ur Specific Dorothy Urine Protein Urine Ketones Urine Blood Urine Nitrite Urine Bilirubin Urine Urobilinogen Ur Leukocyte Esterase Urine RBC Urine WBC Ur Epithelial Cells Urine Crystals Urine Bacteria Urine Casts Urine Mucus Ur Culture Indicated? Urine Glucose Urine Opiates Screen Urine Methadone Screen Acetaminophen Ur Barbiturates Screen Ur Tricyclics Screen Ur Amphetamines Screen U Benzodiazepines Scrn Urine Cocaine Screen Ur THC Screen COVID-19 Source SARS-CoV-2 (PCR) Influenza Type A (PCR) Influenza Type B (PCR) RSV (PCR) Add-On Test Request Patient ABO/Rh O Positive Antibody Screen NEGATIVE 11/09/22 11/09/22 11/09/22 07:30 07:30 07:30 WBC 6.59 RBC 4.44 Hgb 15.2 Hct 43.3 MCV 98 H MCH 34.2 H MCHC 35.1 RDW 11.5 L Plt Count 69 L MPV 10.2 Immature Gran % 0.0 Neutrophils % 80.9 Lymphocytes % 13.8 Monocytes % 5.3 Eosinophils % 0.0 Basophils % 0.0 Nucleated RBC % 0.0 Absolute Neutrophils 5.33 Absolute Lymphocytes 0.91 L Absolute Monocytes 0.35 Absolute Eosinophils 0.00 Absolute Basophils 0.00 RBC Morphology Normal PT 9.6 INR 0.9 APTT VBG Lactate Sodium 135 L Potassium 3.7 Chloride 100 Carbon Dioxide 25.6 Anion Gap 9.4 BUN 11 Creatinine 0.8 Est GFR (CKD-EPI 2020) 115.45 Glucose 194 H Calcium 9.0 Phosphorus < 2.0 L Magnesium 2.0 Iron TIBC Transferrin % Sat Total Bilirubin 1.4 H Conjugated Bilirubin 0.3 H AST 521 H ALT 581 H Alkaline Phosphatase 221 H Ammonia C-Reactive Protein Total Protein 7.4 Albumin 3.6 Procalcitonin TSH Urine Color Urine Clarity Urine pH Ur Specific Dorothy Urine Protein Urine Ketones Urine Blood Urine Nitrite Urine Bilirubin Urine Urobilinogen Ur Leukocyte Esterase Urine RBC Urine WBC Ur Epithelial Cells Urine Crystals Urine Bacteria Urine Casts Urine Mucus Ur Culture Indicated? Urine Glucose Urine Opiates Screen Urine Methadone Screen Acetaminophen Ur Barbiturates Screen Ur Tricyclics Screen Ur Amphetamines Screen U Benzodiazepines Scrn Urine Cocaine Screen Ur THC Screen COVID-19 Source SARS-CoV-2 (PCR) Influenza Type A (PCR) Influenza Type B (PCR) RSV (PCR) Add-On Test Request Patient ABO/Rh Antibody Screen PAWSS Have you Been Recently Intoxicated or Drunk Within the Last 30 days?: Yes Have you Ever Experienced Previous Episodes of Alcohol Withdrawal?: Yes Have you ever Experienced Delirium Tremens(DT)s?: Yes Have you ever Experienced Blackouts?: Yes Have you ever Combined Alcohol with other Downers within the last 90 days?: Yes Have you ever Combined Alcohol with any other Substance of Abuse during the last 90 days?: Yes Positive Blood Alcohol level on Presentation? [PCS.BAL]: Yes Evidence of Increased Autonomic Activity (i.e. HR>120, tremor, sweating, agitation, nausea)?: Yes Result: 8 Time Spent with Patient Time Spent with Patient: 25-34 minutes Time was spent: preparing to see the patient(eg.review tests), obtaining and/or reviewing separately otained hiistory, ordering medications,tests, procedures, referring, communicating with other health wound care coordinator (Indication Dr. Vicente general surgery), indepentently interpreting results, counseling the patient and care coordination
[2022-11-09] MEDS: Pantoprazole 40 MG VIAL 80 MG IVP ×2 (10:00→20:23)
[2022-11-09] MEDS: Multivitamin TAB 1 TAB PO (10:01)
[2022-11-09] MEDS: Thiamine 100 MG TAB PO (10:02)
[2022-11-09] MEDS: Folic Acid 1 MG TAB PO (10:02)
[2022-11-09 10:15] LABS: Lab Add On Test DONE
[2022-11-09 10:23] LABS: Lipase 24 U/L (16-77)
[2022-11-09 10:43] LABS: Hepatitis A Antibody IgM Negative (Negative); Hepatitis B Core Antibody Negative (Negative); Hepatitis B surface Ag Negative (Negative); Hepatitis C Ab w Rflx HCV PCR Negative (Negative)
--- NOTE | 2022-11-09 13:43 | W.ANESPRE ---
General Info Date of Service Date Performed: 11/09/22 Height: 5 ft 6 in Weight: 61.5 kg Body Mass Index (BMI): 21.9 Surgical Procedure: Operation Date: 11/09/22 13:35 Proposed Procedure Side Surgeon p Gastroscopy Giuseppe Vicente MD Meds Allergies and Home Medications Allergies Allergy/AdvReac Type Severity Reaction Status Date / Time No Known Allergies Allergy Unverified 11/08/22 07:38 Home Medication Medication Instructions Recorded buprenorphine 8 mg-naloxone 2 mg 2 film sublingual DAILY 11/08/22 sublingual film gabapentin 800 mg tablet 800 mg PO TID 11/08/22 Current Visit Medications: Current Medications Generic Name Dose Route Start Last Admin Trade Name Freq PRN Reason Stop Dose Admin Acetaminophen 0 mg 11/08/22 14:14 Acetaminophen 325 Mg Tab PO Q4H PRN PRN Al Hydrox/Mg Hydrox/Simethicone 30 ml 11/08/22 14:14 Mylanta Suspension 30 Ml Cup PO Q2H PRN PRN Dimethicone/Zinc Oxide 0 gm 11/08/22 14:08 Linda Protect Cream 142 Gm Tube TP PRN PRN Docusate Sodium 100 mg 11/08/22 14:14 Docusate Sodium 100 Mg Cap PO TID PRN PRN Folic Acid 1 mg 11/09/22 08:30 11/09/22 10:02 Folic Acid 1 Mg Tab PO 11/15/22 08:31 1 mg QAM BLSA Administration Hydromorphone HCl 2 - 4 mg 11/08/22 17:38 11/09/22 10:07 Hydromorphone 2 Mg/Ml Syr IVP 4 mg Q1H PRN PRN Administration Sodium Chloride 500 mls @ 0 mls/hr 11/08/22 14:13 Saline 500ml Bag IV PRN PRN As Directed Dextrose/Lactated Ringer's 1,000 mls @ 125 mls/hr 11/08/22 20:00 11/09/22 04:08 Dextrose 5%-Lr IV 125 mls/hr INFUSION BLAS Administration IV Miscellaneous Supplies 1 each 11/08/22 14:15 Iv Access IV DIRECTED BLAS Lorazepam 0 mg 11/08/22 14:14 11/08/22 16:07 Lorazepam 1 Mg Tab PO/SL 2 mg DIRECTED PRN Administration Lorazepam 0 mg 11/08/22 14:14 11/09/22 10:48 Lorazepam 2 Mg/Ml Vial IVP 3 mg DIRECTED PRN Administration Lorazepam 1 mg 11/08/22 17:38 Lorazepam 2 Mg/Ml Vial IVP Q2H PRN PRN Magnesium Hydroxide 30 ml 11/08/22 14:14 Milk Of Magnesia 30 Ml Cup PO DAILY PRN PRN Multivitamins 1 tab 11/09/22 08:30 11/09/22 10:01 Multivitamin Tab PO 11/15/22 08:31 1 tab QAM BLAS Administration Nicotine 21 mg 11/08/22 17:07 11/08/22 21:12 Nicotine 21 Mg/24 Hr Patch TD 21 mg DAILY PRN PRN Administration Ondansetron HCl 4 mg 11/08/22 16:27 Ondansetron 4 Mg/2 Ml Vial IVP Q6H PRN PRN Pantoprazole Sodium 80 mg 11/08/22 20:00 11/09/22 10:00 Pantoprazole 40 Mg Vial IVP 80 mg BID BLAS Administration Sodium Chloride 0 ml 11/08/22 14:13 11/09/22 10:11 Normal Saline Flush 10 Ml Syr IVP 40 ml PRN PRN Administration Sucralfate 1 gm 11/09/22 12:00 Sucralfate 1 Gm Tab PO Q6H BLAS Thiamine HCl 100 mg 11/09/22 08:30 11/09/22 10:02 Thiamine 100 Mg Tab PO 11/15/22 08:31 100 mg QAM BLAS Administration PFSH Active Problems Active Problems: Problem Status Onset Code Thrombocytopenia D69.6 Discharge planning issues Z02.9 DVT prophylaxis Z29.9 Opioid abuse F11.10 Dilated pancreatic duct K86.89 Chronic pancreatitis K86.1 GI bleeding K92.2 Gallbladder polyp K82.4 Transaminitis R74.01 Alcohol abuse F10.10 IV drug user F19.90 Fatty liver K76.0 Hepatic dysfunction K76.9 Abdominal pain R10.9 Nausea & vomiting R11.2 Medical History Medical History (Updated 11/08/22 @ 19:33 by Rosy Baker MD) DKA (diabetic ketoacidosis) Pancreatitis Surgical History Surgical History (Updated 11/08/22 @ 17:47 by Rosy Baker MD) No significant past surgical history Tobacco Smoking/Tobacco Use Status: Current every day Tobacco Type: cigarettes Smoking packs per day: 1 Smoking cigarettes per day: 20.0 Years smoked: 30 Smoking pack-years: 30.00 Counseling given: provider counseling and support medications Alcohol Alcohol Intake: current Alcohol intake frequency: 3 or more drinks per day Alcohol type: hard liquor Counseling provided: provider counseling Substance Use Substance use: Daily Substance use type: marijuana, IV drugs and other Details: fentanyl Counseling provided: provider counseling Vital Signs and Lab Results Vital Signs Most Recent Vital Signs in EMR: Most Recent Vital Signs Temp Pulse Resp BP Pulse Ox 37.9 C H 70 17 120/77 97 11/09/22 08:39 11/09/22 12:44 11/09/22 12:44 11/09/22 12:44 11/09/22 12:44 Point of Care Results Point of Care Results: Finger Stick Blood Glucose 108 11/08/22 08:00 Lab Results 11/09/22 07:30 11/09/22 07:30 Blood Type / Crossmatch: Patient ABO/Rh O Positive 11/08/22 Antibody Screen NEGATIVE 11/08/22 Complete Blood Count: White Blood Count 6.59 10^3/uL (4.4-10.8) 11/09/22 07:30 Red Blood Count 4.44 10^6/uL (4.36-5.78) 11/09/22 07:30 Hemoglobin 15.2 g/dL (13.5-17.5) 11/09/22 07:30 Hematocrit 43.3 % (40.0-50.0) 11/09/22 07:30 Platelet Count 69 10^3/uL (130-400) L 11/09/22 07:30 Venous Blood Lactate 1.9 mmol/L (0.6-1.4) H 11/08/22 11:53 Complete Metabolic Panel: Sodium 135 mmol/L (136-145) L 11/09/22 07:30 Potassium 3.7 mmol/L (3.5-5.1) 11/09/22 07:30 Chloride 100 mmol/L (98-107) 11/09/22 07:30 Carbon Dioxide 25.6 mmol/L (21.0-32.0) 11/09/22 07:30 BUN 11 mg/dL (7-18) 11/09/22 07:30 Creatinine 0.8 mg/dL (0.70-1.30) 11/09/22 07:30 Est GFR (CKD-EPI 2020) 115.45 (mL/min/1.73m2) 11/09/22 07:30 Magnesium 2.0 mg/dL (1.8-2.4) 11/09/22 07:30 Calcium 9.0 mg/dL (8.5-10.1) 11/09/22 07:30 Albumin 3.6 g/dL (3.4-5.0) 11/09/22 07:30 Glucose 194 mg/dL (74-106) H 11/09/22 07:30 Hemoglobin A1c 5.4 % (<5.7) 11/09/22 07:30 C-Reactive Protein 0.42 mg/dL (0.0-0.3) H 11/08/22 18:25 Liver Function Panel: Alanine Aminotransferase (ALT/SGPT) 581 U/L (16-63) H 11/09/22 07:30 Aspartate Amino Transf (AST/SGOT) 521 U/L (15-37) H 11/09/22 07:30 Coagulation Panel: INR International Normalized Ratio 0.9 (0.9-1.1) 11/09/22 07:30 Prothrombin Time 9.6 sec (9.3-11.0) 11/09/22 07:30 Activated Partial Thromboplast Time 24.2 sec (21.5-31.9) 11/08/22 11:53 Cardiac Panel: No Data to Display Arterial Blood Gas: No Data to Display Venous Blood Gas: No Data to Display Pancreas Panel: Lipase 24 U/L (16-77) 11/09/22 07:30 Thyroid Panel: Thyroid Stimulating Hormone (TSH) 0.45 uIU/mL (0.36-3.74) 11/08/22 14:19 Infectious Disease: Coronavirus (COVID-19)(PCR) Negative (Negative) 11/08/22 12:14 Coronavirus 2019 Source Nasopharynx 11/08/22 12:14 Influenza Virus Type A (PCR) Negative (Negative) 11/08/22 12:14 Influenza Virus Type B (PCR) Negative (Negative) 11/08/22 12:14 Respiratory Syncytial Virus (PCR) Negative (Negative) 11/08/22 12:14 HIV (1&2) Ag and Ab, 4th Generation Pending 11/09/22 07:30 Hepatitis B Surface Antigen Negative (Negative) 11/08/22 08:35 Hepatitis C Antibody Negative (Negative) 11/08/22 08:35 Blood Cultures: No Data to Display Toxicology Panel: Ethyl Alcohol Level 7.8 mg/dL (<10) 11/08/22 08:35 Urine Amphetamines Screen Negative (Negative) 11/08/22 15:10 Urine Benzodiazepines Screen Negative (Negative) 11/08/22 15:10 Urine Barbiturates Screen Negative (Negative) 11/08/22 15:10 Urine Cocaine Screen Negative (Negative) 11/08/22 15:10 Urine Methadone Screen Negative (Negative) 11/08/22 15:10 Urine Opiates Screen Positive (Negative) A 11/08/22 15:10 Ur Tricyclic Antidepressants Screen Negative (Negative) 11/08/22 15:10 Ur Tetrahydrocannabinol (THC) Scrn Positive (Negative) A 11/08/22 15:10 Imaging and Studies Imaging and Studies Study information below may be from another EMR and interpreted by another provider. Please see original notes in EMR for more complete details. EKG Summary: PATIENT NAME: Nino [place] #: [id number] ORDERING PROVIDER: Lucius Randolph NPACCOUNT #: [id number] PRIMARY CARE PROVIDER: CEDRIC DATE/TIME OF SERVICE: 11/08/22837 : 1985PERFORMING LOCATION: ICU APPROVED REPORT Exam: Resting ECG Reason for Exam: nausea vomitting Patient Location: E HR:69 bpm ECG Measurements Heart Rate 69 AXIS MT 139 P 57 QRSd 85 QRS 82 QT 421 T73 QTc 451 Conclusion Sinus rhythm...normal P axis, V-rate 60- 99 Narrow complex normal sinus rhythm at a rate of 69. Normal axis. Intervals within normal limits. Concave upsloping ST segments in V2 and V3. T wave inversion in aVL. No ST segment depressions. No acute injury pattern. No prior for comparison. Anesthesia Assessment and Plan Anesthesia History Personal History: No History of Anesthesia Complications Family History: No Family History of Anesthesia Complications Exercise Tolerance Exercise Tolerance: Metabolic Equivalents>4 Pertinent Negatives Pertinent Negatives: No Major Cardiovascular Symptoms or Complaints and No Major Pulmonary Symptoms or Complaints Cardiac & Pulmonary Exam Cardiac Exam: Normal S1/S2 Heart Sounds Pulmonary Exam: Clear Bilateral Breath Sounds and Active Dry Cough Cardiac and Pulmonary Comment:: Uses inhaler one to two times a week. Implantable Cardiac Device Does patient have a Pacemaker or an ICD?: No Airway Exam Known Difficult Airway: No Mallampati Class: 2 Mouth Opening: Normal (> 3cm) Thyromental Distance: Greater than 3 cm Facial Hair: Full [place] Neck Range of Motion: Full ROM Neck Circumference: Normal Teeth Condition: Generalized Poor Dentition, Loose or Chipped, Dental Caries and Advised tooth loss possible given current condition (indicate tooth) (numerous) ASA Classification ASA Score: ASA 3 Emergency Case?: No NPO Status NPO Status: NPO Clears >2 hours, Solids >8 hours Anesthesia Plan Resuscitation Status: Full Code Anesthesia Technique: General Anesthesia Airway Planned: Natural Airway Monitors Used: Standard Monitors
[2022-11-09] MEDS: Lactated Ringers 1,000 ML 30 ML IV (14:35)
--- NOTE | 2022-11-09 15:14 | W.ANESPOSTOP ---
Postoperative Evaluation Date, Time and Location Date Performed: 11/09/22 Time Performed: 15:14 Patient Location: Intensive Care Unit Vital Signs Most Recent Imported Vital Signs: Most Recent Vital Signs Temp Pulse Resp BP Pulse Ox 37.6 C H 94 H 12 125/72 99 11/09/22 13:58 11/09/22 13:43 11/09/22 13:43 11/09/22 13:43 11/09/22 13:43 Most Recent Manually Entered Vital Signs: Adult Blood Pressure: 120/85 Heart Rate: 71 Respirations: 20 Oxygen Saturation (%): 99 Temperature (C): 36 C Pain Score (0-10 Scale): 5 Pain Score Most Recent Pain Score: Most Recent Pain Score Pain Level 7 11/09/22 13:58 Assessment Mental Status: Arousable with meaningful communication Airway and Respiratory Function: Patent airway with normal (patient baseline) respiratory exam Cardiovascular Function: Hemodynamically Stable Hydration Status: Adequately Hydrated Nausea & Vomiting: No Nausea or Vomiting Pain: Pain is tolerable per patient Peripheral Nerve Block: Patient did not receive a nerve block
--- NOTE | 2022-11-09 16:29 | SCONE_ITS ---
Date of service: 11/09/22 Time of Service: 10:30 Assessment and Plan Assessment and plan (1) Abdominal pain: Status: Acute Assessment and plan: Obviously has multiple risk factors for gastritis given his history. Exam also seems consistent with gastritis or peptic ulcer disease. We talked about the risks and benefits of the procedure, and he was able to provide informed consent. We have made arrangements to proceed with EGD this afternoon. History of Present Illness History of Present Illness Chief Complaint: Abdominal pain Narrative: Ayaan is 37 years old. He is got a past medical history that is most significant for chronic alcoholism and multiple episodes of pancreatitis. He comes to the emergency department last night complaining of abdominal pain. It is a sharp and stabbing pain in the midportion of his epigastrium. It radiates across the upper abdomen and back. Is been associated with nausea, and several episodes of vomiting. In the emergency department, he was noted to have elevation of his liver function tests, and total bilirubin. On physical exam he was found to be Gastroccult positive. I been consulted for EGD. Consults Consult date: 11/09/22 Requesting physician: Rosy Baker Review of Systems Constitutional Constitutional: Reports body ache(s), Reports difficulty sleeping, Reports fatigue, Reports malaise, Reports poor appetite and Reports weight loss Eyes Eyes: Reports system reviewed and no additional complaints, except as documented ENT Ears, Nose, Mouth, and Throat: Reports system reviewed and no additional complaints, except as documented Cardiovascular Cardiovascular: Denies chest pain and Denies dyspnea Respiratory Respiratory: Denies chest congestion, Reports cough and Denies dyspnea Gastrointestinal Gastrointestinal: Reports abdominal pain, Reports belching, Denies coffee ground emesis, Reports cramping, Reports nausea, Reports vomiting and Denies hematemesis Genitourinary Genitourinary: Reports system reviewed and no additional complaints, except as documented Musculoskeletal Musculoskeletal: Reports back pain and Reports myalgias Neurologic Neurologic: Reports system reviewed and no additional complaints, except as documented Psychiatric Psychiatric: Reports depression Endocrine Endocrine: Reports fatigue Hematologic/Lymphatic Hematologic/Lymphatic: Denies easy bleeding and Denies easy bruising PFSH All Active Problems (Updated 11/08/22 @ 19:33 by Rosy Baker MD) Thrombocytopenia (Chronic) Discharge planning issues (Acute) DVT prophylaxis (Acute) Opioid abuse (Acute) Dilated pancreatic duct (Acute) Chronic pancreatitis (Chronic) GI bleeding (Chronic) Gallbladder polyp (Acute) Transaminitis (Acute) Alcohol abuse (Chronic) IV drug user (Acute) Fatty liver (Acute) Hepatic dysfunction (Acute) Abdominal pain (Acute) Nausea & vomiting (Acute) Medical History (Updated 11/08/22 @ 19:33 by Rosy Baker MD) DKA (diabetic ketoacidosis) Pancreatitis Surgical History (Updated 11/08/22 @ 17:47 by Rosy Baker MD) No significant past surgical history Family History (Updated 11/08/22 @ 17:48 by Rosy Baker MD) Mother Heart disease Diabetes Father Heart disease Stroke Hypertension Self No problems noted. Sister Diabetes Hypertension Maternal Grandmother Cancer type Social History (Updated 11/08/22 @ 17:50 by Rosy Baker MD) Smoking/Tobacco Use Status: Current every day Tobacco Type: cigarettes Smoking packs per day: 1 Smoking cigarettes per day: 20.0 Years smoked: 30 Smoking pack-years: 30.00 Counseling given: provider counseling and support medications Smoking risk assessment performed?: Yes Alcohol Intake: current Alcohol Intake frequency: 3 or more drinks per day Alcohol type: hard liquor Counseling given: Yes Counseling provided: provider counseling Drug use: Daily Substance use type: marijuana, IV drugs and other Details: fentanyl Counseling given: Yes Counseling provided: provider counseling Housing: homeless Other: Lives alone [facility] a [facility] Additional Social history: homeless, lives alone in a tent in [facility] Exam Const General: ill appearing and lethargic Orientation: awake and oriented x3 HENMT Head: normal to inspection Eyes General: appearance normal, both eyes and all related structures Neck Neck: normal visual inspection and full ROM Resp Effort & Inspection: cough Auscultation: no rhonchi and no wheezes Cardio Rate: regular rate Rhythm: regular rhythm GI Inspection: normal to inspection and non-distended Palpation: soft, no hernias and tender Percussion: dullness to percussion Auscultation: hypoactive bowel sounds Extrem Right lower extremity: no edema Left lower extremity: no edema Results Last Vital Signs Temp 98.6 F 11/09/22 15:05 Pulse 64 11/09/22 16:00 Resp 16 11/09/22 16:00 BP 127/78 11/09/22 16:00 Pulse Ox 99 11/09/22 16:00 Labs 05/15/23 07:30 11/09/22 07:30 Labs: Laboratory Results - last 24 hr 11/08/22 11/08/22 11/08/22 08:35 18:25 18:25 WBC RBC Hgb 14.2 D Hct 41.2 MCV MCH MCHC RDW Plt Count MPV Immature Gran % Neutrophils % Lymphocytes % Monocytes % Eosinophils % Basophils % Nucleated RBC % Absolute Neutrophils Absolute Lymphocytes Absolute Monocytes Absolute Eosinophils Absolute Basophils RBC Morphology PT INR Sodium Potassium Chloride Carbon Dioxide Anion Gap BUN Creatinine Est GFR (CKD-EPI 2020) Glucose Hemoglobin A1c Calcium Phosphorus Magnesium Total Bilirubin 1.6 H Conjugated Bilirubin 0.4 H AST 1106 H ALT 764 H Alkaline Phosphatase 234 H C-Reactive Protein Total Protein 6.8 Albumin 3.3 L Lipase Procalcitonin Hepatitis A IgM Ab Negative Hep Bs Antigen Negative Hep B Core Total Ab Negative Hepatitis C Antibody Negative Add-On Test Request Patient ABO/Rh Antibody Screen 11/08/22 11/08/22 11/08/22 18:25 18:25 18:25 WBC RBC Hgb Hct MCV MCH MCHC RDW Plt Count MPV Immature Gran % Neutrophils % Lymphocytes % Monocytes % Eosinophils % Basophils % Nucleated RBC % Absolute Neutrophils Absolute Lymphocytes Absolute Monocytes Absolute Eosinophils Absolute Basophils RBC Morphology PT INR Sodium Potassium Chloride Carbon Dioxide Anion Gap BUN Creatinine Est GFR (CKD-EPI 2020) Glucose Hemoglobin A1c Calcium Phosphorus Magnesium Total Bilirubin Conjugated Bilirubin AST ALT Alkaline Phosphatase C-Reactive Protein 0.42 H Total Protein Albumin Lipase Procalcitonin 0.5 Hepatitis A IgM Ab Hep Bs Antigen Hep B Core Total Ab Hepatitis C Antibody Add-On Test Request Patient ABO/Rh O Positive Antibody Screen NEGATIVE 11/09/22 11/09/22 11/09/22 07:30 07:30 07:30 WBC 6.59 RBC 4.44 Hgb 15.2 Hct 43.3 MCV 98 H MCH 34.2 H MCHC 35.1 RDW 11.5 L Plt Count 69 L MPV 10.2 Immature Gran % 0.0 Neutrophils % 80.9 Lymphocytes % 13.8 Monocytes % 5.3 Eosinophils % 0.0 Basophils % 0.0 Nucleated RBC % 0.0 Absolute Neutrophils 5.33 Absolute Lymphocytes 0.91 L Absolute Monocytes 0.35 Absolute Eosinophils 0.00 Absolute Basophils 0.00 RBC Morphology Normal PT 9.6 INR 0.9 Sodium 135 L Potassium 3.7 Chloride 100 Carbon Dioxide 25.6 Anion Gap 9.4 BUN 11 Creatinine 0.8 Est GFR (CKD-EPI 2020) 115.45 Glucose 194 H Hemoglobin A1c Calcium 9.0 Phosphorus < 2.0 L Magnesium 2.0 Total Bilirubin 1.4 H Conjugated Bilirubin 0.3 H AST 521 H ALT 581 H Alkaline Phosphatase 221 H C-Reactive Protein Total Protein 7.4 Albumin 3.6 Lipase Procalcitonin Hepatitis A IgM Ab Hep Bs Antigen Hep B Core Total Ab Hepatitis C Antibody Add-On Test Request Patient ABO/Rh Antibody Screen 11/09/22 11/09/22 11/09/22 07:30 07:30 07:30 WBC RBC Hgb Hct MCV MCH MCHC RDW Plt Count MPV Immature Gran % Neutrophils % Lymphocytes % Monocytes % Eosinophils % Basophils % Nucleated RBC % Absolute Neutrophils Absolute Lymphocytes Absolute Monocytes Absolute Eosinophils Absolute Basophils RBC Morphology PT INR Sodium Potassium Chloride Carbon Dioxide Anion Gap BUN Creatinine Est GFR (CKD-EPI 2020) Glucose Hemoglobin A1c 5.4 Calcium Phosphorus Magnesium Total Bilirubin Conjugated Bilirubin AST ALT Alkaline Phosphatase C-Reactive Protein Total Protein Albumin Lipase 24 Procalcitonin Hepatitis A IgM Ab Hep Bs Antigen Hep B Core Total Ab Hepatitis C Antibody Add-On Test Request DONE Patient ABO/Rh Antibody Screen Imaging Abdomen CT scan report/results: report reviewed and image reviewed CT scan - pelvis: report reviewed and image reviewed
[2022-11-09 17:43] LABS: Lactate 2.1 mmol/L (0.6-1.4)
[2022-11-09 17:45] LABS: Abs Immature Grans 0.01 10^3/uL (0.0-0.06); Absolute Basophil Count 0.01 10^3/uL (0.0-0.2); Absolute Lymphocyte Count 1.17 10^3/uL (1.2-3.4); Absolute Monocyte Count 0.27 10^3/uL (0.1-0.8); Absolute Neutrophil Count 3.96 10^3/uL (1.2-6.7); Basophils % 0.2; HCT 42.3 % (40.0-50.0); HGB 14.7 g/dL (13.5-17.5); Immature Grans % 0.2; Lymphocytes % 21.6; MCH 34.8 pg (27.0-33.0); MCHC 34.8 % (32.0-36.0); MCV 100 fL (80-95); MPV 10.4 fL (8.0-11.0); RBC 4.23 10^6/uL (4.36-5.78); RDW 11.5 % (11.8-14.1); RDW-SD 42.1 fL; WBC 5.42 10^3/uL (4.4-10.8)
[2022-11-09] MEDS: VANCOMYCIN/WATER (PEG) 1.75 GM/350 ML BAG IV (17:50)
[2022-11-09 17:53] LABS: C-Reactive Protein 0.14 mg/dL (0.0-0.3)
[2022-11-09 18:05] LABS: Platelet Count 55 10^3/uL (130-400)
[2022-11-09] MEDS: Gabapentin 800 MG TAB PO (20:06)
[2022-11-09] MEDS: Amoxicillin 500 MG CAP 1000 MG PO (20:06)
[2022-11-09] MEDS: Nicotine 21 MG/24 HR PATCH TD (20:23)
[2022-11-10] VITALS (23 sets, daily range): BP systolic 104–154; BP diastolic 65–102; PULSE 54–103; RESP 15–26; TEMP 37.2–37.6; O2SAT 97–100
[2022-11-10] MEDS: HYDROmorphone 2 MG/ML SYR IVP ×2 (00:23→04:04)
[2022-11-10] MEDS: LORazepam 1 MG TAB PO/SL ×5 (00:24→22:44)
[2022-11-10] MEDS: DEXTROSE 5%-LACTATED RINGERS 1,000 ML 125 ML IV (01:30)
[2022-11-10] MEDS: LORazepam 2 MG/ML VIAL IVP ×3 (03:18→05:06)
[2022-11-10] MEDS: VANCOMYCIN/WATER (PEG) 1 GM/200 ML BAG IV ×2 (05:19→23:15)
--- NOTE | 2022-11-10 08:13 | CMPROGNOTE_ITS ---
Date of service: 11/10/22 Time of Service: 08:13 Care Management Progress Note Progress Note Text Progress Note Text: S/O:Ayaan remains in the ICU. When CM met with him, he was curled up in the bed. He stated that he was in a lot of pain and was unsure how much he would be able to converse. Ayaan was unable to provide CM with his social security number to verify Medicaid coverage. He stated that he lost all of his papers. When asked about relatives Ayaan stated that both of his parents have as well as one of his sisters. He has another sister in [place], but they do not speak.Ayaan stated that he was born in [place], [place] and has been in [place] for 7 years. He is not employed. CM reached out to [employer] to see if there is another avenue to pursue to verify his insurance. Clinically, Ayaan is a little better today. He received a total of 16 mgs of Ativan yesterday following the CIWA protocol. Ayaan continues to show symptoms of withdrawal and he has been medicated several times today for CIWA scores of 13, 20, 12 and 16. A: Ayaan is a 37 year old man admitted on 11/08/22 with acute liver injury P:?Anticipate Ayaan will be discharged back to the community when medically cleared by provider. He needs to establish with a PCP and would likely benefit from substance use treatment. CM will follow and support discharge needs.
[2022-11-10] MEDS: Sucralfate 1 GM TAB PO ×3 (08:32→17:52)
[2022-11-10] MEDS: Pantoprazole 40 MG VIAL 80 MG IVP ×2 (08:32→22:38)
[2022-11-10] MEDS: Normal Saline Flush 10 ML SYR IVP (08:34)
[2022-11-10 08:49] LABS: Abs Immature Grans 0.01 10^3/uL (0.0-0.06); Absolute Lymphocyte Count 1.09 10^3/uL (1.2-3.4); Absolute Monocyte Count 0.29 10^3/uL (0.1-0.8); Absolute Neutrophil Count 2.84 10^3/uL (1.2-6.7); HCT 40.5 % (40.0-50.0); HGB 14.2 g/dL (13.5-17.5); Immature Grans % 0.2; Lymphocytes % 25.8; MCH 34.5 pg (27.0-33.0); MCHC 35.1 % (32.0-36.0); MCV 98 fL (80-95); Monocytes % 6.9; Neutrophils % 67.1; RBC 4.12 10^6/uL (4.36-5.78); RDW 11.5 % (11.8-14.1); RDW-SD 42.2 fL; WBC 4.23 10^3/uL (4.4-10.8)
[2022-11-10] MEDS: Folic Acid 1 MG TAB PO (08:51)
[2022-11-10] MEDS: Gabapentin 800 MG TAB PO ×3 (08:51→22:45)
[2022-11-10] MEDS: Clarithromycin 500 MG TAB PO ×2 (08:51→22:43)
[2022-11-10] MEDS: Multivitamin TAB 1 TAB PO (08:51)
[2022-11-10] MEDS: Amoxicillin 500 MG CAP 1000 MG PO ×2 (08:51→22:43)
[2022-11-10] MEDS: Thiamine 100 MG TAB PO (08:52)
[2022-11-10 09:05] LABS: Diff Comment Diff Reviewed; RBC Morphology Normal
[2022-11-10 09:08] LABS: ALT 325 U/L (16-63); AST 187 U/L (15-37); Albumin 3.1 g/dL (3.4-5.0); Alkaline Phosphatase 155 U/L (46-116); Anion Gap 6.9 mmol/L (3-11); BUN 4 mg/dL (7-18); Bilirubin, Direct 0.2 mg/dL (0.0-0.2); Bilirubin, Total 0.8 mg/dL (0.2-1.0); CO2 24.1 mmol/L (21.0-32.0); CREATININE 0.7 mg/dL (0.70-1.30); Calcium 8.6 mg/dL (8.5-10.1); Chloride 105 mmol/L (98-107); Glucose 111 mg/dL (74-106); Potassium 3.6 mmol/L (3.5-5.1); Sodium 136 mmol/L (136-145); Total Protein 6.5 g/dL (6.4-8.2)
--- NOTE | 2022-11-10 09:09 | W.NUTRFU ---
Date of service: 11/10/22 Time of Service: 09:09 Nutrition Note NOTE: Ayaan was admitted with abdominal pain with long standing hx of alcoholism, reoccurent pancreatitis and now dx with duodenitis. Diet advanced last night to full liquid and to be advanced as tolerated. Repleted with MVI, thiamin, folate. BMI wnl. Not considered at nutritional risk. Will continue to monitor. Time Spent in Nutritional Counseling and Treatment: 0
[2022-11-10 09:39] LABS: Procalcitonin 0.1 ng/mL
--- NOTE | 2022-11-10 09:57 | PGE_ITS ---
Date of Service Date of service: 11/10/22 Time of Service: 09:57 Assessment and Plan Assessment and plan (1) GI bleeding: Status: Chronic Assessment and plan: patient has not exhibited any hematemesis nor any hematochezia. he had some dark stools overnight but per his nurse they were heme negative , although earlier in this admission his stools were documented to be positive for occult blood. Dr. Vicente did not see any active bleeding but the patient has severe duodenitis and portal hypertensive gastropathy changes. Patient is on protonix 80 mg bid along w/ carafate 1 gm po qid and I have empirically started him on treatment for H. pylori including biaxin, bismuth and amoxicillin. Critical care time spent interviewing and examining the patient, reviewing studies, discussing case with patient's nurse and consulting physicians was 30 minutes (2) Portal hypertensive gastropathy: Status: Acute Assessment and plan: as above. Patient informed of his diagnosis and treatment plan. He needs to quit drinking alcohol. No varices were seen on yesterday's EGD (3) Duodenitis: Status: Acute Assessment and plan: as above (4) Transaminitis: Status: Acute Assessment and plan: no masses on MRCP and no evidence for biliary obstruction. His transamintitis is secondary to his alcohol. His LFT are slowly improving. His infectious hepatitis panel was neg. However his autoimmune panel and tick panel aer still pending. (5) Gallbladder polyp: Status: Acute Assessment and plan: polyp not seen on MRCP yesterday. recommend follow up imaging as outpatient w/ surgical follow up (6) Dilated pancreatic duct: Status: Acute Assessment and plan: sequelae of his chronic pancratitis (7) Thrombocytopenia: Status: Chronic Assessment and plan: secondary to alcoholism. (8) Chronic pancreatitis: Status: Chronic Assessment and plan: W/ evidence of calcifications and dilated pancreatic duct on CT/US. MRCP showed the same. Qualifiers: Pancreatitis type: alcohol induced Qualified Code(s): K86.0 - Alcohol- induced chronic pancreatitis (9) Opioid abuse: Status: Acute Assessment and plan: Blood culture was positive for gram positive cocci on one bottle from admission. Repeat blood cultures were obtained yesterday and are pending. He is on Vancomycin pending results of his repeat cultures. I have switched his iv dilaudid to oral dilaudid although his abdominal pains are out of proportion to his EGD findings and he is on a good regimen for treating his PUD. he shold go back on his suboxone therapy. Pharmacy has had trouble verifying his provider. He reported that he gets his meds through [facility] but when the pharmacist called the one in [place] she was told he is not a client of theirs. (10) Alcohol abuse: Status: Chronic Assessment and plan: Patient has been scoring up to 20 on his CIWA scores overnight and has required up to 16 mg Ativan total since yesterday evening at 7 pm. Due to his requirement for iv ativan, I have chosen to keep in ICU status. continue thiamine and MVS (11) Alcohol withdrawal: Status: Acute Assessment and plan: as above (12) DVT prophylaxis: Status: Acute Assessment and plan: SCDs. Hold chemical DVT ppx in setting of GI bleeding (13) Discharge planning issues: Status: Acute Assessment and plan: Patient is homeless. He still requires hospitalization for his alcohol withdrawal. CM to provide patient on info for obtaining transitional housing. Subjective Subjective Interval history since last seen: Patient still complaining of epigastric abdominal pain. EGD yesterday demonstrated severe gastritis and duodenitis per Dr. Vicente. He did not obtain bx for H pylori d/t patient's platelets being low at 50,000 yesterday. However he recommended initiation of empiric treatment for H. pylori. As the patient is already on high dose PPI it would be useless to obtain urea breath test or stool for H. pylori antigen. I have put him on Biaxin and amoxacillin along w/ bismuth and he remains on protonix 80 mg bid along w/ carafate. I think after two weeks the protonix can be stepped back to 40 mg bid. Exam Narrative Exam Narrative: Patient sitting up at the bedside requesting more solid foods. He is sitting looking at his phone when I spoke w/ him. He did not look at me and when told that I am stopping his iv dilaudid he proceeded to lie down in the position and began crying that he is still in pain. I have explained to him that his PUD does not require parenteral narcotics. His lipase is normal therefore, he does not have acute pancreatitis although he has evidence of chronic pancreatitis w/ pancreatic calcifications. MRI also did not show any acute inflammatory process around the pancreas but demonstrated atrophic pancreas w/ dilated pancreatic duct, no mass and no biliary dilatation. Abdomen: soft, but tender over epigastrium; bowel sounds present Objective Last Vital Signs Temp 37.2 C 11/10/22 09:41 Pulse 100 H 11/10/22 09:00 Resp 15 11/10/22 09:00 BP 130/87 11/10/22 09:00 Pulse Ox 97 11/10/22 06:00 Laboratory Results - last 24 hr 11/08/22 11/09/22 11/09/22 08:35 07:30 07:30 WBC RBC Hgb Hct MCV MCH MCHC RDW Plt Count MPV Immature Gran % Neutrophils % Lymphocytes % Monocytes % Eosinophils % Basophils % Nucleated RBC % Absolute Neutrophils Absolute Lymphocytes Absolute Monocytes Absolute Eosinophils Absolute Basophils RBC Morphology VBG Lactate Sodium Potassium Chloride Carbon Dioxide Anion Gap BUN Creatinine Est GFR (CKD-EPI 2020) Glucose Calcium Total Bilirubin Conjugated Bilirubin AST ALT Alkaline Phosphatase C-Reactive Protein Total Protein Albumin Lipase 24 Procalcitonin Hepatitis A IgM Ab Negative Hep Bs Antigen Negative Hep B Core Total Ab Negative Hepatitis C Antibody Negative Add-On Test Request DONE 11/09/22 11/09/22 11/09/22 17:30 17:30 17:30 WBC 5.42 RBC 4.23 L Hgb Cancelled 14.7 Hct Cancelled 42.3 MCV 100 H MCH 34.8 H MCHC 34.8 RDW 11.5 L Plt Count 55 L MPV 10.4 Immature Gran % 0.2 Neutrophils % 73.0 Lymphocytes % 21.6 Monocytes % 5.0 Eosinophils % 0.0 Basophils % 0.2 Nucleated RBC % 0.0 Absolute Neutrophils 3.96 Absolute Lymphocytes 1.17 L Absolute Monocytes 0.27 Absolute Eosinophils 0.00 Absolute Basophils 0.01 RBC Morphology VBG Lactate Sodium Potassium Chloride Carbon Dioxide Anion Gap BUN Creatinine Est GFR (CKD-EPI 2020) Glucose Calcium Total Bilirubin Conjugated Bilirubin AST ALT Alkaline Phosphatase C-Reactive Protein 0.14 Total Protein Albumin Lipase Procalcitonin Hepatitis A IgM Ab Hep Bs Antigen Hep B Core Total Ab Hepatitis C Antibody Add-On Test Request 11/09/22 11/10/22 11/10/22 17:30 08:34 08:42 WBC 4.23 L RBC 4.12 L Hgb 14.2 Hct 40.5 MCV 98 H MCH 34.5 H MCHC 35.1 RDW 11.5 L Plt Count MPV Immature Gran % 0.2 Neutrophils % 67.1 Lymphocytes % 25.8 Monocytes % 6.9 Eosinophils % 0.0 Basophils % 0.0 Nucleated RBC % 0.0 Absolute Neutrophils 2.84 Absolute Lymphocytes 1.09 L Absolute Monocytes 0.29 Absolute Eosinophils 0.00 Absolute Basophils 0.00 RBC Morphology Normal VBG Lactate 2.1 H Sodium 136 Potassium 3.6 Chloride 105 Carbon Dioxide 24.1 Anion Gap 6.9 BUN 4 L Creatinine 0.7 Est GFR (CKD-EPI 2020) 120.20 Glucose 111 H Calcium 8.6 Total Bilirubin 0.8 Conjugated Bilirubin 0.2 AST 187 H ALT 325 H Alkaline Phosphatase 155 H C-Reactive Protein Total Protein 6.5 Albumin 3.1 L Lipase Procalcitonin Hepatitis A IgM Ab Hep Bs Antigen Hep B Core Total Ab Hepatitis C Antibody Add-On Test Request 11/10/22 08:42 WBC RBC Hgb Hct MCV MCH MCHC RDW Plt Count MPV Immature Gran % Neutrophils % Lymphocytes % Monocytes % Eosinophils % Basophils % Nucleated RBC % Absolute Neutrophils Absolute Lymphocytes Absolute Monocytes Absolute Eosinophils Absolute Basophils RBC Morphology VBG Lactate Sodium Potassium Chloride Carbon Dioxide Anion Gap BUN Creatinine Est GFR (CKD-EPI 2020) Glucose Calcium Total Bilirubin Conjugated Bilirubin AST ALT Alkaline Phosphatase C-Reactive Protein Total Protein Albumin Lipase Procalcitonin 0.1 Hepatitis A IgM Ab Hep Bs Antigen Hep B Core Total Ab Hepatitis C Antibody Add-On Test Request PAWSS Have you Been Recently Intoxicated or Drunk Within the Last 30 days?: Yes Have you Ever Experienced Previous Episodes of Alcohol Withdrawal?: Yes Have you ever Experienced Delirium Tremens(DT)s?: Yes Have you ever Experienced Blackouts?: Yes Have you ever Combined Alcohol with other Downers within the last 90 days?: Yes Have you ever Combined Alcohol with any other Substance of Abuse during the last 90 days?: Yes Positive Blood Alcohol level on Presentation? [PCS.BAL]: Yes Evidence of Increased Autonomic Activity (i.e. HR>120, tremor, sweating, agitation, nausea)?: Yes Result: 8 Time Spent with Patient Time Spent with Patient: 25-34 minutes Time was spent: preparing to see the patient(eg.review tests), ordering medications,tests, procedures, referring, communicating with other health pharmacist critical care, indepentently interpreting results, counseling the patient and care coordination
[2022-11-10 09:59] LABS: HIV-1/2 Ag & Ab Screen Negative (Negative)
[2022-11-10] MEDS: HYDROmorphone 2 MG TAB PO (10:13)
[2022-11-10 11:08] LABS: Vitamin B12 804 pg/mL (193-986)
[2022-11-10 11:44] LABS: Lyme Ab w Rflx to Lyme Confirm Positive (Negative)
[2022-11-10] MEDS: Acetaminophen 325 MG TAB PO ×2 (11:53→17:52)
--- NOTE | 2022-11-10 11:55 | NUR.NOTE ---
States he vomited up his lunch in the commode. Moderate soft stool noted with toilet paper and saliva. No undigested food matter noted. States he vomited up all his pills with it. Increased temperature noted. Tylenol and carafate given. States he wants to leave and get a drink because he can't stand the detox and he can get Tylenol on the street.Nursing Note:
[2022-11-10 13:12] LABS: Lyme IgG Ab Positive (Negative); Lyme IgM Ab Negative (Negative)
--- NOTE | 2022-11-10 14:54 | NUR.NOTE ---
Episode of increased restlessness with crying and rocking in bed resolved spontaneously/sleeping at present. Nursing Note:
--- NOTE | 2022-11-10 16:17 | W.PM.PROGNOT ---
Date of Service Date of service: 11/10/22 Time of Service: 16:17 Assessment and Plan Assessment and plan (1) Duodenitis: Status: Acute Assessment and plan: Mr. Madrid is a 37 year old with alcoholic liver insufficiency, hx of pancreatitis who was admitted for abdominal pain and abnormal LFT's. Once admitted he had one bout of hematemesis. EGD revealed duodenitis and stigmata of portal hypertensive gastropathy. He is being treated with Protonix IV 80 mg BID, Carafate and H. pylori triple treatment. I no drop in his Hgb tomorrow I think it would be OK to switch him from IV to po protonix. I would decrease to 40 mg BID. Continue Carafate and H. pylori treatment (2) Portal hypertensive gastropathy: Status: Acute (3) Alcohol withdrawal: Status: Acute Subjective Subjective Interval history since last seen: Patient is sleeping soundly. He doesnt wake up when I push on his abdomen Exam GI Palpation: soft and nontender Objective Last Vital Signs Temp 99.7 F H 11/10/22 11:46 Pulse 95 H 11/10/22 12:00 Resp 26 H 11/10/22 12:00 BP 108/67 11/10/22 12:00 Pulse Ox 98 11/10/22 12:00 Laboratory Results - last 24 hr 11/09/22 11/09/22 11/09/22 07:30 07:30 17:30 WBC RBC Hgb Cancelled Hct Cancelled MCV MCH MCHC RDW Plt Count MPV Immature Gran % Neutrophils % Lymphocytes % Monocytes % Eosinophils % Basophils % Nucleated RBC % Absolute Neutrophils Absolute Lymphocytes Absolute Monocytes Absolute Eosinophils Absolute Basophils RBC Morphology VBG Lactate Sodium Potassium Chloride Carbon Dioxide Anion Gap BUN Creatinine Est GFR (CKD-EPI 2020) Glucose Calcium Total Bilirubin Conjugated Bilirubin AST ALT Alkaline Phosphatase C-Reactive Protein Total Protein Albumin Vitamin B12 Procalcitonin B.burgdorferi IgG Positive A B.burgdorferi IgM Negative Lyme Disease Antibody Positive A Lyme Ab Interpretation See Comment HIV 1&2 Ag/Ab, 4th Gen Negative 11/09/22 11/09/22 11/09/22 17:30 17:30 17:30 WBC 5.42 RBC 4.23 L Hgb 14.7 Hct 42.3 MCV 100 H MCH 34.8 H MCHC 34.8 RDW 11.5 L Plt Count 55 L MPV 10.4 Immature Gran % 0.2 Neutrophils % 73.0 Lymphocytes % 21.6 Monocytes % 5.0 Eosinophils % 0.0 Basophils % 0.2 Nucleated RBC % 0.0 Absolute Neutrophils 3.96 Absolute Lymphocytes 1.17 L Absolute Monocytes 0.27 Absolute Eosinophils 0.00 Absolute Basophils 0.01 RBC Morphology VBG Lactate 2.1 H Sodium Potassium Chloride Carbon Dioxide Anion Gap BUN Creatinine Est GFR (CKD-EPI 2020) Glucose Calcium Total Bilirubin Conjugated Bilirubin AST ALT Alkaline Phosphatase C-Reactive Protein 0.14 Total Protein Albumin Vitamin B12 Procalcitonin B.burgdorferi IgG B.burgdorferi IgM Lyme Disease Antibody Lyme Ab Interpretation HIV 1&2 Ag/Ab, 4th Gen 11/09/22 11/10/22 11/10/22 17:30 08:34 08:42 WBC 4.23 L RBC 4.12 L Hgb 14.2 Hct 40.5 MCV 98 H MCH 34.5 H MCHC 35.1 RDW 11.5 L Plt Count MPV Immature Gran % 0.2 Neutrophils % 67.1 Lymphocytes % 25.8 Monocytes % 6.9 Eosinophils % 0.0 Basophils % 0.0 Nucleated RBC % 0.0 Absolute Neutrophils 2.84 Absolute Lymphocytes 1.09 L Absolute Monocytes 0.29 Absolute Eosinophils 0.00 Absolute Basophils 0.00 RBC Morphology Normal VBG Lactate Sodium 136 Potassium 3.6 Chloride 105 Carbon Dioxide 24.1 Anion Gap 6.9 BUN 4 L Creatinine 0.7 Est GFR (CKD-EPI 2020) 120.20 Glucose 111 H Calcium 8.6 Total Bilirubin 0.8 Conjugated Bilirubin 0.2 AST 187 H ALT 325 H Alkaline Phosphatase 155 H C-Reactive Protein Total Protein 6.5 Albumin 3.1 L Vitamin B12 804 Procalcitonin B.burgdorferi IgG B.burgdorferi IgM Lyme Disease Antibody Lyme Ab Interpretation HIV 1&2 Ag/Ab, 4th Gen 11/10/22 08:42 WBC RBC Hgb Hct MCV MCH MCHC RDW Plt Count MPV Immature Gran % Neutrophils % Lymphocytes % Monocytes % Eosinophils % Basophils % Nucleated RBC % Absolute Neutrophils Absolute Lymphocytes Absolute Monocytes Absolute Eosinophils Absolute Basophils RBC Morphology VBG Lactate Sodium Potassium Chloride Carbon Dioxide Anion Gap BUN Creatinine Est GFR (CKD-EPI 2020) Glucose Calcium Total Bilirubin Conjugated Bilirubin AST ALT Alkaline Phosphatase C-Reactive Protein Total Protein Albumin Vitamin B12 Procalcitonin 0.1 B.burgdorferi IgG B.burgdorferi IgM Lyme Disease Antibody Lyme Ab Interpretation HIV 1&2 Ag/Ab, 4th Gen PAWSS Have you Been Recently Intoxicated or Drunk Within the Last 30 days?: Yes Have you Ever Experienced Previous Episodes of Alcohol Withdrawal?: Yes Have you ever Experienced Delirium Tremens(DT)s?: Yes Have you ever Experienced Blackouts?: Yes Have you ever Combined Alcohol with other Downers within the last 90 days?: Yes Have you ever Combined Alcohol with any other Substance of Abuse during the last 90 days?: Yes Positive Blood Alcohol level on Presentation? [PCS.BAL]: Yes Evidence of Increased Autonomic Activity (i.e. HR>120, tremor, sweating, agitation, nausea)?: Yes Result: 8 Time Spent with Patient Time Spent with Patient: <25 minutes Time was spent: preparing to see the patient(eg.review tests) and indepentently interpreting results
[2022-11-10] MEDS: HYDROmorphone 4 MG TAB PO ×2 (17:52→22:43)
--- NOTE | 2022-11-10 21:27 | W.PM.PROGNOT ---
Date of Service Date of service: 11/10/22 Time of Service: 21:00 Assessment and Plan Assessment and plan (1) Alcohol withdrawal: Status: Acute Assessment and plan: He is scoring highly on CIWA consistently. Will add scheduled diazepam to help even out withdrawal. Continue to monitor closely for respiratory depression. (2) Opioid abuse: Status: Acute Assessment and plan: Whether or not he was getting suboxone prescribed, after reviewing his history and talking with him, he clearly meets the criteria for opioid use disorder. Right now, managing pain and avoiding withdrawl with regular hydromorphone dosing. I do think it will be important to transition him to buprenorphine/naloxone but the time he is ready for discharge, as otherwise he may be at high risk of overdose. I would consider a low dose induction protocol (start low dose buprenorphine, possibly with patch, while still on hydromorphone, and titrate up). Part of his anxiety may also be the withdrawal from xylazine, which is a central alpha-2 agonist. Given this, while he is in the ICU we will manage sedation with dexmedetomidine, which has the same mechanism. Ketamine also considered, but I think the Precedex makes more sense pharmacologically. (3) Nicotine dependence: Status: Acute Assessment and plan: nicotrol to replace the vape. Subjective Subjective Interval history since last seen: I was called by RN, patient threatening to leave AMA to drink and use drugs. Also upset that vape and his bag were taken away. He reports extreme anxiety at times, baseline anxiety and pain has been pretty bad. He was using IV heroin/fentanyl/xylazine until 4 days ago, stopped and went to alcohol to cope with withdrawal. He is a chronic alcohol user 16oz vodka over 24 hrs, but increased when stopped using opioids. Lorazepam helps some, but still anxious. hydromorphone helps pain slightly, but doesn't feel like it does much, states he thinks because he was taking 16mg suboxone (unclear timing of this). Exam Narrative Exam Narrative: Alert and oriented. Anxious affect, agitated and squirms in bed but calms with discussion. Breathing comfortably, not sedated. Getting Midline at time of assessment. Objective Last Vital Signs Temp 37.6 C H 11/10/22 11:46 Pulse 75 11/10/22 15:00 Resp 26 H 11/10/22 12:00 BP 108/67 11/10/22 12:00 Pulse Ox 98 11/10/22 12:00 Laboratory Results - last 24 hr 11/09/22 11/09/22 11/09/22 07:30 07:30 17:30 WBC RBC Hgb Hct MCV MCH MCHC RDW Plt Count MPV Immature Gran % Neutrophils % Lymphocytes % Monocytes % Eosinophils % Basophils % Nucleated RBC % Absolute Neutrophils Absolute Lymphocytes Absolute Monocytes Absolute Eosinophils Absolute Basophils RBC Morphology Sodium Potassium Chloride Carbon Dioxide Anion Gap BUN Creatinine Est GFR (CKD-EPI 2020) Glucose Calcium Total Bilirubin Conjugated Bilirubin AST ALT Alkaline Phosphatase Total Protein Albumin Vitamin B12 804 Procalcitonin B.burgdorferi IgG Positive A B.burgdorferi IgM Negative Lyme Disease Antibody Positive A Lyme Ab Interpretation See Comment HIV 1&2 Ag/Ab, 4th Gen Negative 11/10/22 11/10/22 11/10/22 08:34 08:42 08:42 WBC 4.23 L RBC 4.12 L Hgb 14.2 Hct 40.5 MCV 98 H MCH 34.5 H MCHC 35.1 RDW 11.5 L Plt Count MPV Immature Gran % 0.2 Neutrophils % 67.1 Lymphocytes % 25.8 Monocytes % 6.9 Eosinophils % 0.0 Basophils % 0.0 Nucleated RBC % 0.0 Absolute Neutrophils 2.84 Absolute Lymphocytes 1.09 L Absolute Monocytes 0.29 Absolute Eosinophils 0.00 Absolute Basophils 0.00 RBC Morphology Normal Sodium 136 Potassium 3.6 Chloride 105 Carbon Dioxide 24.1 Anion Gap 6.9 BUN 4 L Creatinine 0.7 Est GFR (CKD-EPI 2020) 120.20 Glucose 111 H Calcium 8.6 Total Bilirubin 0.8 Conjugated Bilirubin 0.2 AST 187 H ALT 325 H Alkaline Phosphatase 155 H Total Protein 6.5 Albumin 3.1 L Vitamin B12 Procalcitonin 0.1 B.burgdorferi IgG B.burgdorferi IgM Lyme Disease Antibody Lyme Ab Interpretation HIV 1&2 Ag/Ab, 4th Gen Objective Narrative Objective Narrative: Scoring in teens on CIWA all day PAWSS Have you Been Recently Intoxicated or Drunk Within the Last 30 days?: Yes Have you Ever Experienced Previous Episodes of Alcohol Withdrawal?: Yes Have you ever Experienced Delirium Tremens(DT)s?: Yes Have you ever Experienced Blackouts?: Yes Have you ever Combined Alcohol with other Downers within the last 90 days?: Yes Have you ever Combined Alcohol with any other Substance of Abuse during the last 90 days?: Yes Positive Blood Alcohol level on Presentation? [PCS.BAL]: Yes Evidence of Increased Autonomic Activity (i.e. HR>120, tremor, sweating, agitation, nausea)?: Yes Result: 8 Time Spent with Patient Time Spent with Patient: <25 minutes Time was spent: preparing to see the patient(eg.review tests), obtaining and/or reviewing separately otained hiistory and counseling the patient
[2022-11-10] MEDS: Nicotine 21 MG/24 HR PATCH TD (22:35)
[2022-11-10] MEDS: dexmedeTOMidine IN 0.9 % NACL 400 MCG/100 ML BTL 8.7 MCG IV (22:50)
[2022-11-11] VITALS (34 sets, daily range): BP systolic 90–154; BP diastolic 50–92; PULSE 50–95; RESP 11–30; TEMP 37–37.4; O2SAT 96–100
[2022-11-11] MEDS: LORazepam 2 MG/ML VIAL IVP (00:59)
[2022-11-11] MEDS: dexmedeTOMidine IN 0.9 % NACL 400 MCG/100 ML BTL 11.6 MCG IV ×2 (01:24→06:03)
[2022-11-11 07:28] LABS: HCT 41.4 % (40.0-50.0); HGB 14.6 g/dL (13.5-17.5); MCH 34.8 pg (27.0-33.0); MCHC 35.3 % (32.0-36.0); MCV 99 fL (80-95); MPV 10.9 fL (8.0-11.0); RDW 11.3 % (11.8-14.1); RDW-SD 41.3 fL; WBC 4.42 10^3/uL (4.4-10.8)
[2022-11-11 07:42] LABS: ALT 291 U/L (16-63); AST 126 U/L (15-37); Albumin 3.3 g/dL (3.4-5.0); Alkaline Phosphatase 147 U/L (46-116); Anion Gap 8.9 mmol/L (3-11); BUN 8 mg/dL (7-18); Bilirubin, Direct 0.2 mg/dL (0.0-0.2); Bilirubin, Total 0.8 mg/dL (0.2-1.0); CO2 27.1 mmol/L (21.0-32.0); CREATININE 0.7 mg/dL (0.70-1.30); Calcium 8.9 mg/dL (8.5-10.1); Chloride 104 mmol/L (98-107); Glucose 119 mg/dL (74-106); Magnesium 1.9 mg/dL (1.8-2.4); Potassium 3.6 mmol/L (3.5-5.1); Sodium 140 mmol/L (136-145); Total Protein 6.9 g/dL (6.4-8.2)
[2022-11-11 07:59] LABS: Platelet Count 55 10^3/uL (130-400)
[2022-11-11 08:00] LABS: Absolute Lymphocyte Count 1.77 10^3/uL (1.2-3.4); Absolute Monocyte Count 0.22 10^3/uL (0.1-0.8); Absolute Neutrophil Count 2.43 10^3/uL (1.2-6.7); Atypical Lymphocytes % 4; Diff Comment Manual Differential; RBC Morphology Normal
--- NOTE | 2022-11-11 08:11 | PDOC.CMPRO ---
Date of service: 11/11/22 Time of Service: 08:11 Care Management Progress Note Progress Note Text Progress Note Text: S/O:Ayaan remains in the ICU. A: Ayaan is a 37 year old man admitted on 11/08/22 with acute liver injury P:?Anticipate Ayaan will be discharged back to the community when medically cleared by provider. He needs to establish with a PCP and would likely benefit from substance use treatment. CM will follow and support discharge needs.
[2022-11-11] MEDS: Pantoprazole 40 MG VIAL 80 MG IVP (08:40)
[2022-11-11] MEDS: Amoxicillin 500 MG CAP 1000 MG PO ×2 (08:41→19:23)
[2022-11-11] MEDS: Clarithromycin 500 MG TAB PO ×2 (08:42→19:15)
[2022-11-11] MEDS: Folic Acid 1 MG TAB PO (08:43)
[2022-11-11] MEDS: Thiamine 100 MG TAB PO (08:43)
[2022-11-11] MEDS: Gabapentin 800 MG TAB PO ×3 (08:43→19:15)
[2022-11-11] MEDS: HYDROmorphone 4 MG TAB PO ×4 (08:43→21:34)
[2022-11-11] MEDS: Multivitamin TAB 1 TAB PO (08:43)
[2022-11-11] MEDS: diazePAM 5 MG TAB PO ×3 (08:44→19:16)
[2022-11-11] MEDS: VANCOMYCIN/WATER (PEG) 1 GM/200 ML BAG IV (08:44)
[2022-11-11] MEDS: Normal Saline Flush 10 ML SYR IVP (08:45)
[2022-11-11] MEDS: LORazepam 1 MG TAB PO/SL ×4 (10:25→21:33)
[2022-11-11 11:12] LABS: EBNA IgG Positive (Negative); EBV Interpretation (See Note); VCA IgG Positive (Negative); VCA IgM Negative (Negative)
--- NOTE | 2022-11-11 12:22 | W.PM.PROGNOT ---
Date of Service Date of service: 11/11/22 Time of Service: 12:22 Assessment and Plan Assessment and plan (1) Alcohol withdrawal: Status: Acute Assessment and plan: patient has still been scoring high on CIWA and last night was put on Precedex for treatment of opioid withdrawal and was put on scheduled valium. He stil requires prn iv ativan and as such still needs ICU coverage. (2) Abdominal pain: Status: Acute Assessment and plan: he has chronic pancreatitis but no elevation of his lipase and no inflammatory changes around his pancreas on CT scan. He has PUD and he is currently carafate and protonix. (3) Duodenitis: Status: Acute Assessment and plan: as above (4) Portal hypertensive gastropathy: Status: Acute Assessment and plan: as above (5) Chronic pancreatitis: Status: Chronic Assessment and plan: no evidence of acute inflammation either on CT and lipase remains normal Qualifiers: Pancreatitis type: alcohol induced Qualified Code(s): K86.0 - Alcohol-induced chronic pancreatitis (6) Dilated pancreatic duct: Status: Acute (7) Transaminitis: Status: Acute Assessment and plan: patient's transaminitis is most likely d/t his alcoholic hepatitis. AST 3867>1106>521>187>126 currently and ALT 1227>764>581>325>291 and alkaline phosphataes 333>234>221>155>147 However he is positive for EBV for remote infection and his Lyme antibody testing also is indicative of prior Lyme disease. i.e. his [place] burgdorferi IgG is positive but his IgM is negative. The rest of his tick panel is pending. (8) Unsheltered homelessness: Status: Acute Assessment and plan: patient is homeless. will give him information on applying for transitional housing. (9) Nicotine dependence: Status: Acute Assessment and plan: patient has been put on nicotine replacment therapy (10) Thrombocytopenia: Status: Chronic Assessment and plan: platelet count holding at 55,000 (11) Discharge planning issues: Status: Acute (12) DVT prophylaxis: Status: Acute Assessment and plan: SCD, no chemical prophylaxis d/t low platelets (13) Opioid abuse: Status: Acute Assessment and plan: patient reports being on suboxone but pharmacy has tried all of his alleged providers and none admit to him being their client. Dr. Paul has recommended initiaton of low dose suboxone and discharging him on suboxone w/ titration of the dose. However, I have not passed any federal prescribed program for prescribing suboxone. I have asked case management to make referral to area agencies such as [facility]. Subjective Subjective Interval history since last seen: Patient became very agitated last night despite getting his ativan and he threatened going AMA. Dr. Paul put him on Precedex and scheduled Valium. He also suggests starting on suboxone while inpatient and while on hydromorphone starting low dose and titrating up. Patient was alert and oriented and talking on the phone this morning and became more agitated and nursing had to increase his Precedex. He is now sedated. I have asked nursing to wean down the Precedex. Exam Narrative Exam Narrative: Patient is somnolent, he does not arouse to verbal calling of his name, but does stir when I examined him and particularly when I examined his abdomen Lungs: clear Heart: RRR Abdomen: nondistended, normal bowel sounds, but tender w/deep palation, but no rebound Extremities: no edema Objective Last Vital Signs Temp 37.0 C 11/11/22 07:25 Pulse 54 L 11/11/22 07:25 Resp 16 11/11/22 07:25 BP 123/85 11/11/22 06:33 Pulse Ox 97 11/11/22 07:25 Laboratory Results - last 24 hr 11/08/22 11/09/22 11/11/22 14:19 07:30 06:10 WBC RBC Hgb Hct MCV MCH MCHC RDW Plt Count MPV Immature Gran % Neutrophils % Lymphocytes % Atypical Lymphs % Monocytes % Eosinophils % Basophils % Nucleated RBC % Absolute Neutrophils Absolute Lymphocytes Absolute Monocytes Absolute Eosinophils Absolute Basophils RBC Morphology Sodium 140 Potassium 3.6 Chloride 104 Carbon Dioxide 27.1 Anion Gap 8.9 BUN 8 Creatinine 0.7 Est GFR (CKD-EPI 2020) 120.20 Glucose 119 H Calcium 8.9 Magnesium 1.9 Total Bilirubin 0.8 Conjugated Bilirubin 0.2 AST 126 H ALT 291 H Alkaline Phosphatase 147 H Total Protein 6.9 Albumin 3.3 L B.burgdorferi IgG Positive A B.burgdorferi IgM Negative Lyme Disease Antibody Positive A Lyme Ab Interpretation See Comment EBV IgG Ab Positive A EBV IgM Ab Negative EBV Nuclear Antigen Ab Positive A EBV Antibody Interp (See Note) 11/11/22 06:10 WBC 4.42 RBC 4.20 L Hgb 14.6 Hct 41.4 MCV 99 H MCH 34.8 H MCHC 35.3 RDW 11.3 L Plt Count 55 L MPV 10.9 Immature Gran % 0.0 Neutrophils % 55.0 Lymphocytes % 36.0 Atypical Lymphs % 4 Monocytes % 5.0 Eosinophils % 0.0 Basophils % 0.0 Nucleated RBC % 0.0 Absolute Neutrophils 2.43 Absolute Lymphocytes 1.77 Absolute Monocytes 0.22 Absolute Eosinophils 0.00 Absolute Basophils 0.00 RBC Morphology Normal Sodium Potassium Chloride Carbon Dioxide Anion Gap BUN Creatinine Est GFR (CKD-EPI 2020) Glucose Calcium Magnesium Total Bilirubin Conjugated Bilirubin AST ALT Alkaline Phosphatase Total Protein Albumin B.burgdorferi IgG B.burgdorferi IgM Lyme Disease Antibody Lyme Ab Interpretation EBV IgG Ab EBV IgM Ab EBV Nuclear Antigen Ab EBV Antibody Interp PAWSS Have you Been Recently Intoxicated or Drunk Within the Last 30 days?: Yes Have you Ever Experienced Previous Episodes of Alcohol Withdrawal?: Yes Have you ever Experienced Delirium Tremens(DT)s?: Yes Have you ever Experienced Blackouts?: Yes Have you ever Combined Alcohol with other Downers within the last 90 days?: Yes Have you ever Combined Alcohol with any other Substance of Abuse during the last 90 days?: Yes Positive Blood Alcohol level on Presentation? [PCS.BAL]: Yes Evidence of Increased Autonomic Activity (i.e. HR>120, tremor, sweating, agitation, nausea)?: Yes Result: 8 Time Spent with Patient Time Spent with Patient: 25-34 minutes Time was spent: preparing to see the patient(eg.review tests), ordering medications,tests, procedures, referring, communicating with other health resident care aide, indepentently interpreting results and care coordination
[2022-11-11] MEDS: Sucralfate 1 GM TAB PO ×3 (13:25→23:47)
--- NOTE | 2022-11-11 13:37 | PHACLINREV_ITS ---
Pharmacy Admission Review - Admission Clinical Review (Last Updated 11/08/22 @ 17:47 by Rosy Baker MD) Unsheltered homelessness (Acute) Nicotine dependence (Acute) Alcohol withdrawal (Acute) Duodenitis (Acute) Portal hypertensive gastropathy (Acute) Discharge planning issues (Acute) DVT prophylaxis (Acute) Opioid abuse (Acute) Dilated pancreatic duct (Acute) Gallbladder polyp (Acute) Transaminitis (Acute) Hepatic dysfunction (Acute) Abdominal pain (Acute) Nausea & vomiting (Acute) No Known Allergies Allergy (Unverified 11/08/22 07:38) Resuscitation Status Full Code Height 5 ft 6 in Weight 56.5 kg - Renal Dosing Renal Dosing: BUN 8 mg/dL (7-18) 11/11/22 06:10 Creatinine 0.7 mg/dL (0.70-1.30) 11/11/22 06:10 Medications needing adjustments: Reviewed (Crcl ~113 mL/min current meds okay) - Anticoagulation Anticoagulation: Hgb 14.6 g/dL (13.5-17.5) 11/11/22 06:10 Hct 41.4 % (40.0-50.0) 11/11/22 06:10 Plt Count 55 10^3/uL (130-400) L 11/11/22 06:10 INR 0.9 (0.9-1.1) 11/09/22 07:30 Creatinine 0.7 mg/dL (0.70-1.30) 11/11/22 06:10 DVT Prophylaxis: Reviewed (chemical prophylaxis is being held in the setting of GI bleed per progress note; SCDs ordered) Therapeutic Anticoagulation: N/A - Opiate Usage Evaluate Pain Scale/Pains Meds: Reviewed Scheduled Bowel Reg ordered if on Opiates?: No (will mention to provider) - Relevant Labs Sodium 140 mmol/L (136-145) 11/11/22 06:10 Potassium 3.6 mmol/L (3.5-5.1) 11/11/22 06:10 Chloride 104 mmol/L (98-107) 11/11/22 06:10 Phosphorus < 2.0 mg/dL (2.6-4.7) L 11/09/22 07:30 Magnesium 1.9 mg/dL (1.8-2.4) 11/11/22 06:10 C-Reactive Protein 0.14 mg/dL (0.0-0.3) 11/09/22 17:30 Electrolytes, C-Reactive P, ESR: Reviewed - DM Control DM Control: Glucose 119 mg/dL (74-106) H 11/11/22 06:10 Hemoglobin A1c 5.4 % (<5.7) 11/09/22 07:30 DM Control: Reviewed (DKA noted in pt's medical history but DM is not listed? A1c 5.4 on 11/09/22) Insulin Dosing, Diabetic Medication: n/a - Cardiac Review BP, HR, EF%: Reviewed (BP has been mostly within normal limits and BP has been up and down some since admission.) - Qtc Review QTc: Reviewed (QTc 451 on admission) - IV to PO Switch IV Medications: Intervened (will ask provider about possibly changing pantoprazole from IV to PO) - Home Meds Home Med List reviewed: Intervened (see information in relevant home meds not ordered) Relevent Home Meds Not ordered & why?: suboxone and gabapentin- I tried to verify suboxone and gabapentin dosing. Per patient he suboxone from [facility] in [place] and gabapentin from [facility]. Neither location has him listed as a patient of theirs, he is not found as a patient system wide for [facility]. No information via [facility]. Unclear when patient last filled these/where he gets them from. - Current meds Current Medication Order Review: Intervened (Discontinued duplicate med orders and DI meds that had already been given.) - Comments Comments/Follow Ups: Watch VS, plts, labs and for med changes. Antibiotic Review - Pharmacy Antibiotic Review Pharmacy Antibiotic Activity: C/S review, D/C antibiotic (One BC growing staph hominis, other three have no growth to date. Vanco discontinued by provider. )
[2022-11-11 14:49] LABS: Antinuclear Ab, S 0.2 U
[2022-11-11 15:19] LABS: Smooth Muscle Ab Screen Negative (Negative)
--- NOTE | 2022-11-11 15:22 | CMPROGNOTE_ITS ---
Date of service: 11/11/22 Time of Service: 15:23 Care Management Progress Note Progress Note Text Progress Note Text: S/O: When CM came to meet with Ayaan, he was on the phone with his brother. Ayaan indicated that he wished to continue the call, so CM stated she would return later. After 15 minutes or so CM returned but Ayaan was still on the phone with his brother.. Per staff, he is the only person Ayaan has spoken to. They have not been in close contact for years so it seemed important to allow him to continue the call. CM returned in the afternoon and Ayaan was asleep. He had become anxious and agitated, requiring nursing staff to increase his Preced ex infusion. Last night he had a similar episode, threatening to go AMA and a Precedex infusion was initiated. A: Ayaan is a 37 year old man admitted on 11/08/22 with acute liver injury P:?Anticipate Ayaan will be discharged back to the community when medically cleared by provider. He needs to establish with a PCP and would likely benefit from substance use treatment. CM will follow and support discharge needs.
[2022-11-11] MEDS: dexmedeTOMidine IN 0.9 % NACL 400 MCG/100 ML BTL 5.8 MCG IV (19:14)
[2022-11-11] MEDS: Sennosides/Docusate Sodium TAB 1 TAB PO (19:16)
[2022-11-11] MEDS: Pantoprazole 40 MG TABCR PO (19:16)
[2022-11-11 19:22] LABS: Mitochondrial Ab, M2 <0.1 U
[2022-11-11] MEDS: Docusate Sodium 100 MG CAP PO (21:34)
[2022-11-11] MEDS: Nicotine 14 MG/24 HR PATCH (22:20)
[2022-11-12] VITALS (17 sets, daily range): BP systolic 87–114; BP diastolic 54–80; PULSE 42–88; RESP 11–29; TEMP 36.2–37.1; O2SAT 96–98
[2022-11-12] MEDS: HYDROmorphone 4 MG TAB PO ×4 (01:05→14:15)
[2022-11-12] MEDS: LORazepam 1 MG TAB PO/SL ×2 (01:11→05:52)
--- NOTE | 2022-11-12 01:20 | NUR.NOTE ---
0120 Hydromorphone 4 mg and lorazepam 2 mg given po for restlessness and pain with good effect. continues on precedex at 0.6 mcg/kg/hr.
--- NOTE | 2022-11-12 03:23 | NUR.NOTE ---
0315-precedex increased to 0.8 mcg/kg/hr per pt request for agitation, inability to sleep, restless legs. given two cups itallian ice to eat per request. Now sleeping.
[2022-11-12] MEDS: Sucralfate 1 GM TAB PO ×2 (05:51→13:22)
[2022-11-12] MEDS: dexmedeTOMidine IN 0.9 % NACL 400 MCG/100 ML BTL 8.7 MCG IV (06:03)
--- NOTE | 2022-11-12 06:32 | NUR.NOTE ---
Nursing Note: lorazepam 2 mg given per CIWA score, hydromorphone 4 mg given for abd pain. precedex back down to 0.6mcg/kg/hr so he can be more awake during the day.
--- NOTE | 2022-11-12 06:54 | W.PULMCC ---
General Date of Service Date of service: 11/12/22 Time of Service: 06:54 Reason for Admission to ICU: EtOH withdrawal Agitation Assessment and Plan Assessment and plan (1) Nicotine dependence: Status: Acute (2) Alcohol withdrawal: Status: Acute (3) Duodenitis: Status: Acute (4) Portal hypertensive gastropathy: Status: Acute (5) Thrombocytopenia: Status: Chronic (6) Hepatic dysfunction: Status: Acute (7) Chronic pancreatitis: Status: Chronic Qualifiers: Pancreatitis type: alcohol induced Qualified Code(s): K86.0 - Alcohol-induced chronic pancreatitis (8) Agitation: Status: Acute Assessment and plan: This is a 37 yo admitted for EtOH withdrawal s/p benzodiazepine protocol. He does have liver dysfunction, however it is not elevated as compared to prior admissions. He was started on Precedex for agitation in the setting of his withdrawals. I recommend we start melatonin qhs, nicotine inhaler and guanfacine in order to try and liberate him from the Precedex infusion. Both Precedex and guanfacine can cause bradycardia, which inherently prolongs QTc, so I will repeat an EKG today. Additionally, the clarithromycin may decreased the effective guanfacine (via CYP) for I will order it for 1mg bid. He is being treated with amoxicillin and clarithromycin for duodenitis (presumably H. pylori). He also has not had a BM since admission so recommend Miralax and doc/senna. If this does not work, then he may need Relistor given narotics. Recommendations Pulmonary: No acute concerns Cardiac: No acute concerns Renal: No acute concerns I&O: Intake & Output 11/09/22 11/10/22 11/11/22 11/12/22 23:59 23:59 23:59 23:59 Intake Total 6287.500 / 6287.500 3368.75 / 3368.75 1713.617 / 9132.626 8218.205 / 1291.205 Output Total 5925 / 5925 2525 / 3100 2975 / 2975 2100 / 2100 Balance 362.500 / 362.500 843.75 / 268.75 -1261.383 / -1261.383 -808.795 / -808.795 Weight 61.5 kg 58 kg 56.5 kg 58.9 kg Daily Fluid Goal:: even GI Nutrition: Nutrition - on regular diet Constipation - Miralax - senna/docusate - if no BM, consider Relistor Hepatic dysfunction - does not appear to be in acute liver failure Chronic pancreatitis - negative lipase during this admission Date of Last Bowel Movement: 11/08/22 Infectious Disease: Duodenitis - H. pylori pending - on amoxicillin and clarithromycin Hematologic: Thrombocytopenia - continue to monitor Neurologic: EtOH withdrawal - on MVI, thiamine, folate - s/p benzo protocol - on Valium - home med Agitation - nicotine replacement - melatonin qhs - wean off Precedex: guanfacine started 1mg bid - EKG ordered for today to monitor QTc Endocrine: No acute concern Lines: PIV Prophylaxis: Protonix Recommend starting DVT ppx unless platelets <50,000 consistently Code Status: Resuscitation Status Full Code Subjective Critical and life-threatening events over the past 24 hours: This is a 37 yo who is unhomed with EtOH withdrawal and a history of past seizures and chronic pancreatitis who is admitted for EtOH withdrawal and subsequent agitation. He received benzodiazepines and currently does not appear to be in withdrawal, but rather agitation. He was started on Precedex for this. Today he complains of abdominal pain. He states he 'always gets belly pain until he takes his pain medicine everyday'. He feels as though his withdrawal is improved. Exam Narrative Exam Narrative: Gen: NAD, normal respiratory effort, well-nourished HENT: PERRL, nasal turbinates normal without erythema or inflammation, moist oral mucosa, Mallampati 2, No LAD or JVD Chest: No respiratory distress, normal appearance of chest, clear to auscultation bilaterally, no crackles or wheezes, normal inspiratory effort Heart: regular rate and rhythym, no murmurs, rubs or gallops Abdomen: Non-distended, soft, non tender Extremities: No clubbing, edema, cyanosis, rashes Neuro: AAOx3 , non focal Psych: cooperative, appropriate mental affect Most Recent VS/Results Last Vital Signs Temp 36.3 C L 11/12/22 04:19 Pulse 50 L 11/12/22 04:19 Resp 18 11/12/22 04:19 BP 114/60 11/12/22 04:19 Pulse Ox 96 11/12/22 04:19 Laboratory Results - last 24 hr 11/08/22 11/11/22 11/11/22 14:19 06:10 06:10 WBC 4.42 RBC 4.20 L Hgb 14.6 Hct 41.4 MCV 99 H MCH 34.8 H MCHC 35.3 RDW 11.3 L Plt Count 55 L MPV 10.9 Immature Gran % 0.0 Neutrophils % 55.0 Lymphocytes % 36.0 Atypical Lymphs % 4 Monocytes % 5.0 Eosinophils % 0.0 Basophils % 0.0 Nucleated RBC % 0.0 Absolute Neutrophils 2.43 Absolute Lymphocytes 1.77 Absolute Monocytes 0.22 Absolute Eosinophils 0.00 Absolute Basophils 0.00 RBC Morphology Normal Sodium 140 Potassium 3.6 Chloride 104 Carbon Dioxide 27.1 Anion Gap 8.9 BUN 8 Creatinine 0.7 Est GFR (CKD-EPI 2020) 120.20 Glucose 119 H Calcium 8.9 Magnesium 1.9 Total Bilirubin 0.8 Conjugated Bilirubin 0.2 AST 126 H ALT 291 H Alkaline Phosphatase 147 H Total Protein 6.9 Albumin 3.3 L ALISSON Scrn Quantitative 0.2 Anti-Smooth Muscle Ab Negative EBV IgG Ab Positive A EBV IgM Ab Negative EBV Nuclear Antigen Ab Positive A EBV Antibody Interp (See Note) Review of Systems All systems reviewed & are unremarkable except as noted in HPI and below Time spent with patient Time spent in Critical Care: 45 Time spent in Critical care included: Chart review, Documenting critically ill care, Time at immediate bedside and Discussing critically ill care with other medical staff Multi-Disciplinary Checklist Lines/Tubes CENTRAL LINE: no ARTERIAL LINE: no FLORES: no ENDOTRACHEAL TUBE: no ICU Maintenance GLUCOSE 140-180mg/dL: yes NUTRITION AT GOAL: yes PRESSURE ULCER: no RESTRAINTS: no ANTIBIOTICS(if yes, consider Stewardship): Yes Social Issues FAMILY UPDATED: no, Reason/Intervention: patient able PT/OT: no, Reason/Intervention: recommend PT assessment GOALS/DISPOSITION/[employer]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
--- NOTE | 2022-11-12 07:00 | RT.EKG_ITS ---
APPROVED REPORT Exam: Resting ECG Reason for Exam: prolonged QT Patient Location: I HR:65 bpm ECG Measurements Heart Rate 65 AXIS WI 154 P 56 QRSd 83 QRS 68 QT 393 T 38 QTc 409 Conclusion Sinus rhythm...normal P axis, V-rate 50- 99 Artifact Consider left ventricular hypertrophy...(S V1/V2+R V5/V6) >3.50mV
--- NOTE | 2022-11-12 08:44 | W.PM.ENDDOP ---
Date of service: 11/09/22 Time of Service: 14:46 Endoscopy Report DATE OF PROCEDURE: 11/09/22 PRE-OP DIAGNOSIS: Gastritis POST-OP DIAGNOSIS: other (Duodenitis with ulceration, portal hypertensive gastropathy) PROCEDURE: Esophagogastroduodenoscopy SURGEON: Giuseppe Vicente ANESTHESIA TYPE: General:No Airway ESTIMATED BLOOD LOSS: 0 PATHOLOGY: none sent COMPLICATIONS: None DISPOSITION: ICU INDICATIONS: Ayaan is a 37-year-old male who was hospitalized with midepigastric pain, nausea and vomiting. He is guaiac positive. PROCEDURE START TIME: 14:42 PROCEDURE END TIME: 14:46 FINDINGS: Portal hypertensive gastropathy with duodenitis and ulceration PROCEDURE DESCRIPTION: After the initiation of monitored anesthetic care, and with the assistance of a bite block, I advanced a standard gastroscope through the mouth past the hypopharynx and into the esophagus.? Under the direct vision of the scope, I advanced down the esophagus into the stomach.? Once I entered the stomach, I performed a brief inspection, followed by retroflexion towards the gastric cardia.? This appeared normal.? After that, I gently advanced the scope around the incisura angularis and examined the pylorus.? The gastric mucosa was mildly hyperemic, with clinical findings of portal hypertensive gastropathy. There was mild erythema in the immediate prepyloric region.? Next, I advanced the scope through the pylorus into the duodenum.? The mucosa was extremely erythematous and friable. There was ulceration at the junction of the duodenal bulb and the first portion of the duodenum. Taking great care I gently advanced into the second portion of the duodenum. Again, there was extensive, circumferential erythema with friable mucosa. There were several areas of punctate ulceration with no signs of active bleeding.? I was able to visualize bile draining into the duodenum through the ampulla Vater. ?Next, I began retracting the endoscope. In light of the extent of the inflammation, I did not believe that biopsies would be safe. I brought the scope back into the stomach and desufflated some of the gas. I brought the camera up to the GE junction, which was irregular. The Z-line measured approximately 38 cm from the incisors. 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 However, in light of his overall clinical scenario, I did not perform biopsies at this time. Certainly, once he is recovered from his acute hospitalization, we should give consideration to repeat endoscopy with biopsies of the GE junction. Finally, I brought the scope up along the length of the esophagus. I did not see any obvious signs of esophageal variceal disease.
[2022-11-12] MEDS: guanFACINE 1 MG TAB PO (08:50)
[2022-11-12] MEDS: Amoxicillin 500 MG CAP 1000 MG PO (08:51)
[2022-11-12] MEDS: Clarithromycin 500 MG TAB PO (08:51)
[2022-11-12] MEDS: Thiamine 100 MG TAB PO (08:52)
[2022-11-12] MEDS: diazePAM 5 MG TAB PO ×2 (08:52→14:15)
[2022-11-12] MEDS: Gabapentin 800 MG TAB PO ×2 (08:52→14:15)
[2022-11-12] MEDS: Multivitamin TAB 1 TAB PO (08:53)
[2022-11-12] MEDS: Folic Acid 1 MG TAB PO (08:53)
[2022-11-12] MEDS: Pantoprazole 40 MG TABCR PO (08:53)
[2022-11-12] MEDS: Normal Saline Flush 10 ML SYR IVP (08:56)
--- NOTE | 2022-11-12 09:06 | PDOC.CMPRO ---
Date of service: 11/12/22 Time of Service: 09:06 Care Management Progress Note Progress Note Text Progress Note Text: S/O: Ayaan was sitting up in bed eating lunch when CM met with him. He is awake, anxious, appropriate and engages in conversation. He shares that he's been a patient of Dr. Mcfadden for several years and is only prescribed Gabapentin, he feels that he is not receiving the medication that he needs, specifically Clonazapam. He also indicates that he needs large doses of medications due to his history of drug use and notes that Dilaudid 4 mg doesn't even bring my pain from a 7 to a 6. Ayaan shares that his alcohol intake is excessive and is needed to numb him from wanting to do hard core drugs. Ayaan shares that he is not interested in meeting with a [employer], inpatient Rehab or even a follow up with Dr. Mcfadden because he feels strongly that his problems can not be solved without pills. CM discussed the importance of close community follow up asked where RX's could be sent after discharge and if he has medical coverage? Patient is forthcoming with information and shares that his name is really Jose Burns and he uses [facility]. Per Jose, he shared this with the nurse last night so he could get his records straight. Jose shares that he is homeless [place], but has money in his bag to buy a new one if needed. He shares that he has legal issues and was initially worried that his ex's dad would find out he was here, so he said his name was Ayaan Madrid. Hospitalist is notified of name change with a goal to offer continuity of care. CM will continue to follow. A: Ayaan is a 37 year old man admitted on 11/08/22 with acute liver injury P:?Anticipate Ayaan will be discharged back to the community when medically cleared by provider. He needs to establish with a PCP and would likely benefit from substance use treatment. CM will follow and support discharge needs.
[2022-11-12] MEDS: Acetaminophen 325 MG TAB PO (09:10)
[2022-11-12] MEDS: LORazepam 2 MG/ML VIAL 4 MG IVP (09:20)
--- NOTE | 2022-11-12 13:52 | DSE_ITS ---
Date of service: 11/12/22 Time of Service: 13:52 DS: Diagnosis Discharge Diagnosis (1) Nicotine dependence: (2) Alcohol withdrawal: (3) Duodenitis: (4) Portal hypertensive gastropathy: (5) Thrombocytopenia: (6) Hepatic dysfunction: (7) Chronic pancreatitis: (8) Agitation: Discharge Plan Disposition Patient Disposition: Home Condition: Serious Condition: Stable Discharge Details Reason For Visit: Acute Liver Injury Admit Date/Time: 11/08/22 14:11 Admit Provider: Rosy Baker Attending Provider: Rosy Baker Primary Care Provider: None,None Hospital Course Hospital Course: Patient is a 37 yr old male w/ hx of alcoholism and chronic pancreatitis who presented to the ED under a false name of Ayaan Madrid complaining of abdominal pain. He was found to have severe transamintis w/ AST 3867, AST 1227, alkaline phosphatase 333 and elevated total bilirubin of 2.6 but normal ammonia of <10, normal lipsae 24, blood alcohol was low at 7.8. UDS was posivie for opiates and THC. CT abdomen/pelvis demonstrated duodenitis and enteritis of proximal jejunum and chronic pancreatic calcifications, pancreatic ductal dilatation but no pseudocyst nor peripancreatic inflammation, and no gall stones or biliary ductal dilatation. Fatty liver changes were seen but no hepatic mass. He had subsequent abdominal US and MRCP. US again demonstrated atrophic pancreas w/ multiple calcifications and ductal dilatation and a polyp in the gall bladder. MRCP showed no biliary ductal dilatation, no liver abnormalites and again atrophic pancreas w/ pancreatic ductal dilatation but no acute pancreatic inflammation, however, the GB polyp was not seen on MRI. Patient was admitted to ICU for iv lorazepam treatment for acute alcohol withdrawal. He required narcotics for pain management and was put on protonix and carafate empirically. Surgical consult was obtained. He had EGD done on 11/[address] Giuseppe Vicente who found the patient to have no active bleeding and no varices but evidence of duodenitis w/ ulceration and portal hypertensive gastropathy. Because of his thrombocytopenia from his chronic alcoholism and chronic liver disease, no biopsy was obtained to check for Helicobacter pylori infection. However, patient was placed on amoxicillin, biaxin and bismuth empirically to treat for H. pylori. Patient's transaminitis markedly improved AST 3867 > 126, ALT 1227 > 291, ALK PHOS 333 > 147 and bilirubin 2.6 > 0.8. CRP declined 0.42 to 0.14. Surprisingly his INR/protime was normal w/ PT of 9.9 and INR 1.0 which was repeated and remained normal. Albumin varied between 3.3 and 3.6. During his hospitalization, the patient's behavior became aggressive toward staff and a code giron and eventually a code silver was called. Patient was medically stable and deemed appropriate for discharge and therefore was discharged. Throughout his hospital stay pharmacy attempted to reconcile his medications to attempt to determine his home dose of suboxone and gabapentin, however, because he gave a false identification, the staff had trouble identifying where he got his prescriptions. On the day of his discharge, he revealed to case management his true identification. He was discharged w/ medications for treatment for H. pylori and for his gastritis and duodenitis however, they went to [facility] under his false identification because he had been entered into the system under a false identity. Post discharge his medical record was rectifited to reflect his actual identity of Jose Burns rather than Ayaan Madrid. His Rx will be sent via printed prescriptions which will be faxed to [facility] pharmacy. Home Meds and New Rx's Prescriptions: New doxycycline hyclate 100 mg tablet 100 mg PO BID Qty: 20 0RF amoxicillin 500 mg Capsule 1,000 mg PO BID 12 Days Qty: 48 0RF clarithromycin 500 mg Tablet 500 mg PO BID 12 Days Qty: 24 0RF sucralfate 1 gram Tablet 1 g PO Q6H Qty: 120 0RF pantoprazole 40 mg Tablet,Delayed Release (Dr/Ec) 40 mg PO BID@ 30 Days Qty: 60 0RF bismuth subsalicylate [Stomach Relief] 262 mg/15 mL Suspension 17 ml PO QID 12 Days Qty: 816 0RF folic acid 1 mg Tablet 1 mg PO QAM Qty: 30 0RF thiamine mononitrate (vit B1) [Vitamin B-1 (mononitrate)] 100 mg Tablet 100 mg PO QAM Qty: 30 0RF Continued gabapentin 800 mg Tablet 800 mg PO TID Rx Instructions: LAST FILLED IN MAY OF 2022 FOR A 90 DAY SUPPLY buprenorphine-naloxone 8-2 mg Film 2 film sublingual DAILY Rx Instructions: LAST PICKED UP 5/5/23 FROM [facility] FOR A 7 DAY SUPPLY No Action (DME) Tegaderm-Absorbent 3 inx3.75 in See Rx Instructions .Route .MEDSUPPLY Qty: 10 0RF Rx Instructions: As directed on both ankles, change every 3-5 days until healed gabapentin 800 mg tablet 800 mg PO TID Qty: 270 3RF buprenorphine-naloxone 8-2 mg film 1 film SL DAILY buprenorphine-naloxone [Suboxone] 12-3 mg film 1 film sublingual DAILY Rx Instructions: TAKES IN ADDITION TO 8MG FILM, BUT HASN'T HAD IN OVER A WEEK - 02/23/22 Discharge Instructions Instructions: Alcohol Use Disorder (DC), Narcotic Use Disorder (DC) Additional Instructions: You were admitted to the hospital for evaluation of abdominal pain and were found to have alcoholic gastritis and duodenitis (inflammation from alcohol effects on your stomach and small bowel). You are being prescribed carafate and protonix to help your stomach and duodenum heal. You need to refrain from further use of alcohol. You have also been prescribed Biaxin and amoxacillin and bismuth to treat a potential Helicobacter pylori infection of your stomach which can cause ulcers. Thiamine and folic acid has been prescribed to correct your low levels from your chronic alcohol use. You need to follow up w/ your primary care provider in the next week Referrals: Joel Martinez DO [OSTEOPATHIC DOCTOR] - (follow up within one week) Activity:: Activity as Tolerated Equipment/Supplies:: No Equipment Needed Diet:: low fat Discharge Orders Discharge Orders: Discharge Order (Routine); Ordered 11/12/22 Ordered By: Miko Lazcano Discharge Data Discharge Date/Time-TO BE ENTERED AT DEPARTURE: 11/12/22 14:30 DS: Summary Time Spent with Patient providing and/or coordinating discharge services: Greater than 30 minutes Status at Discharge Functional status at discharge: independent ambulation Overall status at discharge: patient is back to baseline Mental Status: mental status grossly normal Speech and Movement: speech and movement normal Mood: labile mood and angry Affect: hostile Exam Psych Mental Status: mental status grossly normal Speech and Movement: speech and movement normal Mood: labile mood and angry Affect: hostile DS: Data Vitals/I&O Vitals and I&O: Vital Signs Temperature 36.2 C L 11/12/22 07:15 Temperature Source Temporal Artery Scan 11/12/22 07:15 Pulse 83 11/12/22 09:01 Pulse 87 11/12/22 09:01 Respiratory Rate 15 11/12/22 09:00 Respiratory Effort Normal, Non-Labored 11/12/22 07:15 Respiratory Depth Normal 11/12/22 07:15 Respiratory Pattern Normal 11/12/22 07:15 Blood Pressure 95/60 L 11/12/22 09:01 Blood Pressure Mean 69 11/12/22 09:01 Blood Pressure Position Supine 11/12/22 07:15 Pulse Oximetry 98 11/12/22 07:20 Oxygen Delivery Method Room Air 11/12/22 07:15 Oxygen Flow Rate 0 11/12/22 07:15 Pain Level 7 11/12/22 10:50 Comment RN present during vitals 11/10/22 22:45 Intake & Output 11/11/22 11/12/22 11/12/22 23:59 11:59 23:59 Intake Total 1145.437 / 0586.880 6930.623 / 2146.623 Output Total 1750 / 2975 2099 / 2099 Balance -604.563 / -1261.383 46.623 / 46.623 Weight 58.9 kg Intake: IV 55.437 / 383.617 106.623 / 106.623 Oral 1090 / 1330 2039 / 0 Output: Urine 1750 / 2975 2099 / 2099 Other: Urine Color Pale Light Norma Yellow Urine Appearance Clear Clear Urine Odor Normal None Comment voids in urinal. pt denies dysuria voids in urinal Stool Size Large Stool Characteristics Liquid Voiding Methods Urinal Urinal Data Completed and Pending Labs on day of discharge: Labs from last 24 hours 11/08/22 14:19 ALISSON Scrn Quantitative 0.2 Anti-Mitochondrial Ab <0.1 Anti-Smooth Muscle Ab Negative Preliminary micro results at discharge 11/08/22 18:25 Blood Culture - Preliminary Blood NO GROWTH 72 HOURS 11/09/22 16:43 Blood Culture - Preliminary Blood NO GROWTH 48 HOURS 11/09/22 16:43 Blood Culture - Preliminary Blood NO GROWTH 48 HOURS 11/08/22 18:49 Blood Culture - Preliminary Blood Staph hominis ssp hominis PFSH All Active Problems (Updated 11/12/22 @ 15:21 by Dinorah Corbett) Hepatic dysfunction (Acute) Abdominal pain (Acute) Nausea & vomiting (Acute) Fatty liver (Acute) IV drug user (Acute) Alcohol abuse (Chronic) Transaminitis (Acute) Gallbladder polyp (Acute) GI bleeding (Chronic) Chronic pancreatitis (Chronic) Dilated pancreatic duct (Acute) Opioid abuse (Acute) DVT prophylaxis (Acute) Discharge planning issues (Acute) Thrombocytopenia (Chronic) Portal hypertensive gastropathy (Acute) Duodenitis (Acute) Alcohol withdrawal (Acute) Nicotine dependence (Acute) Unsheltered homelessness (Acute) Homelessness (Acute) Agitation (Acute) COVID-19 (Acute) Alcohol withdrawal (Acute) Acute pancreatitis (Acute) Duodenal mass (Acute) Alcoholism (Acute) Infected abrasion of skin of right ankle (Acute) Infected abrasion of skin of left ankle (Acute) Agitation (Acute) Polysubstance use disorder (Acute) Transaminitis (Acute) Contusion of right knee (Acute) Lyme disease (Acute) Abrasion (Acute) Trauma (Acute) Inflammatory arthritis (Acute) Alcoholic ketoacidosis (Acute) Vomiting (Acute) Abdominal pain (Acute) Alcoholic ketoacidosis (Acute) Abdominal pain with vomiting (Acute) Depression with anxiety (Acute) Family history of schizophrenia (Chronic) Father Migraine with aura (Acute) Homeless (Acute) Colitis (Acute) Alcoholic fatty liver (Acute) Nausea and vomiting (Acute) Hypoglycemia (Acute) Severe depression (Chronic) Delirium (Acute) Alcohol abuse (Chronic) Heroin abuse (Chronic) Elevated transaminase level (Acute) Chronic back pain (Chronic) Anxiety, generalized (Chronic) Medical History Depression History of alcohol abuse Opiate addiction Surgical History No significant past surgical history Family History (System 11/12/22 @ 15:21 by Dinorah Corbett) Mother Heart disease Asthma Father No problems noted. Sister Asthma Sister No problems noted. Brother No problems noted. Grandfather Essential hypertension Heart disease Asthma Grandfather Essential hypertension Heart disease Grandmother No problems noted. Grandmother No problems noted. Son No problems noted. Daughter No problems noted. Daughter Asthma Mother Heart disease Diabetes Father Heart disease Stroke Hypertension Self No problems noted. Sister Diabetes Hypertension Maternal Grandmother Cancer type Social History (System 11/12/22 @ 15:21 by Dinorah Corbett) Smoking/Tobacco Use Status: Current every day Tobacco Type: cigarettes Smoking packs per day: 1 Smoking cigarettes per day: 20.0 Years smoked: 30 Smoking pack- years: 30.00 Counseling given: provider counseling and support medications Smoking risk assessment performed?: Yes Alcohol Intake: current Alcohol Intake frequency: 3 or more drinks per day Alcohol type: hard liquor Counseling given: Yes Counseling provided: provider counseling Drug use: Daily Substance use type: marijuana, IV drugs and other Details: fentanyl Counseling given: Yes Counseling provided: provider counseling Details: States has used some oxycotin from his doctor, denies heroin use. past IV drug user. 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
--- NOTE | 2022-11-12 17:05 | PDOC.CMDIS ---
Date of service: 11/12/22 Time of Service: 17:05 LACE Index Scoring Tool Questions: Length of Stay (in days): 4 - 6 Was the patient admitted via the E.D.?: Yes E.D. Visits: 3 Answers: Total Score: 10 Risk of Readmission: High Risk Care Management Discharge Plan Reason for Hospitalization: acute liver injury Discharge Plan: Jose is discharged to the community. He is encouraged to follow up with community providers and discharge plan of care as instructioned. Patient/Family Education Needs: Review discharge instructions, limitations, medications and plan to follow up with community providers.
[2022-11-12 23:25] LABS: Anaplasma phagocytophilum Negative (Negative); B. miyamotoi PCR Negative (Negative); Babesia divergens/MO-1 Negative (Negative); Babesia duncani Negative (Negative); Babesia microti Negative (Negative); Ehrlichia chaffeensis Negative (Negative); Ehrlichia ewingii/canis Negative (Negative); Ehrlichia muris eauclairensis Negative (Negative)
[2022-11-20 13:20] LABS: Buprenorphine Negative ng/mL (Cutoff: 5.0); Norbuprenorphine 27.6 ng/mL (Cutoff: 2.5)
== END 2022-11-12 14:30 | disposition home or self-care (01) | DRG 384 ==
LOC: ER 14:15 → ICU 15:46
PROVIDERS: Internal Medicine; Surgery; Admitting Provider Internal Medicine; Emergency Provider Nurse Practitioner Family; Visit Provider Internal Medicine
PROC: 0DJ68ZZ Inspection of Stomach, Via Natural or Artificial Opening Endoscopic (ICD-10-PCS; CPT 43235; principal; 2022-11-09 13:30)
DX: K26.9 Duodenal ulcer, unspecified as acute or chronic, without hemorrhage or perforation (principal); F10.139 Alcohol abuse with withdrawal, unspecified; K86.0 Alcohol-induced chronic pancreatitis; K76.6 Portal hypertension; R74.01 Elevation of levels of liver transaminase levels; K76.0 Fatty (change of) liver, not elsewhere classified; D69.6 Thrombocytopenia, unspecified; F11.10 Opioid abuse, uncomplicated; F19.90 Other psychoactive substance use, unspecified, uncomplicated; F17.210 Nicotine dependence, cigarettes, uncomplicated; F12.90 Cannabis use, unspecified, uncomplicated; K82.4 Cholesterolosis of gallbladder; K29.80 Duodenitis without bleeding; K52.9 Noninfective gastroenteritis and colitis, unspecified; K31.89 Other diseases of stomach and duodenum; R19.5 Other fecal abnormalities; K86.89 Other specified diseases of pancreas; Z59.02 Unsheltered homelessness; K70.10 Alcoholic hepatitis without ascites; K59.00 Constipation, unspecified
CPT/HCPCS: 43235; 36415; 36416; 36569; 80048; 80053; 80076; 80307; 80348; 82962; 83516; 83690; 84145; 86038; 86255; 86617; 86704; 86709; 86803; 86850; 86900; 86901; 87040; 87077; 87340; 87389; 87637; 87798; 93005; 96361; 96374; 96375; 96376; 99285; 74177; 74181; 76700; 80320; 80329; 81003; 81015; 82140; 82607; 83036; 83540; 83550; 83605; 83735; 84100; 84443; 85014; 85018; 85025; 85610; 85730; 86140; 86618; 86664; 86665; 87186; 93010; 99232; 99239; 99291; J1170; J1885; J2060; J2405; J3490

== ENCOUNTER 2022-11-20 11:32 | Emergency (ER) | payer MEDICAID, SELFPAY ==
[2022-11-20] VITALS (21 sets, daily range): BP systolic 116–141; BP diastolic 73–85; PULSE 59–96; RESP 0–23; TEMP 36.4; O2SAT 98–100
--- NOTE | 2022-11-20 11:45 | DI.CT_ITS ---
Exam(s) CT ABDOMEN PELVIS W EXAM: CT ABDOMEN PELVIS W CLINICAL HISTORY: abd pain. TECHNIQUE: Imaging Protocol: Axial computed tomography images with coronal and sagittal reformatted images were created and reviewed CONTRAST MATERIAL: Intravenous: Omnipaque-350 100cc Oral: None COMPARISON: CT CT ABDOMEN PELVIS W from 06/03/2022 FINDINGS: VISUALIZED LUNG BASES: No nodules nor pleural effusions evident. ABDOMEN: There is no ascites. LIVER: There are no focal hepatic lesions evident. No dilated intrahepatic ducts. GALLBLADDER/BILIARY: No obvious gallbladder pathology. CBD is not dilated. PANCREAS: Multiple parenchymal calcifications are again noted throughout the length of the pancreas, with the largest calcification again noted to be in the pancreatic head and there is dilatation of th e pancreatic duct proximal to this with maximum duct measurement= there is no prominent peripancreati c streaking nor peripancreatic fluid collection. 7.5 mm The duodenal C-loop surrounding the pancreatic head is patulous. SPLEEN: Spleen size remains normal. No splenic lesions. Splenic and portal veins are patent. No ob vious varices. ADRENALS: Unremarkable KIDNEYS:No cysts evident. No solid renal masses. No calculi nor hydronephrosis.. ABDOMINAL AORTA: Abdominal aorta is not enlarged. LYMPH NODES:There is no retroperitoneal nor paraaortic adenopathy. ABDOMINAL WALL: No evidence of significant anterior abdominal wall nor inguinal hernia. GI: There is no evidence of bowel obstruction, free air, nor abscess. PELVIS: GI: Appendix difficult to identify is separate structure. No obvious appendicitis.No evidence of sig moid diverticulitis.However, there is slight uniform thickening of the wall of the sigmoid which may indicate an element colitis. LYMPH NODES: There is no intrapelvic nor inguinal adenopathy. REPRODUCTIVE: Prostate not enlarged. URINARY BLADDER: Uniformly mildly thickened urinary bladder wall. No diverticuli. OSSEOUS: No fractures and no significant osseous lesions. IMPRESSION: 1. Chronic calcific pancreatitis, as described above. The pancreatic duct measures up to 7-8 mm and appears to be partially occluded by a large calcification at the level the pancreatic head. There is presently no obvious peripancreatic streaking but correlation with appropriate blood work recommende d. 2. The surrounding duodenal C-loop is patulous. This may be related to the pancreatic pathology. 3. Previously described calculi in the kidneys are no longer seen. Presently no focal renal findings are no hydronephrosis. 4. Appendix is not able to be isolated is a separate structure. No obvious appendicitis. Subtle colitis pattern in the sigmoid. RADIATION DOSE DELIVERED: 558.87mGy.cm Total DLP DATA REPOSITORY: All CT scans at this facility are submitted to the National Radiology Data Registry (NRDR) Dose Index Registry (DIR) with the [employer] (ACR). RADIATION OPTIMIZATION: All CT scans at this facility use at least one of these dose optimization te chniques: automated exposure control; mA and/or kV adjustment per patient size (includes targeted exa ms where dose is matched to clinical indication); or iterative reconstruction.
--- NOTE | 2022-11-20 11:49 | W.ED.GENAD ---
Discharge Plan Discharge Details Chief Complaint: Abd Prob Primary Care Provider: Joel Martinez ED Provider: Camron Wallace Home Meds and New Rx's Prescriptions: No Action (DME) Tegaderm-Absorbent 3 inx3.75 in See Rx Instructions .Route .MEDSUPPLY Qty: 10 0RF Rx Instructions: As directed on both ankles, change every 3-5 days until healed gabapentin 800 mg tablet 800 mg PO TID Qty: 270 3RF buprenorphine-naloxone 8-2 mg film 1 film SL DAILY buprenorphine-naloxone [Suboxone] 12-3 mg film 1 film sublingual DAILY Rx Instructions: TAKES IN ADDITION TO 8MG FILM, BUT HASN'T HAD IN OVER A WEEK - 02/23/22 gabapentin 800 mg Tablet 800 mg PO TID Rx Instructions: LAST FILLED IN MAY OF 2022 FOR A 90 DAY SUPPLY buprenorphine-naloxone 8-2 mg Film 2 film sublingual DAILY Rx Instructions: LAST PICKED UP 10/30/22 FROM [facility] FOR A 7 DAY SUPPLY doxycycline hyclate 100 mg tablet 100 mg PO BID Qty: 20 0RF Patient Comments: stopped taking amoxicillin 500 mg Capsule 1,000 mg PO BID 12 Days Qty: 48 0RF Patient Comments: stopped taking clarithromycin 500 mg Tablet 500 mg PO BID 12 Days Qty: 24 0RF Patient Comments: stopped taking sucralfate 1 gram Tablet 1 g PO Q6H Qty: 120 0RF pantoprazole 40 mg Tablet,Delayed Release (Dr/Ec) 40 mg PO BID@729,1999 30 Days Qty: 60 0RF bismuth subsalicylate [Stomach Relief] 262 mg/15 mL Suspension 17 ml PO QID 12 Days Qty: 816 0RF folic acid 1 mg Tablet 1 mg PO QAM Qty: 30 0RF thiamine mononitrate (vit B1) [Vitamin B-1 (mononitrate)] 100 mg Tablet 100 mg PO QAM Qty: 30 0RF Medical Decision Making 27-year-old chronic alcoholic, with chronic pancreatitis, opiate abuse, fatty acid, hepatic dysfunction who presents to the emergency department after waking up this morning with recurrent abdominal discomfort. He presents to the emergency department stating that he is having a lot of abdominal discomfort. The patient was treated with IV morphine and ondansetron as well as IV fluids. Labs were obtained which revealed mild elevation of his lactate. Fluid hydration was ordered. Rest of labs were somewhat unremarkable. CT scan of the abdomen pelvis did not reveal any acute abnormalities. He does have chronic disease surrounding the pancreas. At the time of signout to Dr. Peña, a repeat lactate was pending. If this lactate is clearing I believe the patient will be able to be discharged home. HPI General Date/Time Provider Initiated Documentation: 11/20/22 11:37. HPI Narrative: 37-year-old presents to the emergency room via EMS for diffuse abdominal discomfort. He is a patient who has recurrent pancreatitis/chronic pancreatitis secondary to EtOH use. States his last drink was yesterday. Has not drank today. He has diffuse abdominal discomfort. Not associated with vomiting but with some nausea. No fevers no chills. Related Data Home Medications Medication Instructions Recorded Confirmed buprenorphine 8 mg-naloxone 2 mg 1 film sublingual DAILY 11/22/19 11/20/22 sublingual film buprenorphine 12 mg-naloxone 3 mg 1 film sublingual DAILY 02/23/22 11/20/22 sublingual film (Suboxone) Tegaderm-Absorbent #10 ea 03/03/22 11/20/22 gabapentin 800 mg tablet 800 mg PO TID #270 tabs 03/03/22 11/20/22 buprenorphine 8 mg-naloxone 2 mg 2 film sublingual DAILY 11/08/22 11/20/22 sublingual film gabapentin 800 mg tablet 800 mg PO TID 11/08/22 11/20/22 amoxicillin 500 mg capsule 1,000 mg PO BID 12 days #48 caps 11/12/22 11/20/22 bismuth subsalicylate 262 mg/15 mL 17 ml PO QID 12 days #816 mL 11/12/22 11/20/22 oral suspension (Stomach Relief) clarithromycin 500 mg tablet 500 mg PO BID 12 days #24 tabs 11/12/22 11/20/22 doxycycline hyclate 100 mg tablet 100 mg PO BID #20 tabs 11/12/22 11/20/22 folic acid 1 mg tablet 1 mg PO QAM #30 tabs 11/12/22 11/20/22 pantoprazole 40 mg tablet,delayed 40 mg PO BID@0730,2000 30 days #60 11/12/22 11/20/22 release tabs sucralfate 1 gram tablet 1 g PO Q6H #120 tabs 11/12/22 11/20/22 thiamine mononitrate (vit B1) 100 100 mg PO QAM #30 tabs 11/12/22 11/20/22 mg tablet (Vitamin B-1 (mononitrate)) Previous Rx's Medication Instructions Recorded Tegaderm-Absorbent #10 ea 03/03/22 gabapentin 800 mg tablet 800 mg PO TID #270 tabs 03/03/22 amoxicillin 500 mg capsule 1,000 mg PO BID 12 days #48 caps 11/12/22 bismuth subsalicylate 262 mg/15 mL 17 ml PO QID 12 days #816 mL 11/12/22 oral suspension (Stomach Relief) clarithromycin 500 mg tablet 500 mg PO BID 12 days #24 tabs 11/12/22 doxycycline hyclate 100 mg tablet 100 mg PO BID #20 tabs 11/12/22 folic acid 1 mg tablet 1 mg PO QAM #30 tabs 11/12/22 pantoprazole 40 mg tablet,delayed 40 mg PO BID@0730,1999 30 days #60 11/12/22 release tabs sucralfate 1 gram tablet 1 g PO Q6H #120 tabs 11/12/22 thiamine mononitrate (vit B1) 100 100 mg PO QAM #30 tabs 11/12/22 mg tablet (Vitamin B-1 (mononitrate)) Allergies Allergy/AdvReac Type Severity Reaction Status Date / Time No Known Allergies Allergy Verified 11/12/22 15:21 General Stated Complaint: Abd Prob KAVEH: 3 Review of Systems Narrative: 10 point review of systems negative unless otherwise specified in the HPI. PFSH All Active Problems (Updated 11/12/22 @ 15:21 by Dinorah Corbett) Hepatic dysfunction (Acute) Abdominal pain (Acute) Nausea & vomiting (Acute) Fatty liver (Acute) IV drug user (Acute) Alcohol abuse (Chronic) Transaminitis (Acute) Gallbladder polyp (Acute) GI bleeding (Chronic) Chronic pancreatitis (Chronic) Dilated pancreatic duct (Acute) Opioid abuse (Acute) DVT prophylaxis (Acute) Discharge planning issues (Acute) Thrombocytopenia (Chronic) Portal hypertensive gastropathy (Acute) Duodenitis (Acute) Alcohol withdrawal (Acute) Nicotine dependence (Acute) Unsheltered homelessness (Acute) Homelessness (Acute) Agitation (Acute) COVID-19 (Acute) Alcohol withdrawal (Acute) Acute pancreatitis (Acute) Duodenal mass (Acute) Alcoholism (Acute) Infected abrasion of skin of right ankle (Acute) Infected abrasion of skin of left ankle (Acute) Agitation (Acute) Polysubstance use disorder (Acute) Transaminitis (Acute) Contusion of right knee (Acute) Lyme disease (Acute) Abrasion (Acute) Trauma (Acute) Inflammatory arthritis (Acute) Alcoholic ketoacidosis (Acute) Vomiting (Acute) Abdominal pain (Acute) Alcoholic ketoacidosis (Acute) Abdominal pain with vomiting (Acute) Depression with anxiety (Acute) Family history of schizophrenia (Chronic) Father Migraine with aura (Acute) Homeless (Acute) Colitis (Acute) Alcoholic fatty liver (Acute) Nausea and vomiting (Acute) Hypoglycemia (Acute) Severe depression (Chronic) Delirium (Acute) Alcohol abuse (Chronic) Heroin abuse (Chronic) Elevated transaminase level (Acute) Chronic back pain (Chronic) Anxiety, generalized (Chronic) Medical History Depression History of alcohol abuse Opiate addiction Surgical History No significant past surgical history Family History (System 11/12/22 @ 15:21 by Dinorah Corbett) Mother Heart disease Asthma Father No problems noted. Sister Asthma Sister No problems noted. Brother No problems noted. Grandfather Essential hypertension Heart disease Asthma Grandfather Essential hypertension Heart disease Grandmother No problems noted. Grandmother No problems noted. Son No problems noted. Daughter No problems noted. Daughter Asthma Mother Heart disease Diabetes Father Heart disease Stroke Hypertension Self No problems noted. Sister Diabetes Hypertension Maternal Grandmother Cancer type Social History (System 11/12/22 @ 15:21 by Dinorah Corbett) Smoking/Tobacco Use Status: Current every day Tobacco Type: cigarettes Smoking packs per day: 1 Smoking cigarettes per day: 20.0 Years smoked: 30 Smoking pack-years: 30.00 Counseling given: provider counseling and support medications Smoking risk assessment performed?: Yes Alcohol Intake: current Alcohol Intake frequency: 0-2 drinks per day Alcohol type: beer and hard liquor Counseling given: Yes Counseling provided: provider counseling and other Drug use: Never Substance use type: marijuana, IV drugs, methamphetamine and other Details: fentanyl Counseling given: Yes Counseling provided: provider counseling Details: States has used some oxycotin from his doctor, denies heroin use. past IV drug user. 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 PERRLA EOMI MMM anicteric Supple neck Chest clear to auscultation bilaterally Heart regular rate Abdomen soft diffuse tenderness no rebound. Back normal inspection Skin no rashes Neuro 2-12 grossly intact Psych flat affect Course Vital Signs Vital signs: Vital Signs Temperature 36.4 C 11/20/22 11:32 Pulse 83 11/20/22 11:32 Respiratory Rate 15 11/20/22 11:32 Blood Pressure 124/80 11/20/22 11:32 Pulse Oximetry 100 11/20/22 11:32 Temperature 36.4 C 11/20/22 11:32 Temperature Source Oral 11/20/22 11:32 Pulse 83 11/20/22 11:32 Respiratory Rate 15 11/20/22 11:32 Blood Pressure 124/80 11/20/22 11:32 Blood Pressure Position Sitting 11/20/22 11:32 Pulse Oximetry 100 11/20/22 11:32 Oxygen Delivery Method Room Air 11/20/22 11:32 Oxygen Flow Rate 0 11/20/22 11:32 Pain Level 9 11/20/22 11:32
[2022-11-20 12:12] LABS: Lactate 3.4 mmol/L (0.6-1.4)
[2022-11-20] MEDS: Ondansetron 4 MG/2 ML VIAL IVP (12:12)
[2022-11-20 12:13] LABS: Abs Immature Grans 0.11 10^3/uL (0.0-0.06); Absolute Basophil Count 0.04 10^3/uL (0.0-0.2); Absolute Lymphocyte Count 2.12 10^3/uL (1.2-3.4); Absolute Monocyte Count 0.35 10^3/uL (0.1-0.8); Absolute Neutrophil Count 3.12 10^3/uL (1.2-6.7); Basophils % 0.7; HCT 45.2 % (40.0-50.0); HGB 16.2 g/dL (13.5-17.5); Immature Grans % 1.9; Lymphocytes % 36.9; MCH 34.5 pg (27.0-33.0); MCHC 35.8 % (32.0-36.0); MCV 96 fL (80-95); Monocytes % 6.1; Neutrophils % 54.4; RDW-SD 42.4 fL; WBC 5.74 10^3/uL (4.4-10.8)
[2022-11-20] MEDS: Normal Saline 1,000 ML 1000 ML IV (12:13)
[2022-11-20 12:30] LABS: ALT 89 U/L (16-63); AST 62 U/L (15-37); Albumin 4.3 g/dL (3.4-5.0); Alkaline Phosphatase 153 U/L (46-116); Anion Gap 13.9 mmol/L (3-11); BUN 2 mg/dL (7-18); Bilirubin, Direct 0.1 mg/dL (0.0-0.2); Bilirubin, Total 0.4 mg/dL (0.2-1.0); CO2 25.1 mmol/L (21.0-32.0); CREATININE 0.9 mg/dL (0.70-1.30); Calcium 9.5 mg/dL (8.5-10.1); Chloride 99 mmol/L (98-107); Estimated GFR 111.42 (mL/min/1.73m2); Glucose 111 mg/dL (74-106); Lipase 11 U/L (16-77); Potassium 3.5 mmol/L (3.5-5.1); Sodium 138 mmol/L (136-145); Total Protein 8.9 g/dL (6.4-8.2); Troponin I < 50 ng/L (<or=60)
[2022-11-20] MEDS: MORPHine 4 MG/ML SYR IVP (12:38)
[2022-11-20 12:45] LABS: Platelet Count 800 10^3/uL (130-400)
[2022-11-20] MEDS: Normal Saline Flush 10 ML SYR IJ (12:52)
[2022-11-20] MEDS: Omnipaque 350 MG/ML 500 ML BTL-Imaging package 100 ML IJ (12:53)
[2022-11-20] MEDS: Normal Saline - Diluent 50 ML VIAL IJ (12:53)
[2022-11-20 14:14] LABS: Bilirubin Negative (Negative); Blood Negative (Negative); Clarity Clear (Clear); Glucose Negative (Negative); Ketones 15 mg/dL (Negative); Leukocyte Esterase Negative (Negative); Nitrite Negative (Negative); Specific Gravity <= 1.005 (1.005-1.025); Urobilinogen 0.2 mg/dL (Up to 0.2)
[2022-11-20 14:24] LABS: Bacteria Rare HPF (Negative); C & S Indicated? No; Casts Negative LPF (Negative); Crystals Negative HPF (Negative); Epithelial Cells Negative HPF (Negative); Mucus Trace (Negative); Other Cells Negative (Negative); RBC Negative HPF (0-2); WBC Negative HPF (0-5)
[2022-11-20] MEDS: Lactated Ringers 1,000 ML 1000 ML IV (14:24)
[2022-11-20] MEDS: LORazepam 2 MG/ML VIAL IVP (14:24)
--- NOTE | 2022-11-20 15:06 | NUR.NOTE ---
Nursing Note: PT noted to be asleep at this time.
[2022-11-20 15:49] LABS: Lactate 2.5 mmol/L (0.6-1.4)
--- NOTE | 2022-11-20 16:11 | ED.PROG_ITS ---
Date of service: 11/20/22 Time of Service: 16:12 Medical Decision Making I received signout on this 37-year-old male with a history of alcohol abuse. His lactate improved with fluids. Given his history of alcoholism my suspicion is highest for type B lactic acidosis secondary to decreased utilization rather than sepsis as he was neither hypotensive nor tachycardic. Given return indications and discharge with outpatient PCP follow-up as needed. His CT showed chronic pancreatitis. Sign Out Sign Out Data: Sign Out Comment: Mr. Duque is a [age]-year-old gentleman with recurrent abdominal pain. This is most probably related to his chronic alcohol use and recurrent chronic pancreatitis. Labs were unremarkable except for mild elevation of the lactate. CT scan did not reveal any new acute findings. Evita ent requiring more IV fluids and repeat lactate before discharge. Last updated by Camron Wallace MD at 11/20/22 15:39 Discharge Plan Disposition Patient Disposition: Home Discharge Details Clinical Impression: Alcohol abuse with intoxication with complication, Acidosis, lactic Primary Care Provider: Joel Martinez ED Provider: Nik Peña Home Meds and New Rx's Prescriptions: Continued (DME) Tegaderm-Absorbent 3 inx3.75 in See Rx Instructions .Route .MEDSUPPLY Qty: 10 0RF Rx Instructions: As directed on both ankles, change every 3-5 days until healed gabapentin 800 mg tablet 800 mg PO TID Qty: 270 3RF buprenorphine-naloxone 8-2 mg film 1 film SL DAILY buprenorphine-naloxone [Suboxone] 12-3 mg film 1 film sublingual DAILY Rx Instructions: TAKES IN ADDITION TO 8MG FILM, BUT HASN'T HAD IN OVER A WEEK - 02/23/22 gabapentin 800 mg Tablet 800 mg PO TID Rx Instructions: LAST FILLED IN MAY OF 2022 FOR A 90 DAY SUPPLY buprenorphine-naloxone 8-2 mg Film 2 film sublingual DAILY Rx Instructions: LAST PICKED UP 10/30/22 FROM [facility] FOR A 7 DAY SUPPLY doxycycline hyclate 100 mg tablet 100 mg PO BID Qty: 20 0RF Patient Comments: stopped taking amoxicillin 500 mg Capsule 1,000 mg PO BID 12 Days Qty: 48 0RF Patient Comments: stopped taking clarithromycin 500 mg Tablet 500 mg PO BID 12 Days Qty: 24 0RF Patient Comments: stopped taking sucralfate 1 gram Tablet 1 g PO Q6H Qty: 120 0RF pantoprazole 40 mg Tablet,Delayed Release (Dr/Ec) 40 mg PO BID@ 30 Days Qty: 60 0RF bismuth subsalicylate [Stomach Relief] 262 mg/15 mL Suspension 17 ml PO QID 12 Days Qty: 816 0RF folic acid 1 mg Tablet 1 mg PO QAM Qty: 30 0RF thiamine mononitrate (vit B1) [Vitamin B-1 (mononitrate)] 100 mg Tablet 100 mg PO QAM Qty: 30 0RF Discharge Instructions Instructions: Abuse of Alcohol (ED) Additional Instructions: Please read all of the information that accompanies these instructions. You were seen in the emergency department for your alcohol abuse.Your labs show that your kidneys are working well. Please schedule an appointment with your primary care provider later this week. Please return to the emergency department if if you develop nausea vomiting or cannot eat or drink.
== END 2022-11-20 16:46 | disposition home or self-care (01) ==
PROVIDERS: Emergency Medicine; Emergency Provider Emergency Medicine; PCP Family Medicine
DX: F10.129 Alcohol abuse with intoxication, unspecified (principal); E87.20 Acidosis, unspecified
CPT/HCPCS: 36415; 80053; 80076; 83690; 96361; 96374; 96375; 99285; 74177; 81003; 81015; 83605; 83735; 84484; 85025; 99284; J2060; J2270; J2405

== ENCOUNTER 2022-11-20 17:35 | Inpatient (IN) | payer MEDICAID, SELFPAY ==
[2022-11-20 17:47] VITALS: BP 116/62; PULSE 80; RESP 16; TEMP 37.2; O2SAT 97
[2022-11-21] VITALS (102 sets, daily range): BP systolic 111–130; BP diastolic 67–80; PULSE 55–109; RESP 11–32; TEMP 36.6–37.8; O2SAT 95–100
[2022-11-21] MEDS: Ondansetron O.D.T. 4 MG TABEF (01:45)
[2022-11-21 02:32] LABS: Abs Immature Grans 0.12 10^3/uL (0.0-0.06); Absolute Basophil Count 0.03 10^3/uL (0.0-0.2); Absolute Lymphocyte Count 2.67 10^3/uL (1.2-3.4); Absolute Monocyte Count 0.84 10^3/uL (0.1-0.8); Absolute Neutrophil Count 4.85 10^3/uL (1.2-6.7); Basophils % 0.4; HCT 38.6 % (40.0-50.0); Immature Grans % 1.4; Lymphocytes % 31.4; MCH 34.5 pg (27.0-33.0); MCV 99 fL (80-95); MPV 8.9 fL (8.0-11.0); Monocytes % 9.9; Neutrophils % 56.9; Platelet Count 641 10^3/uL (130-400); RBC 3.91 10^6/uL (4.36-5.78); RDW 12.3 % (11.8-14.1); RDW-SD 44.1 fL; WBC 8.51 10^3/uL (4.4-10.8)
[2022-11-21 02:35] LABS: HGB 13.5 g/dL (13.5-17.5)
[2022-11-21] MEDS: LORazepam 2 MG/ML VIAL 4 MG IVP (02:41)
[2022-11-21] MEDS: Normal Saline 1,000 ML 1000 ML IV (02:41)
[2022-11-21 02:45] LABS: ALT 69 U/L (16-63); AST 46 U/L (15-37); Albumin 3.5 g/dL (3.4-5.0); Alkaline Phosphatase 122 U/L (46-116); Anion Gap 11.8 mmol/L (3-11); BUN 4 mg/dL (7-18); Bilirubin, Total 0.4 mg/dL (0.2-1.0); CO2 25.2 mmol/L (21.0-32.0); Calcium 8.5 mg/dL (8.5-10.1); Chloride 100 mmol/L (98-107); ETHANOL BLOOD 42.8 mg/dL (<10); Estimated GFR 98.18 (mL/min/1.73m2); Glucose 78 mg/dL (74-106); Lipase < 10 U/L (16-77); Potassium 3.4 mmol/L (3.5-5.1); Sodium 137 mmol/L (136-145)
[2022-11-21] MEDS: Pantoprazole 40 MG VIAL IVP ×3 (02:55→19:48)
[2022-11-21] MEDS: Dicyclomine 20 MG TAB PO (02:55)
[2022-11-21] MEDS: Sucralfate 1 GM TAB 2 GM PO (02:55)
[2022-11-21] MEDS: chlordiazePOXIDE 25 MG CAP 50 MG PO (03:31)
--- NOTE | 2022-11-21 04:57 | W.ED.GENAD ---
Discharge Plan Disposition Patient Disposition: Admit to [facility] Discharge Details Chief Complaint: ETOHWithdr Clinical Impression: Alcohol withdrawal, Homelessness, Chronic calcific pancreatitis Primary Care Provider: Joel Martinez ED Provider: Jarrod Vaughn Home Meds and New Rx's Prescriptions: No Action (DME) Tegaderm-Absorbent 3 inx3.75 in See Rx Instructions .Route .MEDSUPPLY Qty: 10 0RF Rx Instructions: As directed on both ankles, change every 3-5 days until healed gabapentin 800 mg tablet 800 mg PO TID Qty: 270 3RF buprenorphine-naloxone 8-2 mg film 1 film SL DAILY buprenorphine-naloxone [Suboxone] 12-3 mg film 1 film sublingual DAILY Rx Instructions: TAKES IN ADDITION TO 8MG FILM, BUT HASN'T HAD IN OVER A WEEK - 02/23/22 gabapentin 800 mg Tablet 800 mg PO TID Rx Instructions: LAST FILLED IN MAY OF 2022 FOR A 90 DAY SUPPLY buprenorphine-naloxone 8-2 mg Film 2 film sublingual DAILY Rx Instructions: LAST PICKED UP 10/30/22 FROM [facility] FOR A 7 DAY SUPPLY doxycycline hyclate 100 mg tablet 100 mg PO BID Qty: 20 0RF Patient Comments: stopped taking amoxicillin 500 mg Capsule 1,000 mg PO BID 12 Days Qty: 48 0RF Patient Comments: stopped taking clarithromycin 500 mg Tablet 500 mg PO BID 12 Days Qty: 24 0RF Patient Comments: stopped taking sucralfate 1 gram Tablet 1 g PO Q6H Qty: 120 0RF pantoprazole 40 mg Tablet,Delayed Release (Dr/Ec) 40 mg PO BID@0730,1999 30 Days Qty: 60 0RF bismuth subsalicylate [Stomach Relief] 262 mg/15 mL Suspension 17 ml PO QID 12 Days Qty: 816 0RF folic acid 1 mg Tablet 1 mg PO QAM Qty: 30 0RF thiamine mononitrate (vit B1) [Vitamin B-1 (mononitrate)] 100 mg Tablet 100 mg PO QAM Qty: 30 0RF Medical Decision Making This is a 37-year-old male with a past medical history of chronic alcohol use, recurrent pancreatitis, current homelessness, Lyme disease, previous GI bleed, opioid abuse, hepatic dysfunction, presents today for evaluation of intoxication and withdrawal. Patient was here earlier this morning and was seen and assessed by Dr. Wallace. He had complaint of abdominal discomfort, nausea and vomiting. He was rehydrated, lactate was elevated and it was suspected to be secondary to a type B lactic acidosis. CT scan of the abdomen and pelvis was performed and showed no acute process, but did show evidence of chronic calcific pancreatitis with no acute component of pancreatitis. He was rehydrated, and discharged. motor coach bus driver came and assessed the patient, and the patient elected for discharge. Shortly thereafter he went drank some additional alcohol and came back to the ER and checked back in. Patient was in the emergency department waiting room, and had been triaged and checked back in and was in the waiting room for 6 hours. I came on my shift at 11 PM and did see and assess the patient. He states currently that he thinks he might be withdrawing, and continues to have some mild epigastric pain. He denies any other complaints at this time. On my initial physical exam upon my arrival to the emergency department after the patient had been here for 6 hours he appeared notably stable. No evidence of an acute surgical abdomen. Minimal achiness in the epigastric region. He was sleeping calmly when he was brought back to the room. He showed no significant tremor or other abnormality. Decision was made to allow the patient to continue to rest. He is currently homeless and has no place to go. He denies any homicidal or suicidal ideations. 2 AM On reassessment patient now he is somewhat tremulous, and states that he feels anxious and feels like he is withdrawing still. We will perform laboratory assessment, give a dose of 4 mg of IV Ativan, give chlordiazepoxide 50 mg, IV Protonix 20 mg, gently rehydrate, give GI cocktail and Carafate, monitor closely and reassess. 5:03 AM Patient feeling much better, he feels more relaxed, nausea and abdominal pain is notably improved. He feels well. We will continue to monitor. 5:51 AM Patient notably feels better for his abdomen, and there is no indication for reimaging, and shows no signs of an acute surgical abdomen whatsoever. However he still feels notably tremulous. CIWA scores around 7-10. He is very concerned that if he goes home since he is homeless he will fall into the wrong crowd, not able to get Librium outpatient, and go back to drinking. He is very worried that he will fail and not be able to get help if he leaves now. I discussed the risks and benefits of home versus admission, and at this time he is requesting admission which I do feel is reasonable given his extenuating circumstances. We will admit. Discussed the case with hospitalist Dr. Alex, he agrees with the plan. I will place admission orders at his request on his behalf. I have extensively reviewed the treatment plan with the patient. I have addressed all patient concerns at this time. I have also discussed the plan with the admitting physician and they agree with the current assessment and plan and have agreed to assume responsibility for the patient. All parties demonstrate verbal understanding and agreement with our assessment and plan at this time. The documentation in this chart was dictated using Needl dictation software. Please excuse any dictation errors. HPI General Date/Time Provider Initiated Documentation: 11/20/22 17:52. HPI Narrative: This is a 37-year-old male with a past medical history of chronic alcohol use, recurrent pancreatitis, current homelessness, Lyme disease, previous GI bleed, opioid abuse, hepatic dysfunction, presents today for evaluation of intoxication and withdrawal. Patient was here earlier this morning and was seen and assessed by Dr. Wallace. He had complaint of abdominal discomfort, nausea and vomiting. He was rehydrated, lactate was elevated and it was suspected to be secondary to a type B lactic acidosis. CT scan of the abdomen and pelvis was performed and showed no acute process, but did show evidence of chronic calcific pancreatitis with no acute component of pancreatitis. He was rehydrated, and discharged. motor coach bus driver came and assessed the patient, and the patient elected for discharge. Shortly thereafter he went drank some additional alcohol and came back to the ER and checked back in. Patient was in the emergency department waiting room, and had been triaged and checked back in and was in the waiting room for 6 hours. I came on my shift at 11 PM and did see and assess the patient. He states currently that he thinks he might be withdrawing, and continues to have some mild epigastric pain. He denies any other complaints at this time. Related Data Home Medications Medication Instructions Recorded Confirmed buprenorphine 8 mg-naloxone 2 mg 1 film sublingual DAILY 11/22/19 11/20/22 sublingual film buprenorphine 12 mg-naloxone 3 mg 1 film sublingual DAILY 02/23/22 11/20/22 sublingual film (Suboxone) Tegaderm-Absorbent #10 ea 03/03/22 11/20/22 gabapentin 800 mg tablet 800 mg PO TID #270 tabs 03/03/22 11/20/22 buprenorphine 8 mg-naloxone 2 mg 2 film sublingual DAILY 11/08/22 11/20/22 sublingual film gabapentin 800 mg tablet 800 mg PO TID 11/08/22 11/20/22 amoxicillin 500 mg capsule 1,000 mg PO BID 12 days #48 caps 11/12/22 11/20/22 bismuth subsalicylate 262 mg/15 mL 17 ml PO QID 12 days #816 mL 11/12/22 11/20/22 oral suspension (Stomach Relief) clarithromycin 500 mg tablet 500 mg PO BID 12 days #24 tabs 11/12/22 11/20/22 doxycycline hyclate 100 mg tablet 100 mg PO BID #20 tabs 11/12/22 11/20/22 folic acid 1 mg tablet 1 mg PO QAM #30 tabs 11/12/22 11/20/22 pantoprazole 40 mg tablet,delayed 40 mg PO BID@ 30 days #60 11/12/22 11/20/22 release tabs sucralfate 1 gram tablet 1 g PO Q6H #120 tabs 11/12/22 11/20/22 thiamine mononitrate (vit B1) 100 100 mg PO QAM #30 tabs 11/12/22 11/20/22 mg tablet (Vitamin B-1 (mononitrate)) Previous Rx's Medication Instructions Recorded Tegaderm-Absorbent #10 ea 03/03/22 gabapentin 800 mg tablet 800 mg PO TID #270 tabs 03/03/22 amoxicillin 500 mg capsule 1,000 mg PO BID 12 days #48 caps 11/12/22 bismuth subsalicylate 262 mg/15 mL 17 ml PO QID 12 days #816 mL 11/12/22 oral suspension (Stomach Relief) clarithromycin 500 mg tablet 500 mg PO BID 12 days #24 tabs 11/12/22 doxycycline hyclate 100 mg tablet 100 mg PO BID #20 tabs 11/12/22 folic acid 1 mg tablet 1 mg PO QAM #30 tabs 11/12/22 pantoprazole 40 mg tablet,delayed 40 mg PO BID@ 30 days #60 11/12/22 release tabs sucralfate 1 gram tablet 1 g PO Q6H #120 tabs 11/12/22 thiamine mononitrate (vit B1) 100 100 mg PO QAM #30 tabs 11/12/22 mg tablet (Vitamin B-1 (mononitrate)) Allergies Allergy/AdvReac Type Severity Reaction Status Date / Time No Known Allergies Allergy Verified 11/12/22 15:21 General Stated Complaint: ETOHWithdr KAVEH: 3 Review of Systems All systems reviewed & are unremarkable except as noted in HPI and below PFSH All Active Problems (Updated 11/21/22 @ 05:55 by Jarrod Vaughn, DO) Alcohol abuse with intoxication with complication (Acute) Acidosis, lactic (Acute) Alcohol withdrawal (Acute) Homelessness (Acute) Chronic calcific pancreatitis (Acute) Hepatic dysfunction (Acute) Abdominal pain (Acute) Nausea & vomiting (Acute) Fatty liver (Acute) IV drug user (Acute) Alcohol abuse (Chronic) Transaminitis (Acute) Gallbladder polyp (Acute) GI bleeding (Chronic) Chronic pancreatitis (Chronic) Dilated pancreatic duct (Acute) Opioid abuse (Acute) DVT prophylaxis (Acute) Discharge planning issues (Acute) Thrombocytopenia (Chronic) Portal hypertensive gastropathy (Acute) Duodenitis (Acute) Alcohol withdrawal (Acute) Nicotine dependence (Acute) Unsheltered homelessness (Acute) Homelessness (Acute) Agitation (Acute) COVID-19 (Acute) Alcohol withdrawal (Acute) Acute pancreatitis (Acute) Duodenal mass (Acute) Alcoholism (Acute) Infected abrasion of skin of right ankle (Acute) Infected abrasion of skin of left ankle (Acute) Agitation (Acute) Polysubstance use disorder (Acute) Transaminitis (Acute) Contusion of right knee (Acute) Lyme disease (Acute) Abrasion (Acute) Trauma (Acute) Inflammatory arthritis (Acute) Alcoholic ketoacidosis (Acute) Vomiting (Acute) Abdominal pain (Acute) Alcoholic ketoacidosis (Acute) Abdominal pain with vomiting (Acute) Depression with anxiety (Acute) Family history of schizophrenia (Chronic) Father Migraine with aura (Acute) Homeless (Acute) Alcoholic fatty liver (Acute) Severe depression (Chronic) Alcohol abuse (Chronic) Heroin abuse (Chronic) Elevated transaminase level (Acute) Chronic back pain (Chronic) Anxiety, generalized (Chronic) Medical History Depression DKA (diabetic ketoacidosis) History of alcohol abuse Opiate addiction Pancreatitis Surgical History No significant past surgical history No significant past surgical history Family History Mother Heart disease Asthma Father No problems noted. Sister Asthma Sister No problems noted. Brother No problems noted. Grandfather Essential hypertension Heart disease Asthma Grandfather Essential hypertension Heart disease Grandmother No problems noted. Grandmother No problems noted. Son No problems noted. Daughter No problems noted. Daughter Asthma Mother Heart disease Diabetes Father Heart disease Stroke Hypertension Self No problems noted. Sister Diabetes Hypertension Maternal Grandmother Cancer type Social History Smoking/Tobacco Use Status: Current every day Tobacco Type: cigarettes Smoking packs per day: 1 Smoking cigarettes per day: 20.0 Years smoked: 30 Smoking pack-years: 30.00 Counseling given: provider counseling and support medications Smoking risk assessment performed?: Yes Alcohol Intake: current Alcohol Intake frequency: 0-2 drinks per day Alcohol type: beer and hard liquor Counseling given: Yes Counseling provided: provider counseling and other Drug use: Never Substance use type: marijuana, IV drugs, methamphetamine and other Details: fentanyl Counseling given: Yes Counseling provided: provider counseling Details: States has used some oxycotin from his doctor, denies heroin use. past IV drug user. 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 3.ENT: Atraumatic external nose and ears. Moist MM. Neck: Symmetric, trachea midline, No thyromegaly. 4.CVS: +S1/S2, No murmurs or gallops. Peripheral pulses 2+ and equal in all extremities. Brisk capillary refill in all extremities. 5.RESP: Unlabored respiratory effort. Clear to auscultation bilaterally. No wheezes rales or rhonchi 6.GI: Soft, nondistended, no guarding or rebound. Mild achiness in the epigastric region. 7.MSK: Normocephalic/Atraumatic, Extremities w/o deformity or ttp No cyanosis or clubbing, Normal movement of all extremities 8.Skin: Warm, Dry. No rashes or lesions. 9.Neuro: university administrator II-XII grossly intact. Sensation grossly intact, no focal neurologic deficits. 10.Psych: (AAO) x3. Appropriate mood and affect Course Vital Signs Vital signs: Vital Signs Temperature 37.2 C 11/20/22 17:47 Pulse 80 11/20/22 17:47 Respiratory Rate 16 11/20/22 17:47 Blood Pressure 116/62 11/20/22 17:47 Pulse Oximetry 97 11/20/22 17:47 Temperature 36.7 C 11/21/22 02:30 Temperature Source Oral 11/21/22 02:30 Pulse 67 11/21/22 02:30 Respiratory Rate 22 11/21/22 02:30 Respiratory Effort Normal 11/21/22 01:47 Respiratory Pattern Normal 11/21/22 01:47 Blood Pressure 120/70 11/21/22 02:30 Blood Pressure Position Sitting 11/20/22 17:47 Pulse Oximetry 95 11/21/22 02:30 Oxygen Delivery Method Room Air 11/21/22 02:30 Oxygen Flow Rate 0 11/21/22 02:30 Pain Level 0 11/20/22 17:47 Lab/Test Results Lab/Test Results: Laboratory Tests Range/Units 11/21/22 11/21/22 02:15 02:15 WBC (4.4-10.8) 10^3/uL 8.51 RBC (4.36-5.78) 10^6/uL 3.91 L Hgb (13.5-17.5) g/dL 13.5 D Hct (40.0-50.0) % 38.6 L MCV (80-95) fL 99 H MCH (27.0-33.0) pg 34.5 H MCHC (32.0-36.0) % 35.0 RDW (11.8-14.1) % 12.3 Plt Count (130-400) 10^3/uL 641 H MPV (8.0-11.0) fL 8.9 Immature Gran % 1.4 Neutrophils % 56.9 Lymphocytes % 31.4 Monocytes % 9.9 Eosinophils % 0.0 Basophils % 0.4 Nucleated RBC % (0.0-0.3) % 0.0 Absolute Neutrophils (1.2-6.7) 10^3/uL 4.85 Absolute Lymphocytes (1.2-3.4) 10^3/uL 2.67 Absolute Monocytes (0.1-0.8) 10^3/uL 0.84 H Absolute Eosinophils (0.0-0.7) 10^3/uL 0.00 Absolute Basophils (0.0-0.2) 10^3/uL 0.03 Sodium (136-145) mmol/L 137 Potassium (3.5-5.1) mmol/L 3.4 L Chloride (98-107) mmol/L 100 Carbon Dioxide (21.0-32.0) mmol/L 25.2 Anion Gap (3-11) mmol/L 11.8 H BUN (7-18) mg/dL 4 L Creatinine (0.70-1.30) mg/dL 1.0 Est GFR (CKD-EPI 2020) (mL/min/1.73m2) 98.18 Glucose (74-106) mg/dL 78 Calcium (8.5-10.1) mg/dL 8.5 Total Bilirubin (0.2-1.0) mg/dL 0.4 AST (15-37) U/L 46 H ALT (16-63) U/L 69 H Alkaline Phosphatase (46-116) U/L 122 H Total Protein (6.4-8.2) g/dL 7.0 Albumin (3.4-5.0) g/dL 3.5 Lipase (16-77) U/L < 10 L Ethyl Alcohol (<10) mg/dL 42.8 H Critical Care Time Critical Care Time Critical Care Time: Yes Total Critical Care Time: 30 Attestation: Upon my evaluation, this patient had a high probability of imminent or life-threatening deterioration, which required my direct attention, intervention, and personal management. I have personally provided 30 minutes of critical care time exclusive of time spent on separately billable procedures. Time includes review of laboratory data, radiology results, discussion with consultants, and monitoring for potential decompensation. Interventions were performed as documented. PAWSS Have you Been Recently Intoxicated or Drunk Within the Last 30 days?: Yes Have you Ever Experienced Previous Episodes of Alcohol Withdrawal?: Yes Have you ever Experienced Withdrawal Seizures?: Yes Have you ever Experienced Delirium Tremens(DT)s?: Yes Have you ever undergone Alcohol Rehabilitation Treatment (i.e, inpt ot outpatient treatment programs)?: Yes Have you ever Experienced Blackouts?: Yes Have you ever Combined Alcohol with other Downers within the last 90 days?: Yes Have you ever Combined Alcohol with any other Substance of Abuse during the last 90 days?: Yes Positive Blood Alcohol level on Presentation? [PCS.BAL]: Yes Evidence of Increased Autonomic Activity (i.e. HR>120, tremor, sweating, agitation, nausea)?: Yes Result: 10
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
[2022-11-21 07:13] LABS: *AMPHETAMINES SCREEN URINE Negative (Negative); *BARBITURATES SCREEN URINE Negative (Negative); *BENZODIAZEPINES SCREEN URINE Negative (Negative); Cannabinoids THC Positive (Negative); Cocaine Screen,Urine Negative (Negative); METHADONE URINE SCREEN Negative (Negative); OPIATES URINE SCREEN Negative (Negative)
[2022-11-21 07:17] LABS: Tricyclic Antidepressants Negative (Negative)
--- NOTE | 2022-11-21 07:23 | W.PM.HP.N ---
Date of service: 11/21/22 Time of Service: 07:24 Assessment and Plan Assessment and plan (1) Duodenal ulcer disease: Status: Acute Assessment and plan: Duodenal ulcer seen on last admission is the most likely cause of his acutely worse pain. The location and radiation make sense for this, as does the fact that it is worse when he doesn't eat. He was discharged on high dose PPI, carafate, and antibiotics but has not been taking these. He does have a history of chronic pancreatitis but had a normal lipase and no acute inflammation on CT. For now, resume high dose pantoprazole BID and carafate. (2) Alcohol withdrawal: Status: Acute Assessment and plan: He received chlorodiazepoxide in the emergency room, will continue with benzodiazepine protocol. It is unclear how much of his agitation is alcohol withdrawal related. Per his EtOH level in the ED he was drinking more that he described. He will go to the ICU given his history of severe withdraw from multiple substances and agitation. It is likely he will need IV therapy to manage. (3) Opioid abuse: Status: Acute Assessment and plan: Ongoing active opioid use disorder with dependance and IV use a significant issue. He has not done well with suboxone and asked for treatment with methadone. I will start this on 30mg and monitor. He will need a follow up plan with rehab or [facility] before discharge. (4) Chronic calcific pancreatitis: Status: Acute Assessment and plan: This does not appear to be active as above. He wants to eat so I wrote for a regular diet. (5) Hepatic dysfunction: Status: Acute Assessment and plan: He clearly has chronic liver inflammation consistent with alcoholic liver disease. His level of fibrosis is less certain, though the history of documented portal hypertensive gastropathy suggests cirrhosis. However cirrhosis not evident on CT, no splenomegaly or dilated veins. He had a chronic hepatitis work up last visit. Will continue to monitor. (6) Unsheltered homelessness: Status: Acute Assessment and plan: His homelessness is clearly contributing to his inability to adhere to his medical regimen or regular diet. Work with case management. (7) Acute Lyme disease: Status: Acute Assessment and plan: His Lyme Ab was positive last visit on 11/13. I'm not sure how this relates to his current presentation, but it seems he did not finish a full course of at least 10 days of doxycycline, so I will resume this. (8) Nicotine dependence: Status: Acute Assessment and plan: NRT patch and inhaler (9) DVT prophylaxis: Status: Acute Assessment and plan: He is low risk at this point for DVT. Reconsider if he ends up being bed bound (10) Discharge planning issues: Status: Acute Assessment and plan: He did meet with recovery collector. He is interested in inpatient rehab and restarting methadone. Homelessness is a major issue as above. History of Present Illness History of Present Illness Chief Complaint: abdominal pain Narrative: 37 yo M with opioid and alcohol dependance with active use, history of chronic pancreatitis, and recent diagnosis of duodenal ulcer who presented last night to the emergency room with 2 days of progressive epigastric abdominal pain. Pain is sharp, severe, epigastric radiating to the back. States it started because he wasn't eating, homeless and no food. Associated with vomiting and loose stools, 2/day. No blood in stool but he has noted some black stools. He is very hungry right now. This pain is similar to the last time he was here. He was initially evaluated early in the day in the emergency room, he had a negative CT and mildly elevated lactate that normalized with hydration and was discharged. He presented again to the emergency room within 1-2 hours of discharge last night. He was admitted 11/08- for alcohol withdrawl and abdominal pain and was treated for alcohol and opioid withdrawal. His lipase was normal at that time. He was briefly on a precedex drip. He had an endscopy that showed duodenal ulcer. He wasn't taking his antibiotics prescribed at last admission for empiric treatment of h. pylori. Regarding substance use, he last drank 2 days prior to admission. He states he only had one beer. He states he has been using 2 tickets of heroin/fentanyl daily until today. He tried to take his suboxone 2 days ago but it made him more sick. He doesn't thinks suboxone is working, did better on methadone in the past. Review of Systems Constitutional Constitutional: Reports body ache(s), Denies chills, Reports difficulty sleeping, Denies fever(s), Reports lethargy and Denies poor appetite Eyes Eyes: Denies change in vision and Denies irritation ENT Ears, Nose, Mouth, and Throat: Denies dysphagia, Denies dizziness, Denies nasal congestion, Denies nasal discharge and Denies sore throat Cardiovascular Cardiovascular: Denies chest pain, Denies leg edema, Denies lightheadedness, Reports palpitations (feel pounding but not fast), Denies dyspnea and Denies orthopnea Respiratory Respiratory: Denies cough, Denies excessive phlegm production, Denies dyspnea and Denies wheezing Gastrointestinal Gastrointestinal: Reports as per HPI, Denies hematochezia, Denies coffee ground emesis, Denies constipation, Denies dysphagia and Denies hematemesis Genitourinary Genitourinary: Denies hematuria, Denies dysuria and Denies urinary incontinence Integumentary/Breasts Skin/Breast: Denies rash and Denies skin ulcer Neurologic Neurologic: Denies confusion, Denies dizziness and Denies sensory deficit Psychiatric Psychiatric: Reports anxiety, Denies confusion, Reports depression and Denies mood swings Endocrine Endocrine: Reports palpitations (feel pounding but not fast) Hematologic/Lymphatic Hematologic/Lymphatic: Denies easy bleeding Allergic/Immunologic Allergic/Immunologic: Denies wheezing PFSH All Active Problems (Updated 11/21/22 @ 07:53 by Nik Paul) Acute Lyme disease (Acute) Duodenal ulcer disease (Acute) Alcohol abuse with intoxication with complication (Acute) Acidosis, lactic (Acute) Alcohol withdrawal (Acute) Chronic calcific pancreatitis (Acute) Hepatic dysfunction (Acute) Abdominal pain (Acute) Nausea & vomiting (Acute) Fatty liver (Acute) IV drug user (Acute) Alcohol abuse (Chronic) Transaminitis (Acute) Gallbladder polyp (Acute) GI bleeding (Chronic) Dilated pancreatic duct (Acute) Opioid abuse (Acute) DVT prophylaxis (Acute) Discharge planning issues (Acute) Thrombocytopenia (Chronic) Portal hypertensive gastropathy (Acute) Nicotine dependence (Acute) Unsheltered homelessness (Acute) Homelessness (Acute) Agitation (Acute) COVID-19 (Acute) Alcohol withdrawal (Acute) Acute pancreatitis (Acute) Duodenal mass (Acute) Alcoholism (Acute) Infected abrasion of skin of right ankle (Acute) Infected abrasion of skin of left ankle (Acute) Agitation (Acute) Polysubstance use disorder (Acute) Contusion of right knee (Acute) Lyme disease (Acute) Abrasion (Acute) Trauma (Acute) Inflammatory arthritis (Acute) Alcoholic ketoacidosis (Acute) Vomiting (Acute) Abdominal pain (Acute) Alcoholic ketoacidosis (Acute) Abdominal pain with vomiting (Acute) Depression with anxiety (Acute) Family history of schizophrenia (Chronic) Father Migraine with aura (Acute) Homeless (Acute) Alcoholic fatty liver (Acute) Severe depression (Chronic) Alcohol abuse (Chronic) Heroin abuse (Chronic) Elevated transaminase level (Acute) Chronic back pain (Chronic) Anxiety, generalized (Chronic) Medical History (Updated 11/21/22 @ 07:53 by Nik Paul) Depression DKA (diabetic ketoacidosis) Duodenitis History of alcohol abuse Opiate addiction Pancreatitis Surgical History No significant past surgical history No significant past surgical history Family History Mother Heart disease Asthma Father No problems noted. Sister Asthma Sister No problems noted. Brother No problems noted. Grandfather Essential hypertension Heart disease Asthma Grandfather Essential hypertension Heart disease Grandmother No problems noted. Grandmother No problems noted. Son No problems noted. Daughter No problems noted. Daughter Asthma Mother Heart disease Diabetes Father Heart disease Stroke Hypertension Self No problems noted. Sister Diabetes Hypertension Maternal Grandmother Cancer type Social History Smoking/Tobacco Use Status: Current every day Tobacco Type: cigarettes Smoking packs per day: 1 Smoking cigarettes per day: 20.0 Years smoked: 30 Smoking pack-years: 30.00 Counseling given: provider counseling and support medications Smoking risk assessment performed?: Yes Alcohol Intake: current Alcohol Intake frequency: 0-2 drinks per day Alcohol type: beer and hard liquor Counseling given: Yes Counseling provided: provider counseling and other Drug use: Never Substance use type: marijuana, IV drugs, methamphetamine and other Details: fentanyl Counseling given: Yes Counseling provided: provider counseling Details: States has used some oxycotin from his doctor, denies heroin use. past IV drug user. 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: No Working smoke detector in home: Yes Carbon monox detector in home: Yes Do you feel safe at home: Yes Do you feel safe in your relationship?: Yes Additional Social history: Homeless Meds Allergies and Home Medications Allergies Allergy/AdvReac Type Severity Reaction Status Date / Time No Known Allergies Allergy Verified 11/12/22 15:21 Home Medications Medication Instructions Recorded Confirmed Type buprenorphine 8 mg-naloxone 2 mg 1 film sublingual DAILY 11/22/19 11/20/22 History sublingual film buprenorphine 12 mg-naloxone 3 mg 1 film sublingual DAILY 02/23/22 11/20/22 History sublingual film (Suboxone) Tegaderm-Absorbent #10 ea 03/03/22 11/20/22 Rx gabapentin 800 mg tablet 800 mg PO TID #270 tabs 03/03/22 11/20/22 Rx buprenorphine 8 mg-naloxone 2 mg 2 film sublingual DAILY 11/08/22 11/20/22 History sublingual film gabapentin 800 mg tablet 800 mg PO TID 11/08/22 11/20/22 History amoxicillin 500 mg capsule 1,000 mg PO BID 12 days #48 caps 11/12/22 11/20/22 Rx bismuth subsalicylate 262 mg/15 mL 17 ml PO QID 12 days #816 mL 11/12/22 11/20/22 Rx oral suspension (Stomach Relief) clarithromycin 500 mg tablet 500 mg PO BID 12 days #24 tabs 11/12/22 11/20/22 Rx doxycycline hyclate 100 mg tablet 100 mg PO BID #20 tabs 11/12/22 11/20/22 Rx folic acid 1 mg tablet 1 mg PO QAM #30 tabs 11/12/22 11/20/22 Rx pantoprazole 40 mg tablet,delayed 40 mg PO BID@0730,2000 30 days #60 11/12/22 11/20/22 Rx release tabs sucralfate 1 gram tablet 1 g PO Q6H #120 tabs 11/12/22 11/20/22 Rx thiamine mononitrate (vit B1) 100 100 mg PO QAM #30 tabs 11/12/22 11/20/22 Rx mg tablet (Vitamin B-1 (mononitrate)) Exam Narrative Exam Narrative: GEN: Sleepy, dozing off during interview, but become alert enoough to answer questions, oriented, and cooperative. No acute distress at rest. Some yawning. HEENT: Head atraumatic. Conjunctiva clear, no icterus. PEERL, EOMI. Pupils 3-4mm room light. some rhinorrhea. MMM, OP benign. Neck is supple with no masses or lymphadenopathy, trachea midline LUNGS: CTAB with normal effort CV: RRR with no murmurs, gallops, or rubs. ABD: active BS, soft, diffusely tender worse in epigastrum with guarding with deep palpation. no masses palpated. EXT: no cyanosis, clubbing, or edema MSK: No joint redness or swelling NEURO: CN 2-12 grossly intact. Normal movement of 4 extremities. Normal speech and coordination SKIN: No rashes or open wounds. PSYCH: mood and affect mildly depressed. Normal thought process. no evidence of hallucination Results Imaging Abdomen CT scan report/results: report reviewed (. Chronic calcific pancreatitis, as described above. The pancreatic duct measures up to 7-8 mm and appears to be partially occluded by a large calcification at the level the pancreatic head. There is presently no obvious peripancreatic streaking but correlation with appropriate blood work recommen) Labs 11/21/22 02:15 11/21/22 02:15 Labs: Laboratory Results - last 24 hr 11/21/22 11/21/22 11/21/22 02:15 02:15 06:40 WBC 8.51 RBC 3.91 L Hgb 13.5 D Hct 38.6 L MCV 99 H MCH 34.5 H MCHC 35.0 RDW 12.3 Plt Count 641 H MPV 8.9 Immature Gran % 1.4 Neutrophils % 56.9 Lymphocytes % 31.4 Monocytes % 9.9 Eosinophils % 0.0 Basophils % 0.4 Nucleated RBC % 0.0 Absolute Neutrophils 4.85 Absolute Lymphocytes 2.67 Absolute Monocytes 0.84 H Absolute Eosinophils 0.00 Absolute Basophils 0.03 Sodium 137 Potassium 3.4 L Chloride 100 Carbon Dioxide 25.2 Anion Gap 11.8 H BUN 4 L Creatinine 1.0 Est GFR (CKD-EPI 2020) 98.18 Glucose 78 Calcium 8.5 Total Bilirubin 0.4 AST 46 H ALT 69 H Alkaline Phosphatase 122 H Total Protein 7.0 Albumin 3.5 Lipase < 10 L Urine Opiates Screen Negative Urine Methadone Screen Negative Ur Barbiturates Screen Negative Ur Tricyclics Screen Negative Ur Amphetamines Screen Negative U Benzodiazepines Scrn Negative Urine Cocaine Screen Negative Ur THC Screen Positive A Ethyl Alcohol 42.8 H Last Vital Signs Temp 36.6 C 11/21/22 06:48 Pulse 65 11/21/22 06:48 Resp 16 11/21/22 06:48 BP 111/72 11/21/22 06:48 Pulse Ox 97 11/21/22 06:48 PAWSS Have you Been Recently Intoxicated or Drunk Within the Last 30 days?: Yes Have you Ever Experienced Previous Episodes of Alcohol Withdrawal?: Yes Have you ever Experienced Withdrawal Seizures?: Yes Have you ever Experienced Delirium Tremens(DT)s?: Yes Have you ever undergone Alcohol Rehabilitation Treatment (i.e, inpt ot outpatient treatment programs)?: Yes Have you ever Experienced Blackouts?: Yes Have you ever Combined Alcohol with other Downers within the last 90 days?: Yes Have you ever Combined Alcohol with any other Substance of Abuse during the last 90 days?: Yes Positive Blood Alcohol level on Presentation? [PCS.BAL]: Yes Evidence of Increased Autonomic Activity (i.e. HR>120, tremor, sweating, agitation, nausea)?: Yes Result: 10 Time Spent Time spent with Patient: >75 minutes Time was spent: preparing to see the patient(eg.review tests), obtaining and/or reviewing separately otained hiistory, ordering medications,tests, procedures, referring, communicating with other health intensive care medicine specialist, indepentently interpreting results and counseling the patient
--- NOTE | 2022-11-21 07:47 | NUR.NOTE ---
Seizure pad applied. Patient indicates he has not eaten in 5 days. Patient agrees to take a shower.Nursing Note:
[2022-11-21] MEDS: Multivitamin TAB 1 TAB PO (08:01)
[2022-11-21] MEDS: Thiamine 100 MG TAB PO (08:01)
[2022-11-21] MEDS: Folic Acid 1 MG TAB PO (08:01)
[2022-11-21] MEDS: LORazepam 1 MG TAB PO/SL (08:49)
[2022-11-21] MEDS: Nicotine 7 MG/24 HR PATCH TD (08:50)
[2022-11-21] MEDS: Doxycycline Hyclate 100 MG CAP PO ×2 (08:59→19:48)
[2022-11-21] MEDS: Normal Saline Flush 10 ML SYR IVP ×6 (09:00→23:56)
[2022-11-21] MEDS: Methadone Liquid 10 MG/ML 30 MG PO (09:56)
[2022-11-21] MEDS: Sucralfate 1 GM TAB PO ×3 (11:09→23:56)
[2022-11-21] MEDS: LORazepam 2 MG/ML VIAL IVP ×4 (12:09→23:56)
--- NOTE | 2022-11-21 14:06 | NUR.NOTE ---
Patient given a cup of coffee.Nursing Note:
--- NOTE | 2022-11-21 14:23 | NUR.NOTE ---
Patient's clothing sent to laundry appropriately labelled. Patient given a cup of coffee.Nursing Note:
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
[2022-11-21] MEDS: LORazepam 1 MG TAB 2 MG PO ×2 (14:54→19:48)
--- NOTE | 2022-11-21 16:22 | NUR.NOTE ---
Patient is sleeping. No 16:00 CIWA taken.Nursing Note:
--- NOTE | 2022-11-21 16:59 | NUR.NOTE ---
Patient in good control. Vital signs stable. Patient is feeding himself his supper.Nursing Note:
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
[2022-11-21] MEDS: Acetaminophen 325 MG TAB PO (21:00)
[2022-11-22] VITALS (95 sets, daily range): BP systolic 87–139; BP diastolic 63–93; PULSE 55–128; RESP 11–33; TEMP 36.3–37.5; O2SAT 94–100
[2022-11-22] MEDS: Normal Saline Flush 10 ML SYR IVP ×7 (02:04→23:41)
[2022-11-22] MEDS: LORazepam 2 MG/ML VIAL IVP ×7 (02:04→22:33)
[2022-11-22] MEDS: Sucralfate 1 GM TAB PO ×4 (06:23→23:40)
[2022-11-22] MEDS: Nicotine 7 MG/24 HR PATCH TD (07:44)
[2022-11-22] MEDS: Folic Acid 1 MG TAB PO (07:45)
[2022-11-22] MEDS: LORazepam 1 MG TAB 2 MG PO ×3 (07:45→20:16)
[2022-11-22] MEDS: Multivitamin TAB 1 TAB PO (07:45)
[2022-11-22] MEDS: Thiamine 100 MG TAB PO (07:45)
[2022-11-22] MEDS: Doxycycline Hyclate 100 MG CAP PO ×2 (07:45→20:15)
[2022-11-22] MEDS: Methadone Liquid 10 MG/ML 30 MG PO (07:46)
[2022-11-22] MEDS: Pantoprazole 40 MG VIAL IVP ×2 (07:46→20:15)
[2022-11-22] MEDS: chlordiazePOXIDE 25 MG CAP PO ×3 (09:04→13:33)
[2022-11-22 11:52] LABS: ALT 60 U/L (16-63); AST 46 U/L (15-37); Albumin 3.5 g/dL (3.4-5.0); Alkaline Phosphatase 103 U/L (46-116); Anion Gap 12.2 mmol/L (3-11); BUN 6 mg/dL (7-18); Bilirubin, Direct 0.1 mg/dL (0.0-0.2); Bilirubin, Total 0.4 mg/dL (0.2-1.0); CO2 22.8 mmol/L (21.0-32.0); CREATININE 0.9 mg/dL (0.70-1.30); Calcium 8.9 mg/dL (8.5-10.1); Chloride 103 mmol/L (98-107); Estimated GFR 111.42 (mL/min/1.73m2); Glucose 140 mg/dL (74-106); Sodium 138 mmol/L (136-145); Total Protein 6.9 g/dL (6.4-8.2)
[2022-11-22 11:56] LABS: Potassium 5.1 mmol/L (3.5-5.1)
--- NOTE | 2022-11-22 15:25 | W.PM.PROGNOT ---
Date of Service Date of service: 11/22/22 Time of Service: 15:25 Assessment and Plan Assessment and plan (1) Alcohol withdrawal: Status: Acute Assessment and plan: Schedule librium/titrate dose to control symptoms. I have also added valium for sx uncontrolled by librium + lorazepam. (2) Duodenal ulcer disease: Status: Acute Assessment and plan: Seen on last admission. The patient is not reporting so much pain today and he is tolerating PO. His nausea may or may not be related to the ulcer. Continue PPI, carafate. (3) Opioid abuse: Status: Acute Assessment and plan: Continue methadone w/ plan for rehab or [facility] on discharge. (4) Chronic calcific pancreatitis: Status: Acute Assessment and plan: I do not think he is having an acute flare of this. Tolerating a regular diet - continue. (5) Hepatic dysfunction: Status: Acute Assessment and plan: LFTs look better. Probahly related to EtOH. Hepatitis work up on last admission. F/u as outpatient. No clear evidence of cirrhosis on imaging. (6) Unsheltered homelessness: Status: Acute Assessment and plan: Care management was made aware of his homelesseness. (7) Acute Lyme disease: Status: Acute Assessment and plan: Continue doxycycline, recognizing it could be quite caustic to esophageal and gastric mucosa. (8) Nicotine dependence: Status: Acute Assessment and plan: Continue nicotine inhaler. (9) DVT prophylaxis: Status: Acute Assessment and plan: The patient is ambulatory and I agree that he is at a low risk for DVT, also given his age. Does not require chemical or mechanical DVT ppx at this time. (10) Discharge planning issues: Status: Acute Assessment and plan: FUll code Keep in ICU. Homeless. Interested in substance abuse rehab on discharge. Total Critical Care Time 30 minutes. Subjective Subjective Interval history since last seen: Mr Burns is very anxious. His CIWA scores have gone up to as high as 27. The patient admits to hallucinating seeing and hearing his mother and sister, and he knows his sister is . Actually, this a recent development, and he thinks that his sister's is triggering his drinking. He has a headache, feels dizzy, shaky, anxious, nauseated, can't sleep. He does not feel suicidal now, but felt if we were to discharge him like this, he would want to commit suicide. I need to stop drinking once and for all. He also talked about being scared to go back to his tent. Exam Narrative Exam Narrative: General: Anxious male who is A&Ox3, tearful, tremulous HEENT: EOMI, MMM Heart: RRR, no m/r/g Lungs: CTAB Abdomen: soft, nontender, nondistended Extremities: no edema, clubbing, or cyanosis. Objective Last Vital Signs Temp 37.0 C 11/22/22 07:07 Pulse 73 11/22/22 13:38 Resp 15 11/22/22 13:40 BP 130/87 11/22/22 13:38 Pulse Ox 99 11/22/22 07:06 Laboratory Results - last 24 hr 11/22/22 11:10 Sodium 138 Potassium 5.1 D Chloride 103 Carbon Dioxide 22.8 Anion Gap 12.2 H BUN 6 L Creatinine 0.9 Est GFR (CKD-EPI 2020) 111.42 Glucose 140 H Calcium 8.9 Magnesium 2.0 Total Bilirubin 0.4 Conjugated Bilirubin 0.1 AST 46 H ALT 60 Alkaline Phosphatase 103 Total Protein 6.9 Albumin 3.5 PAWSS Have you Been Recently Intoxicated or Drunk Within the Last 30 days?: Yes Have you Ever Experienced Previous Episodes of Alcohol Withdrawal?: Yes Have you ever Experienced Withdrawal Seizures?: Yes Have you ever Experienced Delirium Tremens(DT)s?: Yes Have you ever undergone Alcohol Rehabilitation Treatment (i.e, inpt ot outpatient treatment programs)?: Yes Have you ever Experienced Blackouts?: Yes Have you ever Combined Alcohol with other Downers within the last 90 days?: Yes Have you ever Combined Alcohol with any other Substance of Abuse during the last 90 days?: Yes Positive Blood Alcohol level on Presentation? [PCS.BAL]: No Evidence of Increased Autonomic Activity (i.e. 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
[2022-11-22] MEDS: chlordiazePOXIDE 25 MG CAP 50 MG PO ×2 (16:12→20:16)
[2022-11-22 21:47] LABS: HCT 38.1 % (40.0-50.0); HGB 13.2 g/dL (13.5-17.5); MCH 34.7 pg (27.0-33.0); MCHC 34.6 % (32.0-36.0); MCV 100 fL (80-95); MPV 9.1 fL (8.0-11.0); Platelet Count 516 10^3/uL (130-400); RDW 12.4 % (11.8-14.1); RDW-SD 45.4 fL; WBC 10.49 10^3/uL (4.4-10.8)
[2022-11-23] VITALS (26 sets, daily range): BP systolic 115–130; BP diastolic 74–93; PULSE 61–86; RESP 14–31; TEMP 36.5–38.5; O2SAT 97–98
--- NOTE | 2022-11-23 | NUR.NOTE ---
Nursing Note: Nursing Note: Removed razor from patients room due to prior Code [place] incident during last admission less than two weeks ago and concerns regarding staff safety. Commode emptied of very large BM. Patient upset regarding removal of razor from room and reasoning was explained to him. Patient with extreme redness noted on face and upper body. Patient asked when his next Librium was due and explained that it was scheduled for QID or 4x/day and the next scheduled dose is at 8:30 am. Cleaned up floor from spilled coffee/hot chocolate knocked over accidentally by patient. Initialized on 11/23/22 01:03 - END OF NOTE
[2022-11-23] MEDS: LORazepam 1 MG TAB 2 MG PO ×5 (00:09→19:55)
[2022-11-23] MEDS: Acetaminophen 325 MG TAB PO ×2 (01:14→09:39)
--- NOTE | 2022-11-23 01:15 | NUR.NOTE ---
Nursing Note: Patient using tablet in room, calm and interactive. Provided Tylenol for bilateral headache pain.
[2022-11-23] MEDS: LORazepam 1 MG TAB (02:00)
[2022-11-23] MEDS: Normal Saline Flush 10 ML SYR IVP ×5 (03:00→19:55)
--- NOTE | 2022-11-23 03:00 | NUR.NOTE ---
Nursing Note:Patient cried when Right AC saline lock was removed. Saline lock was non-functional at the start of the shift and I just got a new site in the left wrist. Old site tape was partially off and patient was unable to state how that happened as it was intact on assessment. Catheter was intact and no s/s of infection at site. Dressing applied.
[2022-11-23] MEDS: Sucralfate 1 GM TAB PO ×3 (05:05→18:20)
[2022-11-23] MEDS: LORazepam 2 MG/ML VIAL IVP (05:05)
--- NOTE | 2022-11-23 06:15 | NUR.NOTE ---
Nursing Note: Patient pleasant and cooperative with lab person. First question to the me when I went in to assess the patient was when is my next medication due, i'm really wound up and could use something now. Explained that he just received 4mg of IV Lorazepam @ 0508 and will be receiving his Librium + Methadone + Oral Lorazepam on a scheduled basis during the day.
[2022-11-23 06:40] LABS: Abs Immature Grans 0.24 10^3/uL (0.0-0.06); Absolute Basophil Count 0.05 10^3/uL (0.0-0.2); Absolute Lymphocyte Count 3.39 10^3/uL (1.2-3.4); Absolute Monocyte Count 1.24 10^3/uL (0.1-0.8); Basophils % 0.4; HCT 39.7 % (40.0-50.0); HGB 13.7 g/dL (13.5-17.5); Immature Grans % 1.8; MCH 34.8 pg (27.0-33.0); MCHC 34.5 % (32.0-36.0); MCV 101 fL (80-95); MPV 9.2 fL (8.0-11.0); Monocytes % 9.5; Neutrophils % 62.3; Platelet Count 522 10^3/uL (130-400); RBC 3.94 10^6/uL (4.36-5.78); RDW 12.2 % (11.8-14.1); RDW-SD 45.7 fL; WBC 13.03 10^3/uL (4.4-10.8)
[2022-11-23 06:53] LABS: Absolute Neutrophil Count 8.12 10^3/uL (1.2-6.7)
[2022-11-23 07:03] LABS: ALT 52 U/L (16-63); AST 30 U/L (15-37); Albumin 3.3 g/dL (3.4-5.0); Alkaline Phosphatase 98 U/L (46-116); BUN 11 mg/dL (7-18); Bilirubin, Total 0.3 mg/dL (0.2-1.0); CREATININE 0.9 mg/dL (0.70-1.30); Calcium 8.8 mg/dL (8.5-10.1); Chloride 103 mmol/L (98-107); Estimated GFR 111.42 (mL/min/1.73m2); Glucose 107 mg/dL (74-106); Sodium 139 mmol/L (136-145); Total Protein 6.7 g/dL (6.4-8.2)
[2022-11-23 07:04] LABS: Bilirubin, Direct < 0.1 mg/dL (0.0-0.2)
[2022-11-23] MEDS: Nicotine 7 MG/24 HR PATCH TD (07:22)
[2022-11-23] MEDS: chlordiazePOXIDE 25 MG CAP 50 MG PO ×4 (07:23→19:55)
[2022-11-23] MEDS: Multivitamin TAB 1 TAB PO (07:23)
[2022-11-23] MEDS: Doxycycline Hyclate 100 MG CAP PO (07:23)
[2022-11-23] MEDS: Folic Acid 1 MG TAB PO (07:24)
[2022-11-23] MEDS: Methadone Liquid 10 MG/ML 30 MG PO (07:38)
[2022-11-23 08:00] LABS: Lab Add On Test DONE
[2022-11-23 08:28] LABS: C-Reactive Protein < 0.05 mg/dL (0.0-0.3)
[2022-11-23 08:36] LABS: Procalcitonin < 0.1 ng/mL
[2022-11-23] MEDS: Pantoprazole 40 MG VIAL IVP ×2 (08:53→19:54)
[2022-11-23] MEDS: Thiamine 100 MG TAB PO (08:54)
[2022-11-23] MEDS: diazePAM 10 MG/2 ML SYR IVP ×3 (09:35→18:20)
--- NOTE | 2022-11-23 12:24 | NUR.NOTE ---
Nursing Note: Earlier today when this nurse and Dr. Baker were in the patient's room, an orange vape pen was found attached to his right leg. The vape pen was removed from the room and put with the patient's personal belongings which are in the ICU managers office.
--- NOTE | 2022-11-23 12:44 | NUR.NOTE ---
Nursing Note: Patient asked to close the curtain so he could use the bathroom. When this nurse glanced at the room camera, patient was noted looking into the needle box on the wall. When this nurse walked into the room the patient quickly turned around. A few minutes later patient was seen using his necklace to try to access needles from the needle box. The needle box was removed from the room.
--- NOTE | 2022-11-23 17:12 | PGE_ITS ---
Date of Service Date of service: 11/23/22 Time of Service: 17:12 Assessment and Plan Assessment and plan (1) Alcohol withdrawal: Status: Acute Assessment and plan: Continued Scheduled librium at current dose. Continue prn valium and prn lorazepam per CIWA. Replace MVI, thiamine. (2) Fever: Status: Acute Assessment and plan: Potential sources: EtOH w/d, Lyme disease, atelectasis. Patient also reports pain in his RUE post infiltration of an IV. Will obtain US RUE. Procalcitonin is negative. No respiratory or urinary sx. I did order blood cultures, but will not start abx at this time. (3) Duodenal ulcer disease: Status: Acute Assessment and plan: Seen on last admission. Reports pain. Convert doxycycline to IV. His nausea may or may not be related to the ulcer. Continue PPI, carafate. (4) Opioid abuse: Status: Acute Assessment and plan: Continue methadone w/ plan for rehab or [facility] on discharge. (5) Chronic calcific pancreatitis: Status: Acute Assessment and plan: I do not think he is having an acute flare of this. Tolerating a regular diet - continue. (6) Hepatic dysfunction: Status: Acute Assessment and plan: LFTs nml today. Probably related to EtOH. Hepatitis work up on last admission. F/u as outpatient. No clear evidence of cirrhosis on imaging. (7) Unsheltered homelessness: Status: Acute Assessment and plan: Care management was made aware of his homelesseness. (8) Acute Lyme disease: Status: Acute Assessment and plan: Continue doxycycline, Converted to IV. Could be the cause of fever. (9) Nicotine dependence: Status: Acute Assessment and plan: Continue nicotine inhaler + patch. (10) DVT prophylaxis: Status: Acute Assessment and plan: The patient is ambulatory and I agree that he is at a low risk for DVT, also given his age. Does not require chemical or mechanical DVT ppx at this time. (11) Discharge planning issues: Status: Acute Assessment and plan: FUll code Keep in ICU. Homeless. Interested in substance abuse rehab on discharge. Total Critical Care Time 30 minutes. Subjective Subjective Interval history since last seen: Mr Burns remains restless. He did not sleep well. He states he is not suicidal or homicidal. He still has some abdominal pain (periumbilical). Denies dizziness, CP, SOB. Endorses some nausea, but has been eating quite well. He feels that because he didn't sleep, he is delirious. Nursing noted that the patient was trying to get something out of the sharps disposal container. This has been now taken out of the room. Febrile to 38.0. Exam Narrative Exam Narrative: General: Anxious male who is A&Ox3, tearful, less tremulous HEENT: EOMI, MMM Heart: RRR, no m/r/g Lungs: CTAB Abdomen: soft, nontender, nondistended Extremities: no edema, clubbing, or cyanosis. Objective Last Vital Signs Temp 38.0 C H 11/23/22 15:35 Pulse 81 11/23/22 15:35 Resp 21 11/23/22 12:06 BP 119/76 11/23/22 12:06 Pulse Ox 98 11/23/22 15:35 Laboratory Results - last 24 hr 11/22/22 11/23/22 11/23/22 21:35 06:15 06:15 WBC 10.49 13.03 H RBC 3.80 L 3.94 L Hgb 13.2 L 13.7 Hct 38.1 L 39.7 L MCV 100 H 101 H MCH 34.7 H 34.8 H MCHC 34.6 34.5 RDW 12.4 12.2 Plt Count 516 H 522 H MPV 9.1 9.2 Immature Gran % 1.8 Neutrophils % 62.3 Lymphocytes % 26.0 Monocytes % 9.5 Eosinophils % 0.0 Basophils % 0.4 Nucleated RBC % 0.0 Absolute Neutrophils 8.12 H Absolute Lymphocytes 3.39 Absolute Monocytes 1.24 H Absolute Eosinophils 0.00 Absolute Basophils 0.05 Sodium 139 Potassium 4.0 D Chloride 103 Carbon Dioxide 26.0 Anion Gap 10.0 BUN 11 Creatinine 0.9 Est GFR (CKD-EPI 2020) 111.42 Glucose 107 H Calcium 8.8 Magnesium 2.0 Total Bilirubin 0.3 Conjugated Bilirubin < 0.1 AST 30 ALT 52 Alkaline Phosphatase 98 C-Reactive Protein Total Protein 6.7 Albumin 3.3 L Folate 15.0 Procalcitonin Add-On Test Request 11/23/22 11/23/22 11/23/22 06:15 06:15 06:15 WBC RBC Hgb Hct MCV MCH MCHC RDW Plt Count MPV Immature Gran % Neutrophils % Lymphocytes % Monocytes % Eosinophils % Basophils % Nucleated RBC % Absolute Neutrophils Absolute Lymphocytes Absolute Monocytes Absolute Eosinophils Absolute Basophils Sodium Potassium Chloride Carbon Dioxide Anion Gap BUN Creatinine Est GFR (CKD-EPI 2020) Glucose Calcium Magnesium Total Bilirubin Conjugated Bilirubin AST ALT Alkaline Phosphatase C-Reactive Protein < 0.05 Total Protein Albumin Folate Procalcitonin < 0.1 Add-On Test Request DONE PAWSS Have you Been Recently Intoxicated or Drunk Within the Last 30 days?: Yes Have you Ever Experienced Previous Episodes of Alcohol Withdrawal?: Yes Have you ever Experienced Withdrawal Seizures?: Yes Have you ever Experienced Delirium Tremens(DT)s?: Yes Have you ever undergone Alcohol Rehabilitation Treatment (i.e, inpt ot outpatient treatment programs)?: Yes Have you ever Experienced Blackouts?: Yes Have you ever Combined Alcohol with other Downers within the last 90 days?: Yes Have you ever Combined Alcohol with any other Substance of Abuse during the last 90 days?: Yes Positive Blood Alcohol level on Presentation? [PCS.BAL]: No Evidence of Increased Autonomic Activity (i.e. HR>120, tremor, sweating, agitation, nausea)?: Yes Result: 9 Time Spent with Patient Time Spent with Patient: 25-34 minutes Time was spent: preparing to see the patient(eg.review tests), obtaining and/or reviewing separately otained hiistory, ordering medications,tests, procedures, referring, communicating with other health healthcare insurance sales agent, indepentently interpreting results, counseling the patient and care coordination
[2022-11-23] MEDS: DOXYCYCLINE 100 MG in Normal Saline 100 ML IVPB (20:59)
--- NOTE | 2022-11-23 23:43 | NUR.NOTE ---
Nursing Note: This principal technical writer discovered a butter knife slid under the sheet and lying flat against the mattress when the linen was changed
[2022-11-24] VITALS (24 sets, daily range): BP systolic 116–123; BP diastolic 74–82; PULSE 74–97; RESP 14–25; TEMP 37.5–38.8; O2SAT 96–100
[2022-11-24] MEDS: diazePAM 10 MG/2 ML SYR IVP (00:26)
[2022-11-24] MEDS: Sucralfate 1 GM TAB PO ×5 (00:27→23:59)
[2022-11-24] MEDS: Normal Saline Flush 10 ML SYR IVP ×3 (01:45→23:59)
[2022-11-24] MEDS: LORazepam 1 MG TAB PO/SL (04:15)
--- NOTE | 2022-11-24 06:27 | NUR.NOTE ---
Nursing Note: Lab unable to obtain am scheduled labs.
--- NOTE | 2022-11-24 06:38 | NUR.NOTE ---
Nursing Note: Lab returned to get am labs and patient refused. after I have my next pain medication, last ativan was received at 0400.
--- NOTE | 2022-11-24 06:51 | NUR.NOTE ---
Nursing Note: Ice Pack and additional pillow for placement beneath RUE secondary to pain from IV site. Requested permission to remove stale bread and food from tray table. Food had been there since 11/22/2022.
--- NOTE | 2022-11-24 08:00 | DI.US_ITS ---
Exam(s) US UPPER EXTREMITY VENOUS RT EXAM: US UPPER EXTREMITY VENOUS RT CLINICAL HISTORY: UE pain TECHNIQUE: GRAYSCALE, COLOR, DOPPLER IMAGING OF THE VENOUS SYSTEM OF THE UPPER EXTREMITY-BILATERAL COMPARISON: US US ABDOMEN LIMITED from 01/09/2021 FINDINGS: Basilic vein: There is a partially occlusive 9 cm length thrombus within the basilar vein in the uppe r arm. This does not extend into the axillary vein at this time. Brachial vein(s):Patent. Normal color flow. Normal compression and augmentation properties. Cephalic vein:Patent. Normal color flow. Normal compression and augmentation properties. Axillary vein: Patent. Normal color flow. Normal compression and augmentation properties. Visualized subclavian vein: Patent. No obvious intraluminal thrombus. IMPRESSION: 1. Positive study for the presence of 9 cm length partially occlusive intraluminal clot in the basil ar vein. 2. Other veins in the upper extremity are patent. DATA REPOSITORY:
[2022-11-24] MEDS: Pantoprazole 40 MG VIAL IVP ×2 (08:23→20:22)
[2022-11-24] MEDS: DOXYCYCLINE 100 MG in Normal Saline 100 ML IVPB ×2 (08:23→20:21)
[2022-11-24] MEDS: Methadone Liquid 10 MG/ML 30 MG PO (08:23)
[2022-11-24] MEDS: Folic Acid 1 MG TAB PO (08:24)
[2022-11-24] MEDS: Nicotine 7 MG/24 HR PATCH TD (08:24)
[2022-11-24] MEDS: LORazepam 1 MG TAB 2 MG PO ×3 (08:24→20:22)
[2022-11-24] MEDS: chlordiazePOXIDE 25 MG CAP 50 MG PO ×4 (08:24→20:22)
[2022-11-24] MEDS: Multivitamin TAB 1 TAB PO (08:24)
[2022-11-24] MEDS: Thiamine 100 MG TAB PO (08:24)
--- NOTE | 2022-11-24 09:14 | PDOC.CMPRO ---
Date of service: 11/24/22 Time of Service: 09:14 Care Management Progress Note Progress Note Text Progress Note Text: S/O: Jose was sitting up on the corner of his bed when CM met with him. He is awake, pleasant and engages in conversation Per pt, he is at a point where he has no family or friends and his sister recently . He was accustomed to staying with friends on occasion to shower and sleep however this is no longer an option because he is trying to get out of doing drugs. Jose was tearful throughout this conversation and expressed great interest in going to inpatient treatment or a half way house. Per pt, he went to [facility] and was clean for two years and would like to go back. He met with a assistant boys track coach at the beginning of this admission and wants to meet with one again today. Unfortunately, a screener came to meet with him within a half hour and he felt too tired to participate in the conversation. Following that interaction, CM met with Jose and he identified that he was given all the resources last week. Per pt, what happens after I discharge will depend on what I go back to in the community. CM placed a referral to [facility], since he doesn't currently have a cell phone. A: 37 year old admitted to [facility] on 11/21/22 for Acute Lyme Disease, Alcohol withdrawal P: Anticipate, Jose will discharge to the community when he is medically ready per provider and follow up with his PCP, [facility] and [facility]. [facility] met with patient during this admission and provided him with resources to inpatient treatment centers and sober living houses at his request. Jose is aware that he will need to outreach personally and may do so using the phone in his room. [facility] referral is placed, pt doesn't have a cell phone in the community.
--- NOTE | 2022-11-24 13:41 | W.PM.PROGNOT ---
Date of Service Date of service: 11/24/22 Time of Service: 13:41 Assessment and Plan Assessment and plan (1) Alcohol withdrawal: Status: Acute Assessment and plan: Continued Scheduled librium at current dose. Continue prn valium and prn lorazepam per CIWA. Replace MVI, thiamine. (2) Fever: Status: Acute Assessment and plan: likely d/t RUE thrombophlebitis. blood cultures from yesterday are pending. procalcitonin from yesterday was normal, i.e. <0.1 although he had elevated WBC of 13,000. Lab unable to draw his labs this morning and he has refused further attempts. (3) Duodenal ulcer disease: Status: Acute Assessment and plan: dx by EGD last admission. now on protonix and carafate w/ improvement in his sx (4) Opioid abuse: Status: Acute Assessment and plan: Continue methadone w/ plan for rehab or [facility] on discharge. (5) Chronic calcific pancreatitis: Status: Acute Assessment and plan: I do not think he is having an acute flare of this. Tolerating a regular diet - continue. (6) Hepatic dysfunction: Status: Acute Assessment and plan: LFTs nml today. Probably related to EtOH. Hepatitis work up on last admission. F/u as outpatient. No clear evidence of cirrhosis on imaging. (7) Unsheltered homelessness: Status: Acute Assessment and plan: Care management was made aware of his homelesseness. (8) Acute Lyme disease: Status: Acute Assessment and plan: Continue doxycycline, Converted to IV. Could be the cause of fever. (9) Nicotine dependence: Status: Acute Assessment and plan: Continue nicotine inhaler + patch. (10) DVT prophylaxis: Status: Acute Assessment and plan: The patient is ambulatory and I agree that he is at a low risk for DVT, also given his age. Does not require chemical or mechanical DVT ppx at this time. (11) Discharge planning issues: Status: Acute Assessment and plan: FUll code Keep in ICU as long as he requires parenteral valium for his acute alcohol withdrawal Homeless. Interested in substance abuse rehab on discharge. Subjective Subjective Interval history since last seen: Patient states that his stomach is better but complains of a lot of right arm pain from infiltrated IV and subsequent superficial phlebitis. Not using K pad as heating unit failed. Patient's US of his arm shows 9 cm basilar vein clot not extending to the axillary vein at this time. Exam Narrative Exam Narrative: Patient lying in bed, was groggy when I woke him up but is now alert. Right arm edematous and painful from right elbow up to the upper humerus, tender to palpation Objective Last Vital Signs Temp 37.6 C H 11/24/22 12:00 Pulse 74 11/24/22 12:00 Resp 16 11/24/22 12:00 BP 123/82 11/24/22 08:22 Pulse Ox 96 11/24/22 08:00 PAWSS Have you Been Recently Intoxicated or Drunk Within the Last 30 days?: Yes Have you Ever Experienced Previous Episodes of Alcohol Withdrawal?: Yes Have you ever Experienced Withdrawal Seizures?: Yes Have you ever Experienced Delirium Tremens(DT)s?: Yes Have you ever undergone Alcohol Rehabilitation Treatment (i.e, inpt ot outpatient treatment programs)?: Yes Have you ever Experienced Blackouts?: Yes Have you ever Combined Alcohol with other Downers within the last 90 days?: Yes Have you ever Combined Alcohol with any other Substance of Abuse during the last 90 days?: Yes Positive Blood Alcohol level on Presentation? [PCS.BAL]: No Evidence of Increased Autonomic Activity (i.e. HR>120, tremor, sweating, agitation, nausea)?: Yes Result: 9 Time Spent with Patient Time Spent with Patient: 25-34 minutes Time was spent: preparing to see the patient(eg.review tests), ordering medications,tests, procedures, referring, communicating with other health complex care nurse practitioner, indepentently interpreting results, counseling the patient and care coordination
[2022-11-24] MEDS: Acetaminophen 325 MG TAB PO (20:21)
[2022-11-24] MEDS: MORPHine 4 MG/ML SYR IVP (23:59)
[2022-11-25] VITALS (22 sets, daily range): BP systolic 97–123; BP diastolic 64–85; PULSE 69–94; RESP 10–23; TEMP 36.4–37.3; O2SAT 99–100
--- NOTE | 2022-11-25 | DI.US_ITS ---
Exam(s) US UPPER EXTREMITY VENOUS RT EXAM: US UPPER EXTREMITY VENOUS RT CLINICAL HISTORY: follow up basilic vein thrombosis; right arm pain. TECHNIQUE: Ultrasound examination of the right upper extremity venous system(s) is performed using g rayscale, color-flow, and spectral Doppler analysis. COMPARISON: US US UPPER EXTREMITY VENOUS RT from 11/24/2022 FINDINGS: The right internal jugular, axillary, subclavian, cephalic and brachial vein are patent without evide nce of thrombosis. The basilic vein appears patent on today's exam. There is wall thickening but th e vessel is compressible. The findings could be secondary to inflammation. The edema is again demon strated in the subcutaneous fat. No drainable fluid collection. IMPRESSION: No evidence of venous thrombosis. Thickening of the wall of the basilic vein without evidence visibl e thrombus. DATA REPOSITORY:
[2022-11-25] MEDS: Pantoprazole 40 MG VIAL IVP ×2 (09:20→21:02)
[2022-11-25] MEDS: LORazepam 1 MG TAB 2 MG PO ×3 (09:21→18:48)
[2022-11-25] MEDS: Multivitamin TAB 1 TAB PO (09:21)
[2022-11-25] MEDS: chlordiazePOXIDE 25 MG CAP 50 MG PO ×2 (09:21→11:59)
[2022-11-25] MEDS: Thiamine 100 MG TAB PO (09:22)
[2022-11-25] MEDS: Folic Acid 1 MG TAB PO (09:22)
[2022-11-25] MEDS: Nicotine 7 MG/24 HR PATCH TD (09:23)
[2022-11-25] MEDS: Normal Saline Flush 10 ML SYR IVP ×2 (09:26→21:02)
[2022-11-25] MEDS: Sucralfate 1 GM TAB PO ×3 (09:28→18:33)
[2022-11-25] MEDS: Methadone Liquid 10 MG/ML 30 MG PO (09:28)
[2022-11-25] MEDS: DOXYCYCLINE 100 MG in Normal Saline 100 ML IVPB ×2 (09:28→21:02)
[2022-11-25] MEDS: LORazepam 2 MG/ML VIAL IVP (09:58)
[2022-11-25] MEDS: Acetaminophen 325 MG TAB PO ×2 (09:58→18:47)
--- NOTE | 2022-11-25 10:01 | CMPROGNOTE_ITS ---
Date of service: 11/25/22 Time of Service: 10:01 Care Management Progress Note Progress Note Text Progress Note Text: S/O: Jose was sitting up in bed when CM met with him. He is awake, pleasant and engages in conversation. Pt reiterates that he does not have any community support. Yesterday, he expressed great interest in going to inpatient treatment or a half way house and still has the purple folder on his bed with all the resources and contact information provided by [facility]. Jose shares with CM that there's at least a 2 week wait at the [facility] or [facility], so he's hasn't made any calls and does not want to be put on waiting lists. He is planning to discharge to the community and follow up with [facility] and [facility] and Dr. Deluna. CM asked patient if he would like to talk with the Mason Foreman/Superintendant again today? He declines, stating that he has the resources and knows how to make the calls. Unfortunately, [facility] is not able to provide patient with another cell phone, because he was just given one a short time ago. They suggest that he use the public phone at the [facility] and call 211 for emergency housing on discharge. CM will continue to follow. A: 37 year old admitted to [facility] on 11/21/22 for Acute Lyme Disease, Alcohol withdrawal P: Anticipate, Jose will discharge to the community when he is medically ready per provider and follow up with his PCP, [facility], [facility] and [facility] (last dose letter will be provided.) [facility] met with patient during this admission and provided him with resources to inpatient treatment centers and sober living houses at his request.? Jose is aware that he will need to outreach personally and may do so using the phone in his room. [facility] suggests that he use the public phone at the [facility] and call 211 for emergency housing on discharge.
[2022-11-25] MEDS: HYDROmorphone 2 MG/ML SYR IVP (10:20)
--- NOTE | 2022-11-25 12:12 | PGE_ITS ---
Date of Service Date of service: 11/25/22 Time of Service: 12:12 Assessment and Plan Assessment and plan (1) Alcohol withdrawal: Status: Acute Assessment and plan: Continued Scheduled librium at 50 mg qid but begin to taper to 25 mg qid tomorrow. I have increased his scheduled ativan to 2 mg qid along w/ adding an oral prn dose. I have stopped his iv valium and iv ativan. I think that we can stop scoring his CIWA as his numbers are not correlating w/ his clinical exams. Professional time spent interviewing and examining patient, discussion of goals of care with hospital team (care management, nursing and consulting professionals) was 45 minutes. (2) Fever: Status: Acute Assessment and plan: I am concerned that he now has a cellulitis of his right forearm in addition to basilic thrombophlebitis. I have ordered repeat blood cultures and added ESR, CRP and procalcitonin levels but have opted to cover w/ Vancomycin and Ancef for coverage of Staph aurues and Strep (although he was already on doxycycline for his Lyme's disease). (3) Cellulitis of arm, right: Status: Acute Assessment and plan: repeat blood cultures, expand coverage for Staph and Strep w/ Ancef and Vancomycin (4) Duodenal ulcer disease: Status: Acute Assessment and plan: dx by EGD last admission. now on protonix and carafate w/ improvement in his sx (5) Opioid abuse: Status: Acute Assessment and plan: Continue methadone w/ plan for rehab or [facility] on discharge. (6) Chronic calcific pancreatitis: Status: Acute Assessment and plan: I do not think he is having an acute flare of this. Tolerating a regular diet - continue. (7) Hepatic dysfunction: Status: Acute Assessment and plan: LFTs nml today. Probably related to EtOH. Hepatitis work up on last admission. F/u as outpatient. No clear evidence of cirrhosis on imaging. (8) Unsheltered homelessness: Status: Acute Assessment and plan: Care management was made aware of his homelesseness. (9) Acute Lyme disease: Status: Acute Assessment and plan: Continue doxycycline, Converted to IV. I do not feel that his fever was from Lyme's but from cellulitis and th rombophlebitis from an IV that was in his right arm. (10) Nicotine dependence: Status: Acute Assessment and plan: Continue nicotine inhaler + patch. (11) DVT prophylaxis: Status: Acute Assessment and plan: The patient is ambulatory and I agree that he is at a low risk for DVT, also given his age. Does not require chemical or mechanical DVT ppx at this time. (12) Discharge planning issues: Status: Acute Assessment and plan: FUll code No longer needs ICU care, as he will now be on oral benzodiazepines only Homeless. Interested in substance abuse rehab on discharge. Subjective Subjective Interval history since last seen: Patient w/ fever overnight up to 38.8 last night (apparently also had fever of 38.5 the night before). He has increased pain and swelling and now redness over right lower humerus, upper forearm at prior site of iv which had become infiltrated. he had a leukocytosis yesterday but labs are pending from today. US of his arm yesterday demonstrated thrombophlebitis of his right basilic vein but no involvement of his cephalic or axillary or brachial veins. I have ordered repeat US to see if there is propagation and also I have ordered blood cultures along w/ ESR, CRP and procalcitonin and will start him on Ancef and Vancomycin for coverage of Staph and Strep. His right arm is looking more reddened and in light of his fever, I think he has cellulitis of his right arm. As for his acute alcohol withdrawal, there is a discrepancy in what the nurses are observing in his behaviors and his CIWA scores. He has voiced anxiety and feeling of crawling out of his skin but he has not had jose hallucinations and he is not tachycardic or diaphoretic. he is still on scheduled librium 50 mg qid along w/ ativan 2 mg tid Exam Narrative Exam Narrative: Jose has erythema and edema over his right distal humerus, antecubital area and edema extends down to his right wrist. He has tenderness over the right medial distal humerus and increased warmth; intact pulses at the wrist he is not tremulous and not diaphoretic, he is alert and oriented w/ coherent speech, not hallucinating Objective Last Vital Signs Temp 37.3 C 11/25/22 11:55 Pulse 78 11/25/22 11:53 Resp 19 11/25/22 11:53 BP 123/85 11/25/22 11:53 Pulse Ox 100 11/25/22 04:00 PAWSS Have you Been Recently Intoxicated or Drunk Within the Last 30 days?: Yes Have you Ever Experienced Previous Episodes of Alcohol Withdrawal?: Yes Have you ever Experienced Withdrawal Seizures?: Yes Have you ever Experienced Delirium Tremens(DT)s?: Yes Have you ever undergone Alcohol Rehabilitation Treatment (i.e, inpt ot outpatient treatment programs)?: Yes Have you ever Experienced Blackouts?: Yes Have you ever Combined Alcohol with other Downers within the last 90 days?: Yes Have you ever Combined Alcohol with any other Substance of Abuse during the last 90 days?: Yes Positive Blood Alcohol level on Presentation? [PCS.BAL]: No Evidence of Increased Autonomic Activity (i.e. HR>120, tremor, sweating, agitation, nausea)?: Yes Result: 9 Time Spent with Patient Time Spent with Patient: 35-49 minutes Time was spent: preparing to see the patient(eg.review tests), ordering medications,tests, procedures, indepentently interpreting results, counseling the patient and care coordination
[2022-11-25] MEDS: Ketorolac 30 MG/ML VIAL IVP (14:17)
[2022-11-25] MEDS: ceFAZolin 2 GM/50 ML BAG IVPB ×2 (14:17→22:37)
[2022-11-25] MEDS: VANCOMYCIN/WATER (PEG) 1 GM/200 ML BAG IVPB (15:51)
--- NOTE | 2022-11-25 15:55 | NUR.NOTE ---
Nursing Note: At approximately 1400, patient was looking all over his room looking for his nicotine inhaler, and was unable to find it. Patient became very upset, with techypnea and crying. This nurse explained to patient if the nicotine inhaler had been removed from the room it was not intentional and that I could get him another one and that was not a problem. This nurse replaced the inhaler and patient calmed down.
--- NOTE | 2022-11-25 16:05 | PHA.REVIEW2 ---
Pharmacy Admission Review - Admission Clinical Review (Last Updated 11/21/22 @ 07:50 by Nik Paul) Cellulitis of arm, right (Acute) Fever (Acute) Acute Lyme disease (Acute) Duodenal ulcer disease (Acute) Alcohol withdrawal (Acute) Chronic calcific pancreatitis (Acute) Hepatic dysfunction (Acute) Opioid abuse (Acute) DVT prophylaxis (Acute) Discharge planning issues (Acute) Nicotine dependence (Acute) Unsheltered homelessness (Acute) No Known Allergies Allergy (Verified 11/12/22 15:21) Resuscitation Status Full Code Height 5 ft 6 in Weight 45 kg - Comments Comments/Follow Ups: Alcohol withdrawl, CIWA scores not correlating with symptoms, currently on Librium taper and scheduled Lorazepam. Chronic opiod use disorder-on Methadone 30mg daily with plans to follow up with [facility] upon discharge, duodenal ulcer-improved with treatment, Cellulitis pain of right forearm with fever-added broad spectrum Antibiotics, Lyme treating with IV Doxy, as the oral was possibly contributing to his ulcer, repeat blood cultures pending, repeat Procal pending, repeat C-reative protein pending. Ultrasound today to rule out venous thrombosis of forearm-results are negative - Renal Dosing Renal Dosing: BUN 11 mg/dL (7-18) 11/23/22 06:15 Creatinine 0.9 mg/dL (0.70-1.30) 11/23/22 06:15 CrCl~70ml/min Medications needing adjustments: Reviewed - Anticoagulation Anticoagulation: Hgb 13.7 g/dL (13.5-17.5) 11/23/22 06:15 Hct 39.7 % (40.0-50.0) L 11/23/22 06:15 Plt Count 522 10^3/uL (130-400) H 11/23/22 06:15 Creatinine 0.9 mg/dL (0.70-1.30) 11/23/22 06:15 DVT Prophylaxis: N/A (No chemical DVT prophylaxis needed, given his age, ambulating) - Opiate Usage Evaluate Pain Scale/Pains Meds: Reviewed (Avoid if possible, on Ketorolac for pain) Scheduled Bowel Reg ordered if on Opiates?: No (+BM's) - Relevant Labs Sodium 139 mmol/L (136-145) 11/23/22 06:15 Potassium 4.0 mmol/L (3.5-5.1) D 11/23/22 06:15 Chloride 103 mmol/L (98-107) 11/23/22 06:15 Magnesium 2.0 mg/dL (1.8-2.4) 11/23/22 06:15 C-Reactive Protein < 0.05 mg/dL (0.0-0.3) 11/23/22 06:15 Electrolytes, C-Reactive P, ESR: Reviewed (Trending CRP, ESR for cellulitis) - DM Control DM Control: Glucose 107 mg/dL (74-106) H 11/23/22 06:15 DM Control: N/A - Cardiac Review BP, HR, EF%: N/A - Qtc Review QTc: N/A - IV to PO Switch IV Medications: Reviewed (Doxy, Pantoprazole, other Anbx, Ketorolac) - Home Meds Home Med List reviewed: Reviewed (Gabapentin, Suboxone-on Methadone) - Comments Comments/Follow Ups: MD is aware of concern with duodenal ulcer and low dose Ketorolac, confirmed it is okay to administer for increased pain Antibiotic Activity - Pharmacy Antibiotic Review Pharmacy Antibiotic Activity: C/S review (BC pending) - Antibiotic Information Antibiotic Review Info: Doxy IV for Lyme treatment, increased broad spectrum coverage (Vanco and Cefazolin) for potential MRSA/Strep forearm cellulitis s/p fever & increased pain
[2022-11-25] MEDS: Ketorolac 15 MG/ML VIAL IVP (21:02)
[2022-11-26] VITALS (20 sets, daily range): BP systolic 99–120; BP diastolic 61–85; PULSE 67–99; RESP 7–19; TEMP 36.3–37.1; O2SAT 96–99
[2022-11-26] MEDS: Ketorolac 15 MG/ML VIAL IVP ×4 (02:46→20:22)
[2022-11-26] MEDS: VANCOMYCIN/WATER (PEG) 1 GM/200 ML BAG IVPB ×2 (04:15→16:19)
[2022-11-26] MEDS: ceFAZolin 2 GM/50 ML BAG IVPB ×3 (05:33→22:09)
[2022-11-26] MEDS: Sucralfate 1 GM TAB PO ×4 (05:33→22:10)
[2022-11-26 06:28] LABS: Abs Immature Grans 0.44 10^3/uL (0.0-0.06); Absolute Monocyte Count 1.16 10^3/uL (0.1-0.8); Absolute Neutrophil Count 7.65 10^3/uL (1.2-6.7); Basophils % 0.5; HGB 12.9 g/dL (13.5-17.5); Immature Grans % 3.4; Lymphocytes % 28.3; MCH 34.2 pg (27.0-33.0); MCHC 33.9 % (32.0-36.0); MCV 101 fL (80-95); MPV 9.3 fL (8.0-11.0); Monocytes % 8.9; Neutrophils % 58.9; Platelet Count 366 10^3/uL (130-400); RBC 3.77 10^6/uL (4.36-5.78); RDW 12.1 % (11.8-14.1); RDW-SD 45.2 fL; WBC 12.99 10^3/uL (4.4-10.8)
[2022-11-26 06:30] LABS: Absolute Basophil Count 0.06 10^3/uL (0.0-0.2); Absolute Lymphocyte Count 3.68 10^3/uL (1.2-3.4)
[2022-11-26 06:38] LABS: Anion Gap 9.9 mmol/L (3-11); BUN 18 mg/dL (7-18); CO2 25.1 mmol/L (21.0-32.0); CREATININE 1.1 mg/dL (0.70-1.30); Chloride 102 mmol/L (98-107); Estimated GFR 87.57 (mL/min/1.73m2); Glucose 161 mg/dL (74-106); Potassium 4.3 mmol/L (3.5-5.1); Sodium 137 mmol/L (136-145)
[2022-11-26] MEDS: Normal Saline Flush 10 ML SYR IVP ×3 (08:40→22:59)
[2022-11-26] MEDS: Methadone Liquid 10 MG/ML 30 MG PO (08:40)
[2022-11-26] MEDS: Pantoprazole 40 MG VIAL IVP ×2 (08:41→20:22)
[2022-11-26] MEDS: Nicotine 7 MG/24 HR PATCH TD (08:41)
[2022-11-26] MEDS: Folic Acid 1 MG TAB PO (08:44)
[2022-11-26] MEDS: Multivitamin TAB 1 TAB PO (08:44)
[2022-11-26] MEDS: chlordiazePOXIDE 25 MG CAP PO ×4 (08:44→20:22)
[2022-11-26] MEDS: LORazepam 1 MG TAB 2 MG PO ×4 (08:44→20:23)
[2022-11-26] MEDS: Thiamine 100 MG TAB PO (08:45)
--- NOTE | 2022-11-26 10:00 | PDOC.CMPRO ---
Date of service: 11/26/22 Time of Service: 10:01 Care Management Progress Note Progress Note Text Progress Note Text: S/O: Ayaan was lying in bed when CM met with him. He is awake and engages in conversation. He is tearful throughout the conversation, sharing his worries about being bed ridden for the rest of his life. CM provided reassurance. CM brought Jose a laptop so he could finish signing himself up for a free phone through [employer], as recommended by KRISHNA. He is not interested in completing the online application at this time. He would rather wait to see if his girlfriend visits him today and brings an old phone. Jose is not medically cleared for discharge due to suspected cellulites in his arm. CM will follow. A: 37 year old admitted to [facility] on 11/21/22 for Acute Lyme Disease, Alcohol withdrawal P: Anticipate, Jose will discharge to the community when he is medically ready per provider and follow up with his PCP, KRISHNA, [facility] and [facility] (last dose letter will be provided.) [facility] E[facility] met with patient during this admission and provided him with resources to inpatient treatment centers and sober living houses at his request.? Jose is aware that he will need to outreach personally and may do so using the phone in his room. KRISHNA suggests that he use the public phone at [facility] and call 211 for emergency housing on discharge.?
[2022-11-26] MEDS: Normal Saline 500 ML IV (10:20)
--- NOTE | 2022-11-26 10:46 | NUR.NOTE ---
Addendum entered by Alysia Lopez 11/26/22 16:10: Deloris Lozano from enviromental services also saw patient fall in his room at approximately 1000. Original Note: Nursing Note: At approximately 1000, Jhonathan RAJPUT told this nurse she saw patient fall on the floor two times. child monitor had been intentionally removed by patient prior to fall. This nurse and Jhonathan RAJPUT went into the room to assess patient and get him back into the bed. Patient denied injury, denied hitting his head. Vital signs were done--VS stable. Bed linens were changed as they were soiled. Patient was assisted with voiding in the urinal for safety, then assisted back to bed. Patient was told to call us when needing to void or use the bathroom for his safety. Bisi Egan RN saw patient intentionally fall on the floor protecting his head and upper body--This was seen on the ICU safety patient room video monitors. See note from Bisi gEan RN.
--- NOTE | 2022-11-26 11:16 | NUR.NOTE ---
At approx 1000, backend java developer stated that this pt fell in 222. I was only able to see him get up from falling, as he was in a spot that had no video surveillance. He the looked like he was staggering to the chair acroww the room, and fell into the chair. At no time did he hit his head after getting up from the floor and elva to the chair. RN was then in in the room.Note:
[2022-11-26 13:02] LABS: ESR 51 mm/hr (0-15)
[2022-11-26 13:28] LABS: C-Reactive Protein 3.96 mg/dL (0.0-0.3)
[2022-11-26] MEDS: DOXYCYCLINE 100 MG in Normal Saline 100 ML IVPB ×2 (13:43→20:22)
[2022-11-26] MEDS: Acetaminophen 325 MG TAB PO (15:54)
--- NOTE | 2022-11-26 17:08 | PGE_ITS ---
Date of Service Date of service: 11/26/22 Time of Service: 17:08 Assessment and Plan Assessment and plan (1) Alcohol withdrawal: Status: Acute Assessment and plan: continue to taper libirum and ativan. no longer needs iv ativan. (2) Cellulitis of arm, right: Status: Acute Assessment and plan: patient refused his blood work yesterday therefore blood cultures were not drawn until today and were not collected on am rounds but had to be reordered. He remains on ancef and vancomcyin but his celllulitis is improving. (3) Duodenal ulcer disease: Status: Acute Assessment and plan: dx by EGD last admission. now on protonix and carafate w/ improvement in his sx (4) Opioid abuse: Status: Acute Assessment and plan: Continue methadone w/ plan for rehab or [facility] on discharge. (5) Chronic calcific pancreatitis: Status: Acute Assessment and plan: I do not think he is having an acute flare of this. Tolerating a regular diet - continue. (6) Hepatic dysfunction: Status: Acute Assessment and plan: LFTs nml today. Probably related to EtOH. Hepatitis work up on last admission. F/u as outpatient. No clear evidence of cirrhosis on imaging. (7) Unsheltered homelessness: Status: Acute Assessment and plan: Care management was made aware of his homelesseness. (8) Acute Lyme disease: Status: Acute Assessment and plan: Continue doxycycline, Converted to IV. I do not feel that his fever was from Lyme's but from cellulitis and thrombophlebitis from an IV that was in his right arm. (9) Nicotine dependence: Status: Acute Assessment and plan: Continue nicotine inhaler + patch. (10) DVT prophylaxis: Status: Acute Assessment and plan: The patient is ambulatory and I agree that he is at a low risk for DVT, also given his age. Does not require chemical or mechanical DVT ppx at this time. (11) Discharge planning issues: Status: Acute Assessment and plan: FUll code No longer needs ICU care, as he will now be on oral benzodiazepines only Homeless. Interested in substance abuse rehab on discharge. Subjective Subjective Interval history since last seen: This morning Jose fell to the floor in a controlled manner witnessed by nursing. He did not sustain any injuries. He states that he was not fully awake, yet he was seen walking around the room and standing by the door when he put himself to the ground. Patient has had a lot of social drama today w/ visits from both his current and his former girlfriends. Patient states that his right hand and arm are better since being given the Toradol for his thrombophlebitis and since going on Ancef for cellulitis of his forearm. He had an infiltrated IV. Yesterday he could not use his right arm to feed himself and today he was seen eating dinner w/ his right hand. He complains of not getting his ativan as frequently. He has scheduled doses of librium and scheduled doses of ativan. Nursing is choosing to not give the prn ativan as often as he is clinically not showing withdrawal anymore. I have explained to him that the goal is to wean him down and off the ativan and librium. Exam Narrative Exam Narrative: Patient was very calm and talking with his female friend, eating his dinner w/ no tremors or diaphoresis. He is not tachycardic and he is not hallucinating When I walked into the room he then expressed concerns of increased anxiety and fear of withdrawal. Right arm still somewhat swollen but improving and the area of erythema over the medial forarm at the antecubital area is decreasing and he is able to flex and extend the arm and able to open and close his hand to manipulate his food and spoon. Objective Last Vital Signs Temp 36.8 C 11/26/22 08:33 Pulse 85 11/26/22 12:11 Resp 14 11/26/22 12:11 BP 112/61 11/26/22 12:11 Pulse Ox 98 11/26/22 09:59 Laboratory Results - last 24 hr 11/24/22 11/24/22 11/25/22 05:35 05:35 12:31 WBC Cancelled RBC Cancelled Hgb Cancelled Hct Cancelled MCV Cancelled MCH Cancelled MCHC Cancelled RDW Cancelled Plt Count Cancelled MPV Cancelled Immature Gran % Cancelled Neutrophils % Cancelled Band Neutrophils % Cancelled Lymphocytes % Cancelled Atypical Lymphs % Cancelled Monocytes % Cancelled Eosinophils % Cancelled Basophils % Cancelled Metamyelocytes % Cancelled Myelocytes % Cancelled Promyelocytes % Cancelled Other Cells % Cancelled Nucleated RBC % Cancelled Absolute Neutrophils Cancelled Absolute Lymphocytes Cancelled Absolute Monocytes Cancelled Absolute Eosinophils Cancelled Absolute Basophils Cancelled RBC Morphology Cancelled Polychromasia Cancelled Hypochromasia Cancelled Poikilocytosis Cancelled Basophilic Stippling Cancelled Anisocytosis Cancelled Microcytosis Cancelled Macrocytosis Cancelled Spherocytes Cancelled Tear Drop Cells Cancelled Ovalocytes Cancelled Stomatocytes Cancelled [place] Bodies Cancelled Patricia Cells/Echinocytes Cancelled Acanthocytes (Spur) Cancelled Schistocytes Cancelled ESR Sodium Cancelled Potassium Cancelled Chloride Cancelled Carbon Dioxide Cancelled Anion Gap Cancelled BUN Cancelled Creatinine Cancelled Est GFR (CKD-EPI 2020) Cancelled Glucose Cancelled Calcium Cancelled Magnesium Cancelled C-Reactive Protein Cancelled Procalcitonin 11/25/22 11/25/22 11/25/22 12:31 12:32 14:52 WBC Cancelled RBC Cancelled Hgb Cancelled Hct Cancelled MCV Cancelled MCH Cancelled MCHC Cancelled RDW Cancelled Plt Count Cancelled MPV Cancelled Immature Gran % Cancelled Neutrophils % Cancelled Band Neutrophils % Cancelled Lymphocytes % Cancelled Atypical Lymphs % Cancelled Monocytes % Cancelled Eosinophils % Cancelled Basophils % Cancelled Metamyelocytes % Cancelled Myelocytes % Cancelled Promyelocytes % Cancelled Other Cells % Cancelled Nucleated RBC % Cancelled Absolute Neutrophils Cancelled Absolute Lymphocytes Cancelled Absolute Monocytes Cancelled Absolute Eosinophils Cancelled Absolute Basophils Cancelled RBC Morphology Cancelled Polychromasia Cancelled Hypochromasia Cancelled Poikilocytosis Cancelled Basophilic Stippling Cancelled Anisocytosis Cancelled Microcytosis Cancelled Macrocytosis Cancelled Spherocytes Cancelled Tear Drop Cells Cancelled Ovalocytes Cancelled Stomatocytes Cancelled [place] Bodies Cancelled [place] Cells/Echinocytes Cancelled Acanthocytes (Spur) Cancelled Schistocytes Cancelled ESR Cancelled Sodium Potassium Chloride Carbon Dioxide Anion Gap BUN Creatinine Est GFR (CKD-EPI 2020) Glucose Calcium Magnesium C-Reactive Protein Procalcitonin Cancelled 11/26/22 11/26/22 11/26/22 06:10 06:10 12:45 WBC 12.99 H RBC 3.77 L Hgb 12.9 L Hct 38.0 L MCV 101 H MCH 34.2 H MCHC 33.9 RDW 12.1 Plt Count 366 MPV 9.3 Immature Gran % 3.4 Neutrophils % 58.9 Band Neutrophils % Lymphocytes % 28.3 Atypical Lymphs % Monocytes % 8.9 Eosinophils % 0.0 Basophils % 0.5 Metamyelocytes % Myelocytes % Promyelocytes % Other Cells % Nucleated RBC % 0.0 Absolute Neutrophils 7.65 H Absolute Lymphocytes 3.68 H Absolute Monocytes 1.16 H Absolute Eosinophils 0.00 Absolute Basophils 0.06 RBC Morphology Polychromasia Hypochromasia Poikilocytosis Basophilic Stippling Anisocytosis Microcytosis Macrocytosis Spherocytes Tear Drop Cells Ovalocytes Stomatocytes [place] Bodies Patricia Cells/Echinocytes Acanthocytes (Spur) Schistocytes ESR Sodium 137 Potassium 4.3 Chloride 102 Carbon Dioxide 25.1 Anion Gap 9.9 BUN 18 Creatinine 1.1 Est GFR (CKD-EPI 2020) 87.57 Glucose 161 H Calcium 9.0 Magnesium C-Reactive Protein 3.96 H Procalcitonin 11/26/22 12:45 WBC RBC Hgb Hct MCV MCH MCHC RDW Plt Count MPV Immature Gran % Neutrophils % Band Neutrophils % Lymphocytes % Atypical Lymphs % Monocytes % Eosinophils % Basophils % Metamyelocytes % Myelocytes % Promyelocytes % Other Cells % Nucleated RBC % Absolute Neutrophils Absolute Lymphocytes Absolute Monocytes Absolute Eosinophils Absolute Basophils RBC Morphology Polychromasia Hypochromasia Poikilocytosis Basophilic Stippling Anisocytosis Microcytosis Macrocytosis Spherocytes Tear Drop Cells Ovalocytes Stomatocytes [place] Bodies Patricia Cells/Echinocytes Acanthocytes (Spur) Schistocytes ESR 51 H Sodium Potassium Chloride Carbon Dioxide Anion Gap BUN Creatinine Est GFR (CKD-EPI 2020) Glucose Calcium Magnesium C-Reactive Protein Procalcitonin PAWSS Have you Been Recently Intoxicated or Drunk Within the Last 30 days?: Yes Have you Ever Experienced Previous Episodes of Alcohol Withdrawal?: Yes Have you ever Experienced Withdrawal Seizures?: Yes Have you ever Experienced Delirium Tremens(DT)s?: Yes Have you ever undergone Alcohol Rehabilitation Treatment (i.e, inpt ot outpatient treatment programs)?: Yes Have you ever Experienced Blackouts?: Yes Have you ever Combined Alcohol with other Downers within the last 90 days?: Yes Have you ever Combined Alcohol with any other Substance of Abuse during the last 90 days?: Yes Positive Blood Alcohol level on Presentation? [PCS.BAL]: No Evidence of Increased Autonomic Activity (i.e. HR>120, tremor, sweating, agitation, nausea)?: Yes Result: 9 Time Spent with Patient Time Spent with Patient: 25-34 minutes Time was spent: preparing to see the patient(eg.review tests), ordering medications,tests, procedures, referring, communicating with other health coronary care unit nurse, indepentently interpreting results, counseling the patient and care coordination
[2022-11-27 00:06] VITALS: PULSE 76
[2022-11-27 00:11] VITALS: BP 121/79; PULSE 69; RESP 18; TEMP 35.9; O2SAT 98
[2022-11-27] MEDS: LORazepam 1 MG TAB 2 MG PO ×4 (01:04→15:49)
[2022-11-27] MEDS: Ketorolac 15 MG/ML VIAL IVP ×3 (01:29→13:18)
[2022-11-27] MEDS: Normal Saline Flush 10 ML SYR IVP (02:48)
[2022-11-27] MEDS: VANCOMYCIN/WATER (PEG) 1 GM/200 ML BAG IVPB (03:37)
[2022-11-27] MEDS: Acetaminophen 325 MG TAB PO ×3 (05:31→08:34)
[2022-11-27] MEDS: ceFAZolin 2 GM/50 ML BAG IVPB (05:38)
[2022-11-27] MEDS: DOXYCYCLINE 100 MG in Normal Saline 100 ML IVPB (07:18)
[2022-11-27 08:00] VITALS: BP 100/66; PULSE 62; PULSE 82; RESP 18; TEMP 36.6; O2SAT 98
[2022-11-27] MEDS: Pantoprazole 40 MG VIAL IVP (08:22)
[2022-11-27] MEDS: Multivitamin TAB 1 TAB PO (08:23)
[2022-11-27] MEDS: chlordiazePOXIDE 25 MG CAP PO ×3 (08:23→15:49)
[2022-11-27] MEDS: Folic Acid 1 MG TAB PO (08:23)
[2022-11-27] MEDS: Methadone Liquid 10 MG/ML 30 MG PO (08:23)
[2022-11-27] MEDS: Sucralfate 1 GM TAB PO ×3 (08:23→15:49)
[2022-11-27] MEDS: Thiamine 100 MG TAB PO (08:23)
[2022-11-27] MEDS: Nicotine 7 MG/24 HR PATCH TD (08:24)
--- NOTE | 2022-11-27 08:43 | PDOC.CMPRO ---
Date of service: 11/27/22 Time of Service: 08:43 Care Management Progress Note Progress Note Text Progress Note Text: S/O:? Jose is not medically ready for discharge, he is being treated with IV ABX for cellulites and thrombophlebitis from an IV that was in his right arm. A chest CTA is ordered and will require a midline due to complications obtaining IV access. During the hospitalists assessment which was witnessed by this automobile and property underwriter, an unopened 5ml syringe with needle and a 10ml syringe without a needle (which has a foggy appearance) is found tied to patients left calf. Items are removed from patient room, RN supervisor dehydrogenation is notified. Jose is considering leaving AMA, but would like the CTA first. Contraband policy is reviewed with pt, he is agreeable to expectations and his visitor is asked to leave. CM will continue to follow. A: 37 year old admitted to [facility] on 11/21/22 for Acute Lyme Disease, Alcohol withdrawal P: Anticipate, Jose will discharge to the community when he is medically ready per provider and follow up with his PCP, KRISHNA, [facility] and [facility] (last dose letter will be provided.) [facility] E[facility] met with patient during this admission and provided him with resources to inpatient treatment centers and sober living houses at his request.? Jose is aware that he will need to outreach personally and may do so using the phone in his room. Jose does not want to be put on a waiting list, and does not want to contact facilities. Jose may call 211 for emergency housing on discharge if needed, but plans on meeting up with a female friend tj escobar.
[2022-11-27 09:24] LABS: Abs Immature Grans 0.25 10^3/uL (0.0-0.06); Absolute Basophil Count 0.04 10^3/uL (0.0-0.2); Absolute Eosinophil Count 0.56 10^3/uL (0.0-0.7); Absolute Lymphocyte Count 3.16 10^3/uL (1.2-3.4); Absolute Monocyte Count 1.01 10^3/uL (0.1-0.8); Absolute Neutrophil Count 8.22 10^3/uL (1.2-6.7); Basophils % 0.3; Eosinophils % 4.2; HCT 37.5 % (40.0-50.0); HGB 12.7 g/dL (13.5-17.5); Immature Grans % 1.9; Lymphocytes % 23.9; MCH 34.2 pg (27.0-33.0); MCHC 33.9 % (32.0-36.0); MCV 101 fL (80-95); MPV 9.5 fL (8.0-11.0); Monocytes % 7.6; Neutrophils % 62.1; Platelet Count 365 10^3/uL (130-400); RBC 3.71 10^6/uL (4.36-5.78); RDW 12.1 % (11.8-14.1); RDW-SD 45.4 fL; WBC 13.24 10^3/uL (4.4-10.8)
[2022-11-27 09:39] LABS: Anion Gap 6.9 mmol/L (3-11); BUN 14 mg/dL (7-18); C-Reactive Protein 1.92 mg/dL (0.0-0.3); CO2 25.1 mmol/L (21.0-32.0); CREATININE 1.1 mg/dL (0.70-1.30); Chloride 104 mmol/L (98-107); Estimated GFR 87.57 (mL/min/1.73m2); Glucose 164 mg/dL (74-106); Magnesium 2.1 mg/dL (1.8-2.4); Potassium 4.2 mmol/L (3.5-5.1); Sodium 136 mmol/L (136-145)
[2022-11-27 09:52] VITALS: PULSE 86
[2022-11-27 10:16] LABS: Procalcitonin < 0.1 ng/mL
[2022-11-27 11:50] VITALS: BP 113/57; PULSE 73; RESP 18; TEMP 36.8; O2SAT 99
[2022-11-27] MEDS: Amoxicillin 875/Clav. 125 TAB PO (15:49)
[2022-11-27 15:54] VITALS: PULSE 78
--- NOTE | 2022-11-27 15:56 | NUR.NOTE ---
caretaker notified, despite proper education patient has requested to leave AMA. Paper work was signed & belongings were all given to the patient. PIV access was removed from the patient. Patient states he cant get any pain medication here so he knows how to get it on the streets. Nursing Note:
--- NOTE | 2022-11-27 16:11 | W.PM.DS.N ---
Date of service: 11/27/22 Time of Service: 16:11 DS: Diagnosis Discharge Diagnosis (1) Alcohol withdrawal: Status: Acute (2) Cellulitis of arm, right: Status: Acute (3) Acute thrombosis of right basilic vein: Status: Acute (4) Acute Lyme disease: Status: Acute (5) Duodenal ulcer disease: Status: Acute (6) Opioid abuse: Status: Acute (7) Chronic calcific pancreatitis: Status: Acute (8) Hepatic dysfunction: Status: Acute (9) Nicotine dependence: Status: Acute (10) Unsheltered homelessness: Status: Acute Discharge Plan Disposition Patient Disposition: Against Medical Advice Condition: Fair Discharge Details Reason For Visit: Alcohol Withdrawal Admit Date/Time: 11/21/22 05:50 Admit Provider: Nik Paul Attending Provider: Nik Paul [facility] Hospital Course: Mr Burns is a 37 year old male with PMHx of Alcohol abuse w/ h/o EtOH w/d and opioid abuse, as well as tobacco abuse and h/o recently diagnosed duodenal ulcer and h/o chronic pancreatitis who was admitted to [facility] ICU presenting with acute on chronic abdominal pain, evidence of EtOH withdrawal and agitation. His abdominal pain was thought to be due to his undertreated duodenal ulcer for which he was not taking his prescribed therapy. He was resumed on protonix and carafate. His alcohol withdrawal was treated with scheduled librium, scheduled + prn ativan per CIWA scale in addition to valium prn, and he was initiated on methadone 30 mg PO daily with plans for follow up with [facility]. The patient did have periods of agitation and delrium/hallucinations in the ICU and did talk quite a bit about grieving the of his sister. For this mental health was consulted to provide support. The patient's symptoms of alcohol withdrawal improved to the point of being able to be transferred out of the ICU on 11/26/22 at which point his benzodiazepnies were de-escalated. Additionally, on this admission, the patient did report RUE pain and redness. His venous doppler of RUE showed a 9 cm non-occlusive thrombus of the basilic vein on 11/24/22. He was initiated on NSAIDS given h/o recent duodenal ulcer and trying to avoid anticoagulation. However, on 11/25/22, the thrombus was no longer seen on the follow up ultrasound. This begged the question of possible embolization. The patient was ordered a CTA of the chest and was about to receive a midline for it, but became agitated and left AMA. Prior to this, I personally located two syringes on his person during a physical exam today which he was securing with a hairtie around his left leg. One of these syringes was new, still in packaging, with a needle attached. The other was old, 20 cc in volume, without needle attached, and with markings erased and clearly previously used. These were confiscated and a behavioral plan was instituted. We explained to the patient that we would convert all of his therapies to oral and that we would get a midline in him for a CTA of the chest but that we would then immediately remove it after the test since there was difficulty placing an IV for the test. The patient verbalized that he felt that his pain was not being addressed, but then refused to take oral medications for it and left AMA, despite being advised that an untreated PE could cause him to potentially . He was hemodynamically stable today, however. Because of cellulitis of RUE associated with the thrombus and concurrent Lyme disease, the patient is being discharged with a script for augmentin which was target both. Blood cultures were negative. His elevated LFTs on this admission were thought to be due to alcoholic liver injury. Care for patient as well as completion of his discharge summary on day of discharge took 60 minutes. Home Meds and New Rx's Prescriptions: New thiamine HCl (vitamin B1) 100 mg tablet 100 mg PO DAILY Qty: 30 0RF multivitamin Tablet 1 tab PO DAILY Qty: 30 0RF amoxicillin-pot clavulanate 875-125 mg tablet 1 tab PO BID Qty: 10 0RF Continued (DME) Tegaderm-Absorbent 3 inx3.75 in See Rx Instructions .Route .MEDSUPPLY Qty: 10 0RF Rx Instructions: As directed on both ankles, change every 3-5 days until healed gabapentin 800 mg Tablet 800 mg PO TID Rx Instructions: LAST FILLED IN MAY OF 2022 FOR A 90 DAY SUPPLY clarithromycin 500 mg Tablet 500 mg PO BID 12 Days Qty: 24 0RF Patient Comments: stopped taking sucralfate 1 gram Tablet 1 g PO Q6H Qty: 120 0RF pantoprazole 40 mg Tablet,Delayed Release (Dr/Ec) 40 mg PO BID@ 30 Days Qty: 60 0RF folic acid 1 mg Tablet 1 mg PO QAM Qty: 30 0RF thiamine mononitrate (vit B1) [Vitamin B-1 (mononitrate)] 100 mg Tablet 100 mg PO QAM Qty: 30 0RF Discontinued gabapentin 800 mg tablet 800 mg PO TID Qty: 270 3RF buprenorphine-naloxone 8-2 mg film 1 film SL DAILY buprenorphine-naloxone [Suboxone] 12-3 mg film 1 film sublingual DAILY Rx Instructions: TAKES IN ADDITION TO 8MG FILM, BUT HASN'T HAD IN OVER A WEEK -SW 02/23/22 buprenorphine-naloxone 8-2 mg Film 2 film sublingual DAILY Rx Instructions: LAST PICKED UP 10/30/22 FROM [facility] FOR A 7 DAY SUPPLY doxycycline hyclate 100 mg tablet 100 mg PO BID Qty: 20 0RF Patient Comments: stopped taking amoxicillin 500 mg Capsule 1,000 mg PO BID 12 Days Qty: 48 0RF Patient Comments: stopped taking bismuth subsalicylate [Stomach Relief] 262 mg/15 mL Suspension 17 ml PO QID 12 Days Qty: 816 0RF Discharge Instructions Referrals: [facility] [Outside] Joel Martinez DO [Primary Care Provider] - Activity:: Activity as Tolerated Equipment/Supplies:: No Equipment Needed Diet:: As Tolerated Discharge Orders Discharge Orders: Discharge Order (Routine); Ordered 11/27/22 Ordered By: Rosy Baker Discharge Data Discharge Date/Time-TO BE ENTERED AT DEPARTURE: 11/27/22 16:07 DS: Summary Time Spent with Patient providing and/or coordinating discharge services: Greater than 30 minutes Status at Discharge Functional status at discharge: independent ambulation Overall status at discharge: patient is back to baseline Mental Status: mental status grossly normal Speech and Movement: speech and movement normal Mood: anxious mood, dysthymic mood, labile mood and irritable mood Affect: anxious affect and irritable affect Exam Narrative Exam Narrative: General: Agitated/tearful/anxious male, A&Ox3, not tremulous, not obviously withdrawing from alcohol HEENT: EOMI, MMM Heart: RRR, no m/r/g Lungs: CTAB Abdomen: soft, nontender, nonditsneded Extremities: no edema BLEs, as above - two syringes found secured around his LLE with a hair tie. Psych Mental Status: mental status grossly normal Speech and Movement: speech and movement normal Mood: anxious mood, dysthymic mood, labile mood and irritable mood Affect: anxious affect and irritable affect DS: Data Vitals/I&O Vitals and I&O: Vital Signs Temperature 36.8 C 11/27/22 11:50 Temperature Source Tympanic 11/27/22 11:50 Pulse 78 11/27/22 15:54 Pulse Rhythm Regular 11/27/22 15:00 Pulse 78 11/26/22 20:34 Respiratory Rate 18 11/27/22 11:50 Respiratory Effort Normal, Non-Labored 11/27/22 15:00 Respiratory Depth Normal 11/27/22 15:00 Respiratory Pattern Normal 11/27/22 15:00 Blood Pressure 113/57 L 11/27/22 11:50 Blood Pressure Mean 79 11/26/22 19:45 Blood Pressure Position Supine 11/25/22 09:46 Pulse Oximetry 99 11/27/22 11:50 Oxygen Delivery Method Room Air 11/27/22 11:50 Oxygen Flow Rate 0 11/27/22 11:50 Pain Level 9 11/27/22 11:50 Comment alert and oriented x3 . appropriate 11/27/22 00:11 Intake & Output 11/26/22 11/27/22 11/27/22 23:59 11:59 23:59 Intake Total 2140 / 3320 860 / 860 Output Total 1350 / 3100 Balance 790 / 220 860 / 860 Weight 62.6 kg Intake: IV 540 / 840 360 / 360 Oral 1600 / 2480 500 / 500 Output: Urine 1350 / 3100 Other: Urine Color Yellow Urine Appearance Clear Clear Clear Urine Odor Normal Stool Size Small Stool Characteristics Formed Voiding Methods Urinal Data Completed and Pending Completed studies during hospitalization [Text1]: CT abdomen/pelvis 11/20/22: 1. Chronic calcific pancreatitis, as described above.? The pancreatic duct measures up to 7-8 mm and appears to be partially occluded by a large calcification at the level the pancreatic head.? There is presently no obvious peripancreatic streaking but correlation with appropriate blood work recommended. 2. The surrounding duodenal C-loop is patulous.? This may be related to the pancreatic pathology. 3. Previously described calculi in the kidneys are no longer seen.? Presently no focal renal findings are no hydronephrosis. 4. Appendix is not able to be isolated is a separate structure.? No obvious appendicitis. Subtle colitis pattern in the sigmoid. US venous RUE 11/24/22: 1.? Positive study for the presence of 9 cm length partially occlusive intraluminal clot in the basilar vein. 2.? Other veins in the upper extremity are patent. US venous RUE 11/25/22: No evidence of venous thrombosis.? Thickening of the wall of the basilic vein without evidence visible thrombus. Labs on day of discharge: Labs from last 24 hours 11/27/22 11/27/22 11/27/22 15:00 09:06 09:06 WBC 13.24 H RBC 3.71 L Hgb 12.7 L Hct 37.5 L MCV 101 H MCH 34.2 H MCHC 33.9 RDW 12.1 Plt Count 365 MPV 9.5 Immature Gran % 1.9 Neutrophils % 62.1 Lymphocytes % 23.9 Monocytes % 7.6 Eosinophils % 4.2 Basophils % 0.3 Nucleated RBC % 0.0 Absolute Neutrophils 8.22 H Absolute Lymphocytes 3.16 Absolute Monocytes 1.01 H Absolute Eosinophils 0.56 Absolute Basophils 0.04 Sodium Potassium Chloride Carbon Dioxide Anion Gap BUN Creatinine Est GFR (CKD-EPI 2020) Glucose Calcium Magnesium C-Reactive Protein Procalcitonin < 0.1 Vancomycin Trough Pending 11/27/22 09:06 WBC RBC Hgb Hct MCV MCH MCHC RDW Plt Count MPV Immature Gran % Neutrophils % Lymphocytes % Monocytes % Eosinophils % Basophils % Nucleated RBC % Absolute Neutrophils Absolute Lymphocytes Absolute Monocytes Absolute Eosinophils Absolute Basophils Sodium 136 Potassium 4.2 Chloride 104 Carbon Dioxide 25.1 Anion Gap 6.9 BUN 14 Creatinine 1.1 Est GFR (CKD-EPI 2020) 87.57 Glucose 164 H Calcium 9.0 Magnesium 2.1 C-Reactive Protein 1.92 H Procalcitonin Vancomycin Trough Preliminary micro results at discharge 11/26/22 12:45 Blood Culture - Preliminary Blood NO GROWTH 24 HOURS 11/26/22 12:30 Blood Culture - Preliminary Blood NO GROWTH 24 HOURS 11/23/22 18:18 Blood Culture - Preliminary Blood NO GROWTH 72 HOURS PFSH All Active Problems (Updated 11/27/22 @ 20:55 by Rosy Baker MD) Acute thrombosis of right basilic vein (Acute) Cellulitis of arm, right (Acute) Fever (Acute) Acute Lyme disease (Acute) Duodenal ulcer disease (Acute) Alcohol abuse with intoxication with complication (Acute) Acidosis, lactic (Acute) Alcohol withdrawal (Acute) Chronic calcific pancreatitis (Acute) Hepatic dysfunction (Acute) Abdominal pain (Acute) Nausea & vomiting (Acute) Fatty liver (Acute) IV drug user (Acute) Alcohol abuse (Chronic) Transaminitis (Acute) Gallbladder polyp (Acute) GI bleeding (Chronic) Dilated pancreatic duct (Acute) Opioid abuse (Acute) DVT prophylaxis (Acute) Discharge planning issues (Acute) Thrombocytopenia (Chronic) Portal hypertensive gastropathy (Acute) Nicotine dependence (Acute) Unsheltered homelessness (Acute) Homelessness (Acute) Agitation (Acute) COVID-19 (Acute) Alcohol withdrawal (Acute) Acute pancreatitis (Acute) Duodenal mass (Acute) Alcoholism (Acute) Infected abrasion of skin of right ankle (Acute) Infected abrasion of skin of left ankle (Acute) Agitation (Acute) Polysubstance use disorder (Acute) Contusion of right knee (Acute) Lyme disease (Acute) Abrasion (Acute) Trauma (Acute) Inflammatory arthritis (Acute) Alcoholic ketoacidosis (Acute) Vomiting (Acute) Abdominal pain (Acute) Alcoholic ketoacidosis (Acute) Abdominal pain with vomiting (Acute) Depression with anxiety (Acute) Family history of schizophrenia (Chronic) Father Migraine with aura (Acute) Homeless (Acute) Alcoholic fatty liver (Acute) Severe depression (Chronic) Alcohol abuse (Chronic) Heroin abuse (Chronic) Elevated transaminase level (Acute) Chronic back pain (Chronic) Anxiety, generalized (Chronic) Medical History (Updated 11/27/22 @ 20:55 by Rosy Baker MD) Depression DKA (diabetic ketoacidosis) Duodenitis History of alcohol abuse Opiate addiction Pancreatitis Surgical History No significant past surgical history No significant past surgical history Family History Mother Heart disease Asthma Father No problems noted. Sister Asthma Sister No problems noted. Brother No problems noted. Grandfather Essential hypertension Heart disease Asthma Grandfather Essential hypertension Heart disease Grandmother No problems noted. Grandmother No problems noted. Son No problems noted. Daughter No problems noted. Daughter Asthma Mother Heart disease Diabetes Father Heart disease Stroke Hypertension Self No problems noted. Sister Diabetes Hypertension Maternal Grandmother Cancer type Social History Smoking/Tobacco Use Status: Current every day Tobacco Type: cigarettes Smoking packs per day: 1 Smoking cigarettes per day: 20.0 Years smoked: 30 Smoking pack-years: 30.00 Counseling given: provider counseling and support medications Smoking risk assessment performed?: Yes Alcohol Intake: current Alcohol Intake frequency: 0-2 drinks per day Alcohol type: beer and hard liquor Counseling given: Yes Counseling provided: provider counseling and other Drug use: Never Substance use type: marijuana, IV drugs, methamphetamine and other Details: fentanyl Counseling given: Yes Counseling provided: provider counseling Details: States has used some oxycotin from his doctor, denies heroin use. past IV drug user. 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
--- NOTE | 2022-11-27 16:28 | PDOC.CMDIS ---
Date of service: 11/27/22 Time of Service: 16:28 Care Management Discharge Plan Reason for Hospitalization: Alcohol withdrawal Discharge Plan: Jose left the hospital AMA.
== END 2022-11-27 16:07 | disposition left against medical advice (07) | DRG 894 ==
LOC: ER 11-21 06:08 → ICU 11-21 07:24 → MS 11-26 21:56
PROVIDERS: Internal Medicine; Admitting Provider Family Medicine; Emergency Provider Student in an Organized Health Care Education/Training Program; PCP Family Medicine; Visit Provider Family Medicine
DX: F10.232 Alcohol dependence with withdrawal with perceptual disturbance (principal); K86.1 Other chronic pancreatitis; A69.20 Lyme disease, unspecified; E87.20 Acidosis, unspecified; K76.6 Portal hypertension; L03.114 Cellulitis of left upper limb; T80.1XXA Vascular complications following infusion, transfusion and therapeutic injection, initial encounter; K26.9 Duodenal ulcer, unspecified as acute or chronic, without hemorrhage or perforation; F11.10 Opioid abuse, uncomplicated; R11.2 Nausea with vomiting, unspecified; R74.01 Elevation of levels of liver transaminase levels; D69.6 Thrombocytopenia, unspecified; K31.89 Other diseases of stomach and duodenum; F41.8 Other specified anxiety disorders; G43.109 Migraine with aura, not intractable, without status migrainosus; K70.0 Alcoholic fatty liver; M54.9 Dorsalgia, unspecified; G89.29 Other chronic pain; F17.210 Nicotine dependence, cigarettes, uncomplicated; R50.9 Fever, unspecified; Z59.02 Unsheltered homelessness; I80.8 Phlebitis and thrombophlebitis of other sites
CPT/HCPCS: 36410; 36415; 80048; 80053; 80076; 80307; 83690; 84145; 85027; 85652; 87040; 96374; 96375; 99291; 80202; 80320; 82746; 83735; 85025; 86140; 93971; 99232; 99239; J0690; J1170; J1885; J2060; J2270; J3360

== ENCOUNTER 2023-02-12 12:54 | Emergency (ER) | payer MEDICAID, SELFPAY ==
[2023-02-12 12:58] VITALS: BP 129/77; PULSE 88; RESP 18; TEMP 36.8; O2SAT 98
--- NOTE | 2023-02-12 13:10 | ED.GENADUL_ITS ---
Discharge Plan Disposition Patient Disposition: Home Discharge Details Chief Complaint: GenMedical Clinical Impression: Opioid abuse Primary Care Provider: Joel Martinez ED Provider: Selvin Reis Home Meds and New Rx's Prescriptions: No Action (DME) Tegaderm-Absorbent 3 inx3.75 in See Rx Instructions .Route .MEDSUPPLY Qty: 10 0RF Rx Instructions: As directed on both ankles, change every 3-5 days until healed gabapentin 800 mg Tablet 800 mg PO TID Rx Instructions: LAST FILLED IN MAY OF 2022 FOR A 90 DAY SUPPLY sucralfate 1 gram Tablet 1 g PO Q6H Qty: 120 0RF Patient Comments: pt states no longer taking 02/12/23 folic acid 1 mg Tablet 1 mg PO QAM Qty: 30 0RF Patient Comments: pt states no longer taking 02/12/23 thiamine mononitrate (vit B1) [Vitamin B-1 (mononitrate)] 100 mg Tablet 100 mg PO QAM Qty: 30 0RF Patient Comments: pt states no longer taking 02/12/23 thiamine HCl (vitamin B1) 100 mg tablet 100 mg PO DAILY Qty: 30 0RF Patient Comments: pt states no longer taking 02/12/23 multivitamin Tablet 1 tab PO DAILY Qty: 30 0RF Patient Comments: pt states no longer taking 02/12/23 amoxicillin-pot clavulanate 875-125 mg tablet 1 tab PO BID Qty: 10 0RF Patient Comments: pt states no longer taking 02/12/23 Discharge Instructions Instructions: Opioid Use Disorder (ED) Additional Instructions: Please follow-up with [facility], [facility], and your primary care physician for further Medical Decision Making 37-year-old male history of polysubstance abuse presents referred in by [facility] for evaluation and screening to initiate Suboxone treatment. Patient last used within the last 24 to 48 hours. Patient is hemodynamically stable afebrile nontoxic. No signs of withdrawal. Evidence of track martinez on bilateral upper extremities without signs of active infection. I had spoken with multiple team members from the [facility] to clarify the referral, their needs and the patient needs and determine the most appropriate course of action for his future treatment. Given no active withdrawal patient will be discharged with multiple resources through the [facility], primary care, and [facility] HPI General Date/Time Provider Initiated Documentation: 02/12/23 13:03 . HPI Narrative: 37-year-old male history of polysubstance abuse referred in from [facility] for medical screening examination in the setting of substance abuse. Patient was told by [facility] that we would initiate the screening process for him and potentially start him on Suboxone. Patient last used within the last 24 to 48 hours. Denies fevers chills nausea vomiting or other systemic signs of illness Related Data Home Medications Medication Instructions Recorded Confirmed Tegaderm-Absorbent #10 ea 03/03/22 11/20/22 gabapentin 800 mg tablet 800 mg PO TID 11/08/22 02/12/23 folic acid 1 mg tablet 1 mg PO QAM #30 tabs 11/12/22 11/20/22 sucralfate 1 gram tablet 1 g PO Q6H #120 tabs 11/12/22 11/20/22 thiamine mononitrate (vit B1) 100 100 mg PO QAM #30 tabs 11/12/22 11/20/22 mg tablet (Vitamin B-1 (mononitrate)) amoxicillin 875 mg-potassium 1 tab PO BID #10 tabs 11/27/22 clavulanate 125 mg tablet multivitamin 1 tab PO DAILY #30 tabs 11/27/22 thiamine HCl (vitamin B1) 100 mg 100 mg PO DAILY #30 tabs 11/27/22 tablet Previous Rx's Medication Instructions Recorded Tegaderm-Absorbent #10 ea 03/03/22 folic acid 1 mg tablet 1 mg PO QAM #30 tabs 11/12/22 sucralfate 1 gram tablet 1 g PO Q6H #120 tabs 11/12/22 thiamine mononitrate (vit B1) 100 100 mg PO QAM #30 tabs 11/12/22 mg tablet (Vitamin B-1 (mononitrate)) amoxicillin 875 mg-potassium 1 tab PO BID #10 tabs 11/27/22 clavulanate 125 mg tablet multivitamin 1 tab PO DAILY #30 tabs 11/27/22 thiamine HCl (vitamin B1) 100 mg 100 mg PO DAILY #30 tabs 11/27/22 tablet Allergies Allergy/AdvReac Type Severity Reaction Status Date / Time No Known Allergies Allergy Verified 02/12/23 13:02 General Stated Complaint: GenMedical KAVEH: 5 Review of Systems Narrative: Review of Systems Constitutional: negative Eyes: negative ENT: negative Cardiovascular: negative Respiratory: negative Gastrointestinal: negative : negative Musculoskeletal: negative Skin: negative Neurologic: negative Psych: negative PFSH All Active Problems (Updated 02/12/23 @ 13:28 by Selvin Reis MD) Opioid abuse (Acute) Acute thrombosis of right basilic vein (Acute) Cellulitis of arm, right (Acute) Fever (Acute) Acute Lyme disease (Acute) Duodenal ulcer disease (Acute) Alcohol withdrawal (Acute) Chronic calcific pancreatitis (Acute) Hepatic dysfunction (Acute) Abdominal pain (Acute) Nausea & vomiting (Acute) Fatty liver (Acute) IV drug user (Acute) Alcohol abuse (Chronic) Transaminitis (Acute) Gallbladder polyp (Acute) GI bleeding (Chronic) Dilated pancreatic duct (Acute) Opioid abuse (Acute) Discharge planning issues (Acute) Thrombocytopenia (Chronic) Portal hypertensive gastropathy (Acute) Nicotine dependence (Acute) Unsheltered homelessness (Acute) Homelessness (Acute) Agitation (Acute) COVID-19 (Acute) Alcohol withdrawal (Acute) Acute pancreatitis (Acute) Duodenal mass (Acute) Alcoholism (Acute) Infected abrasion of skin of right ankle (Acute) Infected abrasion of skin of left ankle (Acute) Agitation (Acute) Polysubstance use disorder (Acute) Contusion of right knee (Acute) Lyme disease (Acute) Abrasion (Acute) Trauma (Acute) Inflammatory arthritis (Acute) Alcoholic ketoacidosis (Acute) Vomiting (Acute) Abdominal pain (Acute) Alcoholic ketoacidosis (Acute) Abdominal pain with vomiting (Acute) Depression with anxiety (Acute) Family history of schizophrenia (Chronic) Father Migraine with aura (Acute) Homeless (Acute) Alcoholic fatty liver (Acute) Severe depression (Chronic) Alcohol abuse (Chronic) Heroin abuse (Chronic) Elevated transaminase level (Acute) Chronic back pain (Chronic) Anxiety, generalized (Chronic) Medical History (Updated 02/12/23 @ 13:28 by Selvin Reis MD) Depression DKA (diabetic ketoacidosis) Duodenitis History of alcohol abuse Opiate addiction Pancreatitis Surgical History No significant past surgical history No significant past surgical history Family History Mother Heart disease Asthma Father No problems noted. Sister Asthma Sister No problems noted. Brother No problems noted. Grandfather Essential hypertension Heart disease Asthma Grandfather Essential hypertension Heart disease Grandmother No problems noted. Grandmother No problems noted. Son No problems noted. Daughter No problems noted. Daughter Asthma Mother Heart disease Diabetes Father Heart disease Stroke Hypertension Self No problems noted. Sister Diabetes Hypertension Maternal Grandmother Cancer type Social History Smoking/Tobacco Use Status: Current every day Tobacco Type: cigarettes Smoking packs per day: 1 Smoking cigarettes per day: 20.0 Years smoked: 30 Smoking pack-years: 30.00 Counseling given: provider counseling and support medications Smoking risk assessment performed?: Yes Alcohol Intake: current Alcohol Intake frequency: 0-2 drinks per day Alcohol type: beer and hard liquor Counseling given: Yes Counseling provided: provider counseling and other Drug use: Never Substance use type: marijuana, heroin, opiates, IV drugs, methamphetamine and other Details: fentanyl Counseling given: Yes Counseling provided: provider counseling Housing: homeless Number of Children: 3 Other: Lives alone in a tent in the [facility] What type of physical activity do you participate in: none Drive 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 Working smoke detector in home: Yes Carbon monox detector in home: Yes Do you feel safe at home: Yes Do you feel safe in your relationship?: Yes Exam Narrative Exam Narrative: Physical Examination General: alert, awake, cooperative, resting comfortably, no acute distress HEENT: normocephalic, atraumatic; PERRL, EOM intact, conjunctiva normal; no nasal discharge; moist mucous membranes, oral and pharyngeal mucosa normal, tolerating secretions Neck: supple, trachea midline; full ROM Chest: normal to inspection Respiratory: normal respiratory effort, speaking in full sentences, clear to auscultation, no wheezing, rales or rhonchi Cardiac: regular rate, regular rhythm, S1S2 intact, no murmurs rubs or gallops GI: abdomen soft, non-tender, non-distended; no palpable mass or hepatosplenomegaly Skin: Evidence of track martinez to bilateral upper extremities Neuro: AAOx3, normal speech, moving all extremities Psych: Appropriate mood and affect Course Vital Signs Vital signs: Vital Signs Temperature 36.8 C 02/12/23 12:58 Pulse 88 02/12/23 12:58 Respiratory Rate 18 02/12/23 12:58 Blood Pressure 129/77 02/12/23 12:58 Pulse Oximetry 98 02/12/23 12:58 Temperature 36.8 C 02/12/23 12:58 Temperature Source Tympanic 02/12/23 12:58 Pulse 88 02/12/23 12:58 Respiratory Rate 18 02/12/23 12:58 Blood Pressure 129/77 02/12/23 12:58 Blood Pressure Position Sitting 02/12/23 12:58 Pulse Oximetry 98 02/12/23 12:58 Oxygen Delivery Method Room Air 02/12/23 12:58 Oxygen Flow Rate 0 02/12/23 12:58 Pain Level 10 02/12/23 12:58
== END 2023-02-12 13:42 | disposition home or self-care (01) ==
PROVIDERS: Emergency Provider Emergency Medicine; PCP Family Medicine
DX: F11.10 Opioid abuse, uncomplicated (principal)
CPT/HCPCS: 99281; 99282

== ENCOUNTER 2023-09-08 16:38 | Inpatient (IN) | payer MEDICAID, SELFPAY ==
[2023-09-08 16:51] VITALS: BP 109/67; PULSE 77; RESP 16; TEMP 36.6; O2SAT 98
--- NOTE | 2023-09-08 17:00 | DI.CT_ITS ---
Exam(s) CT UPPER EXTREMITY RT W EXAM: CT UPPER EXTREMITY RT W CLINICAL HISTORY: Right proximal forearm abscess pain out of proport TECHNIQUE: Imaging Protocol: Axial computed tomography images with coronal and sagittal reformatted images were created and reviewed. CONTRAST MATERIAL: Intravenous: Omnipaque 350 Contrast volume:100 contrast route:IV - COMPARISON: CT LT. UPPER EXTREMITY W CONTRAST from 12/11/2017 FINDINGS: SOFT TISSUES: There is a multiloculated peripherally enhancing abnormal fluid collection in the media l aspect of the proximal forearm. The epicenter is in the deep subcutaneous and muscular fascial daylin ne. Also appears to involve the underlying musculature. This abscess measures approximately 7.5 X 5 x 5 cm. There is not contain gas. Also no gas in the adjacent soft tissues. Osseous: No fractures. No evidence of osteomyelitis. IMPRESSION: Large medially located abscess in the proximal half of the forearm. RADIATION DOSE DELIVERED: Total DLP DATA REPOSITORY: All CT scans at this facility are submitted to the National Radiology Data Registry (NRDR) Dose Index Registry (DIR) with the [employer] (A[employer]). RADIATION OPTIMIZATION: All CT scans at this facility use at least one of these dose optimization te chniques: automated exposure control; mA and/or kV adjustment per patient size (includes targeted exa ms where dose is matched to clinical indication); or iterative reconstruction.
--- NOTE | 2023-09-08 17:04 | ED.GENADUL_ITS ---
Discharge Plan Disposition Patient Disposition: Admit to [facility] Discharge Details Chief Complaint: Cellulitis Clinical Impression: Abscess of right arm, Hypokalemia, Hypocalcemia Primary Care Provider: Joel Martinez ED Provider: Nik Peña Home Meds and New Rx's Prescriptions: No Action buprenorphine-naloxone [Suboxone] 4-1 mg film 1 film sublingual DAILY HPI General Date/Time Provider Initiated Documentation: 09/08/23 16:56 . HPI Narrative: MDM This is an uncomfortable appearing otgye-gott-kptlzlfd normothermic and not tachycardic 38-year-old IV drug user with significant right arm abscess concerning for possibility of deep space infection for which patient will receive vancomycin, clindamycin, and 2 g of ceftriaxone along with CT right upper extremity with IV contrast. No pain out of proportion to suggest necrotizing soft tissue infection. I considered right upper extremity DVT however patient has no palpable cords in his right humerus so I did not think that he required a right upper extremity duplex study nor a CT angiogram of his right upper extremity has his hand is warm well-perfused with intact sensation and motor function. Patient's vital signs are not consitent with SIRS criteria so I did not obtain blood cultures nor check a lactate. Patient has had no color changes in his hand and has no history of cervical ribs so my suspicion for thoracic outlet syndrome is low. Patient is neurologically intact and I have no suspicion for CVA so I do not feel that the patient requires an MRI. Patient denies IV drug use into his right upper extremity however will ensure that there is not a foreign body using CT scan prior to anticipated bedside incision and drainage. Patient has no housing at this point. Based on the patient's clinical abscess I did not complete a bedside ultrasound. 6 PM Basic metabolic panel showing no anion gap. Normal renal function. Mild hyperglycemia but normal bicarbonate??not consistent with DKA. Very mild hypocalcemia and hypokalemia. CBC shows leukocytosis and mild normocytic anemia. No thrombocytopenia. Compared to prior dated 1 year ago leukocytosis is worsened and anemia has improved. 8:[address] scan showing multifocal rim-enhancing fluid collection. Intramuscular component difficult to exclude. Abscess measures 7.5 cm x 5 x 4.5 cm. 11 PM Late charting due to patient care. I spoke with Dr. Lopez from general surgery. He advised 2 sets of both anaerobic and anaerobic wound cultures which I ordered and completed following bedside incision and drainage which patient tolerated fairly well. Dr. Lopez requested the patient be n.p.o. at midnight will be admitted to the hospitalist service. Spoke with Dr. Owusu who epi ously agreed to accept the patient for hospitalization. He requested comprehensive metabolic panel which showed markedly elevated LFTs similar to prior. Patient was resting comfortably. He was nontachycardic. His pain was controlled with ketorolac. Given purulent drainage from wound I elected to defer piperacillin/tazobactam and ampicillin-sulbactam at this point in time to focus instead on covering for staph and strep. Chronic conditions affecting the care of the patient: IV drug use History obtained from an outside historian: N/A [place] [facility] [place]ations: IV antibiotics Social determinants of health affecting disposition: Undomiciled Management discussed with: Orthopedics and hospitalist Treatment/interventions considered: N/A Response to therapies provided: N/A HPI This is a tvvhz-hhef-cksblqwr 38-year-old male on buprenorphine with history of IV drug use arrived to the emergency department from urgent care in the setting of an abscess to his right forearm and left hands. Patient reports that his abscess began forming last week. He had had similar symptoms on his left upper extremity 2 weeks ago and these resolved spontaneously. He has a history of staph infections. He is taken no recent antibiotics. He denies any recent fevers. He has no history of diabetes but is a daily smoker. He reports he last used IV drugs approximately 3 months ago. He denies possibility of an IV drug injection into his right upper extremity. He did not recently fall nor hit his right upper extremity. Exam General: Well-appearing in no acute distress speaking in complete sentences. Head: Normocephalic, atraumatic. Eye: Extraocular eye movements intact. No conjunctival injection. No scleral icterus. Ear, nose, mouth, throat: Grossly normal inspection. Normal voice, handling secretions normally. Neck: Trachea midline. Cardiovascular: Well-perfused distal extremities. Respiratory: Nonlabored respiration. Gastrointestinal: Nondistended abdomen. Musculoskeletal: On the dorsal side of the proximal right forearm there is a fluctuant approximately 4 x 3 cm fluctuant area. There is significant pain in the surrounding area. There is right cervical lymphadenopathy. There is no palpable cords in the right humerus. Right hand is warm and well-perfused with 2+ right radial pulse. Cap refill less than 2 seconds in the right fingertips. Sensation and motor function intact in the right hand across the radial, median, and ulnar nerve distributions. Left hand with several small excoriations on the dorsal surface. No fluctuance. Sensation motor function intact to the left hand which is warm and well-perfused with a 2+ left radial pulse. Skin: Normal for age and race, grossly normal temperature and turgor. No acute rash. Neurologic: Alert and appropriate, no apparent acute deficits. Psychiatric: Mood and manner are appropriate. Grooming and personal hygiene are appropriate. Related Data Home Medications Medication Instructions Recorded Confirmed buprenorphine 4 mg-naloxone 1 mg 1 film sublingual DAILY 09/08/23 09/08/23 sublingual film (Suboxone) Allergies Allergy/AdvReac Type Severity Reaction Status Date / Time No Known Allergies Allergy Verified 09/08/23 16:51 General Stated Complaint: Cellulitis KAVEH: 3 Course Vital Signs Vital signs: Vital Signs Temperature 36.6 C 09/08/23 16:51 Pulse 77 09/08/23 16:51 Respiratory Rate 16 09/08/23 16:51 Blood Pressure 109/67 09/08/23 16:51 Pulse Oximetry 98 09/08/23 16:51 Temperature 36.6 C 09/08/23 16:51 Temperature Source Temporal Artery Scan 09/08/23 16:51 Pulse 77 09/08/23 16:51 Respiratory Rate 16 09/08/23 16:51 Respiratory Effort Normal, Non-Labored 09/08/23 16:53 Blood Pressure 109/67 09/08/23 16:51 Blood Pressure Position Sitting 09/08/23 16:51 Pulse Oximetry 98 09/08/23 16:51 Oxygen Delivery Method Room Air 09/08/23 16:51 Oxygen Flow Rate 0 09/08/23 16:51 Pain Level 8 09/08/23 16:51 Procedures Abscess I/D Site: Upper Extremity Side (if applicable): Right Local Anesthetic: Lidocaine 2% and With Epi Amount of anesthesia used (mL): 20 Technique: Incised with #11 Blade Amount of fluid expressed (mL): 20 Irrigation: No Packing used?: None Medical Decision Making Quality:SDOH Health Related Social Needs: No Data to Display PFSH All Active Problems (Updated 09/08/23 @ 22:55 by Fidel Owusu) Hypocalcemia (Acute) Hypokalemia (Acute) Abscess of right arm (Acute) Acute thrombosis of right basilic vein (Acute) Cellulitis of arm, right (Acute) Fever (Acute) Acute Lyme disease (Acute) Duodenal ulcer disease (Acute) Alcohol withdrawal (Acute) Chronic calcific pancreatitis (Acute) Hepatic dysfunction (Acute) Abdominal pain (Acute) Nausea & vomiting (Acute) Fatty liver (Acute) IV drug user (Chronic) Alcohol abuse (Chronic) Transaminitis (Chronic) Gallbladder polyp (Acute) GI bleeding (Chronic) Dilated pancreatic duct (Acute) Opioid abuse (Chronic) Discharge planning issues (Acute) Thrombocytopenia (Chronic) Portal hypertensive gastropathy (Acute) Nicotine dependence (Acute) Unsheltered homelessness (Acute) Homelessness (Acute) Agitation (Acute) COVID-19 (Acute) Alcohol withdrawal (Acute) Acute pancreatitis (Acute) Duodenal mass (Acute) Alcoholism (Acute) Infected abrasion of skin of right ankle (Acute) Infected abrasion of skin of left ankle (Acute) Agitation (Acute) Polysubstance use disorder (Acute) Contusion of right knee (Acute) Lyme disease (Acute) Abrasion (Acute) Trauma (Acute) Inflammatory arthritis (Acute) Alcoholic ketoacidosis (Acute) Vomiting (Acute) Abdominal pain (Acute) Alcoholic ketoacidosis (Acute) Abdominal pain with vomiting (Acute) Depression with anxiety (Acute) Family history of schizophrenia (Chronic) Father Migraine with aura (Acute) Homeless (Acute) Alcoholic fatty liver (Acute) Severe depression (Chronic) Alcohol abuse (Chronic) Heroin abuse (Chronic) Elevated transaminase level (Acute) Chronic back pain (Chronic) Anxiety, generalized (Chronic) Medical History (Updated 09/08/23 @ 22:55 by Fidel Owusu) Duodenitis DKA (diabetic ketoacidosis) Pancreatitis History of alcohol abuse Depression Opiate addiction Surgical History No significant past surgical history No significant past surgical history Family History Mother Heart disease Asthma Father No problems noted. Sister Asthma Sister No problems noted. Brother No problems noted. Grandfather Essential hypertension Heart disease Asthma Grandfather Essential hypertension Heart disease Grandmother No problems noted. Grandmother No problems noted. Son No problems noted. Daughter No problems noted. Daughter Asthma Mother Heart disease Diabetes Father Heart disease Stroke Hypertension Self No problems noted. Sister Diabetes Hypertension Maternal Grandmother Cancer type Social History Smoking/Tobacco Use Status: Current every day Tobacco Type: cigarettes Smoking packs per day: 1 Smoking cigarettes per day: 20.0 Years smoked: 30 Smoking pack- years: 30.00 Counseling given: provider counseling and support medications Smoking risk assessment performed?: Yes Alcohol Intake: current Alcohol Intake frequency: 0-2 drinks per day Alcohol type: beer and hard liquor Counseling given: Yes Counseling provided: provider counseling and other Drug use: Never Substance use type: marijuana, heroin, opiates, IV drugs, methamphetamine and other Details: fentanyl Counseling given: Yes Counseling provided: provider counseling Details: on suboxone, weaning Housing: homeless Number of Children: 3 Other: Lives alone in a tent in the [facility] What type of physical activity do you participate in: none Drive intox or ride 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 Working smoke detector in home: Yes Carbon monox detector in home: Yes Do you feel safe at home: Yes Do you feel safe in your relationship?: Yes PAWSS Have you Been Recently Intoxicated or Drunk Within the Last 30 days?: Yes Have you Ever Experienced Previous Episodes of Alcohol Withdrawal?: Yes Have you ever Experienced Withdrawal Seizures?: No Have you ever Experienced Delirium Tremens(DT)s?: Yes Have you ever undergone Alcohol Rehabilitation Treatment (i.e, inpt ot outpatient treatment programs)?: Yes Have you ever Experienced Blackouts?: Yes Have you ever Combined Alcohol with other Downers within the last 90 days?: No Have you ever Combined Alcohol with any other Substance of Abuse during the last 90 days?: Yes Positive Blood Alcohol level on Presentation? [PCS.BAL]: No Evidence of Increased Autonomic Activity (i.e. HR>120, tremor, sweating, agitation, nausea)?: No Result: 7
[2023-09-08 17:39] LABS: Abs Immature Grans 0.08 10^3/uL (0.0-0.06); Absolute Basophil Count 0.05 10^3/uL (0.0-0.2); Absolute Eosinophil Count 0.05 10^3/uL (0.0-0.7); Absolute Lymphocyte Count 2.67 10^3/uL (1.2-3.4); Absolute Neutrophil Count 11.66 10^3/uL (1.2-6.7); Basophils % 0.3; Eosinophils % 0.3; HCT 38.8 % (40.0-50.0); Immature Grans % 0.5; Lymphocytes % 16.4; MCH 31.3 pg (27.0-33.0); MCHC 33.5 % (32.0-36.0); MCV 94 fL (80-95); MPV 9.6 fL (8.0-11.0); Monocytes % 10.8; Neutrophils % 71.7; Platelet Count 319 10^3/uL (130-400); RBC 4.15 10^6/uL (4.36-5.78); RDW 14.1 % (11.8-14.1); RDW-SD 48.5 fL; WBC 16.26 10^3/uL (4.4-10.8)
[2023-09-08 17:51] LABS: Anion Gap 10.7 mmol/L (3-11); BUN 6 mg/dL (7-18); CO2 25.3 mmol/L (21.0-32.0); CREATININE 0.7 mg/dL (0.70-1.30); Calcium 8.3 mg/dL (8.5-10.1); Chloride 103 mmol/L (98-107); Estimated GFR 119.46 (mL/min/1.73m2); Glucose 118 mg/dL (74-106); Potassium 3.4 mmol/L (3.5-5.1); Sodium 139 mmol/L (136-145)
[2023-09-08 17:54] LABS: Absolute Monocyte Count 1.76 10^3/uL (0.1-0.8); Diff Comment Diff Reviewed; RBC Morphology Normal
[2023-09-08] MEDS: ACETAMINOPHEN 1,000 MG/100 ML BTL 400 MG IVPB (18:08)
[2023-09-08] MEDS: Normal Saline 500 ML IV (18:09)
[2023-09-08] MEDS: cefTRIAXone 2 GM/50 ML BAG IVPB (18:09)
[2023-09-08] MEDS: CLINDAMYCIN 600 MG/50 ML BAG 100 MG IVPB (18:23)
[2023-09-08] MEDS: VANCOMYCIN/WATER (PEG) 1.25 GM/250 ML BAG IV (18:54)
[2023-09-08] MEDS: Omnipaque 350 MG/ML 100 ML BTL IJ (18:56)
[2023-09-08] MEDS: Normal Saline - Diluent 50 ML VIAL IJ (18:57)
--- NOTE | 2023-09-08 20:00 | DI.VRAD_ITS ---
Addendum created by Angel Finney MD on 09/08/2023 8:09:01 PM EDT: THIS REPORT CONTAINS FINDINGS THAT MAY BE CRITICAL TO PATIENT CARE. The findings were verbally communicated via telephone conference with JESUS Espinoza at 8:08 PM EDT on 09/08/2023. The findings were acknowledged and understood. Initial report created on 09/08/2023 7:59:27 PM EDT: PROCEDURE INFORMATION: Exam: CT Right Upper Extremity With Contrast Exam date and time: 09/08/2023 6:43 PM Age: 38 years old Clinical indication: Mass or lump and swelling; Elbow and upper limb; Patient HX: Right forearm abscess pain out of proport TECHNIQUE: Imaging protocol: Computed tomography of the right upper extremity with contrast. Total images: 1672 Contrast material: 350; Contrast volume: 100 ml; Contrast route: INTRAVENOUS (IV); COMPARISON: US UPPER EXTREMITY VENOUS RT 11/25/2022 9:55 AM FINDINGS: Bones/joints: No bony destruction or periostitis. Soft tissues: Multiloculated rim enhancing fluid collection in the posteromedial aspect of the proximal forearm. Collection is centered upon the deep subcutaneous muscular fascial plane and extends into the superficial subcutaneous tissues and exerts mass effect upon the underlying musculature. Intramuscular component difficult to exclude. The collection measures about 7.5 x 5 x 4.5 cm. Adjacent subcutaneous stranding. No air within the collection. No soft tissue emphysema. IMPRESSION: Large forearm abscess. Dictated and Authenticated by: Angel Finney MD. Ordering:ARACELI Zaragoza MD
[2023-09-08 20:54] VITALS: PULSE 78; RESP 18; TEMP 36.4; O2SAT 96
[2023-09-08 21:44] VITALS: PULSE 78; RESP 16; O2SAT 99
[2023-09-08 21:50] VITALS: O2SAT 99
[2023-09-08 22:00] VITALS: O2SAT 100
[2023-09-08 22:02] LABS: ALT 835 U/L (16-63); AST 420 U/L (15-37); Albumin 2.6 g/dL (3.4-5.0); Alkaline Phosphatase 216 U/L (46-116); Anion Gap 10.8 mmol/L (3-11); BUN 4 mg/dL (7-18); Bilirubin, Total 0.6 mg/dL (0.2-1.0); CO2 25.2 mmol/L (21.0-32.0); CREATININE 0.7 mg/dL (0.70-1.30); Calcium 7.9 mg/dL (8.5-10.1); Chloride 103 mmol/L (98-107); Estimated GFR 119.46 (mL/min/1.73m2); Glucose 89 mg/dL (74-106); Potassium 3.6 mmol/L (3.5-5.1); Sodium 139 mmol/L (136-145); Total Protein 6.4 g/dL (6.4-8.2)
[2023-09-08 22:03] LABS: ETHANOL BLOOD < 3.0 mg/dL (<10)
[2023-09-08 22:11] VITALS: O2SAT 100
--- NOTE | 2023-09-08 22:51 | W.PM.HP.N ---
Date of service: 09/08/23 Time of Service: 22:51 Assessment and Plan Assessment and plan (1) Abscess of right arm: Start date: 09/08/23 Status: Acute Assessment and plan: This is a 38-year-old gentleman with continued IV drug use and opioid abuse in the past now on Suboxone but had a positive urine drug screen for cocaine and THC though negative for opioids. Suboxone and fentanyl were not included in the drug screen. Patient had I&D in the ED and this will be monitored with orthopedic surgical consultation in place and patient being n.p.o. Continue IV vancomycin with Rocephin. Blood cultures will be performed. There has been no previous history of endocarditis with no previous echocardiogram performed. Patient is compromised with poor hygiene and being homeless. Case management needs to review the patient's social situation and hopefully improve both. He is a full code. (2) Hypokalemia: Start date: 09/08/23 Status: Acute Assessment and plan: Mild with patient to have IV fluids overnight and repletion if needed. Most likely secondary to poor nutrition chronically with patient homeless. (3) Hypocalcemia: Start date: 09/08/23 Status: Acute Assessment and plan: With chronic malnutrition likely in this homeless patient. Monitor lab daily and supplement if needed. (4) IV drug user: Status: Chronic Assessment and plan: Patient has had recurrent infections with IV drug use though denying recent use in the last 3 months. His lesions over his left hand appear to be multiple as with sub-cutaneous popping which he denies. Blood cultures and continue IV vancomycin with ceftriaxone. If blood cultures positive, echocardiogram looking for vegetations on the tricuspid valve. Orthopedic surgical consultation for further drainage to be removed in the. (5) Opioid abuse: Status: Chronic Assessment and plan: Chronically on Suboxone which will be continued while inpatient with avoidance of additional narcotics. The patient is responding to Toradol IV. Urine drug screen is positive for THC and cocaine with suspicion for continued recent use. (6) Transaminitis: Status: Chronic Assessment and plan: Will follow-up ultrasound of the gallbladder and liver with limited abdominal ultrasound in the morning. Repeat Hepatitis C screening and HIV screening. History of Present Illness History of Present Illness Chief Complaint: Right arm swelling with IV drug history last used 3 months ago Narrative: This is a 38-year-old male patient who is homeless, camping [place] having had his living materials removed recently. He reported to the local urgent care center complaining of right forearm pain with apparent large abscess. He does have IV drug use by history and stated that he last used 3 months ago. The swelling in his right forearm began about 1 week prior to presentation he had a similar episode over his left hand 2 weeks prior. He denies any fever or chills and he denies any chest discomfort or respiratory symptoms. He also denies sub-cutaneous popping. Patient states his last alcohol use was 3 months ago and he does have chronically elevated liver functions without evidence of alcoholic cirrhosis or infectious hepatitis with past imaging or lab. Review of chart did reveal previous hepatitis C and HIV screening which was negative late spring 2022. He does have a history of Staphylococcus infections but no history of endocarditis. He has had recurrent pancreatitis in the past with alcohol use but is not aware of having cirrhosis of the liver or ascites and he has had no abdominal swelling. Previous ultrasound of the abdomen did reveal an 11 mm gallbladder polyp also in the spring 2022 which did recommend follow-up. He is not having any other abdominal complaints presently. He is uncomfortable with his right forearm pain. He is very unkempt and unwashed as well as odiferous. He also has scabs over his left hand where he had previous infections and swelling as well as scabbing over his left face with no history of trauma. He is a poor historian. In the ED he did have I&D of his right forearm abscess and CT scan showed no deep tissue infection but is significant abscess. Orthopedic surgery was consulted and will see the patient for possible further drainage of the abscess in the morning. He will remain n.p.o. He is a code. Review of Systems Narrative: 13 point review of systems otherwise unrevealing or stable. Patient is thin and does not eat well being homeless. He does smoke tobacco. [facility] All Active Problems Abscess of right forearm (Acute) Hypocalcemia (Acute) Hypokalemia (Acute) Abscess of right arm (Acute) Acute thrombosis of right basilic vein (Acute) Cellulitis of arm, right (Acute) Fever (Acute) Acute Lyme disease (Acute) Duodenal ulcer disease (Acute) Alcohol withdrawal (Acute) Chronic calcific pancreatitis (Acute) Hepatic dysfunction (Acute) Abdominal pain (Acute) Nausea & vomiting (Acute) Fatty liver (Acute) IV drug user (Chronic) Alcohol abuse (Chronic) Transaminitis (Chronic) Gallbladder polyp (Acute) GI bleeding (Chronic) Dilated pancreatic duct (Acute) Opioid abuse (Chronic) Discharge planning issues (Acute) Thrombocytopenia (Chronic) Portal hypertensive gastropathy (Acute) Nicotine dependence (Acute) Unsheltered homelessness (Acute) Homelessness (Acute) Agitation (Acute) COVID-19 (Acute) Alcohol withdrawal (Acute) Acute pancreatitis (Acute) Duodenal mass (Acute) Alcoholism (Acute) Infected abrasion of skin of right ankle (Acute) Infected abrasion of skin of left ankle (Acute) Agitation (Acute) Polysubstance use disorder (Acute) Contusion of right knee (Acute) Lyme disease (Acute) Abrasion (Acute) Trauma (Acute) Inflammatory arthritis (Acute) Alcoholic ketoacidosis (Acute) Vomiting (Acute) Abdominal pain (Acute) Alcoholic ketoacidosis (Acute) Abdominal pain with vomiting (Acute) Depression with anxiety (Acute) Family history of schizophrenia (Chronic) Father Migraine with aura (Acute) Homeless (Acute) Alcoholic fatty liver (Acute) Severe depression (Chronic) Alcohol abuse (Chronic) Heroin abuse (Chronic) Elevated transaminase level (Acute) Chronic back pain (Chronic) Anxiety, generalized (Chronic) Medical History Duodenitis DKA (diabetic ketoacidosis) Pancreatitis History of alcohol abuse Depression Opiate addiction Surgical History No significant past surgical history No significant past surgical history Family History Mother Heart disease Asthma Father No problems noted. Sister Asthma Sister No problems noted. Brother No problems noted. Grandfather Essential hypertension Heart disease Asthma Grandfather Essential hypertension Heart disease Grandmother No problems noted. Grandmother No problems noted. Son No problems noted. Daughter No problems noted. Daughter Asthma Mother Heart disease Diabetes Father Heart disease Stroke Hypertension Self No problems noted. Sister Diabetes Hypertension Maternal Grandmother Cancer type Social History Smoking/Tobacco Use Status: Current every day Tobacco Type: cigarettes Smoking packs per day: 1 Smoking cigarettes per day: 20.0 Years smoked: 30 Smoking pack-years: 30.00 Counseling given: provider counseling and support medications Smoking risk assessment performed?: Yes Alcohol Intake: current Alcohol Intake frequency: 0-2 drinks per day Alcohol type: beer and hard liquor Counseling given: Yes Counseling provided: provider counseling and other Drug use: Never Substance use type: marijuana, heroin, opiates, IV drugs, methamphetamine and other Details: fentanyl Counseling given: Yes Counseling provided: provider counseling Details: on suboxone, weaning Housing: homeless Number of Children: 3 Other: Lives alone in a tent in the [facility] What type of physical activity do you participate in: none Drive intox or ride w/intox local hazmat driver: No Working smoke detector in home: Yes Carbon monox detector in home: Yes Do you feel safe at home: Yes Do you feel safe in your relationship?: Yes Meds Allergies and Home Medications Allergies Allergy/AdvReac Type Severity Reaction Status Date / Time No Known Allergies Allergy Verified 09/08/23 16:51 Home Medications Medication Instructions Recorded Confirmed Type buprenorphine 4 mg-naloxone 1 mg 1 film sublingual DAILY 09/08/23 09/08/23 History sublingual film (Suboxone) Exam Narrative Exam Narrative: General: Patient appears older than stated age, very thin and darkly tanned. His skin is unkempt and dirty and is odiferous during exam. He is alert and oriented at least to person place. He has a flattened affect with slow speech and keeps eyes closed for most of the conversation. He appears in moderate distress from the discomfort over his right forearm with clean bandage which status post I&D and bloody discharge on bandage. HEENT: Normocephalic, coarsened facial features with circular scab over left face. Eyes with pupils equal and reactive to light symmetrically, extraocular movement intact and sclera anicteric. Oropharynx with dry mucosa and poor dentition. Neck: Supple without JVD. Back: Normal posture without CVA tenderness. Lungs: Fair aeration and clear to auscultation percussion no focalizing rales or rhonchi. No expiratory wheeze. Heart: Regular rate and rhythm with no murmurs or gallops appreciated. Abdomen: Scaphoid contour, soft and nontender to palpation with no palpable hepatosplenomegaly. No focalizing tenderness or guarding. Bowel sounds positive in all quadrants. Genitalia/rectal: Exam deferred. Extremities: Right forearm with swelling and tenderness to palpation and slight fluctuance with bloody Kerlix bandage wrapped around forearm. Bandage was not removed status post I&D in the ED. Orthopedic surgery will be seeing patient. Cap refill is good. Left hand has swelling over the dorsum with multiple circular scabs without drainage. Slight erythema. No clubbing or cyanosis. Skin: Unkempt and dirty with scabs over left dorsal hand as well as left face as mentioned. Erythema with increased warmth to touch over right forearm with bloody bandage. Neuro: Cranial nerves II through XII gross intact, no focal motor deficits. No tremor. Psych: Flattened affect with depressed mood. Monotonous tone to voice. No abnormal thought processes. Remote and recent memory grossly intact. Results Imaging Imaging Studies: Exam: CT Right Upper Extremity With Contrast Exam date and time: 09/08/2023 6:43 PM Age: 38 years old Clinical indication: Mass or lump and swelling; Elbow and upper limb; Patient HX: Right forearm abscess pain out of proport TECHNIQUE: Imaging protocol: Computed tomography of the right upper extremity with contrast. Total images: 1672 Contrast material: 350; Contrast volume: 100 ml; Contrast route: INTRAVENOUS (IV); COMPARISON: US UPPER EXTREMITY VENOUS RT 11/25/2022 9:55 AM FINDINGS: Bones/joints: No bony destruction or periostitis. Soft tissues: Multiloculated rim enhancing fluid collection in the posteromedial aspect of the proximal forearm. Collection is centered upon the deep subcutaneous muscular fascial plane and extends into the superficial subcutaneous tissues and exerts mass effect upon the underlying musculature. Intramuscular component difficult to exclude. The collection measures about 7.5 x 5 x 4.5 cm. Adjacent subcutaneous stranding. No air within the collection. No soft tissue emphysema. IMPRESSION: Large forearm abscess. Labs 09/09/23 03:16 09/09/23 03:16 Labs: Laboratory Results - last 24 hr 09/08/23 09/08/23 17:32 21:28 WBC 16.26 H RBC 4.15 L Hgb 13.0 L Hct 38.8 L MCV 94 MCH 31.3 MCHC 33.5 RDW 14.1 Plt Count 319 MPV 9.6 Immature Gran % 0.5 Neutrophils % 71.7 Lymphocytes % 16.4 Monocytes % 10.8 Eosinophils % 0.3 Basophils % 0.3 Nucleated RBC % 0.0 Absolute Neutrophils 11.66 H Absolute Lymphocytes 2.67 Absolute Monocytes 1.76 H Absolute Eosinophils 0.05 Absolute Basophils 0.05 RBC Morphology Normal Sodium 139 139 Potassium 3.4 L 3.6 Chloride 103 103 Carbon Dioxide 25.3 25.2 Anion Gap 10.7 10.8 BUN 6 L 4 L Creatinine 0.7 0.7 Est GFR (CKD-EPI 2020) 119.46 119.46 Glucose 118 H 89 Calcium 8.3 L 7.9 L Total Bilirubin 0.6 AST 420 H ALT 835 H Alkaline Phosphatase 216 H Total Protein 6.4 Albumin 2.6 L Ethyl Alcohol < 3.0 Last Vital Signs Temp 36.4 C L 09/08/23 20:54 Pulse 78 09/08/23 21:44 Resp 16 09/08/23 21:44 BP 109/67 09/08/23 16:51 Pulse Ox 100 09/08/23 22:11 PAWSS Have you Been Recently Intoxicated or Drunk Within the Last 30 days?: Yes Have you Ever Experienced Previous Episodes of Alcohol Withdrawal?: Yes Have you ever Experienced Withdrawal Seizures?: No Have you ever Experienced Delirium Tremens(DT)s?: Yes Have you ever undergone Alcohol Rehabilitation Treatment (i.e, inpt ot outpatient treatment programs)?: Yes Have you ever Experienced Blackouts?: Yes Have you ever Combined Alcohol with other Downers within the last 90 days?: No Have you ever Combined Alcohol with any other Substance of Abuse during the last 90 days?: Yes Positive Blood Alcohol level on Presentation? [PCS.BAL]: No Evidence of Increased Autonomic Activity (i.e. HR>120, tremor, sweating, agitation, nausea)?: No Result: 7 Time Spent Time spent with Patient: >75 minutes Time was spent: preparing to see the patient(eg.review tests), obtaining and/or reviewing separately otained hiistory, ordering medications,tests, procedures, referring, communicating with other health healthcare management consultant, indepentently interpreting results, counseling the patient and care coordination
[2023-09-08 23:28] LABS: ESR 36 mm/hr (0-15)
[2023-09-08 23:35] LABS: C-Reactive Protein 2.17 mg/dL (<or=0.5)
[2023-09-09] VITALS (18 sets, daily range): BP systolic 88–126; BP diastolic 58–83; PULSE 50–71; RESP 11–28; TEMP 35.5–36.9; O2SAT 96–99; BMI 21.4
[2023-09-09] MEDS: Ketorolac 15 MG/ML VIAL IVP ×4 (00:02→23:54)
[2023-09-09 00:27] LABS: *AMPHETAMINES SCREEN URINE Negative (Negative); *BARBITURATES SCREEN URINE Negative (Negative); *BENZODIAZEPINES SCREEN URINE Negative (Negative); Cannabinoids THC Positive (Negative); Cocaine Screen,Urine Positive (Negative); METHADONE URINE SCREEN Negative (Negative); OPIATES URINE SCREEN Negative (Negative)
[2023-09-09 00:28] LABS: Tricyclic Antidepressants Negative (Negative)
[2023-09-09] MEDS: Normal Saline 1,000 ML 125 ML IV (01:36)
[2023-09-09 03:33] LABS: Abs Immature Grans 0.05 10^3/uL (0.0-0.06); Absolute Basophil Count 0.06 10^3/uL (0.0-0.2); Absolute Eosinophil Count 0.11 10^3/uL (0.0-0.7); Absolute Lymphocyte Count 2.66 10^3/uL (1.2-3.4); Absolute Monocyte Count 1.46 10^3/uL (0.1-0.8); Absolute Neutrophil Count 11.89 10^3/uL (1.2-6.7); Basophils % 0.4; Eosinophils % 0.7; HCT 38.7 % (40.0-50.0); INR 1.1 (0.9-1.1); Immature Grans % 0.3; Lymphocytes % 16.4; MCH 31.3 pg (27.0-33.0); MCHC 33.6 % (32.0-36.0); MCV 93 fL (80-95); Neutrophils % 73.2; Platelet Count 318 10^3/uL (130-400); Prothrombin Time 11.3 sec (9.1-11.1); RBC 4.15 10^6/uL (4.36-5.78); RDW 14.4 % (11.8-14.1); RDW-SD 49.5 fL; WBC 16.24 10^3/uL (4.4-10.8)
[2023-09-09 03:42] LABS: ALT 796 U/L (16-63); AST 425 U/L (15-37); Albumin 2.5 g/dL (3.4-5.0); Alkaline Phosphatase 221 U/L (46-116); BUN 8 mg/dL (7-18); Bilirubin, Total 0.6 mg/dL (0.2-1.0); CREATININE 0.9 mg/dL (0.70-1.30); Calcium 8.2 mg/dL (8.5-10.1); Chloride 105 mmol/L (98-107); Estimated GFR 110.73 (mL/min/1.73m2); Glucose 128 mg/dL (74-106); Magnesium 2.2 mg/dL (1.8-2.4); Potassium 3.7 mmol/L (3.5-5.1); Sodium 140 mmol/L (136-145); Total Protein 6.3 g/dL (6.4-8.2)
[2023-09-09] MEDS: VANCOMYCIN 750 MG in Normal Saline 250 ML 166.667 MG IVPB (04:12)
[2023-09-09 04:23] LABS: Vancomycin, Random 6.2 ug/mL
[2023-09-09] MEDS: Normal Saline Flush 10 ML SYR IVP ×5 (07:35→23:54)
[2023-09-09] MEDS: Acetaminophen 325 MG TAB PO ×3 (07:35→23:55)
--- NOTE | 2023-09-09 08:00 | DI.US_ITS ---
Exam(s) US ABDOMEN LIMITED EXAM: US ABDOMEN LIMITED CLINICAL HISTORY: Chronic elevated LFTs with IV drug use, alcohol us TECHNIQUE: Ultrasound abdomen performed using standard protocol. COMPARISON: CT CT ABDOMEN PELVIS W from 11/20/2022 US US UPPER EXTREMITY VENOUS RT from 11/25/2022 FINDINGS: There is no ascites evident. LIVER: There are no hepatic lesions evident nor dilatation of intrahepatic ducts. GALLBLADDER/BILIARY: There are no gallstones but the gallbladder wall appears uniformly thickened, me asuring approximately 3 mm thickness. This may be somewhat exaggerated by the gallbladder being some what contracted. The common hepatic duct was less than optimally visualized but not grossly dilated PANCREAS: Not well seen due to overlying bowel gas in the midline. RIGHT KIDNEY:No obvious abnormality on submitted images IMPRESSION: 1. Mild uniform thickening of the gallbladder wall which may be exaggerated by the gallbladder being contracted. No shadowing gallstones evident. No obvious dilatation of the biliary tree. Pancreas was not able to be visualized due to overlying bowel gas. 2. No other significant ultrasound findings in the right upper quadrant. 3. There is no ascites. DATA REPOSITORY:
--- NOTE | 2023-09-09 09:27 | W.ORTHOCONSU ---
Date of service: 09/09/23 Time of Service: 09:00 Assessment and Plan Assessment and plan (1) Abscess of right forearm: Status: Acute Assessment and plan: 38-year-old male with complicated right proximal ulnar forearm abscess and surrounding cellulitis Challenging patient. Actively withdrawing from numerous illicit substances. Tells me he is coming down from a [place] having used everything including meth, crack cocaine, and fentanyl. He is overdue for his Suboxone and unhappy about it. He is agitated and uncomfortable at times and at other times conversant and okay. He was walking around the hallways of the hospital when I found him and we conducted history and exam back in his room. Medical history per the patient includes pancreatitis. He states he does not drink alcohol because of this problem. He relates he has no where safe to go as far as at home. Rehab has been unsuccessful in the past. This right forearm abscess started about 2 weeks ago. He ignored it until became so severely painful last night requiring him to come to the emergency room. He states he has had abscesses before including on the contralateral forearm that went away on its own or with oral antibiotics. He has numerous wounds and abrasions about bilateral forearms and hands from the past few weeks of drug abuse is that are painful. Denies any problems elsewhere in the body. Right forearm shows moderately large area of edema and erythema. Small isabell site about the 5 x 7 area of enlargement from the abscess with mild serosanguinous drainage when soiled dressing was removed. Redressed with sterile gauze and wrapped with Bolivar bandage. Intact motor and sensory distally with encouragement and wrist fingers and thumb. Sensory intact throughout to light touch. Denies distal paresthesias or numbness, but difficult to test around the abscess area due to pain. Radial pulse readily palpable. Difficult to exam due to hypersensitivity to pain and drug withdrawal. No true distress, not compartment syndrome, no septic joints, not necrotizing fasciitis. Reports poorly able to tolerate emergency room lancing of abscess although it did greatly reduce his pain which is 1000% better today. CT scan reviewed showing the multiloculated large forearm abscess, which appears to still be somewhat present and unlikely to have been adequately treated although greatly improved with the ER procedure. Reviewed need for formal surgical I&D today in the operating room. Postoperative IV and then oral antibiotics. Monitor for withdrawal and treat appropriately. Will discuss with admitting hospitalist. Decision to proceed with surgery today right forearm abscess irrigation and debridement. Reviewed leaving small opening and performing daily dressing changes/packing for a period of time afterwards. The risks, benefits, and alternatives were thoroughly discussed. Patient was counseled regarding pain management, expected postoperative course, and recovery timeline. All questions were answered. Informed assent was obtained, and paperwork will be completed in the OR holding area. Patient agrees and understands the treatment plan. PFSH All Active Problems (Updated 09/09/23 @ 09:28 by Frank Lopez MD) Abscess of right forearm (Acute) Hypocalcemia (Acute) Hypokalemia (Acute) Abscess of right arm (Acute) Acute thrombosis of right basilic vein (Acute) Cellulitis of arm, right (Acute) Fever (Acute) Acute Lyme disease (Acute) Duodenal ulcer disease (Acute) Alcohol withdrawal (Acute) Chronic calcific pancreatitis (Acute) Hepatic dysfunction (Acute) Abdominal pain (Acute) Nausea & vomiting (Acute) Fatty liver (Acute) IV drug user (Chronic) Alcohol abuse (Chronic) Transaminitis (Chronic) Gallbladder polyp (Acute) GI bleeding (Chronic) Dilated pancreatic duct (Acute) Opioid abuse (Chronic) Discharge planning issues (Acute) Thrombocytopenia (Chronic) Portal hypertensive gastropathy (Acute) Nicotine dependence (Acute) Unsheltered homelessness (Acute) Homelessness (Acute) Agitation (Acute) COVID-19 (Acute) Alcohol withdrawal (Acute) Acute pancreatitis (Acute) Duodenal mass (Acute) Alcoholism (Acute) Infected abrasion of skin of right ankle (Acute) Infected abrasion of skin of left ankle (Acute) Agitation (Acute) Polysubstance use disorder (Acute) Contusion of right knee (Acute) Lyme disease (Acute) Abrasion (Acute) Trauma (Acute) Inflammatory arthritis (Acute) Alcoholic ketoacidosis (Acute) Vomiting (Acute) Abdominal pain (Acute) Alcoholic ketoacidosis (Acute) Abdominal pain with vomiting (Acute) Depression with anxiety (Acute) Family history of schizophrenia (Chronic) Father Migraine with aura (Acute) Homeless (Acute) Alcoholic fatty liver (Acute) Severe depression (Chronic) Alcohol abuse (Chronic) Heroin abuse (Chronic) Elevated transaminase level (Acute) Chronic back pain (Chronic) Anxiety, generalized (Chronic) Medical History (Updated 09/09/23 @ 09:28 by Frank Lopez MD) Duodenitis DKA (diabetic ketoacidosis) Pancreatitis History of alcohol abuse Depression Opiate addiction Surgical History No significant past surgical history No significant past surgical history Family History Mother Heart disease Asthma Father No problems noted. Sister Asthma Sister No problems noted. Brother No problems noted. Grandfather Essential hypertension Heart disease Asthma Grandfather Essential hypertension Heart disease Grandmother No problems noted. Grandmother No problems noted. Son No problems noted. Daughter No problems noted. Daughter Asthma Mother Heart disease Diabetes Father Heart disease Stroke Hypertension Self No problems noted. Sister Diabetes Hypertension Maternal Grandmother Cancer type Social History Smoking/Tobacco Use Status: Current every day Tobacco Type: cigarettes Smoking packs per day: 1 Smoking cigarettes per day: 20.0 Years smoked: 30 Smoking pack-years: 30.00 Counseling given: provider counseling and support medications Smoking risk assessment performed?: Yes Alcohol Intake: current Alcohol Intake frequency: 0-2 drinks per day Alcohol type: beer and hard liquor Counseling given: Yes Counseling provided: provider counseling and other Drug use: Never Substance use type: marijuana, heroin, opiates, IV drugs, methamphetamine and other Details: fentanyl Counseling given: Yes Counseling provided: provider counseling Details: on suboxone, weaning Housing: homeless Number of Children: 3 Other: Lives alone in a tent in the [facility] What type of physical activity do you participate in: none Drive intox or ride w/intox feedmobile driver: No Working smoke detector in home: Yes Carbon monox detector in home: Yes Do you feel safe at home: Yes Do you feel safe in your relationship?: Yes Results Last Vital Signs Temp 98.4 F 09/09/23 04:14 Pulse 61 09/09/23 04:14 Resp 16 09/09/23 04:14 BP 116/70 09/09/23 04:14 Pulse Ox 97 09/09/23 04:14 Labs 09/09/23 03:16 09/09/23 03:16 Labs: Laboratory Results - last 24 hr 09/08/23 09/08/23 09/09/23 17:32 21:28 00:05 WBC 16.26 H RBC 4.15 L Hgb 13.0 L Hct 38.8 L MCV 94 MCH 31.3 MCHC 33.5 RDW 14.1 Plt Count 319 MPV 9.6 Immature Gran % 0.5 Neutrophils % 71.7 Lymphocytes % 16.4 Monocytes % 10.8 Eosinophils % 0.3 Basophils % 0.3 Nucleated RBC % 0.0 Absolute Neutrophils 11.66 H Absolute Lymphocytes 2.67 Absolute Monocytes 1.76 H Absolute Eosinophils 0.05 Absolute Basophils 0.05 RBC Morphology Normal ESR 36 H PT INR Sodium 139 139 Potassium 3.4 L 3.6 Chloride 103 103 Carbon Dioxide 25.3 25.2 Anion Gap 10.7 10.8 BUN 6 L 4 L Creatinine 0.7 0.7 Est GFR (CKD-EPI 2020) 119.46 119.46 Glucose 118 H 89 Calcium 8.3 L 7.9 L Magnesium Total Bilirubin 0.6 AST 420 H ALT 835 H Alkaline Phosphatase 216 H C-Reactive Protein 2.17 H Total Protein 6.4 Albumin 2.6 L Random Vancomycin Urine Opiates Screen Negative Urine Methadone Screen Negative Ur Barbiturates Screen Negative Ur Tricyclics Screen Negative Ur Amphetamines Screen Negative U Benzodiazepines Scrn Negative Urine Cocaine Screen Positive A Ur THC Screen Positive A Ethyl Alcohol < 3.0 09/09/23 03:16 WBC 16.24 H RBC 4.15 L Hgb 13.0 L Hct 38.7 L MCV 93 MCH 31.3 MCHC 33.6 RDW 14.4 H Plt Count 318 MPV 10.0 Immature Gran % 0.3 Neutrophils % 73.2 Lymphocytes % 16.4 Monocytes % 9.0 Eosinophils % 0.7 Basophils % 0.4 Nucleated RBC % 0.0 Absolute Neutrophils 11.89 H Absolute Lymphocytes 2.66 Absolute Monocytes 1.46 H Absolute Eosinophils 0.11 Absolute Basophils 0.06 RBC Morphology ESR PT 11.3 H INR 1.1 Sodium 140 Potassium 3.7 Chloride 105 Carbon Dioxide 27.0 Anion Gap 8.0 BUN 8 Creatinine 0.9 Est GFR (CKD-EPI 2020) 110.73 Glucose 128 H Calcium 8.2 L Magnesium 2.2 Total Bilirubin 0.6 AST 425 H ALT 796 H Alkaline Phosphatase 221 H C-Reactive Protein Total Protein 6.3 L Albumin 2.5 L Random Vancomycin 6.2 Urine Opiates Screen Urine Methadone Screen Ur Barbiturates Screen Ur Tricyclics Screen Ur Amphetamines Screen U Benzodiazepines Scrn Urine Cocaine Screen Ur THC Screen Ethyl Alcohol
--- NOTE | 2023-09-09 10:08 | ROE_ITS ---
Date of service: 09/09/23 Time of Service: 11:40 Operative Note Operative Note DATE OF PROCEDURE: 09/09/23 PRE-OP DIAGNOSIS: Right forearm complex abscess POST-OP DIAGNOSIS: same PROCEDURE: Right forearm abscess irrigation and debridement, CPT #42001 SURGEON: Frank Lopez ANESTHESIA TYPE: Local By Surgeon and Primary Nerve Block Refer to Anesthesia Record ESTIMATED BLOOD LOSS: 5 Patient was transported to: PACU Patient's condition: stable Indications: Please see complete medical record for details. Procedure Description: In the operating room, regional anesthesia was confirmed. The patient was positioned supine on the operating room table. All bony prominences were well- padded. The right upper extremity was prepped and draped in the usual sterile fashion. The correct patient, procedure, and side of the procedure were all verified prior to incision. A field block widely about the forearm abscess was done using 30 cc of 0.25% bupivacaine containing epinephrine. The small stab site from the emergency room lancing was opened with Metzenbaum scissors expressing copious purulence and serosanguineous fluid. 2 sets of both aerobic and anaerobic cultures were taken from deep in the abscess site. 2 g cefazolin was administered. The stab site was lengthened distally a couple centimeters to allow for digital and instrument passage into the abscess to break up the loculations while copiously irrigating with gravity cystoscopy tubing. Loculations broken up with a [place], finger, and spreading with scissors. The pocket was delineated about the expected margins. Significant infection material was removed. After 3 L irrigation, dirty instruments were passed off, new sterile sheet placed below, gloves were changed, and the abscess wound was explored again. Expression and exploration did not reveal any other pockets of infection. An additional 3 L was vigorously irrigated deeply around all aspects of the abscess. The effluent was then clear. Hemostasis was appropriate. Distally, the extension was closed using 3- 0 Monocryl buried interrupted. Proximally about 2 cm was left open including the ER stab site, and the abscess was packed with iodoform leaving a long tail over the incision, covered with dry 4 x 4 gauze, ABD, and the proximal forearm wrapped in Kerlix secured with tape. The patient tolerated the procedure without complication.
[2023-09-09] MEDS: Buprenorphine/Naloxone 4 mg/1 mg FILM 1 EACH SL (10:14)
[2023-09-09] MEDS: Lactated Ringers 1,000 ML 30 ML IV (10:40)
--- NOTE | 2023-09-09 11:14 | ANES.PREOP_ITS ---
General Info Date of Service Date Performed: 09/09/23 Height: 5 ft 6 in Weight: 60.3 kg Body Mass Index (BMI): 21.4 Surgical Procedure: Operation Date: 09/09/23 11:10 Proposed Procedure Side Surgeon p I&D Forearm Abscess Frank Lopez MD Meds Allergies and Home Medications Allergies Allergy/AdvReac Type Severity Reaction Status Date / Time No Known Allergies Allergy Verified 09/08/23 16:51 Home Medication Medication Instructions Recorded buprenorphine 4 mg-naloxone 1 mg 1 film sublingual DAILY 09/08/23 sublingual film (Suboxone) Current Visit Medications: Current Medications Generic Name Dose Route Start Last Admin Trade Name Freq PRN Reason Stop Dose Admin Acetaminophen 325 - 650 mg 09/08/23 22:59 09/09/23 07:35 Acetaminophen 325 Mg Tab PO 650 mg Q4H PRN PRN Administration Al Hydrox/Mg Hydrox/Simethicone 30 ml 09/08/23 22:59 Mylanta Suspension 30 Ml Cup PO Q2H PRN PRN Buprenorphine/Naloxone 1 each 09/09/23 10:00 09/09/23 10:14 Buprenorphine/Naloxone 4 Mg/1 Mg Film SL 1 each DAILY BLAS Administration Docusate Sodium 100 mg 09/08/23 22:59 Docusate Sodium 100 Mg Cap PO TID PRN PRN Sodium Chloride 1,000 mls @ 125 mls/hr 09/08/23 23:00 09/09/23 10:53 Saline 1000ml Bag IV Infused INFUSION [facility] Infusion Ceftriaxone Sodium/Dextrose 2 gm in 50 mls @ 100 mls/hr 09/09/23 18:00 Rocephin IVPB Q24H [facility] Vancomycin/PEG/NADA/Lysine/Water 750 mg in 150 mls @ 100 mls/hr 09/09/23 12:00 Vancocin Injection IV Q8H [facility] IV Miscellaneous Supplies 1 each 09/08/23 23:00 Iv Access IV DIRECTED [facility] Ketorolac Tromethamine 15 mg 09/09/23 01:06 09/09/23 07:35 Ketorolac 15 Mg/Ml Vial IVP 09/14/23 01:05 15 mg Q6H PRN PRN Administration Magnesium Hydroxide 30 ml 09/08/23 22:59 Milk Of Magnesia 30 Ml Cup PO DAILY PRN PRN Polyethylene Glycol 17 gm 09/08/23 22:59 Polyethylene Glycol 3350 17 Gm Packet PO DAILY PRN PRN Constipation Sodium Chloride 0 ml 09/08/23 22:59 Normal Saline Flush 10 Ml Syr IVP PRN PRN Sodium Chloride 0 ml 09/09/23 08:30 09/09/23 07:35 Normal Saline Flush 10 Ml Syr IVP 30 ml BID BLAS Administration Sodium Chloride 0 ml 09/08/23 22:59 Normal Saline 10 Ml Vial IJ DIRECTED PRN PFSH Active Problems Active Problems: Problem Status Onset Code Abscess of right forearm L02.413 Hypocalcemia E83.51 Hypokalemia E87.6 Abscess of right arm L02.413 Acute thrombosis of right basilic vein I82.611 Cellulitis of arm, right L03.113 Fever R50.9 Acute Lyme disease A69.20 Duodenal ulcer disease K26.9 Alcohol withdrawal F10.939 Chronic calcific pancreatitis K86.1 Hepatic dysfunction K76.9 Abdominal pain R10.9 Nausea & vomiting R11.2 Fatty liver K76.0 IV drug user F19.90 Alcohol abuse F10.10 Transaminitis R74.01 Gallbladder polyp K82.4 GI bleeding K92.2 Dilated pancreatic duct K86.89 Opioid abuse F11.10 Discharge planning issues Z02.9 Thrombocytopenia D69.6 Portal hypertensive gastropathy K76.6, K31.89 Nicotine dependence F17.200 Unsheltered homelessness Z59.02 Homelessness Z59.00 Agitation R45.1 COVID-19 U07.1 Alcohol withdrawal F10.939 Acute pancreatitis K85.90 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 Alcoholism F10.20 Infected abrasion of skin of right ankle S90.511A, L08.9 Infected abrasion of skin of left ankle S90.512A, L08.9 Agitation R45.1 Polysubstance use disorder F19.90 Contusion of right knee S80.01XA Lyme disease A69.20 Abrasion T14.8XXA Trauma T14.90XA Inflammatory arthritis M19.90 Alcoholic ketoacidosis E87.2 Vomiting R11.10 Abdominal pain R10.9 Alcoholic ketoacidosis E87.2 Abdominal pain with vomiting R10.9, R11.10 Depression with anxiety F41.8 Family history of schizophrenia Z81.8 Migraine with aura G43.109 Homeless Z59.0 Alcoholic fatty liver K70.0 Severe depression F32.2 Alcohol abuse F10.10 Heroin abuse F11.10 Elevated transaminase level R74.0 Chronic back pain M54.9, G89.29 Anxiety, generalized F41.1 Medical History Medical History Duodenitis DKA (diabetic ketoacidosis) Pancreatitis History of alcohol abuse Depression Opiate addiction Surgical History Surgical History No significant past surgical history No significant past surgical history Tobacco Smoking/Tobacco Use Status: Current every day Tobacco Type: cigarettes Smoking packs per day: 1 Smoking cigarettes per day: 20.0 Years smoked: 30 Smoking pack- years: 30.00 Counseling given: provider counseling and support medications Alcohol Alcohol Intake: current Alcohol intake frequency: 0-2 drinks per day Alcohol type: beer and hard liquor Counseling provided: provider counseling and other Substance Use Substance use: Never Substance use type: marijuana, heroin, opiates, IV drugs, methamphetamine and other Details: fentanyl Counseling provided: provider counseling Details: on suboxone, weaning Vital Signs and Lab Results Vital Signs Most Recent Vital Signs in EMR: Most Recent Vital Signs Temp Pulse Resp BP Pulse Ox 36.8 C 60 17 121/73 99 09/09/23 10:46 09/09/23 10:46 09/09/23 10:46 09/09/23 10:46 09/09/23 10:46 Lab Results 09/09/23 03:16 09/09/23 03:16 Blood Type / Crossmatch: 2 No Data to Display Complete Blood Count: 2 White Blood Count 16.24 10^3/uL (4.4-10.8) H 09/09/23 03:16 Red Blood Count 4.15 10^6/uL (4.36-5.78) L 09/09/23 03:16 Hemoglobin 13.0 g/dL (13.5-17.5) L 09/09/23 03:16 Hematocrit 38.7 % (40.0-50.0) L 09/09/23 03:16 Platelet Count 318 10^3/uL (130-400) 09/09/23 03:16 Complete Metabolic Panel: 2 Sodium 140 mmol/L (136-145) 09/09/23 03:16 Potassium 3.7 mmol/L (3.5-5.1) 09/09/23 03:16 Chloride 105 mmol/L (98-107) 09/09/23 03:16 Carbon Dioxide 27.0 mmol/L (21.0-32.0) 09/09/23 03:16 BUN 8 mg/dL (7-18) 09/09/23 03:16 Creatinine 0.9 mg/dL (0.70-1.30) 09/09/23 03:16 Est GFR (CKD-EPI 2020) 110.73 (mL/min/1.73m2) 09/09/23 03:16 Magnesium 2.2 mg/dL (1.8-2.4) 09/09/23 03:16 Calcium 8.2 mg/dL (8.5-10.1) L 09/09/23 03:16 Albumin 2.5 g/dL (3.4-5.0) L 09/09/23 03:16 Glucose 128 mg/dL (74-106) H 09/09/23 03:16 C-Reactive Protein 2.17 mg/dL (<or=0.5) H 09/08/23 17:32 Liver Function Panel: 2 Alanine Aminotransferase (ALT/SGPT) 796 U/L (16-63) H 09/09/23 03:16 Aspartate Amino Transf (AST/SGOT) 425 U/L (15-37) H 09/09/23 03 :16 Coagulation Panel: 2 INR International Normalized Ratio 1.1 (0.9-1.1) 09/09/23 03:1 6 Prothrombin Time 11.3 sec (9.1-11.1) H 09/09/23 03:16 Cardiac Panel: 2 No Data to Display Arterial Blood Gas: 2 No Data to Display Venous Blood Gas: 2 No Data to Display Pancreas Panel: 2 No Data to Display Thyroid Panel: 2 No Data to Display Infectious Disease: 2 No Data to Display Blood Cultures: 2 No Data to Display Toxicology Panel: 2 Ethyl Alcohol Level < 3.0 mg/dL (<10) 09/08/23 21:28 Urine Amphetamines Screen Negative (Negative) 09/09/23 00:05 Urine Benzodiazepines Screen Negative (Negative) 09/09/23 00:0 5 Urine Barbiturates Screen Negative (Negative) 09/09/23 00:05 Urine Cocaine Screen Positive (Negative) A 09/09/23 00:05 Urine Methadone Screen Negative (Negative) 09/09/23 00:05 Urine Opiates Screen Negative (Negative) 09/09/23 00:05 Ur Tricyclic Antidepressants Screen Negative (Negative) 00:05 Ur Tetrahydrocannabinol (THC) Scrn Positive (Negative) A 09/08 00:05 Imaging and Studies Imaging and Studies Study information below may be from another EMR and interpreted by another provider. Please see original notes in EMR for more complete details. EKG Summary: PATIENT NAME: Nino Madrid #: [id number] ORDERING PROVIDER: Lucius Randolph NPACCOUNT #: [id number] PRIMARY CARE PROVIDER: CEDRIC DATE/TIME OF SERVICE: 11/08/22837 : 1985PERFORMING LOCATION: ICU APPROVED REPORT Exam: Resting ECG Reason for Exam: nausea vomitting Patient Location: E HR:69 bpm ECG Measurements Heart Rate 69 AXIS AL 139 P 57 QRSd 85 QRS 82 QT 421 T73 QTc 451 Conclusion Sinus rhythm...normal P axis, V-rate 60- 99 Narrow complex normal sinus rhythm at a rate of 69. Normal axis. Intervals within normal limits. Concave upsloping ST segments in V2 and V3. T wave inversion in aVL. No ST segment depressions. No acute injury pattern. No prior for comparison. Anesthesia Assessment and Plan Anesthesia History Personal History: No History of Anesthesia Complications Family History: No Family History of Anesthesia Complications Exercise Tolerance Exercise Tolerance: Metabolic Equivalents>4 Pertinent Negatives Pertinent Negatives: No Symptoms of GERD, No Major Cardiovascular Symptoms or Complaints, No Major Pulmonary Symptoms or Complaints and No History of CVA/TIA Cardiac & Pulmonary Exam Cardiac Exam: Normal S1/S2 Heart Sounds Pulmonary Exam: Clear Bilateral Breath Sounds Implantable Cardiac Device Does patient have a Pacemaker or an ICD?: No Airway Exam Known Difficult Airway: No Mallampati Class: 2 Mouth Opening: Normal (> 3cm) Thyromental Distance: Greater than 3 cm Neck Range of Motion: Full ROM Neck Circumference: Normal Teeth Condition: Generalized Poor Dentition, Loose or Chipped (loose right upper canine), Dental Caries and Advised tooth loss possible given current condition (indicate tooth) ASA Classification ASA Score: ASA 3 Emergency Case?: Yes NPO Status NPO Status: NPO Clears >2 hours, Solids >8 hours Anesthesia Plan Resuscitation Status: Full Code Anesthesia Technique: Primary Nerve Block Airway Planned: Natural Airway Pain Management: Surgeon and patient request nerve block Monitors Used: Standard Monitors Preoperative Comments:: urgent case. pt counselled on plan for primary nerve block for procedure due to pt hx IV drug use and concerns regarding anesthesia; pt verbalized understanding
[2023-09-09] MEDS: ceFAZolin 2 GM/50 ML BAG 100 GM (12:03)
--- NOTE | 2023-09-09 12:23 | W.ANESNERVE ---
Nerve Block Single Injection Procedure Date and Time Date Performed: 09/09/23 Procedure Start: 10:26 Location Where Procedure Performed Procedure Location: PACU Reason Performed: Other (surgical block ) Requesting Provider: Frank Lopez Timeout Performed Timeout Performed: Yes Monitoring Used ECG, Blood Pressure, SpO2 and ETCO2 Sterility Sterility: Hand Hygiene, Surgical Cap, Surgical Mask, Sterile Gloves and Chlorhexidine Sedation Given During Procedure Sedation Given (Indicate Dose Given): Versed IV Dose:: 2mg Patient Mental Status Patient Mental Status: Sedate with meaningful communication Nerve Block 1st Nerve Block: Laterality: Right Block Type: Axillary Ultrasound Image Saved?: Yes Needle / Catheter Used: 100mm SonoPlex II Local Anesthetic Bolus (Indicate Dose Given): Lidocaine used for local infiltration of skin, Injected in 3-5ml increments after negative blood aspiration, Bupivacaine 0.5% Dose:: 10mL and Lidocaine 2% Dose:: 10mL Additives (Indicate Dose Given): None Ultrasound: Sterile probe cover and gel used Nerve Stimulator: Supplement to Ultrasound use Paresthesia: None Procedure Tolerated: No Complications and Patient tolerated well Procedure Outcome: Successful Performed By: Yesi Quiñonez Supervised By: Fidel Rothman
--- NOTE | 2023-09-09 12:53 | INITIAL_ITS ---
Date of service: 09/09/23 Time of Service: 12:53 Care Management Initial Assmt Initial Assessment REASON FOR HOSPITALIZATION:: Right forearm abscess, IV substance use PREVIOUS FUNCTIONAL STATUS/SOCIAL/FAMILY SUPPORTS:: Ayaan is currently experiencing pervasive homelessness and MALIK. He is actively withdrawing from numerous illicit substances. Reports coming down from a hussein, having used everything including meth, crack cocaine, and fentanyl. He is overdue for his Suboxone and unhappy about it. He is agitated and uncomfortable at times and at other times conversant and okay. He has ambulated around the hallways of the hospital during the morning; security monitoring related to previous aggression and hiding needles. CURRENT FUNCTIONAL STATUS:: Ayaan went to the OR today for right forearm abscess irrigation and debridement. Per MD, anticipate need for daily dressing changes/packing. ADVANCE DIRECTIVES:: None on file. Has patient been provided with info about the portal/API?: Yes Did the patient sign up for the portal?: No CODE STATUS:: Full Code INSURANCE COVERAGE / FINANCIAL ISSUES:: Medicaid PRIMARY CARE PHYSICIAN:: Joel Martinez POTENTIAL DISCHARGE NEEDS:: SDRI support; review services and complete referrals. PATIENT/FAMILY EDUCATION NEEDS:: Review discharge recommendations, discuss self care needs upon discharge Ask Me Three. ANTICIPATED BARRIERS TO DISCHARGE:: Possible nursing home IV ABX in patient with IV MALIK. TRANSPORTATION:: Dependent on disposition. PLAN:: Ayaan will be brought to the OR for abscess drainage; awaiting cultures and sensitivities as well as treatment modality recommendations around possible nursing home IV ABX-duration and frequency. CM following. [facility] All Active Problems Abscess of right forearm (Acute) Hypocalcemia (Acute) Hypokalemia (Acute) Abscess of right arm (Acute) Acute thrombosis of right basilic vein (Acute) Cellulitis of arm, right (Acute) Fever (Acute) Acute Lyme disease (Acute) Duodenal ulcer disease (Acute) Alcohol withdrawal (Acute) Chronic calcific pancreatitis (Acute) Hepatic dysfunction (Acute) Abdominal pain (Acute) Nausea & vomiting (Acute) Fatty liver (Acute) IV drug user (Chronic) Alcohol abuse (Chronic) Transaminitis (Chronic) Gallbladder polyp (Acute) GI bleeding (Chronic) Dilated pancreatic duct (Acute) Opioid abuse (Chronic) Discharge planning issues (Acute) Thrombocytopenia (Chronic) Portal hypertensive gastropathy (Acute) Nicotine dependence (Acute) Unsheltered homelessness (Acute) Homelessness (Acute) Agitation (Acute) COVID-19 (Acute) Alcohol withdrawal (Acute) Acute pancreatitis (Acute) Duodenal mass (Acute) Alcoholism (Acute) Infected abrasion of skin of right ankle (Acute) Infected abrasion of skin of left ankle (Acute) Agitation (Acute) Polysubstance use disorder (Acute) Contusion of right knee (Acute) Lyme disease (Acute) Abrasion (Acute) Trauma (Acute) Inflammatory arthritis (Acute) Alcoholic ketoacidosis (Acute) Vomiting (Acute) Abdominal pain (Acute) Alcoholic ketoacidosis (Acute) Abdominal pain with vomiting (Acute) Depression with anxiety (Acute) Family history of schizophrenia (Chronic) Father Migraine with aura (Acute) Homeless (Acute) Alcoholic fatty liver (Acute) Severe depression (Chronic) Alcohol abuse (Chronic) Heroin abuse (Chronic) Elevated transaminase level (Acute) Chronic back pain (Chronic) Anxiety, generalized (Chronic) Medical History Duodenitis DKA (diabetic ketoacidosis) Pancreatitis History of alcohol abuse Depression Opiate addiction Surgical History No significant past surgical history No significant past surgical history Family History Mother Heart disease Asthma Father No problems noted. Sister Asthma Sister No problems noted. Brother No problems noted. Grandfather Essential hypertension Heart disease Asthma Grandfather Essential hypertension Heart disease Grandmother No problems noted. Grandmother No problems noted. Son No problems noted. Daughter No problems noted. Daughter Asthma Mother Heart disease Diabetes Father Heart disease Stroke Hypertension Self No problems noted. Sister Diabetes Hypertension Maternal Grandmother Cancer type Social History Smoking/Tobacco Use Status: Current every day Tobacco Type: cigarettes Smoking packs per day: 1 Smoking cigarettes per day: 20.0 Years smoked: 30 Smoking pack- years: 30.00 Counseling given: provider counseling and support medications Smoking risk assessment performed?: Yes Alcohol Intake: current Alcohol Intake frequency: 0-2 drinks per day Alcohol type: beer and hard liquor Counseling given: Yes Counseling provided: provider counseling and other Drug use: Never Substance use type: marijuana, heroin, opiates, IV drugs, methamphetamine and other Details: fentanyl Counseling given: Yes Counseling provided: provider counseling Details: on suboxone, weaning Housing: homeless Number of Children: 3 Other: Lives alone in a tent [facility] What type of physical activity do you participate in: none Drive intox or ride w/intox canal driver: No Working smoke detector in home: Yes Carbon monox detector in home: Yes Do you feel safe at home: Yes Do you feel safe in your relationship?: Yes SDOH(Care Management) Screening Will the Patient Participate in the Screening?: Yes Do you worry about having a steady place to live?: yes Problems where you live: other In the past 12 months, have you had to go without electric, gas, oil or water in your home?: yes Have you or anyone in your house had to go without enough food to eat?: yes Has lack of transportation kept you from medical appointments or from doing things needed for daily living?: yes Has anyone in your support network made you feel unsafe for any reason?: no Social Determinants of Health Comments(SDOH Details): homeless Health Related Social Needs Health related social needs: housing instability, housed, with risk of homel essness(Z59.811), food insecurity(Z59.41), transportation insecurity(Z59.82) and material hardship(utilities)(Z59.87)
--- NOTE | 2023-09-09 13:08 | W.PM.PROGNOT ---
Date of Service Date of service: 09/09/23 Time of Service: 13:08 Assessment and Plan Assessment and plan (1) Abscess of right arm: Status: Acute Assessment and plan: surgically drained in the OR today block by anesthesia for pain control continue IV antibiotics, anticipate downstep to orals and dc home in 24 hours. cultures pending (2) Hypokalemia: Status: Acute Assessment and plan: Most likely secondary to poor nutrition chronically with patient homeless. (3) Hypocalcemia: Status: Acute Assessment and plan: With chronic malnutrition likely in this homeless patient. Monitor lab daily and supplement if needed. (4) IV drug user: Status: Chronic Assessment and plan: Patient has had recurrent infections with IV drug use though denying recent use in the last 3 months. His lesions over his left hand appear to be multiple as with sub-cutaneous popping which he denies. Blood cultures and continue IV vancomycin with ceftriaxone. If blood cultures positive, echocardiogram looking for vegetations on the tricuspid valve. Orthopedic surgical consultation for further drainage to be removed in the. (5) Opioid abuse: Status: Chronic Assessment and plan: Chronically on Suboxone Urine drug screen is positive for THC and cocaine with suspicion for continued recent use. (6) Transaminitis: Status: Chronic Assessment and plan: Will follow-up ultrasound of the gallbladder and liver with limited abdominal ultrasound in the morning. Repeat Hepatitis C screening and HIV screening. Subjective Subjective Patient reports: no new complaints and afebrile Exam Narrative Exam Narrative: Chronically ill-appearing older than stated age disheveled thin male. Is in no acute distress vital signs are stable. Head is atraumatic he is sitting up on the side of the bed hostile mood and affect. He has a bulky dressing to his right forearm. And slightly swollen no erythema appreciated proximal to the dressing. Skin with lesions consistent with picking. Moving all his extremities. He is awake alert and oriented to person place and situation. Objective Last Vital Signs Temp 36.0 C L 09/09/23 13:01 Pulse 50 L 09/09/23 13:01 Resp 16 09/09/23 13:01 BP 109/68 09/09/23 13:01 Pulse Ox 99 09/09/23 13:01 Laboratory Results - last 24 hr 09/08/23 09/08/23 09/09/23 17:32 21:28 00:05 WBC 16.26 H RBC 4.15 L Hgb 13.0 L Hct 38.8 L MCV 94 MCH 31.3 MCHC 33.5 RDW 14.1 Plt Count 319 MPV 9.6 Immature Gran % 0.5 Neutrophils % 71.7 Lymphocytes % 16.4 Monocytes % 10.8 Eosinophils % 0.3 Basophils % 0.3 Nucleated RBC % 0.0 Absolute Neutrophils 11.66 H Absolute Lymphocytes 2.67 Absolute Monocytes 1.76 H Absolute Eosinophils 0.05 Absolute Basophils 0.05 RBC Morphology Normal ESR 36 H PT INR Sodium 139 139 Potassium 3.4 L 3.6 Chloride 103 103 Carbon Dioxide 25.3 25.2 Anion Gap 10.7 10.8 BUN 6 L 4 L Creatinine 0.7 0.7 Est GFR (CKD-EPI 2020) 119.46 119.46 Glucose 118 H 89 Calcium 8.3 L 7.9 L Magnesium Total Bilirubin 0.6 AST 420 H ALT 835 H Alkaline Phosphatase 216 H C-Reactive Protein 2.17 H Total Protein 6.4 Albumin 2.6 L Random Vancomycin Urine Opiates Screen Negative Urine Methadone Screen Negative Ur Barbiturates Screen Negative Ur Tricyclics Screen Negative Ur Amphetamines Screen Negative U Benzodiazepines Scrn Negative Urine Cocaine Screen Positive A Ur THC Screen Positive A Ethyl Alcohol < 3.0 09/09/23 03:16 WBC 16.24 H RBC 4.15 L Hgb 13.0 L Hct 38.7 L MCV 93 MCH 31.3 MCHC 33.6 RDW 14.4 H Plt Count 318 MPV 10.0 Immature Gran % 0.3 Neutrophils % 73.2 Lymphocytes % 16.4 Monocytes % 9.0 Eosinophils % 0.7 Basophils % 0.4 Nucleated RBC % 0.0 Absolute Neutrophils 11.89 H Absolute Lymphocytes 2.66 Absolute Monocytes 1.46 H Absolute Eosinophils 0.11 Absolute Basophils 0.06 RBC Morphology ESR PT 11.3 H INR 1.1 Sodium 140 Potassium 3.7 Chloride 105 Carbon Dioxide 27.0 Anion Gap 8.0 BUN 8 Creatinine 0.9 Est GFR (CKD-EPI 2020) 110.73 Glucose 128 H Calcium 8.2 L Magnesium 2.2 Total Bilirubin 0.6 AST 425 H ALT 796 H Alkaline Phosphatase 221 H C-Reactive Protein Total Protein 6.3 L Albumin 2.5 L Random Vancomycin 6.2 Urine Opiates Screen Urine Methadone Screen Ur Barbiturates Screen Ur Tricyclics Screen Ur Amphetamines Screen U Benzodiazepines Scrn Urine Cocaine Screen Ur THC Screen Ethyl Alcohol PAWSS Have you Been Recently Intoxicated or Drunk Within the Last 30 days?: No Have you Ever Experienced Previous Episodes of Alcohol Withdrawal?: Yes Have you ever Experienced Withdrawal Seizures?: Yes Have you ever Experienced Delirium Tremens(DT)s?: Yes Have you ever undergone Alcohol Rehabilitation Treatment (i.e, inpt ot outpatient treatment programs)?: Yes Have you ever Experienced Blackouts?: Yes Have you ever Combined Alcohol with other Downers within the last 90 days?: No Have you ever Combined Alcohol with any other Substance of Abuse during the last 90 days?: No Positive Blood Alcohol level on Presentation? [PCS.BAL]: No Evidence of Increased Autonomic Activity (i.e. HR>120, tremor, sweating, agitation, nausea)?: No Result: 5 Time Spent with Patient Time Spent with Patient: 25-34 minutes Time was spent: preparing to see the patient(eg.review tests), obtaining and/or reviewing separately otained hiistory, ordering medications,tests, procedures, referring, communicating with other health home health care case manager, indepentently interpreting results and counseling the patient
[2023-09-09] MEDS: VANCOMYCIN/WATER (PEG) 750 MG/150 ML BAG 100 MG IV ×2 (13:12→19:45)
--- NOTE | 2023-09-09 13:50 | W.ANESPOSTOP ---
Postoperative Evaluation Date, Time and Location Date Performed: 09/09/23 Time Performed: 12:20 Patient Location: PACU Vital Signs Most Recent Imported Vital Signs: Most Recent Vital Signs Temp Pulse Resp BP Pulse Ox 35.5 C L 56 L 16 119/79 99 09/09/23 13:45 09/09/23 13:45 09/09/23 13:45 09/09/23 13:45 09/09/23 13:45 Pain Score Most Recent Pain Score: Most Recent Pain Score Pain Level 0 09/09/23 13:30 Assessment Mental Status: Awake (Alert & Oriented to Patient Baseline) Airway and Respiratory Function: Patent airway with normal (patient baseline) respiratory exam Cardiovascular Function: Hemodynamically Stable Hydration Status: Adequately Hydrated Nausea & Vomiting: No Nausea or Vomiting Pain: Pt. Denies Any Pain Peripheral Nerve Block: Regional nerve block not resolved at time of post operative discharge
--- NOTE | 2023-09-09 14:11 | IN_ITS ---
PT Notes Visit Reasons: Abscess right forearm, IV drug use Physical Therapy Inpatient Initial Evaluation Date: 09/09/2023 Referring Doctor: Frank Lopez MD PT Orders: PT CONSULT: S/P Ortho Surgery. Right hand & wrist range of motion to prevent stiffness Precautions: Fall. Standard. Activity as tolerated. Sling on R UE for comfort. Patient Profile/Admitting Diagnosis: Jose is a 38-year-old R-hand dominant male patient with R forearm abscess S/P irrigation and debridement on POD 0. PMHX: All Active Problems (Updated 09/08/23 @ 22:55 by Fidel Owusu) Hypocalcemia (Acute) Hypokalemia (Acute) Abscess of right arm (Acute) Acute thrombosis of right basilic vein (Acute) Cellulitis of arm, right (Acute) Fever (Acute) Acute Lyme disease (Acute) Duodenal ulcer disease (Acute) Alcohol withdrawal (Acute) Chronic calcific pancreatitis (Acute) Hepatic dysfunction (Acute) Abdominal pain (Acute) Nausea & vomiting (Acute) Fatty liver (Acute) IV drug user (Chronic) Alcohol abuse (Chronic) Transaminitis (Chronic) Gallbladder polyp (Acute) GI bleeding (Chronic) Dilated pancreatic duct (Acute) Opioid abuse (Chronic) Discharge planning issues (Acute) Thrombocytopenia (Chronic) Portal hypertensive gastropathy (Acute) Nicotine dependence (Acute) Unsheltered homelessness (Acute) Homelessness (Acute) Agitation (Acute) COVID-19 (Acute) Alcohol withdrawal (Acute) Acute pancreatitis (Acute) Duodenal mass (Acute) Alcoholism (Acute) Infected abrasion of skin of right ankle (Acute) Agitation (Acute) Polysubstance use disorder (Acute) Contusion of right knee (Acute) Lyme disease (Acute) Abrasion (Acute) Trauma (Acute) Inflammatory arthritis (Acute) Alcoholic ketoacidosis (Acute) Vomiting (Acute) Abdominal pain (Acute) Alcoholic ketoacidosis (Acute) Abdominal pain with vomiting (Acute) Depression with anxiety (Acute) Family history of schizophrenia (Chronic) FatherMigraine with aura (Acute) Homeless (Acute) Alcoholic fatty liver (Acute) Severe depression (Chronic) Alcohol abuse (Chronic) Heroin abuse (Chronic) Elevated transaminase level (Acute) Chronic back pain (Chronic) Anxiety, generalized (Chronic) Medical History (Updated 09/08/23 @ 22:55 by Fidel Owusu) Duodenitis DKA (diabetic ketoacidosis) Pancreatitis History of alcohol abuse Depression Opiate addiction Surgical History No significant past surgical history Social History/Home Situation: Currently homeless Equipment Owned/DME: None Subjective: Patient complained of pain at 8/10 which Nurse Bassam was aware of and managing. Objective: General Observation: Seated on bedside recliner. R UE on sling. Mental Status: Alert and oriented as to person, place, time, and purpose. Able to pay attention, focus, and respond appropriately. Pain: As above Vital Signs: Closely monitored by nursing staff ROM: Right Upper Extremity: Shoulder Flexion WFL. Shoulder abduction WFL. Elbow flexion WFL. Wrist flexion WFL. Functional opening and closing of hand WFL. Strength: Right Upper Extremity: Shoulder flexors 3/5. Shoulder abductors 3/5. Elbow flexors 3/5. Elbow extensors 3/5. Sales Systems Engineer weak but functional. Bed Mobility/Transfers: Rolling independent Supine to sit independent Sit to supine independent Sit to stand independent Stand to sit independent Bed to toilet seat independent Toilet seat to bed independent Bed to reclining chair independent Reclining chair to bed independent Gait: Independent with no assistive device for up to 600 feet. Balance: Static Sitting: Normal Dynamic Sitting: Normal Static Standing: Good Dynamic Standing: Good Special Tests: Mobility Limitations Standardized Measure [facility] AM-PAC 6 clicks Basic Mobility Inpatient Short Form: Raw Score: 24 CMS Score: 0% deficit Informed Consent/Education: Patient was instructed in purpose of PT consult and plan of care. Agreeable to proceed with established PT POC to achieve personal goals. Assessment: Patient with limited ability to use R UE due to post-op status and nerve block effect. Was able to perform AROM to R shouder, elbow, wrist and hand for this session. 1. Decreased strength to R UE major muscle groups Impairments are contributing to the following functional limitations: 1. Decreased ability to efficiently and safely use R hand Patient is assessed as a 93928 moderate complexity based on the following: History: 38-year-old male with past medical history as indicated above Examination: Demonstrable impairment in strength, balance, and mobility level with underlying impairments and functional limitations as exhibited above Presentation: Evolving Decision Makin moderate complexity Goals: Goals X1 week 1. Patient will demonstrate mastery of R UE AROM exercises to promote healing of R forearm debridement site. Plan of Care/Treatment Plan: 1-2x/day, 7 days/week x 1 week. Plan of care has been reviewed with the MANAGER GOVERNMENT providing the service under Physical Therapy direction. Initiate Physical Therapy intervention for therapeuitic ex ercises. DISCHARGE RECOMMENDATIONS: [] Home with no services [] [] Home with services [specify] [] Home with outpatient PT [] [] SNF for continued rehabilitation [] [] Senior Care Care [] [] SNF versus LTC based on ability to participate and progress [] [X] Home with otpatient OT services to continue hand and wrist as well as forearm rehab. TREATMENT CODE/TIME: 81542 x 26 minutes for 1 unit (14:11-14:37). Thank you for the opportunity to participate in the care of this patient. Sheila Sánchez PT, DPT, CLT [facility] [place], [place]
--- NOTE | 2023-09-09 15:33 | PHA.REVIEW2 ---
Pharmacy Admission Review Admission Clinical Review Admission Pharmacy Review: Abscess of right forearm (Acute) Hypocalcemia (Acute) Hypokalemia (Acute) Abscess of right arm (Acute) No Known Allergies Allergy (Verified 09/08/23 16:51) Resuscitation Status Full Code Height 5 ft 6 in Weight 60.3 kg Pharmacy Admission Review Renal Dosing Renal Dosing: BUN 8 mg/dL (7-18) 09/09/23 03:16 Creatinine 0.9 mg/dL (0.70-1.30) 09/09/23 03:16 Medications needing adjustments: Reviewed (crcl = 98, no adjustments needed) Anticoagulation Anticoagulation: Hgb 13.0 g/dL (13.5-17.5) L 09/09/23 03:16 Hct 38.7 % (40.0-50.0) L 09/09/23 03:16 Plt Count 318 10^3/uL (130-400) 09/09/23 03:16 INR 1.1 (0.9-1.1) 09/09/23 03:16 Creatinine 0.9 mg/dL (0.70-1.30) 09/09/23 03:16 DVT Prophylaxis: Reviewed (SCDs) Therapeutic Anticoagulation: N/A Opiate Usage Evaluate Pain Scale/Pains Meds: Reviewed (not on opiates (uses suboxone for OUD)) Relevant Labs Relevant Labs: ESR 36 mm/hr (0-15) H 09/08/23 17:32 Sodium 140 mmol/L (136-145) 09/09/23 03:16 Potassium 3.7 mmol/L (3.5-5.1) 09/09/23 03:16 Chloride 105 mmol/L (98-107) 09/09/23 03:16 Magnesium 2.2 mg/dL (1.8-2.4) 09/09/23 03:16 C-Reactive Protein 2.17 mg/dL (<or=0.5) H 09/08/23 17:32 Electrolytes, C-Reactive P, ESR: Reviewed DM Control DM Control: N/A Cardiac Review BP, HR, EF%: Reviewed QTc Review QTc: Not Reviewed (no recent EKG to review) IV to PO Switch IV Medications: Reviewed (IV abx for another day or so then plan to switch to oral) Home Meds Home Med List reviewed: Reviewed Relevent Home Meds Not ordered & why?: [facility] confirmed most recent suboxone Rx was for for 8/2mg films to take 2 films daily - last filled 08/20/23 (7 day supply). Spoke w/pt's nurse while in room with pt, he relays that as of lately pt has been using street drugs and most recently has been taking 1/2 film (4mg/1mg) daily - this is how med is currently ordered. (goes to [facility]) Current Meds Current Medication Order Review: Reviewed Pharmacy Antibiotic Review Relevant Labs: Relevant Labs 09/08/23 17:32 C-Reactive Protein 2.17 H Pharmacy Antibiotic Activity: C/S review and Reviewed, no change Comments: vancomycin 750 mg q8h + ceftriaxone 2g q24h, indication: R arm abscess (drained in OR today), cultures still pending. If blood cultures positive, pt will be worked up for endocarditis. If negative plan is to switch to oral agent(s) in the next 24 hrs
--- NOTE | 2023-09-09 15:48 | CHAPLAIN ---
Ayaan was sitting on the edge of the bed when I visited. He said he'll be going to the OR anytime now to drain his arm. He'll be on antibiotics for infection. According to Care Management notes, Ayaan is currently without housing and dealing with MALIK. He told me that he's not allowed to have anything to eat and he hasn't eaten in a few days. He also said that although staff ask what they can do to help him, they won't give him any food or pain meds, the two things he's asked for. Ayaan said he's not in touch with anyone for support now. He did have a phone with him.
[2023-09-09] MEDS: cefTRIAXone 2 GM/50 ML BAG IVPB (18:04)
[2023-09-09 19:11] LABS: HIV-1/2 Ag & Ab Screen Negative (Negative)
[2023-09-09 19:26] LABS: Hepatitis C Ab w Rflx HCV PCR Reactive (Negative)
[2023-09-09] MEDS: Nicotine 21 MG/24 HR PATCH TD (20:26)
[2023-09-10 00:08] VITALS: BP 145/83; PULSE 54; RESP 20; TEMP 36.2; O2SAT 97
[2023-09-10] MEDS: Acetaminophen 325 MG TAB PO (03:52)
[2023-09-10] MEDS: VANCOMYCIN/WATER (PEG) 750 MG/150 ML BAG 100 MG IV (03:53)
[2023-09-10] MEDS: Normal Saline Flush 10 ML SYR IVP ×3 (03:54→11:20)
[2023-09-10] MEDS: Ondansetron 4 MG/2 ML VIAL IVP (03:55)
[2023-09-10 04:16] VITALS: BP 111/63; PULSE 64; RESP 22; TEMP 36.1; O2SAT 99
[2023-09-10 05:15] VITALS: RESP 16
[2023-09-10 07:36] VITALS: BP 114/71; PULSE 51; RESP 16; TEMP 36.2; O2SAT 95
--- NOTE | 2023-09-10 08:04 | W.PM.PROGNOT ---
Date of Service Date of service: 09/10/23 Time of Service: 08:04 Assessment and Plan Assessment and plan (1) Abscess of right forearm: Status: Acute Assessment and plan: 38-year-old male Right forearm abscess irrigation and debridement yesterday on 09/09/2023 Patient reports that his pain is not adequately controlled. He will not allow me to evaluate his arm or change his dressing and remove the packing. Patient states that he plans to leave AMA around 9 AM once he has had breakfast and the bus is able to provide him a ride. Patient states that he plans to leave here and go on a hussein and come back in 3 or 4 days, he states that if at that time he is withdrawing from drugsthen we will be forced to give him better pain medication. Upon evaluation this morning patient is lying in his hospital bed. He is argumentative and using profane language. His forearm is bandaged and in a sling. Refuses to allow me to remove his arm from the sling or remove the dressing. Limited exam performed. Patient able to actively demonstrate flexion and extension of the elbow and wrist. He is able to wiggle all of his fingers. There is no erythema or limited streaking distally or proximally to the dressing. I did contact the [facility] floor at approximately 10:30 AM. Patient has not left AMA yet. At this time I am told that his pain is not adequately controlled and he still refuses additional examination or dressing change. Received a call from the hospitalist service while we were in surgery. Contacted hospitalist team after surgical case was completed and we were told that the patient did not allow the nursing staff to perform a dressing change and then left AMA. Objective Last Vital Signs Temp 36.2 C L 09/10/23 07:36 Pulse 51 L 09/10/23 07:36 Resp 16 09/10/23 07:36 BP 114/71 09/10/23 07:36 Pulse Ox 95 09/10/23 07:36 PAWSS Have you Been Recently Intoxicated or Drunk Within the Last 30 days?: No Have you Ever Experienced Previous Episodes of Alcohol Withdrawal?: Yes Have you ever Experienced Withdrawal Seizures?: Yes Have you ever Experienced Delirium Tremens(DT)s?: Yes Have you ever undergone Alcohol Rehabilitation Treatment (i.e, inpt ot outpatient treatment programs)?: Yes Have you ever Experienced Blackouts?: Yes Have you ever Combined Alcohol with other Downers within the last 90 days?: No Have you ever Combined Alcohol with any other Substance of Abuse during the last 90 days?: No Positive Blood Alcohol level on Presentation? [PCS.BAL]: No Evidence of Increased Autonomic Activity (i.e. HR>120, tremor, sweating, agitation, nausea)?: No Result: 5 Time Spent with Patient Time Spent with Patient: <25 minutes Time was spent: preparing to see the patient(eg.review tests), obtaining and/or reviewing separately otained hiistory and referring, communicating with other health rn coronary care unit
[2023-09-10] MEDS: Nicotine 21 MG/24 HR PATCH TD (08:48)
[2023-09-10] MEDS: Buprenorphine/Naloxone 4 mg/1 mg FILM 1 EACH SL (08:48)
[2023-09-10 10:22] LABS: HCV RNA Qualitative Detected (Undetected)
[2023-09-10] MEDS: ACETAMINOPHEN 1,000 MG/100 ML BTL 400 MG IVPB (11:19)
[2023-09-10 11:29] VITALS: BP 129/87; PULSE 65; RESP 16; TEMP 36.5; O2SAT 95
--- NOTE | 2023-09-10 11:40 | NUR.NOTE ---
Nursing Note:pt refusing labs ATT, pt refusing to have surgical dressing changed. pt believes that the hospital is trying to get rid of him CHERYL, not treat his pain. Pt is visibly upset and voicing tp this nurse They (the hospital) are forcing me to go out and use again, find my own pain relief, then they will have to treat me when I come back with pancreatitis. This nurse has advocated for this pt in seeking appropriate pain relief, IVPB tylenlol was approved ATT.
--- NOTE | 2023-09-10 12:24 | DSE_ITS ---
Date of service: 09/10/23 Time of Service: 12:24 DS: Diagnosis Discharge Diagnosis (1) Abscess of right forearm: Status: Acute Discharge Plan Disposition Patient Disposition: Against Medical Advice Condition: Fair Discharge Details Reason For Visit: Abscess right forearm, IV drug use Admit Date/Time: 09/08/23 22:59 Admit Provider: Fidel Owusu Attending Provider: Fidel Owusu Primary Care Provider: Joel Martinez [facility] Hospital Course Hospital Course: This is a 38-year-old male patient extensive past medical history for substance abuse alcohol disorder psychiatric disorder presented here with abscess of the right forearm he was admitted under hospitalist services placed on broad- spectrum antibiotics. Orthopedic services was consulted and did take him to the OR for I&D of his abscess. Abscess was drained of purulent fluid. Wound culture did grow strep pyogenes. Postop day #1 patient decided he was leaving AMA to say he wanted to go back to the streets to use pain medication. Did decline 1 time antibiotic dose of dalbavancin to treat his infection as it is anticipated he will be noncompliant. Did review benefits of treating infection with antibiotic which would treat the pain and risks of leaving without appropriate antibiotic treatment. Patient verbalizes understanding stating I do not care about the infection, I am going back to the street and I will return here and you will have to admit me again. Patient declines offer for antibiotics prior to discharge. Dr. Lazcano notified of patient leaving AMA Home Meds and New Rx's Prescriptions: Continued buprenorphine-naloxone [Suboxone] 4-1 mg film 1 film sublingual DAILY Discharge Instructions Referrals: Frank Lopez MD [ [facility] STAFF PHYSICIAN] - Discharge Orders Discharge Orders: Discharge Order (Routine); Ordered 09/10/23 Ordered By: Myranda Yoo DS: Summary Time Spent with Patient providing and/or coordinating discharge services: Less than 30 minutes Status at Discharge Functional status at discharge: independent ambulation Overall status at discharge: patient is progressing back to baseline Mental Status: mental status grossly normal Speech and Movement: agitated Mood: irritable mood Affect: labile affect and irritable affect Quality:SDOH Health Related Social Needs: Health related social needs risk of homeless, food ins ecurity, transpo insecurity, material hardship Exam Narrative Exam Narrative: Chronically ill-appearing older than stated age disheveled thin male. Is in no acute distress vital signs are stable. Head is atraumatic he is sitting up on the side of the bed hostile mood and affect. He has a bulky dressing to his right forearm. And slightly swollen no erythema appreciated proximal to the dressing. Skin with lesions consistent with picking. Moving all his extremities. He is awake alert and oriented to person place and situation. I have no reason to believe he does not have capacity Psych Mental Status: mental status grossly normal Speech and Movement: agitated Mood: irritable mood Affect: labile affect and irritable affect DS: Data Vitals/I&O Vitals and I&O: Vital Signs Temperature 36.5 C 09/10/23 11:29 Temperature Source Tympanic 09/10/23 11:29 Pulse 65 09/10/23 11:29 Pulse Rhythm Regular 09/10/23 08:45 Respiratory Rate 16 09/10/23 11:29 Respiratory Effort Normal, Non-Labored 09/10/23 08:45 Respiratory Depth Normal 09/10/23 08:45 Respiratory Pattern Normal 09/10/23 08:45 Blood Pressure 129/87 09/10/23 11:29 Blood Pressure Mean 89 09/09/23 10:46 Blood Pressure Position Supine 09/09/23 10:46 Pulse Oximetry 95 09/10/23 11:29 Respiratory End-tidal CO2 33 09/09/23 12:34 Oxygen Delivery Method Room Air 09/10/23 11:29 Oxygen Flow Rate 0 09/10/23 11:29 Pain Level 8 09/10/23 11:19 Comment Pt resting with eyes closed 09/10/23 05:15 Intake & Output 09/09/23 09/10/23 09/10/23 23:59 11:59 23:59 Intake Total 1510 / 2760 520 / 520 Output Total 250 / 825 Balance 1260 / 1935 520 / 520 Weight 59.6 kg Intake: IV 650 / 1900 160 / 160 Oral 860 / 860 360 / 360 Output: Urine 250 / 825 Other: Urine Color Yellow Urine Appearance Clear Clear Urine Odor None Comment pt voided pt voided Stool Size Moderate Stool Characteristics Soft Formed Emesis Description None None Voiding Methods Toilet Toilet Data Completed and Pending Labs on day of discharge: Labs from last 24 hours 09/10/23 09/09/23 09/08/23 05:35 03:16 17:52 WBC Pending RBC Pending Hgb Pending Hct Pending MCV Pending MCH Pending MCHC Pending RDW Pending Plt Count Pending MPV Pending Immature Gran % Pending Neutrophils % Pending Lymphocytes % Pending Monocytes % Pending Eosinophils % Pending Basophils % Pending Absolute Neutrophils Pending Absolute Lymphocytes Pending Absolute Monocytes Pending Absolute Eosinophils Pending Absolute Basophils Pending ESR Pending C-Reactive Protein Pending Random Vancomycin Pending Hepatitis C Antibody Reactive A HCV RNA Qual (PCR) Detected A Hepatitis C RNA Quant [id number] H HIV 1&2 Ag/Ab, 4th Gen Negative 09/09/23 11:58 Arm - Right Lower Surgical Culture - Pending 09/09/23 11:58 Arm - Right Surgical Culture - Pending 09/09/23 11:58 Arm - Right Lower Anaerobic Culture - Pending 09/09/23 11:58 Arm - Right Lower Anaerobic Culture - Pending Preliminary micro results at discharge 09/08/23 21:15 Anaerobic Culture - Preliminary Arm - Right 09/08/23 20:50 Wound Culture - Preliminary Arm - Right Lower Strep Pyogenes (Group A) 09/08/23 11:45 Blood Culture - Preliminary Blood NO GROWTH 24 HOURS 09/08/23 11:40 Blood Culture - Preliminary Blood NO GROWTH 24 HOURS 09/09/23 11:58 Surgical Culture - Pending Arm - Right Lower 09/09/23 11:58 Surgical Culture - Pending Arm - Right 09/09/23 11:58 Anaerobic Culture - Pending Arm - Right Lower 09/09/23 11:58 Anaerobic Culture - Pending Arm - Right Lower PFSH All Active Problems Abscess of right forearm (Acute) Hypocalcemia (Acute) Hypokalemia (Acute) Abscess of right arm (Acute) Acute thrombosis of right basilic vein (Acute) Cellulitis of arm, right (Acute) Fever (Acute) Acute Lyme disease (Acute) Duodenal ulcer disease (Acute) Alcohol withdrawal (Acute) Chronic calcific pancreatitis (Acute) Hepatic dysfunction (Acute) Abdominal pain (Acute) Nausea & vomiting (Acute) Fatty liver (Acute) IV drug user (Chronic) Alcohol abuse (Chronic) Transaminitis (Chronic) Gallbladder polyp (Acute) GI bleeding (Chronic) Dilated pancreatic duct (Acute) Opioid abuse (Chronic) Discharge planning issues (Acute) Thrombocytopenia (Chronic) Portal hypertensive gastropathy (Acute) Nicotine dependence (Acute) Unsheltered homelessness (Acute) Homelessness (Acute) Agitation (Acute) COVID-19 (Acute) Alcohol withdrawal (Acute) Acute pancreatitis (Acute) Duodenal mass (Acute) Alcoholism (Acute) Infected abrasion of skin of right ankle (Acute) Infected abrasion of skin of left ankle (Acute) Agitation (Acute) Polysubstance use disorder (Acute) Contusion of right knee (Acute) Lyme disease (Acute) Abrasion (Acute) Trauma (Acute) Inflammatory arthritis (Acute) Alcoholic ketoacidosis (Acute) Vomiting (Acute) Abdominal pain (Acute) Alcoholic ketoacidosis (Acute) Abdominal pain with vomiting (Acute) Depression with anxiety (Acute) Family history of schizophrenia (Chronic) Father Migraine with aura (Acute) Homeless (Acute) Alcoholic fatty liver (Acute) Severe depression (Chronic) Alcohol abuse (Chronic) Heroin abuse (Chronic) Elevated transaminase level (Acute) Chronic back pain (Chronic) Anxiety, generalized (Chronic) Medical History Duodenitis DKA (diabetic ketoacidosis) Pancreatitis History of alcohol abuse Depression Opiate addiction Surgical History No significant past surgical history No significant past surgical history Family History Mother Heart disease Asthma Father No problems noted. Sister Asthma Sister No problems noted. Brother No problems noted. Grandfather Essential hypertension Heart disease Asthma Grandfather Essential hypertension Heart disease Grandmother No problems noted. Grandmother No problems noted. Son No problems noted. Daughter No problems noted. Daughter Asthma Mother Heart disease Diabetes Father Heart disease Stroke Hypertension Self No problems noted. Sister Diabetes Hypertension Maternal Grandmother Cancer type Social History Smoking/Tobacco Use Status: Current every day Tobacco Type: cigarettes Smoking packs per day: 1 Smoking cigarettes per day: 20.0 Years smoked: 30 Smoking pack- years: 30.00 Counseling given: provider counseling and support medications Smoking risk assessment performed?: Yes Alcohol Intake: current Alcohol Intake frequency: 0-2 drinks per day Alcohol type: beer and hard liquor Counseling given: Yes Counseling provided: provider counseling and other Drug use: Never Substance use type: marijuana, heroin, opiates, IV drugs, methamphetamine and other Details: fentanyl Counseling given: Yes Counseling provided: provider counseling Details: on suboxone, weaning Housing: homeless Number of Children: 3 Other: Lives alone in a tent in the [facility] What type of physical activity do you participate in: none 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
--- NOTE | 2023-09-10 14:13 | CMDISCH_ITS ---
Date of service: 09/10/23 Time of Service: 14:13 LACE Index Scoring Tool Questions: Length of Stay (in days): 2 Was the patient admitted via the E.D.?: Yes Comorbidities: Liver or Renal Disease E.D. Visits: 1 Answers: Total Score: 11 Risk of Readmission: High Risk Care Management Discharge Plan Reason for Hospitalization: Right forearm abscess, IV substance use Discharge Plan: Jose left AMA today; the provider reviewed risk of leaving prior to completion of antibiotic therapy. He declined further treatment despite the risk. He declined a prescription for oral antibiotics at the time of discharge. He expressed understanding that he can return to the ED if his symptoms return. Patient/Family Education Needs: Review discharge instructions, as well as risk due to leaving AMA. Discussion of self care needs including ask me three. SDOH Health Related Social Needs: Health related social needs risk of homeless, food ins ecurity, transpo insecurity, material hardship Health related social needs: housing instability, housed, with risk of homelessness(Z59.811), food insecurity(Z59.41), transportation insecurity(Z59.82) and material hardship(utilities)(Z59.87)
== END 2023-09-10 12:30 | disposition left against medical advice (07) | DRG 571 ==
LOC: ER 09-09 00:40 → MS 09-09 00:45
PROVIDERS: Emergency Medicine; Student in an Organized Health Care Education/Training Program; Admitting Provider Family Medicine; PCP Family Medicine; Visit Provider Family Medicine
PROC: 0JBG0ZZ Excision of Right Lower Arm Subcutaneous Tissue and Fascia, Open Approach (ICD-10-PCS; CPT 25028; principal; 2023-09-09 11:00)
DX: L02.413 Cutaneous abscess of right upper limb (principal); K76.6 Portal hypertension; K86.1 Other chronic pancreatitis; Z59.02 Unsheltered homelessness; L03.113 Cellulitis of right upper limb; E87.6 Hypokalemia; E83.51 Hypocalcemia; F11.10 Opioid abuse, uncomplicated; R74.01 Elevation of levels of liver transaminase levels; D69.6 Thrombocytopenia, unspecified; K86.89 Other specified diseases of pancreas; F10.10 Alcohol abuse, uncomplicated; F19.90 Other psychoactive substance use, unspecified, uncomplicated; K82.4 Cholesterolosis of gallbladder; Z86.718 Personal history of other venous thrombosis and embolism; K26.9 Duodenal ulcer, unspecified as acute or chronic, without hemorrhage or perforation; K31.89 Other diseases of stomach and duodenum; F41.0 Panic disorder [episodic paroxysmal anxiety]; B95.0 Streptococcus, group A, as the cause of diseases classified elsewhere
CPT/HCPCS: 25028; 11042; 00123; 10060; 36415; 80048; 80053; 80307; 85652; 86803; 87040; 87077; 87389; 87522; 96365; 96366; 96367; 96372; 96375; 97162; 99285; 73201; 76705; 80202; 80320; 83735; 85025; 85610; 86140; 87070; 87075; 87205; 99223; 99232; 99238; J0131; J0171; J0665; J0690; J0696; J0737; J1100; J1885; J2003; J2250; J2405; J2704; J3370; J3372; J3490

== ENCOUNTER 2023-11-11 08:06 | Emergency (ER) | payer MEDICAID, SELFPAY ==
--- NOTE | 2023-11-11 08:00 | RT.EKG_ITS ---
APPROVED REPORT Exam: Resting ECG Reason for Exam: altered mental status Patient Location: E HR:67 bpm ECG Measurements Heart Rate 67 AXIS DE 146 P 42 QRSd 92 QRS 59 QT 402 T 39 QTc 424 Conclusion Sinus rhythm...normal P axis, V-rate 60- 99
[2023-11-11 08:09] VITALS: BP 135/63; PULSE 69; RESP 12; TEMP 37.2; O2SAT 94
[2023-11-11 08:20] VITALS: TEMP 37.2
--- NOTE | 2023-11-11 08:22 | W.ED.GENAD ---
Discharge Plan Disposition Patient Disposition: Home Condition: Serious Discharge Details Chief Complaint: OD/Poison Clinical Impression: Opioid overdose Primary Care Provider: Joel Martinez ED Provider: Luis Hill Home Meds and New Rx's Prescriptions: No Action buprenorphine-naloxone [Suboxone] 4-1 mg film 1 film sublingual DAILY Discharge Instructions Instructions: Against Medical Advice (ED) Additional Instructions: You are leaving AGAINST MEDICAL ADVICE. Please feel free to return to the emergency department at any time for further workup and treatment as recommended. You have received naloxone. The effects of naloxone may wear off within the next few hours and you may have effects of overdose again. You may have a life-threatening or lifestyle modifying disease. Please return to the emergency ferment at any time for further workup and treatment as recommended. Referrals: [facility] [Outside] Joel Martinez DO [Primary Care Provider] - [facility] General Mode of arrival: ambulatory. Date/Time Provider Initiated Documentation: 11/11/23 08:12. Limitations to Documentation: no limitations. Information obtained by: patient. HPI Narrative: 38-year-old male with multiple past medical problems including history of IV drug use, polysubstance abuse, alcohol abuse, presents today by EMS with altered mental status. Patient apparently was found minimally responsive in a [facility]. Patient has denied drug use. No signs of trauma at seen. History and review of systems limited secondary to altered mental status. Blood sugar by EMS was normal. Related Data Home Medications Medication Instructions Recorded Confirmed buprenorphine 4 mg-naloxone 1 mg 1 film sublingual DAILY 09/08/23 11/11/23 sublingual film (Suboxone) Allergies Allergy/AdvReac Type Severity Reaction Status Date / Time No Known Allergies Allergy Verified 11/11/23 08:15 General Stated Complaint: OD/Poison KAVEH: 3 Review of Systems Unobtainable due to mental status Exam Const General: disheveled and lethargic Orientation: not alert and not awake Limitations: altered mental status Eyes Conjunctivae: normal conjunctivae Sclera: normal sclerae Pupils: pinpoint bilaterally Neck Neck: supple Resp Auscultation: clear to auscultation bilaterally, no rales, no rhonchi and no wheezes Cardio Rate: regular rate and not tachycardic Rhythm: regular rhythm GI Palpation: soft, not firm, no guarding, no masses, not rigid and nontender Skin General skin exam: no rashes or lesions noted Neuro General: not alert and not awake Cognition: abnormal cognition Extrem General: no edema Course Vital Signs Vital signs: Vital Signs Temperature 37.2 C 11/11/23 08:09 Pulse 69 11/11/23 08:09 Respiratory Rate 12 11/11/23 08:09 Blood Pressure 135/63 11/11/23 08:09 Pulse Oximetry 94 11/11/23 08:09 Temperature 37.2 C 11/11/23 08:09 Temperature Source Skin 11/11/23 08:09 Pulse 69 11/11/23 08:09 Respiratory Rate 12 11/11/23 08:09 Respiratory Effort Normal, Non-Labored 11/11/23 08:16 Blood Pressure 135/63 11/11/23 08:09 Blood Pressure Position Sitting 11/11/23 08:09 Pulse Oximetry 94 11/11/23 08:09 Oxygen Delivery Method Room Air 11/11/23 08:09 Oxygen Flow Rate 0 11/11/23 08:09 Pain Level 0 11/11/23 08:09 Medical Decision Making 38-year-old male with multiple medical problems including history of polysubstance abuse, opioid abuse, heroin use, alcohol abuse, presents with altered mental status. Blood sugar normal in the field. Patient is nonresponsive with pinpoint pupils. Patient is intermittently hypoxic into the upper 80s. Hemodynamically stable. Patient was given intranasal naloxone for hypoxia and responded within 10 minutes. He became more alert and quite agitated. Patient became verbally abusive. Patient refused additional recommended treatment. De-escalation techniques were unsuccessful and patient left AGAINST MEDICAL ADVICE prior to receiving discharge instructions. Quality:SDOH Health Related Social Needs: Health related social needs risk of homeless, food insecurity, transpo insecurity, material hardship [facility] All Active Problems (Updated 11/11/23 @ 08:32 by Luis Hill MD) Opioid overdose (Acute) Abscess of right forearm (Acute) Hypocalcemia (Acute) Abscess of right arm (Acute) Acute thrombosis of right basilic vein (Acute) Cellulitis of arm, right (Acute) Fever (Acute) Acute Lyme disease (Acute) Duodenal ulcer disease (Acute) Alcohol withdrawal (Acute) Chronic calcific pancreatitis (Acute) Hepatic dysfunction (Acute) Abdominal pain (Acute) Nausea & vomiting (Acute) Fatty liver (Acute) IV drug user (Chronic) Alcohol abuse (Chronic) Transaminitis (Chronic) Gallbladder polyp (Acute) GI bleeding (Chronic) Dilated pancreatic duct (Acute) Opioid abuse (Chronic) Discharge planning issues (Acute) Thrombocytopenia (Chronic) Portal hypertensive gastropathy (Acute) Nicotine dependence (Acute) Unsheltered homelessness (Acute) Homelessness (Acute) Agitation (Acute) COVID-19 (Acute) Alcohol withdrawal (Acute) Acute pancreatitis (Acute) Duodenal mass (Acute) Alcoholism (Acute) Infected abrasion of skin of right ankle (Acute) Infected abrasion of skin of left ankle (Acute) Agitation (Acute) Polysubstance use disorder (Acute) Contusion of right knee (Acute) Lyme disease (Acute) Abrasion (Acute) Trauma (Acute) Inflammatory arthritis (Acute) Alcoholic ketoacidosis (Acute) Vomiting (Acute) Abdominal pain (Acute) Alcoholic ketoacidosis (Acute) Abdominal pain with vomiting (Acute) Depression with anxiety (Acute) Family history of schizophrenia (Chronic) Father Migraine with aura (Acute) Homeless (Acute) Alcoholic fatty liver (Acute) Severe depression (Chronic) Alcohol abuse (Chronic) Heroin abuse (Chronic) Elevated transaminase level (Acute) Chronic back pain (Chronic) Anxiety, generalized (Chronic) Medical History Duodenitis DKA (diabetic ketoacidosis) Pancreatitis History of alcohol abuse Depression Opiate addiction Surgical History No significant past surgical history No significant past surgical history Family History Mother Heart disease Asthma Father No problems noted. Sister Asthma Sister No problems noted. Brother No problems noted. Grandfather Essential hypertension Heart disease Asthma Grandfather Essential hypertension Heart disease Grandmother No problems noted. Grandmother No problems noted. Son No problems noted. Daughter No problems noted. Daughter Asthma Mother Heart disease Diabetes Father Heart disease Stroke Hypertension Self No problems noted. Sister Diabetes Hypertension Maternal Grandmother Cancer type Social History Smoking/Tobacco Use Status: Current every day Tobacco Type: cigarettes Smoking packs per day: 1 Smoking cigarettes per day: 20.0 Years smoked: 30 Smoking pack-years: 30.00 Counseling given: provider counseling and support medications Smoking risk assessment performed?: Yes Alcohol Intake: current Alcohol Intake frequency: 0-2 drinks per day Alcohol type: beer and hard liquor Counseling given: Yes Counseling provided: provider counseling and other Drug use: Never Substance use type: marijuana, heroin, opiates, IV drugs, methamphetamine and other Details: fentanyl Counseling given: Yes Counseling provided: provider counseling Details: on suboxone, weaning Housing: homeless Number of Children: 3 Other: Lives alone in a tent in the 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
== END 2023-11-11 08:32 | disposition left against medical advice (07) ==
LOC: ER 09:02
PROVIDERS: Emergency Provider Student in an Organized Health Care Education/Training Program; PCP Family Medicine
DX: T40.2X4A Poisoning by other opioids, undetermined, initial encounter (principal); R41.82 Altered mental status, unspecified; F17.210 Nicotine dependence, cigarettes, uncomplicated; Y92.89 Other specified places as the place of occurrence of the external cause; Z53.29 Procedure and treatment not carried out because of patient's decision for other reasons
CPT/HCPCS: 93005; 99283; 93010

== ENCOUNTER 2023-12-09 09:10 | Emergency (ER) | payer MEDICAID, SELFPAY ==
--- NOTE | 2023-12-15 09:12 | NUR.NOTE ---
Nursing Note: Accessed chart to look for information per medical records request
== END 2023-12-09 10:41 | disposition home or self-care (01) ==
LOC: ER 11:17
PROVIDERS: Emergency Provider Emergency Medicine; PCP Family Medicine
DX: R46.4 Slowness and poor responsiveness (principal); W19.XXXA Unspecified fall, initial encounter
CPT/HCPCS: 99281

== ENCOUNTER 2023-12-09 14:14 | Emergency (ER) | payer MEDICAID, SELFPAY ==
[2023-12-09] VITALS (9 sets, daily range): BP systolic 90–121; BP diastolic 65–76; PULSE 88–104; RESP 9–29; TEMP 36.5; O2SAT 95–99
--- NOTE | 2023-12-09 14:15 | RT.EKG_ITS ---
APPROVED REPORT Exam: Resting ECG Reason for Exam: altered mental status Patient Location: E HR:93 bpm ECG Measurements Heart Rate 93 AXIS AZ 132 P 88 QRSd 89 QRS 91 QT 339 T 31 QTc 422 Conclusion Sinus rhythm...normal P axis, V-rate 60- 99 ST elev, probable normal early repol pattern...ST elevation, age<55
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
[2023-12-09] MEDS: Ondansetron O.D.T. 4 MG TABEF, 3 TABS/BTL PO (15:23)
== END 2023-12-09 15:49 | disposition home or self-care (01) ==
PROVIDERS: Emergency Provider Emergency Medicine; PCP Family Medicine
DX: F11.10 Opioid abuse, uncomplicated (principal); F17.210 Nicotine dependence, cigarettes, uncomplicated
CPT/HCPCS: 93005; 99283; 93010; J2310

== ENCOUNTER 2024-01-08 06:06 | Emergency (ER) | payer MEDICAID, SELFPAY ==
[2024-01-08] VITALS (28 sets, daily range): BP systolic 99–117; BP diastolic 46–68; PULSE 51–74; RESP 9–25; TEMP 36.6
[2024-01-08 06:36] LABS: Lactate 1.2 mmol/L (0.6-1.4)
--- NOTE | 2024-01-08 06:38 | W.ED.GENAD ---
Discharge Plan Disposition Patient Disposition: Home Discharge Details Clinical Impression: Cutaneous abscess of right ankle Primary Care Provider: Joel Martinez ED Provider: Nik Peña Home Meds and New Rx's Prescriptions: New sulfamethoxazole-trimethoprim [Bactrim DS] 800-160 mg tablet 1 tab PO BID 7 Days Qty: 14 0RF Continued buprenorphine-naloxone [Suboxone] 4-1 mg film 1 film sublingual DAILY Patient Comments: Pt reports not taking Discharge Instructions Instructions: Abscess Incision and Drainage (DC) Additional Instructions: You are seen in the emergency department for your abscess. This was drained. Please ensure you keep your lower extremity dry and soak it twice a day as you are able. Please return if you develop fevers nausea or vomiting or cannot take your antibiotics as directed. HPI <Phyllis Chapin MD - Last Filed: 01/08/24 08:03> General Mode of arrival: EMS. Date/Time Provider Initiated Documentation: 01/08/24 06:12. Limitations to Documentation: no limitations. Information obtained by: patient. HPI Narrative: 38yo M with hx IVDU, ETOH abuse with hx severe withdrawal, presenting via EMS for right ankle pain. For the past two weeks has had pain and lesions to both lower extremities with purulent drainage. Over the past three days his right ankle has become more painful and swollen and this morning he was unable to walk on it. Has not taken anything today for pain. No fevers, chills, rash, nausea, vomiting, numbness, tingling, or weakness. He is otherwise in his usual state of health. Related Data Home Medications ?Medication ?Instructions ?Recorded ?Confirmed buprenorphine 4 mg-naloxone 1 mg 1 film sublingual DAILY 09/08/23 01/08/24 sublingual film (Suboxone) sulfamethoxazole 800 1 tab PO BID 7 days #14 tabs 01/08/24 mg-trimethoprim 160 mg tablet (Bactrim DS) Previous Rx's ?Medication ?Instructions ?Recorded sulfamethoxazole 800 1 tab PO BID 7 days #14 tabs 01/08/24 mg-trimethoprim 160 mg tablet (Bactrim DS) Allergies Allergy/AdvReac Type Severity Reaction Status Date / Time No Known Allergies Allergy Verified 01/08/24 06:20 General Stated Complaint: Cellulitis KAVEH: 3 <Nik Peña MD - Last Filed: 01/08/24 16:27> HPI Narrative: 38yo M with hx IVDU, ETOH abuse with hx severe withdrawal, presenting via EMS for right ankle pain. For the past two weeks has had pain and lesions to both lower extremities with purulent drainage. Over the past three days his right ankle has become more painful and swollen and this morning he was unable to walk on it. Has not taken anything today for pain. No fevers, chills, rash, nausea, vomiting, numbness, tingling, or weakness. He is otherwise in his usual state of health. 10:[address] performed of patient's right lower extremity showing 3-1/2 cm soft tissue abscess in the medial tissues of the right ankle. Will reassess patient and perform incision and drainage. 10:45 AM Patient had difficult time with incision and drainage so I did not place a loop drain but I was able to express purulent drainage. He does have scattered multiple sores over bilateral upper and lower extremities possibly consistent with xylazine use. I did not send the drainage for culture as my suspicion was high for MRSA so we will treat empirically with trimethoprim/sulfamethoxazole. Will touch base with physical therapy. 11:15 AM I spoke to Dinorah from PT who advised that the patient was appropriate for a walker. I spoke with Rhonda from care management who advised patient to call the [facility] and [facility] as he may be able to obtain housing. Will prescribe him a walker and trimethoprim/sulfamethoxazole. 12:20 PM RCT was arranged to transport patient to the [facility] temporary assisted. I gave patient his prescriptions filled from pharmacy as he reported an issue with the local [facility]. Patient tolerated p.o. and had reassuring repeat vitals in the ED. Review of Systems <Phyllis Chapin MD - Last Filed: 01/08/24 08:03> Narrative: see HPI Exam <Phyllis Chapin MD - Last Filed: 01/08/24 08:03> Narrative Exam Narrative: General: Alert, chronically ill appearing. Head: Normocephalic, atraumatic Neck: Trachea midline, ?Neck supple. ENT: ?MMM.? Cardiac: ?RRR, no murmurs appreciated Resp: No respiratory distress. CTAB. Abd: ?Soft, non-distended, nontender : ?No suprapubic tenderness. Extremities: ?Multiple scabs all extremities. Bilateral lower extremities with multiple purulent draining lesions on shins, calf, and ankles with surrounding erythema. Right proximal ankle/distal richards with erythema and swelling. No bony tenderness at ankle. No pain with flexion, extension, inversion, or eversion at ankle. Severe pain with palpation of all lesions. No palpable abscess. Neurologic: GCS 15. ? Moves all extremities freely against gravity Course <Phyllis Chapin MD - Last Filed: 01/08/24 08:03> Vital Signs Vital signs: Vital Signs Temperature 36.6 C 01/08/24 06:08 Pulse 74 01/08/24 06:08 Respiratory Rate 16 01/08/24 06:08 Blood Pressure 107/64 01/08/24 06:08 Temperature 36.6 C 01/08/24 06:08 Temperature Source Temporal Artery Scan 01/08/24 06:08 Pulse 74 01/08/24 06:08 Respiratory Rate 16 01/08/24 06:08 Respiratory Effort Normal 01/08/24 06:13 Blood Pressure 107/64 01/08/24 06:08 Oxygen Delivery Method Room Air 01/08/24 06:08 Oxygen Flow Rate 0 01/08/24 06:08 Pain Level 10 01/08/24 06:08 Lab/Test Results Lab/Test Results: 01/08/24 06:28 Blood Blood Culture - Pending 01/08/24 06:19 Blood Blood Culture - Pending Laboratory Tests Range/Units 01/08/24 06:28 VBG Lactate (0.6-1.4) mmol/L 1.2 Procedures <Nik Peña MD - Last Filed: 01/08/24 16:27> Abscess I/D Site: Lower Extremity Side (if applicable): Right Sedation/analgesia: Fentanyl (75 mcg) Local Anesthetic: Lidocaine 1% and With Epi Amount of anesthesia used (mL): 5 Technique: Incised with #11 Blade Amount of fluid expressed (mL): 5 Irrigation: No Packing used?: None Complications: Pain Medical Decision Making <Phyllis Chapin MD - Last Filed: 01/08/24 08:03> 38yo M with hx IVDU, ETOH abuse with hx severe withdrawal, presenting via EMS for right ankle pain. Worsening LE lesions with purulent drainge for two weeks, now with right ankle swelling and worsening pain. No systemic symptoms. Vital signs reassuring on arrival. Not overtly septic. Exam not concerning for septic joint with no pain with ROM and no ankle effusion. BLE with multiple purulent draining lesions (all marked with skin pen on arrival) and no abscesses. Consistent wtih cellulitis, exam not suggestive of necrotizing soft tissue infection. Given degree of pain and hx prior infections and IVDU, also concerning for osteomyelitis. Will further evaluate with labs, CT imaging. -Tylenol and toradol for pain, will cover for MRSA with IV zyvox for now. Blood cultures sent prior to abx. -CIWA ordered, last drink ~1 hour prior to admission -Labs reviewed as below, CBC with marked leukoctyosis to 22 and mild anemia with Hg at baseline, CMP with mild hyponatremia at 133 and elevated transaminases consistent with reported ETOH use, lactate normal, ESR and CRP moderately elevated. Signed out pending UA, CT RLE, and physical therapy. If CT reassuring and able to ambulate would discharge home on PO abx. Lab Data Lab results reviewed: Yes I reviewed the patient's lab results. Labs: 01/08/24 07:35 Blood Blood Culture - Pending 01/08/24 06:28 Blood Blood Culture - Pending Laboratory Tests Range/Units 01/08/24 06:28 WBC (4.4-10.8) 10^3/uL 22.07 H RBC (4.36-5.78) 10^6/uL 4.31 L Hgb (13.5-17.5) g/dL 13.4 L Hct (40.0-50.0) % 40.7 MCV (80-95) fL 94 MCH (27.0-33.0) pg 31.1 MCHC (32.0-36.0) % 32.9 RDW (11.8-14.1) % 12.5 Plt Count (130-400) 10^3/uL 360 MPV (8.0-11.0) fL 8.9 Immature Gran % % 0.7 Neutrophils % % 78.7 Lymphocytes % % 13.9 Monocytes % % 6.2 Eosinophils % % 0.2 Basophils % % 0.3 Nucleated RBC % (0.0-0.3) % 0.0 Absolute Neutrophils (1.2-6.7) 10^3/uL 17.37 H Absolute Lymphocytes (1.2-3.4) 10^3/uL 3.07 Absolute Monocytes (0.1-0.8) 10^3/uL 1.37 H Absolute Eosinophils (0.0-0.7) 10^3/uL 0.04 Absolute Basophils (0.0-0.2) 10^3/uL 0.07 ESR (0-15) mm/hr 46 H VBG Lactate (0.6-1.4) mmol/L 1.2 Sodium (136-145) mmol/L 133 L Potassium (3.5-5.1) mmol/L 3.9 Chloride (98-107) mmol/L 97 L Carbon Dioxide (21.0-32.0) mmol/L 30.1 Anion Gap (3-11) mmol/L 5.9 BUN (7-18) mg/dL 11 Creatinine (0.70-1.30) mg/dL 0.8 Est GFR (CKD-EPI 2020) (mL/min/1.73m2) 114.74 Glucose (74-106) mg/dL 125 H Calcium (8.5-10.1) mg/dL 9.3 Total Bilirubin (0.2-1.0) mg/dL 0.72 AST (15-37) U/L 81 H ALT (16-63) U/L 124 H Alkaline Phosphatase (46-116) U/L 112 C-Reactive Protein (<or=0.5) mg/dL 12.29 H Total Protein (6.4-8.2) g/dL 8.7 H Albumin (3.4-5.0) g/dL 3.1 L Quality:SDOH Health Related Social Needs: Health related social needs risk of homeless, material hardship, food insecurity, transpo insecurity [facility] <Phyllis Chapin MD - Last Filed: 01/08/24 08:03> All Active Problems (Updated 01/08/24 @ 10:45 by Nik Peña MD) Cutaneous abscess of right ankle (Acute) Abscess of right forearm (Acute) Hypocalcemia (Acute) Abscess of right arm (Acute) Acute thrombosis of right basilic vein (Acute) Cellulitis of arm, right (Acute) Fever (Acute) Acute Lyme disease (Acute) Duodenal ulcer disease (Acute) Alcohol withdrawal (Acute) Chronic calcific pancreatitis (Acute) Hepatic dysfunction (Acute) Abdominal pain (Acute) Nausea & vomiting (Acute) Fatty liver (Acute) IV drug user (Chronic) Alcohol abuse (Chronic) Transaminitis (Chronic) Gallbladder polyp (Acute) GI bleeding (Chronic) Dilated pancreatic duct (Acute) Opioid abuse (Chronic) Discharge planning issues (Acute) Thrombocytopenia (Chronic) Portal hypertensive gastropathy (Acute) Nicotine dependence (Acute) Unsheltered homelessness (Acute) Homelessness (Acute) Agitation (Acute) COVID-19 (Acute) Alcohol withdrawal (Acute) Acute pancreatitis (Acute) Duodenal mass (Acute) Alcoholism (Acute) Infected abrasion of skin of right ankle (Acute) Infected abrasion of skin of left ankle (Acute) Agitation (Acute) Polysubstance use disorder (Acute) Contusion of right knee (Acute) Lyme disease (Acute) Abrasion (Acute) Trauma (Acute) Inflammatory arthritis (Acute) Alcoholic ketoacidosis (Acute) Vomiting (Acute) Abdominal pain (Acute) Alcoholic ketoacidosis (Acute) Abdominal pain with vomiting (Acute) Depression with anxiety (Acute) Family history of schizophrenia (Chronic) Father Migraine with aura (Acute) Homeless (Acute) Alcoholic fatty liver (Acute) Severe depression (Chronic) Alcohol abuse (Chronic) Heroin abuse (Chronic) Elevated transaminase level (Acute) Chronic back pain (Chronic) Anxiety, generalized (Chronic) Medical History Duodenitis DKA (diabetic ketoacidosis) Pancreatitis History of alcohol abuse Depression Opiate addiction Surgical History No significant past surgical history No significant past surgical history Family History Mother Heart disease Asthma Father No problems noted. Sister Asthma Sister No problems noted. Brother No problems noted. Grandfather Essential hypertension Heart disease Asthma Grandfather Essential hypertension Heart disease Grandmother No problems noted. Grandmother No problems noted. Son No problems noted. Daughter No problems noted. Daughter Asthma Mother Heart disease Diabetes Father Heart disease Stroke Hypertension Self No problems noted. Sister Diabetes Hypertension Maternal Grandmother Cancer type Social History Smoking/Tobacco Use Status: Current every day Tobacco Type: cigarettes Smoking packs per day: 1 Smoking cigarettes per day: 20.0 Years smoked: 30 Smoking pack-years: 30.00 Counseling given: provider counseling and support medications Smoking risk assessment performed?: Yes Alcohol Intake: current Alcohol Intake frequency: 0-2 drinks per day Alcohol type: beer and hard liquor Counseling given: Yes Counseling provided: provider counseling and other Drug use: Daily Substance use type: marijuana, heroin, opiates, IV drugs, methamphetamine and other Details: fentanyl Counseling given: Yes Counseling provided: provider counseling Details: on suboxone, weaning Housing: homeless Number of Children: 3 Other: Lives alone in a tent in the [facility] What type of physical activity do you participate in: none Drive intox or ride w/intox motor coach bus driver: No Working smoke detector in home: Yes Carbon monox detector in home: Yes Do you feel safe at home: Yes Do you feel safe in your relationship?: Yes Sign Out <Phyllis Chapin MD - Last Filed: 01/08/24 08:03> Sign Out Data: Sign Out Comment: Ankle pain, BLE cellulitis with purulence. Not septic. Not septic joint. Elevated infl markers. Zyvox. FU imaging. Last updated by Phyllis Chapin MD at 01/08/24 07:41 PAWSS <Phyllis Chapin MD - Last Filed: 01/08/24 08:03> Have you Been Recently Intoxicated or Drunk Within the Last 30 days?: Yes Have you Ever Experienced Previous Episodes of Alcohol Withdrawal?: Yes Have you ever Experienced Withdrawal Seizures?: Yes Have you ever Experienced Delirium Tremens(DT)s?: Yes Have you ever undergone Alcohol Rehabilitation Treatment (i.e, inpt ot outpatient treatment programs)?: Yes Have you ever Experienced Blackouts?: No Have you ever Combined Alcohol with other Downers within the last 90 days?: No Have you ever Combined Alcohol with any other Substance of Abuse during the last 90 days?: Yes Positive Blood Alcohol level on Presentation? [PCS.BAL]: Yes Evidence of Increased Autonomic Activity (i.e. HR>120, tremor, sweating, agitation, nausea)?: No Result: 8 <Nik Peña MD - Last Filed: 01/08/24 16:27> Result: 8
[2024-01-08 06:39] LABS: ESR 46 mm/hr (0-15)
[2024-01-08 06:42] LABS: Abs Immature Grans 0.16 10^3/uL (0.0-0.06); Absolute Basophil Count 0.07 10^3/uL (0.0-0.2); Absolute Monocyte Count 1.37 10^3/uL (0.1-0.8); Basophils % 0.3 %; Eosinophils % 0.2 %; HCT 40.7 % (40.0-50.0); HGB 13.4 g/dL (13.5-17.5); Immature Grans % 0.7 %; Lymphocytes % 13.9 %; MCH 31.1 pg (27.0-33.0); MCHC 32.9 % (32.0-36.0); MCV 94 fL (80-95); MPV 8.9 fL (8.0-11.0); Monocytes % 6.2 %; Neutrophils % 78.7 %; Platelet Count 360 10^3/uL (130-400); RBC 4.31 10^6/uL (4.36-5.78); RDW 12.5 % (11.8-14.1); RDW-SD 43.6 fL; WBC 22.07 10^3/uL (4.4-10.8)
[2024-01-08 06:43] LABS: Absolute Eosinophil Count 0.04 10^3/uL (0.0-0.7); Absolute Lymphocyte Count 3.07 10^3/uL (1.2-3.4); Absolute Neutrophil Count 17.37 10^3/uL (1.2-6.7)
[2024-01-08 06:55] LABS: ALT 124 U/L (16-63); AST 81 U/L (15-37); Albumin 3.1 g/dL (3.4-5.0); Alkaline Phosphatase 112 U/L (46-116); Anion Gap 5.9 mmol/L (3-11); BUN 11 mg/dL (7-18); Bilirubin, Total 0.72 mg/dL (0.2-1.0); C-Reactive Protein 12.29 mg/dL (<or=0.5); CO2 30.1 mmol/L (21.0-32.0); CREATININE 0.8 mg/dL (0.70-1.30); Calcium 9.3 mg/dL (8.5-10.1); Chloride 97 mmol/L (98-107); Estimated GFR 114.74 (mL/min/1.73m2); Glucose 125 mg/dL (74-106); Potassium 3.9 mmol/L (3.5-5.1); Sodium 133 mmol/L (136-145); Total Protein 8.7 g/dL (6.4-8.2)
[2024-01-08] MEDS: ACETAMINOPHEN 1,000 MG/100 ML BTL 400 MG IVPB (08:10)
[2024-01-08] MEDS: Ketorolac 15 MG/ML VIAL IVP (08:12)
[2024-01-08] MEDS: Omnipaque 350 MG/ML 100 ML BTL IJ (08:19)
[2024-01-08] MEDS: Normal Saline - Diluent 50 ML VIAL IJ (08:20)
--- NOTE | 2024-01-08 08:33 | DI.CT_ITS ---
Exam(s) CT LOWER EXTREMITY RT W EXAM: CT LOWER EXTREMITY RT W CLINICAL HISTORY: soft tissue infection R distal calf, prox ankle. TECHNIQUE: Imaging Protocol: Axial computed tomography images with coronal and sagittal reformatted images were created and reviewed. CONTRAST MATERIAL: Intravenous: Omnipaque 350 Contrast volume:100 ml Contrast route:IV - COMPARISON: CT CT UPPER EXTREMITY RT W from 09/08/2023 FINDINGS: A small portion of the left lower extremity is included on the field of view. Bones: There is no evidence of fracture or dislocation. No cellulitic or osteomyelitic changes are identified. No lytic or sclerotic lesions are identified. Joints: There is no significant joint space narrowing. No significant periarticular spurring. No v isible joint effusion. Soft Tissues: Edema in the subcutaneous fat bilaterally, right greater than left. In the medial rig ht ankle con just above the level of the medial malleolus, there is a fluid collection containing keyana bles of air consistent with abscess. The approximate measurements are 3.5 x 1.0 x 3.5 cm. The borde rs are not well delineated. IMPRESSION: Abscess measuring 3.5 cm in the medial soft tissues of the right ankle, above the level of the medial malleolus. No evidence of osteomyelitis. RADIATION DOSE DELIVERED: Total DLP DATA REPOSITORY: All CT scans at this facility are submitted to the National Radiology Data Registry (NRDR) Dose Index Registry (DIR) with the [employer] (ACR). RADIATION OPTIMIZATION: All CT scans at this facility use at least one of these dose optimization te chniques: automated exposure control; mA and/or kV adjustment per patient size (includes targeted exa ms where dose is matched to clinical indication); or iterative reconstruction.
[2024-01-08] MEDS: LINEZOLID 600 MG/300 ML BAG 300 MG IVPB (08:48)
--- NOTE | 2024-01-08 09:41 | DI.VRAD_ITS ---
PROCEDURE INFORMATION: Exam: CT Right Lower Extremity With Contrast Exam date and time: 01/08/2024 8:23 AM Age: 38 years old Clinical indication: Other: Soft tissue infection R distal calf, prox ankle TECHNIQUE: Imaging protocol: CT of the right lower extremity with intravenous contrast was performed. Contrast material: OMNIPAQUE; Contrast volume: 100 ml; Contrast route: INTRAVENOUS (IV); COMPARISON: No relevant prior studies available. FINDINGS: Bones/joints: No bony destruction, periosteal reaction, acute osseous injury or significant osteoarthrosis. No significant joint effusion. Soft tissues: Soft tissue edema in visualized lower extremities, right greater than left. Poorly defined subcutaneous fluid and gas collection in anteromedial right ankle measures at least 3.4 x 1.1 x 3.4 cm. IMPRESSION: Moderate soft tissue edema. Poorly defined subcutaneous abscess anteromedial right ankle, 3.[address] evidence of osteomyelitis. Dictated and Authenticated by: Ry Warren MD. Ordering:CHARY Ferguson MD
--- NOTE | 2024-01-08 10:23 | PT.INIE ---
Date of service: 01/08/24 Time of Service: 10:00 PT Notes Visit Reasons: Ankle Pain // [facility] Evaluation Date: January 08, 2024 Referring Doctor: Phyllis Chapin PT Orders: PT CONSULT: Safety Consult for D/C Patient Profile/Admitting Diagnosis: 38yo M with hx IVDU, ETOH abuse with hx severe withdrawal, presenting via EMS for right ankle pain. For the past two weeks has had pain and lesions to both lower extremities with purulent drainage. Over the past three days his right ankle has become more painful and swollen and this morning he was unable to walk on it. PMHX: (Updated 12/12/23 @ 00:06 by TIANA ODELL) Abscess of right forearm (Acute) Hypocalcemia (Acute) Abscess of right arm (Acute) Acute thrombosis of right basilic vein (Acute) Cellulitis of arm, right (Acute) Fever (Acute) Acute Lyme disease (Acute) Duodenal ulcer disease (Acute) Alcohol withdrawal (Acute) Chronic calcific pancreatitis (Acute) Hepatic dysfunction (Acute) Abdominal pain (Acute) Nausea & vomiting (Acute) Fatty liver (Acute) IV drug user (Chronic) Alcohol abuse (Chronic) Transaminitis (Chronic) Gallbladder polyp (Acute) GI bleeding (Chronic) Dilated pancreatic duct (Acute) Opioid abuse (Chronic) Discharge planning issues (Acute) Thrombocytopenia (Chronic) Portal hypertensive gastropathy (Acute) Nicotine dependence (Acute) Unsheltered homelessness (Acute) Homelessness (Acute) Agitation (Acute) COVID-19 (Acute) Alcohol withdrawal (Acute) Acute pancreatitis (Acute) Duodenal mass (Acute) Alcoholism (Acute) Infected abrasion of skin of right ankle (Acute) Infected abrasion of skin of left ankle (Acute) Agitation (Acute) Polysubstance use disorder (Acute) Contusion of right knee (Acute) Lyme disease (Acute) Abrasion (Acute) Trauma (Acute) Inflammatory arthritis (Acute) Alcoholic ketoacidosis (Acute) Vomiting (Acute) Abdominal pain (Acute) Alcoholic ketoacidosis (Acute) Abdominal pain with vomiting (Acute) Depression with anxiety (Acute) Family history of schizophrenia (Chronic) FatherMigraine with aura (Acute) Homeless (Acute) Alcoholic fatty liver (Acute) Severe depression (Chronic) Alcohol abuse (Chronic) Heroin abuse (Chronic) Elevated transaminase level (Acute) Chronic back pain (Chronic) Anxiety, generalized (Chronic) Medical History Duodenitis DKA (diabetic ketoacidosis) Pancreatitis History of alcohol abuse Depression Opiate addiction Surgical History No significant past surgical history Social History/Home Situation: Homeless Current Functional Limitations: decreased activity tolerance, unable to WB R LE secondary to pain and swelling Equipment Owned/DME: None Subjective: Ayaan notes that he has been in a lot of pain over the last few days. Came to ED this morning due to being unable to walk. Objective: General Observation: IV access, telemetry, multiple wounds/sore bilateral UE/LEs, increased redness R LE with pitting edema Mental Status: Alert and oriented x3 Pain: reports severe pain bilateral LE's due to multiple sores/wounds Vital Signs: monitored in ED ROM: Right Upper Extremity: Demonstrates WNL AROM R UE Left Upper Extremity: Demonstrates WNL AROM L UE Right Lower Extremity: Demonstrates WNL hip ROM, limited knee extension by 10-15 degrees, limited ankle DF to neutral Left Lower Extremity: Strength: Right Upper Extremity: Demonstrates 5/5 R UE strength Left Upper Extremity: Demonstrates 5/5 L UE strength Right Lower Extremity: Hip flexion 4+/5,knee extension 5/5, knee flexion 4/5 with pain, DF 4/5 Left Lower Extremity: Hip flexion 5/5, knee extension 5/5, knee flexion 5/5, DF 4/5 Sensation: Intact to light touch Bed Mobility/Transfers: supine to sit:independent sit to supine: independent sit to stand: supervision with FWW stand to sit: independent Gait: NWB R LE 50 ft with use FWW, CGA Balance: Static Sitting: Normal Dynamic Sitting: Normal Static Standing: Good Dynamic Standing: Fair Informed Consent/Education: Patient instructed in purpose of PT consult and plan of care. Assessment: Patient is a 38 year old male referred to physical therapy services with the diagnosis of cellulitis. Patient presents with clinical signs and symptoms consistent with diagnosis, as demonstrated by the following impairment level findings: impaired joint mobility due to swelling and pain R ankle, inability to weight bear R LE due to pain, altered gait requiring assistive device for ambulation. Demonstrates independent bed mobility in all functional transfers. Patient is assessed as a Low 37123 complexity based on the following: History: As above Examination: As above Presentation: Stable Decision Making: Low complexity Plan of Care/Treatment Plan: Patient was seen for safety consultation only. Patient was independent in all functional transfers requiring use of assistive device for weightbearing as tolerated/nonweightbearing right lower extremity. TREATMENT CODE/TIME: 21604, 25 minutes IE Dinorah Escoto, HERMELINDA [place] [facility] Please sign an return this page within 30 days if you agree with the above POC. Thank you! Physician Signature Date [facility] Disclaimer: This note was created using [email or web address] voice recognition software. It was reviewed for major content. However, there may be multiple small discrepancies and errors due to the voice recognition aspects of the software.
[2024-01-08 10:24] LABS: Bilirubin Negative (Negative); Blood Negative (Negative); Clarity Clear (Clear); Glucose Negative (Negative); Ketones Negative (Negative); Leukocyte Esterase Negative (Negative); Nitrite Negative (Negative); Specific Gravity <= 1.005 (1.005-1.025); Urobilinogen 0.2 mg/dL (Up to 0.2)
[2024-01-08] MEDS: fentaNYL 100 MCG/2 ML VIAL (10:30)
== END 2024-01-08 12:42 | disposition home or self-care (01) ==
PROVIDERS: Student in an Organized Health Care Education/Training Program; Emergency Provider Emergency Medicine; PCP Family Medicine
DX: L03.116 Cellulitis of left lower limb; L03.113 Cellulitis of right upper limb; L02.415 Cutaneous abscess of right lower limb; M25.571 Pain in right ankle and joints of right foot; B19.20 Unspecified viral hepatitis C without hepatic coma; F10.20 Alcohol dependence, uncomplicated; F11.20 Opioid dependence, uncomplicated; F10.930 Alcohol use, unspecified with withdrawal, uncomplicated
CPT/HCPCS: 10060; 36415; 80053; 85652; 87040; 96365; 96366; 96368; 96372; 96375; 97161; 99284; 73701; 81003; 83605; 85025; 86140; 99283; J0131; J1885; J2020; J3010; J3490

== ENCOUNTER 2024-01-08 20:23 | Inpatient (IN) | payer MEDICAID, SELFPAY ==
[2024-01-08] VITALS (26 sets, daily range): BP systolic 98–133; BP diastolic 52–81; PULSE 73–86; RESP 10–27; TEMP 36.9; O2SAT 95–100
--- NOTE | 2024-01-08 21:45 | RT.EKG_ITS ---
APPROVED REPORT Exam: Resting ECG Reason for Exam: chest pain Patient Location: E HR:77 bpm ECG Measurements Heart Rate 77 AXIS CO 129 P 77 QRSd 84 QRS 87 QT 383 T 67 QTc 434 Conclusion Sinus rhythm...normal P axis, V-rate 60- 99
[2024-01-08 21:46] LABS: Abs Immature Grans 0.11 10^3/uL (0.0-0.06); Absolute Eosinophil Count 0.04 10^3/uL (0.0-0.7); Absolute Monocyte Count 1.19 10^3/uL (0.1-0.8); Basophils % 0.2 %; Eosinophils % 0.2 %; HCT 37.3 % (40.0-50.0); HGB 12.5 g/dL (13.5-17.5); Immature Grans % 0.5 %; Lymphocytes % 10.3 %; MCH 31.6 pg (27.0-33.0); MCHC 33.5 % (32.0-36.0); MCV 94 fL (80-95); MPV 9.3 fL (8.0-11.0); Monocytes % 5.7 %; Neutrophils % 83.1 %; Platelet Count 393 10^3/uL (130-400); RBC 3.95 10^6/uL (4.36-5.78); RDW 12.3 % (11.8-14.1); RDW-SD 43.3 fL; WBC 20.79 10^3/uL (4.4-10.8)
[2024-01-08 21:47] LABS: Absolute Basophil Count 0.04 10^3/uL (0.0-0.2); Absolute Lymphocyte Count 2.14 10^3/uL (1.2-3.4); Absolute Neutrophil Count 17.28 10^3/uL (1.2-6.7)
[2024-01-08 21:48] LABS: Lactate 2.5 mmol/L (0.6-1.4)
[2024-01-08 22:03] LABS: ALT 137 U/L (16-63); AST 102 U/L (15-37); Albumin 2.6 g/dL (3.4-5.0); Alkaline Phosphatase 132 U/L (46-116); Anion Gap 6.6 mmol/L (3-11); BUN 13 mg/dL (7-18); Bilirubin, Total 0.38 mg/dL (0.2-1.0); CO2 30.4 mmol/L (21.0-32.0); CREATININE 0.9 mg/dL (0.70-1.30); Calcium 8.3 mg/dL (8.5-10.1); Chloride 97 mmol/L (98-107); Estimated GFR 110.73 (mL/min/1.73m2); Glucose 194 mg/dL (74-106); Magnesium 1.9 mg/dL (1.8-2.4); Potassium 3.7 mmol/L (3.5-5.1); Sodium 134 mmol/L (136-145); Total Protein 7.8 g/dL (6.4-8.2)
[2024-01-08] MEDS: Normal Saline 1,000 ML 1000 ML IV ×2 (22:06→23:21)
[2024-01-08 22:12] LABS: ETHANOL BLOOD < 3.0 mg/dL (<10)
[2024-01-08 22:15] LABS: Creatine Kinase 103 U/L (39-308)
[2024-01-08 22:18] LABS: Procalcitonin 0.8 ng/mL
[2024-01-08 22:25] LABS: *AMPHETAMINES SCREEN URINE Negative (Negative); *BARBITURATES SCREEN URINE Negative (Negative); *BENZODIAZEPINES SCREEN URINE Negative (Negative); Cannabinoids THC Positive (Negative); Cocaine Screen,Urine Positive (Negative); METHADONE URINE SCREEN Negative (Negative); OPIATES URINE SCREEN Negative (Negative)
[2024-01-08 22:26] LABS: Tricyclic Antidepressants Negative (Negative)
[2024-01-08] MEDS: CEFEPIME 2 GM in Normal Saline 100 ML IVPB (22:31)
--- NOTE | 2024-01-08 22:54 | W.ED.GENAD ---
Discharge Plan Disposition Patient Disposition: Admit to [facility] Discharge Details Clinical Impression: Cellulitis and abscess of right leg, Cellulitis of left leg, Cellulitis of hand, right, Elevated transaminase level, Alcohol withdrawal, Leukocytosis, Opiate addiction Primary Care Provider: Joel Martinez ED Provider: Adilia Portillo Home Meds and New Rx's Prescriptions: No Action buprenorphine-naloxone [Suboxone] 4-1 mg film 1 film sublingual DAILY Patient Comments: Pt reports not taking sulfamethoxazole-trimethoprim [Bactrim DS] 800-160 mg tablet 1 tab PO BID 7 Days Qty: 14 0RF HPI General Date/Time Provider Initiated Documentation: 01/08/24 20:28. HPI Narrative: This 38-year-old male with a history of alcoholism/alcohol withdrawal, polysubstance abuse homelessness presents with report of vomiting spreading redness to all 4 extremities, right being most affected. Patient states he was evaluated earlier this morning for an abscess which was drained in the emergency department. He states that since that time he is felt significantly worse and started vomiting. He is currently staying at the [facility]. He last used heroin yesterday per patient. He last consumed alcohol earlier this morning around 1 AM. He states he drinks approximately half a gallon a day. He states he feels generally unwell, having chills and pain to his extremities. He has had nausea and vomiting since this afternoon. He was started on Bactrim and was able to take 1 dose, but he is concerned he vomited it. Denies any blood in vomitus. Related Data Home Medications ?Medication ?Instructions ?Recorded ?Confirmed buprenorphine 4 mg-naloxone 1 mg 1 film sublingual DAILY 09/08/23 01/08/24 sublingual film (Suboxone) sulfamethoxazole 800 1 tab PO BID 7 days #14 tabs 01/08/24 01/08/24 mg-trimethoprim 160 mg tablet (Bactrim DS) Previous Rx's ?Medication ?Instructions ?Recorded sulfamethoxazole 800 1 tab PO BID 7 days #14 tabs 01/08/24 mg-trimethoprim 160 mg tablet (Bactrim DS) Allergies Allergy/AdvReac Type Severity Reaction Status Date / Time No Known Allergies Allergy Verified 01/08/24 06:20 General Stated Complaint: GenMedical KAVEH: 3 Exam Narrative Exam Narrative: Alert, anxious 38-year-old male, pupils equal round reactive to light and accommodation, no jaundice or scleral icterus, lungs clear to auscultation, cardiac rate rhythm regular, no murmur, excoriations covering patient's extremities, cellulitis to right hand, numerous scabbed erythematous pustules to bilateral upper extremities, no obvious petechia or purpura, right lower extremity with cellulitis extending up to proximal knee, abscess over medial malleolus, able to flex and extend ankle, low suspicion for ankle involvement and no evidence of obvious abscess in the joint on CT scan performed earlier today. Cellulitis to left lower extremity, approximately 6 inch region, multiple excoriated scabbed lesions. Patient is alert and oriented, very anxious, no hallucinations, distal pulses are intact. Course Vital Signs Vital signs: Vital Signs Temperature 36.9 C 01/08/24 20:22 Pulse 76 01/08/24 20:22 Respiratory Rate 14 01/08/24 20:22 Blood Pressure 112/63 01/08/24 20:22 Pulse Oximetry 96 01/08/24 20:22 Temperature 36.9 C 01/08/24 20:22 Temperature Source Oral 01/08/24 20:22 Pulse 81 01/08/24 22:31 Pulse 82 01/08/24 22:40 Respiratory Rate 17 01/08/24 22:40 Respiratory Effort Normal 01/08/24 20:33 Respiratory Depth Normal 01/08/24 20:33 Respiratory Pattern Normal 01/08/24 21:50 Blood Pressure 106/71 01/08/24 22:31 Blood Pressure Mean 82 01/08/24 22:31 Blood Pressure Position Supine 01/08/24 20:22 Pulse Oximetry 100 01/08/24 21:50 Oxygen Delivery Method Room Air 01/08/24 20:22 Oxygen Flow Rate 0 01/08/24 20:22 Pain Level 10 01/08/24 20:33 Lab/Test Results Lab/Test Results: 01/08/24 21:35 Ankle - Right Wound Culture - Pending 01/08/24 21:35 Ankle - Right Gram Stain - Final Laboratory Tests Range/Units 01/08/24 01/08/24 21:35 22:04 WBC (4.4-10.8) 10^3/uL 20.79 H RBC (4.36-5.78) 10^6/uL 3.95 L Hgb (13.5-17.5) g/dL 12.5 L Hct (40.0-50.0) % 37.3 L MCV (80-95) fL 94 MCH (27.0-33.0) pg 31.6 MCHC (32.0-36.0) % 33.5 RDW (11.8-14.1) % 12.3 Plt Count (130-400) 10^3/uL 393 MPV (8.0-11.0) fL 9.3 Immature Gran % % 0.5 Neutrophils % % 83.1 Lymphocytes % % 10.3 Monocytes % % 5.7 Eosinophils % % 0.2 Basophils % % 0.2 Nucleated RBC % (0.0-0.3) % 0.0 Absolute Neutrophils (1.2-6.7) 10^3/uL 17.28 H Absolute Lymphocytes (1.2-3.4) 10^3/uL 2.14 Absolute Monocytes (0.1-0.8) 10^3/uL 1.19 H Absolute Eosinophils (0.0-0.7) 10^3/uL 0.04 Absolute Basophils (0.0-0.2) 10^3/uL 0.04 VBG Lactate (0.6-1.4) mmol/L 2.5 H* Sodium (136-145) mmol/L 134 L Potassium (3.5-5.1) mmol/L 3.7 Chloride (98-107) mmol/L 97 L Carbon Dioxide (21.0-32.0) mmol/L 30.4 Anion Gap (3-11) mmol/L 6.6 BUN (7-18) mg/dL 13 Creatinine (0.70-1.30) mg/dL 0.9 Est GFR (CKD-EPI 2020) (mL/min/1.73m2) 110.73 Glucose (74-106) mg/dL 194 H Calcium (8.5-10.1) mg/dL 8.3 L Magnesium (1.8-2.4) mg/dL 1.9 Total Bilirubin (0.2-1.0) mg/dL 0.38 AST (15-37) U/L 102 H ALT (16-63) U/L 137 H Alkaline Phosphatase (46-116) U/L 132 H Creatine Kinase (39-308) U/L 103 Total Protein (6.4-8.2) g/dL 7.8 Albumin (3.4-5.0) g/dL 2.6 L Procalcitonin ng/mL 0.8 Urine Opiates Screen (Negative) Negative Urine Methadone Screen (Negative) Negative Ur Barbiturates Screen (Negative) Negative Ur Tricyclics Screen (Negative) Negative Ur Amphetamines Screen (Negative) Negative U Benzodiazepines Scrn (Negative) Negative Urine Cocaine Screen (Negative) Positive A Ur THC Screen (Negative) Positive A Ethyl Alcohol (<10) mg/dL < 3.0 Medical Decision Making Alert and oriented 38-year-old male, anxious, nauseous, received Zofran via EMS en route. Leukocytosis of 22,000 with a lactate of 2.5, procalcitonin of 0.8 with abscess and cellulitis. Patient is unable to tolerate his antibiotics which were prescribed orally and will need admission to this facility, will initiate vancomycin and cefepime for broad-spectrum coverage. Wound culture positive for gram-positive cocci., No crepitus, no gas noted on CT extremity aside from in the actual abscess site. Abscess was incised and drained by Dr. Vinita Chapin this morning. At this time secondary to cellulitis with abscess, acute leukocytosis, lactic acidosis, elevated procalcitonin, homelessness, polysubstance abuse, patient will need admission to the hospital for IV antibiotics and continued monitoring with possible surgical consultation in the morning. Temp 100.3 orally. Quality:SDOH Health Related Social Needs: Health related social needs inadequate housing, risk of homeless, food insecurity, transpo insecurity, material hardship, personal safety Health related social needs details homeless Critical Care Time Critical Care Time Attestation: Approximately 40 minutes of critical care time secondary to acute alcohol withdrawal requiring phenobarbital administration intravenously and admission to the hospital, sepsis with cellulitis and abscess with IV antibiotics and admission to the hospital requiring continuous telemetry monitoring, diagnostic lab and imaging interpretation, [facility] All Active Problems (Updated 01/08/24 @ 23:14 by GIACOMO Aquino) Opiate addiction (Acute) Leukocytosis (Acute) Alcohol withdrawal (Acute) Elevated transaminase level (Acute) Cellulitis of hand, right (Acute) Cellulitis of left leg (Acute) Cellulitis and abscess of right leg (Acute) Cutaneous abscess of right ankle (Acute) Abscess of right forearm (Acute) Hypocalcemia (Acute) Abscess of right arm (Acute) Acute thrombosis of right basilic vein (Acute) Cellulitis of arm, right (Acute) Fever (Acute) Acute Lyme disease (Acute) Duodenal ulcer disease (Acute) Alcohol withdrawal (Acute) Chronic calcific pancreatitis (Acute) Hepatic dysfunction (Acute) Abdominal pain (Acute) Nausea & vomiting (Acute) Fatty liver (Acute) IV drug user (Chronic) Alcohol abuse (Chronic) Transaminitis (Chronic) Gallbladder polyp (Acute) GI bleeding (Chronic) Dilated pancreatic duct (Acute) Opioid abuse (Chronic) Discharge planning issues (Acute) Thrombocytopenia (Chronic) Portal hypertensive gastropathy (Acute) Nicotine dependence (Acute) Unsheltered homelessness (Acute) Homelessness (Acute) Agitation (Acute) COVID-19 (Acute) Alcohol withdrawal (Acute) Acute pancreatitis (Acute) Duodenal mass (Acute) Alcoholism (Acute) Infected abrasion of skin of right ankle (Acute) Infected abrasion of skin of left ankle (Acute) Agitation (Acute) Polysubstance use disorder (Acute) Contusion of right knee (Acute) Lyme disease (Acute) Abrasion (Acute) Trauma (Acute) Inflammatory arthritis (Acute) Alcoholic ketoacidosis (Acute) Vomiting (Acute) Abdominal pain (Acute) Alcoholic ketoacidosis (Acute) Abdominal pain with vomiting (Acute) Depression with anxiety (Acute) Family history of schizophrenia (Chronic) Father Migraine with aura (Acute) Homeless (Acute) Alcoholic fatty liver (Acute) Severe depression (Chronic) Alcohol abuse (Chronic) Heroin abuse (Chronic) Elevated transaminase level (Acute) Chronic back pain (Chronic) Anxiety, generalized (Chronic) Medical History Duodenitis DKA (diabetic ketoacidosis) Pancreatitis History of alcohol abuse Depression Opiate addiction Surgical History No significant past surgical history No significant past surgical history Family History Mother Heart disease Asthma Father No problems noted. Sister Asthma Sister No problems noted. Brother No problems noted. Grandfather Essential hypertension Heart disease Asthma Grandfather Essential hypertension Heart disease Grandmother No problems noted. Grandmother No problems noted. Son No problems noted. Daughter No problems noted. Daughter Asthma Mother Heart disease Diabetes Father Heart disease Stroke Hypertension Self No problems noted. Sister Diabetes Hypertension Maternal Grandmother Cancer type Social History Smoking/Tobacco Use Status: Current every day Tobacco Type: cigarettes Smoking packs per day: 1 Smoking cigarettes per day: 20.0 Years smoked: 30 Smoking pack-years: 30.00 Counseling given: provider counseling and support medications Smoking risk assessment performed?: Yes Alcohol Intake: current Alcohol Intake frequency: 0-2 drinks per day Alcohol type: beer and hard liquor Counseling given: Yes Counseling provided: provider counseling and other Drug use: Daily Substance use type: marijuana, heroin, opiates, IV drugs, methamphetamine and other Details: fentanyl Counseling given: Yes Counseling provided: provider counseling Details: on suboxone, weaning Housing: homeless Number of Children: 3 Other: [facility] What type of physical activity do you participate in: none Drive intox or ride w/intox show horse driver: No Working smoke detector in home: Yes Carbon monox detector in home: Yes Do you feel safe at home: Yes Do you feel safe in your relationship?: Yes
[2024-01-08] MEDS: VANCOMYCIN 1,500 MG in Normal Saline 250 ML 166.6666 MG IVPB (23:10)
--- NOTE | 2024-01-08 23:22 | W.PM.HP.N ---
Date of service: 01/08/24 Time of Service: 23:22 Assessment and Plan Assessment and plan (1) Cutaneous abscess of right ankle: Status: Acute Assessment and plan: Wound culture was sent tonight and blood cultures pending from this morning, continue Cefepime and Vancomcyin started by the ED provider Monitor daily labs, fever curve Pain control w/ scheduled Tylenol and Toradol, prn oxycodone Podiatry consult on Wednesday regarding any need for further debridement and wound care of ankle abscess (2) Cellulitis and abscess of right leg: Status: Acute (3) Cellulitis of hand, right: Status: Acute Assessment and plan: Antibiotics as above (4) Cellulitis of left leg: Status: Acute Assessment and plan: Antibiotics as above (5) Alcohol withdrawal: Status: Acute Assessment and plan: continue monitor of CIWA/RASS and follow phenobarbital protocol Qualifiers: Complication of substance-induced condition: uncomplicated Qualified Code(s): F10.930 - Alcohol use, unspecified with withdrawal, uncomplicated (6) Opiate addiction: Status: Acute Assessment and plan: begin on clonidine and buprenorphine for impending withdrawal Qualifiers: Substance use status: uncomplicated Qualified Code(s): F11.20 - Opioid dependence, uncomplicated (7) Elevated transaminase level: Status: Acute Assessment and plan: probably d/t alcoholic hepatits however will check viral hepatitis panel (has been negative in past, see 11/08/22) (8) Unsheltered homelessness: Status: Acute Assessment and plan: Refer to case management. They have given him the number for [place] homeless custodial (9) Hyperglycemia: Status: Acute Assessment and plan: Patient has a prior history of DKA although does not have a chronic diagnosis of diabetes mellitus. His last glycohemoglobin A1c was 5.4% in October 2022. We will monitor his blood sugars before meals and at bedtime and cover with low-dose sliding scale as needed. He may be hyperglycemic from his infection once his infection comes under control his blood sugars may normalize. Goal will be for fasting glucose under 140 and all other blood sugars under 180. Will repeat her glycohemoglobin A1c in the morning History of Present Illness History of Present Illness Chief Complaint: right ankle pain and swelling Narrative: 38-year-old white male with a history of opioid use disorder, daily heroin use, occasional cocaine use, alcoholism who drinks between the fifth and a half a gallon of vodka daily last drink was around 6 AM who has a history of recurrent cellulitis from skin sores from sites where he shoots up. He presented emergency department earlier this morning with a 2-week history of skin sores over his legs with some purulent drainage and over the last 5 days had increased swelling and pain and redness of his right ankle. Evaluation in the emergency department this morning close CT scan of his right lower extremity that demonstrated an abscess but no osteomyelitis. He underwent incision and drainage and was treated with Zyvox and sent home on prescription of Bactrim. However he presented back to emergency department this evening with increasing pain, chills, fever and continued purulent drainage from his right ankle. Labs this evening continue to show a leukocytosis of 20,000 with a left shift similar to this morning's labs. He has a stable chronic anemia hemoglobin 12.5 g. This morning's blood lactate level is normal at 1.2 and has risen to 2.5. His chemistry panel showed normal renal function and elevated glucose of 194 and elevated transaminases in the low 100s and a procalcitonin level of 0.8. Blood cultures have been drawn earlier this morning but a wound culture was not obtained at the time of his incision and drainage procedure this morning. Wound culture has since been obtained this evening the patient has been started on cefepime and vancomycin. Hospitalist services been asked to admit him for parenteral antibiotics for impending sepsis from lower extremity cellulitis and right ankle abscess. [facility] All Active Problems (Updated 01/09/24 @ 01:49 by Miko Lazcano MD) Hyperglycemia (Acute) Opiate addiction (Acute) Leukocytosis (Acute) Alcohol withdrawal (Acute) Elevated transaminase level (Acute) Cellulitis of hand, right (Acute) Cellulitis of left leg (Acute) Cellulitis and abscess of right leg (Acute) Cutaneous abscess of right ankle (Acute) Abscess of right forearm (Acute) Hypocalcemia (Acute) Abscess of right arm (Acute) Acute thrombosis of right basilic vein (Acute) Cellulitis of arm, right (Acute) Fever (Acute) Acute Lyme disease (Acute) Duodenal ulcer disease (Acute) Alcohol withdrawal (Acute) Chronic calcific pancreatitis (Acute) Hepatic dysfunction (Acute) Abdominal pain (Acute) Nausea & vomiting (Acute) Fatty liver (Acute) IV drug user (Chronic) Alcohol abuse (Chronic) Transaminitis (Chronic) Gallbladder polyp (Acute) GI bleeding (Chronic) Dilated pancreatic duct (Acute) Opioid abuse (Chronic) Discharge planning issues (Acute) Thrombocytopenia (Chronic) Portal hypertensive gastropathy (Acute) Nicotine dependence (Acute) Unsheltered homelessness (Acute) Homelessness (Acute) Agitation (Acute) COVID-19 (Acute) Alcohol withdrawal (Acute) Acute pancreatitis (Acute) Duodenal mass (Acute) Alcoholism (Acute) Infected abrasion of skin of right ankle (Acute) Infected abrasion of skin of left ankle (Acute) Agitation (Acute) Polysubstance use disorder (Acute) Contusion of right knee (Acute) Lyme disease (Acute) Abrasion (Acute) Trauma (Acute) Inflammatory arthritis (Acute) Alcoholic ketoacidosis (Acute) Vomiting (Acute) Abdominal pain (Acute) Alcoholic ketoacidosis (Acute) Abdominal pain with vomiting (Acute) Depression with anxiety (Acute) Family history of schizophrenia (Chronic) Father Migraine with aura (Acute) Homeless (Acute) Alcoholic fatty liver (Acute) Severe depression (Chronic) Alcohol abuse (Chronic) Heroin abuse (Chronic) Elevated transaminase level (Acute) Chronic back pain (Chronic) Anxiety, generalized (Chronic) Medical History Duodenitis DKA (diabetic ketoacidosis) Pancreatitis History of alcohol abuse Depression Opiate addiction Surgical History No significant past surgical history No significant past surgical history Family History Mother Heart disease Asthma Father No problems noted. Sister Asthma Sister No problems noted. Brother No problems noted. Grandfather Essential hypertension Heart disease Asthma Grandfather Essential hypertension Heart disease Grandmother No problems noted. Grandmother No problems noted. Son No problems noted. Daughter No problems noted. Daughter Asthma Mother Heart disease Diabetes Father Heart disease Stroke Hypertension Self No problems noted. Sister Diabetes Hypertension Maternal Grandmother Cancer type Social History Smoking/Tobacco Use Status: Current every day Tobacco Type: cigarettes Smoking packs per day: 1 Smoking cigarettes per day: 20.0 Years smoked: 30 Smoking pack-years: 30.00 Counseling given: provider counseling and support medications Smoking risk assessment performed?: Yes Alcohol Intake: current Alcohol Intake frequency: 0-2 drinks per day Alcohol type: beer and hard liquor Counseling given: Yes Counseling provided: provider counseling and other Drug use: Daily Substance use type: marijuana, heroin, opiates, IV drugs, methamphetamine and other Details: fentanyl Counseling given: Yes Counseling provided: provider counseling Details: on suboxone, weaning Housing: homeless Number of Children: 3 Other: Lives alone in a tent in [facility] What type of physical activity do you participate in: none Drive intox or ride w/intox 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: No Working smoke detector in home: Yes Carbon monox detector in home: Yes Do you feel safe at home: Yes Do you feel safe in your relationship?: Yes Meds Allergies and Home Medications Allergies Allergy/AdvReac Type Severity Reaction Status Date / Time No Known Allergies Allergy Verified 01/08/24 06:20 Home Medications ?Medication ?Instructions ?Recorded ?Confirmed ?Type buprenorphine 4 mg-naloxone 1 mg 1 film sublingual DAILY 09/08/23 01/08/24 History sublingual film (Suboxone) sulfamethoxazole 800 1 tab PO BID 7 days #14 tabs 01/08/24 01/08/24 Rx mg-trimethoprim 160 mg tablet (Bactrim DS) Exam Narrative Exam Narrative: Unkempt middle-age white male who appears to be chronically ill with poor dentition he seems to be alert answering questions appropriately Neck supple nontender Lungs clear to auscultation Heart tachycardic but regular without murmur rub Abdomen scaphoid nontender, no palpable masses organomegaly, no visible sores over his chest or abdomen Extremities multiple scabs over both hands and arms. Both legs have ulcers left leg has an ulcer about the size of the half dollar over the mid medial tibia and he also has another ulcer down by the ankle. The right leg is erythematous and edematous from the foot to about two th[address] way up to the tibia he has open sore over the distal tibia as well as over the area below the medial malleolus which has been incised and drained. He has intact pedal pulses and capillary refills less than 3 seconds. Results Labs 01/08/24 21:35 01/08/24 21:35 Labs: Laboratory Results - last 24 hr 01/08/24 01/08/24 21:35 22:04 WBC 20.79 H RBC 3.95 L Hgb 12.5 L Hct 37.3 L MCV 94 MCH 31.6 MCHC 33.5 RDW 12.3 Plt Count 393 MPV 9.3 Immature Gran % 0.5 Neutrophils % 83.1 Lymphocytes % 10.3 Monocytes % 5.7 Eosinophils % 0.2 Basophils % 0.2 Nucleated RBC % 0.0 Absolute Neutrophils 17.28 H Absolute Lymphocytes 2.14 Absolute Monocytes 1.19 H Absolute Eosinophils 0.04 Absolute Basophils 0.04 VBG Lactate 2.5 H* Sodium 134 L Potassium 3.7 Chloride 97 L Carbon Dioxide 30.4 Anion Gap 6.6 BUN 13 Creatinine 0.9 Est GFR (CKD-EPI 2020) 110.73 Glucose 194 H Calcium 8.3 L Magnesium 1.9 Total Bilirubin 0.38 AST 102 H ALT 137 H Alkaline Phosphatase 132 H Creatine Kinase 103 Total Protein 7.8 Albumin 2.6 L Procalcitonin 0.8 Urine Opiates Screen Negative Urine Methadone Screen Negative Ur Barbiturates Screen Negative Ur Tricyclics Screen Negative Ur Amphetamines Screen Negative U Benzodiazepines Scrn Negative Urine Cocaine Screen Positive A Ur THC Screen Positive A Ethyl Alcohol < 3.0 Last Vital Signs Temp 36.9 C 01/08/24 20:22 Pulse 81 01/08/24 22:31 Resp 17 01/08/24 22:40 BP 106/71 01/08/24 22:31 Pulse Ox 100 01/08/24 21:50 Time Spent Time spent with Patient: 55-74 minutes Time was spent: preparing to see the patient(eg.review tests), ordering medications,tests, procedures, referring, communicating with other health critical care paramedic, indepentently interpreting results, counseling the patient and care coordination
[2024-01-09] VITALS (26 sets, daily range): BP systolic 107–131; BP diastolic 68–95; PULSE 55–84; RESP 13–30; TEMP 36.9–37.9; O2SAT 98–100
--- NOTE | 2024-01-09 00:25 | W.PC.ACHO ---
Registration Status: Primary Language: Preferred Language: ED Information & Data Chief Complaint GenMedical 01/08/24 23:02 Triage Note Pt arrives back to the ED 01/08/24 20:22 was seen earlier for same problem. Pt states he's feeling worse; now having nausea/vomiting and a fever. 4 mg Zofran ODT given by EMS Medical / Surgical History (Last Reviewed 11/11/23 @ 08:24 by Luis Hill MD) Duodenitis DKA (diabetic ketoacidosis) Pancreatitis History of alcohol abuse Depression Opiate addiction (Last Reviewed 11/11/23 @ 08:24 by Luis Hill MD) No significant past surgical history No significant past surgical history Most Recent Vital Signs Temperature 36.9 C 01/08/24 20:22 Temperature Source Oral 01/08/24 20:22 Pulse 81 01/08/24 22:31 Pulse 82 01/08/24 22:40 Respiratory Rate 17 01/08/24 22:40 Respiratory Effort Normal 01/08/24 20:33 Respiratory Depth Normal 01/08/24 20:33 Respiratory Pattern Normal 01/08/24 21:50 Blood Pressure 106/71 01/08/24 22:31 Blood Pressure Mean 82 01/08/24 22:31 Blood Pressure Position Supine 01/08/24 20:22 Pulse Oximetry 100 01/08/24 21:50 Oxygen Delivery Method Room Air 01/08/24 20:22 Oxygen Flow Rate 0 01/08/24 20:22 Pain Level 10 01/08/24 20:33 Allergies No Known Allergies Allergy (Verified 01/08/24 06:20) IV IV Catheter Type [Right Upper Peripheral IV arm] IV Catheter Gauge [Right Upper 18 arm] Diagnostics 01/08/24 01/08/24 Range/Units 22:04 21:35 WBC 20.79 H (4.4-10.8) 10^3/uL RBC 3.95 L (4.36-5.78) 10^6/uL Hgb 12.5 L (13.5-17.5) g/dL Hct 37.3 L (40.0-50.0) % MCV 94 (80-95) fL MCH 31.6 (27.0-33.0) pg MCHC 33.5 (32.0-36.0) % RDW 12.3 (11.8-14.1) % Plt Count 393 (130-400) 10^3/uL MPV 9.3 (8.0-11.0) fL Immature Gran % 0.5 % Neutrophils % 83.1 % Lymphocytes % 10.3 % Monocytes % 5.7 % Eosinophils % 0.2 % Basophils % 0.2 % Nucleated RBC % 0.0 (0.0-0.3) % Absolute Neutrophils 17.28 H (1.2-6.7) 10^3/uL Absolute Lymphocytes 2.14 (1.2-3.4) 10^3/uL Absolute Monocytes 1.19 H (0.1-0.8) 10^3/uL Absolute Eosinophils 0.04 (0.0-0.7) 10^3/uL Absolute Basophils 0.04 (0.0-0.2) 10^3/uL VBG Lactate 2.5 H* (0.6-1.4) mmol/L Sodium 134 L (136-145) mmol/L Potassium 3.7 (3.5-5.1) mmol/L Chloride 97 L (98-107) mmol/L Carbon Dioxide 30.4 (21.0-32.0) mmol/L Anion Gap 6.6 (3-11) mmol/L BUN 13 (7-18) mg/dL Creatinine 0.9 (0.70-1.30) mg/dL Est GFR (CKD-EPI 2020) 110.73 (mL/min/1.73m2) Glucose 194 H (74-106) mg/dL Calcium 8.3 L (8.5-10.1) mg/dL Magnesium 1.9 (1.8-2.4) mg/dL Total Bilirubin 0.38 (0.2-1.0) mg/dL AST 102 H (15-37) U/L ALT 137 H (16-63) U/L Alkaline Phosphatase 132 H (46-116) U/L Creatine Kinase 103 (39-308) U/L Total Protein 7.8 (6.4-8.2) g/dL Albumin 2.6 L (3.4-5.0) g/dL Procalcitonin 0.8 ng/mL Urine Opiates Screen Negative (Negative) Urine Methadone Screen Negative (Negative) Ur Barbiturates Screen Negative (Negative) Ur Tricyclics Screen Negative (Negative) Ur Amphetamines Screen Negative (Negative) U Benzodiazepines Scrn Negative (Negative) Urine Cocaine Screen Positive A (Negative) Ur THC Screen Positive A (Negative) Ethyl Alcohol < 3.0 (<10) mg/dL 01/08/24 21:35 Wound Culture - Pending Ankle - Right Gram Stain - Final Intake and Output - 24 Hour Total 01/08/24 20:18 thru 01/08/24 23:12 Intake Total 1152 Balance 1152 Weight 58.967 kg Intake: IV 1152 Falls Risk Assessment History of Falls No History 01/08/24 20:33 Contributing Factors No Factors 01/08/24 20:33 Ambulatory Aids Independent 01/08/24 20:33 Tubes/Lines None 01/08/24 20:33 Gait Evaluation No gait disturbance 01/08/24 20:33 Cognition No cognitive impairment 01/08/24 20:33 Fall Total Score 0 01/08/24 20:33 Level of Risk Standard/Low Risk 01/08/24 20:33 v v v v v v v v v Sending and/or Receiving Nurses: Please use comment section below to note any information pertinent to the patient hand-off not included above. Information / Comments: Cellulitis - seen this AM then DC'd home w/ PO abx. Took one dose. Symptoms (pain, swelling) worsened, pt returned. WBC and Lactate higher than this AM. Now septic but not in shock. Hx polysubstance abuse. Lesions t/o body ?from Xylazine, some scabbed, some raw. Posterior R calf wound w/ cellulitis. Last etoh 01/07 6am. Last IV drug use 01/06 (heroin). IV Abx for cellulitis administered in ED -- see eMAR. #18 R upper arm. CIWA 38 improved with first dose phenobarb, now 4. Was disoriented to date, now alert, oriented, calm. VS stable. Afebrile. Pt not opposed to going to rehab after medically cleared. Pt is unhoused, has been staying at the [facility] which he states is closing soon and he does not have anywhere to go. Pt states he has been to rehab before, is okay with going again, has experienced trauma/loss of a close friend recently, but, per Miko' report, is not expressing suicidal ideation. ?[facility] consult Report received from: Bisi Palmer RN 01/08/2024 @ 2331
[2024-01-09] MEDS: ACETAMINOPHEN 1,000 MG/100 ML BTL 400 MG IVPB ×4 (01:41→20:33)
[2024-01-09] MEDS: Ketorolac 15 MG/ML VIAL IVP ×4 (01:41→20:35)
[2024-01-09] MEDS: oxyCODONE 10 MG TAB PO ×5 (01:41→21:22)
[2024-01-09] MEDS: Normal Saline Flush 10 ML SYR IVP ×5 (01:42→20:34)
[2024-01-09] MEDS: Lactated Ringers 1,000 ML 150 ML IV (03:18)
[2024-01-09] MEDS: CEFEPIME 2 GM in Normal Saline 100 ML IVPB ×3 (06:39→22:01)
[2024-01-09 06:57] LABS: Abs Immature Grans 0.15 10^3/uL (0.0-0.06); Absolute Basophil Count 0.04 10^3/uL (0.0-0.2); Absolute Eosinophil Count 0.04 10^3/uL (0.0-0.7); Absolute Lymphocyte Count 2.71 10^3/uL (1.2-3.4); Absolute Monocyte Count 1.41 10^3/uL (0.1-0.8); Absolute Neutrophil Count 16.97 10^3/uL (1.2-6.7); Basophils % 0.2 %; Eosinophils % 0.2 %; HCT 34.4 % (40.0-50.0); HGB 11.7 g/dL (13.5-17.5); Immature Grans % 0.7 %; Lymphocytes % 12.7 %; MCV 94 fL (80-95); Monocytes % 6.6 %; Neutrophils % 79.6 %; Platelet Count 347 10^3/uL (130-400); RBC 3.66 10^6/uL (4.36-5.78); RDW 12.3 % (11.8-14.1); RDW-SD 42.6 fL; WBC 21.32 10^3/uL (4.4-10.8)
[2024-01-09 07:07] LABS: INR 1.1 (0.9-1.1); Prothrombin Time 10.7 sec (9.1-11.1)
[2024-01-09 07:14] LABS: ALT 104 U/L (16-63); AST 76 U/L (15-37); Albumin 2.2 g/dL (3.4-5.0); Alkaline Phosphatase 110 U/L (46-116); Anion Gap 9.1 mmol/L (3-11); BUN 5 mg/dL (7-18); CO2 24.9 mmol/L (21.0-32.0); CREATININE 0.8 mg/dL (0.70-1.30); Calcium 7.7 mg/dL (8.5-10.1); Chloride 103 mmol/L (98-107); Estimated GFR 114.74 (mL/min/1.73m2); Glucose 242 mg/dL (74-106); Hemoglobin A1C 6.5 % (<5.7); Magnesium 1.7 mg/dL (1.8-2.4); PHOSPHORUS 2.7 mg/dL (2.6-4.7); Potassium 3.3 mmol/L (3.5-5.1); Sodium 137 mmol/L (136-145); Total Protein 6.7 g/dL (6.4-8.2)
[2024-01-09] MEDS: Insulin Aspart 300 UNITS/3 ML PEN SC ×3 (08:00→22:15)
[2024-01-09] MEDS: Folic Acid 1 MG TAB PO (08:12)
[2024-01-09] MEDS: cloNIDine 0.1 MG TAB PO ×2 (08:12→20:47)
[2024-01-09] MEDS: Thiamine 100 MG TAB PO (08:13)
[2024-01-09] MEDS: Multivitamin TAB 1 TAB PO (08:13)
[2024-01-09] MEDS: Enoxaparin 40 MG/0.4 ML SYR SC (08:23)
--- NOTE | 2024-01-09 08:30 | NUR.NOTE ---
Patient refuses shower and a.m. hygiene interventions. Pateint does not want to be set up with facecloth and towel to perform moring ADLs.Nursing Note:
--- NOTE | 2024-01-09 08:34 | INITIAL_ITS ---
Date of service: 01/09/24 Time of Service: 08:34 Care Management Initial Assmt Initial Assessment Reason for Hospitalization: Alcohol Withdrawal Functional Status/Living Situation Patient Presentation: Jose was awake lying in bed when CM met with him. He is unkempt and has several scabs on his forearms. Jose reports that he has no family and all his friends are . She is crying when he talks about the recent loss of mother of his children from a OD. He shared that he tried to give her CPR after [place] the [place]. He shares with CM that he doesn''t feel he needs cou nseling, what he needs is meds. Jose shares that he has not seen his PCP in a long time, because he doesn't do anything for him. Pt verbalized to this freelance copywriter that he wants to go to inpatient treatment for substance abuse to lower his tolerance, so when he gets out he can 'use' and overdose. Per pt, he's been trying to overdose several times but can't because his tolerance is to high. As a result it costs him a lot of money, then he wakes up. Town of Residence: Homeless in [facility] Resides with: Alone Natural Supports: None Employment Status: Unemployed Instrumental Activities of Daily Living (ADLs): Independent Activities/Hobbies/SocialSupport: none, per pt Medications Medication Management: Issues/Barriers with Obtaining and Cost Physical Functioning/Mobility Assistive Device: None Advance Directives Advance Directives: Do you have an Advance Directive: N 11/08/22 07:52 AD On File at [facility]: N 11/08/22 07:52 Date Asked 12/09/23 12/09/23 11:17 AD Date Reviewed COLST On File at [facility] No 01/08/24 20:45 COLST Date Scanned Code Status Resuscitation Status Full Code Portal Pt does not currently have a portal and education provided: Yes Insurance Coverage/Financial Issues Insurance: Medicaid ACO Member: No Financial Issues: Homeless Care Team Visit Care Team Role Provider Type Joel Martinez DO Primary Care Provider OSTEOPATHIC DOCTOR Melina Clayton Other Providers HOOP COILING MACHINE OPERATOR JUAN JOSE ZendejasM Other Providers DPM [facility] STAFF PHYSICIAN Jessi Mosley Other Providers HOOP COILING MACHINE OPERATOR Rico Wang, GERALDO Other Providers CERT REG NURSE [employer] HR DEVELOPER Everardo Castillo, JUAN JOSEM Other Providers DPM [facility] STAFF PHYSICIAN Rhonda Kerns RN Other Providers HOOP COILING MACHINE OPERATOR Marta Arauz Other Providers OPERATION MANAGER Merlyn Fernando Other Providers HOOP COILING MACHINE OPERATOR GIACOMO Aquino Emergency Provider PHYSICIANS STRUCTURAL ANALYSIS ENGINEER Miko Lazcano MD Admit Provider [facility] STAFF PHYSICIAN Attending Provider Discharge Potential Discharge Needs: Consult ([facility], ) Anticipated Barriers to Discharge: Medical Status and SDOH Patient/Family Education Needs: Review discharge instructions, discuss Ask Me Three Plan: Pt endorses SI, CM contacted [facility], awaiting psych eval. Podiatry consult is planned for tomorrow, pt may require surgical intervention and Hvac Estimator IV ABX therapy. Cultures are pending. Discharge planning continues, CM will follow and support discharge planning considerations. PFSH All Active Problems (Updated 01/09/24 @ 01:49 by Miko Lazcano MD) Hyperglycemia (Acute) Opiate addiction (Acute) Leukocytosis (Acute) Alcohol withdrawal (Acute) Elevated transaminase level (Acute) Cellulitis of hand, right (Acute) Cellulitis of left leg (Acute) Cellulitis and abscess of right leg (Acute) Cutaneous abscess of right ankle (Acute) Abscess of right forearm (Acute) Hypocalcemia (Acute) Abscess of right arm (Acute) Acute thrombosis of right basilic vein (Acute) Cellulitis of arm, right (Acute) Fever (Acute) Acute Lyme disease (Acute) Duodenal ulcer disease (Acute) Alcohol withdrawal (Acute) Chronic calcific pancreatitis (Acute) Hepatic dysfunction (Acute) Abdominal pain (Acute) Nausea & vomiting (Acute) Fatty liver (Acute) IV drug user (Chronic) Alcohol abuse (Chronic) Transaminitis (Chronic) Gallbladder polyp (Acute) GI bleeding (Chronic) Dilated pancreatic duct (Acute) Opioid abuse (Chronic) Discharge planning issues (Acute) Thrombocytopenia (Chronic) Portal hypertensive gastropathy (Acute) Nicotine dependence (Acute) Unsheltered homelessness (Acute) Homelessness (Acute) Agitation (Acute) COVID-19 (Acute) Alcohol withdrawal (Acute) Acute pancreatitis (Acute) Duodenal mass (Acute) Alcoholism (Acute) Infected abrasion of skin of right ankle (Acute) Infected abrasion of skin of left ankle (Acute) Agitation (Acute) Polysubstance use disorder (Acute) Contusion of right knee (Acute) Lyme disease (Acute) Abrasion (Acute) Trauma (Acute) Inflammatory arthritis (Acute) Alcoholic ketoacidosis (Acute) Vomiting (Acute) Abdominal pain (Acute) Alcoholic ketoacidosis (Acute) Abdominal pain with vomiting (Acute) Depression with anxiety (Acute) Family history of schizophrenia (Chronic) Father Migraine with aura (Acute) Homeless (Acute) Alcoholic fatty liver (Acute) Severe depression (Chronic) Alcohol abuse (Chronic) Heroin abuse (Chronic) Elevated transaminase level (Acute) Chronic back pain (Chronic) Anxiety, generalized (Chronic) Medical History Duodenitis DKA (diabetic ketoacidosis) Pancreatitis History of alcohol abuse Depression Opiate addiction Surgical History No significant past surgical history No significant past surgical history Family History Mother Heart disease Asthma Father No problems noted. Sister Asthma Sister No problems noted. Brother No problems noted. Grandfather Essential hypertension Heart disease Asthma Grandfather Essential hypertension Heart disease Grandmother No problems noted. Grandmother No problems noted. Son No problems noted. Daughter No problems noted. Daughter Asthma Mother Heart disease Diabetes Father Heart disease Stroke Hypertension Self No problems noted. Sister Diabetes Hypertension Maternal Grandmother Cancer type Social History Smoking/Tobacco Use Status: Current every day Tobacco Type: cigarettes Smoking packs per day: 1 Smoking cigarettes per day: 20.0 Years smoked: 30 Smoking pack- years: 30.00 Counseling given: provider counseling and support medications Smoking risk assessment performed?: Yes Alcohol Intake: current Alcohol Intake frequency: 0-2 drinks per day Alcohol type: beer and hard liquor Counseling given: Yes Counseling provided: provider counseling and other Drug use: Daily Substance use type: marijuana, heroin, opiates, IV drugs, methamphetamine and other Details: fentanyl Counseling given: Yes Counseling provided: provider counseling Details: on suboxone, weaning Housing: homeless Number of Children: 3 Other: Lives alone in a tent in [facility] What type of physical activity do you participate in: none Drive intox or ride w/intox driver retraining instructor: No Working smoke detector in home: Yes Carbon monox detector in home: Yes Do you feel safe at home: Yes Do you feel safe in your relationship?: Yes SDOH(Care Management) Screening Will the Patient Participate in the Screening?: Yes Do you worry about having a steady place to live?: yes In the past 12 months, have you had to go without electric, gas, oil or water in your home?: yes Have you or anyone in your house had to go without enough food to eat?: yes Has lack of transportation kept you from medical appointments or from doing things needed for daily living?: yes Has anyone in your support network made you feel unsafe for any reason?: yes Social Determinants of Health Comments(SDOH Details): unhoused Health Related Social Needs Health related social needs: housing instability, housed, with risk of homelessness(Z59.811), food insecurity(Z59.41), transportation insecurity(Z59.82), material hardship(utilities)(Z59.87) and problem related to primary support group(Z63.9) Health related social needs details: homeless
--- NOTE | 2024-01-09 09:07 | W.PM.PROGNOT ---
Date of Service Date of service: 01/09/24 Time of Service: 09:07 Assessment and Plan Assessment and plan (1) Cutaneous abscess of right ankle: Status: Acute Assessment and plan: -Wound culture was sent tonight and blood cultures pending from AM 01/07 -started on Cefepime and Vancomcyin in ED, will continue -f/u AM CBC -Pain control w/ scheduled Tylenol and Toradol, prn oxycodone -Podiatry consult on Wednesday regarding any need for further debridement and wound care of ankle abscess (2) Cellulitis and abscess of right leg: Status: Acute Assessment and plan: -as noted above (3) Cellulitis of hand, right: Status: Acute Assessment and plan: Antibiotics as above (4) Cellulitis of left leg: Status: Acute Assessment and plan: Antibiotics as above (5) Alcohol withdrawal: Status: Acute Assessment and plan: -continue monitor of CIWA/RASS and follow phenobarbital protocol Qualifiers: Complication of substance-induced condition: uncomplicated Qualified Code(s): F10.930 - Alcohol use, unspecified with withdrawal, uncomplicated (6) Opiate addiction: Status: Acute Assessment and plan: -begin on clonidine -patient declined buprenorphine Qualifiers: Substance use status: uncomplicated Qualified Code(s): F11.20 - Opioid dependence, uncomplicated (7) Elevated transaminase level: Status: Acute Assessment and plan: -probably d/t alcoholic hepatits however will check viral hepatitis panel (has been negative in past, see 11/08/22) (8) Unsheltered homelessness: Status: Acute Assessment and plan: -Refer to case management. They have given him the number for [place] [facility] (9) Hyperglycemia: Status: Acute Assessment and plan: -Patient has a prior history of DKA although does not have a chronic diagnosis of diabetes mellitus. -last glycohemoglobin A1c was 5.4% in October 2022. -monitor his blood sugars before meals and at bedtime and cover with low-dose sliding scale as needed. -may be hyperglycemic from his infection once his infection comes under control his blood sugars may normalize. -Goal will be for fasting glucose under 140 and all other blood sugars under 180. -f/u repeat her glycohemoglobin A1c in the morning Subjective Subjective Interval history since last seen: Patient states that he is doing ok today. He understands the plan to continue broad spectrum antibiotics until culture results come back, and that he will be seen by podiatry tomorrow. Otherwise he has no complaints or concerns at this time. Exam Narrative Exam Narrative: Chronically ill appearing gentleman laying in bed, appears older then stated age, in no acute distress, AOx4, heart RRR, lungs CTAB, abdomen soft, non-tender, non-distended, multiple excoriations in various stages of healing over bilateral upper and lower extremities, wound to right lateral malleolus covered with bandage without surrounding erythema or drainage Objective Last Vital Signs Temp 98.4 F 01/09/24 07:43 Pulse 68 01/09/24 07:43 Resp 16 01/09/24 07:43 BP 122/82 01/09/24 07:43 Pulse Ox 100 01/09/24 07:43 Laboratory Results - last 24 hr 01/08/24 01/08/24 01/09/24 21:35 22:04 06:45 WBC 20.79 H 21.32 H RBC 3.95 L 3.66 L Hgb 12.5 L 11.7 L Hct 37.3 L 34.4 L MCV 94 94 MCH 31.6 32.0 MCHC 33.5 34.0 RDW 12.3 12.3 Plt Count 393 347 MPV 9.3 9.0 Immature Gran % 0.5 0.7 Neutrophils % 83.1 79.6 Lymphocytes % 10.3 12.7 Monocytes % 5.7 6.6 Eosinophils % 0.2 0.2 Basophils % 0.2 0.2 Nucleated RBC % 0.0 0.0 Absolute Neutrophils 17.28 H 16.97 H Absolute Lymphocytes 2.14 2.71 Absolute Monocytes 1.19 H 1.41 H Absolute Eosinophils 0.04 0.04 Absolute Basophils 0.04 0.04 PT 10.7 INR 1.1 VBG Lactate 2.5 H* 2.0 H Sodium 134 L 137 Potassium 3.7 3.3 L Chloride 97 L 103 Carbon Dioxide 30.4 24.9 Anion Gap 6.6 9.1 BUN 13 5 L Creatinine 0.9 0.8 Est GFR (CKD-EPI 2020) 110.73 114.74 Glucose 194 H 242 H Hemoglobin A1c 6.5 H Calcium 8.3 L 7.7 L Phosphorus 2.7 Magnesium 1.9 1.7 L Total Bilirubin 0.38 0.40 AST 102 H 76 H ALT 137 H 104 H Alkaline Phosphatase 132 H 110 Creatine Kinase 103 Total Protein 7.8 6.7 Albumin 2.6 L 2.2 L Procalcitonin 0.8 Urine Opiates Screen Negative Urine Methadone Screen Negative Ur Barbiturates Screen Negative Ur Tricyclics Screen Negative Ur Amphetamines Screen Negative U Benzodiazepines Scrn Negative Urine Cocaine Screen Positive A Ur THC Screen Positive A Ethyl Alcohol < 3.0 PAWSS Have you Been Recently Intoxicated or Drunk Within the Last 30 days?: Yes Have you Ever Experienced Previous Episodes of Alcohol Withdrawal?: Yes Have you ever Experienced Withdrawal Seizures?: Unable to Obtain Have you ever Experienced Delirium Tremens(DT)s?: Unable to Obtain Have you ever undergone Alcohol Rehabilitation Treatment (i.e, inpt ot outpatient treatment programs)?: Unable to Obtain Have you ever Experienced Blackouts?: Unable to Obtain Have you ever Combined Alcohol with other Downers within the last 90 days?: Unable to Obtain Have you ever Combined Alcohol with any other Substance of Abuse during the last 90 days?: Yes Positive Blood Alcohol level on Presentation? [PCS.BAL]: No Evidence of Increased Autonomic Activity (i.e. HR>120, tremor, sweating, agitation, nausea)?: No Result: 4 Time Spent with Patient Time Spent with Patient: >50 minutes Time was spent: preparing to see the patient(eg.review tests), obtaining and/or reviewing separately otained hiistory, ordering medications,tests, procedures, referring, communicating with other health intensive care medicine specialist, indepentently interpreting results, counseling the patient and care coordination
[2024-01-09] MEDS: VANCOMYCIN/WATER (PEG) 1 GM/200 ML BAG IVPB (11:21)
[2024-01-09] MEDS: PHENobarbital 130 MG/ML VIAL IVP ×2 (17:03→19:01)
[2024-01-09] MEDS: Nicotine 21 MG/24 HR PATCH TD (17:18)
--- NOTE | 2024-01-09 18:06 | CMSP_ITS ---
Date of service: 01/09/24 Time of Service: 16:00 Care Management Safety Plan Status Status: Voluntary Reason for Wait Reason for Wait: Inpatient Admission Safety Plan Safety Plan: VOLUNTARY FOR INPATIENT PSYCHIATRIC STABILIZATION. Patient is appropriate in all interactions since arriving at [facility]; Pt has demonstrated appropriate coping and communication skills, has articulated his or her needs and concerns and is fully engaged during staff interactions. Safety plan has been established with patient, and care team, to adhere to patient goals, identify restrictions based on behavioral status, address nutrition, and determine allowed personal belongings, tools for hygiene and personal care. Determine level of activity including ambulation, level of supervision, visitors, and determine privileges based on behaviors and level of engagement by pt. 01/09/24: Jose was screened by [facility] continuous improvement manager via zoom and is determined to be high risk for SI. He was later found to have a syringe in the ICU trying to inject one of the PO meds he had crushed. Concluding the huddle with , RN Mortar Mixer Operator, Primary RN and CM RN it was decided that a CPSO should remain in the patients room, providing 1:1 supervision until otherwise indicated. SAFETY PLAN: 1. Will remain on suicide precautions. In Paper Clothes 2. Will remain in room under direct supervision of one-on-one staff at all times provided by CPSO; ATIYA, MARKETING OPERATIONS ANALYST explosive operator supervisor. 3. May have paper cups, plates, finger foods as well as a cardboard spoon with which to eat meals. 4. Follow [facility] Management of the Admitted Behavioral Health Patient policy. 5. Comfort bath system only, shower permitted with escort at RN discretion. 6. No personal belongings-soft items permitted at RN discretion. 7. Visitors-none at this time. 8. Activities: soft cart items approved per RN discretion. 9. Bathroom privileges with escort in the ED, available in room without limitation on M/S. 10. Phone: contact limited to family at this time, via cordless phone at RN discretion. 11. Due to VOLUNTARY status, if patient wishes to leave [facility], staff will contact [facility] Crisis Screener ([phone]) and On-Call Molder Pipe Covering ([phone]) as soon as possible. In the event of elopement, notify [facility] Police ([phone]). Patient is currently voluntarily at [facility] and seeking inpatient admission when a bed becomes available. [facility] Frontline Submarine Cable Equipment Technician will continue seeking placement. Please contact the Type Mapper Molder Pipe Covering ([phone]) and [facility] Submarine Cable Equipment Technician ([phone]) for any needed changes in the Safety Plan. Safety plan has been provided to interdepartmental care team.
--- NOTE | 2024-01-09 21:09 | PDOC.MHCN ---
Date of service: 01/09/24 Time of Service: 16:30 PHQ-9 Over the last 2 weeks, how often have you been bothered by any of the following problems? 1. Little interest or pleasure in doing things: nearly every day 2. Feeling down, depressed, or hopeless: nearly every day 3. Trouble falling or staying asleep, or sleeping too much: nearly every day 4. Feeling tired or having little energy: nearly every day 5. Poor appetite or overeating: nearly every day 6. Feeling bad about yourself - or that you are a failure or have let yourself and your family down: nearly every day 7. Trouble concentrating on things, such as reading the newspaper or watching television: nearly every day 8. Moving or speaking so slowly that other people could have noticed? - Or the opposite - being so fidgety or restless that you have been moving around a lot more than usual: nearly every day 9. Thoughts that you would be better off or of hurting yourself in some way: nearly every day Total score: 27 If you checked off any problems, how difficult have these problems made it for you to do your work, take care of things at home, or get along with other people?: extremely difficult PHQ-9 Results: Positive Source: Developed by Drs. Arnulfo Bunn, Graciela Yang, Kevyn Terrell and colleagues, with an educational ines from [employer]. Suicide Severity Rate CSSRS Have you wished you were or wished you could go to sleep and not wake up?: Yes Have you actually had any thoughts of killing yourself?: Yes CSSRS2 Have you been thinking about how you might do this?: Yes Have you had these thoughts and had some intention of acting on them?: Yes Have you started to work out or worked out the details of how to kill yourself? Do you intend to carry out this plan?: Yes CSSRS3 Have you ever done anything, started to do anything or prepared to do anything to end your life?: Yes CSSRS4 Was this within the past three months?: Yes Screening Score Total Score: 8 Screening: Positive Mental Health Emergency Note Release [facility] release signed:: No Reason for Visit Client admitted in ICU, endorsing SI, High risk In the last 2 weeks has the pt presented for ES prior to today?: No Client Information Client is: New Well Housed: No,status: Homeless Safety Risk/Harm to Self or Others Current Ideation to Harm Self or Others: Yes to self. Intent: yes, has intent. Plan: yes,has a plan. Risk: Does risk to harm exist?: yes. Access to means: No. Risk: High Risk Asssessment/Mental Status Appearance: Disheveled Attitude: Cooperative Behavior: Agitated Speech: Soft and Hesitant Affect: Flat and Cogruent with mood Mood: Sad, Stressed and Depressed Thought process: Unremarkable Hallucinations: No evidence Delusions: No evidence Attention: Unremarkable Perception: Not impaired Orientation: Fully orientated Memory: Intact Insight: Poor Judgement: Poor Neurovegetative Symptoms Sleep: Decrease Appetitie: Decrease Interests: Decrease Energy: Decrease Libido: Not applicable Substance Use: ETOH dependence Drug Issues: Dependence (Client reports Heroin, crack cocaine ) Do you use nicotine?: Yes Have you used substances in the last 7 days?: yes, Heroin, Crack cocaine, ETOH Additional Issues: Medical Concerns: Yes Voluntarily presenting for services: Yes Impression Client is a 38 year old male presenting at [facility] ICU for crisis assessment via TVC due to reports of endorsing SI. Client is not medically cleared at this time for transportation and being treated medically per [facility] records for Cellulitis and abscess of right leg, Cellulitis of left leg, Cellulitis of hand, right, Elevated transaminase level, Alcohol withdrawal, Leukocytosis. Client presents with Co-Occurring dx reported chronic heroin use, crack cocaine and ETOH. Per [facility] records, VIV Kerns wants to go to inpatient treatment for substance abuse to lower his tolerance, so when he gets out he can 'use' and overdose. Per pt, he's been trying to overdose several times but can't because his tolerance is to high. As a result it costs him a lot of money, then he wakes up. During crisis assessment Client presents orientated across all spheres dress in hospital scrubs, denies HI reports SI, plan and intent, reported on Likert scale of intent being a 10 on scale 0/10 there's no reason for me to be here I'm living in my own purgatory Client reported acute distress associated with grief over girlfriend who passed via OD, client reported it just happened I found her in the field distress associated with grief of sister dying via OD, client has COD chronic SA use with Heroine, crack cocaine. Endorsing significant SI, reported plan to via OD. Ct reported PTSD symptoms i.e, nightmares, flashbacks, I cant sleep every time I close my eyes I see her, I see everything that's happened Client reported this is my hell, I'm a unhoused drug addict, my pain I hurt everyday, you are all so scared to , is a release and by me overdosing its the best way to go in my sleep. Client endorsing significant depressive symptoms scoring a 27 on the PHQ9 endorsing a major depressive episode, positive on the [place] for high risk. Client initially is apprehensive for voluntary treatment stating what's the point client in the pre-contemplative stage of recovery for RICKS. This keno writer / runner redirected client and discussed what client could possible obtain from voluntary, client stated talking does nothing for me, this keno writer / runner explored benefits of psychiatric consult and challenge client on with clients perspective on drugs being the only this that helped This keno writer / runner explored benefits if client were to consult legal vs illegal drugs, such as no bed sores, that client reported causing some physical distress. Client reported using illegal drugs to cope with pain client reported amendable to voluntary for psychiatric consult around possible treatment options for depression and SI. Client amendable to voluntary placement once medically cleared. This keno writer / runner collaborated with [facility] MD Dr. Vallejo, client should be EE should he attempt to leave or if to change mind due to inability to contract for safety. This keno writer / runner recommends utilizing empathic listening, reframing motivational interviewing with client during interactions. Plan/Disposition Recommended Disposition: Hospitalization (Initial assessment submitted to , [facility] [facility] [place] for when client is medically cleared.) facilities contacted. Plan: Once medically cleared client to present for voluntary inpatient psychiatric treatment, client should be EE should he attempt to leave AMA or if to change mind. Reports/communication Outcome discussed with: ED/Personnel (Dr. Vallejo, RN-VIV Ceballossenior architect/design manager )
[2024-01-10] VITALS (9 sets, daily range): BP systolic 100–132; BP diastolic 66–80; PULSE 48–71; RESP 18–28; TEMP 37.2–37.6; O2SAT 97–100
[2024-01-10] MEDS: VANCOMYCIN/WATER (PEG) 1 GM/200 ML BAG IVPB (00:07)
[2024-01-10] MEDS: ACETAMINOPHEN 1,000 MG/100 ML BTL 400 MG IVPB (01:48)
[2024-01-10] MEDS: Ketorolac 15 MG/ML VIAL IVP ×4 (01:49→20:00)
[2024-01-10] MEDS: oxyCODONE 10 MG TAB PO ×3 (01:50→09:32)
[2024-01-10] MEDS: Normal Saline Flush 10 ML SYR IVP ×4 (01:54→21:42)
[2024-01-10] MEDS: CEFEPIME 2 GM in Normal Saline 100 ML IVPB ×3 (06:14→23:38)
[2024-01-10] MEDS: Enoxaparin 40 MG/0.4 ML SYR SC (08:11)
[2024-01-10] MEDS: cloNIDine 0.1 MG TAB PO ×2 (08:12→20:00)
[2024-01-10] MEDS: Multivitamin TAB 1 TAB PO (08:12)
[2024-01-10] MEDS: Folic Acid 1 MG TAB PO (08:12)
[2024-01-10] MEDS: Thiamine 100 MG TAB PO (08:12)
--- NOTE | 2024-01-10 08:37 | PDOC.CMPRO ---
Date of service: 01/10/24 Time of Service: 08:37 Care Management Progress Note Progress Note Text Progress Note Text: Jose Alfredo was sitting up in a chair when CM met with him. He was agreeable to conversation and polite but did not fully engage. Jose Alfredo talked about his homelessness and the fact that he has not been able to secure housing for a long time. When asked about the new residential he stated he was told that he cannot stay there because they have another client that has a conflict of interest with him. He has also been evicted from the hotels provided by [facility] with vouchers and is not allowed back. Jose Alfredo talked about the fact that his girlfriend 2-3 weeks ago and that he found her in a field. They have one son together who is now with his grandmother. Jose Alfredo stated that he has no income and cannot get a traditional job because he can't wash his clothes, or shower. 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 CM offered to send a referral to [facility] for community case management and Jose Alfredo accepted the offer. Jose Alfredo has endorsed suicidal ideation and currently has a CPSO. He is not medically cleared although he was seen by a crisis screener yesterday who felt he would meet criteria for voluntary placement. Jose Alfredo was seen by Dr. Mcconnell today who, per nursing, plan to take him to the OR tomorrow for an I&D. Discharge Potential Discharge Needs: PCP F/U Appt (may need to re-establish with a PCP) Anticipated Barriers to Discharge: Bed availability Patient/Family Education Needs: Review discharge instructions, discuss Ask Me Three Transportation: Other (to be determined by disposition) Plan: Jose's discharge plan is unclear at this time. He is endorsing SI however he has medical issues as well. He will be screened by when medically cleared. SDOH(Care Management) Screening Will the Patient Participate in the Screening?: Yes Do you worry about having a steady place to live?: yes In the past 12 months, have you had to go without electric, gas, oil or water in your home?: yes Have you or anyone in your house had to go without enough food to eat?: yes Has lack of transportation kept you from medical appointments or from doing things needed for daily living?: yes Has anyone in your support network made you feel unsafe for any reason?: yes Social Determinants of Health Comments(SDOH Details): unhoused Health Related Social Needs Health related social needs: housing instability, housed, with risk of homelessness(Z59.811), food insecurity(Z59.41), transportation insecurity(Z59.82), material hardship(utilities)(Z59.87) and problem related to primary support group(Z63.9) Health related social needs details: homeless
--- NOTE | 2024-01-10 08:42 | PDOC.CMSAFE ---
Date of service: 01/10/24 Time of Service: 08:42 Care Management Safety Plan Status Status: Interim Reason for Wait Reason for Wait: Assessment/Screening Safety Plan Safety Plan: VOLUNTARY FOR INPATIENT PSYCHIATRIC STABILIZATION. Patient is appropriate in all interactions since arriving at [facility]; Pt has demonstrated appropriate coping and communication skills, has articulated his or her needs and concerns and is fully engaged during staff interactions. Safety plan has been established with patient, and care team, to adhere to patient goals, identify restrictions based on behavioral status, address nutrition, and determine allowed personal belongings, tools for hygiene and personal care. Determine level of activity including ambulation, level of supervision, visitors, and determine privileges based on behaviors and level of engagement by pt. 01/09/24: Jose was screened by [facility] email marketer via zoom and is determined to be high risk for SI. He was later found to have a syringe in the ICU trying to inject one of the PO meds he had crushed. Concluding the huddle with , RN Meter Reader Inspector, Primary RN and CM RN it was decided that a CPSO should remain in the patients room, providing 1:1 supervision until otherwise indicated. SAFETY PLAN: 1. Will remain on suicide precautions. In Paper Clothes 2. Will remain in room under direct supervision of one-on-one staff at all times provided by CPSO; ATIYA, ROLL SLICING MACHINE TENDER oracle ascp consultant. 3. May have paper cups, plates, finger foods as well as a cardboard spoon with which to eat meals. 4. Follow [facility] Management of the Admitted Behavioral Health Patient policy. 5. Comfort bath system only, shower permitted with escort at RN discretion. 6. No personal belongings-soft items permitted at RN discretion. 7. Visitors-none at this time. 8. Activities: soft cart items approved per RN discretion. 9. Bathroom privileges with escort in the ED, available in room without limitation on M/S. 10. Phone: contact limited to family at this time, via cordless phone at RN discretion. 11. Due to VOLUNTARY status, if patient wishes to leave [facility], staff will contact [facility] Crisis Screener ([phone]) and On-Call Cotton Washer ([phone]) as soon as possible. In the event of elopement, notify [facility] Police ([phone]). Patient is currently voluntarily at [facility] and seeking inpatient admission when a bed becomes available. [facility] Frontline Hoop Punch And Coiler Operator will continue seeking placement. Please contact the [employer] Supervisor Cotton Washer ([phone]) and [facility] Hoop Punch And Coiler Operator ([phone]) for any needed changes in the Safety Plan. Safety plan has been provided to interdepartmental care team.
--- NOTE | 2024-01-10 09:12 | PHACLINREV_ITS ---
Pharmacy Admission Review Admission Clinical Review Admission Pharmacy Review: Hyperglycemia (Acute) Opiate addiction (Acute) Alcohol withdrawal (Acute) Elevated transaminase level (Acute) Cellulitis of hand, right (Acute) Cellulitis of left leg (Acute) Cellulitis and abscess of right leg (Acute) Cutaneous abscess of right ankle (Acute) Unsheltered homelessness (Acute) No Known Allergies Allergy (Verified 01/08/24 06:20) Resuscitation Status Full Code Height 5 ft 6 in Weight 59.1 kg Comments Comments/Follow Ups: Cellulitis of hand and ankle Patient has history of several admissions, on Phenobarb protocol, due to low body weight, using actual weight 59.1kg for protocol (IBW 63.8)-MD aware, rec'd Phenobarb protocol and 2 prn doses, as of 01/10/24 he has reached soft stop of 886mg, hard stop is 1182mg. Positive drug screen for Cocaine/THC, CPSO for suicidal precautions, possible inpt placement Blood cultures from 01/08/24 no growth x48h, first Vanco level pending this AM Lower extremity CT shows abscess in right ankle-no signs of osteomyelitis, podiatry consult Pharmacy Admission Review Renal Dosing Renal Dosing: CrCl~102ml/min BUN 5 mg/dL (7-18) L 01/09/24 06:45 Creatinine 0.8 mg/dL (0.70-1.30) 01/09/24 06:45 Anticoagulation Anticoagulation: Hgb 11.7 g/dL (13.5-17.5) L 01/09/24 06:45 Hct 34.4 % (40.0-50.0) L 01/09/24 06:45 Plt Count 347 10^3/uL (130-400) 01/09/24 06:45 INR 1.1 (0.9-1.1) 01/09/24 06:45 Creatinine 0.8 mg/dL (0.70-1.30) 01/09/24 06:45 DVT Prophylaxis: Reviewed Medications: Enoxaparin Opiate Usage Evaluate Pain Scale/Pains Meds: Reviewed (Pain ranges 0-8, using many doses of Oxy IR) Scheduled Bowel Reg ordered if on Opiates?: No (will alert RN/MD) Relevant Labs Relevant Labs: Sodium 137 mmol/L (136-145) 01/09/24 06:45 Potassium 3.3 mmol/L (3.5-5.1) L 01/09/24 06:45 Chloride 103 mmol/L (98-107) 01/09/24 06:45 Phosphorus 2.7 mg/dL (2.6-4.7) 01/09/24 06:45 Magnesium 1.7 mg/dL (1.8-2.4) L 01/09/24 06:45 Electrolytes, C-Reactive P, ESR: Reviewed (Creatinine kinase elevated 103, ESR elevated 46, Lactate 1.2) DM Control DM Control: Reviewed (HgA1c....6.5) Insulin Dosing, Diabetic Medication: insulin aspart scale....FSBS ranges 120-340 Cardiac Review BP, HR, EF%: Reviewed (BP 106/66, HR 66) QTc Review QTc: Reviewed (QTC 434) IV to PO Switch IV Medications: Intervened (Toradol/Acetaminophen IV...will ask MD to change, taking other oral medications) Home Meds Home Med List reviewed: Reviewed (Was in the ED the day prior to admission, dispensed from our pharmacy Bactrim DS, BID x 7 days due to lack of access to retail pharmacy (banned from [facility], [facility] closed) Medication adherence barriers identified?: homeless Current Meds Current Medication Order Review: Reviewed (Clonidine and Buprenorphine) Pharmacy Antibiotic Review Relevant Labs: Procal 0.8, WBC 21.32, Temp slightly elevated Pharmacy Antibiotic Activity: 48 hour review (Vanco, Cefepime) Comments Comments/Follow Ups: Cellulitis of hand and ankle Patient has history of several admissions, on Phenobarb protocol, due to low body weight, using actual weight 59.1kg for protocol (IBW 63.8)-MD aware, rec'd Phenobarb protocol and 2 prn doses, as of 01/10/24 he has reached soft stop of 886mg, hard stop is 1182mg. Positive drug screen for Cocaine/THC, CPSO for suicidal precautions, possible inpt placement Blood cultures from 01/08/24 no growth x48h, first Vanco level pending this AM Lower extremity CT shows abscess in right ankle-no signs of osteomyelitis, podiatry consult
--- NOTE | 2024-01-10 09:45 | W.PM.PROGNOT ---
Date of Service Date of service: 01/10/24 Time of Service: 09:45 Assessment and Plan Assessment and plan (1) Cutaneous abscess of right ankle: Status: Acute Assessment and plan: -Wound culture was sent tonight and blood cultures pending from AM 01/07 -started on Cefepime and Vancomcyin in ED, will continue -f/u AM CBC -Pain control w/ scheduled Tylenol and Toradol, prn PO dilaudid -Podiatry consult; NPO at midnight with plan to go to OR tomorrow Wednesday 01/10 for right ankle washout (2) Cellulitis and abscess of right leg: Status: Acute Assessment and plan: -as noted above (3) Suicidal ideation: Status: Acute Assessment and plan: -On 01/08 patient expressed suicidal ideation with plan to Graphics Manager which prompted evaluation by [facility] who determined that the patient was severely depressed and suicidal -at this time the patient has expressed interest in going to Inpatient Psych upon discharge, HOWEVER, IF HE ATTEMPTS TO LEAVE AMA HE IS TO BE EE'D (4) Cellulitis of hand, right: Status: Acute Assessment and plan: Antibiotics as above (5) Hepatitis C: Status: Chronic Assessment and plan: -Hep pannel; checked again this hospitalization due to elevated LFTs -however, it appears that patient tested positive for Hepatitis C during previous hospitalization in August and it was not documented if the patient was made miranda -at this time, repeat Hep C antibody is reactive, but HCV RNA Qual/Quant is pending (previous 8,990,000) -once repeat Hep C RNA Qual/Quant has resulted, will reach out to [facility] for recommendations on treatment (6) Cellulitis of left leg: Status: Acute Assessment and plan: Antibiotics as above (7) Alcohol withdrawal: Status: Acute Assessment and plan: -continue monitor of CIWA/RASS and follow phenobarbital protocol Qualifiers: Complication of substance-induced condition: uncomplicated Qualified Code(s): F10.930 - Alcohol use, unspecified with withdrawal, uncomplicated (8) Opiate addiction: Status: Acute Assessment and plan: -begin on clonidine -patient declined buprenorphine Qualifiers: Substance use status: uncomplicated Qualified Code(s): F11.20 - Opioid dependence, uncomplicated (9) Unsheltered homelessness: Status: Acute Assessment and plan: -Refer to case management. They have given him the number for [facility] (10) Hyperglycemia: Status: Acute Assessment and plan: -Patient has a prior history of DKA although does not have a chronic diagnosis of diabetes mellitus. -last glycohemoglobin A1c was 5.4% in October 2022. -monitor his blood sugars before meals and at bedtime and cover with low-dose sliding scale as needed. -may be hyperglycemic from his infection once his infection comes under control his blood sugars may normalize. -Goal will be for fasting glucose under 140 and all other blood sugars under 180. Subjective Subjective Interval history since last seen: Patient states that he is doing well, though his pain medication regimen is not sufficient to control his pain. He understands that we may not be able to completely relief his pain but that we will attempt to significantly reduce it, as he states it is currently an 8/10. He also understands that he is going to the OR tomorrow to wash out his ankle, and expresses deep understanding of the importantce of not leaving AMA in order to receive appropriate antibiotics for his wound. Exam Narrative Exam Narrative: Chronically ill appearing gentleman laying in bed, appears older then stated age, in no acute distress, AOx4, heart RRR, lungs CTAB, abdomen soft, non-tender, non-distended, multiple excoriations in various stages of healing over bilateral upper and lower extremities, wound to right lateral malleolus covered with bandage without surrounding erythema or drainage Objective Last Vital Signs Temp 99.7 F H 01/10/24 09:01 Pulse 66 01/10/24 09:01 Resp 18 01/10/24 09:01 BP 106/66 01/10/24 09:01 Pulse Ox 99 01/10/24 09:01 PAWSS Have you Been Recently Intoxicated or Drunk Within the Last 30 days?: Yes Have you Ever Experienced Previous Episodes of Alcohol Withdrawal?: Yes Have you ever Experienced Withdrawal Seizures?: Unable to Obtain Have you ever Experienced Delirium Tremens(DT)s?: Unable to Obtain Have you ever undergone Alcohol Rehabilitation Treatment (i.e, inpt ot outpatient treatment programs)?: Unable to Obtain Have you ever Experienced Blackouts?: Unable to Obtain Have you ever Combined Alcohol with other Downers within the last 90 days?: Unable to Obtain Have you ever Combined Alcohol with any other Substance of Abuse during the last 90 days?: Yes Positive Blood Alcohol level on Presentation? [PCS.BAL]: No Evidence of Increased Autonomic Activity (i.e. HR>120, tremor, sweating, agitation, nausea)?: No Result: 4 Time Spent with Patient Time Spent with Patient: >50 minutes Time was spent: preparing to see the patient(eg.review tests), obtaining and/or reviewing separately otained hiistory, ordering medications,tests, procedures, referring, communicating with other health managed care specialist, indepentently interpreting results, counseling the patient and care coordination
[2024-01-10] MEDS: PHENobarbital 130 MG/ML VIAL IVP (10:05)
--- NOTE | 2024-01-10 10:06 | NUR.NOTE ---
Accessed chart to determine patient disposition for [facility] [place]. Call sent to ICU. Nursing Note:
[2024-01-10 10:13] LABS: HCT 38.2 % (40.0-50.0); HGB 12.9 g/dL (13.5-17.5); MCH 31.2 pg (27.0-33.0); MCHC 33.8 % (32.0-36.0); MCV 93 fL (80-95); MPV 9.1 fL (8.0-11.0); Platelet Count 434 10^3/uL (130-400); RBC 4.13 10^6/uL (4.36-5.78); WBC 13.76 10^3/uL (4.4-10.8)
[2024-01-10] MEDS: Polyethylene Glycol 3350 17 GM PACKET PO (10:17)
--- NOTE | 2024-01-10 10:24 | W.PODCONSULT ---
Date of service: 01/10/24 Time of Service: 09:30 Assessment and Plan Assessment and plan (1) Cellulitis of left leg: Status: Acute (2) Cellulitis and abscess of right leg: Status: Acute (3) Cutaneous abscess of right ankle: Status: Acute (4) Unsheltered homelessness: Status: Acute (5) Opioid abuse: Status: Chronic (6) IV drug user: Status: Chronic (7) Alcoholism: Status: Acute Assessment and plan: Patient was seen bedside today. Chart was reviewed. Labs and imaging reviewed white count noted to be trending down, at 13.[address] scan showed abscess to the right leg. On examination, patient has multiple wounds bilaterally at IV drug injection sites with severe pain on palpation. There is drainage noted to the dressings of the right leg wounds. There is severe tenderness to palpation and slight induration noted no crepitus no fluctuance at this time there is mild malodor noted. I recommend OR incision and drainage for bilateral lower extremity ulcers/abscess. Please continue antibiotics. Dressings applied today with Dakin's, dry sterile dressing Will plan for OR tomorrow around noon. Patient to be n.p.o. midnight tonight. History of Present Illness Narrative: 38-year-old white male with a history of opioid use disorder, daily heroin use, occasional cocaine use, alcoholism who drinks between the fifth and a half a gallon of vodka daily. He has a history of recurrent cellulitis from skin ulcers from drug injection sites. He presented emergency department on 01/08/24 with a 2-week history of skin sores over his legs with some purulent drainage with increased swelling, pain and redness of his right ankle as well as inability to weightbear. He states pain was so severe he was vomiting because of it. Rates initial pain as 15 and now the pain is 8/10. CT scan on 01/08/24 demonstrated an abscess but no osteomyelitis. He underwent incision and drainage in the ER and was treated with Zyvox and sent home on prescription of Bactrim. However he presented back to emergency department with increasing pain, chills, fever and continued purulent drainage from his right ankle. He states he is homeless and is unable to keep his wounds clean as he is unable to shower. States he is interested in drug rehab. Review of Systems Integumentary/Breasts Comments: Bilateral lower extremity ulcers PFSH All Active Problems Suicidal ideation (Acute) Hyperglycemia (Acute) Opiate addiction (Acute) Leukocytosis (Acute) Alcohol withdrawal (Acute) Elevated transaminase level (Acute) Cellulitis of hand, right (Acute) Cellulitis of left leg (Acute) Cellulitis and abscess of right leg (Acute) Cutaneous abscess of right ankle (Acute) Abscess of right forearm (Acute) Hypocalcemia (Acute) Abscess of right arm (Acute) Acute thrombosis of right basilic vein (Acute) Cellulitis of arm, right (Acute) Fever (Acute) Acute Lyme disease (Acute) Duodenal ulcer disease (Acute) Chronic calcific pancreatitis (Acute) Alcohol withdrawal (Acute) Agitation (Acute) Homelessness (Acute) Unsheltered homelessness (Acute) Nicotine dependence (Acute) Portal hypertensive gastropathy (Acute) Thrombocytopenia (Chronic) Discharge planning issues (Acute) Opioid abuse (Chronic) Dilated pancreatic duct (Acute) GI bleeding (Chronic) Gallbladder polyp (Acute) Transaminitis (Chronic) Alcohol abuse (Chronic) IV drug user (Chronic) Fatty liver (Acute) Nausea & vomiting (Acute) Abdominal pain (Acute) Hepatic dysfunction (Acute) COVID-19 (Acute) Alcohol withdrawal (Acute) Alcoholism (Acute) Duodenal mass (Acute) Acute pancreatitis (Acute) Infected abrasion of skin of right ankle (Acute) Infected abrasion of skin of left ankle (Acute) Agitation (Acute) Polysubstance use disorder (Acute) Contusion of right knee (Acute) Lyme disease (Acute) Trauma (Acute) Abrasion (Acute) Inflammatory arthritis (Acute) Vomiting (Acute) Alcoholic ketoacidosis (Acute) Abdominal pain (Acute) Alcoholic ketoacidosis (Acute) Abdominal pain with vomiting (Acute) Depression with anxiety (Acute) Family history of schizophrenia (Chronic) Father Migraine with aura (Acute) Homeless (Acute) Alcoholic fatty liver (Acute) Severe depression (Chronic) Anxiety, generalized (Chronic) Chronic back pain (Chronic) Elevated transaminase level (Acute) Heroin abuse (Chronic) Alcohol abuse (Chronic) Medical History Duodenitis DKA (diabetic ketoacidosis) Pancreatitis History of alcohol abuse Depression Opiate addiction Surgical History No significant past surgical history No significant past surgical history Family History Mother Heart disease Asthma Father No problems noted. Sister Asthma Sister No problems noted. Brother No problems noted. Grandfather Essential hypertension Heart disease Asthma Grandfather Essential hypertension Heart disease Grandmother No problems noted. Grandmother No problems noted. Son No problems noted. Daughter No problems noted. Daughter Asthma Mother Heart disease Diabetes Father Heart disease Stroke Hypertension Self No problems noted. Sister Diabetes Hypertension Maternal Grandmother Cancer type Social History Smoking/Tobacco Use Status: Current every day Tobacco Type: cigarettes Smoking packs per day: 1 Smoking cigarettes per day: 20.0 Years smoked: 30 Smoking pack-years: 30.00 Counseling given: provider counseling and support medications Smoking risk assessment performed?: Yes Alcohol Intake: current Alcohol Intake frequency: 0-2 drinks per day Alcohol type: beer and hard liquor Counseling given: Yes Counseling provided: provider counseling and other Drug use: Daily Substance use type: marijuana, heroin, opiates, IV drugs, methamphetamine and other Details: fentanyl Counseling given: Yes Counseling provided: provider counseling Details: on suboxone, weaning Housing: homeless Number of Children: 3 Other: Lives alone in a tent in the [facility] What type of physical activity do you participate in: none Drive intox or ride w/intox [id number] tank driver: No Working smoke detector in home: Yes Carbon monox detector in home: Yes Do you feel safe at home: Yes Do you feel safe in your relationship?: Yes Exam Extrem Other: Bilateral lower extremity physical exam: Derm: Full-thickness ulcers x 3 noted to the right leg above the level of the medial malleolus anteriorly and medially with mild periwound erythema there is brown thick purulence noted from the wound there is no bogginess appreciated however physical exam is limited due to pain present there is pain on palpation on the ulcers, no proximal streaking or lymphangitis no periwound crepitus or bogginess. 4 times ulcers x 2 to the left leg above the level of the medial malleolus with heavy eschar and tenderness to palpation with mild periwound erythema no drainage no malodor no crepitus no proximal streaking Vascular: Bilateral lower extremity close well-perfused Neuro: Light touch sensation intact Results Last Vital Signs Temp 99.7 F H 01/10/24 09:01 Pulse 66 01/10/24 09:01 Resp 18 01/10/24 09:01 BP 106/66 01/10/24 09:01 Pulse Ox 99 01/10/24 09:01 Labs 01/10/24 10:02 01/10/24 10:02 Labs: Laboratory Results - last 24 hr 01/10/24 10:02 WBC 13.76 H RBC 4.13 L Hgb 12.9 L Hct 38.2 L MCV 93 MCH 31.2 MCHC 33.8 RDW 12.0 Plt Count 434 H MPV 9.1 Imaging Imaging Studies: Patient Name: Jose Burns Unit #: [id number] Loc: ER Ordering Provider: Status: REG ER Primary Care Provider: Joel Martinez DO Date of Exam: 01/08/24 Sex: M : 1985 Age: 38 Exam(s) PROCEDURE INFORMATION: Exam: CT Right Lower Extremity With Contrast Exam date and time: 01/08/2024 8:23 AM Age: 38 years old Clinical indication: Other: Soft tissue infection R distal calf, prox ankle TECHNIQUE: Imaging protocol: CT of the right lower extremity with intravenous contrast was performed. Contrast material: OMNIPAQUE; Contrast volume: 100 ml; Contrast route: INTRAVENOUS (IV); COMPARISON: No relevant prior studies available. FINDINGS: Bones/joints: No bony destruction, periosteal reaction, acute osseous injury or significant osteoarthrosis. No significant joint effusion. Soft tissues: Soft tissue edema in visualized lower extremities, right greater than left. Poorly defined subcutaneous fluid and gas collection in anteromedial right ankle measures at least 3.4 x 1.1 x 3.4 cm. IMPRESSION: Moderate soft tissue edema. Poorly defined subcutaneous abscess anteromedial right ankle, 3.[address] evidence of osteomyelitis. Dictated and Authenticated by: Ry Warren MD.
[2024-01-10 10:26] LABS: Anion Gap 9.2 mmol/L (3-11); BUN 6 mg/dL (7-18); CO2 27.8 mmol/L (21.0-32.0); CREATININE 0.8 mg/dL (0.70-1.30); Calcium 8.4 mg/dL (8.5-10.1); Chloride 100 mmol/L (98-107); Estimated GFR 114.74 (mL/min/1.73m2); Glucose 237 mg/dL (74-106); Potassium 4.1 mmol/L (3.5-5.1); Sodium 137 mmol/L (136-145)
[2024-01-10 10:47] LABS: Vancomycin, Random 5.9 ug/mL
[2024-01-10 11:28] LABS: HBs Antibody, Qual Positive (See Note); HBs Antibody, Quant 150.7 mIU/mL (See Note); Hepatitis B Core Antibody Negative (Negative); Hepatitis B surface Ag Negative (Negative); Hepatitis C Ab w Rflx HCV PCR Reactive (Negative)
[2024-01-10 11:34] LABS: Lipase 17 U/L (16-77)
[2024-01-10] MEDS: VANCOMYCIN/WATER (PEG) 1.25 GM/250 ML BAG IVPB ×2 (12:21→21:19)
[2024-01-10] MEDS: Insulin Aspart 300 UNITS/3 ML PEN SC ×2 (12:21→23:48)
[2024-01-10] MEDS: HYDROmorphone 4 MG TAB PO ×3 (13:42→22:01)
[2024-01-10] MEDS: Acetaminophen 500 MG TAB 1000 MG PO ×2 (15:55→23:37)
[2024-01-10] MEDS: Nicotine 21 MG/24 HR PATCH TD (15:55)
--- NOTE | 2024-01-10 17:55 | NUR.NOTE ---
Edcuation provided on pain management. Patient informed this sign writer letterer or painter that he doesn't care about the non opiate pain management regime and that he will continue to ask for hydromorphone on the hour it is due. Patient states that he is a heroine addict and has no intention at this time of changing or seeking substance abuse assistance. He states that when he is released from the Hospital he intends to continue using Heroine and it was a stupid idea of this sign writer letterer or painter to even think he would be seeking help at this time. Patient is in a position of comfort, needs attended to, call doherty in reach
[2024-01-11] VITALS (16 sets, daily range): BP systolic 89–123; BP diastolic 44–85; PULSE 49–77; RESP 12–20; TEMP 36.4–37.7; O2SAT 95–100
[2024-01-11] MEDS: Ketorolac 15 MG/ML VIAL IVP ×2 (02:03→08:00)
[2024-01-11] MEDS: HYDROmorphone 4 MG TAB PO ×4 (02:03→15:55)
[2024-01-11] MEDS: VANCOMYCIN/WATER (PEG) 1.25 GM/250 ML BAG IVPB ×2 (04:22→12:23)
[2024-01-11 05:27] LABS: HCT 40.2 % (40.0-50.0); HGB 13.5 g/dL (13.5-17.5); MCH 31.3 pg (27.0-33.0); MCHC 33.6 % (32.0-36.0); MCV 93 fL (80-95); Platelet Count 394 10^3/uL (130-400); RBC 4.31 10^6/uL (4.36-5.78); RDW-SD 41.7 fL; WBC 14.68 10^3/uL (4.4-10.8)
[2024-01-11 05:37] LABS: Anion Gap 6.8 mmol/L (3-11); BUN 11 mg/dL (7-18); CO2 25.2 mmol/L (21.0-32.0); CREATININE 0.8 mg/dL (0.70-1.30); Calcium 8.3 mg/dL (8.5-10.1); Chloride 102 mmol/L (98-107); Estimated GFR 114.74 (mL/min/1.73m2); Glucose 184 mg/dL (74-106); Potassium 4.6 mmol/L (3.5-5.1); Sodium 134 mmol/L (136-145)
[2024-01-11] MEDS: Acetaminophen 500 MG TAB 1000 MG PO (05:53)
[2024-01-11] MEDS: CEFEPIME 2 GM in Normal Saline 100 ML IVPB (06:32)
[2024-01-11] MEDS: Normal Saline Flush 10 ML SYR IVP ×2 (07:59→11:34)
[2024-01-11] MEDS: cloNIDine 0.1 MG TAB PO (08:00)
[2024-01-11] MEDS: Thiamine 100 MG TAB PO (08:00)
[2024-01-11] MEDS: Folic Acid 1 MG TAB PO (08:01)
[2024-01-11] MEDS: Multivitamin TAB 1 TAB PO (08:01)
--- NOTE | 2024-01-11 08:31 | CMPROGNOTE_ITS ---
Date of service: 01/11/24 Time of Service: 08:31 Care Management Progress Note Progress Note Text Progress Note Text: This morning CANDICE was contacted by nursing staff regarding Jose Alfredo's safety plan. His Interim Safety Plan allowed for privileges to use a hospital portable phone to contact family members only. Unfortunately, Jose Alfredo had been allowed to keep his personal cell phone up to this point. His cell phone was removed from his possession based on hospital practice and the existing safety plan. Jose Alfredo became angry and agitated and threatened to leave AMA if his phone was not returned. A safety huddle was held and the issue was discussed at length. Participating in the huddle were Jacqueline, Nursing supervisor tan room, CANDICE Summers, Khadijah Ha, RN Nurse Educator and Queta RN. Per staff, the use of his cell phone has been very therapeutic for Jose Alfredo and nursing staff advocated strongly to return it to him. The Safety Plan was changed to allow Jose Alfredo to keep his cell phone. Additionally, Jose Alfredo shared with staff that he no longer feels suicidal. Mental Health was contacted and asked to do another screening. Jose Alfredo has been medically cleared and would be free to go to inpatient treatment if it were still deemed necessary and if a bed could be secured. Discharge Potential Discharge Needs: PCP F/U Appt Anticipated Barriers to Discharge: Medical Status Patient/Family Education Needs: Review discharge instructions, discuss Ask Me Three Transportation: RCT Plan: Jose's discharge plan is unclear at this time. He is currently denying SI and is medically cleared. He will be screened again by [facility] Crisis screener to determine if inpatient psychiatric treatment is still indicated and if he still requires a 1:1 sitter. SDOH(Care Management) Screening Will the Patient Participate in the Screening?: Yes Do you worry about having a steady place to live?: yes In the past 12 months, have you had to go without electric, gas, oil or water in your home?: yes Have you or anyone in your house had to go without enough food to eat?: yes Has lack of transportation kept you from medical appointments or from doing things needed for daily living?: yes Has anyone in your support network made you feel unsafe for any reason?: yes Social Determinants of Health Comments(SDOH Details): unhoused Health Related Social Needs Health related social needs: housing instability, housed, with risk of homelessness(Z59.811), food insecurity(Z59.41), transportation insecurity(Z59.82), material hardship(utilities)(Z59.87) and problem related to primary support group(Z63.9) Health related social needs details: homeless
--- NOTE | 2024-01-11 09:31 | W.PM.PROGNOT ---
Date of Service Date of service: 01/11/24 Time of Service: 09:31 Assessment and Plan Assessment and plan (1) Cutaneous abscess of right ankle: Status: Acute Assessment and plan: -Wound culture growing Strep Pyo and MRSA, blood cultures with no growth -started on Cefepime and Vancomcyin in ED; contiune vanc and DC cefepime based on wound culture results -f/u AM CBC -Pain control w/ scheduled Tylenol and Toradol, prn PO dilaudid -Podiatry consult; POD #1 right ankle washout, agrees with transitioning to PO linezloid for additional 7 days of antibiotic therapy (2) Cellulitis and abscess of right leg: Status: Acute Assessment and plan: -as noted above (3) Suicidal ideation: Status: Acute Assessment and plan: -On 01/08 patient expressed suicidal ideation with plan to Metallurgy Teacher which prompted evaluation by [facility] who determined that the patient was severely depressed and suicidal -at that time the patient has expressed interest in going to Inpatient Psych upon discharge, HOWEVER, IF HE ATTEMPTS TO LEAVE AMA HE IS TO BE EE'D -Twice during this hospitalization patient was found to have had syringe on his person and had injected himself with opiates -now that the patient is medically clear (with plan for PO antibiotics as noted above) he was again evaluated by [facility] who at this time states that the patient is to be formally EEed -will work on discharging to inpatient psych facility with Care Management tomorrow (4) Cellulitis of hand, right: Status: Acute Assessment and plan: Antibiotics as above (5) Hepatitis C: Status: Chronic Assessment and plan: -Hep pannel; checked again this hospitalization due to elevated LFTs -however, it appears that patient tested positive for Hepatitis C during previous hospitalization in August and it was not documented if the patient was made miranda -at this time, repeat Hep C antibody is reactive, but HCV RNA Qual/Quant is pending (previous 8,990,000) -once repeat Hep C RNA Qual/Quant has resulted, will reach out to [facility] for recommendations on treatment (6) Cellulitis of left leg: Status: Acute Assessment and plan: Antibiotics as above (7) Alcohol withdrawal: Status: Acute Assessment and plan: -continue monitor of CIWA/RASS and follow phenobarbital protocol Qualifiers: Complication of substance-induced condition: uncomplicated Qualified Code(s): F10.930 - Alcohol use, unspecified with withdrawal, uncomplicated (8) Opiate addiction: Status: Acute Assessment and plan: -begin on clonidine -patient declined buprenorphine Qualifiers: Substance use status: uncomplicated Qualified Code(s): F11.20 - Opioid dependence, uncomplicated (9) Unsheltered homelessness: Status: Acute Assessment and plan: -Refer to case management. They have given him the number for [place] [facility] (10) Hyperglycemia: Status: Acute Assessment and plan: -Patient has a prior history of DKA although does not have a chronic diagnosis of diabetes mellitus. -last glycohemoglobin A1c was 5.4% in October 2022. -monitor his blood sugars before meals and at bedtime and cover with low-dose sliding scale as needed. -may be hyperglycemic from his infection once his infection comes under control his blood sugars may normalize. -Goal will be for fasting glucose under 140 and all other blood sugars under 180. Subjective Subjective Interval history since last seen: Patient seen postoperatively and states that he is doing well. He understands the plan to wait for final cultures results. Exam Narrative Exam Narrative: Chronically ill appearing gentleman laying in bed, appears older then stated age, in no acute distress, AOx4, heart RRR, lungs CTAB, abdomen soft, non-tender, non-distended, multiple excoriations in various stages of healing over bilateral upper and lower extremities, right ankle in kuldip banage without surrounding erythema or drainage Objective Last Vital Signs Temp 97.5 F L 01/11/24 05:22 Pulse 54 L 01/11/24 05:22 Resp 18 01/11/24 05:22 BP 107/72 01/11/24 05:22 Pulse Ox 97 01/11/24 05:22 Laboratory Results - last 24 hr 01/09/24 01/10/24 01/10/24 06:45 10:02 10:07 WBC 13.76 H RBC 4.13 L Hgb 12.9 L Hct 38.2 L MCV 93 MCH 31.2 MCHC 33.8 RDW 12.0 Plt Count 434 H MPV 9.1 Sodium 137 Potassium 4.1 Chloride 100 Carbon Dioxide 27.8 Anion Gap 9.2 BUN 6 L Creatinine 0.8 Est GFR (CKD-EPI 2020) 114.74 Glucose 237 H Calcium 8.4 L Lipase 17 Random Vancomycin 5.9 Hep Bs Antigen Negative Hep Bs Antibody Positive Hep Bs Antibody, Quant 150.7 Hep B Core Total Ab Negative Hepatitis C Antibody Reactive A 01/11/24 05:17 WBC 14.68 H RBC 4.31 L Hgb 13.5 Hct 40.2 MCV 93 MCH 31.3 MCHC 33.6 RDW 12.0 Plt Count 394 MPV 9.0 Sodium 134 L Potassium 4.6 Chloride 102 Carbon Dioxide 25.2 Anion Gap 6.8 BUN 11 Creatinine 0.8 Est GFR (CKD-EPI 2020) 114.74 Glucose 184 H Calcium 8.3 L Lipase Random Vancomycin Hep Bs Antigen Hep Bs Antibody Hep Bs Antibody, Quant Hep B Core Total Ab Hepatitis C Antibody PAWSS Have you Been Recently Intoxicated or Drunk Within the Last 30 days?: Yes Have you Ever Experienced Previous Episodes of Alcohol Withdrawal?: Yes Have you ever Experienced Withdrawal Seizures?: Unable to Obtain Have you ever Experienced Delirium Tremens(DT)s?: Unable to Obtain Have you ever undergone Alcohol Rehabilitation Treatment (i.e, inpt ot outpatient treatment programs)?: Unable to Obtain Have you ever Experienced Blackouts?: Unable to Obtain Have you ever Combined Alcohol with other Downers within the last 90 days?: Unable to Obtain Have you ever Combined Alcohol with any other Substance of Abuse during the last 90 days?: Yes Positive Blood Alcohol level on Presentation? [PCS.BAL]: No Evidence of Increased Autonomic Activity (i.e. HR>120, tremor, sweating, agitation, nausea)?: No Result: 4 Time Spent with Patient Time Spent with Patient: >50 minutes Time was spent: preparing to see the patient(eg.review tests), obtaining and/or reviewing separately otained hiistory, ordering medications,tests, procedures, referring, communicating with other health hearing healthcare practitioner, indepentently interpreting results, counseling the patient and care coordination
--- NOTE | 2024-01-11 10:39 | W.NUTRFU ---
Date of service: 01/10/24 Time of Service: 09:30 Nutrition Note NOTE: Visited with Pt yesterday due to hx of homelessness, substance abuse, etoh abuse and documented weight loss of 9.6lbs since january 2023. Pt admitted for cellulitis and abscess of right leg, ankle. Pt on regular diet and tolerating well. He confirms weight loss although unsure of how much. NFPE not performed due to multiple skin infections/sores but notable is moderate scooping of the temporal region due to muscle loss as well as prominent zygomatic area. Pt reports waist size going from 32 to 28 over the last year. PT NPO after midnight and then OR tomorrow. kitchen staff alerted to offer 2 entrees if desired and pt intrerested in additional ONS for nutrition support - will add Boost nutrition drink to meal trays TID and resume once no longer npo. Will also trial whey protein smoothie at 2pm nourishment time. Attempted to explore resources with pt (comm connections, dennis javier [employer], etc) and he said he has tried every resource and nothing has helped. Pt with high FPG and A1C 15 was 6.5% - consistent with DMII Dx. Will continue to follow post-op, once diet resumes to offer education on glucose mgt but concerns of declining control with current [facility] status with housing, employment, etc... Time Spent in Nutritional Counseling and Treatment: 10 min
[2024-01-11 10:51] LABS: Vancomycin, Random 17.2 ug/mL
--- NOTE | 2024-01-11 11:30 | ANES.PREOP_ITS ---
General Info Date of Service Date Performed: 01/11/24 Height: 5 ft 6 in Weight: 56.2 kg Body Mass Index (BMI): 20.0 Surgical Procedure: Operation Date: 01/11/24 12:10 Proposed Procedure Side Surgeon p I&D Bi-Lat Ankles Bilateral Elisabet Mcconnell DPM [place] Allergies and Home Medications Allergies Allergy/AdvReac Type Severity Reaction Status Date / Time No Known Allergies Allergy Verified 01/08/24 06:20 Home Medication ?Medication ?Instructions ?Recorded buprenorphine 4 mg-naloxone 1 mg 1 film sublingual DAILY 09/08/23 sublingual film (Suboxone) sulfamethoxazole 800 1 tab PO BID 7 days #14 tabs 01/08/24 mg-trimethoprim 160 mg tablet (Bactrim DS) Current Visit Medications: Current Medications Generic Name Dose Route Start Last Admin Trade Name Freq PRN Reason Stop Dose Admin Acetaminophen 1,000 mg 01/10/24 09:50 01/11/24 05:53 Acetaminophen 500 Mg Tab PO 1,000 mg Q6H PRN PRN Administration Al Hydrox/Mg Hydrox/Simethicone 15 ml 01/09/24 01:23 01/10/24 11:43 Mylanta Double Strength Suspension 30 Ml Cup PO 15 ml Q2H PRN PRN Administration Buprenorphine HCl 4 mg 01/09/24 08:30 01/11/24 08:07 Buprenorphine 2 Mg Sublingual Tablet SL Not Given DAILY BLAS Clonidine 0.1 mg 01/09/24 08:30 01/11/24 08:00 Clonidine 0.1 Mg Tab PO 0.1 mg BID BLAS Administration Dextrose 0 gm 01/09/24 01:47 Glucose Oral Gel 15 Gm/37.5 Gm Tube PO DIRECTED PRN Dextrose/Water 0 gm 01/09/24 01:47 Dextrose 50%-Water 25 Gm/50 Ml Syr IVP DIRECTED PRN Docusate Sodium 100 mg 01/09/24 01:23 Docusate Sodium 100 Mg Cap PO TID PRN PRN Enoxaparin Sodium 40 mg 01/09/24 09:00 01/11/24 08:35 Enoxaparin 40 Mg/0.4 Ml Syr SC Not Given Q24H BLAS Folic Acid 1 mg 01/09/24 08:30 01/11/24 08:01 Folic Acid 1 Mg Tab PO 01/15/24 08:31 1 mg QAM BLAS Administration Hydromorphone HCl 4 mg 01/10/24 13:25 01/11/24 10:06 Hydromorphone 4 Mg Tab PO 4 mg Q4H PRN PRN Administration Vancomycin/PEG/NADA/Lysine/Water 1.25 gm in 250 mls @ 166.667 mls/hr 01/10/24 12:00 01/11/24 07:27 Vancocin Injection IVPB Infused Q8H BLAS Infusion IV Miscellaneous Supplies 1 each 01/09/24 01:23 Iv Access IV DIRECTED BLAS Insulin Aspart 0 units 01/09/24 08:00 01/11/24 07:26 Insulin Aspart 300 Units/3 Ml Pen SC Not Given 0800,1200,1700,2200 [facility] Protocol Ketorolac Tromethamine 15 mg 01/09/24 02:00 01/11/24 08:00 Ketorolac 15 Mg/Ml Vial IVP 01/13/24 01:59 15 mg Q6H BLAS Administration Magnesium Hydroxide 30 ml 01/09/24 01:23 Milk Of Magnesia 30 Ml Cup PO DAILY PRN PRN Multivitamins 1 tab 01/09/24 08:30 01/11/24 08:01 Multivitamin Tab PO 01/15/24 08:31 1 tab QAM BLAS Administration Nicotine 21 mg 01/09/24 01:23 01/10/24 15:55 Nicotine 21 Mg/24 Hr Patch TD 21 mg DAILY PRN PRN Administration Phenobarbital Sodium 130 mg 01/09/24 01:23 01/10/24 10:05 Phenobarbital 130 Mg/Ml Vial IVP 130 mg DIRECTED PRN Administration for mild anxiety/agitation Polyethylene Glycol 17 gm 01/09/24 01:23 01/10/24 10:17 Polyethylene Glycol 3350 17 Gm Packet PO 17 gm DAILY PRN PRN Administration Constipation Sodium Chloride 0 ml 01/09/24 01:23 01/10/24 11:59 Normal Saline Flush 10 Ml Syr IVP 40 ml PRN PRN Administration Sodium Chloride 0 ml 01/09/24 08:30 01/11/24 07:59 Normal Saline Flush 10 Ml Syr IVP 20 ml BID BLAS Administration Sodium Chloride 0 ml 01/09/24 01:23 Normal Saline 10 Ml Vial IJ DIRECTED PRN Sodium Hypochlorite 473 ml 01/10/24 09:00 Dakin's Solution 0.25% 473 Ml Btl TP DIRECTED BLAS Thiamine HCl 100 mg 01/09/24 08:30 01/11/24 08:00 Thiamine 100 Mg Tab PO 01/15/24 08:31 100 mg QAM BLAS Administration PFSH Active Problems Active Problems: Problem Status Onset Code Hepatitis C Chronic B19.20 Suicidal ideation Acute R45.851 Hyperglycemia Acute R73.9 Opiate addiction Acute F11.20 Leukocytosis Acute D72.829 Alcohol withdrawal Acute F10.939 Elevated transaminase level Acute R74.01 Cellulitis of hand, right Acute L03.113 Cellulitis of left leg Acute L03.116 Cellulitis and abscess of right leg Acute L03.115, L02.415 Cutaneous abscess of right ankle Acute L02.415 Abscess of right forearm Acute L02.413 Hypocalcemia Acute E83.51 Abscess of right arm Acute L02.413 Acute thrombosis of right basilic vein Acute I82.611 Cellulitis of arm, right Acute L03.113 Fever Acute R50.9 Acute Lyme disease Acute A69.20 Duodenal ulcer disease Acute K26.9 Alcohol withdrawal Acute F10.939 Chronic calcific pancreatitis Acute K86.1 Hepatic dysfunction Acute K76.9 Abdominal pain Acute R10.9 Nausea & vomiting Acute R11.2 Fatty liver Acute K76.0 IV drug user Chronic F19.90 Alcohol abuse Chronic F10.10 Transaminitis Chronic R74.01 Gallbladder polyp Acute K82.4 GI bleeding Chronic K92.2 Dilated pancreatic duct Acute K86.89 Opioid abuse Chronic F11.10 Discharge planning issues Acute Z02.9 Thrombocytopenia Chronic D69.6 Portal hypertensive gastropathy Acute K76.6, K31.89 Nicotine dependence Acute F17.200 Unsheltered homelessness Acute Z59.02 Homelessness Acute Z59.00 Agitation Acute R45.1 COVID-19 Acute U07.1 Alcohol withdrawal Acute F10.939 Acute pancreatitis Acute K85.90 Duodenal mass Acute K31.89 Alcoholism Acute F10.20 Infected abrasion of skin of right ankle Acute S90.511A, L08.9 Infected abrasion of skin of left ankle Acute S90.512A, L08.9 Agitation Acute R45.1 Polysubstance use disorder Acute F19.90 Contusion of right knee Acute S80.01XA Lyme disease Acute A69.20 Abrasion Acute T14.8XXA Trauma Acute T14.90XA Inflammatory arthritis Acute M19.90 Alcoholic ketoacidosis Acute E87.2 Vomiting Acute R11.10 Abdominal pain Acute R10.9 Alcoholic ketoacidosis Acute E87.2 Abdominal pain with vomiting Acute R10.9, R11.10 Depression with anxiety Acute F41.8 Family history of schizophrenia Chronic Z81.8 Migraine with aura Acute G43.109 Homeless Acute Z59.0 Alcoholic fatty liver Acute K70.0 Severe depression Chronic F32.2 Alcohol abuse Chronic F10.10 Heroin abuse Chronic F11.10 Elevated transaminase level Acute R74.0 Chronic back pain Chronic M54.9, G89.29 Anxiety, generalized Chronic F41.1 Medical History Medical History Duodenitis DKA (diabetic ketoacidosis) Pancreatitis History of alcohol abuse Depression Opiate addiction Surgical History Surgical History No significant past surgical history No significant past surgical history Tobacco Smoking/Tobacco Use Status: Current every day Tobacco Type: cigarettes Smoking packs per day: 1 Smoking cigarettes per day: 20.0 Years smoked: 30 Smoking pack- years: 30.00 Counseling given: provider counseling and support medications Alcohol Alcohol Intake: current Alcohol intake frequency: 0-2 drinks per day Alcohol type: beer and hard liquor Counseling provided: provider counseling and other Substance Use Substance use: Daily Substance use type: marijuana, heroin, opiates, IV drugs, methamphetamine and other Details: fentanyl Counseling provided: provider counseling Details: on suboxone, weaning Vital Signs and Lab Results Vital Signs Most Recent Vital Signs in EMR: Most Recent Vital Signs Temp Pulse Resp BP Pulse Ox 37.2 C 49 L 18 101/73 99 01/11/24 08:10 01/11/24 08:10 01/11/24 05:22 01/11/24 08:10 01/11/24 08:11 Point of Care Results Point of Care Results: Finger Stick Blood Glucose 122 01/11/24 07:26 Lab Results 01/11/24 05:17 01/11/24 05:17 Blood Type / Crossmatch: 2 No Data to Display Complete Blood Count: 2 White Blood Count 14.68 10^3/uL (4.4-10.8) H 01/11/24 05:17 Red Blood Count 4.31 10^6/uL (4.36-5.78) L 01/11/24 05:17 Hemoglobin 13.5 g/dL (13.5-17.5) 01/11/24 05:17 Hematocrit 40.2 % (40.0-50.0) 01/11/24 05:17 Platelet Count 394 10^3/uL (130-400) 01/11/24 05:17 Venous Blood Lactate 2.0 mmol/L (0.6-1.4) H 01/09/24 06:45 Complete Metabolic Panel: 2 Sodium 134 mmol/L (136-145) L 01/11/24 05:17 Potassium 4.6 mmol/L (3.5-5.1) 01/11/24 05:17 Chloride 102 mmol/L (98-107) 01/11/24 05:17 Carbon Dioxide 25.2 mmol/L (21.0-32.0) 01/11/24 05:17 BUN 11 mg/dL (7-18) 01/11/24 05:17 Creatinine 0.8 mg/dL (0.70-1.30) 01/11/24 05:17 Est GFR (CKD-EPI 2020) 114.74 (mL/min/1.73m2) 01/11/24 05:17 Magnesium 1.7 mg/dL (1.8-2.4) L 01/09/24 06:45 Calcium 8.3 mg/dL (8.5-10.1) L 01/11/24 05:17 Albumin 2.2 g/dL (3.4-5.0) L 01/09/24 06:45 Glucose 184 mg/dL (74-106) H 01/11/24 05:17 Hemoglobin A1c 6.5 % (<5.7) H 01/09/24 06:45 C-Reactive Protein 12.29 mg/dL (<or=0.5) H 01/08/24 06:28 Liver Function Panel: 2 Alanine Aminotransferase (ALT/SGPT) 104 U/L (16-63) H 01/09/24 06:45 Aspartate Amino Transf (AST/SGOT) 76 U/L (15-37) H 01/09/24 06: 45 Coagulation Panel: 2 INR International Normalized Ratio 1.1 (0.9-1.1) 01/09/24 06:4 5 Prothrombin Time 10.7 sec (9.1-11.1) 01/09/24 06:45 Cardiac Panel: 2 Creatine Kinase 103 U/L (39-308) 01/08/24 Arterial Blood Gas: 2 No Data to Display Venous Blood Gas: 2 No Data to Display Pancreas Panel: 2 Lipase 17 U/L (16-77) 01/10/24 10:07 Thyroid Panel: 2 No Data to Display Infectious Disease: 2 Hepatitis B Surface Antigen Negative (Negative) 01/09/24 06:45 Hepatitis C Antibody Reactive (Negative) A 01/09/24 06:45 Blood Cultures: 2 No Data to Display Toxicology Panel: 2 Ethyl Alcohol Level < 3.0 mg/dL (<10) 01/08/24 21:35 Urine Amphetamines Screen Negative (Negative) 01/08/24 22:04 Urine Benzodiazepines Screen Negative (Negative) 01/08/24 22:0 4 Urine Barbiturates Screen Negative (Negative) 01/08/24 22:04 Urine Cocaine Screen Positive (Negative) A 01/08/24 22:04 Urine Methadone Screen Negative (Negative) 01/08/24 22:04 Urine Opiates Screen Negative (Negative) 01/08/24 22:04 Ur Tricyclic Antidepressants Screen Negative (Negative) 22:04 Ur Tetrahydrocannabinol (THC) Scrn Positive (Negative) A 01/07 22:04 Imaging and Studies Imaging and Studies Study information below may be from another EMR and interpreted by another provider. Please see original notes in EMR for more complete details. EKG Summary: PATIENT NAME: Nino Madrid #: [id number] ORDERING PROVIDER: Lucius Randolph NPACCOUNT #: [id number] PRIMARY CARE PROVIDER: CEDRIC DATE/TIME OF SERVICE: 11/08/22837 : 1985PERFORMING LOCATION: ICU APPROVED REPORT Exam: Resting ECG Reason for Exam: nausea vomitting Patient Location: E HR:69 bpm ECG Measurements Heart Rate 69 AXIS TX 139 P 57 QRSd 85 QRS 82 QT 421 T73 QTc 451 Conclusion Sinus rhythm...normal P axis, V-rate 60- 99 Narrow complex normal sinus rhythm at a rate of 69. Normal axis. Intervals within normal limits. Concave upsloping ST segments in V2 and V3. T wave inversion in aVL. No ST segment depressions. No acute injury pattern. No prior for comparison. Anesthesia Assessment and Plan Anesthesia History Personal History: No History of Anesthesia Complications Family History: No Family History of Anesthesia Complications Exercise Tolerance Exercise Tolerance: Metabolic Equivalents>4 Pertinent Negatives Pertinent Negatives: No Symptoms of GERD, No Major Cardiovascular Symptoms or Complaints, No Major Pulmonary Symptoms or Complaints and No History of CVA/TIA Cardiac & Pulmonary Exam Cardiac Exam: Normal S1/S2 Heart Sounds Pulmonary Exam: Clear Bilateral Breath Sounds Implantable Cardiac Device Does patient have a Pacemaker or an ICD?: No Airway Exam Known Difficult Airway: No Mallampati Class: 2 Mouth Opening: Normal (> 3cm) Thyromental Distance: Greater than 3 cm Neck Range of Motion: Full ROM Neck Circumference: Normal Teeth Condition: Generalized Poor Dentition, Loose or Chipped (loose right upper canine), Dental Caries and Advised tooth loss possible given current condition (indicate tooth) ASA Classification ASA Score: ASA 2 Emergency Case?: No NPO Status NPO Status: NPO Clears >2 hours, Solids >8 hours Anesthesia Plan Resuscitation Status: Full Code Anesthesia Technique: General Anesthesia Airway Planned: LMA Monitors Used: Standard Monitors
[2024-01-11] MEDS: PHENobarbital 130 MG/ML VIAL IVP (11:33)
[2024-01-11] MEDS: Lactated Ringers 1,000 ML 30 ML IV (12:48)
[2024-01-11] MEDS: Lidocaine 1% Pres-Free 30 ML VIAL (12:53)
--- NOTE | 2024-01-11 13:09 | W.ANESVAS ---
Midline Placement Date Performed: 01/11/24 Procedure Time: 12:30 Requesting Provider: Rico Wnag Procedure Location: Operating Room Sedation Given (Indicate Dose Given): No Sedation given Patient Mental Status: Performed under general anesthesia Sterility: Hand Hygiene, Surgical Cap, Surgical Mask, Sterile Gloves and Chlorhexidine Laterality: Left Insertion Site: Basilic Midline Device: PowerGlide Pro 20G Catheter Length: 10 cm Midline Procedure Procedure: Vessel accessed with catheter over needle, Guidewire placed with ease, Catheter placed without resistance and Guidewire removed Dressing: Tegaderm Applied and Statlock Applied Blood Return: Present Flushes: Easily Ultrasound: Sterile probe cover and gel used Ultrasound Image Saved?: No Number of Attempts (See previous attempts in note section): 1 Procedure Tolerated: No Complications Procedure Outcome: Successful Procedure Comment:: Patient with very painful, red and slightly swollen IV site despite being patent. Patient yells in pain when IV is assessed or medications given. Once asleep midline placed. Performed By: Rico Wang
--- NOTE | 2024-01-11 13:57 | PDOC.CMSAFE ---
Date of service: 01/11/24 Time of Service: 13:57 Care Management Safety Plan Status Status: Voluntary Reason for Wait Reason for Wait: Inpatient Admission Safety Plan Safety Plan: Safety Plan: VOLUNTARY FOR INPATIENT PSYCHIATRIC STABILIZATION. Patient is appropriate in all interactions since arriving at [facility]; Pt has demonstrated appropriate coping and communication skills, has articulated his needs and concerns and is fully engaged during staff interactions. Safety plan has been established with patient, and care team, to adhere to patient goals, identify restrictions based on behavioral status, address nutrition, and determine allowed personal belongings, tools for hygiene and personal care. Determine level of activity including ambulation, level of supervision, visitors, and determine privileges based on behaviors and level of engagement by pt. 01/09/24: Jose was screened by [facility] billiard table repairer via zoom and is determined to be high risk for SI. He was later found to have a syringe in the ICU trying to inject one of the PO meds he had crushed. Concluding the huddle with , RN Final Assembly Inspector, Primary RN and CM RN it was decided that a CPSO should remain in the patients room, providing 1:1 supervision until otherwise indicated. 01/11/24: Jose went to the OR today and upon arrival a syringe was found in his bed by OR staff. This was addressed with him upon his return from the OR SAFETY PLAN: 1. Will remain on suicide precautions. In Paper Clothes 2. Will remain in room under direct supervision of one-on-one staff at all times provided by CPSO; ATIYA, M[employer] OFFICER window installation subcontractor. 3. May have paper cups, plates, finger foods as well as a cardboard spoon with which to eat meals. 4. Follow [facility] Management of the Admitted Behavioral Health Patient policy. 5. Comfort bath system only, shower permitted with escort at RN discretion. 6. No personal belongings-soft items permitted at RN discretion. 7. Visitors-none at this time. 8. Activities: soft cart items approved per RN discretion. 9. Bathroom privileges available in room without limitation. 10. Phone: may have personal cell phone per RN discretion. 11. Due to VOLUNTARY status, if patient wishes to leave [facility], staff will contact [facility] Crisis Screener ([phone]) and On-Call Nurse Transitional ([phone]) as soon as possible. In the event of elopement, notify [facility] Police ([phone]). Patient is currently voluntarily at [facility] and seeking inpatient admission when a bed becomes available. [facility] Frontline Lpn Care Manager will continue seeking placement. Please contact the Order Picker Nurse Transitional ([phone]) and [facility] Lpn Care Manager ([phone]) for any needed changes in the Safety Plan. Safety plan has been provided to interdepartmental care team.
--- NOTE | 2024-01-11 14:27 | W.ANESPOSTOP ---
Postoperative Evaluation Date, Time and Location Date Performed: 01/11/24 Time Performed: 13:55 Patient Location: PACU Vital Signs Most Recent Imported Vital Signs: Most Recent Vital Signs Temp Pulse Resp BP Pulse Ox 36.7 C 51 L 12 100/56 L 100 01/11/24 13:55 01/11/24 13:55 01/11/24 13:55 01/11/24 13:55 01/11/24 13:55 Pain Score Most Recent Pain Score: Most Recent Pain Score Pain Level 0 01/11/24 13:55 Assessment Mental Status: Awake (Alert & Oriented to Patient Baseline) Airway and Respiratory Function: Patent airway with normal (patient baseline) respiratory exam Cardiovascular Function: Hemodynamically Stable Hydration Status: Adequately Hydrated Nausea & Vomiting: No Nausea or Vomiting Pain: Pt. Denies Any Pain Peripheral Nerve Block: Patient did not receive a nerve block
--- NOTE | 2024-01-11 14:32 | W.PM.OP ---
Date of service: 01/11/24 Time of Service: 12:30 Operative Note Operative Note DATE OF PROCEDURE: 01/11/24 PRE-OP DIAGNOSIS: Abscess bilateral lower extremity POST-OP DIAGNOSIS: other (Ulcers with resolved abscess bilateral lower extremity) PROCEDURE: Incision and drainage and debridement bilateral ankle/lower extremity ulcers SURGEON: Elisabet Mcconnell ANESTHESIA TYPE: Local By Surgeon Refer to Anesthesia Record ESTIMATED BLOOD LOSS: 5 COMPLICATIONS: None Patient was transported to: PACU Patient's condition: stable Indications: This is a male patient with history of recurrent ulcers and abscesses secondary to IV drug abuse. Patient presented to the ED with lower extremity ulcers. Patient was seen in house on 01/10/2024 and consulted for bilateral lower extremity ulcers and infection. Patient was noted to have multiple lower extremity ulcers with draining abscess to the right ankle wound with severe pain. Decision was made for surgical intervention for incision and drainage and debridement of the abscess bilateral lower extremity ulceration. Patient understood and agreed. I discussed all risks benefits and possible complications of the procedure including but not limited to pain, nerve pain, bleeding, CRPS, need for further surgery or amputation, risk for DVT, PE, stroke, AL or with anesthesia. No contraindications to the procedure at this time. Procedure Description: Patient was identified and site was marked in preop holding. Consent form was signed reviewed in chart. Patient was brought to the operating placed on the operating table in supine position with the anesthesia team. After induction of general anesthesia bilateral lower extremity was then scrubbed prepped and draped in the usual aseptic manner. Timeout was carried out. An local anesthetic was injected to the right lower extremity casey ulceratively Attention was directed to the right lower extremity where a 6 wounds were noted just above the ankle joint 3 wounds were located medially 3 laterally. The wounds to the medial aspect with incision site visible from the ER I&D, the superiormost aspect ulceration there appears to be healing well with scabbing and necrotic tissue was debrided with sterile #15 blade. Just above the medial malleolus anteriorly there is a wound with nearly transverse incision done from the ER this is the location of most pain for the patient, and the incision site here was deepened using a sterile #15 blade and then the skin and subcutaneous tissue taking care to reflect and retract all vital neurovascular/tendinous structures, incision was deepened, no purulence was noted. The remaining ulcers were then debrided with a sterile #15 blade including the level of subcutaneous tissue all necrotic nonviable tissue was debrided and passed from the operative field. Attention was then directed to the left lower extremity where a 3 full-thickness ulcerations were noted with necrotic eschar and erythema which were debrided using a sterile #15 blade a linear longitudinal 1 cm incision was made to the most medial ulceration where some bogginess was noted incision was deepened through the skin and subcutaneous tissue no further necrosis or purulence was noted. The remaining ulcers were then debrided of all necrotic nonviable tissue using a sterile #15 blade. All the necrotic tissue was passed from the operative field. Patient The incision sites were then flushed with copious nonsterile saline. The the right ankle medial malleolus incision was then reapproximated using 3-0 nylon. The left ankle incision was left left open as this incision is small, patient has history of IV drug abuse and due to concerns of follow-up a decision was made to minimize suture material which has potential being about 10 mm of the foreign body/nidus for infection. Dressings were then applied with Xeroform gauze, 4 x 4, Kerlix and an Bolivar wrap. Patient tolerated the procedure and anesthesia well with vital signs stable neurovascular status intact to bilateral lower extremity. Patient was transferred to PACU for further monitoring. Be transferred to the floor when stable.
[2024-01-11] MEDS: Insulin Aspart 300 UNITS/3 ML PEN SC (17:06)
--- NOTE | 2024-01-11 19:34 | NUR.NOTE ---
In chart for participation in team plan and safety plan update this afternoon with hospitalist, care management, ICU director, Primary ICU nurse, ICU Nurse Educator, CNO, Nursing detasseling crew supervisor, and mental health. Patient verbalize he would absolutely leave and not be able to stay if he was not able to use his phone. Extensive discussion and consideration was given to patient's safety, medical, psychological, physical needs etc. Patient was verbalizing he is not suicidal and requested to be re-evaluated by mental health. Patient was increasingly asking to use his phone. He had used his phone prior in his stay and was appropriate with the use in listening to motivational videos or entertainment. Patient communicated and demonstrated that his cell phone use has been a helpful coping mechanism and demonstrated pacing, verbalizing anxiousness, and escalation after periods of being denied its use. Updated safety plan to allow patient to have his personal phone as his phone has been helpful to provide in patient being able to cope with his stay and receive medical care. Plan was communicated to the care team, patient, and a mental health re-consult was ordered. Nursing Note:
[2024-01-12 12:12] LABS: HCV RNA Detection Quantitative 7450000 IU/mL (Undetected); HCV RNA Qualitative Detected (Undetected)
--- NOTE | 2024-01-12 12:27 | NUR.NOTE ---
Accessed chart to reconcile [facility] EKG orders with [facility] EKG's in system. Duplicate order cancelled. Nursing Note:
--- NOTE | 2024-01-12 12:51 | W.PM.DS.N ---
Date of service: 01/12/24 Time of Service: 12:52 DS: Diagnosis Discharge Diagnosis (1) Cutaneous abscess of right ankle: Status: Acute (2) Cellulitis and abscess of right leg: Status: Acute (3) Suicidal ideation: Status: Acute (4) Cellulitis of hand, right: Status: Acute (5) Hepatitis C: Status: Chronic (6) Cellulitis of left leg: Status: Acute (7) Alcohol withdrawal: Status: Acute (8) Opiate addiction: Status: Acute (9) Unsheltered homelessness: Status: Acute (10) Hyperglycemia: Status: Acute Discharge Plan Disposition Patient Disposition: Against Medical Advice Condition: Fair Discharge Details Reason For Visit: right ankle cellulitis w/ abscess Admit Date/Time: 01/08/24 23:07 Admit Provider: Miko Lazcano Attending Provider: Miko Lazcano Primary Care Provider: Joel Martinez Hospital Course Hospital Course: 38 year old male with h/o polysubstance abuse admitted 01/08/24 with cellulitis RLE and right ankle cutaneous abcess. Patient treated initially with Vanco/cefepime, switched out to oral Linezolid on hospital day 4 after washout of ankle by Podiatry. Patient was also placed on Phenobarbital protocol for alcohol withdrawal. In meantime patient had been noted to be having suicidal ideation and, after evaluation by mental health, was here on voluntary status. However it was felt that if patient decided to leave that Law Enforcement should be notified and patient should be evaluated and placed on EE status. On the evening of hospital day 4 patient left AMA and Law Enforcement was notified per plan. This provider was notified at the time that mental health had not yet completed the EE process. Home Meds and New Rx's Prescriptions: No Action buprenorphine-naloxone [Suboxone] 4-1 mg film 1 film sublingual DAILY Patient Comments: Pt reports not taking sulfamethoxazole-trimethoprim [Bactrim DS] 800-160 mg tablet 1 tab PO BID 7 Days Qty: 14 0RF Discharge Data Discharge Date/Time-TO BE ENTERED AT DEPARTURE: 01/11/24 19:00 DS: Summary Time Spent with Patient providing and/or coordinating discharge services: Less than 30 minutes Status at Discharge Functional status at discharge: independent ambulation Overall status at discharge: other Mental Status: other Speech and Movement: other Mood: other Affect: other Quality:SDOH Health Related Social Needs: Health related social needs risk of homeless, food insecurity, transpo insecurity, material hardship, personal safety Health related social needs details homeless Health related social needs details: homeless Exam Psych Mental Status: other Speech and Movement: other Mood: other Affect: other DS: Data Vitals/I&O Vitals and I&O: Vital Signs Temperature 37.7 C H 01/11/24 17:00 Temperature Source Temporal Artery Scan 01/11/24 17:00 Pulse 77 01/11/24 17:00 Pulse Rhythm Regular 01/11/24 14:30 Pulse 65 01/11/24 13:56 Respiratory Rate 13 01/11/24 13:56 Respiratory Effort Normal 01/11/24 14:30 Respiratory Depth Normal 01/11/24 14:30 Respiratory Pattern Normal 01/11/24 14:30 Blood Pressure 123/85 01/11/24 17:00 Blood Pressure Mean 66 01/11/24 13:56 Blood Pressure Position Supine 01/08/24 20:22 Pulse Oximetry 99 01/11/24 17:00 Respiratory End-tidal CO2 31 01/11/24 13:56 Oxygen Delivery Method Room Air 01/11/24 17:00 Oxygen Flow Rate 0 01/11/24 17:00 Pain Level 9 01/11/24 15:55 Intake & Output 01/11/24 01/12/24 01/12/24 23:59 11:59 23:59 Intake Total 750 / 1300 Output Total 405 / 405 Balance 345 / 895 Intake: IV 750 / 1200 Output: Urine 400 / 400 Estimated Blood Loss 5 / 5 Other: Urine Color Straw Urine Appearance Clear Comment Voided in the urinal Stool Size Moderate Stool Characteristics Soft Brown Emesis Description None Data Completed and Pending Labs on day of discharge: 01/11/24 12:59 Ankle - Right Medial Surgical Culture - Pending 01/11/24 12:59 Ankle - Right Medial Anaerobic Culture - Pending Preliminary micro results at discharge 01/11/24 12:59 Surgical Culture - Pending Ankle - Right Medial 01/11/24 12:59 Anaerobic Culture - Pending Ankle - Right Medial PFSH All Active Problems (Updated 01/10/24 @ 13:28 by Garrick Vallejo MD) Hepatitis C (Chronic) Suicidal ideation (Acute) Hyperglycemia (Acute) Opiate addiction (Acute) Leukocytosis (Acute) Alcohol withdrawal (Acute) Elevated transaminase level (Acute) Cellulitis of hand, right (Acute) Cellulitis of left leg (Acute) Cellulitis and abscess of right leg (Acute) Cutaneous abscess of right ankle (Acute) Abscess of right forearm (Acute) Hypocalcemia (Acute) Abscess of right arm (Acute) Acute thrombosis of right basilic vein (Acute) Cellulitis of arm, right (Acute) Fever (Acute) Acute Lyme disease (Acute) Duodenal ulcer disease (Acute) Alcohol withdrawal (Acute) Chronic calcific pancreatitis (Acute) Hepatic dysfunction (Acute) Abdominal pain (Acute) Nausea & vomiting (Acute) Fatty liver (Acute) IV drug user (Chronic) Alcohol abuse (Chronic) Transaminitis (Chronic) Gallbladder polyp (Acute) GI bleeding (Chronic) Dilated pancreatic duct (Acute) Opioid abuse (Chronic) Discharge planning issues (Acute) Thrombocytopenia (Chronic) Portal hypertensive gastropathy (Acute) Nicotine dependence (Acute) Unsheltered homelessness (Acute) Homelessness (Acute) Agitation (Acute) COVID-19 (Acute) Alcohol withdrawal (Acute) Acute pancreatitis (Acute) Duodenal mass (Acute) Alcoholism (Acute) Infected abrasion of skin of right ankle (Acute) Infected abrasion of skin of left ankle (Acute) Agitation (Acute) Polysubstance use disorder (Acute) Contusion of right knee (Acute) Lyme disease (Acute) Abrasion (Acute) Trauma (Acute) Inflammatory arthritis (Acute) Alcoholic ketoacidosis (Acute) Vomiting (Acute) Abdominal pain (Acute) Alcoholic ketoacidosis (Acute) Abdominal pain with vomiting (Acute) Depression with anxiety (Acute) Family history of schizophrenia (Chronic) Father Migraine with aura (Acute) Homeless (Acute) Alcoholic fatty liver (Acute) Severe depression (Chronic) Alcohol abuse (Chronic) Heroin abuse (Chronic) Elevated transaminase level (Acute) Chronic back pain (Chronic) Anxiety, generalized (Chronic) Medical History Duodenitis DKA (diabetic ketoacidosis) Pancreatitis History of alcohol abuse Depression Opiate addiction Surgical History No significant past surgical history No significant past surgical history Family History Mother Heart disease Asthma Father No problems noted. Sister Asthma Sister No problems noted. Brother No problems noted. Grandfather Essential hypertension Heart disease Asthma Grandfather Essential hypertension Heart disease Grandmother No problems noted. Grandmother No problems noted. Son No problems noted. Daughter No problems noted. Daughter Asthma Mother Heart disease Diabetes Father Heart disease Stroke Hypertension Self No problems noted. Sister Diabetes Hypertension Maternal Grandmother Cancer type Social History Smoking/Tobacco Use Status: Current every day Tobacco Type: cigarettes Smoking packs per day: 1 Smoking cigarettes per day: 20.0 Years smoked: 30 Smoking pack-years: 30.00 Counseling given: provider counseling and support medications Smoking risk assessment performed?: Yes Alcohol Intake: current Alcohol Intake frequency: 0-2 drinks per day Alcohol type: beer and hard liquor Counseling given: Yes Counseling provided: provider counseling and other Drug use: Daily Substance use type: marijuana, heroin, opiates, IV drugs, methamphetamine and other Details: fentanyl Counseling given: Yes Counseling provided: provider counseling Details: on suboxone, weaning Housing: homeless Number of Children: 3 Other: Lives alone in a tent [facility] What type of physical activity do you participate in: none Drive 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
== END 2024-01-11 19:00 | disposition left against medical advice (07) | DRG 571 ==
LOC: ER 23:25 → ICU 01-09 01:02
PROVIDERS: Family Medicine; Podiatrist; Admitting Provider Internal Medicine; Emergency Provider Physician Assistant; PCP Family Medicine; Visit Provider Internal Medicine
PROC: 0JBN0ZZ Excision of Right Lower Leg Subcutaneous Tissue and Fascia, Open Approach (ICD-10-PCS; CPT 11042; principal; 2024-01-11 12:00)
DX: L02.415 Cutaneous abscess of right lower limb (principal); F10.230 Alcohol dependence with withdrawal, uncomplicated; L03.113 Cellulitis of right upper limb; F11.20 Opioid dependence, uncomplicated; Z59.02 Unsheltered homelessness; R45.851 Suicidal ideations; L02.413 Cutaneous abscess of right upper limb; K86.1 Other chronic pancreatitis; K76.6 Portal hypertension; L97.312 Non-pressure chronic ulcer of right ankle with fat layer exposed; L97.812 Non-pressure chronic ulcer of other part of right lower leg with fat layer exposed; L97.322 Non-pressure chronic ulcer of left ankle with fat layer exposed; L03.115 Cellulitis of right lower limb; L03.116 Cellulitis of left lower limb; D64.9 Anemia, unspecified; K26.9 Duodenal ulcer, unspecified as acute or chronic, without hemorrhage or perforation; D69.6 Thrombocytopenia, unspecified; F32.A Depression, unspecified; R73.9 Hyperglycemia, unspecified; F19.90 Other psychoactive substance use, unspecified, uncomplicated; R74.01 Elevation of levels of liver transaminase levels; F14.90 Cocaine use, unspecified, uncomplicated; D72.829 Elevated white blood cell count, unspecified; E83.51 Hypocalcemia; K31.89 Other diseases of stomach and duodenum; G43.109 Migraine with aura, not intractable, without status migrainosus; G89.29 Other chronic pain; M54.9 Dorsalgia, unspecified; F41.1 Generalized anxiety disorder; K70.0 Alcoholic fatty liver; F17.210 Nicotine dependence, cigarettes, uncomplicated; B18.2 Chronic viral hepatitis C; B95.0 Streptococcus, group A, as the cause of diseases classified elsewhere; B95.62 Methicillin resistant Staphylococcus aureus infection as the cause of diseases classified elsewhere
CPT/HCPCS: 36410; 11042; 00123; 36415; 80048; 80053; 80307; 82550; 83690; 84145; 85027; 86704; 86706; 86803; 87077; 87340; 87522; 93005; 96127; 96365; 96366; 96367; 96368; 99291; J1650; 80202; 80320; 83036; 83605; 83735; 84100; 85025; 85610; 87070; 87075; 87186; 87205; 93010; 99222; 99233; 99238; J0131; J0692; J1100; J1815; J1885; J2001; J2250; J2405; J2560; J2704; J3370; J3372; J3490

== ENCOUNTER 2024-04-02 09:38 | Emergency (ER) | payer MEDICAID, SELFPAY ==
[2024-04-02 09:43] VITALS: BP 109/71; PULSE 67; RESP 16; TEMP 36.6; O2SAT 99
--- NOTE | 2024-04-02 09:58 | W.ED.GENAD ---
Discharge Plan Disposition Patient Disposition: Home Condition: Stable Discharge Details Clinical Impression: Blunt trauma of multiple sites of trunk, Fracture of rib Primary Care Provider: Joel Martinez ED Provider: Alex Avendaño Home Meds and New Rx's Prescriptions: Discontinued buprenorphine-naloxone [Suboxone] 4-1 mg film 1 film sublingual DAILY Patient Comments: Pt reports not taking linezolid 600 mg tablet 600 mg PO Q12H Qty: 14 0RF Discharge Instructions Additional Instructions: You have nondisplaced rib fractures of your 10th and 11th ribs You can take 1000 mg of acetaminophen and 600 mg of ibuprofen every 6 hours as needed Follow-up with your primary care provider if not improving in 1 to 2 weeks If you feel more ill, or have new symptoms such as severe headaches or persistent vomiting return to the emergency department for reevaluation HPI General Mode of arrival: ambulatory. Date/Time Provider Initiated Documentation: 04/02/24 09:47. Limitations to Documentation: no limitations. Information obtained by: patient. History of Present Illness 39 year old M presents to the emergency department with the chief complaint of right flank and chest pain s/p fall 2 days ago, described as moderate, Quality is described as aching, Patient reports no radiation. Patient started experiencing this day(s) (2) and it has been constant. No relieving factors improve symptom(s), No exacerbating factors reported . Patient notes denies nausea/vomiting and syncope. Related Data Allergies Allergy/AdvReac Type Severity Reaction Status Date / Time No Known Allergies Allergy Verified 04/02/24 09:49 General Stated Complaint: Nk/Back Pain KAVEH: 4 Review of Systems All systems reviewed & are unremarkable except as noted in HPI and below Constitutional Constitutional: Denies chills, Denies fever(s) and Denies weakness Eyes Eyes: Denies loss of vision Cardiovascular Cardiovascular: Reports chest pain (s.p fall) Respiratory Respiratory: Denies cough Gastrointestinal Gastrointestinal: Denies vomiting Neurologic Neurologic: Denies loss of vision and Denies weakness Course Vital Signs Vital signs: Vital Signs Temperature 36.6 C 04/02/24 09:43 Pulse 67 04/02/24 09:43 Respiratory Rate 16 04/02/24 09:43 Blood Pressure 109/71 04/02/24 09:43 Pulse Oximetry 99 04/02/24 09:43 Temperature 36.6 C 04/02/24 09:43 Temperature Source Temporal Artery Scan 04/02/24 09:43 Pulse 67 04/02/24 09:43 Respiratory Rate 16 04/02/24 09:43 Respiratory Effort Normal 04/02/24 09:46 Blood Pressure 109/71 04/02/24 09:43 Blood Pressure Position Sitting 04/02/24 09:43 Pulse Oximetry 99 04/02/24 09:43 Oxygen Delivery Method Room Air 04/02/24 09:43 Oxygen Flow Rate 0 04/02/24 09:43 Pain Level 9 04/02/24 09:43 Medical Decision Making 39-year-old male with a history of substance abuse comes in after he states he tripped 2 days ago and fell down an embankment. He did not lose consciousness at that time. He comes in because he still has right-sided lateral chest pain and lower and upper mid back pain. Denies any head pain, neck pain or extremity pain. He is alert and oriented x 4 on arrival with no signs of trauma to the head. He has reproducible tenderness over the 4th through 6th ribs on the right side in the mid axillary line. No palpable or visible deformities. Clear lung sounds. Soft nontender abdomen. Does have some right lower back tenderness and also has tenderness over L4 and L5 and the lower thoracic spinous processes, no visible palpable deformities. Intact distal sensation and pulses in the legs. Suspect contusions but given continued pain will obtain CT chest abdomen pelvis to evaluate for fractures with recons of the thoracic and lumbar spines. Patient stable sitting in the chair eating cereal without distress. CT shows nondisplaced posterior right 10th and 11th rib fractures otherwise no acute findings. He is stable, will place a lidocaine patch and have him follow-up with PCP, return precautions given Differential Diagnosis Differential Diagnosis: Contusion, rib fracture, vertebral fracture Quality:SDOH Health Related Social Needs: Health related social needs risk of homeless, food insecurity, transpo insecurity, material hardship, personal safety Health related social needs details homeless PFSH All Active Problems (Updated 04/02/24 @ 12:29 by Alex Avendaño MD) Fracture of rib (Acute) Blunt trauma of multiple sites of trunk (Acute) Hepatitis C (Chronic) Suicidal ideation (Acute) Hyperglycemia (Acute) Opiate addiction (Acute) Leukocytosis (Acute) Alcohol withdrawal (Acute) Elevated transaminase level (Acute) Cellulitis of hand, right (Acute) Cellulitis of left leg (Acute) Cellulitis and abscess of right leg (Acute) Cutaneous abscess of right ankle (Acute) Abscess of right forearm (Acute) Hypocalcemia (Acute) Abscess of right arm (Acute) Acute thrombosis of right basilic vein (Acute) Cellulitis of arm, right (Acute) Fever (Acute) Acute Lyme disease (Acute) Duodenal ulcer disease (Acute) Alcohol withdrawal (Acute) Chronic calcific pancreatitis (Acute) Hepatic dysfunction (Acute) Abdominal pain (Acute) Nausea & vomiting (Acute) Fatty liver (Acute) IV drug user (Chronic) Alcohol abuse (Chronic) Transaminitis (Chronic) Gallbladder polyp (Acute) GI bleeding (Chronic) Dilated pancreatic duct (Acute) Opioid abuse (Chronic) Discharge planning issues (Acute) Thrombocytopenia (Chronic) Portal hypertensive gastropathy (Acute) Nicotine dependence (Acute) Unsheltered homelessness (Acute) Homelessness (Acute) Agitation (Acute) COVID-19 (Acute) Alcohol withdrawal (Acute) Acute pancreatitis (Acute) Duodenal mass (Acute) Alcoholism (Acute) Infected abrasion of skin of right ankle (Acute) Infected abrasion of skin of left ankle (Acute) Agitation (Acute) Polysubstance use disorder (Acute) Contusion of right knee (Acute) Lyme disease (Acute) Abrasion (Acute) Trauma (Acute) Inflammatory arthritis (Acute) Alcoholic ketoacidosis (Acute) Vomiting (Acute) Abdominal pain (Acute) Alcoholic ketoacidosis (Acute) Abdominal pain with vomiting (Acute) Depression with anxiety (Acute) Family history of schizophrenia (Chronic) Father Migraine with aura (Acute) Homeless (Acute) Alcoholic fatty liver (Acute) Severe depression (Chronic) Alcohol abuse (Chronic) Heroin abuse (Chronic) Elevated transaminase level (Acute) Chronic back pain (Chronic) Anxiety, generalized (Chronic) Medical History Duodenitis DKA (diabetic ketoacidosis) Pancreatitis History of alcohol abuse Depression Opiate addiction Surgical History No significant past surgical history No significant past surgical history Family History Mother Heart disease Asthma Father No problems noted. Sister Asthma Sister No problems noted. Brother No problems noted. Grandfather Essential hypertension Heart disease Asthma Grandfather Essential hypertension Heart disease Grandmother No problems noted. Grandmother No problems noted. Son No problems noted. Daughter No problems noted. Daughter Asthma Mother Heart disease Diabetes Father Heart disease Stroke Hypertension Self No problems noted. Sister Diabetes Hypertension Maternal Grandmother Cancer type Social History Smoking/Tobacco Use Status: Current every day Tobacco Type: cigarettes Smoking packs per day: 1 Smoking cigarettes per day: 20.0 Years smoked: 30 Smoking pack-years: 30.00 Counseling given: provider counseling and support medications Smoking risk assessment performed?: Yes Alcohol Intake: current Alcohol Intake frequency: 0-2 drinks per day Alcohol type: beer and hard liquor Counseling given: Yes Counseling provided: provider counseling and other Drug use: Daily Substance use type: marijuana, heroin, opiates, IV drugs, methamphetamine and other Details: fentanyl Counseling given: Yes Counseling provided: provider counseling Details: on suboxone, weaning Housing: homeless Number of Children: 3 Other: Lives alone [facility] a [facility] What type of physical activity do you participate in: none Drive 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
[2024-04-02] MEDS: Ketorolac 15 MG/ML VIAL IM (10:11)
--- NOTE | 2024-04-02 10:55 | DI.CT_ITS ---
Exam(s) CT CHEST/ABD/PEL WO CT THORACIC LUMBAR SPINE REC EXAM: CT CHEST/ABD/PEL WO CLINICAL HISTORY: right sided chest and flank pain s/p fall. TECHNIQUE: Imaging Protocol: Axial computed tomography images with coronal and sagittal reformatted images were created and reviewed Axial, coronal and sagittal images of the thoracic and lumbar spine were reconstructed from the chest abdomen pelvic CT utilizing soft tissue and bone algorithm. CONTRAST MATERIAL: Intravenous: Omnipaque 350 Contrast volume:100 ml Oral: no COMPARISON: CT CT ABDOMEN PELVIS W from 11/20/[address] THORACIC LUMBAR SPINE REC from 04/02/2024 FINDINGS: CHEST: Tracheobronchial tree: Patent. Pulmonary parenchyma: No consolidation or dominant measurable mass. Pleura: No effusion or pneumothorax. Mediastinum: Within normal limits. Aorta: Thoracic portion non-dilated. Pulmonary arteries: No visible emboli. Heart: No pericardial effusion. Mild coronary artery calcifications. Bones: Nondisplaced fracture of the proximal posterior right 10th and 11th ribs. No thoracic spine f racture. Soft tissues: Unremarkable. ABDOMEN and PELVIS: Liver: Normal density. No measurable mass. Gallbladder and biliary tract: Contracted. No evidence of stones or wall thickening. No biliary dil atation. Pancreas: Pancreatic calcifications. No acute inflammatory process. Pancreatic ductal dilatation, me asuring 10 millimeters.. Spleen: Normal. Kidneys: Normal size, contour and axis. No radiodense stones. No obstructive uropathy. No suspicious masses seen. Adrenal glands: No masses seen. Aorta: Abdominal portion non-dilated. Lymph nodes: Within normal limits. Soft tissues: Unremarkable. No paraspinal hematoma. Bladder: Unremarkable. Bowel: No obstruction or bowel wall thickening. Increased quantity of fecal material. Peritoneal cavity: No ascites. No focal collection. No mesenteric inflammatory response. No free ai r. Bones: No evidence spine or pelvic fracture. Reproductive organs: Within normal limits. IMPRESSION: Nondisplaced fractures of the proximal right 9th and 10th ribs. No acute posttraumatic abnormality in the abdomen or pelvis. Pancreatic calcifications consistent with prior episodes of pancreatitis. No acute inflammation. RADIATION DOSE DELIVERED: Total DLP DATA REPOSITORY: All CT scans at this facility are submitted to the National Radiology Data Registry (NRDR) Dose Index Registry (DIR) with the [employer] (ACR). RADIATION OPTIMIZATION: All CT scans at this facility use at least one of these dose optimization te chniques: automated exposure control; mA and/or kV adjustment per patient size (includes targeted exa ms where dose is matched to clinical indication); or iterative reconstruction.
--- NOTE | 2024-04-02 11:59 | DI.VRAD_ITS ---
PROCEDURE INFORMATION: Exam: CT Chest Without Contrast; Diagnostic Exam date and time: 04/02/2024 10:48 AM Age: 39 years old Clinical indication: Other: Right sided chest and flank pain S/P fall TECHNIQUE: Imaging protocol: Diagnostic computed tomography of the chest without contrast. 3D rendering (Not supervised by radiologist): MIP and/or 3D reconstructed images were created by the technologist. COMPARISON: CT CHEST/ABD/PEL W 05/08/2021 4:15 PM FINDINGS: Thyroid: Normal. No significant nodule or enlargement. Trachea: Normal. Lungs: Lungs are mildly emphysematous. No focal infiltrate or nodule. Pleural spaces: Unremarkable. No pneumothorax. No pleural effusion or thickening. Heart: No cardiomegaly. No pericardial effusion. Coronary arteries: Mild coronary artery calcification. Esophagus: No esophageal mass or wall thickening. No hiatal hernia. Mediastinal space: Normal. No mass or adenopathy. Lymph nodes: No enlarged mediastinal or axillary lymph nodes. Vasculature: Unremarkable. No aortic aneurysm. Bones/joints: There is a nondisplaced fracture of the right 10th posterior rib just beyond the costovertebral articulation. No bony trauma. Soft tissues: Unremarkable. Other findings: Visualized upper abdomen is unremarkable. IMPRESSION: Right posterior 10th rib fracture. No segmental fractures. No additional trauma. PROCEDURE INFORMATION: Exam: CT Abdomen And Pelvis Without Contrast Exam date and time: 04/02/2024 10:48 AM Age: 39 years old Clinical indication: Other: Right sided chest and flank pain S/P fall TECHNIQUE: Imaging protocol: Computed tomography of the abdomen and pelvis without contrast. 3D rendering (Not supervised by radiologist): MIP and/or 3D reconstructed images were created by the technologist. COMPARISON: CT ABDOMEN PELVIS W 11/20/2022 12:45 PM FINDINGS: Lungs: Visualized lung bases are clear. Liver: Normal. No mass or intrahepatic biliary ductal dilatation. Gallbladder and biliary ducts: Normal. No calcified stones. No ductal dilation. Pancreas: There are extensive pancreatic calcifications. No acute inflammatory changes seen at this time. No pancreatic mass or ductal dilatation. Spleen: Normal. No splenomegaly. Adrenal glands: Normal. No mass. Kidneys and ureters: Normal. No hydronephrosis, calculus, cyst or mass. Stomach and bowel: Stomach and small bowel are normal. There is relatively large amount of retained fecal material throughout the colon. Appendix: No evidence of appendicitis. Intraperitoneal space: Unremarkable. No free air. No significant fluid collection. Vasculature: Unremarkable. No abdominal aortic aneurysm or significant atherosclerosis. Lymph nodes: No enlarged retroperitoneal or mesenteric lymph nodes. Urinary bladder: No mass or wall thickening. Reproductive: Unremarkable as visualized. Bones/joints: Unremarkable. No acute fracture. No lytic lesion. Soft tissues: Unremarkable. IMPRESSION: No acute trauma in the abdomen or pelvis. Pancreatic calcifications have increased compared to previous exam but no sign of acute pancreatic inflammation. Dictated and Authenticated by: Angel Rivera MD. Ordering:PRATIK Johnson MD
--- NOTE | 2024-04-02 12:02 | DI.VRAD_ITS ---
PROCEDURE INFORMATION: Exam: CT Thoracic Spine Without Contrast Exam date and time: 04/02/2024 10:48 AM Age: 39 years old Clinical indication: Other: Right sided chest and flank pain S/P fall TECHNIQUE: Imaging protocol: Computed tomography of the thoracic spine without contrast. COMPARISON: CT CHEST/ABD/PEL WO 04/02/2024 10:48 AM FINDINGS: Bones/joints: Thoracic vertebral bodies are normal in height and alignment with no acute fracture. There are nondisplaced fractures of the right 10th and 11th posterior ribs just distal to the costovertebral articulations. Posterior elements of the vertebrae are intact. No disc space narrowing or significant spurring. Soft tissues: Unremarkable. IMPRESSION: No acute thoracic spine trauma. There are nondisplaced fractures of the right 10th and 11th posterior ribs. PROCEDURE INFORMATION: Exam: CT Lumbar Spine Without Contrast Exam date and time: 04/02/2024 10:48 AM Age: 39 years old Clinical indication: Other: Right sided chest and flank pain S/P fall TECHNIQUE: Imaging protocol: Computed tomography of the lumbar spine without contrast. COMPARISON: CT CHEST/ABD/PEL WO 04/02/2024 10:48 AM FINDINGS: Bones/joints: Lumbar vertebra are normal in height and alignment with no fracture. Disc spaces are well-maintained. Posterior elements and transverse processes are intact. Soft tissues: Unremarkable. IMPRESSION: No acute findings. Dictated and Authenticated by: Angel Rivera MD. Ordering:PRATIK Johnson MD
[2024-04-02 12:55] VITALS: BP 106/68; PULSE 66; RESP 16; TEMP 36.5; O2SAT 96
[2024-04-02] MEDS: Lidocaine 5% Patch 1 PATCH TP (12:55)
== END 2024-04-02 14:47 | disposition home or self-care (01) ==
PROVIDERS: Emergency Provider Emergency Medicine; PCP Family Medicine
DX: S22.41XA Multiple fractures of ribs, right side, initial encounter for closed fracture (principal); S20.211A Contusion of right front wall of thorax, initial encounter; W17.81XA Fall down embankment (hill), initial encounter
CPT/HCPCS: 71250; 96372; 99285; 74176; 99283; J1885

== ENCOUNTER 2024-05-10 09:48 | Emergency (ER) | payer MEDICAID, SELFPAY ==
[2024-05-10 09:59] VITALS: BP 129/77; PULSE 88; RESP 18; TEMP 36.5; O2SAT 98
--- NOTE | 2024-05-10 10:44 | W.ED.GENAD ---
Discharge Plan Discharge Details Chief Complaint: PsychEval Clinical Impression: Depression, Homeless, Feeling like committing suicide, Moderate substance use disorder Primary Care Provider: Joel Martinez ED Provider: Jarrod Vaughn Home Meds and New Rx's Prescriptions: No Action No Known Home Meds HPI General Date/Time Provider Initiated Documentation: 05/10/24 09:58. HPI Narrative: 39-year-old male with a past medical history of hepatitis C, history of illicit drug use, depression, alcohol abuse with withdrawals and seizures, depression, opiate addiction, who is currently homeless who presents today seeking help for depression and withdrawal symptoms. 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 He had been a chronic alcoholic, but then developed chronic pancreatitis because of this. He then transition to fentanyl because he could no longer drink. He states that his life has spiraled now and he is homeless, a junky, and on a spiral downwards. He found his significant other in the field a few months ago, and is not been coping well. He is regularly been using heroin, crack and meth ever since. He has been drinking 1/5 every day, and states that he wants to end his life. He states he has tried to overdose multiple times but has not been able to kill himself. He states that if he could not kill himself that way he will kill himself by slitting his wrists or walking into traffic or jumping off a bridge. He did get admitted to a mental health facility 9 years ago which was helpful. He denies any other complaints at this time. No other modifying factors. Related Data Home Medications ?Medication ?Instructions ?Recorded ?Confirmed Unknown [No Known Home Meds] 05/10/24 05/10/24 Allergies Allergy/AdvReac Type Severity Reaction Status Date / Time No Known Allergies Allergy Verified 05/10/24 10:06 General Stated Complaint: PsychEval KAVEH: 2 Review of Systems All systems reviewed & are unremarkable except as noted in HPI and below Exam Narrative Exam Narrative: 1.Const: Well-nourished, Well-developed, appearing stated age 2.Eyes: PERRL, no conjunctival injection, and symmetrical lids. 3.ENT: Atraumatic external nose and ears. Moist MM. Neck: Symmetric, trachea midline, No thyromegaly. 4.CVS: +S1/S2, Peripheral pulses 2+ and equal in all extremities. Brisk capillary refill in all extremities. 5.RESP: Unlabored respiratory effort. Clear to auscultation bilaterally. No wheezes rales or rhonchi 6.GI: Soft, Nontender/Nondistended, No hepatosplenomegaly. No guarding or rebound. 7.MSK: Normocephalic/Atraumatic, Extremities w/o deformity or ttp No cyanosis or clubbing, Normal movement of all extremities 8.Skin: Warm, Dry. No rashes or lesions. Disheveled. 9.Neuro: english tutor II-XII grossly intact. Sensation grossly intact, no focal neurologic deficits. 10.Psych: (AAO) x3. Depressed, diminished affect Course Vital Signs Vital signs: Vital Signs Temperature 36.5 C 05/10/24 09:59 Pulse 88 05/10/24 09:59 Respiratory Rate 18 05/10/24 09:59 Blood Pressure 129/77 05/10/24 09:59 Pulse Oximetry 98 05/10/24 09:59 Temperature 36.5 C 05/10/24 09:59 Pulse 88 05/10/24 09:59 Respiratory Rate 18 05/10/24 09:59 Respiratory Effort Normal 05/10/24 10:05 Blood Pressure 129/77 05/10/24 09:59 Pulse Oximetry 98 05/10/24 09:59 Pain Level 7 05/10/24 09:59 Medical Decision Making 39-year-old male with a past medical history of hepatitis C, history of illicit drug use, depression, alcohol abuse with withdrawals and seizures, depression, opiate addiction, who is currently homeless who presents today seeking help for depression and withdrawal symptoms. 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 He had been a chronic alcoholic, but then developed chronic pancreatitis because of this. He then transition to fentanyl because he could no longer drink. He states that his life has spiraled now and he is homeless, a junky, and on a spiral downwards. He found his significant other in the field a few months ago, and is not been coping well. He is regularly been using heroin, crack and meth ever since. He has been drinking 1/5 every day, and states that he wants to end his life. He states he has tried to overdose multiple times but has not been able to kill himself. He states that if he could not kill himself that way he will kill himself by slitting his wrists or walking into traffic or jumping off a bridge. He did get admitted to a mental health facility 9 years ago which was helpful. He denies any other complaints at this time. No other modifying factors. Exam demonstrates a disheveled male, in no acute distress though. He appears notably depressed. I have high concern for his safety. We we will enlist the help of mental health. Will give clonidine and Librium to help with concern for withdrawal symptoms. We will monitor closely medically clear and reassess. Patient is hungry and he will be given food. 3:15 PM Laboratory workup has returned, white count stable, transaminitis is mild and he has been at these levels before. Thyroid function normal. UDS negative. Alcohol level negative. With this low alcohol level, and his low CIWA score, I do not think that he is at high risk for severe DTs at this point. Will continue the Librium, we will give continue clonidine patches as needed. He has been seen and assessed by mental health, they agree with the need for inpatient evaluation. They are placing referrals at this time. Patient will remain here voluntarily. Patient will be signed out pending placement. Quality:[facility] Health Related Social Needs: Health related social needs housing instability, housed, with risk of homelessness(Z59.811), food insecurity(Z59.41), transportation insecurity(Z59.82), material hardship(utilities)(Z59.87), problem related to primary support group(Z63.9) Health related social needs details homeless [facility] All Active Problems (Updated 05/10/24 @ 15:17 by Jarrod Vaughn DO) Moderate substance use disorder (Acute) Feeling like committing suicide (Acute) Homeless (Acute) Depression (Chronic) Hepatitis C (Chronic) Suicidal ideation (Acute) Hyperglycemia (Acute) Opiate addiction (Acute) Leukocytosis (Acute) Alcohol withdrawal (Acute) Elevated transaminase level (Acute) Cellulitis of hand, right (Acute) Cellulitis of left leg (Acute) Cellulitis and abscess of right leg (Acute) Cutaneous abscess of right ankle (Acute) Abscess of right forearm (Acute) Hypocalcemia (Acute) Abscess of right arm (Acute) Acute thrombosis of right basilic vein (Acute) Cellulitis of arm, right (Acute) Fever (Acute) Acute Lyme disease (Acute) Duodenal ulcer disease (Acute) Alcohol withdrawal (Acute) Chronic calcific pancreatitis (Acute) Hepatic dysfunction (Acute) Abdominal pain (Acute) Nausea & vomiting (Acute) Fatty liver (Acute) IV drug user (Chronic) Alcohol abuse (Chronic) Transaminitis (Chronic) Gallbladder polyp (Acute) GI bleeding (Chronic) Dilated pancreatic duct (Acute) Opioid abuse (Chronic) Discharge planning issues (Acute) Thrombocytopenia (Chronic) Portal hypertensive gastropathy (Acute) Nicotine dependence (Acute) Unsheltered homelessness (Acute) Homelessness (Acute) Agitation (Acute) COVID-19 (Acute) Alcohol withdrawal (Acute) Acute pancreatitis (Acute) Duodenal mass (Acute) Alcoholism (Acute) Infected abrasion of skin of right ankle (Acute) Infected abrasion of skin of left ankle (Acute) Agitation (Acute) Polysubstance use disorder (Acute) Contusion of right knee (Acute) Lyme disease (Acute) Abrasion (Acute) Trauma (Acute) Inflammatory arthritis (Acute) Alcoholic ketoacidosis (Acute) Vomiting (Acute) Abdominal pain (Acute) Alcoholic ketoacidosis (Acute) Abdominal pain with vomiting (Acute) Depression with anxiety (Acute) Family history of schizophrenia (Chronic) Father Migraine with aura (Acute) Homeless (Acute) Alcoholic fatty liver (Acute) Severe depression (Chronic) Alcohol abuse (Chronic) Heroin abuse (Chronic) Elevated transaminase level (Acute) Chronic back pain (Chronic) Anxiety, generalized (Chronic) Medical History Duodenitis DKA (diabetic ketoacidosis) Pancreatitis History of alcohol abuse Depression Opiate addiction Surgical History No significant past surgical history No significant past surgical history Family History Mother Heart disease Asthma Father No problems noted. Sister Asthma Sister No problems noted. Brother No problems noted. Grandfather Essential hypertension Heart disease Asthma Grandfather Essential hypertension Heart disease Grandmother No problems noted. Grandmother No problems noted. Son No problems noted. Daughter No problems noted. Daughter Asthma Mother Heart disease Diabetes Father Heart disease Stroke Hypertension Self No problems noted. Sister Diabetes Hypertension Maternal Grandmother Cancer type Social History Smoking/Tobacco Use Status: Current every day Tobacco Type: cigarettes Smoking packs per day: 1 Smoking cigarettes per day: 20.0 Years smoked: 30 Smoking pack-years: 30.00 Counseling given: provider counseling and support medications Smoking risk assessment performed?: Yes Alcohol Intake: current Alcohol Intake frequency: 0-2 drinks per day Alcohol type: beer and hard liquor Counseling given: Yes Counseling provided: provider counseling and other Drug use: Daily Substance use type: marijuana, heroin, opiates, IV drugs, methamphetamine and other Details: fentanyl Counseling given: Yes Counseling provided: provider counseling Housing: homeless Number of Children: 3 Other: Lives alone in a tent in the [facility] What type of physical activity do you participate in: none Drive intox or ride w/intox commercial driver: No Working smoke detector in home: Yes Carbon monox detector in home: Yes Do you feel safe at home: Yes Do you feel safe in your relationship?: Yes PAWSS Have you Been Recently Intoxicated or Drunk Within the Last 30 days?: Yes Have you Ever Experienced Previous Episodes of Alcohol Withdrawal?: Yes Have you ever Experienced Withdrawal Seizures?: Yes Have you ever Experienced Delirium Tremens(DT)s?: Yes Have you ever undergone Alcohol Rehabilitation Treatment (i.e, inpt ot outpatient treatment programs)?: Yes Have you ever Experienced Blackouts?: Yes Have you ever Combined Alcohol with other Downers within the last 90 days?: No Have you ever Combined Alcohol with any other Substance of Abuse during the last 90 days?: Yes Positive Blood Alcohol level on Presentation? [PCS.BAL]: No Evidence of Increased Autonomic Activity (i.e. HR>120, tremor, sweating, agitation, nausea)?: Yes Result: 9
[2024-05-10 10:48] LABS: Abs Immature Grans 0.03 10^3/uL (0.0-0.06); Absolute Basophil Count 0.04 10^3/uL (0.0-0.2); Absolute Eosinophil Count 0.03 10^3/uL (0.0-0.7); Absolute Lymphocyte Count 1.86 10^3/uL (1.2-3.4); Absolute Monocyte Count 0.64 10^3/uL (0.1-0.8); Absolute Neutrophil Count 5.46 10^3/uL (1.2-6.7); Basophils % 0.5 %; Eosinophils % 0.4 %; HCT 42.1 % (40.0-50.0); HGB 14.1 g/dL (13.5-17.5); Immature Grans % 0.4 %; Lymphocytes % 23.1 %; MCH 31.5 pg (27.0-33.0); MCHC 33.5 % (32.0-36.0); MCV 94 fL (80-95); MPV 8.8 fL (8.0-11.0); Monocytes % 7.9 %; Neutrophils % 67.7 %; Platelet Count 294 10^3/uL (130-400); RBC 4.48 10^6/uL (4.36-5.78); RDW 12.7 % (11.8-14.1); RDW-SD 43.8 fL; WBC 8.06 10^3/uL (4.4-10.8)
[2024-05-10] MEDS: Ketorolac 15 MG/ML VIAL IVP (10:53)
[2024-05-10] MEDS: chlordiazePOXIDE 25 MG CAP 50 MG PO (10:53)
[2024-05-10 11:12] LABS: ALT 337 U/L (16-63); AST 182 U/L (15-37); Albumin 3.4 g/dL (3.4-5.0); Alkaline Phosphatase 116 U/L (46-116); Anion Gap 10.5 mmol/L (3-11); BUN 6 mg/dL (7-18); Bilirubin, Total 0.41 mg/dL (0.2-1.0); CO2 26.5 mmol/L (21.0-32.0); Chloride 103 mmol/L (98-107); Estimated GFR 96.97 (mL/min/1.73m2); Glucose 218 mg/dL (74-106); Lipase 15 U/L (16-77); Potassium 3.8 mmol/L (3.5-5.1); Sodium 140 mmol/L (136-145); TSH (W/Ref FT4) 0.36 uIU/mL (0.36-3.74); Total Protein 7.3 g/dL (6.4-8.2)
[2024-05-10 11:15] LABS: ETHANOL BLOOD < 3.0 mg/dL (<10)
[2024-05-10 11:17] LABS: Salicylate 3.5 mg/dL (<2.8)
[2024-05-10 11:17] LABS: *AMPHETAMINES SCREEN URINE Negative (Negative); *BARBITURATES SCREEN URINE Negative (Negative); *BENZODIAZEPINES SCREEN URINE Negative (Negative); Cannabinoids THC Negative (Negative); Cocaine Screen,Urine Negative (Negative); METHADONE URINE SCREEN Negative (Negative); OPIATES URINE SCREEN Negative (Negative); Tricyclic Antidepressants Negative (Negative)
[2024-05-10 11:19] LABS: Calcium 9.1 mg/dL (8.5-10.1)
[2024-05-10 11:20] LABS: Acetaminophen < 2 ug/mL (10-30)
[2024-05-10] MEDS: cloNIDine 0.1 MG PATCH TD (11:31)
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
--- NOTE | 2024-05-10 14:55 | PDOC.CMSAFE ---
Date of service: 05/10/24 Time of Service: 14:55 Care Management Safety Plan Status Status: Voluntary Reason for Wait Reason for Wait: Inpatient Admission (referrals to be sent to facilities by [facility] today) Safety Plan Safety Plan: VOLUNTARY FOR INPATIENT PSYCHIATRIC STABILIZATION.? Patient is appropriate in all interactions since arriving at [facility]; Pt has demonstrated appropriate coping and communication skills, has articulated his or her needs and concerns and is fully engaged during staff interactions. Safety plan has been established with patient, and care team, to adhere to patient goals, identify restrictions based on behavioral status, address nutrition, and determine allowed personal belongings, tools for hygiene and personal care. Determine level of activity including ambulation, level of supervision, visitors, and determine privileges based on behaviors and level of engagement by pt. SAFETY PLAN: 1. Will remain on suicide precautions, in paper clothes 2. Will remain in room under direct supervision of one-on-one staff at all times provided by [employer]; ATIYA, WAREHOUSE DISTRIBUTION ASSOCIATE apron operator. 3. May have paper cups, plates, finger foods as well as a cardboard spoon with which to eat meals. 4. Follow [facility] Management of the Admitted Behavioral Health Patient policy. 5. Comfort bath system, shower permitted with escort at RN discretion. 6. Personal belongings-soft items permitted at RN discretion. 7. Visitors-none at this time. 8. Activities: soft cart items approved per RN discretion. 9.? Bathroom privileges with escort in the ED. 10. Phone: limited to cordless phone at RN discretion. Due to VOLUNTARY status, if patient wishes to leave [facility], staff will contact [facility] Crisis Screener ([phone]) and On-Call Planner/Scheduler ([phone]) as soon as possible. In the event of elopement, notify [facility] Police ([phone]). Patient is currently voluntarily at [facility] and seeking inpatient admission when a bed becomes available. [facility] Frontline Box Annealer will continue seeking placement. Please contact the Restoration Officer Planner/Scheduler ([phone]) and [facility] Box Annealer ([phone]) for any needed changes in the Safety Plan. Safety plan has been provided to interdepartmental care team
[2024-05-10 15:08] VITALS: BP 121/81; PULSE 79; RESP 16; TEMP 37.2; O2SAT 99
[2024-05-10] MEDS: chlordiazePOXIDE 25 MG CAP PO ×2 (15:46→20:06)
--- NOTE | 2024-05-10 16:21 | ED.PROG_ITS ---
Date of service: 05/10/24 Time of Service: 16:22 Medical Decision Making Patient seeking voluntary placement for depression and thoughts of self-harm and substance abuse. Currently, cooperative with no new acute complaints, will continue to monitor until safe disposition found. Quality:SDOH Health Related Social Needs: Health related social needs housing instability, house d, with risk of homelessness(Z59.811), food insecurity(Z59.41), transportation insecurity(Z59.82), material hardship(utilities)(Z59.87), problem related to primary support group(Z63.9) Health related social needs details homeless Sign Out Sign Out Data: Sign Out Comment: Depressed, suicidal, has a plan, has a history of alcohol and drug use. Currently on Librium 25mg 3 times daily and clonidine patch. If symptoms worsen, it would be reasonable to start on buprenorphine or Suboxone, as well as potentially increase Librium as needed. Pending placement. Voluntary. Last updated by Jarrod Vaughn DO at 05/10/24 15:55 Discharge Plan Discharge Details Chief Complaint: PsychEval Clinical Impression: Depression, Homeless, Feeling like committing suicide, Moderate substance use disorder Primary Care Provider: Joel Martinez ED Provider: Alex Avendaño Home Meds and New Rx's Prescriptions: No Action No Known Home Meds
[2024-05-10] MEDS: Ketorolac 15 MG/ML VIAL IM (18:17)
[2024-05-10] MEDS: OLANZapine 10 MG TAB PO (20:36)
[2024-05-10] MEDS: diphenhydrAMINE 25 MG CAP 50 MG PO (20:36)
[2024-05-11] MEDS: LORazepam 1 MG TAB 2 MG PO ×2 (01:04→22:45)
[2024-05-11 01:35] VITALS: BP 127/80; PULSE 74; RESP 16; TEMP 36.4; O2SAT 99
[2024-05-11] MEDS: chlordiazePOXIDE 25 MG CAP 50 MG PO ×4 (01:50→19:55)
[2024-05-11] MEDS: Ondansetron O.D.T. 4 MG TABEF PO ×4 (01:50→22:45)
[2024-05-11] MEDS: Nicotine 14 MG/24 HR PATCH (08:00)
--- NOTE | 2024-05-11 08:56 | W.EDPROG ---
Date of service: 05/11/24 Time of Service: 07:00 Medical Decision Making In brief, this is a 39-year-old male patient with a past medical history significant for polysubstance use disorder, homelessness, transaminitis and depression who is presenting for evaluation of suicidal ideation with a plan to overdose. At the time that I took over his care, the patient had been medically cleared, is receiving Librium for withdrawal type symptoms, and is awaiting placement. He is currently voluntary, hemodynamically appropriate. He did have some vomiting last night for which she received Zofran, and was tolerating p.o. during my evaluation this morning. The patient endorses feeling awful this morning, with ongoing suicidal ideation, intent to overdose if he leaves the hospital. He remains voluntary, states that he is feeling quite unwell from a withdrawal standpoint. I did provide him with a nicotine patch. I reordered his Librium taper, with the plan to complete the 50 mg dosing today and transition to 25 mg tomorrow. As the Librium is tapered, the patient is interested in discussing Suboxone maintenance therapy. I signed out care of this patient to the oncoming provider prior to final placement. Patient remains voluntary and has not required any medications for sedation or restraint. I did provide him with some Toradol for symptomatic management of body pain. All further care per the oncoming provider. Sulma Henson MD Medical Records Medical records reviewed: Yes I reviewed the patient's medical records. Lab Data Lab results reviewed: Yes I reviewed the patient's lab results. Quality:[facility] Health Related Social Needs: Health related social needs housing instability, housed, with risk of homelessness(Z59.811), food insecurity(Z59.41), transportation insecurity(Z59.82), material hardship(utilities)(Z59.87), problem related to primary support group(Z63.9) Health related social needs details homeless Sign Out Sign Out Data: Sign Out Comment: Depressed, suicidal, has a plan, has a history of alcohol and drug use. Currently on Librium 25mg 3 times daily and clonidine patch. If symptoms worsen, it would be reasonable to start on buprenorphine or Suboxone, as well as potentially increase Librium as needed. Pending placement. Voluntary. Last updated by Jarrod Vaughn DO at 05/10/24 15:55 Sign Out Comment: Patient seeking voluntary placement for depression and SI and also substance abuse. Currently on Librium for potential alcohol withdrawal and also placed on a clonidine patch. Last updated by Alex Avendaño MD at 05/10/24 19:23 Discharge Plan Discharge Details Chief Complaint: PsychEval Clinical Impression: Depression, Homeless, Feeling like committing suicide, Moderate substance use disorder Primary Care Provider: Joel Martinez ED Provider: Sulma Henson Home Meds and New Rx's Prescriptions: No Action No Known Home Meds
[2024-05-11 09:56] VITALS: BP 133/88; PULSE 89; RESP 18; TEMP 37.1; O2SAT 98
[2024-05-11] MEDS: Ketorolac 10 MG TAB PO ×2 (11:58→16:08)
--- NOTE | 2024-05-11 14:34 | CMSP_ITS ---
Date of service: 05/11/24 Time of Service: 14:34 Care Management Safety Plan Status Status: Voluntary Reason for Wait Reason for Wait: Inpatient Admission Safety Plan Safety Plan: VOLUNTARY FOR INPATIENT PSYCHIATRIC STABILIZATION.? Patient is appropriate in all interactions since arriving at [facility]; Pt has demonstrated appropriate coping and communication skills, has articulated his or her needs and concerns and is fully engaged during staff interactions. Safety plan has been established with patient, and care team, to adhere to patient goals, identify restrictions based on behavioral status, address nutrition, and determine allowed personal belongings, tools for hygiene and personal care. Determine level of activity including ambulation, level of supervision, visitors, and determine privileges based on behaviors and level of engagement by pt. SAFETY PLAN: 1. Will remain on suicide precautions, in paper clothes 2. Will remain in room under direct supervision of one-on-one staff at all times provided by [employer]; ATIYA, PLODDING MACHINE OPERATOR inspector cold working. 3. May have paper cups, plates, finger foods as well as a cardboard spoon with which to eat meals. 4. Follow [facility] Management of the Admitted Behavioral Health Patient policy. 5. Comfort bath system, shower permitted with escort at RN discretion. 6. Personal belongings-soft items permitted at RN discretion. 7. Visitors-none at this time. 8. Activities: soft cart items approved per RN discretion. 9.? Bathroom privileges with escort in the ED. 10. Phone: limited to cordless phone at RN discretion. Due to VOLUNTARY status, if patient wishes to leave [facility], staff will contact [facility] Crisis Screener ([phone]) and On-Call Awning Maker And Installer ([phone]) as soon as possible. In the event of elopement, notify [facility] Police ([phone]). Patient is currently voluntarily at [facility] and seeking inpatient admission when a bed becomes available. [facility] Frontline Wellness Ambassador will continue seeking placement. Please contact the Professor Of Management Awning Maker And Installer ([phone]) and [facility] Wellness Ambassador ([phone]) for any needed changes in the Safety Plan. Safety plan has been provided to interdepartmental care team
--- NOTE | 2024-05-11 14:35 | PDOC.CMPRO ---
Date of service: 05/11/24 Time of Service: 14:35 Care Management Progress Note Progress Note Text Progress Note Text: CM discussed the plan of care for Jose with MASHA Shaikh, and VIV Johnson. Per DIANE, Jose engaged minimally, and remains voluntary, seeking inpatient psychiatric admission. Per RN, Jose has been appropriate and cooperative in interactions. Referrals were sent to all facilities; no beds available today. Safety plan in place. CM will continue to follow.
--- NOTE | 2024-05-11 16:51 | ED.PROG_ITS ---
Date of service: 05/11/24 Time of Service: 19:52 Medical Decision Making Care assumed from off going provider. Patient has a history of polys MALIK, unhoused, withdrawal. symptoms Improved wtih librium. has been seen by [facility]. Is currently Voluntary but should re-evaluate if tries to leave. Quality:SDOH Health Related Social Needs: Health related social needs housing instability, house d, with risk of homelessness(Z59.811), food insecurity(Z59.41), transportation insecurity(Z59.82), material hardship(utilities)(Z59.87), problem related to primary support group(Z63.9) Health related social needs details homeless Sign Out Sign Out Data: Sign Out Comment: Depressed, suicidal, has a plan, has a history of alcohol and drug use. Currently on Librium 25mg 3 times daily and clonidine patch. If symptoms worsen, it would be reasonable to start on buprenorphine or Suboxone, as well as potentially increase Librium as needed. Pending placement. Voluntary. Last updated by Jarrod Vaughn DO at 05/10/24 15:55 Sign Out Comment: Patient seeking voluntary placement for depression and SI and also substance abuse. Currently on Librium for potential alcohol withdrawal and also placed on a clonidine patch. Last updated by Alex Avendaño MD at 05/10/24 19:23 Sign Out Comment: 39-year-old male patient with polysubstance use disorder, here in the emergency department with suicidal ideation and a plan to overdose, as well as withdrawal symptoms. It is written for a Librium taper, would be amenable to discuss Suboxone maintenance therapy in the future as the Librium was tapered off. Has not required any chemical or physical restraint, does have some Toradol for body pain. Remains voluntary, would require reassessment if he wanted to leave, no beds at [place] today. Last updated by Sulma Henson MD at 05/11/24 16:28 Discharge Plan Discharge Details Chief Complaint: PsychEval Clinical Impression: Depression, Homeless, Feeling like committing suicide, Moderate substance use disorder Primary Care Provider: Joel Martinez ED Provider: Celina Tse Home Meds and New Rx's Prescriptions: No Action No Known Home Meds
[2024-05-12] MEDS: LORazepam 1 MG TAB 2 MG PO (05:15)
[2024-05-12] MEDS: Ondansetron O.D.T. 4 MG TABEF PO ×2 (05:16→17:32)
[2024-05-12] MEDS: chlordiazePOXIDE 25 MG CAP PO ×4 (05:16→16:39)
[2024-05-12] MEDS: Ketorolac 10 MG TAB PO (05:16)
--- NOTE | 2024-05-12 08:06 | ED.PROG_ITS ---
Date of service: 05/12/24 Time of Service: 08:07 Medical Decision Making The patient was stable over the arc of this shift without any significant problems. The patient slept through the night without complications. The patient is currently on a combination of Librium and Ativan to control alcohol withdrawal. He continues to be a voluntary psychiatric admission. Quality:[facility] Health Related Social Needs: Health related social needs housing instability, house d, with risk of homelessness(Z59.811), food insecurity(Z59.41), transportation insecurity(Z59.82), material hardship(utilities)(Z59.87), problem related to primary support group(Z63.9) Health related social needs details homeless Sign Out Sign Out Data: Sign Out Comment: Depressed, suicidal, has a plan, has a history of alcohol and drug use. Currently on Librium 25mg 3 times daily and clonidine patch. If symptoms worsen, it would be reasonable to start on buprenorphine or Suboxone, as well as potentially increase Librium as needed. Pending placement. Voluntary. Last updated by Jarrod Vaughn DO at 05/10/24 15:55 Sign Out Comment: Patient seeking voluntary placement for depression and SI and also substance abuse. Currently on Librium for potential alcohol withdrawal and also placed on a clonidine patch. Last updated by Alex Avendaño MD at 05/10/24 19:23 Sign Out Comment: 39-year-old male patient with polysubstance use disorder, here in the emergency department with suicidal ideation and a plan to overdose, as well as withdrawal symptoms. It is written for a Librium taper, would be amenable to discuss Suboxone maintenance therapy in the future as the Librium w as tapered off. Has not required any chemical or physical restraint, does have some Toradol for body pain. Remains voluntary, would require reassessment if he wanted to leave, no beds at [place] today. Last updated by Sulma Henson MD at 05/11/24 16:28 Sign Out Comment: Voluntary Pending Placement reassess if decides to leave [facility] with plan to OD polysubstance abuse with withdrawal, feeling better on librium no issues during my shift Last updated by Celina Tse MD at 05/11/24 21:28 Discharge Plan Discharge Details Chief Complaint: PsychEval Clinical Impression: Depression, Homeless, Feeling like committing suicide, Moderate substance use disorder Primary Care Provider: Joel Martinez ED Provider: Moises Marlow Home Meds and New Rx's Prescriptions: No Action No Known Home Meds
[2024-05-12 08:44] VITALS: BP 124/91; PULSE 109; RESP 16; TEMP 36.8; O2SAT 98
[2024-05-12] MEDS: Buprenorphine/Naloxone 8 mg/2 mg FILM 1 EACH SL (09:08)
--- NOTE | 2024-05-12 14:26 | PDOC.CMSAFE ---
Date of service: 05/12/24 Time of Service: 14:28 Care Management Safety Plan Status Status: Voluntary Reason for Wait Reason for Wait: Inpatient Admission Safety Plan Safety Plan: VOLUNTARY FOR INPATIENT PSYCHIATRIC STABILIZATION.? Patient is appropriate in all interactions since arriving at [facility]; Pt has demonstrated appropriate coping and communication skills, has articulated his or her needs and concerns and is fully engaged during staff interactions. Safety plan has been established with patient, and care team, to adhere to patient goals, identify restrictions based on behavioral status, address nutrition, and determine allowed personal belongings, tools for hygiene and personal care. Determine level of activity including ambulation, level of supervision, visitors, and determine privileges based on behaviors and level of engagement by pt. SAFETY PLAN: 1. Will remain on suicide precautions; he may have his own sweatpants (strings removed), and a jacob shirt, per RN discretion. 2. Will remain in room under direct supervision of one-on-one staff at all times provided by [employer]; ATIYA, COLLECTION CORRESPONDENT yarn texture machine operator. 3. May have paper cups, plates, finger foods as well as a cardboard spoon with which to eat meals. 4. Follow [facility] Management of the Admitted Behavioral Health Patient policy. 5. Comfort bath system, shower permitted with escort at RN discretion. 6. Personal belongings-soft items permitted at RN discretion. 7. Visitors-none at this time. 8. Activities: soft cart items approved per RN discretion. 9.? Bathroom privileges with escort in the ED. 10. Phone: limited to cordless phone at RN discretion. Due to VOLUNTARY status, if patient wishes to leave [facility], staff will contact [facility] Crisis Screener ([phone]) and On-Call Industrial Real Estate Agent ([phone]) as soon as possible. In the event of elopement, notify [place] [employer] Police ([phone]). Patient is currently voluntarily at [facility] and seeking inpatient admission when a bed becomes available. [facility] Frontline Dealer Card Room will continue seeking placement. Please contact the Turkey Cleaner Industrial Real Estate Agent ([phone]) and [facility] Dealer Card Room ([phone]) for any needed changes in the Safety Plan. Safety plan has been provided to interdepartmental care team.
--- NOTE | 2024-05-12 14:31 | CMPROGNOTE_ITS ---
Date of service: 05/12/24 Time of Service: 14:31 Care Management Progress Note Progress Note Text Progress Note Text: CM spoke to [facility], RN mold yarn supervisor and RN (separately) regarding Jose's plan of care. Per RN, Jose appears to be feeling better today from a withdrawal standpoint; his medications were changed and appear to be effective. Per report, he is a little irritable today, but continues to be appropriate in interactions with staff. Jose has been very cold, therefore it was discussed to allow him to wear his own sweatpants (strings removed by RN), and a jacob shirt under his paper scrubs, which was added to his safety plan. Per [facility], there are likely no beds this weekend, although they will continue to check with the hospitals daily. Referrals are pending; no beds available today. Safety plan in place. CM will continue to follow.
--- NOTE | 2024-05-12 15:48 | W.EDPROG ---
Date of service: 05/12/24 Time of Service: 15:48 Medical Decision Making Care was signed out by Dr. Castillo, please see his documentation regarding prior ED course. Patient is here with suicidal ideation and alcohol withdrawal. Alcohol withdrawal is being controlled with Librium scheduled as well as breakthrough Ativan. Other than treatment of alcohol withdrawal, patient was noted be medically cleared at time of signout. Plan at signout was to await psychiatric treatment facility placement. I did review the patient's labs: transaminitis noted. This is likely result of known diagnosis hepatitis C. I was notified by nursing that patient was requesting treatment for opioid withdrawal. Patient notes feeling like crawling out of his skin. Patient apparently requested buprenorphine yesterday and was denied with the initiation of Librium. I initiated treatment with Suboxone 8 mg. Patient was reassessed and noted significant improvement, specifically noting crawlies are off my skin. I will schedule daily Suboxone to control opioid withdrawal. Lab Data Lab results reviewed: Yes I reviewed the patient's lab results. Labs: Laboratory Tests Range/Units 05/10/24 05/10/24 10:20 10:45 WBC (4.4-10.8) 10^3/uL 8.06 RBC (4.36-5.78) 10^6/uL 4.48 Hgb (13.5-17.5) g/dL 14.1 Hct (40.0-50.0) % 42.1 MCV (80-95) fL 94 MCH (27.0-33.0) pg 31.5 MCHC (32.0-36.0) % 33.5 RDW (11.8-14.1) % 12.7 Plt Count (130-400) 10^3/uL 294 MPV (8.0-11.0) fL 8.8 Immature Gran % % 0.4 Neutrophils % % 67.7 Lymphocytes % % 23.1 Monocytes % % 7.9 Eosinophils % % 0.4 Basophils % % 0.5 Nucleated RBC % (0.0-0.3) % 0.0 Absolute Neutrophils (1.2-6.7) 10^3/uL 5.46 Absolute Lymphocytes (1.2-3.4) 10^3/uL 1.86 Absolute Monocytes (0.1-0.8) 10^3/uL 0.64 Absolute Eosinophils (0.0-0.7) 10^3/uL 0.03 Absolute Basophils (0.0-0.2) 10^3/uL 0.04 Sodium (136-145) mmol/L 140 Potassium (3.5-5.1) mmol/L 3.8 Chloride (98-107) mmol/L 103 Carbon Dioxide (21.0-32.0) mmol/L 26.5 Anion Gap (3-11) mmol/L 10.5 BUN (7-18) mg/dL 6 L Creatinine (0.70-1.30) mg/dL 1.0 Est GFR (CKD-EPI 2020) (mL/min/1.73m2) 96.97 Glucose (74-106) mg/dL 218 H Calcium (8.5-10.1) mg/dL 9.1 Total Bilirubin (0.2-1.0) mg/dL 0.41 AST (15-37) U/L 182 H ALT (16-63) U/L 337 H Alkaline Phosphatase (46-116) U/L 116 Total Protein (6.4-8.2) g/dL 7.3 Albumin (3.4-5.0) g/dL 3.4 Lipase (16-77) U/L 15 L TSH (0.36-3.74) uIU/mL 0.36 Salicylates (<2.8) mg/dL 3.5 Urine Opiates Screen (Negative) Negative Urine Methadone Screen (Negative) Negative Acetaminophen (10-30) ug/mL < 2 Ur Barbiturates Screen (Negative) Negative Ur Tricyclics Screen (Negative) Negative Ur Amphetamines Screen (Negative) Negative U Benzodiazepines Scrn (Negative) Negative Urine Cocaine Screen (Negative) Negative Ur THC Screen (Negative) Negative Ethyl Alcohol (<10) mg/dL < 3.0 Quality:SDOH Health Related Social Needs: Health related social needs housing instability, housed, with risk of homelessness(Z59.811), food insecurity(Z59.41), transportation insecurity(Z59.82), material hardship(utilities)(Z59.87), problem related to primary support group(Z63.9) Health related social needs details homeless Sign Out Sign Out Data: Sign Out Comment: Depressed, suicidal, has a plan, has a history of alcohol and drug use. Currently on Librium 25mg 3 times daily and clonidine patch. If symptoms worsen, it would be reasonable to start on buprenorphine or Suboxone, as well as potentially increase Librium as needed. Pending placement. Voluntary. Last updated by Jarrod Vaughn DO at 05/10/24 15:55 Sign Out Comment: Patient seeking voluntary placement for depression and SI and also substance abuse. Currently on Librium for potential alcohol withdrawal and also placed on a clonidine patch. Last updated by Alex Avendaño MD at 05/10/24 19:23 Sign Out Comment: 39-year-old male patient with polysubstance use disorder, here in the emergency department with suicidal ideation and a plan to overdose, as well as withdrawal symptoms. It is written for a Librium taper, would be amenable to discuss Suboxone maintenance therapy in the future as the Librium was tapered off. Has not required any chemical or physical restraint, does have some Toradol for body pain. Remains voluntary, would require reassessment if he wanted to leave, no beds at [place] today. Last updated by Sulma Henson MD at 05/11/24 16:28 Sign Out Comment: Voluntary Pending Placement reassess if decides to leave [facility] with plan to OD polysubstance abuse with withdrawal, feeling better on librium no issues during my shift Last updated by Celina Tse MD at 05/11/24 21:28 Discharge Plan Discharge Details Chief Complaint: PsychEval Clinical Impression: Depression, Homeless, Feeling like committing suicide, Moderate substance use disorder Primary Care Provider: Joel Martinez ED Provider: Luis Hill Home Meds and New Rx's Prescriptions: No Action No Known Home Meds
[2024-05-12 19:19] VITALS: BP 110/70; PULSE 75; RESP 16; TEMP 36.6; O2SAT 99
--- NOTE | 2024-05-12 23:27 | ED.PROG_ITS ---
Date of service: 05/12/24 Time of Service: 23:27 Medical Decision Making This patient was signed out to me. Please see previous notes for H&P and initial eval. In brief, 39yo M presenting with SI and polysubstance use, currently being treated for ETOH withdrawal (librium) and opiate withdrawal (suboxone) and pending voluntary psychiatric placement. Overnight no acute events. Did not wake patient for assessment. Will be signed out to oncoming physician, plan remains as above. Quality:SDOH Health Related Social Needs: Health related social needs housing instability, house d, with risk of homelessness(Z59.811), food insecurity(Z59.41), transportation insecurity(Z59.82), material hardship(utilities)(Z59.87), problem related to primary support group(Z63.9) Health related social needs details homeless Sign Out Sign Out Data: Sign Out Comment: Depressed, suicidal, has a plan, has a history of alcohol and drug use. Currently on Librium 25mg 3 times daily and clonidine patch. If symptoms worsen, it would be reasonable to start on buprenorphine or Suboxone, as well as potentially increase Librium as needed. Pending placement. Voluntary. Last updated by Jarrod Vaughn DO at 05/10/24 15:55 Sign Out Comment: Patient seeking voluntary placement for depression and SI and also substance abuse. Currently on Librium for potential alcohol withdrawal and also placed on a clonidine patch. Last updated by Alex Avendaño MD at 05/10/24 19:23 Sign Out Comment: 39-year-old male patient with polysubstance use disorder, here in the emergency department with suicidal ideation and a plan to overdose, as well as withdrawal symptoms. It is written for a Librium taper, would be amenable to discuss Suboxone maintenance therapy in the future as the Librium was tapered off. Has not required any chemical or physical restraint, does have some Toradol for body pain. Remains voluntary, would require reassessment if he wanted to leave, no beds at [place] today. Last updated by Sulma Henson MD at 05/11/24 16:28 Sign Out Comment: Voluntary Pending Placement reassess if decides to leave SI with plan to OD polysubstance abuse with withdrawal, feeling better on librium no issues during my shift Last updated by Celina Tse MD at 05/11/24 21:28 Sign Out Comment: Patient here voluntarily seeking placement. Patient has suicidal ideation. Alcohol use disorder as well as opioid use disorder. Scheduled Librium initiated as well as breakthrough Ativan. Today patient requested treatment for opioid withdrawal. Suboxone initiated and provided significant relief. This has been scheduled daily. Patient awaiting psychiatric treatment facility placement. Last updated by Luis Hill MD at 05/12/24 16:19 Sign Out Comment: The patient is a 39-year-old male who is in the emergency department for polysubstance use disorder. Patient currently receiving Librium, Ativan as needed and Suboxone. Patient is comfortable with this medication regimen. Patient had no issue in the afternoon. Still waiting for bed placement at this point. Last updated by Lindsey Morin DO at 05/12/24 23:20 Discharge Plan Discharge Details Chief Complaint: PsychEval Clinical Impression: Depression, Homeless, Feeling like committing suicide, Moderate substance use disorder Primary Care Provider: Joel Martinez ED Provider: Phyllis Chapin Home Meds and New Rx's Prescriptions: No Action No Known Home Meds
[2024-05-13] MEDS: Nicotine 14 MG/24 HR PATCH TD (07:37)
--- NOTE | 2024-05-13 07:44 | W.EDPROG ---
Date of service: 05/13/24 Time of Service: 07:44 Medical Decision Making Patient signed out to me seeking voluntary placement for polysubstance abuse and thoughts of self-harm. No issues reported on prior shift and currently, cooperative. He did request nicotine patches which I ordered. Will continue to monitor until safe disposition found. Quality:SDOH Health Related Social Needs: Health related social needs housing instability, housed, with risk of homelessness(Z59.811), food insecurity(Z59.41), transportation insecurity(Z59.82), material hardship(utilities)(Z59.87), problem related to primary support group(Z63.9) Health related social needs details homeless Sign Out Sign Out Data: Sign Out Comment: Depressed, suicidal, has a plan, has a history of alcohol and drug use. Currently on Librium 25mg 3 times daily and clonidine patch. If symptoms worsen, it would be reasonable to start on buprenorphine or Suboxone, as well as potentially increase Librium as needed. Pending placement. Voluntary. Last updated by Jarrod Vaughn DO at 05/10/24 15:55 Sign Out Comment: Patient seeking voluntary placement for depression and SI and also substance abuse. Currently on Librium for potential alcohol withdrawal and also placed on a clonidine patch. Last updated by Alex Avendaño MD at 05/10/24 19:23 Sign Out Comment: 39-year-old male patient with polysubstance use disorder, here in the emergency department with suicidal ideation and a plan to overdose, as well as withdrawal symptoms. It is written for a Librium taper, would be amenable to discuss Suboxone maintenance therapy in the future as the Librium was tapered off. Has not required any chemical or physical restraint, does have some Toradol for body pain. Remains voluntary, would require reassessment if he wanted to leave, no beds at [place] today. Last updated by Sulma Henson MD at 05/11/24 16:28 Sign Out Comment: Voluntary Pending Placement reassess if decides to leave SI with plan to OD polysubstance abuse with withdrawal, feeling better on librium no issues during my shift Last updated by Celina Tse MD at 05/11/24 21:28 Sign Out Comment: Patient here voluntarily seeking placement. Patient has suicidal ideation. Alcohol use disorder as well as opioid use disorder. Scheduled Librium initiated as well as breakthrough Ativan. Today patient requested treatment for opioid withdrawal. Suboxone initiated and provided significant relief. This has been scheduled daily. Patient awaiting psychiatric treatment facility placement. Last updated by Luis Hill MD at 05/12/24 16:19 Sign Out Comment: The patient is a 39-year-old male who is in the emergency department for polysubstance use disorder. Patient currently receiving Librium, Ativan as needed and Suboxone. Patient is comfortable with this medication regimen. Patient had no issue in the afternoon. Still waiting for bed placement at this point. Last updated by Lindsey Morin DO at 05/12/24 23:20 Sign Out Comment: 39M, polysubstance abuse, SI pending voluntary placement. Librium for ETOH withdrawal, suboxone for opiate withdrawal. Last updated by Phyllis Chapin MD at 05/13/24 06:27 Discharge Plan Discharge Details Chief Complaint: PsychEval Clinical Impression: Depression, Homeless, Feeling like committing suicide, Moderate substance use disorder Primary Care Provider: Joel Martinez ED Provider: Alex Avendaño Home Meds and New Rx's Prescriptions: No Action No Known Home Meds
[2024-05-13 08:00] VITALS: BP 108/78; PULSE 78; RESP 16; TEMP 36.6; O2SAT 98
[2024-05-13] MEDS: Buprenorphine/Naloxone 8 mg/2 mg FILM 1 EACH SL (09:04)
--- NOTE | 2024-05-13 09:12 | PDOC.CMSAFE ---
Date of service: 05/13/24 Time of Service: 09:12 Care Management Safety Plan Status Status: Voluntary Reason for Wait Reason for Wait: Inpatient Admission Safety Plan Safety Plan: VOLUNTARY FOR INPATIENT PSYCHIATRIC STABILIZATION.? Patient is appropriate in all interactions since arriving at [facility]; Pt has demonstrated appropriate coping and communication skills, has articulated his or her needs and concerns and is fully engaged during staff interactions. Safety plan has been established with patient, and care team, to adhere to patient goals, identify restrictions based on behavioral status, address nutrition, and determine allowed personal belongings, tools for hygiene and personal care. Determine level of activity including ambulation, level of supervision, visitors, and determine privileges based on behaviors and level of engagement by pt. Per [facility], there are likely no beds this weekend, although they will continue to check with the hospitals daily. CM spoke to RN clearing supervisor and RN regarding Jose's plan of care. SAFETY PLAN: 1. Will remain on suicide precautions; he may have his own sweatpants (strings removed), and a jacob shirt, per RN discretion. 2. Will remain in room under direct supervision of one-on-one staff at all times provided by [employer]; ATIYA, FOOD AND BEVERAGE CONTROLLER teletray operator. 3. May have paper cups, plates, finger foods as well as a cardboard spoon with which to eat meals. 4. Follow [facility] Management of the Admitted Behavioral Health Patient policy. 5. Comfort bath system, shower permitted with escort at RN discretion. 6. Personal belongings-soft items permitted at RN discretion. 7. Visitors-none at this time. 8. Activities: soft cart items approved per RN discretion. 9.? Bathroom privileges with escort in the ED. 10. Phone: limited to cordless phone at RN discretion. Due to VOLUNTARY status, if patient wishes to leave [facility], staff will contact [facility] Crisis Screener ([phone]) and On-Call Resident Care Spec ([phone]) as soon as possible. In the event of elopement, notify [facility] Police ([phone]). Patient is currently voluntarily at [facility] and seeking inpatient admission when a bed becomes available. [facility] Frontline Tractor Crane Engineer will continue seeking placement. Please contact the [place] Machine Operator Resident Care Spec ([phone]) and [facility] Tractor Crane Engineer ([phone]) for any needed changes in the Safety Plan. Safety plan has been provided to interdepartmental care team.
[2024-05-13] MEDS: chlordiazePOXIDE 25 MG CAP PO ×2 (13:31→21:15)
[2024-05-13] MEDS: Sulfameth/Trimeth DS TAB 1 TAB PO (13:31)
--- NOTE | 2024-05-13 13:32 | PDOC.MHPN2 ---
Date of service: 05/13/24 Time of Service: 10:30 Mental Health Emergency Note Release [facility] release signed:: No Reason for Visit SI/SA In the last 2 weeks has the pt presented for ES prior to today?: Yes, presented at [facility] (Emergency Services) Impression The client is a 39-year-old male presenting at [facility] for crisis reassessment via [facility] while awaiting voluntary placement. The client was initially assessed on 05/10/2024 by [facility] Latasha. Today, the client presents oriented to all spheres and dressed in paper scrubs. The client reports periodic thoughts of suicidal ideation (SI) but denies homicidal ideation (HI). The client describes intrusive thoughts as varying between lingering and fleeting. The client reports experiencing nausea, contributing to discomfort. The client is actively in detox, having initiated Suboxone on 05/12/2024 and begun tapering off Librium. The client appears in the contemplative stage of recovery, presenting as goal-oriented and expressing a desire for help. The client stated, It was a horrible night, and my body?s in pain, and reported struggling with vomiting but was able to eat yogurt and some grapes this morning. The client noted sleeping approximately three hours overnight with broken sleep patterns. The client expressed commitment to recovery, stating, I?m going to follow through with this to the end; I need to. The client also reported feeling connected with [facility] Charge Alex, sharing, In talking with him, I?m feeling hopeful. I do still want to , but I?m going to stick this out. This, unlike other experiences, has been positive. The client disclosed ongoing feelings of shame and grief. The client remains amenable to voluntary admission and will continue to stay at [facility] until a placement is secured. WC Declined [facility], [place] no beds available Plan/Disposition Recommended Disposition: Hospitalization (WC Declined, No other beds open ) facilities contacted. Plan: Awaiting voluntary placement Reports/communication Outcome discussed with: ED/Personnel ([facility] charge- Alex )
[2024-05-13] MEDS: LORazepam 1 MG TAB 2 MG PO (21:16)
--- NOTE | 2024-05-13 23:30 | ED.PROG_ITS ---
Date of service: 05/13/24 Time of Service: 23:30 Medical Decision Making This patient was signed out to me. Please see previous notes for H&P and intial eval. In brief, 39yo M with polysubstance presenting with SI. Medically cleared pending voluntary inpatient placement. Overnight appeared to be sleeping; did not wake patient for assessment. Will be signed out to oncoming physician, plan remains as above. Quality:SDOH Health Related Social Needs: Health related social needs housing instability, house d, with risk of homelessness(Z59.811), food insecurity(Z59.41), transportation insecurity(Z59.82), material hardship(utilities)(Z59.87), problem related to primary support group(Z63.9) Health related social needs details homeless Sign Out Sign Out Data: Sign Out Comment: Depressed, suicidal, has a plan, has a history of alcohol and drug use. Currently on Librium 25mg 3 times daily and clonidine patch. If symptoms worsen, it would be reasonable to start on buprenorphine or Suboxone, as well as potentially increase Librium as needed. Pending placement. Voluntary. Last updated by Jarrod Vaughn DO at 05/10/24 15:55 Sign Out Comment: Patient seeking voluntary placement for depression and SI and also substance abuse. Currently on Librium for potential alcohol withdrawal and also placed on a clonidine patch. Last updated by Alex Avendaño MD at 05/10/24 19:23 Sign Out Comment: 39-year-old male patient with polysubstance use disorder, here in the emergency department with suicidal ideation and a plan to overdose, as well as withdrawal symptoms. It is written for a Librium taper, would be amenable to discuss Suboxone maintenance therapy in the future as the Librium was tapered off. Has not required any chemical or physical restraint, does have some Toradol for body pain. Remains voluntary, would require reassessment if he wanted to leave, no beds at [place] today. Last updated by Sulma Henson MD at 05/11/24 16:28 Sign Out Comment: Voluntary Pending Placement reassess if decides to leave SI with plan to OD polysubstance abuse with withdrawal, feeling better on librium no issues during my shift Last updated by Celina Tse MD at 05/11/24 21:28 Sign Out Comment: Patient here voluntarily seeking placement. Patient has suicidal ideation. Alcohol use disorder as well as opioid use disorder. Scheduled Librium initiated as well as breakthrough Ativan. Today patient requested treatment for opioid withdrawal. Suboxone initiated and provided significant relief. This has been scheduled daily. Patient awaiting psychiatric treatment facility placement. Last updated by Luis Hill MD at 05/12/24 16:19 Sign Out Comment: The patient is a 39-year-old male who is in the emergency department for polysubstance use disorder. Patient currently receiving Librium, Ativan as needed and Suboxone. Patient is comfortable with this medication regimen. Patient had no issue in the afternoon. Still waiting for bed placement at this point. Last updated by Lindsey Morin DO at 05/12/24 23:20 Sign Out Comment: 39M, polysubstance abuse, SI pending voluntary placement. Librium for ETOH withdrawal, suboxone for opiate withdrawal. Last updated by Phyllis Chapin MD at 05/13/24 06:27 Discharge Plan Discharge Details Chief Complaint: PsychEval Clinical Impression: Depression, Homeless, Feeling like committing suicide, Moderate substance use disorder Primary Care Provider: Joel Martinez ED Provider: Phyllis Chapin Home Meds and New Rx's Prescriptions: No Action No Known Home Meds
[2024-05-14 07:09] VITALS: BP 92/63; PULSE 92; TEMP 35.9; O2SAT 99
--- NOTE | 2024-05-14 07:36 | ED.PROG_ITS ---
Date of service: 05/14/24 Time of Service: 07:36 Medical Decision Making Patient seeking voluntary placement for polysubstance abuse and thoughts of self-harm, no reported issues on prior shift and currently, cooperative without acute complaints will continue to monitor until safe disposition found Quality:SDOH Health Related Social Needs: Health related social needs housing instability, house d, with risk of homelessness(Z59.811), food insecurity(Z59.41), transportation insecurity(Z59.82), material hardship(utilities)(Z59.87), problem related to primary support group(Z63.9) Health related social needs details homeless Sign Out Sign Out Data: Sign Out Comment: Depressed, suicidal, has a plan, has a history of alcohol and drug use. Currently on Librium 25mg 3 times daily and clonidine patch. If symptoms worsen, it would be reasonable to start on buprenorphine or Suboxone, as well as potentially increase Librium as needed. Pending placement. Voluntary. Last updated by Jarrod Vaughn DO at 05/10/24 15:55 Sign Out Comment: Patient seeking voluntary placement for depression and SI and also substance abuse. Currently on Librium for potential alcohol withdrawal and also placed on a clonidine patch. Last updated by Alex Avendaño MD at 05/10/24 19:23 Sign Out Comment: 39-year-old male patient with polysubstance use disorder, here in the emergency department with suicidal ideation and a plan to overdose, as well as withdrawal symptoms. It is written for a Librium taper, would be amenable to discuss Suboxone maintenance therapy in the future as the Librium was tapered off. Has not required any chemical or physical restraint, does have some Toradol for body pain. Remains voluntary, would require reassessment if he wanted to leave, no beds at [place] today. Last updated by Sulma Henson MD at 05/11/24 16:28 Sign Out Comment: Voluntary Pending Placement reassess if decides to leave SI with plan to OD polysubstance abuse with withdrawal, feeling better on librium no issues during my shift Last updated by Celina Tse MD at 05/11/24 21:28 Sign Out Comment: Patient here voluntarily seeking placement. Patient has suic idal ideation. Alcohol use disorder as well as opioid use disorder. Scheduled Librium initiated as well as breakthrough Ativan. Today patient requested treatment for opioid withdrawal. Suboxone initiated and provided significant relief. This has been scheduled daily. Patient awaiting psychiatric treatment facility placement. Last updated by Luis Hill MD at 05/12/24 16:19 Sign Out Comment: The patient is a 39-year-old male who is in the emergency department for polysubstance use disorder. Patient currently receiving Librium, Ativan as needed and Suboxone. Patient is comfortable with this medication regimen. Patient had no issue in the afternoon. Still waiting for bed placement at this point. Last updated by Lindsey Morin DO at 05/12/24 23:20 Sign Out Comment: 39M, polysubstance abuse, SI pending voluntary placement. Librium for ETOH withdrawal, suboxone for opiate withdrawal. Last updated by Phyllis Chapin MD at 05/13/24 06:27 Sign Out Comment: 39M, polysubstance abuse, presenting with SI. Librium for ETOH withdrawal, suboxone for opiate withdrawal. Pending voluntary placement. Last updated by Phyllis Chapin MD at 05/14/24 05:36 Discharge Plan Discharge Details Chief Complaint: PsychEval Clinical Impression: Depression, Homeless, Feeling like committing suicide, Moderate substance use disorder Primary Care Provider: Joel Martinez ED Provider: Alex Avendaño Home Meds and New Rx's Prescriptions: No Action No Known Home Meds
[2024-05-14] MEDS: Buprenorphine/Naloxone 8 mg/2 mg FILM 1 EACH SL (07:57)
[2024-05-14] MEDS: Sulfameth/Trimeth DS TAB 1 TAB PO ×2 (07:58→21:17)
[2024-05-14] MEDS: chlordiazePOXIDE 25 MG CAP PO ×2 (07:59→21:17)
[2024-05-14] MEDS: Nicotine 14 MG/24 HR PATCH TD (08:10)
[2024-05-14] MEDS: Ketorolac 10 MG TAB PO ×3 (12:52→21:17)
[2024-05-14] MEDS: LORazepam 1 MG TAB 2 MG PO ×3 (12:53→21:18)
--- NOTE | 2024-05-14 16:55 | CMSP_ITS ---
Care Management Safety Plan Status Status: Voluntary Reason for Wait Reason for Wait: Inpatient Admission Safety Plan Safety Plan: VOLUNTARY FOR INPATIENT PSYCHIATRIC STABILIZATION.? Patient is appropriate in all interactions since arriving at [facility]; Pt has demonstrated appropriate coping and communication skills, has articulated his or her needs and concerns and is fully engaged during staff interactions. Safety plan has been established with patient, and care team, to adhere to patient goals, identify restrictions based on behavioral status, address nutrition, and determine allowed personal belongings, tools for hygiene and personal care. Determine level of activity including ambulation, level of supervision, visitors, and determine privileges based on behaviors and level of engagement by pt. Per [facility], there are likely no beds this weekend, although they will continue to check with the hospitals daily. No dispo updates per [facility], CM reviewed with RN Cloth Framer and primary RN. SAFETY PLAN: 1. Will remain on suicide precautions; he may have his own sweatpants (strings removed), and a jacob shirt, per RN discretion. 2. Will remain in room under direct supervision of one-on-one staff at all times provided by [employer]; ATIYA, TRIAGE REGISTERED NURSE senior adults director. 3. May have paper cups, plates, finger foods as well as a cardboard spoon with which to eat meals. 4. Follow [facility] Management of the Admitted Behavioral Health Patient policy. 5. Comfort bath system, shower permitted with escort at RN discretion. 6. Personal belongings-soft items permitted at RN discretion. 7. Visitors-none at this time. 8. Activities: soft cart items approved per RN discretion. 9.? Bathroom privileges with escort in the ED. 10. Phone: limited to cordless phone at RN discretion. Due to VOLUNTARY status, if patient wishes to leave [facility], staff will contact [facility] Crisis Screener ([phone]) and On-Call Plan Examiner ([phone]) as soon as possible. In the event of elopement, notify [place] [employer] Police ([phone]). Patient is currently voluntarily at [facility] and seeking inpatient admission when a bed becomes available. [facility] Frontline Jewelry Consultant will continue seeking placement. Please contact the Software Release Engineer Plan Examiner ([phone]) and [facility] Jewelry Consultant ([phone]) for any needed changes in the Safety Plan. Safety plan has been provided to interdepartmental care team.
--- NOTE | 2024-05-14 16:55 | PDOC.CMSAFE ---
Care Management Safety Plan Status Status: Voluntary Reason for Wait Reason for Wait: Inpatient Admission Safety Plan Safety Plan: VOLUNTARY FOR INPATIENT PSYCHIATRIC STABILIZATION.? Patient is appropriate in all interactions since arriving at [facility]; Pt has demonstrated appropriate coping and communication skills, has articulated his or her needs and concerns and is fully engaged during staff interactions. Safety plan has been established with patient, and care team, to adhere to patient goals, identify restrictions based on behavioral status, address nutrition, and determine allowed personal belongings, tools for hygiene and personal care. Determine level of activity including ambulation, level of supervision, visitors, and determine privileges based on behaviors and level of engagement by pt. Per [facility], there are likely no beds this weekend, although they will continue to check with the hospitals daily. No dispo updates per [facility], CM reviewed with RN Records Management Technician and primary RN. SAFETY PLAN: 1. Will remain on suicide precautions; he may have his own sweatpants (strings removed), and a jacob shirt, per RN discretion. 2. Will remain in room under direct supervision of one-on-one staff at all times provided by [employer]; ATIYA, CLINICAL FELLOW travel counselor. 3. May have paper cups, plates, finger foods as well as a cardboard spoon with which to eat meals. 4. Follow [facility] Management of the Admitted Behavioral Health Patient policy. 5. Comfort bath system, shower permitted with escort at RN discretion. 6. Personal belongings-soft items permitted at RN discretion. 7. Visitors-none at this time. 8. Activities: soft cart items approved per RN discretion. 9.? Bathroom privileges with escort in the ED. 10. Phone: limited to cordless phone at RN discretion. Due to VOLUNTARY status, if patient wishes to leave [facility], staff will contact [facility] Crisis Screener ([phone]) and On-Call Billet Heater ([phone]) as soon as possible. In the event of elopement, notify [place] [employer] ([phone]). Patient is currently voluntarily at [facility] and seeking inpatient admission when a bed becomes available. [facility] Frontline Special Educator will continue seeking placement. Please contact the Corncob Pipes Assembler Billet Heater ([phone]) and [facility] Special Educator ([phone]) for any needed changes in the Safety Plan. Safety plan has been provided to interdepartmental care team.
--- NOTE | 2024-05-14 20:48 | MHPN_ITS ---
Date of service: 05/14/24 Time of Service: 02:30 Mental Health Emergency Note Release [facility] release signed:: No Reason for Visit SI/SA In the last 2 weeks has the pt presented for ES prior to today?: Yes, presented at (Reassessment) [facility] Impression Ct is a 39-year-old male presenting for reassessment at [facility]. Ct was oriented across all spheres and reported SI while denying HI. Ct expressed feelings of hopelessness, increased sadness, and tearfulness. Ct was cooperative and calm throughout the assessment, with speech rate and rhythm WNL. Ct expressed low motivation and negative self-thoughts, stating, Everyone's just laying down and sleeping. He reported using exercise as a coping skill but shared that he is struggling with not being able to move around as much as he would like, which has contributed to his challenges in maintaining a positive outlook. This writer technical publications provided empathic listening and validated Ct?s feelings regarding the challenges of recovery. Ct shared poetry he had written, noting it as a form of self-expression. Ct expressed discouragement about the time it is taking to secure placement but stated, Following this to the endSabrina would want me to, and I need to for my son; he will need me someday. Ct reported a decrease in nausea, eating today, and improved sleep. Ct will remain at [facility] awaiting voluntary placement. Ct continues to present in the contemplative stage of recovery. Plan/Disposition Recommended Disposition: Hospitalization facilities contacted. Plan: Will remain at [facility] awaiting voluntary placement, currently no beds are available Reports/communication Outcome discussed with: ED/Personnel (Dr. Avendaño)
[2024-05-14 21:25] VITALS: BP 93/56; PULSE 77; RESP 16; TEMP 36.6; O2SAT 99
--- NOTE | 2024-05-15 06:14 | W.EDPROG ---
Date of service: 05/14/24 Time of Service: 22:15 Medical Decision Making This patient was signed out to me. Please see previous notes for H&P and initial eval. In brief, 39yo M with hx polysubstance use and depression presenting with SI. Medically cleared, pending voluntary inpatient placement. Overnight no acute events. Will be signed out to oncoming physician, plan remains as above. Quality:SDOH Health Related Social Needs: Health related social needs housing instability, housed, with risk of homelessness(Z59.811), food insecurity(Z59.41), transportation insecurity(Z59.82), material hardship(utilities)(Z59.87), problem related to primary support group(Z63.9) Health related social needs details homeless Sign Out Sign Out Data: Sign Out Comment: Depressed, suicidal, has a plan, has a history of alcohol and drug use. Currently on Librium 25mg 3 times daily and clonidine patch. If symptoms worsen, it would be reasonable to start on buprenorphine or Suboxone, as well as potentially increase Librium as needed. Pending placement. Voluntary. Last updated by Jarrod Vaughn DO at 05/10/24 15:55 Sign Out Comment: Voluntary placement, no issues throughout shift. Polysubstance and SI. Last updated by Jarrod Vaughn DO at 05/14/24 22:04 Sign Out Comment: Patient seeking voluntary placement for depression and SI and also substance abuse. Currently on Librium for potential alcohol withdrawal and also placed on a clonidine patch. Last updated by Alex Avendaño MD at 05/10/24 19:23 Sign Out Comment: 39-year-old male patient with polysubstance use disorder, here in the emergency department with suicidal ideation and a plan to overdose, as well as withdrawal symptoms. It is written for a Librium taper, would be amenable to discuss Suboxone maintenance therapy in the future as the Librium was tapered off. Has not required any chemical or physical restraint, does have some Toradol for body pain. Remains voluntary, would require reassessment if he wanted to leave, no beds at [place] today. Last updated by Sulma Henson MD at 05/11/24 16:28 Sign Out Comment: Voluntary Pending Placement reassess if decides to leave SI with plan to OD polysubstance abuse with withdrawal, feeling better on librium no issues during my shift Last updated by Celina Tse MD at 05/11/24 21:28 Sign Out Comment: Patient here voluntarily seeking placement. Patient has suicidal ideation. Alcohol use disorder as well as opioid use disorder. Scheduled Librium initiated as well as breakthrough Ativan. Today patient requested treatment for opioid withdrawal. Suboxone initiated and provided significant relief. This has been scheduled daily. Patient awaiting psychiatric treatment facility placement. Last updated by Luis Hill MD at 05/12/24 16:19 Sign Out Comment: The patient is a 39-year-old male who is in the emergency department for polysubstance use disorder. Patient currently receiving Librium, Ativan as needed and Suboxone. Patient is comfortable with this medication regimen. Patient had no issue in the afternoon. Still waiting for bed placement at this point. Last updated by Lindsey Morin DO at 05/12/24 23:20 Sign Out Comment: 39M, polysubstance abuse, SI pending voluntary placement. Librium for ETOH withdrawal, suboxone for opiate withdrawal. Last updated by Phyllis Chapin MD at 05/13/24 06:27 Sign Out Comment: 39M, polysubstance abuse, presenting with SI. Librium for ETOH withdrawal, suboxone for opiate withdrawal. Pending voluntary placement. Last updated by Phyllis Chapin MD at 05/14/24 05:36 Sign Out Comment: Seeking voluntary placement for thoughts of self-harm and polysubstance abuse, no issues during shift Last updated by Alex Avendaño MD at 05/14/24 16:10 Discharge Plan Discharge Details Chief Complaint: PsychEval Clinical Impression: Depression, Homeless, Feeling like committing suicide, Moderate substance use disorder Primary Care Provider: Joel Martinez ED Provider: Phyllis Chapin Home Meds and New Rx's Prescriptions: No Action No Known Home Meds
[2024-05-15 07:35] VITALS: BP 112/73; PULSE 78; RESP 18; TEMP 36.8; O2SAT 97
--- NOTE | 2024-05-15 07:38 | W.EDPROG ---
Date of service: 05/15/24 Time of Service: 07:38 Medical Decision Making I received signout on this 39-year-old patient in the emergency department voluntarily in the setting of suicidal ideation. Patient is on Suboxone and Librium. No active behavioral issues last shift. Will document clinical updates as warranted and signed patient out to oncoming evening provider. 4:40 PM No active behavioral issues last shift. Will sign patient out to oncoming evening provider. Quality:SDOH Health Related Social Needs: Health related social needs housing instability, housed, with risk of homelessness(Z59.811), food insecurity(Z59.41), transportation insecurity(Z59.82), material hardship(utilities)(Z59.87), problem related to primary support group(Z63.9) Health related social needs details homeless Sign Out Sign Out Data: Sign Out Comment: Depressed, suicidal, has a plan, has a history of alcohol and drug use. Currently on Librium 25mg 3 times daily and clonidine patch. If symptoms worsen, it would be reasonable to start on buprenorphine or Suboxone, as well as potentially increase Librium as needed. Pending placement. Voluntary. Last updated by Jarrod Vaughn DO at 05/10/24 15:55 Sign Out Comment: Voluntary placement, no issues throughout shift. Polysubstance and SI. Last updated by Jarrod Vaughn DO at 05/14/24 22:04 Sign Out Comment: 39yo M with polysubstance abuse, SI, medically cleared, pending voluntary placement. No issues overnight. Last updated by Phyllis Chapin MD at 05/15/24 07:17 Sign Out Comment: Patient seeking voluntary placement for depression and SI and also substance abuse. Currently on Librium for potential alcohol withdrawal and also placed on a clonidine patch. Last updated by Alex Avendaño MD at 05/10/24 19:23 Sign Out Comment: 39-year-old male patient with polysubstance use disorder, here in the emergency department with suicidal ideation and a plan to overdose, as well as withdrawal symptoms. It is written for a Librium taper, would be amenable to discuss Suboxone maintenance therapy in the future as the Librium was tapered off. Has not required any chemical or physical restraint, does have some Toradol for body pain. Remains voluntary, would require reassessment if he wanted to leave, no beds at [place] today. Last updated by Sulma Henson MD at 05/11/24 16:28 Sign Out Comment: Voluntary Pending Placement reassess if decides to leave SI with plan to OD polysubstance abuse with withdrawal, feeling better on librium no issues during my shift Last updated by Celina Tse MD at 05/11/24 21:28 Sign Out Comment: Patient here voluntarily seeking placement. Patient has suicidal ideation. Alcohol use disorder as well as opioid use disorder. Scheduled Librium initiated as well as breakthrough Ativan. Today patient requested treatment for opioid withdrawal. Suboxone initiated and provided significant relief. This has been scheduled daily. Patient awaiting psychiatric treatment facility placement. Last updated by Luis Hill MD at 05/12/24 16:19 Sign Out Comment: The patient is a 39-year-old male who is in the emergency department for polysubstance use disorder. Patient currently receiving Librium, Ativan as needed and Suboxone. Patient is comfortable with this medication regimen. Patient had no issue in the afternoon. Still waiting for bed placement at this point. Last updated by Lindsey Morin DO at 05/12/24 23:20 Sign Out Comment: 39M, polysubstance abuse, SI pending voluntary placement. Librium for ETOH withdrawal, suboxone for opiate withdrawal. Last updated by Phyllis Chapin MD at 05/13/24 06:27 Sign Out Comment: 39M, polysubstance abuse, presenting with SI. Librium for ETOH withdrawal, suboxone for opiate withdrawal. Pending voluntary placement. Last updated by Phyllis Chapin MD at 05/14/24 05:36 Sign Out Comment: Seeking voluntary placement for thoughts of self-harm and polysubstance abuse, no issues during shift Last updated by Alex Avendaño MD at 05/14/24 16:10 Discharge Plan Discharge Details Chief Complaint: PsychEval Clinical Impression: Depression, Homeless, Feeling like committing suicide, Moderate substance use disorder Primary Care Provider: Joel Martinez ED Provider: Nik Peña Home Meds and New Rx's Prescriptions: No Action No Known Home Meds
[2024-05-15] MEDS: Sulfameth/Trimeth DS TAB 1 TAB PO ×2 (07:59→20:05)
[2024-05-15] MEDS: Buprenorphine/Naloxone 8 mg/2 mg FILM 1 EACH SL (07:59)
[2024-05-15] MEDS: chlordiazePOXIDE 25 MG CAP PO (08:00)
[2024-05-15] MEDS: LORazepam 1 MG TAB 2 MG PO (15:18)
--- NOTE | 2024-05-15 17:34 | PDOC.CMSAFE ---
Date of service: 05/15/24 Time of Service: 17:34 Care Management Safety Plan Status Status: Voluntary Reason for Wait Reason for Wait: Inpatient Admission Safety Plan Safety Plan: VOLUNTARY FOR INPATIENT PSYCHIATRIC STABILIZATION.? Patient is appropriate in all interactions since arriving at [facility]; Pt has demonstrated appropriate coping and communication skills, has articulated his or her needs and concerns and is fully engaged during staff interactions. Safety plan has been established with patient, and care team, to adhere to patient goals, identify restrictions based on behavioral status, address nutrition, and determine allowed personal belongings, tools for hygiene and personal care. Determine level of activity including ambulation, level of supervision, visitors, and determine privileges based on behaviors and level of engagement by pt. SAFETY PLAN: 1. Will remain on suicide precautions; he may have his own sweatpants (strings removed), and a jacob shirt, per RN discretion. 2. Will remain in room under direct supervision of one-on-one staff at all times provided by [employer]; ATIYA, PROCESS VALIDATION ENGINEER burning supervisor. 3. May have paper cups, plates, finger foods as well as a cardboard spoon with which to eat meals. 4. Follow [facility] Management of the Admitted Behavioral Health Patient policy. 5. Comfort bath system, shower permitted with escort at RN discretion. 6. Personal belongings-soft items permitted at RN discretion. 7. Visitors-none at this time. 8. Activities: soft cart items approved per RN discretion. 9.? Bathroom privileges with escort in the ED. 10. Phone: limited to cordless phone at RN discretion. Due to VOLUNTARY status, if patient wishes to leave [facility], staff will contact [facility] Crisis Screener ([phone]) and On-Call Ethnic Studies Professor ([phone]) as soon as possible. In the event of elopement, notify [place] [employer] ([phone]). Patient is currently voluntarily at [facility] and seeking inpatient admission when a bed becomes available. [facility] Frontline Sailboat Captain will continue seeking placement. Please contact the Duct Installer Ethnic Studies Professor ([phone]) and [facility] Sailboat Captain ([phone]) for any needed changes in the Safety Plan. Safety plan has been provided to interdepartmental care team.
--- NOTE | 2024-05-15 17:35 | PDOC.CMPRO ---
Date of service: 05/15/24 Time of Service: 17:35 Care Management Progress Note Progress Note Text Progress Note Text: met with staff to discuss Jose's plan of care, including his RN, ATIYA/[employer], and MASHA Bertrand (separately). Jose was present during some of the conversation and was pleasant and cooperative. Per RN, Jose has been appropriate in interactions throughout his stay; he has been tearful at times, as he is dealing with complex grief. Per NK, Jose was declined by the care bed, which was presented as a potential option for community placement. [facility] contacted [facility] care management at CM's request, as Jose has been waiting for an inpatient psychiatric bed for over 120 hours. [facility] care management is reaching out to [facility]. Jose remains voluntary for inpatient psychiatric treatment. No changes to his safety plan today. CM will continue to follow.
--- NOTE | 2024-05-15 22:08 | ED.PROG_ITS ---
Date of service: 05/15/24 Time of Service: 22:09 Medical Decision Making Care assumed from outgoing provider. Patient is a 39-year-old gentleman currently pending voluntary inpatient placement. Patient has been in the emergency department for 5 days. At this time there are no issues of concern. Quality:SDOH Health Related Social Needs: Health related social needs housing instability, house d, with risk of homelessness(Z59.811), food insecurity(Z59.41), transportation insecurity(Z59.82), material hardship(utilities)(Z59.87), problem related to primary support group(Z63.9) Health related social needs details homeless Sign Out Sign Out Data: Sign Out Comment: Depressed, suicidal, has a plan, has a history of alcohol and drug use. Currently on Librium 25mg 3 times daily and clonidine patch. If symptoms worsen, it would be reasonable to start on buprenorphine or Suboxone, as well as potentially increase Librium as needed. Pending placement. Voluntary. Last updated by Jarrod Vaughn DO at 05/10/24 15:55 Sign Out Comment: Voluntary placement, no issues throughout shift. P olysubstance and SI. Last updated by Jarrod Vaughn DO at 05/14/24 22:04 Sign Out Comment: 39yo M with polysubstance abuse, SI, medically cleared, pending voluntary placement. No issues overnight. Last updated by Phyllis Chapin MD at 05/15/24 07:17 Sign Out Comment: 39-year-old male polysubstance abuse SI medically cleared pending voluntary placement. No active behavioral issues. Last updated by Nik Peña MD at 05/15/24 16:50 Sign Out Comment: Patient seeking voluntary placement for depression and SI and also substance abuse. Currently on Librium for potential alcohol withdrawal and also placed on a clonidine patch. Last updated by Alex Avendaño MD at 05/10/24 19:23 Sign Out Comment: 39-year-old male patient with polysubstance use disorder, here in the emergency department with suicidal ideation and a plan to overdose, as well as withdrawal symptoms. It is written for a Librium taper, would be amenable to discuss Suboxone maintenance therapy in the future as the Librium was tapered off. Has not required any chemical or physical restraint, does have some Toradol for body pain. Remains voluntary, would require reassessment if he wanted to leave, no beds at [place] today. Last updated by Sulma Henson MD at 05/11/24 16:28 Sign Out Comment: Voluntary Pending Placement reassess if decides to leave SI with plan to OD polysubstance abuse with withdrawal, feeling better on librium no issues during my shift Last updated by Celina Tse MD at 05/11/24 21:28 Sign Out Comment: Patient here voluntarily seeking placement. Patient has suicidal ideation. Alcohol use disorder as well as opioid use disorder. Scheduled Librium initiated as well as breakthrough Ativan. Today patient requested treatment for opioid withdrawal. Suboxone initiated and provided significant relief. This has been scheduled daily. Patient awaiting psychiatric treatment facility placement. Last updated by Luis Hill MD at 05/12/24 16:19 Sign Out Comment: The patient is a 39-year-old male who is in the emergency department for polysubstance use disorder. Patient currently receiving Librium, Ativan as needed and Suboxone. Patient is comfortable with this medication regimen. Patient had no issue in the afternoon. Still waiting for bed placement at this point. Last updated by Lindsey Morin DO at 05/12/24 23:20 Sign Out Comment: 39M, polysubstance abuse, SI pending voluntary placement. Librium for ETOH withdrawal, suboxone for opiate withdrawal. Last updated by Phyllis Chapin MD at 05/13/24 06:27 Sign Out Comment: 39M, polysubstance abuse, presenting with SI. Librium for E ELVA withdrawal, suboxone for opiate withdrawal. Pending voluntary placement. Last updated by Phyllis Chapin MD at 05/14/24 05:36 Sign Out Comment: Seeking voluntary placement for thoughts of self-harm and polysubstance abuse, no issues during shift Last updated by Alex Avendaño MD at 05/14/24 16:10 Discharge Plan Discharge Details Chief Complaint: PsychEval Clinical Impression: Depression, Homeless, Feeling like committing suicide, Moderate substance use disorder Primary Care Provider: Joel Martinez ED Provider: Celina Tse Home Meds and New Rx's Prescriptions: No Action No Known Home Meds
[2024-05-16] MEDS: LORazepam 1 MG TAB 2 MG PO ×2 (02:16→12:04)
--- NOTE | 2024-05-16 05:40 | NUR.NOTE ---
[facility] called and stated there are no beds available.
--- NOTE | 2024-05-16 06:30 | W.EDPROG ---
Date of service: 05/15/24 Time of Service: 23:00 Medical Decision Making This patient was signed out to me. Please see previous notes for H&P and initial eval. In brief, 39yo M with hx polysubstance use and depression presenting with SI. Medically cleared, remains in the ED pending voluntary inpatient placement. No acute events overnight. Will be signed out to oncoming physician, plan remains as above. Quality:SDOH Health Related Social Needs: Health related social needs housing instability, housed, with risk of homelessness(Z59.811), food insecurity(Z59.41), transportation insecurity(Z59.82), material hardship(utilities)(Z59.87), problem related to primary support group(Z63.9) Health related social needs details homeless Sign Out Sign Out Data: Sign Out Comment: Depressed, suicidal, has a plan, has a history of alcohol and drug use. Currently on Librium 25mg 3 times daily and clonidine patch. If symptoms worsen, it would be reasonable to start on buprenorphine or Suboxone, as well as potentially increase Librium as needed. Pending placement. Voluntary. Last updated by Jarrod Vaughn DO at 05/10/24 15:55 Sign Out Comment: Voluntary placement, no issues throughout shift. Polysubstance and SI. Last updated by Jarrod Vaughn DO at 05/14/24 22:04 Sign Out Comment: 39yo M with polysubstance abuse, SI, medically cleared, pending voluntary placement. No issues overnight. Last updated by Phyllis Chapin MD at 05/15/24 07:17 Sign Out Comment: 39-year-old male polysubstance abuse SI medically cleared pending voluntary placement. No active behavioral issues. Last updated by Nik Peña MD at 05/15/24 16:50 Sign Out Comment: Pending voluntary inpatient psychiatric placement History of polysubstance abuse, SI Medically cleared Last updated by Celina Tse MD at 05/15/24 22:11 Sign Out Comment: Patient seeking voluntary placement for depression and SI and also substance abuse. Currently on Librium for potential alcohol withdrawal and also placed on a clonidine patch. Last updated by Alex Avendaño MD at 05/10/24 19:23 Sign Out Comment: 39-year-old male patient with polysubstance use disorder, here in the emergency department with suicidal ideation and a plan to overdose, as well as withdrawal symptoms. It is written for a Librium taper, would be amenable to discuss Suboxone maintenance therapy in the future as the Librium was tapered off. Has not required any chemical or physical restraint, does have some Toradol for body pain. Remains voluntary, would require reassessment if he wanted to leave, no beds at [place] today. Last updated by Sulma Henson MD at 05/11/24 16:28 Sign Out Comment: Voluntary Pending Placement reassess if decides to leave SI with plan to OD polysubstance abuse with withdrawal, feeling better on librium no issues during my shift Last updated by Celina Tse MD at 05/11/24 21:28 Sign Out Comment: Patient here voluntarily seeking placement. Patient has suicidal ideation. Alcohol use disorder as well as opioid use disorder. Scheduled Librium initiated as well as breakthrough Ativan. Today patient requested treatment for opioid withdrawal. Suboxone initiated and provided significant relief. This has been scheduled daily. Patient awaiting psychiatric treatment facility placement. Last updated by Luis Hill MD at 05/12/24 16:19 Sign Out Comment: The patient is a 39-year-old male who is in the emergency department for polysubstance use disorder. Patient currently receiving Librium, Ativan as needed and Suboxone. Patient is comfortable with this medication regimen. Patient had no issue in the afternoon. Still waiting for bed placement at this point. Last updated by Lindsey Morin DO at 05/12/24 23:20 Sign Out Comment: 39M, polysubstance abuse, SI pending voluntary placement. Librium for ETOH withdrawal, suboxone for opiate withdrawal. Last updated by Phyllis Chapin MD at 05/13/24 06:27 Sign Out Comment: 39M, polysubstance abuse, presenting with SI. Librium for ETOH withdrawal, suboxone for opiate withdrawal. Pending voluntary placement. Last updated by Phyllis Chapin MD at 05/14/24 05:36 Sign Out Comment: Seeking voluntary placement for thoughts of self-harm and polysubstance abuse, no issues during shift Last updated by Alex Avendaño MD at 05/14/24 16:10 Discharge Plan Discharge Details Chief Complaint: PsychEval Clinical Impression: Depression, Homeless, Feeling like committing suicide, Moderate substance use disorder Primary Care Provider: Joel Martinez ED Provider: Phyllis Chapin Home Meds and New Rx's Prescriptions: No Action No Known Home Meds
[2024-05-16 07:08] VITALS: BP 110/63; PULSE 74; RESP 17; TEMP 36.1; O2SAT 97
--- NOTE | 2024-05-16 07:36 | W.EDPROG ---
Date of service: 05/16/24 Time of Service: 07:36 Medical Decision Making I received signout on this 39-year-old male in the emergency department voluntarily in setting of suicidal ideation. No active behavioral issues last shift. Will update documentation as clinically warranted and signed patient out to the oncoming evening provider. 11 AM I spoke to Hawa from [facility]. She reported that the patient had been offered an LBTQ bed at [facility] which patient declined. Patient also requested something to sleep at night for which I ordered melatonin. Patient also reportedly had been on antipsychotics in the past so I ordered a psychiatric consultation. 12:15 PM Patient was feeling anxious in the emergency department. He is receiving his as needed lorazepam and Toradol. He has been accepted to [facility]. Will sign transfer paperwork. 12:52 PM I spoke with Dr. Nice from psychiatry. He advised no new medications. He advised patient will be appropriate for voluntary hospitalization. Will continue to monitor. 3:38 PM Patient had been accepted to [facility] with transportation arranged in the morning. He was due to take his home medications prior to transfer. Subsequently he wanted to be discharged. Hawa from [facility] that with the patient and provided him a safety plan. He is on buprenorphine/naloxone and clonidine. Will ensure that he is not suicidal and will ensure that his home medications are prescribed. 3:45 PM Met with the patient and he was not feeling suicidal nor homicidal. I advised ED return to the emergency department if you he did not feel safe in the community. Will prescribe him 2 additional days of trimethoprim/sulfamethoxazole for his left posterior forearm cellulitis which was already draining per provider who saw him 3 days ago. Will also prescribe him Suboxone. Given that he has been in the emergency department for 6 days I am not suspicious for withdrawal from alcohol. Quality:SDOH Health Related Social Needs: Health related social needs housing instability, housed, with risk of homelessness(Z59.811), food insecurity(Z59.41), transportation insecurity(Z59.82), material hardship(utilities)(Z59.87), problem related to primary support group(Z63.9) Health related social needs details homeless Sign Out Sign Out Data: Sign Out Comment: Depressed, suicidal, has a plan, has a history of alcohol and drug use. Currently on Librium 25mg 3 times daily and clonidine patch. If symptoms worsen, it would be reasonable to start on buprenorphine or Suboxone, as well as potentially increase Librium as needed. Pending placement. Voluntary. Last updated by Jarrod Vaughn DO at 05/10/24 15:55 Sign Out Comment: Voluntary placement, no issues throughout shift. Polysubstance and SI. Last updated by Jarrod Vaughn DO at 05/14/24 22:04 Sign Out Comment: 39yo M with polysubstance abuse, SI, medically cleared, pending voluntary placement. No issues overnight. Last updated by Phyllis Chapin MD at 05/15/24 07:17 Sign Out Comment: 39-year-old male polysubstance abuse SI medically cleared pending voluntary placement. No active behavioral issues. Last updated by Nik Peña MD at 05/15/24 16:50 Sign Out Comment: Pending voluntary inpatient psychiatric placement History of polysubstance abuse, SI Medically cleared Last updated by Celina Tse MD at 05/15/24 22:11 Sign Out Comment: 39M, polysubstance abuse, presenting with SI. Pending voluntary placement. Last updated by Phyllis Chapin MD at 05/16/24 07:29 Sign Out Comment: Patient seeking voluntary placement for depression and SI and also substance abuse. Currently on Librium for potential alcohol withdrawal and also placed on a clonidine patch. Last updated by Alex Avendaño MD at 05/10/24 19:23 Sign Out Comment: 39-year-old male patient with polysubstance use disorder, here in the emergency department with suicidal ideation and a plan to overdose, as well as withdrawal symptoms. It is written for a Librium taper, would be amenable to discuss Suboxone maintenance therapy in the future as the Librium was tapered off. Has not required any chemical or physical restraint, does have some Toradol for body pain. Remains voluntary, would require reassessment if he wanted to leave, no beds at [place] today. Last updated by Sulma Henson MD at 05/11/24 16:28 Sign Out Comment: Voluntary Pending Placement reassess if decides to leave SI with plan to OD polysubstance abuse with withdrawal, feeling better on librium no issues during my shift Last updated by Celina Tse MD at 05/11/24 21:28 Sign Out Comment: Patient here voluntarily seeking placement. Patient has suicidal ideation. Alcohol use disorder as well as opioid use disorder. Scheduled Librium initiated as well as breakthrough Ativan. Today patient requested treatment for opioid withdrawal. Suboxone initiated and provided significant relief. This has been scheduled daily. Patient awaiting psychiatric treatment facility placement. Last updated by Luis Hill MD at 05/12/24 16:19 Sign Out Comment: The patient is a 39-year-old male who is in the emergency department for polysubstance use disorder. Patient currently receiving Librium, Ativan as needed and Suboxone. Patient is comfortable with this medication regimen. Patient had no issue in the afternoon. Still waiting for bed placement at this point. Last updated by Lindsey Morin DO at 05/12/24 23:20 Sign Out Comment: 39M, polysubstance abuse, SI pending voluntary placement. Librium for ETOH withdrawal, suboxone for opiate withdrawal. Last updated by Phyllis Chapin MD at 05/13/24 06:27 Sign Out Comment: 39M, polysubstance abuse, presenting with SI. Librium for ETOH withdrawal, suboxone for opiate withdrawal. Pending voluntary placement. Last updated by Phyllis Chapin MD at 05/14/24 05:36 Sign Out Comment: Seeking voluntary placement for thoughts of self-harm and polysubstance abuse, no issues during shift Last updated by Alex Avendaño MD at 05/14/24 16:10 Discharge Plan Discharge Details Chief Complaint: PsychEval Clinical Impression: Depression, Homeless, Feeling like committing suicide, Moderate substance use disorder, Cellulitis of arm, left Primary Care Provider: Joel Martinez ED Provider: Nik Peañ Kerkhoven Meds and New Rx's Prescriptions: New buprenorphine-naloxone [Suboxone] 8-2 mg film 1 film buccal Q24H Qty: 30 0RF sulfamethoxazole-trimethoprim [Bactrim DS] 800-160 mg tablet 1 tab PO BID 2 Days Qty: 4 0RF Discharge Instructions Instructions: Cellulitis (Skin Infection), Adult ED Additional Instructions: You are seen in the emergency department for your thoughts of self-harm. You have been offered a hospitalization in right lung which you declined. Please take these antibiotics as directed and return if you develop streaking signs of infection or any fevers. Please also return if you do not feel safe in the community.
[2024-05-16] MEDS: Sulfameth/Trimeth DS TAB 1 TAB PO (07:54)
[2024-05-16] MEDS: Nicotine 14 MG/24 HR PATCH TD (07:54)
[2024-05-16] MEDS: Buprenorphine/Naloxone 8 mg/2 mg FILM 1 EACH SL (07:54)
--- NOTE | 2024-05-16 10:21 | NUR.NOTE ---
Nursing Note: Pt was moving the furniture in the common area in Zone [address]. CPSO attempted to get him to stop due to understanding that this is typically something that is not allowed. The patient then got agitated, told her to stop being a bitch. I then entered the hallway with the patient, understanding that he has been allowed to move the furniture since admission to provide himself a place for exercise, I told him that I am going to continue to allow it but he needs to be calm, not be disrespectful to the staff, no name calling, and if there is any evidence or concern that he is becoming inappropriate, agitated, and risk for escalating I am going to put a stop to it. He agreed with the terms, was quickly redirected and calmed down. He is currently doing his exercises in the common area of zone B.
[2024-05-16] MEDS: Ketorolac 10 MG TAB PO (12:04)
--- NOTE | 2024-05-16 12:48 | W.TELEPSYCH ---
Date of service: 05/16/24 Time of Service: 12:48 Summary Note PSYCHIATRY CONSULT NOTE: INITIAL EVALUATION Date/Time:?05/16/2024 12:47:49 PM Name:Claudia Haskins :?1985 Location of the patient:?[facility] ED Consulting Array Clinician:?Mikael Villagran Location of the clinician:?[facility] Length of Consult:? SUMMARY 39-year-old male, with history of PTSD, depressive disorder, polysubstance abuse, current cocaine/cannabis/amphetamine/opioid use, history of suicide attempt(s), history of psychiatric hospitalization, with no history of violent behavior, self-referred for suicidal ideation. Based on evaluation patient is endorsing symptoms of depression, endorsing suicidal ideation with no intent or plan. He has not addiction to multiple substances. Patient at this time is willing to get help and seek treatment for his depression and substance abuse.Patient is at elevated risk of danger to self. Patient presently meets criteria for inpatient psychiatric hospitalization. Working Diagnoses:? F33.1 Major depressive disorder, recurrent, moderate Rule Out Diagnoses:? CPT Codes:?09430 - Psychiatric Diagnostic Evaluation with Medical Services PLAN Disposition:?Voluntary admission when medically stable. Patient understands recommendation for psychiatric admission and consents. Re-consult psychiatry/screening if patient requests discharge. Observation level ? Psychiatric 1:1 needed??Continue psych 1:1 Work-up:? Pharmacological:? No psychiatric medication recommendations at this time Is patient psychotic? - No; Follow up needed while in the hospital??none Other:? Discussed plan with onsite warehouse team member:?Yes - Nik Peña MD HISTORY This evaluation was conducted remotely with the assistance of onsite staff via HIPAA-compliant video call. Patient consented to proceed with the telehealth visit. Requested by:? Sources of information:?Patient, medical record History of Present Illness:?39-year-old male, undomiciled, single, unemployed, with history of PTSD, depressive disorder, polysubstance abuse, current cocaine/cannabis/amphetamine/opioid use, history of suicide attempt(s), history of psychiatric hospitalization, with no history of violent behavior, self-referred for suicidal ideation. Patient has past high utilization of hospital services. UDS positive for opiates/cocaine/amphetamines/methamphetamine. In the hospital, patient has been in behavioral control with no reported issues. Patient was seen and evaluated. Patient is noted to be guarded, has poor eye contact, states that he has been feeling suicidal since he found his girlfriend a few months ago. He states that she was found with a needle in her arm. Patient states that he uses multiple drugs including anything he can find. Patient states that he has been to multiple ED visits for similar presentation for suicidal ideation. He currently does not endorse any plan or any intent. He does have a history of multiple suicide attempts which she states he does not remember the dates. He states that last time he was admitted to a psych hospital was 10 years ago. Patient is currently homeless. States that he does not have much support. He does not feel hopeful about his future, does not feel that there is anything to look forward to a life. Patient states that he is not sleeping well, he is not eating well. He states that it does not feel motivated, does not have the energy. Patient reports that he is open to going to a psych hospital to get the help that he needs.. Collateral ContactedNo-- patient meets criteria for inpatient hospitalization. PSYCHIATRIC REVIEW OF SYSTEMS (symptoms in past two weeks) Pertinent Positives:?depressed mood/anxiety/see hpi Pertinent Negatives:? PSYCHIATRIC HISTORY Past Psychiatric Diagnoses/Problems:?PTSD, depressive disorder, polysubstance abuse Psychiatric Treatment:?Hospitalizations:?psychiatric hospitalization, reports 10 years ago ???Other Past treatment:?none ???Current treatment:?no reported current psychiatric treatment Drug/Alcohol History ???Current excessive drug/alcohol use:?cocaine, cannabis, amphetamine, opioid ???Past excessive drug/alcohol use:?none ???Drug/alcohol use comment:?Treatment:?none ???Withdrawal symptoms:?none ???UDS results:?UDS positive for opiates/cocaine/amphetamines/methamphetamine ???BAL results:?Active withdrawal Protocol:? Stressors:?intoxication, social isolation, housing instability, chronic substance abuse, family stress, abuse Trauma:?none Family Psychiatric History:?none HEALTH HISTORY Medical Problems:? none Is patient linked with PCP??no Psychiatric and other clinically relevant medications:? Allergies/Adverse Medication Reactions:?NKDA Physical Findings:?no clinically significant changes in vital signs DEMOGRAPHICS/SOCIAL HISTORY Gender:?male Living Situation:?undomiciled Relationship Status:?single Education:?unknown Employment:?unemployed Social Support Network:?none Legal History:?none Special Considerations:?none RISK EVALUATION Suicidality/self-injury:?Yes prior suicide attempt(s) over 6 months ago, aborted suicide attempt(s), suicidal ideation Primary Suicide Screening (PSS-3) 1. In the past two weeks, have you felt down, depressed, or hopeless??YES 2. In the past two weeks, have you had thoughts of killing yourself??YES 3. In your lifetime, have you ever attempted to kill yourself??YES 3a. Within the past 6 months??NO ESS-6 Secondary Screen ( If #2 is yes or #3a is yes within the past 6 months, then complete secondary screen) 1. Positive on PSS-3 questions 2 & 3 ? active suicidal ideation with a past attempt??YES 2. Have you been thinking about how you might kill yourself??NO 3. Have you had some intention of acting on your thoughts??NO 4. Lifetime psychiatric hospitalization??YES 5. Has drinking or substance abuse ever been a problem for you??YES 6. Current irritability, agitation, or aggression??NO PSS-3/ESS-6 Secondary Screen Scoring:?Moderate PSS-3/ESS-6 Scoring Interpretation Legend PSS-3 screen incomplete [Blank PSS-3 questions #2 OR #3a] PSS-3 screen unable to assess [Unable to Assess responses on PSS-3 questions #2 AND #3a] Mild [No current attempt AND No suicide plan or intent AND Score (0-2)] Moderate [No current attempt AND Active suicidal ideation with plan or intent (not both) OR Score (3-4)] Severe [Current attempt OR Suicide plan and intent OR Score (5-6)] HI/Violence/Property Destruction:?no history of violent/aggressive behavior Access to Firearms:?none Grave disability/Poor self-care:?no Psychosis:?No Protective Factors:? High Utilization Criteria:?>=4 ED visits in the past 6 months Signs of Secondary Gain:? MENTAL STATUS EXAM Appearance and Attire:? Normal Psychomotor agitation:? No abnormality Attitude and behavior:? Guarded Speech:? No abnormality Mood:? Depressed Affect:? Constricted Thought Process:? Linear Thought content:? Suicidal ideation Perception:?none Intelligence:? Average Abstraction:? Appropriate Language:? No abnormality Orientation:? Oriented x 4 Sensorium:? Normal Knowledge:? Appropriate for education and socioeconomic status Memory:? Intact Insight:? Lack of awareness of problems Judgment:? Impaired in responses to current situation and behavior, Impaired in self care SUMMARY RISK ASSESSMENT Current Suicide Risk Elevated??PSS-3/ESS-6 Scoring: Moderate? Current Violence Risk Elevated??No Issues with ability to care for self.?No SAFE-T
--- NOTE | 2024-05-16 16:27 | CMPROGNOTE_ITS ---
Date of service: 05/16/24 Time of Service: 16:28 Care Management Progress Note Progress Note Text Progress Note Text: Jose was accepted at [facility] today for inpatient psychiatric care. He stated to his RN that he feels that he would rather go to [facility], a sober living home, and is concerned about being able to get his belongings, which are in [place] CM met with him to discuss this, and encouraged him to follow through with inpatient psychiatric treatment, which he has been feeling would benefit him throughout his stay. CM also stated that [facility] a community placement, that he will not need to remain in the ED in order to make arrangemen ts, therefore he will be discharged on a safety plan, created between he and [facility]. CM provided the phone number for [facility] for him to call and find out where he is on their wait list. CM informed [facility], who also contacted Jose. Jose created a safety plan with [facility] and returned to the community. SDOH(Care Management) Screening Will the Patient Participate in the Screening?: Declined to provide
--- NOTE | 2024-05-16 16:31 | NUR.NOTE ---
Due to patient being safety planned home and being discharged. [facility] for the room and [facility] for the transfer were cancelled. Nursing Note:
--- NOTE | 2024-05-16 17:31 | PDOC.MHPN2 ---
Date of service: 05/15/24 Time of Service: 17:33 Mental Health Emergency Note Release [facility] release signed:: Yes Reason for Visit The client is previously known to [facility] and most recently on 05.10 he came to [facility] seeking voluntary placement for SI. He has been hospitalized before and most recently in October of 2022 received treatment at [facility]. The client agreed to complete intake today. In the last 2 weeks has the pt presented for ES prior to today?: Yes, presented at [facility] ED Client Information Client is: New Well Housed: No,status: Homeless Impression The client is a 39-year-old, , , male who is homeless in [facility]. He is unemployed and does not receive disability at this time. It is unclear how he pays for the substances he endorses using. The client uses He/Him pronouns. The client shared that he was not always like this that he used to be successfully employed and was with kids and a home. 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 All underrepresented identifiers were honored during this assessment. The client reported in an earlier assessment that he has never been suicidal however, stated in others that if he were to be released, he would overdose on drugs or today stated that if he had a knife in front of him, he would use that to slit his wrists. No screening tools were completed as this clinician thought they had been done already. This clinician had a discussion earlier with the [facility] however, it was decided that he was too acute at this time, but a step down may be considered after treatment. Plan/Disposition Recommended Disposition: Hospitalization facilities contacted. Plan: This clinician alerted care management at [facility] and they will assist in trying to find placement. For now, the client will remain at [facility] with daily assessments pending placement. Person reported agreement to plan: Yes Reports/communication Outcome discussed with: ED/Personnel
== END 2024-05-16 16:05 | disposition home or self-care (01) ==
PROVIDERS: Student in an Organized Health Care Education/Training Program; Emergency Provider Emergency Medicine; PCP Family Medicine
DX: R45.851 Suicidal ideations (principal); F33.1 Major depressive disorder, recurrent, moderate; F19.19 Other psychoactive substance abuse with unspecified psychoactive substance-induced disorder; F17.210 Nicotine dependence, cigarettes, uncomplicated; Z59.00 Homelessness unspecified
CPT/HCPCS: 00123; 80053; 80307; 83690; 96372; 96374; 99285; 80320; 80329; 84443; 85025; J1885

== ENCOUNTER 2024-07-18 06:55 | Emergency (ER) | payer MEDICAID, SELFPAY ==
[2024-07-18] VITALS (29 sets, daily range): BP systolic 121–159; BP diastolic 56–134; PULSE 62–103; RESP 11–25; TEMP 36.5–36.6; O2SAT 90–97
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
[2024-07-18] MEDS: fentaNYL 100 MCG/2 ML VIAL 50 MCG NAS (07:20)
[2024-07-18] MEDS: fentaNYL 100 MCG/2 ML VIAL IVP (07:28)
[2024-07-18 07:35] LABS: Abs Immature Grans 0.06 10^3/uL (0.0-0.06); Absolute Basophil Count 0.07 10^3/uL (0.0-0.2); Absolute Eosinophil Count 0.07 10^3/uL (0.0-0.7); Absolute Lymphocyte Count 2.53 10^3/uL (1.2-3.4); Absolute Monocyte Count 0.77 10^3/uL (0.1-0.8); Absolute Neutrophil Count 11.03 10^3/uL (1.2-6.7); Basophils % 0.5 %; Eosinophils % 0.5 %; HCT 40.3 % (40.0-50.0); HGB 13.9 g/dL (13.5-17.5); Immature Grans % 0.4 %; Lymphocytes % 17.4 %; MCH 32.5 pg (27.0-33.0); MCHC 34.5 % (32.0-36.0); MCV 94 fL (80-95); Monocytes % 5.3 %; Neutrophils % 75.9 %; Platelet Count 296 10^3/uL (130-400); RBC 4.28 10^6/uL (4.36-5.78); RDW 12.5 % (11.8-14.1); RDW-SD 43.4 fL; WBC 14.53 10^3/uL (4.4-10.8)
[2024-07-18 07:53] LABS: ALT 197 U/L (16-63); AST 103 U/L (15-37); Albumin 4.1 g/dL (3.4-5.0); Alkaline Phosphatase 98 U/L (46-116); Anion Gap 13.8 mmol/L (3-11); BUN 16 mg/dL (7-18); Bilirubin, Total 0.85 mg/dL (0.2-1.0); CO2 22.2 mmol/L (21.0-32.0); Calcium 9.4 mg/dL (8.5-10.1); Chloride 103 mmol/L (98-107); Estimated GFR 96.97 (mL/min/1.73m2); Glucose 82 mg/dL (74-106); Potassium 4.1 mmol/L (3.5-5.1); Sodium 139 mmol/L (136-145); Total Protein 7.5 g/dL (6.4-8.2)
[2024-07-18] MEDS: fentaNYL 100 MCG/2 ML VIAL 50 MCG IVP (08:04)
[2024-07-18] MEDS: ACETAMINOPHEN 1,000 MG/100 ML BAG 400 MG IVPB (08:48)
== END 2024-07-18 10:17 | disposition short-term general hospital (02) ==
PROVIDERS: Emergency Provider Emergency Medicine; PCP Family Medicine
DX: S02.31XB Fracture of orbital floor, right side, initial encounter for open fracture (principal); T33.522A Superficial frostbite of left hand, initial encounter; T33.521A Superficial frostbite of right hand, initial encounter; F11.90 Opioid use, unspecified, uncomplicated; Y00.XXXA Assault by blunt object, initial encounter; Y93.89 Activity, other specified; Y92.89 Other specified places as the place of occurrence of the external cause; Z59.00 Homelessness unspecified
CPT/HCPCS: 36415; 80053; 96365; 96375; 99285; 70450; 70486; 72125; 83735; 85025; J0131; J3010

== ENCOUNTER 2024-10-04 07:31 | Emergency (ER) | payer MEDICAID, SELFPAY ==
[2024-10-04] VITALS (37 sets, daily range): BP systolic 111–154; BP diastolic 58–86; PULSE 57–81; RESP 10–29; TEMP 36.5–37.2; O2SAT 96–100
--- NOTE | 2024-10-04 07:30 | DI.RAD_ITS ---
Exam(s) XR HAND RT COMPLETE EXAM: XR HAND RT COMPLETE CLINICAL HISTORY: Hx frostbite, abscess, eval osteo. TECHNIQUE: 2D digital imaging was performed of the right hand. Three images were obtained. AP, late ral and oblique views were obtained. COMPARISON: No exams were available for comparison FINDINGS: BONES: No acute fracture is present. No bony destructive lesion is seen. The terminal arvind are intac t. JOINTS: No dislocation present. The joint spaces are well maintained. SOFT TISSUE: Normal. No soft tissue gas is appreciated. IMPRESSION: Unremarkable radiographs of the right hand.No findings to suggest osteomyelitis. DATA REPOSITORY: RADIATION DOSE DELIVERED:
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
--- NOTE | 2024-10-04 08:06 | NUR.NOTE ---
Spoke with Security regarding contraband items discovered upon pt's arrival to ED room. Pt consents to belongings search, performed in room with this real estate underwriter and x ray technologist [place]. Further thorough search through belongings currently underway with security present. Items removed from room with pt consent to secure location. Provider aware. No vomiting/dry heaving noted.
[2024-10-04] MEDS: Ondansetron 4 MG/2 ML VIAL IVP (08:24)
[2024-10-04] MEDS: ACETAMINOPHEN 1,000 MG/100 ML BAG 400 MG IVPB (08:24)
--- NOTE | 2024-10-04 08:32 | NUR.NOTE ---
myself and security went through [place] belongings and removed all of the drug paraphernalia. security has it to properly dispose of it. Nursing Note:
[2024-10-04 08:34] LABS: Lactate 1.8 mmol/L (<or=2.0)
[2024-10-04 08:38] LABS: Abs Immature Grans 0.02 10^3/uL (0.0-0.06); Absolute Basophil Count 0.03 10^3/uL (0.0-0.2); Absolute Eosinophil Count 0.07 10^3/uL (0.0-0.7); Absolute Lymphocyte Count 2.03 10^3/uL (1.2-3.4); Absolute Monocyte Count 0.81 10^3/uL (0.1-0.8); Absolute Neutrophil Count 6.18 10^3/uL (1.2-6.7); Basophils % 0.3 %; Eosinophils % 0.8 %; HCT 44.6 % (40.0-50.0); HGB 14.8 g/dL (13.5-17.5); Immature Grans % 0.2 %; Lymphocytes % 22.2 %; MCH 31.5 pg (27.0-33.0); MCHC 33.2 % (32.0-36.0); MCV 95 fL (80-95); MPV 9.9 fL (8.0-11.0); Monocytes % 8.9 %; Neutrophils % 67.6 %; Platelet Count 282 10^3/uL (130-400); RDW 12.2 % (11.8-14.1); RDW-SD 43.1 fL; WBC 9.14 10^3/uL (4.4-10.8)
[2024-10-04 08:46] LABS: INR 1.1 (0.9-1.1); Prothrombin Time 10.9 sec (9.1-11.1)
[2024-10-04 08:55] LABS: ALT 281 U/L (16-63); AST 137 U/L (15-37); Alkaline Phosphatase 130 U/L (46-116); Anion Gap 10.3 mmol/L (3-11); BUN 4 mg/dL (7-18); Bilirubin, Total 0.6 mg/dL (0.2-1.0); CO2 26.7 mmol/L (21.0-32.0); CREATININE 0.9 mg/dL (0.70-1.30); Calcium 9.3 mg/dL (8.5-10.1); Chloride 100 mmol/L (98-107); Estimated GFR 110.04 (mL/min/1.73m2); Glucose 220 mg/dL (74-106); Lipase 13 U/L (<78); Potassium 3.5 mmol/L (3.5-5.1); Sodium 137 mmol/L (136-145); Total Protein 8.2 g/dL (6.4-8.2)
[2024-10-04] MEDS: Sulfameth/Trimeth DS TAB 1 TAB PO ×2 (11:02→23:26)
[2024-10-04 11:05] LABS: Bilirubin Negative (Negative); Blood Negative (Negative); Clarity Clear (Clear); Glucose 250 mg/dL (Negative); Ketones Negative (Negative); Leukocyte Esterase Negative (Negative); Nitrite Negative (Negative); Urobilinogen 0.2 mg/dL (Up to 0.2); pH 6.5 (5-8)
[2024-10-04] MEDS: Gabapentin 400 MG CAP 800 MG PO ×2 (13:16→18:58)
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
--- NOTE | 2024-10-04 17:03 | CMSP_ITS ---
Date of service: 10/04/24 Time of Service: 17:03 Care Management Safety Plan Status Status: Voluntary Reason for Wait Reason for Wait: Inpatient Admission Safety Plan Safety Plan: VOLUNTARY FOR INPATIENT PSYCHIATRIC STABILIZATION.? Patient is appropriate in all interactions since arriving at [facility]; Pt has demonstrated appropriate coping and communication skills, has articulated his or her needs and concerns and is fully engaged during staff interactions. Safety plan has been established with patient, and care team, to adhere to patient goals, identify restrictions based on behavioral status, address nutrition, and determine allowed personal belongings, tools for hygiene and personal care. Determine level of activity including ambulation, level of superv ision, visitors, and determine privileges based on behaviors and level of engagement by pt. VOLUNTARY SAFETY PLAN: 1. Will remain on suicide precautions, in paper clothes 2. Will remain in Zone B under direct supervision of one-on-one staff at all times provided by [employer]; ATIYA, OCULAR CARE TECHNOLOGIST chip loft worker. 3. May have paper cups, plates, finger foods as well as a cardboard spoon with which to eat meals. 4. Follow [facility] Management of the Admitted Behavioral Health Patient policy. 5. Shower available in Zone B without restriction. 6. Personal belongings-soft items permitted at RN discretion. 7. Visitors-none at this time. 8. Activities: soft cart items, hospital tablets (Netflix/[place]+/music) approved per RN discretion. 9.? Bathroom available in Zone B without restriction. 10. Phone: limited to [facility] cordless phone at RN discretion. Due to VOLUNTARY status, if patient wishes to leave [facility], staff will contact [facility] Crisis Screener ([phone]) and Object Oriented Programmer ([phone]) as soon as possible. In the event of elopement, notify [facility] Police ([phone]). Patient is currently voluntarily at [facility] and seeking inpatient admission when a bed becomes available. [facility] Frontline Department Of Natural Resources Officer will continue seeking placement. Please contact the Object Oriented Programmer ([phone]) and [facility] Department Of Natural Resources Officer ([phone]) for any needed changes in the Safety Plan. Safety plan has been provided to interdepartmental care team.
--- NOTE | 2024-10-04 17:03 | PDOC.CMSAFE ---
Date of service: 10/04/24 Time of Service: 17:03 Care Management Safety Plan Status Status: Voluntary Reason for Wait Reason for Wait: Inpatient Admission Safety Plan Safety Plan: VOLUNTARY FOR INPATIENT PSYCHIATRIC STABILIZATION.? Patient is appropriate in all interactions since arriving at [facility]; Pt has demonstrated appropriate coping and communication skills, has articulated his or her needs and concerns and is fully engaged during staff interactions. Safety plan has been established with patient, and care team, to adhere to patient goals, identify restrictions based on behavioral status, address nutrition, and determine allowed personal belongings, tools for hygiene and personal care. Determine level of activity including ambulation, level of supervision, visitors, and determine privileges based on behaviors and level of engagement by pt. VOLUNTARY SAFETY PLAN: 1. Will remain on suicide precautions, in paper clothes 2. Will remain in Zone B under direct supervision of one-on-one staff at all times provided by [employer]; ATIYA, VICE PRESIDENT RESEARCH motor boss. 3. May have paper cups, plates, finger foods as well as a cardboard spoon with which to eat meals. 4. Follow [facility] Management of the Admitted Behavioral Health Patient policy. 5. Shower available in Zone B without restriction. 6. Personal belongings-soft items permitted at RN discretion. 7. Visitors-none at this time. 8. Activities: soft cart items, hospital tablets (Netflix/[place]+/music) approved per RN discretion. 9.? Bathroom available in Zone B without restriction. 10. Phone: limited to [facility] cordless phone at RN discretion. Due to VOLUNTARY status, if patient wishes to leave [facility], staff will contact [facility] Crisis Screener ([phone]) and Squad Boss ([phone]) as soon as possible. In the event of elopement, notify [facility] Police ([phone]). Patient is currently voluntarily at [facility] and seeking inpatient admission when a bed becomes available. [facility] Frontline Office Engineer will continue seeking placement. Please contact the Squad Boss ([phone]) and [facility] Office Engineer ([phone]) for any needed changes in the Safety Plan. Safety plan has been provided to interdepartmental care team.
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
[2024-10-04] MEDS: cloNIDine 0.1 MG PATCH TD (19:19)
[2024-10-04] MEDS: cloNIDine 0.1 MG TAB PO (23:26)
[2024-10-04] MEDS: LORazepam 1 MG TAB 2 MG PO (23:26)
[2024-10-04] MEDS: Ondansetron O.D.T. 4 MG TABEF PO (23:26)
--- NOTE | 2024-10-04 23:31 | NUR.NOTE ---
2300 PT vomited and is anxious. ED MD notified Nursing Note:
--- NOTE | 2024-10-04 23:51 | ED.PROG_ITS ---
Date of service: 10/04/24 Time of Service: 23:51 Medical Decision Making Patient was signed out to me pending placement. Patient began to demonstrate some signs of withdrawal towards the end of the previous shift, and throughout my shift. Clonidine patch was applied and initially did help some of his symptoms, however as the night wore on he continued to worsen. An additional dose of 0.1 mg of clonidine orally was given, as well as 2 mg of oral Ativan and Zofran for nausea. Patient tolerated this well. He will be signed out for continued monitoring until placement. Quality:SDOH Health Related Social Needs: Health related social needs inadequate housing (Z59.1) , food insecurity (Z59.41), transportation insecurity (Z59.82), material hardship(utilities) (Z59.12), problems related to housing/economic circumstances (Z59.89), problems with daily activities (Z73.9), feeling lonely/isolated (Z60.8), education (Z55.6) Health related social needs details homeless Discharge Plan Discharge Details Chief Complaint: Cellulitis Clinical Impression: Suicidal ideation, Elevated transaminase level, Unsheltered homelessness, Opioid use with withdrawal, Abscess of hand, right Primary Care Provider: Joel Martinez ED Provider: Jarrod Vaughn Home Meds and New Rx's Prescriptions: No Action gabapentin 400 mg capsule 800 mg PO TID Rx Instructions: 3x daily for 14 days
--- NOTE | 2024-10-04 23:56 | ED.PROG_ITS ---
Date of service: 10/04/24 Time of Service: 23:56 Medical Decision Making This patient was signed out to me. Please see previous notes for H&P and initial eval. In brief, 39yo M being treated for skin abscesses and opiate withdrawal, medically cleared, pending voluntary placement for SI. Overnight no acute events. Will be signed out to oncoming physician, plan remains as above. Quality:SDOH Health Related Social Needs: Health related social needs inadequate housing (Z59.1) , food insecurity (Z59.41), transportation insecurity (Z59.82), material hardship(utilities) (Z59.12), problems related to housing/economic circumstances (Z59.89), problems with daily activities (Z73.9), feeling lonely/isolated (Z60.8), education (Z55.6) Health related social needs details homeless Discharge Plan Discharge Details Chief Complaint: Cellulitis Clinical Impression: Suicidal ideation, Elevated transaminase level, Unsheltered homelessness, Opioid use with withdrawal, Abscess of hand, right Primary Care Provider: Joel Martinez ED Provider: Phyllis Chapin Home Meds and New Rx's Prescriptions: No Action gabapentin 400 mg capsule 800 mg PO TID Rx Instructions: 3x daily for 14 days
[2024-10-05 03:12] VITALS: BP 134/85; PULSE 74; RESP 18; O2SAT 97
--- NOTE | 2024-10-05 07:33 | ED.PROG_ITS ---
Date of service: 10/05/24 Time of Service: 08:00 Medical Decision Making This is a 39-year-old male patient with a past medical history significant for polysubstance use disorder, boarding in our emergency department with opioid withdrawal and suicidal ideation. Prior to my taking over his care this morning the patient was medically cleared, has been resting and calm and cooperative. He continues to have opioid withdrawal symptoms with bodyaches, goosebumps, yawning, and nausea. The patient did receive 1 dose of clonidine last night given a concern that his most recent fentanyl use was too recent for initiation of Suboxone given the risk of precipitated withdrawal. I had a discussion with the patient this morning, and he is interested in reinitiating his Suboxone medical maintenance therapy, and as it has been approximately 24 to 36 hours since his last use I feel that this is a reasonable approach given his ongoing withdrawal. 8 mg of Suboxone was given with a plan to repeat COWS score and re dose as needed. He also has a order for a as needed clonidine as needed for severe withdrawal symptoms. -COWS score 3 after initial dose, did not require additional medications for management of opioid withdrawal syndrome. Will write for daily 8 mg of Suboxone while here in the emergency department. The patient remains voluntary and is awaiting placement. Signed out to oncoming provider prior to final disposition. Remained hemodynamically appropriate throughout his time under my care. Sulma Henson MD Medical Records Medical records reviewed: Yes I reviewed the patient's medical records. Lab Data Lab results reviewed: Yes I reviewed the patient's lab results. Quality:SDOH Health Related Social Needs: Health related social needs inadequate housing (Z59.1) , transportation insecurity (Z59.82), material hardship(utilities) (Z59.12), problem related to primary support group (Z63.9), problems related to housing/economic circumstances (Z59.89), problems with daily activities (Z73.9), feeling lonely/isolated (Z60.8), education (Z55.6) Health related social needs details homeless Discharge Plan Discharge Details Chief Complaint: Cellulitis Clinical Impression: Suicidal ideation, Elevated transaminase level, Unsheltered homelessness, Opioid use with withdrawal, Abscess of hand, right Primary Care Provider: Joel Martinez ED Provider: Sulma Henson Home Meds and New Rx's Prescriptions: No Action gabapentin 400 mg capsule 800 mg PO TID Rx Instructions: 3x daily for 14 days
[2024-10-05] MEDS: Sulfameth/Trimeth DS TAB 1 TAB PO ×2 (08:52→21:36)
[2024-10-05] MEDS: Buprenorphine/Naloxone 8 mg/2 mg FILM 1 EACH SL (08:52)
[2024-10-05] MEDS: Ondansetron O.D.T. 4 MG TABEF PO (08:52)
[2024-10-05] MEDS: Gabapentin 400 MG CAP 800 MG PO ×3 (08:52→21:36)
[2024-10-05 09:03] VITALS: BP 133/82; PULSE 50; TEMP 37.2; O2SAT 91
--- NOTE | 2024-10-05 12:24 | CMSP_ITS ---
Date of service: 10/05/24 Time of Service: 12:25 Care Management Safety Plan Status Status: Voluntary Reason for Wait Reason for Wait: Inpatient Admission Safety Plan Safety Plan: VOLUNTARY FOR INPATIENT PSYCHIATRIC STABILIZATION.? Patient is appropriate in all interactions since arriving at [facility]; Pt has demonstrated appropriate coping and communication skills, has articulated his or her needs and concerns and is fully engaged during staff interactions. Safety plan has been established with patient, and care team, to adhere to patient goals, identify restrictions based on behavioral status, address nutrition, and determine allowed personal belongings, tools for hygiene and personal care. Determine level of activity including ambulation, level of superv ision, visitors, and determine privileges based on behaviors and level of engagement by pt. VOLUNTARY SAFETY PLAN: 1. Will remain on suicide precautions, in paper clothes 2. Will remain in Zone B under direct supervision of one-on-one staff at all times provided by [employer]; ATIYA, HVAC MECHANICAL ENGINEER seismograph supervisor. 3. May have paper cups, plates, finger foods as well as a cardboard spoon with which to eat meals. 4. Follow [facility] Management of the Admitted Behavioral Health Patient policy. 5. Shower available in Zone B without restriction. 6. Personal belongings-soft items permitted at RN discretion. 7. Visitors-none at this time. 8. Activities: soft cart items, hospital tablets (Netflix/[place]+/music) approved per RN discretion. 9.? Bathroom available in Zone B without restriction. 10. Phone: limited to [facility] cordless phone at RN discretion. Due to VOLUNTARY status, if patient wishes to leave [facility], staff will contact [facility] Crisis Screener ([phone]) and Director Housekeeping ([phone]) as soon as possible. In the event of elopement, notify [facility] Police ([phone]). Patient is currently voluntarily at [facility] and seeking inpatient admission when a bed becomes available. [facility] Frontline Orthopedic Coder will continue seeking placement. Please contact the Director Housekeeping ([phone]) and [facility] Orthopedic Coder ([phone]) for any needed changes in the Safety Plan. Safety plan has been provided to interdepartmental care team.
--- NOTE | 2024-10-05 12:24 | PDOC.CMSAFE ---
Date of service: 10/05/24 Time of Service: 12:25 Care Management Safety Plan Status Status: Voluntary Reason for Wait Reason for Wait: Inpatient Admission Safety Plan Safety Plan: VOLUNTARY FOR INPATIENT PSYCHIATRIC STABILIZATION.? Patient is appropriate in all interactions since arriving at [facility]; Pt has demonstrated appropriate coping and communication skills, has articulated his or her needs and concerns and is fully engaged during staff interactions. Safety plan has been established with patient, and care team, to adhere to patient goals, identify restrictions based on behavioral status, address nutrition, and determine allowed personal belongings, tools for hygiene and personal care. Determine level of activity including ambulation, level of supervision, visitors, and determine privileges based on behaviors and level of engagement by pt. VOLUNTARY SAFETY PLAN: 1. Will remain on suicide precautions, in paper clothes 2. Will remain in Zone B under direct supervision of one-on-one staff at all times provided by [employer]; ATIYA, CUTTER APPRENTICE HAND grid operator. 3. May have paper cups, plates, finger foods as well as a cardboard spoon with which to eat meals. 4. Follow [facility] Management of the Admitted Behavioral Health Patient policy. 5. Shower available in Zone B without restriction. 6. Personal belongings-soft items permitted at RN discretion. 7. Visitors-none at this time. 8. Activities: soft cart items, hospital tablets (Netflix/Jo+/music) approved per RN discretion. 9.? Bathroom available in Zone B without restriction. 10. Phone: limited to [facility] cordless phone at RN discretion. Due to VOLUNTARY status, if patient wishes to leave [facility], staff will contact [facility] Crisis Screener ([phone]) and Pack Mule Worker ([phone]) as soon as possible. In the event of elopement, notify [facility] Police ([phone]). Patient is currently voluntarily at [facility] and seeking inpatient admission when a bed becomes available. [facility] Frontline Vacuum Cleaner Assembler will continue seeking placement. Please contact the Pack Mule Worker ([phone]) and [facility] Vacuum Cleaner Assembler ([phone]) for any needed changes in the Safety Plan. Safety plan has been provided to interdepartmental care team.
--- NOTE | 2024-10-05 12:25 | CMPROGNOTE_ITS ---
Date of service: 10/05/24 Time of Service: 12:25 Care Management Progress Note Progress Note Text Progress Note Text: CM huddled with [facility] and ED staff regarding Jose's plan of care. Per RN, he has been appropriate and cooperative today, and he appears to be fee ling better. Sandy [place] has asked for additional documentation, which was sent. Per MD, his suboxone treatment was re initiated today. Per report, Jose was recently diagnosed with diabetes, but is not currently prescribed any medication to treat it. This will likely be treated outpatient. He is currently on oral antibiotics; he can complete the course of medication at a facility, if he is transferred. Per [facility], Jose denied suicidal ideation today. He is still seeking treatment for co-occurring mental health and substance use treatment. He was declined by [facility]. Jose is voluntary, seeking inpatient psychiatric treatment. Referrals are being reviewed; safety plan in place. CM will continue to follow. Social Determinants of Health Screening Social Determinants of health last assessed in clinic: 10/05/24 Will the Patient Participate in the Screening?: Yes Do you worry about having a steady place to live?: no Problems where you live: other In the past 12 months, have you had to go without electric, gas, oil or water in your home?: choose not to answer 1. Within the past 12 months, we worried whether our food would run out before we got money to buy more.: Often true 2. Within the past 12 months, the food we bought just didn't last and we didn't have money to get more.: Often true Has lack of transportation kept you from medical appointments or from doing things needed for daily living?: yes Has anyone in your life made you feel unsafe or unsupported?: yes How often does anyone, including family and friends, physically hurt you?: Fairly Often How often does anyone, including family and friends, insult or talk down to you?: Fairly Often How often does anyone, including family and friends, threaten you with harm?: Fairly Often How often does anyone, including family and friends, scream or curse at you?: Fairly Often [facility] Safety total score: 16 How hard is it for you to pay for the very basics like food, housing, medical care, and heating? Would you say it is:: Very hard Do you want help finding or keeping work or a job?: I do not need or want help If for any reason you need help with day-to-day activities such as bathing, preparing meals, shopping, managing finances, etc., do you get the help you need?: I need a lot more help How often do you feel lonely or isolated from those around you?: Often Do you speak a language other than Cymro at home?: Yes Does the patient want assistance with any of the above?: No Comments: pt homeless Health Related Social Needs Health related social needs: inadequate housing (Z59.1), food insecurity (Z59.41), transportation insecurity (Z59.82), material hardship(utilities) (Z59.12), problem related to primary support group (Z63.9), problems related to housing/economic circumstances (Z59.89), problems with daily activities (Z73.9), feeling lonely/isolated (Z60.8) and education (Z55.6)
[2024-10-05 12:44] LABS: *AMPHETAMINES SCREEN URINE Negative (Negative); *BARBITURATES SCREEN URINE Negative (Negative); *BENZODIAZEPINES SCREEN URINE Negative (Negative); Cannabinoids THC Negative (Negative); Cocaine Screen,Urine Negative (Negative); METHADONE URINE SCREEN Negative (Negative); OPIATES URINE SCREEN Negative (Negative)
[2024-10-05 12:45] LABS: Tricyclic Antidepressants Negative (Negative)
[2024-10-05] MEDS: Nicotine 7 MG/24 HR PATCH TD (14:04)
--- NOTE | 2024-10-05 14:24 | PDOC.MHPN2 ---
Date of service: 10/05/24 Time of Service: 11:00 PHQ-9 Over the last 2 weeks, how often have you been bothered by any of the following problems? 1. Little interest or pleasure in doing things: several days 2. Feeling down, depressed, or hopeless: several days 3. Trouble falling or staying asleep, or sleeping too much: several days 4. Feeling tired or having little energy: several days 5. Poor appetite or overeating: several days 6. Feeling bad about yourself - or that you are a failure or have let yourself and your family down: more than half the days 7. Trouble concentrating on things, such as reading the newspaper or watching television: not at all 8. Moving or speaking so slowly that other people could have noticed? - Or the opposite - being so fidgety or restless that you have been moving around a lot more than usual: not at all 9. Thoughts that you would be better off or of hurting yourself in some way: several days Total score: 8 Source: Developed by Drs. Arnulfo Bunn, Graciela Yang, Kevyn Terrell and colleagues, with an educational ines from [employer]. Suicide Severity Rate CSSRS Have you wished you were or wished you could go to sleep and not wake up?: No Have you actually had any thoughts of killing yourself?: Yes CSSRS2 Have you been thinking about how you might do this?: Yes Have you had these thoughts and had some intention of acting on them?: No Have you started to work out or worked out the details of how to kill yourself? Do you intend to carry out this plan?: No CSSRS3 Have you ever done anything, started to do anything or prepared to do anything to end your life?: Yes Screening Score Total Score: 4 Screening: Positive Mental Health Emergency Note Release [facility] release signed:: Yes Reason for Visit This client has been living on [address] recently and suffering from a long drug addiction which limits his possibilities of improving his life. He is suffering from drug withdrawals, open wounds from drug use, mason, and pancreatitis with high sugar readings. In the last 2 weeks has the pt presented for ES prior to today?: No Client Information Client is: Adult Outpatient Well Housed: No,status: Homeless Stable housing Non Suicidal Self Injury Current: No History: No Safety Risk/Harm to Self or Others Current Ideation to Harm Self or Others: No Risk: Does risk to harm exist?: yes. Access to means: Yes. Details: client stated, I could kill myself with anything even here in the hospital if i wanted to but i do not . Counseling provided: Yes Asssessment/Mental Status Behavior: Unremarkable Speech: Normal Affect: Cogruent with mood Mood: Sad, Depressed and Anxious Thought process: Goal directed and Circumstational Hallucinations: No Delusions: No Attention: Unremarkable Perception: Not impaired Orientation: Fully orientated Memory: Intact Insight: Poor Judgement: Poor Neurovegetative Symptoms Sleep: Increase Appetitie: Increase Interests: No change Energy: No change Libido: Not applicable Substance Use: Other (no longer drinks alcohol) Drug Issues: Dependence Do you use nicotine?: Yes Have you used substances in the last 7 days?: yes, intravenously heroine/fentanyl Additional Issues: Assaultive/Threatening Behavior: No Medical Concerns: Yes Client engaged in active self harm w/weapon: No Threatening to run away: No Child reported abuse/neglect: No Voluntarily presenting for services: Yes Domestic violence is a concern: No Extreme Psychosis or extreme behavior is present: No Impression Client is a very physically sick man due to not taking care of himself and a strong addiction to drugs and the damage it as done to his body. He suffers from PTSD from trauma as a child and as an adult. Unfortunatley he rarely follows through with mental inpatient and drug rehabilitation programs. Resources Reosurces reviewed and given:: [facility] [place] and [facility] Plan/Disposition Recommended Disposition: Hospitalization facilities contacted, Therapy, Med management and Community resources. Plan: This client will stay on Zone B and get well as he awaits an inpatient bed to become available, hopefully as soon as possible. Person reported agreement to plan: Yes Facilities contacted if Applicable [facility] Not accepted, (reviewing and waitng for a urine test) Other [facility] Not accepted, Other [facility], Other Reports/communication Outcome discussed with: ED/Personnel
--- NOTE | 2024-10-06 06:57 | W.EDPROG ---
Date of service: 10/06/24 Time of Service: 06:57 Medical Decision Making Patient remains in the ED pending voluntary placement for depression. He is no longer suicidal. He seems to be doing well with the ordered Suboxone. Continues on antibiotic for cellulitis. No issues on the overnight shift. Quality:SDOH Health Related Social Needs: Health related social needs inadequate housing (Z59.1), food insecurity (Z59.41), transportation insecurity (Z59.82), material hardship(utilities) (Z59.12), problem related to primary support group (Z63.9), problems related to housing/economic circumstances (Z59.89), problems with daily activities (Z73.9), feeling lonely/isolated (Z60.8), education (Z55.6) Health related social needs details homeless Discharge Plan Discharge Details Chief Complaint: Cellulitis Clinical Impression: Suicidal ideation, Elevated transaminase level, Unsheltered homelessness, Opioid use with withdrawal, Abscess of hand, right Primary Care Provider: Joel Martinez ED Provider: Arnulfo Junior [place] Rhonda and New Rx's Prescriptions: No Action gabapentin 400 mg capsule 800 mg PO TID Rx Instructions: 3x daily for 14 days
[2024-10-06] MEDS: Gabapentin 400 MG CAP 800 MG PO ×3 (08:02→20:05)
[2024-10-06] MEDS: Sulfameth/Trimeth DS TAB 1 TAB PO ×2 (08:02→20:05)
[2024-10-06] MEDS: Nicotine 7 MG/24 HR PATCH TD (08:02)
[2024-10-06] MEDS: Buprenorphine/Naloxone 8 mg/2 mg FILM 1 EACH SL (08:02)
[2024-10-06 08:15] VITALS: BP 99/62; PULSE 89; RESP 16; TEMP 36.5; O2SAT 100
--- NOTE | 2024-10-06 09:58 | CMSP_ITS ---
Date of service: 10/06/24 Time of Service: 09:58 Care Management Safety Plan Status Status: Voluntary Reason for Wait Reason for Wait: Inpatient Admission Safety Plan Safety Plan: VOLUNTARY FOR INPATIENT PSYCHIATRIC STABILIZATION.? Patient is appropriate in all interactions since arriving at [facility]; Pt has demonstrated appropriate coping and communication skills, has articulated his or her needs and concerns and is fully engaged during staff interactions. Safety plan has been established with patient, and care team, to adhere to patient goals, identify restrictions based on behavioral status, address nutrition, and determine allowed personal belongings, tools for hygiene and personal care. Determine level of activity including ambulation, level of supervision, visitors, and determine privileges based on behaviors and level of engagement by pt. VOLUNTARY SAFETY PLAN: 1. Will remain on suicide precautions, in paper clothes 2. Will remain in Zone B under direct supervision of one-on-one staff at all times provided by [employer]; ATIYA, AREA SALES MANAGER director home. 3. May have paper cups, plates, finger foods as well as a cardboard spoon with which to eat meals. 4. Follow [facility] Management of the Admitted Behavioral Health Patient policy. 5. Shower available in Zone B without restriction. 6. Personal belongings-soft items permitted at RN discretion. 7. Visitors-none at this time. 8. Activities: soft cart items, hospital tablets (Netflix/Jo+/music) approved per RN discretion. 9.? Bathroom available in Zone B without restriction. 10. Phone: limited to [facility] cordless phone at RN discretion. Due to VOLUNTARY status, if patient wishes to leave [facility], staff will contact [facility] Crisis Screener ([phone]) and Marketing Systems Analyst ([phone]) as soon as possible. In the event of elopement, notify [facility] Police ([phone]). Patient is currently voluntarily at [facility] and seeking inpatient admission when a bed becomes available. [facility] Frontline It Support Manager will continue seeking placement. Please contact the Marketing Systems Analyst ([phone]) and [facility] It Support Manager ([phone]) for any needed changes in the Safety Plan. Safety plan has been provided to interdepartmental care team.
--- NOTE | 2024-10-06 13:14 | PDOC.MHPN2 ---
Date of service: 10/06/24 Time of Service: 11:00 PHQ-9 Over the last 2 weeks, how often have you been bothered by any of the following problems? 1. Little interest or pleasure in doing things: several days 2. Feeling down, depressed, or hopeless: not at all 3. Trouble falling or staying asleep, or sleeping too much: several days 4. Feeling tired or having little energy: not at all 5. Poor appetite or overeating: not at all 6. Feeling bad about yourself - or that you are a failure or have let yourself and your family down: several days 7. Trouble concentrating on things, such as reading the newspaper or watching television: not at all 8. Moving or speaking so slowly that other people could have noticed? - Or the opposite - being so fidgety or restless that you have been moving around a lot more than usual: not at all 9. Thoughts that you would be better off or of hurting yourself in some way: not at all Total score: 3 Source: Developed by Drs. Arnulfo Bunn, Graciela Yang, Kevyn Terrell and colleagues, with an educational ines from [employer] Suicide Severity Rate CSSRS Have you wished you were or wished you could go to sleep and not wake up?: No Have you actually had any thoughts of killing yourself?: Yes CSSRS2 Have you been thinking about how you might do this?: Yes Have you had these thoughts and had some intention of acting on them?: Yes Have you started to work out or worked out the details of how to kill yourself? Do you intend to carry out this plan?: No CSSRS3 Have you ever done anything, started to do anything or prepared to do anything to end your life?: Yes CSSRS4 Was this within the past three months?: No Screening Score Total Score: 4 Screening: Positive Mental Health Emergency Note Release [facility] release signed:: Yes Reason for Visit homelessness, suicidal ideation, medical concerns In the last 2 weeks has the pt presented for ES prior to today?: No Client Information Client is: Adult Outpatient Well Housed: No,status: Homeless Stable housing Non Suicidal Self Injury Current: No History: No Safety Risk/Harm to Self or Others Current Ideation to Harm Self or Others: No Risk: Does risk to harm exist?: yes. Access to means: No. Risk: Moderate Risk Duty to warn indicated: No Asssessment/Mental Status Appearance: Other (paper scrubs) Attitude: Cooperative and Friendly Behavior: Unremarkable Speech: Normal Affect: Cogruent with mood Mood: Expansive and Anxious Thought process: Flight of ideas and Circumstational Hallucinations: No Delusions: No Attention: Unremarkable Perception: Not impaired Orientation: Fully orientated Memory: Intact Insight: Poor Judgement: Poor Neurovegetative Symptoms Sleep: Decrease Appetitie: Increase Interests: No change Energy: Increase Libido: Not applicable Substance Use: Other (no longer drinks) Drug Issues: Dependence (but now on suboxone) Do you use nicotine?: Yes Have you used substances in the last 7 days?: yes, unsure Additional Issues: Assaultive/Threatening Behavior: No Medical Concerns: Yes Client engaged in active self harm w/weapon: No Threatening to run away: No Child reported abuse/neglect: No Voluntarily presenting for services: Yes Domestic violence is a concern: No Extreme Psychosis or extreme behavior is present: No Impression This client is waiting to go inpatient to treat his mental illness and hopefully on to drug rehab to combat his drug addiction Resources Reosurces reviewed and given:: 988 and [facility] Plan/Disposition Recommended Disposition: Hospitalization facilities contacted. Plan: Client will await on zone B for an inpatient bed to become available Person reported agreement to plan: Yes Facilities contacted if Applicable [facility] Not accepted, [facility] Not accepted, Other [facility] Not accepted, No bed available, [facility] Not accepted, No bed available Reports/communication Outcome discussed with: ED/Personnel
--- NOTE | 2024-10-06 15:57 | W.EDPROG ---
Date of service: 10/06/24 Time of Service: 15:57 Medical Decision Making Care was signed out by Dr. Junior, please see his documentation regarding prior ED course. Patient had been medically screened and cleared prior to signout. Awaiting voluntary psychiatric placement for depression. Patient reassessed. He is medically stable. He is doing well on suboxone. Patient seen again by crisis screener who continues to advocate for inpatient treatment. Patient agreeable with this plan. Patient remains medically clear for transfer to psychiatric inpatient treatment facility. Quality:[facility] Health Related Social Needs: Health related social needs inadequate housing (Z59.1), food insecurity (Z59.41), transportation insecurity (Z59.82), material hardship(utilities) (Z59.12), problem related to primary support group (Z63.9), problems related to housing/economic circumstances (Z59.89), problems with daily activities (Z73.9), feeling lonely/isolated (Z60.8), education (Z55.6) Health related social needs details homeless Discharge Plan Discharge Details Chief Complaint: Cellulitis Clinical Impression: Suicidal ideation, Elevated transaminase level, Unsheltered homelessness, Opioid use with withdrawal, Abscess of hand, right Primary Care Provider: Joel Martinez ED Provider: Luis Hill Meds and New Rx's Prescriptions: No Action gabapentin 400 mg capsule 800 mg PO TID Rx Instructions: 3x daily for 14 days
--- NOTE | 2024-10-06 16:14 | PDOC.CMPRO ---
Date of service: 10/06/24 Time of Service: 16:14 Care Management Progress Note Progress Note Text Progress Note Text: CM met earlier in the day with Zone B RN, forestry supervisor, and [facility] staff. Jose has been doing well. Sandy Antler is still reviewing the referral. It was the understanding that the referral is being held up due to medical reasons. CM was contacted by ER to check in with Sandy. stated that Jose IS medically cleared and there are no medical issues. [place] B RN will send updated notes this afternoon. Jose is voluntary, seeking inpatient psychiatric treatment. Safety plan in place. CM will continue to follow. MH Services (Omit if N/A) Current MH Services: [facility] Status Status: Voluntary Reason for Wait: Inpatient Admission Social Determinants of Health Screening Social Determinants of health last assessed in clinic: 10/06/24 Will the Patient Participate in the Screening?: Yes Do you worry about having a steady place to live?: no Problems where you live: other In the past 12 months, have you had to go without electric, gas, oil or water in your home?: choose not to answer 1. Within the past 12 months, we worried whether our food would run out before we got money to buy more.: Often true 2. Within the past 12 months, the food we bought just didn't last and we didn't have money to get more.: Often true Has lack of transportation kept you from medical appointments or from doing things needed for daily living?: yes Has anyone in your life made you feel unsafe or unsupported?: yes How often does anyone, including family and friends, physically hurt you?: Fairly Often How often does anyone, including family and friends, insult or talk down to you?: Fairly Often How often does anyone, including family and friends, threaten you with harm?: Fairly Often How often does anyone, including family and friends, scream or curse at you?: Fairly Often [facility] Safety total score: 16 How hard is it for you to pay for the very basics like food, housing, medical care, and heating? Would you say it is:: Very hard Do you want help finding or keeping work or a job?: I do not need or want help If for any reason you need help with day-to-day activities such as bathing, preparing meals, shopping, managing finances, etc., do you get the help you need?: I need a lot more help How often do you feel lonely or isolated from those around you?: Often Do you speak a language other than Lithuanian at home?: Yes Does the patient want assistance with any of the above?: No Comments: pt homeless Health Related Social Needs Health related social needs: inadequate housing (Z59.1), food insecurity (Z59.41), transportation insecurity (Z59.82), material hardship(utilities) (Z59.12), problem related to primary support group (Z63.9), problems related to housing/economic circumstances (Z59.89), problems with daily activities (Z73.9), feeling lonely/isolated (Z60.8) and education (Z55.6)
[2024-10-06] MEDS: cloNIDine 0.1 MG TAB PO (20:05)
--- NOTE | 2024-10-07 06:37 | W.EDPROG ---
Date of service: 10/07/24 Time of Service: 06:37 Medical Decision Making Patient remains in ED pending voluntary psychiatric admission for depression and suicidal ideation. He is being maintained on Suboxone at this time. He is also continuing antibiotics. No issues on the overnight shift. Quality:[facility] Health Related Social Needs: Health related social needs inadequate housing (Z59.1), food insecurity (Z59.41), transportation insecurity (Z59.82), material hardship(utilities) (Z59.12), problem related to primary support group (Z63.9), problems related to housing/economic circumstances (Z59.89), problems with daily activities (Z73.9), feeling lonely/isolated (Z60.8), education (Z55.6) Health related social needs details homeless Discharge Plan Discharge Details Chief Complaint: Cellulitis Clinical Impression: Suicidal ideation, Elevated transaminase level, Unsheltered homelessness, Opioid use with withdrawal, Abscess of hand, right Primary Care Provider: Joel Martinez ED Provider: Arnulfo Junior [place] Rhonda and New Rx's Prescriptions: No Action gabapentin 400 mg capsule 800 mg PO TID Rx Instructions: 3x daily for 14 days
[2024-10-07] MEDS: Nicotine 7 MG/24 HR PATCH TD (08:22)
[2024-10-07] MEDS: Sulfameth/Trimeth DS TAB 1 TAB PO ×2 (08:22→20:15)
[2024-10-07] MEDS: Gabapentin 400 MG CAP 800 MG PO ×3 (08:22→20:15)
[2024-10-07] MEDS: Buprenorphine/Naloxone 8 mg/2 mg FILM 1 EACH SL (08:23)
[2024-10-07 08:25] VITALS: BP 101/64; PULSE 87; RESP 21; TEMP 36.6; O2SAT 100
--- NOTE | 2024-10-07 09:37 | CMSP_ITS ---
Date of service: 10/07/24 Time of Service: 09:37 Care Management Safety Plan Status Status: Voluntary Reason for Wait Reason for Wait: Inpatient Admission Safety Plan Safety Plan: VOLUNTARY FOR INPATIENT PSYCHIATRIC STABILIZATION.? Patient is appropriate in all interactions since arriving at [facility]; Pt has demonstrated appropriate coping and communication skills, has articulated his or her needs and concerns and is fully engaged during staff interactions. Safety plan has been established with patient, and care team, to adhere to patient goals, identify restrictions based on behavioral status, address nutrition, and determine allowed personal belongings, tools for hygiene and personal care. Determine level of activity including ambulation, level of superv ision, visitors, and determine privileges based on behaviors and level of engagement by pt. VOLUNTARY SAFETY PLAN: 1. Will remain on suicide precautions, in paper clothes. Jose may wear and keep his reading glasses. 2. Will remain in Zone B under direct supervision of one-on-one staff at all times provided by [employer]; TOWER AIR TRAFFIC CONTROL SPECIALIST, EYEGLASS CUTTER rotary drill operator. 3. May have paper cups, plates, finger foods as well as a cardboard spoon with which to eat meals. 4. Follow [facility] Management of the Admitted Behavioral Health Patient policy. 5. Shower available in Zone B without restriction. 6. Personal belongings-soft items permitted at RN discretion. 7. Visitors-none at this time. 8. Activities: soft cart items, hospital tablets (Netflix/Jo+/music) approved per RN discretion. 9.? Bathroom available in Zone B without restriction. 10. Phone: limited to [facility] cordless phone at RN discretion. Due to VOLUNTARY status, if patient wishes to leave [facility], staff will contact [facility] Crisis Screener ([phone]) and [facility] ([phone]) as soon as possible. In the event of elopement, notify [place] [employer] ([phone]). Patient is currently voluntarily at [facility] and seeking inpatient admission when a bed becomes available. [facility] Frontline Sap Bobj Developer will continue seeking placement. Please contact the [facility] ([phone]) and [facility] Sap Bobj Developer ([phone]) for any needed changes in the Safety Plan. Safety plan has been provided to interdepartmental care team.
--- NOTE | 2024-10-07 09:37 | PDOC.CMSAFE ---
Date of service: 10/07/24 Time of Service: 09:37 Care Management Safety Plan Status Status: Voluntary Reason for Wait Reason for Wait: Inpatient Admission Safety Plan Safety Plan: VOLUNTARY FOR INPATIENT PSYCHIATRIC STABILIZATION.? Patient is appropriate in all interactions since arriving at [facility]; Pt has demonstrated appropriate coping and communication skills, has articulated his or her needs and concerns and is fully engaged during staff interactions. Safety plan has been established with patient, and care team, to adhere to patient goals, identify restrictions based on behavioral status, address nutrition, and determine allowed personal belongings, tools for hygiene and personal care. Determine level of activity including ambulation, level of supervision, visitors, and determine privileges based on behaviors and level of engagement by pt. VOLUNTARY SAFETY PLAN: 1. Will remain on suicide precautions, in paper clothes. Jose may wear and keep his reading glasses. 2. Will remain in Zone B under direct supervision of one-on-one staff at all times provided by [employer]; ATIYA, POWER PLANT SUPERINTENDENT nuisance wildlife control operator. 3. May have paper cups, plates, finger foods as well as a cardboard spoon with which to eat meals. 4. Follow [facility] Management of the Admitted Behavioral Health Patient policy. 5. Shower available in Zone B without restriction. 6. Personal belongings-soft items permitted at RN discretion. 7. Visitors-none at this time. 8. Activities: soft cart items, hospital tablets (Netflix/Chelsea+/music) approved per RN discretion. 9.? Bathroom available in Zone B without restriction. 10. Phone: limited to [facility] cordless phone at RN discretion. Due to VOLUNTARY status, if patient wishes to leave [facility], staff will contact [facility] Crisis Screener ([phone]) and Transit Specialist ([phone]) as soon as possible. In the event of elopement, notify [place] [employer] ([phone]). Patient is currently voluntarily at [facility] and seeking inpatient admission when a bed becomes available. [facility] Frontline Senior Market Intelligence Consultant will continue seeking placement. Please contact the Transit Specialist ([phone]) and [facility] Senior Market Intelligence Consultant ([phone]) for any needed changes in the Safety Plan. Safety plan has been provided to interdepartmental care team.
--- NOTE | 2024-10-07 14:55 | ED.PROG_ITS ---
Date of service: 10/07/24 Time of Service: 14:55 Medical Decision Making Patient stable throughout the shift. No interventions needed. Patient still pending voluntary placement. Quality:SDOH Health Related Social Needs: Health related social needs inadequate housing (Z59.1) , food insecurity (Z59.41), transportation insecurity (Z59.82), material hardship(utilities) (Z59.12), problem related to primary support group (Z63.9), problems related to housing/economic circumstances (Z59.89), problems with daily activities (Z73.9), feeling lonely/isolated (Z60.8), education (Z55.6) Health related social needs details homeless Discharge Plan Discharge Details Chief Complaint: Cellulitis Clinical Impression: Suicidal ideation, Elevated transaminase level, Unsheltered homelessness, Opioid use with withdrawal, Abscess of hand, right Primary Care Provider: Jole Martinez ED Provider: Jarrod Vaughn Home Meds and New Rx's Prescriptions: No Action gabapentin 400 mg capsule 800 mg PO TID Rx Instructions: 3x daily for 14 days
--- NOTE | 2024-10-07 22:26 | W.EDPROG ---
Date of service: 10/07/24 Time of Service: 22:26 Medical Decision Making 39-year-old male presenting with depression and suicidal ideation. History of polysubstance abuse and on Suboxone. Getting treated for cellulitis of the arm as well. No acute events during my shift. Resting comfortably. Signed out to the oncoming team pending voluntary psychiatric bed search. Quality:SDOH Health Related Social Needs: Health related social needs inadequate housing (Z59.1), food insecurity (Z59.41), transportation insecurity (Z59.82), material hardship(utilities) (Z59.12), problem related to primary support group (Z63.9), problems related to housing/economic circumstances (Z59.89), problems with daily activities (Z73.9), feeling lonely/isolated (Z60.8), education (Z55.6) Health related social needs details homeless Discharge Plan Discharge Details Chief Complaint: Cellulitis Clinical Impression: Suicidal ideation, Elevated transaminase level, Unsheltered homelessness, Opioid use with withdrawal, Abscess of hand, right Primary Care Provider: Joel Martinez ED Provider: William Avendaño [place] Meds and New Rx's Prescriptions: No Action gabapentin 400 mg capsule 800 mg PO TID Rx Instructions: 3x daily for 14 days
--- NOTE | 2024-10-07 23:12 | PDOC.MHPN2 ---
Date of service: 10/07/24 Time of Service: 15:40 Mental Health Emergency Note Release [facility] release signed:: Yes Reason for Visit The client is seeking inpatient placement for mental health treatment. In the last 2 weeks has the pt presented for ES prior to today?: No Client Information Client is: Substance use Well Housed: No,status: Homeless Unstable housing Non Suicidal Self Injury Current: No History: yes, See previous. Safety Risk/Harm to Self or Others Current Ideation to Harm Self or Others: No Risk: Does risk to harm exist?: yes. Risk: Low Risk Duty to warn indicated: No Asssessment/Mental Status Appearance: Well groomed Attitude: Cooperative and Friendly Behavior: Unremarkable Speech: Normal Affect: Normal Mood: Happy Thought process: Goal directed Hallucinations: No evidence Delusions: No evidence Attention: Unremarkable Perception: Not impaired Orientation: Fully orientated Memory: Intact Insight: Fair Judgement: Fair Neurovegetative Symptoms Sleep: Decrease Appetitie: Increase Interests: Increase Energy: Increase Substance Use: Drug Issues: Dependence Do you use nicotine?: Yes Have you used substances in the last 7 days?: yes, See previous. Additional Issues: Assaultive/Threatening Behavior: No Medical Concerns: Yes Client engaged in active self harm w/weapon: No Threatening to run away: No Child reported abuse/neglect: No Voluntarily presenting for services: Yes Domestic violence is a concern: No Extreme Psychosis or extreme behavior is present: No Impression The client is the most clear and insightful this physician underwriter as ever seen him. The client asked if the provider could give him something stronger so he could sleep at night. The client shared that he only slept 20 minutes after being given a nighttime med that this physician underwriter doesn't recall. The client share that he is feeling a lot better eating, drinking and showering. The client asked about EMDR and this physician underwriter shared that he should inquire when he goes inpatient as she is not familiar enough with EMDR therapies offered locally or enough in general about them. The client is still continuing to wait in [facility] for inpatient placeian. Plan/Disposition Recommended Disposition: Hospitalization facilities contacted. Plan: [facility] Person reported agreement to plan: Yes Reports/communication Outcome discussed with: ED/Personnel
[2024-10-08] MEDS: cloNIDine 0.1 MG TAB PO (00:24)
--- NOTE | 2024-10-08 06:35 | ED.PROG_ITS ---
Date of service: 10/08/24 Time of Service: 06:35 Medical Decision Making Patient remains in ED waiting for inpatient psych admission for depression and substance use disorder. He is being maintained on Suboxone. Continues antibiotic for cellulitis. No issues on the overnight shift. Quality:SDID Health Related Social Needs: Health related social needs inadequate housing (Z59.1) , food insecurity (Z59.41), transportation insecurity (Z59.82), material hardship(utilities) (Z59.12), problem related to primary support group (Z63.9), problems related to housing/economic circumstances (Z59.89), problems with daily activities (Z73.9), feeling lonely/isolated (Z60.8), education (Z55.6) Health related social needs details homeless Discharge Plan Discharge Details Chief Complaint: Cellulitis Clinical Impression: Suicidal ideation, Elevated transaminase level, Unsheltered homelessness, Opioid use with withdrawal, Abscess of hand, right Primary Care Provider: Joel Martinez ED Provider: Arnulfo Junior [place] Meds and New Rx's Prescriptions: No Action gabapentin 400 mg capsule 800 mg PO TID Rx Instructions: 3x daily for 14 days
--- NOTE | 2024-10-08 07:17 | W.EDPROG ---
Date of service: 10/08/24 Time of Service: 07:17 Medical Decision Making Seeking voluntary placement for substance abuse and depression, no issues reported on prior shift and has no new acute complaints. Will continue to monitor until safe disposition found. Quality:SDOH Health Related Social Needs: Health related social needs inadequate housing (Z59.1), food insecurity (Z59.41), transportation insecurity (Z59.82), material hardship(utilities) (Z59.12), problem related to primary support group (Z63.9), problems related to housing/economic circumstances (Z59.89), problems with daily activities (Z73.9), feeling lonely/isolated (Z60.8), education (Z55.6) Health related social needs details homeless Discharge Plan Discharge Details Chief Complaint: Cellulitis Clinical Impression: Suicidal ideation, Elevated transaminase level, Unsheltered homelessness, Opioid use with withdrawal, Abscess of hand, right Primary Care Provider: Joel Martinez ED Provider: Alex Avendaño [place] Meds and New Rx's Prescriptions: No Action gabapentin 400 mg capsule 800 mg PO TID Rx Instructions: 3x daily for 14 days
[2024-10-08] MEDS: Sulfameth/Trimeth DS TAB 1 TAB PO (07:56)
[2024-10-08] MEDS: Gabapentin 400 MG CAP 800 MG PO (07:57)
[2024-10-08] MEDS: Buprenorphine/Naloxone 8 mg/2 mg FILM 1 EACH SL (07:57)
[2024-10-08 07:58] VITALS: BP 94/53; PULSE 95; RESP 16; TEMP 36.4; O2SAT 100
[2024-10-08] MEDS: Sulfameth/Trimeth DS, 2 TABS/BTL 1 TAB PO (09:52)
--- NOTE | 2024-10-08 09:54 | ED.PROG_ITS ---
Date of service: 10/08/24 Time of Service: 09:54 Medical Decision Making Patient became upset because he states that he also is wanting man from his girlfriend. He currently denies any thoughts of self-harm or wanting to harm others and is requesting to be discharged. We did page crisis screener but patient did not want to stay to talk to them. I do not have enough to hold him involuntarily. He will follow-up with his PCP return precautions given. Quality:SDOH Health Related Social Needs: Health related social needs inadequate housing (Z59.1) , food insecurity (Z59.41), transportation insecurity (Z59.82), material hardship(utilities) (Z59.12), problem related to primary support group (Z63.9), problems related to housing/economic circumstances (Z59.89), problems with daily activities (Z73.9), feeling lonely/isolated (Z60.8), education (Z55.6) Health related social needs details homeless Discharge Plan Disposition Patient Disposition: Home Condition: Stable Discharge Details Clinical Impression: Elevated transaminase level, Unsheltered homelessness, Opioid use with withdrawal, Abscess of hand, right Primary Care Provider: Joel Martinez ED Provider: Alex Avendaño Home Meds and New Rx's Prescriptions: Continued gabapentin 400 mg capsule 800 mg PO TID Rx Instructions: 3x daily for 14 days Discharge Instructions Additional Instructions: Please follow-up with your primary care provider. Also follow-up with [facility] services. If you feel when you have worsening thoughts of self- harm return to the emergency department for reevaluation.
--- NOTE | 2024-10-08 10:38 | NUR.NOTE ---
pt left asked for us to check his belongs to look for a chain. we could not find the chain. became upset, wanted to leave, angry and crying-it was an important chain and he needed to find it. someone had told him he had everything of his with his belongs-they had lied-now he is distrustful of everyone. was notified, notifed, security, and care mgmt. pt even more upset when he could not find other things in his belongings. we are thinking it was his drug paraphenalia that had been taken out-though he never specifically said that it was that. he was crying about ashes of his significant other that were not with his things. pt was given discharge instructions along with his bactrim and telephone number for Muna Stephens. pt angry and crying all the way to the exit door. also noted that his belongings checklist was not thoroughly completed.. Nursing Note:
--- NOTE | 2024-10-08 11:06 | PDOC.CMDIS ---
Date of service: 10/08/24 Time of Service: 10:00 Care Management Discharge Plan Reason for Hospitalization: SI Discharge Plan: Jose left AMA today. He was clearly upset on discharge as he felt that all of his belongings were not present. He had remembrances of his that were not with his belongings. He was walked out by security. [facility] was notified by [facility] staff. [facility] Health Related Social Needs: Health related social needs inadequate housing (Z59.1), food insecurity (Z59.41), transportation insecurity (Z59.82), material hardship(utilities) (Z59.12), problem related to primary support group (Z63.9), problems related to housing/economic circumstances (Z59.89), problems with daily activities (Z73.9), feeling lonely/isolated (Z60.8), education (Z55.6) Health related social needs details homeless
--- NOTE | 2024-10-08 17:39 | MHPN_ITS ---
Date of service: 10/08/24 Time of Service: 10:00 Mental Health Emergency Note Release [facility] release signed:: Yes Reason for Visit Client left this afternoon without engaging in a safety plan. In the last 2 weeks has the pt presented for ES prior to today?: No Client Information Well Housed: No,status: Homeless Stable housing Non Suicidal Self Injury Current: No History: No Safety Risk/Harm to Self or Others Current Ideation to Harm Self or Others: No Risk: Does risk to harm exist?: No Risk: Low Risk Duty to warn indicated: No Impression The client left [facility] and refused to stay to engage in a safety plan. Plan/Disposition Recommended Disposition: [facility] Services [facility] Services: Other, Hospitalization No and Therapy. Reports/communication Outcome discussed with: ED/Personnel
== END 2024-10-08 10:21 | disposition home or self-care (01) ==
PROVIDERS: Emergency Medicine; Emergency Provider Emergency Medicine; PCP Family Medicine
DX: R45.851 Suicidal ideations (principal); F32.A Depression, unspecified; R74.01 Elevation of levels of liver transaminase levels; F11.93 Opioid use, unspecified with withdrawal; L02.511 Cutaneous abscess of right hand; Z59.00 Homelessness unspecified
CPT/HCPCS: 00123; 36415; 80053; 80307; 82962; 83690; 87040; 96127; 96365; 96366; 96375; 99285; 73130; 81003; 83605; 83735; 85025; 85610; 99284; J0131; J2405

== ENCOUNTER 2025-03-06 15:15 | Emergency (ER) | payer MEDICAID, SELFPAY ==
[2025-03-06 15:30] VITALS: BP 113/77; PULSE 73; RESP 20; TEMP 37.2; O2SAT 93
--- NOTE | 2025-03-06 15:30 | DI.RAD_ITS ---
Exam(s) XR HAND LT COMPLETE EXAM: XR HAND LT COMPLETE CLINICAL HISTORY: pain and swelling. TECHNIQUE: 2D digital imaging was performed. Three views. COMPARISON: CR XR HAND RT COMPLETE from 10/04/2024 FINDINGS: BONES: No acute fracture is present. No bony destructive lesion is seen. JOINTS: No dislocation present. No significant degenerative changes. SOFT TISSUE: Soft tissue swelling over the dorsum of the hand. IMPRESSION: Soft tissue swelling. No evidence of fracture. DATA REPOSITORY: RADIATION DOSE DELIVERED:
[2025-03-06 15:32] VITALS: BP 113/77; PULSE 73; RESP 20; TEMP 37.2; O2SAT 93
--- NOTE | 2025-03-06 16:12 | W.ED.GENAD ---
Discharge Plan Disposition Patient Disposition: Home Condition: Stable Discharge Details Clinical Impression: Acute paronychia of thumb Primary Care Provider: Joel Martinez ED Provider: Adilia Portillo Home Meds and New Rx's Prescriptions: New clindamycin HCl [Cleocin HCl] 150 mg capsule 450 mg PO TID Qty: 90 0RF Continued gabapentin 400 mg capsule 800 mg PO TID Rx Instructions: 3x daily for 14 days buprenorphine-naloxone 8-2 mg film 1 film buccal DAILY Patient Comments: 1 film buccally every 24 hours Discharge Instructions Instructions: Cellulitis (Skin Infection), Adult ED, Paronychia ED Additional Instructions: take antibiotic as prescribed motrin and tylenol as needed for pain wash with soap and water daily recheck in 48 hours return earlier with spreading redness, fever, worsening pain Referrals: Joel Martinez DO [Primary Care Provider, Medicine] Discharge Data Discharge Date/Time-TO BE ENTERED AT DEPARTURE: 03/06/25 16:18 HPI General Date/Time Provider Initiated Documentation: 03/06/25 15:41. HPI Narrative: This 47-year-old male presents with report of left thumb pain. He states that it became red yesterday and started hurting this morning when he awoke. He denies any recent illicit substance use. He denies any fever or chills. Related Data Home Medications ?Medication ?Instructions ?Recorded ?Confirmed gabapentin 400 mg capsule 800 mg PO TID 08/10/24 03/06/25 buprenorphine 8 mg-naloxone 2 mg 1 film buccal DAILY 03/06/25 03/06/25 sublingual film clindamycin HCl 150 mg capsule 450 mg (3 x 150 mg) PO TID #90 caps 03/06/25 (Cleocin HCl) Previous Rx's ?Medication ?Instructions ?Recorded clindamycin HCl 150 mg capsule 450 mg (3 x 150 mg) PO TID #90 caps 03/06/25 (Cleocin HCl) Allergies Allergy/AdvReac Type Severity Reaction Status Date / Time No Known Allergies Allergy Verified 03/06/25 15:29 General Stated Complaint: Cellulitis KAVEH: 4 Exam Narrative Exam Narrative: Paronychia noted on left thumb mild surrounding erythema, hands bilaterally and lower extremities with pick martinez with surrounding erythema and excoriation Course Vital Signs Vital signs: Vital Signs Temperature 37.2 C 03/06/25 15:30 Pulse 73 03/06/25 15:30 Respiratory Rate 20 03/06/25 15:30 Blood Pressure 113/77 03/06/25 15:30 Pulse Oximetry 93 03/06/25 15:30 Temperature 37.2 C 03/06/25 15:32 Temperature Source Temporal Artery Scan 03/06/25 15:32 Pulse 73 03/06/25 15:32 Respiratory Rate 20 03/06/25 15:32 Blood Pressure 113/77 03/06/25 15:32 Blood Pressure Position Sitting 03/06/25 15:32 Pulse Oximetry 93 03/06/25 15:32 Oxygen Delivery Method Room Air 03/06/25 15:32 Oxygen Flow Rate 0 03/06/25 15:32 Pain Level 7 03/06/25 15:32 Medical Decision Making Results: Hand x-ray was ordered, per radiology interpretation my review no acute abnormality Patient with paronychia and cellulitis, diffuse skin excoriations likely consistent with chronic IV drug use. Patient afebrile with stable vitals. Procedure: 18-gauge needle was used after cleansing area with ChloraPrep to drain the paronychia, fluid was expressed and a dressing was applied Patient will be placed on clindamycin he is encouraged to use soap and water to clean wound and soak it daily. Recheck in 48 hours encouraged return precautions reviewed and patient expressed understanding Quality:SDOH Health Related Social Needs: Health related social needs inadequate housing food insecurity transpo insecurity material hardship personal safety house/econ circumstance daily activities lonely/isolated education Health related social needs details homeless PFSH All Active Problems (Updated 03/06/25 @ 16:08 by GIACOMO Aquino) Acute paronychia of thumb (Acute) Hepatitis C (Chronic) Suicidal ideation (Acute) Hyperglycemia (Acute) Opiate addiction (Acute) Leukocytosis (Acute) Alcohol withdrawal (Acute) Elevated transaminase level (Acute) Cellulitis of hand, right (Acute) Cellulitis of left leg (Acute) Cellulitis and abscess of right leg (Acute) Cutaneous abscess of right ankle (Acute) Abscess of right forearm (Acute) Hypocalcemia (Acute) Abscess of right arm (Acute) Acute thrombosis of right basilic vein (Acute) Cellulitis of arm, right (Acute) Fever (Acute) Acute Lyme disease (Acute) Duodenal ulcer disease (Acute) Alcohol withdrawal (Acute) Chronic calcific pancreatitis (Acute) Hepatic dysfunction (Acute) Abdominal pain (Acute) Nausea & vomiting (Acute) Fatty liver (Acute) IV drug user (Chronic) Alcohol abuse (Chronic) Transaminitis (Chronic) Gallbladder polyp (Acute) GI bleeding (Chronic) Dilated pancreatic duct (Acute) Opioid abuse (Chronic) Discharge planning issues (Acute) Thrombocytopenia (Chronic) Portal hypertensive gastropathy (Acute) Nicotine dependence (Acute) Unsheltered homelessness (Acute) Homelessness (Acute) Agitation (Acute) COVID-19 (Acute) Alcohol withdrawal (Acute) Acute pancreatitis (Acute) Duodenal mass (Acute) Alcoholism (Acute) Infected abrasion of skin of right ankle (Acute) Infected abrasion of skin of left ankle (Acute) Agitation (Acute) Polysubstance use disorder (Acute) Contusion of right knee (Acute) Lyme disease (Acute) Abrasion (Acute) Trauma (Acute) Inflammatory arthritis (Acute) Alcoholic ketoacidosis (Acute) Vomiting (Acute) Abdominal pain (Acute) Alcoholic ketoacidosis (Acute) Abdominal pain with vomiting (Acute) Depression with anxiety (Acute) Family history of schizophrenia (Chronic) Father Migraine with aura (Acute) Homeless (Acute) Alcoholic fatty liver (Acute) Severe depression (Chronic) Alcohol abuse (Chronic) Heroin abuse (Chronic) Elevated transaminase level (Acute) Chronic back pain (Chronic) Anxiety, generalized (Chronic) Medical History Duodenitis DKA (diabetic ketoacidosis) Pancreatitis History of alcohol abuse Depression Opiate addiction Surgical History No significant past surgical history No significant past surgical history Family History Mother Heart disease Asthma Father No problems noted. Sister Asthma Sister No problems noted. Brother No problems noted. Grandfather Essential hypertension Heart disease Asthma Grandfather Essential hypertension Heart disease Grandmother No problems noted. Grandmother No problems noted. Son No problems noted. Daughter No problems noted. Daughter Asthma Mother Heart disease Diabetes Father Heart disease Stroke Hypertension Self No problems noted. Sister Diabetes Hypertension Maternal Grandmother Cancer type Social History Smoking/Tobacco Use Status: Current every day Tobacco Type: cigarettes Smoking packs per day: 1 Smoking cigarettes per day: 20.0 Years smoked: 30 Smoking pack-years: 30.00 Counseling given: provider counseling and support medications Smoking risk assessment performed?: Yes Alcohol Intake: current Alcohol Intake frequency: 0-2 drinks per day Alcohol type: beer and hard liquor Counseling given: Yes Counseling provided: provider counseling and other Drug use: Daily Substance use type: marijuana, heroin, opiates, IV drugs, methamphetamine and other Details: fentanyl Counseling given: Yes Counseling provided: provider counseling Details: last use yesterday, pt stated no IVDU in 6 months but new track martinez and infections in hands/neck noted, drug paraphernalia/knives in possession on arrival. Housing: homeless Number of Children: 3 Other: Lives alone in a tent in the [facility] What type of physical activity do you participate in: none Drive intox or ride w/intox bulk driver: No Working smoke detector in home: Yes Carbon monox detector in home: Yes Do you feel safe at home: Yes (homeless) Do you feel safe in your relationship?: Yes
[2025-03-06] MEDS: Ibuprofen 600 MG TAB PO (16:14)
== END 2025-03-06 16:18 | disposition home or self-care (01) ==
PROVIDERS: Emergency Provider Physician Assistant; PCP Family Medicine
DX: L03.012 Cellulitis of left finger (principal); Z59.10 Inadequate housing, unspecified; Z59.41 Food insecurity; Z59.87 Material hardship due to limited financial resources, not elsewhere classified
CPT/HCPCS: 99283; 99284; 73130

== ENCOUNTER 2025-04-02 15:14 | Emergency (ER) | payer MEDICAID, SELFPAY ==
[2025-04-02 15:34] VITALS: PULSE 98; RESP 18; TEMP 36.7; O2SAT 98
[2025-04-02 16:56] VITALS: PULSE 98; RESP 18; TEMP 36.7; O2SAT 98
--- NOTE | 2025-04-02 17:19 | ED.GENADUL_ITS ---
Discharge Plan Disposition Patient Disposition: Eloped Discharge Details Clinical Impression: Abscess, Active intravenous drug use Primary Care Provider: Joel Martinez ED Provider: Adilia Portillo Home Meds and New Rx's Prescriptions: No Action gabapentin 400 mg capsule 800 mg PO TID Rx Instructions: 3x daily for 14 days buprenorphine-naloxone 8-2 mg film 1 film buccal DAILY Patient Comments: 1 film buccally every 24 hours clindamycin HCl [Cleocin HCl] 150 mg capsule 450 mg PO TID Qty: 90 0RF Discharge Data Discharge Date/Time-TO BE ENTERED AT DEPARTURE: 04/02/25 17:58 HPI General Date/Time Provider Initiated Documentation: 04/02/25 15:28 . HPI Narrative: This 40-year-old hyperglycemia, leukocytosis, alcohol withdrawal, recurrent cell ulitis opiate addiction presents with right thumb pain and left arm abscess. Denies fever or chills. Denies trauma to thumb. Denies fever or chills. Related Data Home Medications ?Medication ?Instructions ?Recorded ?Confirmed gabapentin 400 mg capsule 800 mg PO TID 08/10/2404/02 buprenorphine 8 mg-naloxone 2 mg 1 film buccal DAILY 0 03/06/25 04/02/25 sublingual film clindamycin HCl 150 mg capsule 450 mg (3 x 150 mg) PO TID #90 caps 03/06/25 04/02/25 (Cleocin HCl) Previous Rx's ?Medication ?Instructions ?Recorded clindamycin HCl 150 mg capsule 450 mg (3 x 150 mg) PO TID #90 caps 03/06/25 (Cleocin HCl) Allergies Allergy/AdvReac Type Severity Reaction Status Date / Time No Known Allergies Allergy Verified 04/02/25 15:40 General Stated Complaint: Cellulitis KAVEH: 3 Exam Narrative Exam Narrative: Alert 40-year-old male, tearful, labile, erythema noted to right thumb, tender with swelling, abscess noted to left forearm, purulent drainage noted answering questions appropriately Course Vital Signs Vital signs: Vital Signs Temperature 36.7 C 04/02/25 15:34 Pulse 98 H 04/02/25 15:34 Respiratory Rate 18 04/02/25 15:34 Pulse Oximetry 98 04/02/25 15:34 Temperature 36.7 C 04/02/25 16:56 Temperature Source Oral 04/02/25 16:56 Pulse 98 H 10/06/25 16:56 Respiratory Rate 18 04/02/25 16:56 Blood Pressure Position Sitting 04/02/25 16:56 Pulse Oximetry 98 04/02/25 16:56 Oxygen Delivery Method Room Air 04/02/25 16:56 Oxygen Flow Rate 0 04/02/25 16:56 Pain Level 8 04/02/25 16:56 Comment patient state his wounds hurts too much for the bp to be done 04/02/25 16:56 Lab/Test Results Lab/Test Results: 04/02/25 16:37 Blood Blood Culture - Pending 04/02/25 16:37 Blood Blood Culture - Pending Medical Decision Making I ordered blood cultures, IV, IV antibiotics, x-rays on this patient presenting with abscess on his left forearm and lymphangitis in right thumb swelling and tenderness. Patient has refused IV and screamed several expletives at the nurse who is attempting ultrasound-guided IV. I went into chat with the patient and he was quite agitated and used use another explanation of why I was in the room. While this patient is quite ill, does have abscess with lymphangitis, he is also a risk to the members of this team as well as to himself. I mention to the patient that if he cannot sit still and allow us to place an IV we could not safely give him IV antibiotics and he became very agitated and walked out of the room with his belongings. Quality:SDOH Health Related Social Needs: Health related social needs inadequate housing food in security transpo insecurity material hardship personal safety house/econ circumstance daily activities lonely/isolated education Health related social needs details homeless PFSH All Active Problems (Updated 04/02/25 @ 20:33 by GIACOMO Aquino) Active intravenous drug use (Acute) Abscess (Acute) Acute paronychia of thumb (Acute) Hepatitis C (Chronic) Suicidal ideation (Acute) Hyperglycemia (Acute) Opiate addiction (Acute) Leukocytosis (Acute) Alcohol withdrawal (Acute) Elevated transaminase level (Acute) Cellulitis of hand, right (Acute) Cellulitis of left leg (Acute) Cellulitis and abscess of right leg (Acute) Cutaneous abscess of right ankle (Acute) Abscess of right forearm (Acute) Hypocalcemia (Acute) Abscess of right arm (Acute) Acute thrombosis of right basilic vein (Acute) Cellulitis of arm, right (Acute) Fever (Acute) Acute Lyme disease (Acute) Duodenal ulcer disease (Acute) Alcohol withdrawal (Acute) Chronic calcific pancreatitis (Acute) Hepatic dysfunction (Acute) Abdominal pain (Acute) Nausea & vomiting (Acute) Fatty liver (Acute) IV drug user (Chronic) Alcohol abuse (Chronic) Transaminitis (Chronic) Gallbladder polyp (Acute) GI bleeding (Chronic) Dilated pancreatic duct (Acute) Opioid abuse (Chronic) Discharge planning issues (Acute) Thrombocytopenia (Chronic) Portal hypertensive gastropathy (Acute) Nicotine dependence (Acute) Unsheltered homelessness (Acute) Homelessness (Acute) Agitation (Acute) COVID-19 (Acute) Alcohol withdrawal (Acute) Acute pancreatitis (Acute) Duodenal mass (Acute) Alcoholism (Acute) Infected abrasion of skin of right ankle (Acute) Infected abrasion of skin of left ankle (Acute) Agitation (Acute) Polysubstance use disorder (Acute) Contusion of right knee (Acute) Lyme disease (Acute) Abrasion (Acute) Trauma (Acute) Inflammatory arthritis (Acute) Alcoholic ketoacidosis (Acute) Vomiting (Acute) Abdominal pain (Acute) Alcoholic ketoacidosis (Acute) Abdominal pain with vomiting (Acute) Depression with anxiety (Acute) Family history of schizophrenia (Chronic) Father Migraine with aura (Acute) Homeless (Acute) Alcoholic fatty liver (Acute) Severe depression (Chronic) Alcohol abuse (Chronic) Heroin abuse (Chronic) Elevated transaminase level (Acute) Chronic back pain (Chronic) Anxiety, generalized (Chronic) Medical History Duodenitis DKA (diabetic ketoacidosis) Pancreatitis History of alcohol abuse Depression Opiate addiction Surgical History No significant past surgical history No significant past surgical history Family History Mother Heart disease Asthma Father No problems noted. Sister Asthma Sister No problems noted. Brother No problems noted. Grandfather Essential hypertension Heart disease Asthma Grandfather Essential hypertension Heart disease Grandmother No problems noted. Grandmother No problems noted. Son No problems noted. Daughter No problems noted. Daughter Asthma Mother Heart disease Diabetes Father Heart disease Stroke Hypertension Self No problems noted. Sister Diabetes Hypertension Maternal Grandmother Cancer type Social History (Reviewed 05/10/24 @ 10:48 by MAURA Aguayo Smoking/Tobacco Use Status: Current every day Tobacco Type: cigarettes Smoking packs per day: 1 Smoking cigarettes per day: 20.0 Years smoked: 30 Smoking pack- years: 30.00 Counseling given: provider counseling and support medications Smoking risk assessment performed?: Yes Alcohol Intake: current Alcohol Intake frequency: 0-2 drinks per day Alcohol type: beer and hard liquor Counseling given: Yes Counseling provided: provider counseling and other Drug use: Daily Substance use type: marijuana, heroin, opiates, IV drugs, methamphetamine and other Details: fentanyl Counseling given: Yes Counseling provided: provider counseling Details: last use yesterday, pt stated no IVDU in 6 months but new track martinez and infections in hands/neck noted, drug paraphernalia/knives in possession on arrival. Housing: homeless Number of Children: 3 Other: Lives alone in a tent in the [facility] What type of physical activity do you participate in: none Drive intox or ride w/intox driver's license examiner: No Working smoke detector in home: Yes Carbon monox detector in home: Yes Do you feel safe at home: Yes (homeless) Do you feel safe in your relationship?: Yes
--- NOTE | 2025-04-02 17:51 | NUR.NOTE ---
Nursing Note: Patient requires ultrasound IV. This advertising copy writer to bedside to start IV. Patient is frequently shifting around in the bed- asked patient to lay down and place arm flat on the bed for the procedure while guiding his arm in the position needed. Patient stated FUCK YOU I'M DONE! and pulled arm away and will not allow IV attempts at this time. Provider made aware and to bedside to see patient
--- NOTE | 2025-04-03 04:19 | NUR.NOTE ---
Nursing Note: This advertising copy writer accessed patients chart to print chart notes as this individual presented to [facility] ED to be evaluated for same. [facility] called to request records. Release of information documentation received and information was faxed to [facility].
== END 2025-04-02 17:58 | disposition left against medical advice (07) ==
PROVIDERS: Emergency Provider Physician Assistant; PCP Family Medicine
DX: L02.413 Cutaneous abscess of right upper limb (principal); F11.90 Opioid use, unspecified, uncomplicated; I89.1 Lymphangitis; Z59.10 Inadequate housing, unspecified; Z59.41 Food insecurity; Z59.87 Material hardship due to limited financial resources, not elsewhere classified
CPT/HCPCS: 99283 ×2; 80053; 82805; 85652; 87040; 83605; 85025; 86140